=== PATIENT | female | born 1990 | race Caucasian/White ===

== ENCOUNTER 2019-11-12 16:20 | Emergency (ER) | payer OTHER, SELFPAY ==
[2019-11-12] VITALS (9 sets, daily range): BP systolic 93–129; BP diastolic 46–76; PULSE 74–95; RESP 14–22; TEMP 36.7–36.9; O2SAT 99–100
--- NOTE | ~2019-11-12 | XR_ITS ---
EXAMINATION: XR ankle RT min 3V DATE: 11/12/2019 18:26 INDICATION: Lateral right ankle pain post fall TECHNIQUE: Anteroposterior, oblique, mortise, and lateral views of the right ankle were obtained. COMPARISON: None. FINDINGS: Alignment is normal. No fracture. Joint spaces are well maintained. No ankle joint effusion. The so ft tissues are unremarkable. IMPRESSION: 1. Negative right ankle radiographs. Reviewed, dictated and finalized at location A. DUMPER
--- NOTE | ~2019-11-12 | XR_ITS ---
EXAMINATION: XR chest 2V DATE: 11/12/2019 17:18 INDICATION: Midsternal chest pain, syncope and dizziness TECHNIQUE: frontal and lateral views of the chest were obtained. COMPARISON: Chest radiograph dated 07/02/2019 FINDINGS: The lungs remain clear with no focal airspace opacities, pulmonary edema, pleural effusion or pneumot horax. Small portion of the mid right lung is obscured on the frontal projection by a right-sided 2-l ead cardiac pacemaker with lead tips project over the right atrium and right ventricle. The cardiomed iastinal silhouette is normal. Visualized bones and soft tissues are unremarkable. IMPRESSION: 1. No acute cardiopulmonary disease. Reviewed, dictated and finalized at location A. E CASE MANAGEMENT
--- NOTE | ~2019-11-12 | CT_ITS ---
EXAMINATION: CTA chest PE protocol DATE: 11/12/2019 18:13 INDICATION: Chest pain. Syncope. TECHNIQUE: Computed tomography (CT) pulmonary angiogram of the chest was performed with 100 mL Omnipa que-350 intravenous contrast. Additional 3D reconstructions utilizing coronal maximum intensity proje ction (MIP) were performed. Automated exposure control and iterative reconstruction technique were em ployed. The dose-length product was 875.13 mGy-cm. COMPARISON: None FINDINGS: Good contrast opacification of the pulmonary arteries. There is mild streak artifact from dense contr ast in the superior vena cava and right atrium. Mild scattered respiratory motion artifact does not s ignificantly limit evaluation. No pulmonary embolism. No pneumonia, pulmonary edema or pleural effusi on. Heart size is normal. No pericardial effusion. Dual-lead cardiac pacemaker with leads terminating near the right atrial appendage and apex of the right ventricle. No pathologically enlarged thoracic lymphadenopathy. Visualized upper abdomen is unremarkable. Minimal likely physiologic anterior wedgi ng at T11-L1. IMPRESSION: 1. No pulmonary embolism or other acute cardiopulmonary disease. Reviewed, dictated and finalized at location A. CAL RECORD ADMINISTRATOR
--- NOTE | 2019-11-12 16:26 | ECG_ITS ---
Measurements Intervals [place] Rate: 81 P: 40 RI: 128 QRS: 5 QRSD: 114 T: 14 QT: 384 QTc: 447 Interpretive Statements SINUS RHYTHM VOLTAGE CRITERIA FOR LVH BORDERLINE ECG Electronically Signed On 11-13-2019 6:49:12 SAMPLING THEORY TEACHER by Paul Casey D.O.
--- NOTE | 2019-11-12 16:36 | ED.SYNCOPE ---
HPI - Syncope General Chief Complaint: Syncope Stated Complaint: SYNCOPE Time Seen by Provider: 11/12/19 16:20 Source: patient Mode of arrival: EMS Limitations: no limitations History of Present Illness HPI narrative: The pt is a 29 y/o female who presents to the ED, via EMS, c/o syncope. Pt states that she has generally felt off all day, but while at the [facility], she began to experience dizziness and lightheadedness due to her being at there. She then experienced syncope. Pt reports ABD pain, right ankle pain secondary to her falling, resolved nausea, and midsternal CP. Pt notes that she has experienced rhinorrhea, but notes she has a cold. Pt denies vomiting and diarrhea. Pt states that she has had a UTI for the past month, and has been on five separate antibiotics without relief. Pt also notes that she has hemorrhoids. The pt states that her infrastructure tech is Dr. Negro in [place], [place]. MD complaint: loss of consciousness (Syncope) Prodromal symptoms: lightheaded and other (Dizziness, Feeling off ) Context: other (At [facility]) Injuries sustained associated with event: RLE (Right ankle) Current symptoms: chest pain (Midsternal), nausea (Resolved), abdominal pain and other (Right ankle pain, rhinorrhea (pt has a cold)) History: seizure disorder Related Data Allergies Allergy/AdvReac Type Severity Reaction Status Date / Time adhesive tape Allergy Mild Rash Verified 11/12/19 18:20 lorazepam Allergy Mild Itching Unverified 07/11/19 13:59 paroxetine Allergy Mild Rash Verified 11/12/19 18:20 lacosamide Allergy Unknown Unknown Verified 11/12/19 18:26 Review of Systems Review of Systems: All systems reviewed & are unremarkable except as noted in HPI and below Constitutional: Constitutional: Reports other (Feeling off (Prior to syncopal episode)) ENT: Reports other (Rhinorrhea (Pt has a cold)) Cardiovascular: Cardiovascular: Reports chest pain (Midsternal) Gastrointestinal: Gastrointestinal: Reports abdominal pain, Denies diarrhea, Reports nausea (Resolved) and Denies vomiting Musculoskeletal: Musculoskeletal: Reports arthralgias (Right ankle) and Reports other (Right ankle injury) Neurologic: Reports dizziness (Prior to syncopal episode), Reports syncope and Reports other (Lightheadedness (Prior to syncopal episode)) [facility] Past Medical History Medical History (Updated 11/12/19 @ 21:00 by Daniela Marin MD) Anxiety Depression H/O cardiac pacemaker Hemorrhoid Postural orthostatic tachycardia syndrome Seizure Sick sinus syndrome UTI (urinary tract infection) Surgical History Surgical History (Updated 11/12/19 @ 16:53 by Jesus Savage) S/P cardiac pacemaker procedure Social History Social History (Updated 11/12/19 @ 16:53 by Jessu Savage) Smoking status: Never smoker Comments Grievance And Appeals Specialist: Dr. Negro Exam Const: General: cooperative, no acute distress and alert Nutritional Appearance: well nourished Orientation/consciousness: patient oriented x3 Limitations: no limitations HENMT: Mouth: Yes lip normal and Yes moist mucous membranes Eyes: Conjunctivae: conjunctivae normal Pupils: Equal, round and reactive pupils present Resp: Effort & Inspection: normal respiratory effort Auscultation: clear to auscultation bilaterally Cardio: Rate: regular rate Rhythm: regular rhythm Skin: General skin exam: normal color Neuro: General: patient oriented x3 Cognition (Neuro): normal cognition Speech: normal speech Extrem: General: normal to inspection, full ROM and no clubbing, cyanosis or edema Right lower extremity: ankle Details: tenderness (Right lateral ankle) Psych: Mental Status: mental status grossly normal Affect: normal affect Attitude: cooperative Course Course Emergency Course: Patient with no evidence of UT on EKG and troponins. Patient without pulmonary embolism noted on CT scan. Patient with unremarkable testing in the ED. Patient has noted history of vasovagal syncope
[2019-11-12 17:09] LABS: Basophils Percent Auto 0.4 % (0.2-1.2); Eosinophils Absolute Auto 0.2 K/mm3 (0-0.3); Eosinophils Percent Auto 2.1 % (0-4.4); Hematocrit 37.8 % (37.0-47.0); Hemoglobin 11.5 g/dL (12.0-15.0); Immature Granulocyte Absolute 0.02 K/mm3 (0.00-0.031); Immature Granulocyte Percent A 0.2 % (0-0.5); Lymphocytes Absolute Auto 2.68 K/mm3 (0.9-3.2); Lymphocytes Percent Auto 24.3 % (18.3-44.2); Mean Corpuscular HGB Conc 30.4 g/dl (32-36); Mean Corpuscular Hemoglobin 25.6 pg (26-34); Mean Corpuscular Volume 84.2 fl (80-100); Mean Platelet Volume 10.1 fl (7.4-10.4); Monocytes Absolute Auto 0.5 K/mm3 (0.1-0.6); Monocytes Percent Auto 4.9 % (2.6-8.5); Neutrophils Absolute Auto 7.5 K/mm3 (1.3-6.7); Neutrophils Percent Auto 68.1 % (45.5-73.1); Platelet Count Result 345 k/mm3 (150-375); Red Blood Count 4.49 M/mm3 (4.2-5.4); Red Cell Distribution Width 14.5 % (11.5-14.5)
[2019-11-12 17:22] LABS: Prothrombin Time 12.9 Seconds (11.1-14.7)
[2019-11-12 17:24] LABS: Alanine Aminotransferase 15 U/L (4-35); Alkaline Phosphatase 103 U/L (38-126); Aspartate Amino Transferase 19 U/L (14-36); Bilirubin,Total 0.2 mg/dL (0.2-1.3); Blood Urea Nitrogen 11 mg/dL (7-17); Calcium 8.7 mg/dL (8.4-10.2); Carbon Dioxide 27 mmol/L (22-30); Chloride 101 mmol/L (98-107); Estimated CRCL calculation 115 ml/min; Estimated Glomerular Filt Rate > 60; Glucose 89 mg/dL (65-105); Phosphorus 4.2 mg/dL (2.5-4.5); Sodium 137 mmol/L (137-145)
[2019-11-12 17:32] LABS: D Dimer 0.82 ug/mL (<0.48)
[2019-11-12 17:36] LABS: Troponin I < 0.012 ng/mL (0.000-0.034)
[2019-11-12 17:51] LABS: Add Urine Microscopic? YES; Appearance Urine Clear (Clear); Bacteria Urine Trace /hpf; Bilirubin Urine Negative (Negative); Blood Urine 1+ (Negative); Color Urine Yellow (Yellow); Glucose Urine UA Negative (Negative); Ketones Urine Negative (Negative); Leukocyte Esterase Ur 2+ LEU/UL (Negative); Mucus Urine Rare /lpf; Nitrate Urine Negative (Negative); Protein Urine Negative (Negative); RBC Urine 0-2 /hpf (0-2); Specific Grav Ur 1.016 (1.001-1.035); Squamous Epithelial Cell Urine Many /hpf (Few); Urobilinogen Urine Negative mg/dL (<2.0); WBC Urine 0-3 /hpf
[2019-11-12] MEDS: IBUPROFEN 600 MG TABLET PO (18:27)
[2019-11-12 20:48] LABS: Troponin I < 0.012 ng/mL (0.000-0.034)
== END 2019-11-12 21:13 | disposition home or self-care (01) ==
PROVIDERS: Emergency Provider Emergency Medicine
DX: R55 Syncope and collapse (principal); R07.9 Chest pain, unspecified; S93.401A Sprain of unspecified ligament of right ankle, initial encounter; G40.909 Epilepsy, unspecified, not intractable, without status epilepticus; F41.9 Anxiety disorder, unspecified; F32.9 Major depressive disorder, single episode, unspecified; Z95.0 Presence of cardiac pacemaker; X58.XXXA Exposure to other specified factors, initial encounter
CPT/HCPCS: 36415; 71046; 71275; 73610; 80053; 81001; 81025; 83735; 84100; 84484; 85025; 85380; 85610; 85730; 87804; 93005; 99284; A9270; Q9967

== ENCOUNTER 2019-12-13 14:43 | Emergency (ER) | payer OTHER, SELFPAY ==
[2019-12-13] VITALS (7 sets, daily range): BP systolic 106–129; BP diastolic 57–75; PULSE 73–92; RESP 14–30; O2SAT 98–100
--- NOTE | ~2019-12-13 | XR_ITS ---
EXAMINATION: XR chest 2V DATE: 12/13/2019 15:04 INDICATION: Syncope. Shortness of breath and chest pain. TECHNIQUE: Frontal and lateral views of the chest were obtained. COMPARISON: Chest 2 views 11/12/2019 FINDINGS: The chest demonstrates clear lungs without pneumonia, pleural effusion, or pneumothorax. Th e heart size is normal. There is a right chest wall pacer with leads in the right atrium and right ve ntricle. IMPRESSION: 1. No acute cardiopulmonary disease. Reviewed, dictated and finalized at location A.
--- NOTE | 2019-12-13 14:49 | ED.SYNCOPE ---
HPI - Syncope General Chief Complaint: Syncope <Norm Parker MD - Last Filed: 12/14/19 05:54> Stated Complaint: Syncopal Episode <Norm Parker MD - Last Filed: 12/14/19 05:54> Source: patient <Kelsey Queen MD - Last Filed: 12/14/19 06:06> Mode of arrival: EMS <Kelsey Queen MD - Last Filed: 12/14/19 06:06> Limitations: no limitations <Kelsey Queen MD - Last Filed: 12/14/19 06:06> History of Present Illness HPI narrative: A 29 y/o female pt has presented to the ED via EMS with c/o of syncope. Pt states that she was shopping at [employer] in [place], and became weak. Pt sat down on a stool then passed out. She states that she blacked out, but remembers most of what happened. Pt has a history of similar episodes with the last occurring a few months ago.Pt states that she has CP, dysuria, hematuria, loose stools, weakness, and dizziness. Pt denies nausea and ABD pain. Pt also denies a Hx of smoking. Pt notes that she has a Hx of POTS and sick sinus syndrome. Pt has a pacemaker. Pt notes that she was seen at the ED for strep throat last week and was given a Z [place]. After she finished her antibiotics, she was given more antibiotics for an infected lymph node. She notes that she had tubal ligation back in July. Pt denies taking control medication and recent travel. Her chaser helper is Dr. Negro. <Kelsey Queen MD - Last Filed: 12/14/19 06:06> MD complaint: loss of consciousness <Kelsey Queen MD - Last Filed: 12/14/19 06:06> Prodromal symptoms: other (weakness) <Kelsey Queen MD - Last Filed: 12/14/19 06:06> Context: at rest (sitting on a stool) <Kelsey Queen MD - Last Filed: 12/14/19 06:06> Current symptoms: chest pain, weakness and other (dizziness) <Kelsey Queen MD - Last Filed: 12/14/19 06:06> History: previous syncopal episode <Kelsey Queen MD - Last Filed: 12/14/19 06:06> Related Data Home Medications: Home Medications Medication Instructions Recorded Confirmed brexpiprazole [Rexulti] 1 mg PO DAILY 12/13/19 magnesium 200 mg PO DAILY 12/13/19 meclizine 25 mg PO TID PRN 12/13/19 midodrine 10 mg PO TID 12/13/19 potassium chloride 40 meq PO DAILY 12/13/19 <Norm Parker MD - Last Filed: 12/14/19 05:54> Allergies/Adverse Reactions: Allergies Allergy/AdvReac Type Severity Reaction Status Date / Time adhesive tape Allergy Mild Rash Verified 12/13/19 14:52 lorazepam Allergy Mild Itching Unverified 12/13/19 14:52 paroxetine Allergy Mild Rash Verified 12/13/19 14:52 lacosamide Allergy Unknown Unknown Verified 12/13/19 14:52 <Norm Parker MD - Last Filed: 12/14/19 05:54> Review of Systems Review of Systems: Narrative: CARDIOVASCULAR: Reports chest pain. GASTROINTESTINAL: Denies abdominal pain, and nausea; Reports loose stools. GENITOURINARY: Reports dysuria or hematuria. NEUROLOGIC: Reports syncope, dizziness, and weakness. <Kelsey Queen MD - Last Filed: 12/14/19 06:06> [facility] Past Medical History Medical History: Medical History Anxiety Depression H/O cardiac pacemaker Hemorrhoid Postural orthostatic tachycardia syndrome Seizure Sick sinus syndrome UTI (urinary tract infection) <Norm Parker MD - Last Filed: 12/14/19 05:54> Surgical History Surgical History: Surgical History S/P cardiac pacemaker procedure <Norm Parker MD - Last Filed: 12/14/19 05:54> Social History Social History: Social History Smoking status: Never smoker Gender identity (if verbalized by the patient): Female <Norm Parker MD - Last Filed: 12/14/19 05:54> Comments Production Broaching Machine Operator is Dr. Negro PCP is Dr. Castro <Kelsey Queen MD - Last Filed: 12/14/19 06:06> Exam Narrative: Exam Narrative
--- NOTE | 2019-12-13 14:57 | ECG_ITS ---
Measurements Intervals [place] Rate: 83 P: 40 IN: 120 QRS: 9 QRSD: 101 T: 2 QT: 392 QTc: 462 Interpretive Statements SINUS RHYTHM NORMAL ECG Electronically Signed On 12-14-2019 7:43:17 CDT by Paul Casey D.O.
[2019-12-13] MEDS: SODIUM CHLORIDE 0.9% IV 1,000 ML 999 ML IV CONT ×2 (15:11)
[2019-12-13 15:24] LABS: Basophils Percent Auto 0.4 % (0.2-1.2); Eosinophils Absolute Auto 0.2 K/mm3 (0-0.3); Hematocrit 37.9 % (37.0-47.0); Hemoglobin 11.5 g/dL (12.0-15.0); Immature Granulocyte Absolute 0.08 K/mm3 (0.00-0.031); Lymphocytes Absolute Auto 2.64 K/mm3 (0.9-3.2); Mean Corpuscular HGB Conc 30.3 g/dl (32-36); Mean Corpuscular Hemoglobin 25.6 pg (26-34); Mean Corpuscular Volume 84.2 fl (80-100); Mean Platelet Volume 10.3 fl (7.4-10.4); Monocytes Absolute Auto 0.4 K/mm3 (0.1-0.6); Monocytes Percent Auto 5.5 % (2.6-8.5); Neutrophils Absolute Auto 4.6 K/mm3 (1.3-6.7); Neutrophils Percent Auto 57.1 % (45.5-73.1); Platelet Count Result 337 k/mm3 (150-375); Red Cell Distribution Width 14.2 % (11.5-14.5)
[2019-12-13 15:30] LABS: Blood Urea Nitrogen 7 mg/dL (7-17); Calcium 8.1 mg/dL (8.4-10.2); Carbon Dioxide 28 mmol/L (22-30); Chloride 103 mmol/L (98-107); Estimated Glomerular Filt Rate > 60; Glucose 66 mg/dL (65-105); Potassium 3.9 mmol/L (3.4-5.0); Sodium 138 mmol/L (137-145)
[2019-12-13 15:31] LABS: Partial Thromboplastin Time 27.7 SECONDS (22.3-36.8); Prothrombin Time 12.5 Seconds (11.1-14.7)
[2019-12-13 15:34] LABS: D Dimer 0.37 ug/mL (<0.48)
[2019-12-13 15:41] LABS: Add Urine Microscopic? YES; Appearance Urine Clear (Clear); Bilirubin Urine Negative (Negative); Blood Urine 2+ (Negative); Color Urine Yellow (Yellow); Glucose Urine UA Negative (Negative); Ketones Urine Negative (Negative); Leukocyte Esterase Ur Trace LEU/UL (Negative); Mucus Urine Rare /lpf; Nitrate Urine Negative (Negative); Protein Urine Negative (Negative); RBC Urine >75 /hpf (0-2); Specific Grav Ur 1.013 (1.001-1.035); Squamous Epithelial Cell Urine Many /hpf (Few); Urobilinogen Urine Negative mg/dL (<2.0); WBC Urine 0-3 /hpf
[2019-12-13 15:42] LABS: Troponin I < 0.012 ng/mL (0.000-0.034)
[2019-12-13] MEDS: KETOROLAC 15 MG/ML VIAL (*BKC) IV PUSH (15:47)
[2019-12-13] MEDS: ONDANSETRON INJ 4 MG/2 ML VIAL IV PUSH (15:49)
--- NOTE | 2019-12-13 17:23 | PC.NURSE ---
[employer] PACEMAKER INTERPRETED AT THIS TIME.
--- NOTE | 2019-12-13 17:38 | PC.NURSE ---
Addendum entered by Jayesh Vega RN 12/13/19 17:39: Rep states that she does not see anything abnormal for the pt in today's report. states that if any further information is need to contact her at [phone]. Original Note: spoke with [employer] Res[employer] rep at this time.
[2019-12-13 18:23] LABS: Troponin I < 0.012 ng/mL (0.000-0.034)
== END 2019-12-13 18:49 | disposition home or self-care (01) ==
PROVIDERS: Emergency Provider Emergency Medicine
DX: R55 Syncope and collapse (principal); Z95.0 Presence of cardiac pacemaker; I49.8 Other specified cardiac arrhythmias; I49.5 Sick sinus syndrome; Z87.440 Personal history of urinary (tract) infections
CPT/HCPCS: 36415; 71046; 80048; 81001; 81025; 84484; 85025; 85380; 85610; 85730; 93005; 96361; 96374; 96375; 99284; J1885; J2405; J7030

== ENCOUNTER 2020-06-28 11:11 | Emergency (ER) | payer OTHER, SELFPAY ==
--- NOTE | ~2020-06-28 | CT_ITS ---
EXAMINATION: CT abdomen pelvis w con DATE: 06/28/2020 13:24 INDICATION: Abdominal pain and rectal bleeding. TECHNIQUE: Computed tomography (CT) of the abdomen and pelvis was performed with 100 mL Omnipaque-350 intravenous contrast. Automated exposure control and iterative reconstruction technique were employe d. The dose-length product was 1428.84 mGy-cm. COMPARISON: None FINDINGS: Visualized lower lungs are clear. Heart size is normal. No pericardial or pleural effusion. Cardiac p acemaker leads terminating at the right atrial appendage and near the apex of the right ventricle. Li julissa, gallbladder, spleen, pancreas, bilateral adrenal glands and kidneys are normal. Bladder, antever tomasa uterus and bilateral adnexa are unremarkable. Bowels including the appendix are normal. No free i ntraperitoneal gas or fluid. No pathologically enlarged abdominal or pelvic lymphadenopathy.. Tiny fa t-containing umbilical hernia. Mild thoracolumbar dextrocurvature with mild lower thoracic spondylosi s. IMPRESSION: 1. No acute intra-abdominal/pelvic process. Reviewed, dictated and finalized at location B.
[2020-06-28 11:15] VITALS: BP 112/81; PULSE 83; RESP 17; TEMP 36.7; O2SAT 98
--- NOTE | 2020-06-28 11:27 | ED.GIBLEED ---
HPI - GI Bleed General Chief complaint: GI Bleed Stated complaint: bloody stool Time Seen by Provider: 06/28/20 11:27 Source: patient Mode of arrival: ambulatory Limitations: no limitations History of Present Illness HPI Narrative: Patient is a 29-year-old female with a history of pots, anxiety, depression who presents for evaluation of abdominal pain, nausea and rectal bleeding. Patient reports symptoms have been ongoing over the past 12 hours. Pain is throughout her abdomen, dull and aching in nature. She was seen at [facility] after she had noticed bright red blood present in her stool, and was told that she was fine and discharged home. She denies any laboratory testing or imaging were done. Patient denies any ibuprofen or anticoagulation. She denies any syncopal events. She often feels lightheaded, but states this is baseline for her. She denies fever, chills, does report decreased oral intake. Denies hematuria or dysuria. Patient denies history of cancer in herself. Related Data Home Medications Medication Instructions Recorded Confirmed brexpiprazole [Rexulti] 1 mg PO DAILY 12/13/19 magnesium 200 mg PO DAILY 12/13/19 meclizine 25 mg PO TID PRN 12/13/19 midodrine 10 mg PO TID 12/13/19 potassium chloride 40 meq PO DAILY 12/13/19 Allergies Allergy/AdvReac Type Severity Reaction Status Date / Time adhesive tape Allergy Mild Rash Verified 06/28/20 11:29 lorazepam Allergy Mild Itching Verified 06/28/20 11:29 paroxetine Allergy Mild Rash Verified 06/28/20 11:29 lacosamide Allergy Unknown Unknown Verified 06/28/20 11:29 Review of Systems Review of Systems: Narrative: CONSTITUTIONAL: Denies fever, chills, or sweats. CARDIOVASCULAR: Denies chest pain, palpitations, or edema. RESPIRATORY: Denies cough or dyspnea. GASTROINTESTINAL: Reports abdominal pain, nausea without vomiting, rectal bleeding GENITOURINARY: Denies dysuria or hematuria. SKIN: Denies rash or itching. MUSCULOSKELETAL: Denies back pain, joint pain, or myalgia. NEUROLOGIC: Denies headache, numbness, or weakness. PSYCHIATRIC: Reports anxiety and depression [facility] Past Medical History Medical History (Updated 06/28/20 @ 14:04 by Kelsey Queen MD) Anxiety Depression H/O cardiac pacemaker Hemorrhoid Postural orthostatic tachycardia syndrome Seizure Sick sinus syndrome UTI (urinary tract infection) Surgical History Surgical History S/P cardiac pacemaker procedure Social History Social History Smoking status: Never smoker Gender identity (if verbalized by the patient): Female Exam Narrative: Exam Narrative: GENERAL: Awake, alert, conversant HEAD: Normocephalic, atraumatic. EYES: PERRLA and EOMI. ENT: Nares clear, no rhinorrhea or epistaxis. Mucous membranes moist. NECK: Supple. CHEST: No respiratory distress, breathing even and non labored HEART: Regular rate, sinus rhythm ABDOMEN:Obese, non distended, non tender Rectum: No hemorrhoids, some scant blood present, no melanotic stool EXTREMITIES: Normal range of motion. No edema. SKIN: Warm, dry, no rash. NEURO:No focal deficits. Alert and oriented x3 Course Vital Signs Vital signs: Vital Signs Temperature 36.7 C 06/28/20 11:15 Pulse Rate 83 06/28/20 11:15 Respiratory Rate 17 06/28/20 11:15 Blood Pressure 112/81 06/28/20 11:15 Pulse Oximetry 98 06/28/20 11:15 Temperature 36.7 C 06/28/20 11:15 Pulse Rate 83 06/28/20 11:15 Respiratory Rate 17 06/28/20 11:15 Blood Pressure 112/81 06/28/20 11:15 Pulse Oximetry 98 06/28/20 11:15 MDM - GI Bleed MDM Narrative Medical decision making narrative: Patient presenting for evaluation of bright red blood per rectum. The time of assessment, ABCs are intact and vital signs are stable. On exam, no melanotic stool. Abdomen is not focally tender. Patient is otherwise well-appearing.
[2020-06-28 11:36] LABS: Basophils Percent Auto 0.5 % (0.2-1.2); Eosinophils Absolute Auto 0.3 K/mm3 (0-0.3); Eosinophils Percent Auto 3.2 % (0-4.4); Hematocrit 37.3 % (37.0-47.0); Hemoglobin 11.6 g/dL (12.0-15.0); Immature Granulocyte Absolute 0.02 K/mm3 (0.00-0.031); Immature Granulocyte Percent A 0.2 % (0-0.5); Lymphocytes Absolute Auto 3.43 K/mm3 (0.9-3.2); Lymphocytes Percent Auto 42.5 % (18.3-44.2); Mean Corpuscular HGB Conc 31.1 g/dl (32-36); Mean Corpuscular Hemoglobin 26.7 pg (26-34); Mean Corpuscular Volume 85.7 fl (80-100); Mean Platelet Volume 10.8 fl (7.4-10.4); Monocytes Absolute Auto 0.5 K/mm3 (0.1-0.6); Monocytes Percent Auto 6.6 % (2.6-8.5); Neutrophils Absolute Auto 3.8 K/mm3 (1.3-6.7); Platelet Count Result 282 k/mm3 (150-375); Red Blood Count 4.35 M/mm3 (4.2-5.4); Red Cell Distribution Width 14.6 % (11.5-14.5); White Blood Count 8.1 K/mm3 (4.5-10.0)
[2020-06-28 11:45] LABS: Prothrombin Time 12.5 Seconds (11.1-14.7)
[2020-06-28 11:46] LABS: Alanine Aminotransferase 18 U/L (4-35); Albumin Level 3.7 g/dL (3.5-5.1); Alkaline Phosphatase 93 U/L (38-126); Anion Gap 5 mmol/L (8-16); Aspartate Amino Transferase 24 U/L (14-36); Bilirubin,Total 0.3 mg/dL (0.2-1.3); Blood Urea Nitrogen 8 mg/dL (7-17); Calcium 8.7 mg/dL (8.4-10.2); Carbon Dioxide 28 mmol/L (22-30); Chloride 103 mmol/L (98-107); Estimated CRCL calculation 115 ml/min; Estimated Glomerular Filt Rate > 60; Glucose 83 mg/dL (65-105); Partial Thromboplastin Time 26.4 SECONDS (22.3-36.8); Sodium 136 mmol/L (137-145)
[2020-06-28] MEDS: SODIUM CHLORIDE 0.9% IV 1,000 ML 999 ML IV CONT (11:51)
--- NOTE | 2020-06-28 13:15 | PC.NURSE ---
Pt to CT scan via stretcher.
[2020-06-28 13:28] LABS: Add Urine Microscopic? YES; Appearance Urine Clear (Clear); Bacteria Urine Trace /hpf; Bilirubin Urine Negative (Negative); Blood Urine Negative (Negative); Color Urine Straw (Yellow); Glucose Urine UA Negative (Negative); Ketones Urine Negative (Negative); Leukocyte Esterase Ur Negative LEU/UL (Negative); Mucus Urine Rare /lpf; Nitrate Urine Negative (Negative); Protein Urine Negative (Negative); RBC Urine 0-2 /hpf (0-2); Specific Grav Ur 1.012 (1.001-1.035); Squamous Epithelial Cell Urine Many /hpf (Few); Urobilinogen Urine Negative mg/dL (<2.0); WBC Urine 0-3 /hpf
[2020-06-28 14:18] VITALS: BP 115/78; PULSE 80; RESP 18; O2SAT 100
== END 2020-06-28 14:20 | disposition home or self-care (01) ==
PROVIDERS: Emergency Provider Emergency Medicine
DX: K62.5 Hemorrhage of anus and rectum (principal); F41.9 Anxiety disorder, unspecified; F32.9 Major depressive disorder, single episode, unspecified; Z95.0 Presence of cardiac pacemaker; I49.8 Other specified cardiac arrhythmias; Z87.440 Personal history of urinary (tract) infections
CPT/HCPCS: 36415; 74177; 80053; 81001; 81025; 85025; 85610; 85730; 86850; 86900; 86901; 96360; 99284; J7030; Q9967

== ENCOUNTER 2020-07-16 14:30 | Emergency (ER) | payer OTHER, SELFPAY ==
--- NOTE | ~2020-07-16 | XR_ITS ---
EXAMINATION: XR chest 1V portable DATE: 07/16/2020 15:00 INDICATION: Chest pain and pressure TECHNIQUE: frontal view of the chest was obtained. COMPARISON: Chest radiograph dated 12/13/2019 FINDINGS: The lungs remain clear with no focal airspace opacities, pulmonary edema, pleural effusion or pneumot horax. The cardiomediastinal silhouette is normal. Visualized bones and soft tissues are unremarkable . Dual lead pacemaker which obscures a small portion of the central right midlung zone with pair of p acemaker leads the tips of which project over the expected locations of the right atrium and right ve ntricle. IMPRESSION: 1. No acute cardiopulmonary disease. Reviewed, dictated and finalized at location B.
[2020-07-16 14:38] VITALS: BP 114/69; PULSE 95; RESP 18; TEMP 37.1; O2SAT 97
[2020-07-16 15:33] LABS: Basophils Absolute Auto 0.1 K/mm3 (0.0-0.1); Basophils Percent Auto 0.5 % (0.2-1.2); Eosinophils Absolute Auto 0.2 K/mm3 (0-0.3); Eosinophils Percent Auto 1.8 % (0-4.4); Hematocrit 38.2 % (37.0-47.0); Hemoglobin 12.1 g/dL (12.0-15.0); Immature Granulocyte Absolute 0.02 K/mm3 (0.00-0.031); Immature Granulocyte Percent A 0.2 % (0-0.5); Lymphocytes Absolute Auto 2.57 K/mm3 (0.9-3.2); Mean Corpuscular HGB Conc 31.7 g/dl (32-36); Mean Corpuscular Hemoglobin 27.2 pg (26-34); Mean Corpuscular Volume 85.8 fl (80-100); Mean Platelet Volume 10.4 fl (7.4-10.4); Monocytes Absolute Auto 0.5 K/mm3 (0.1-0.6); Monocytes Percent Auto 4.8 % (2.6-8.5); Neutrophils Percent Auto 67.7 % (45.5-73.1); Platelet Count Result 309 k/mm3 (150-375); Red Blood Count 4.45 M/mm3 (4.2-5.4); Red Cell Distribution Width 14.7 % (11.5-14.5); White Blood Count 10.3 K/mm3 (4.5-10.0)
--- NOTE | 2020-07-16 15:48 | ED.CHESTPAIN ---
HPI - Chest Pain General Chief Complaint: Chest Pain Stated Complaint: CP Time Seen by Provider: 07/16/20 14:39 Source: patient and family Mode of arrival: EMS Limitations: no limitations History of Present Illness HPI narrative: Patient is a 29-year-old female who presents with pain across the chest worse with coughing activity and [place] and currently is experiencing increasing pain with similar occurrences in the past stress-induced Related Data Home Medications Medication Instructions Recorded Confirmed brexpiprazole [Rexulti] 1 mg PO DAILY 12/13/19 magnesium 200 mg PO DAILY 12/13/19 meclizine 25 mg PO TID PRN 12/13/19 midodrine 10 mg PO TID 12/13/19 potassium chloride 40 meq PO DAILY 12/13/19 Allergies Allergy/AdvReac Type Severity Reaction Status Date / Time adhesive tape Allergy Mild Rash Verified 06/28/20 11:29 lorazepam Allergy Mild Itching Verified 06/28/20 11:29 paroxetine Allergy Mild Rash Verified 06/28/20 11:29 lacosamide Allergy Unknown Unknown Verified 06/28/20 11:29 Review of Systems Review of Systems: All systems reviewed & are unremarkable except as noted in HPI and below PMFSH Past Medical History Medical History (Updated 07/16/20 @ 16:56 by Ryan Winters PA-C) Anxiety Depression H/O cardiac pacemaker Hemorrhoid Postural orthostatic tachycardia syndrome Seizure Sick sinus syndrome UTI (urinary tract infection) Surgical History Surgical History S/P cardiac pacemaker procedure Social History Social History Smoking status: Never smoker Gender identity (if verbalized by the patient): Female Exam Narrative: Exam Narrative: GENERAL: Well-appearing, well-nourished, and in no acute distress. HEAD: Normocephalic, atraumatic. EYES: PERRLA and EOMI. ENT: Nares clear, no rhinorrhea or epistaxis. Mucous membranes moist. CHEST: Clear to auscultation. No respiratory distress. No wheezes rales or rhonchi HEART: Regular rate and rhythm. No murmur heard. EXTREMITIES: Normal range of motion. No edema. SKIN: Warm, dry, no rash. NEURO: No focal deficits. Alert and oriented x3. PSYCH: Normal mood and affect. Course Course Emergency Course: Patient in the room in no distress no high risk changes in her imaging or blood work felt appropriate for discharge home Vital Signs Vital signs: Vital Signs Temperature 98.7 F 07/16/20 14:38 Pulse Rate 95 07/16/20 14:38 Respiratory Rate 18 07/16/20 14:38 Blood Pressure 114/69 07/16/20 14:38 Pulse Oximetry 97 07/16/20 14:38 Temperature 98.7 F 07/16/20 14:38 Pulse Rate 95 07/16/20 14:38 Respiratory Rate 18 07/16/20 14:38 Blood Pressure 114/69 07/16/20 14:38 Pulse Oximetry 97 07/16/20 14:38 MDM - Chest Pain MDM Narrative Medical decision making narrative: Patients EKGs and labs are without significant high risk changes. Cardiac risk factors were reviewed. Patient is felt likely to be low risk for ACS and reasonable for further risk stratification testing as an outpatient. Pain was not sudden or maximal in onset without tearing or ripping. quality. No other signs or symptoms to suggest aortic dissection. A low-risk Wells criteria is noted. PE is felt to be unlikely. No pneumonia or URI symptoms were seen on evaluation today. Patient is felt to be reasonable for continued evaluation as an outpatient. Lab Data Result diagrams: 07/16/20 15:26 07/16/20 15:26 Labs: Lab Results 07/16/20 07/16/20 07/16/20 Range/Units 15:26 15:26 16:05 WBC 10.3 H (4.5-10.0) K/mm3 RBC 4.45 (4.2-5.4) M/mm3 Hgb 12.1 (12.0-15.0) g/dL Hct 38.2 (37.0-47.0) % MCV 85.8 (80-100) fl MCH 27.2 (26-34) pg MCHC 31.7 L (32-36) g/dl RDW 14.7 H (11.5-14.5) % Plt Count 309 (150-375) k/mm3 MPV 1
[2020-07-16 15:52] LABS: Alanine Aminotransferase 16 U/L (4-35); Albumin Level 3.9 g/dL (3.5-5.1); Alkaline Phosphatase 95 U/L (38-126); Anion Gap 7 mmol/L (8-16); Aspartate Amino Transferase 30 U/L (14-36); Bilirubin,Total 0.4 mg/dL (0.2-1.3); Blood Urea Nitrogen 12 mg/dL (7-17); Calcium 8.5 mg/dL (8.4-10.2); Carbon Dioxide 29 mmol/L (22-30); Chloride 102 mmol/L (98-107); Estimated CRCL calculation 130 ml/min; Estimated Glomerular Filt Rate > 60; Glucose 99 mg/dL (65-105); Potassium 3.9 mmol/L (3.4-5.0); Sodium 138 mmol/L (137-145)
[2020-07-16 15:57] LABS: Troponin I < 0.012 ng/mL (0.000-0.034)
[2020-07-16] MEDS: METOCLOPRAMIDE HCL INJ 10 MG/2 ML VIAL IV PUSH (16:00)
[2020-07-16 16:28] LABS: D Dimer 0.42 ug/mL (<0.48)
[2020-07-16 17:33] VITALS: BP 130/68; PULSE 80; RESP 18; O2SAT 99
== END 2020-07-16 17:35 | disposition home or self-care (01) ==
PROVIDERS: Emergency Provider Emergency Medicine
DX: R07.9 Chest pain, unspecified (principal); F41.9 Anxiety disorder, unspecified; F32.9 Major depressive disorder, single episode, unspecified; Z95.0 Presence of cardiac pacemaker; Z87.440 Personal history of urinary (tract) infections; I49.8 Other specified cardiac arrhythmias
CPT/HCPCS: 36415; 71045; 80053; 84484; 85025; 85380; 96365; 96375; 99284; J0131; J2765

== ENCOUNTER 2021-06-15 11:23 | Emergency (ER) | payer OTHER, SELFPAY ==
--- NOTE | ~2021-06-15 | XR_ITS ---
EXAMINATION: XR lumbar spine 2-3V DATE: 06/15/2021 12:26 INDICATION: Low back pain radiating down the right leg TECHNIQUE: Anteroposterior and lateral views of the lumbar spine, and cone-down lateral view of the l umbosacral junction were obtained. COMPARISON: None. FINDINGS: Alignment is normal. Vertebral body and disc heights are normal. Lumbar facet and bilateral sacroilia c joints appear normal. Sacral arches are intact. Soft tissues are unremarkable. IMPRESSION: 1. Normal lumbar spine radiographs. Reviewed, dictated and finalized at location A.
[2021-06-15 11:36] VITALS: BP 135/62; PULSE 94; RESP 16; TEMP 36.6; O2SAT 100
--- NOTE | 2021-06-15 12:29 | ED.EXTPRO ---
HPI - Extremity Problem General Chief complaint: Extremity Problem,Nontraumatic Stated complaint: SHRUTI MIKE IN LEG Time Seen by Provider: 06/15/21 11:41 Source: patient Mode of arrival: ambulatory Limitations: no limitations History of Present Illness HPI Narrative: This is a 30 year old female that presents to the ER for right leg pain present over the last 9 days. Reports the pain is in the right buttock and radiates into the back of the leg. It has been there constantly. Worse with movement. No known injury or trauma. Denies fever, numbness, weakness, recent surgery or travel, edema, or erythema. Related Data Home Medications Medication Instructions Recorded Confirmed brexpiprazole [Rexulti] 1 mg PO DAILY 12/13/19 magnesium 200 mg PO DAILY 12/13/19 meclizine 25 mg PO TID PRN 12/13/19 midodrine 10 mg PO TID 12/13/19 potassium chloride 40 meq PO DAILY 12/13/19 bupropion HCl PO 06/15/21 Allergies Allergy/AdvReac Type Severity Reaction Status Date / Time adhesive tape Allergy Mild Rash Verified 06/28/20 11:29 lorazepam Allergy Mild Itching Verified 06/28/20 11:29 paroxetine Allergy Mild Rash Verified 06/28/20 11:29 lacosamide Allergy Unknown Unknown Verified 06/28/20 11:29 Review of Systems Review of Systems: CONSTITUTIONAL: Denies fever SKIN: Denies rash MUSCULOSKELETAL: Reports back pain, joint pain, and myalgia. NEUROLOGIC: Denies numbness, or weakness. All systems reviewed & are unremarkable except as noted in HPI and below PMFSH Past Medical History Medical History (Updated 06/15/21 @ 13:41 by Marge Parnell PA-C) Anxiety Depression H/O cardiac pacemaker Hemorrhoid Postural orthostatic tachycardia syndrome Seizure Sick sinus syndrome UTI (urinary tract infection) Surgical History Surgical History S/P cardiac pacemaker procedure Social History Social History Smoking status: Never smoker Gender identity (if verbalized by the patient): Female Exam Narrative: GENERAL: Well-appearing, obese, and in no acute distress. HEAD: Normocephalic, atraumatic. EYES: EOMI. CHEST: Clear to auscultation. No respiratory distress. No wheezes rales or rhonchi HEART: Regular rate and rhythm. No murmur heard. Normal peripheral pulses. BACK: Tender to palpation of the lumbar paraspinal musculature on the right. EXTREMITIES: Normal range of motion. No edema or erythema. Strength equal in bilateral lower extremities (5/5). Normal DP pulses SKIN: Warm, dry, no rash. NEURO: No focal deficits. Alert and oriented x3. PSYCH: Normal mood and affect Course Vital Signs Vital signs: Vital Signs Temperature 97.9 F 06/15/21 11:36 Pulse Rate 94 06/15/21 11:36 Respiratory Rate 16 06/15/21 11:36 Blood Pressure 135/62 06/15/21 11:36 Pulse Oximetry 100 06/15/21 11:36 Temperature 97.9 F 06/15/21 11:36 Pulse Rate 94 06/15/21 11:36 Respiratory Rate 16 06/15/21 11:36 Blood Pressure 135/62 06/15/21 11:36 Pulse Oximetry 100 06/15/21 11:36 MDM - Extremity (Nontraumatic) MDM Narrative Medical decision making narrative: This is a 30 year old female that presents to the ER for low back pain radiating down the right leg. Symptoms seem consistent with possible sciatica. She is neurologically intact. Lumbar spine radiographs are without acute findings. Patient was updated on case findings. Instructed to rest, ice and use [id number] pain medication as needed. She will be given muscle relaxer as needed for pain and started on steroid taper. She is to follow-up with her primary care doctor. She was given warnings to return to the ER Imaging Data Radiologist's impression: ITS Impressions Lumbar Spine X-Ray 06/15/21 12:30 IMPRESSION: 1. Normal lumbar spine radiographs. Critical Care Time Critical Care Time Critical Care Time: No Dischar
[2021-06-15] MEDS: ACETAMINOPHEN 500 MG TABLET 1000 MG PO (12:53)
[2021-06-15] MEDS: KETOROLAC (*BKC) 60 MG/2 ML VIAL IM (12:54)
[2021-06-15] MEDS: CYCLOBENZAPRINE HCL 10 MG TABLET PO (12:54)
== END 2021-06-15 13:52 | disposition home or self-care (01) ==
PROVIDERS: Emergency Provider Emergency Medicine; PCP Internal Medicine
DX: M54.31 Sciatica, right side (principal); F41.9 Anxiety disorder, unspecified; F32.9 Major depressive disorder, single episode, unspecified; Z95.0 Presence of cardiac pacemaker; Z87.440 Personal history of urinary (tract) infections
CPT/HCPCS: 72100; 96372; 99283; A9270; J1885

== ENCOUNTER 2022-02-28 10:01 | Emergency (ER) | payer OTHER, SELFPAY ==
[2022-02-28 10:10] VITALS: BP 122/63; PULSE 84; RESP 14; TEMP 36.8; O2SAT 100
--- NOTE | 2022-02-28 10:14 | ED.URI ---
HPI - URI/Sore Throat General Chief Complaint: Upper Respiratory Infection Stated Complaint: Sore Throat Time Seen by Provider: 02/28/22 10:21 Source: patient and RN notes reviewed Mode of arrival: ambulatory Limitations: no limitations History of Present Illness HPI Narrative: 31-year-old female presents with concern for 5-day history of sore throat, nasal congestion, rhinorrhea, postnasal drainage. Reports she had a fever at the beginning of her symptoms. She denies any [id number] intervention. She reports cough without shortness of breath. MD elicited complaint: cough and sore throat Related Data Home Medications Medication Instructions Recorded Confirmed bupropion HCl 100 mg tablet 300 mg PO DAILY 06/15/21 02/28/22 aripiprazole 2 mg tablet 2 mg PO DAILY 02/28/22 02/28/22 trazodone 100 mg tablet 100 mg PO HS 02/28/22 02/28/22 Allergies Allergy/AdvReac Type Severity Reaction Status Date / Time adhesive tape Allergy Mild Rash Verified 06/28/20 11:29 lorazepam Allergy Mild Itching Verified 06/28/20 11:29 paroxetine Allergy Mild Rash Verified 06/28/20 11:29 lacosamide Allergy Unknown Rash Verified 02/28/22 10:16 Review of Systems Review of Systems: CONSTITUTIONAL: Denies malaise reports c. Denies sweats, or fever. EYES: Denies visual changes, redness, or discharge. ENT: Reports rhinorrhea, congestion, sore throat. Denies sinus pain, otalgia CARDIOVASCULAR: Denies chest pain, palpitations, or edema. RESPIRATORY: Reports cough. Denies dyspnea. GASTROINTESTINAL: Denies abdominal pain, nausea, vomiting, diarrhea SKIN: Denies rash or itching. MUSCULOSKELETAL: Denies myalgia. NEUROLOGIC: Denies headache. All systems reviewed & are unremarkable except as noted in HPI and below PMFSH Past Medical History Medical History (Updated 02/28/22 @ 10:45 by Gabby Hou NP) Anxiety Depression H/O cardiac pacemaker Hemorrhoid Postural orthostatic tachycardia syndrome Seizure Sick sinus syndrome UTI (urinary tract infection) Surgical History Surgical History S/P cardiac pacemaker procedure Social History Social History Smoking status: Never smoker Gender identity (if verbalized by the patient): Female Comments At time of signature, agree with nursing past medical, surgical, social and family history. There is no relevant family history pertinent to the presenting complaint Exam Narrative: GENERAL: Well-appearing, well-nourished, and in no acute distress. HEAD: Normocephalic EYES: PERRLA, conjunctivae clear ENT: Nares clear, turbinates edematous and erythematous, green discharge. Mucous membranes moist. TM pearly bradley with dull light reflex bilaterally; no tragal tenderness. Oropharynx not erythematous without lesions. Tonsils not enlarged and without exudate, no drooling, no hoarseness, no trismus, uvula midline. NECK: Supple. No lymphadenopathy CHEST: Clear to auscultation, breath sounds equal. No wheezing, rhonchi, rales, or stridor. No respiratory distress, speaks in full sentences. HEART: Regular rate and rhythm. No murmur heard. SKIN: Warm, dry, no rash. NEURO: Alert and oriented x3. PSYCH: Normal mood and affect Course Course Emergency Course: Patient is aware of diagnosis, understands and agrees to treatment plan. Anticipatory guidance given. Patient agrees to follow-up as directed and is aware of reasons to seek care at the emergency department. Portions of this record may have been created with voice recognition software Level of Care: Express Care Visit Vital Signs Vital signs: Vital Signs Temperature 98.2 F 02/28/22 10:10 Pulse Rate 84 02/28/22 10:10 Respiratory Rate 14 02/28/22 10:10 Blood Pressure 122/63 02/28/22 10:10 Pulse Oximetry 100 02/28/22 10:10 Oxygen Delivery Room Air 02/28/22 10:10 Temperature 98.2 F 02/28/22 10:10 Pulse Rat
[2022-02-28 10:18] VITALS: BP 122/63; PULSE 84; RESP 14; TEMP 36.8; O2SAT 100
== END 2022-02-28 10:50 | disposition home or self-care (01) ==
PROVIDERS: Emergency Provider Nurse Practitioner; PCP Internal Medicine
DX: J32.9 Chronic sinusitis, unspecified (principal); J40 Bronchitis, not specified as acute or chronic; Z20.822 Contact with and (suspected) exposure to COVID-19; I49.5 Sick sinus syndrome; Z95.0 Presence of cardiac pacemaker; F41.9 Anxiety disorder, unspecified; F32.A Depression, unspecified
CPT/HCPCS: 87081; 87426; 87880; 99213; C9803; G0463

== ENCOUNTER 2022-07-11 11:25 | Emergency (ER) | payer OTHER, SELFPAY ==
[2022-07-11 11:30] VITALS: BP 133/68; PULSE 115; RESP 18; TEMP 36.6; O2SAT 99
--- NOTE | 2022-07-11 12:04 | ED.GENADULT ---
HPI - General Adult General Chief complaint: Upper Respiratory Infection Stated complaint: sore throat cough change of taste Source: patient Mode of arrival: ambulatory Limitations: no limitations History of Present Illness HPI narrative: Patient presents for evaluation of fever and sore throat. She indicates her daughter tested positive for strep last Sunday. The following day she developed her symptoms. No chills, nausea, vomiting, diarrhea. She does have some postnasal drainage and occasional cough. She had COVID in August 2021. She does not smoke. She went to her primary care provider's office today to be evaluated for her sore throat. She states she had a syncopal episode while there. She states this is not unusual for her as she has sick sinus syndrome and POTS. She was sent to [facility] this morning and states she had a workup, including cardiac testing, which was negative. She states they refused to perform a strep screen so was discharged. She came here for strep testing. Related Data Home Medications Medication Instructions Recorded Confirmed bupropion HCl 100 mg tablet 300 mg PO DAILY 06/15/21 07/11/22 aripiprazole 2 mg tablet 2 mg PO DAILY 02/28/22 07/11/22 trazodone 100 mg tablet 100 mg PO HS 02/28/22 07/11/22 budesonide-formoterol HFA 160 2 puff inhalation Q12H 07/11/22 07/11/22 mcg-4.5 mcg/actuation aerosol inhaler (Symbicort) metoprolol succinate 25 mg 25 mg PO DAILY 07/11/22 07/11/22 tablet,extended release 24 hr Allergies Allergy/AdvReac Type Severity Reaction Status Date / Time adhesive tape Allergy Mild Rash Verified 07/11/22 11:42 lorazepam Allergy Mild Itching Verified 07/11/22 11:42 paroxetine Allergy Mild Rash Verified 07/11/22 11:42 lacosamide Allergy Unknown Rash Verified 07/11/22 11:42 Review of Systems Review of Systems: CONSTITUTIONAL: Reports fever. Denies chills, or sweats. EYES: Denies visual changes, redness, or discharge. ENT: Reports sore throat. Denies rhinorrhea, congestion, or otalgia. CARDIOVASCULAR: Denies chest pain, palpitations, or edema. RESPIRATORY: Denies cough or dyspnea. GASTROINTESTINAL: Denies abdominal pain, nausea, vomiting, or diarrhea. GENITOURINARY: Denies dysuria or hematuria. SKIN: Denies rash or itching. MUSCULOSKELETAL: Denies back pain, joint pain, or myalgia. NEUROLOGIC: Denies headache, numbness, dizziness, or weakness. PSYCHIATRIC: Denies anxiety or depression. [facility] Past Medical History Medical History Anxiety Depression H/O cardiac pacemaker Hemorrhoid Postural orthostatic tachycardia syndrome Seizure Sick sinus syndrome UTI (urinary tract infection) Surgical History Surgical History S/P cardiac pacemaker procedure Family History Family History Mother Family history non-contributory Social History Social History Smoking status: Never smoker Substance use: never Living arrangements: with family Gender identity (if verbalized by the patient): Female Sexual Orientation (if Verbalized by the Patient): Straight or Heterosexual Spiritual care concerns: No Exam Narrative: GENERAL: Well-appearing, well-nourished, and in no acute distress. HEAD: Normocephalic, atraumatic. EYES: PERRLA and EOMI. ENT: Nares clear, no rhinorrhea or epistaxis. Mucous membranes moist. Bilateral tonsillar enlargement with white exudate and erythema. Uvula is midline. Bilateral TMs pearly bradley nonbulging NECK: Supple. No adenopathy or masses. No carotid bruits or JVD CHEST: Clear to auscultation. No respiratory distress. No wheezes rales or rhonchi HEART: Regular rate and rhythm. No murmur heard. Normal peripheral pulses. ABDOMEN: Soft, nontender, nondistended, normal active bowel
== END 2022-07-11 12:06 | disposition home or self-care (01) ==
PROVIDERS: Emergency Provider Nurse Practitioner; PCP Internal Medicine
DX: J02.9 Acute pharyngitis, unspecified (principal); Z20.822 Contact with and (suspected) exposure to COVID-19; Z20.818 Contact with and (suspected) exposure to other bacterial communicable diseases; Z95.0 Presence of cardiac pacemaker; F41.9 Anxiety disorder, unspecified; F32.A Depression, unspecified
CPT/HCPCS: 87081; 87426; 87804; 87880; 99213; C9803; G0463

== ENCOUNTER 2023-01-18 09:06 | Emergency (ER) | payer OTHER, SELFPAY ==
[2023-01-18 09:21] VITALS: BP 121/92; PULSE 80; RESP 16; TEMP 36.4; O2SAT 99
--- NOTE | 2023-01-18 09:26 | ED.EAR ---
HPI - Ear Problem General Chief complaint: Ear Stated complaint: Right Ear Pain Source: patient and RN notes reviewed Mode of arrival: ambulatory History of Present Illness HPI Narrative: Patient is a 32-year-old female coming in the right ear pain and states pain started 2-3 days ago and continues to worsen. She denies drainage from the ear. Denies decreased hearing. Denies recent fevers. States that she has issues with ears sinuses with nasal congestion and drainage, but denies cough, chest pain, shortness breath. Denies sore throat. Related Data Home Medications Medication Instructions Recorded Confirmed bupropion HCl 100 mg tablet 300 mg PO DAILY 06/15/21 01/18/23 trazodone 100 mg tablet 100 mg PO HS 02/28/22 01/18/23 budesonide-formoterol HFA 160 2 puff inhalation Q12H 07/11/22 01/18/23 mcg-4.5 mcg/actuation aerosol inhaler (Symbicort) metoprolol succinate 25 mg 25 mg PO DAILY 07/11/22 01/18/23 tablet,extended release 24 hr albuterol sulfate 90 mcg/actuation 2 puff inhalation QID PRN 01/18/23 01/18/23 aerosol inhaler Shortness Of Breath Or Wheezing aripiprazole 5 mg tablet 5 mg PO DAILY 01/18/23 01/18/23 flecainide 100 mg tablet 100 mg PO Q12H 01/18/23 01/18/23 hydroxyzine HCl 10 mg tablet 10 mg PO QHS PRN Sleep 01/18/23 01/18/23 magnesium oxide 400 mg PO BID 01/18/23 01/18/23 triamcinolone acetonide 0.1 % 1 applic topical BID 01/18/23 01/18/23 topical ointment Allergies Allergy/AdvReac Type Severity Reaction Status Date / Time adhesive tape Allergy Mild Rash Verified 01/18/23 09:21 lorazepam Allergy Mild Itching Verified 01/18/23 09:21 paroxetine Allergy Mild Rash Verified 01/18/23 09:21 carbamazepine Allergy Unknown Unknown Verified 01/18/23 09:21 ceftriaxone [From Rocephin] Allergy Unknown Unknown Verified 01/18/23 09:22 lacosamide Allergy Unknown Rash Verified 01/18/23 09:21 Review of Systems Review of Systems: CONSTITUTIONAL: Denies fever, chills, or sweats. EYES: Denies visual changes, redness, or discharge. ENT: Right ear pain. No drainage. Denies sore throat CARDIOVASCULAR: Denies chest pain, palpitations, or edema. RESPIRATORY: Denies cough or dyspnea. GASTROINTESTINAL: Denies abdominal pain, nausea, vomiting, or diarrhea. GENITOURINARY: Denies dysuria or hematuria. SKIN: Denies rash or itching. MUSCULOSKELETAL: Denies back pain, joint pain, or myalgia. NEUROLOGIC: Denies headache, numbness, or weakness. Pertinent positives per HPI. [facility] Past Medical History Medical History (Updated 01/18/23 @ 09:32 by Sushma Hess APRN) Anxiety Depression H/O cardiac pacemaker Hemorrhoid Postural orthostatic tachycardia syndrome Seizure Sick sinus syndrome UTI (urinary tract infection) Surgical History Surgical History S/P cardiac pacemaker procedure Family History Family History Mother Family history non-contributory Social History Social History Smoking status: Never smoker Substance use: never Living arrangements: with family Gender identity (if verbalized by the patient): Female Sexual Orientation (if Verbalized by the Patient): Straight or Heterosexual Spiritual care concerns: No Comments At the time of my signature, I reviewed and agree with the nursing past medical, surgical, social, and family history. There is no relevant family history pertinent to the patient complaint. Exam Narrative: GENERAL: This is a well-nourished, well-developed patient, in no apparent distress. HEAD: normocephalic, atraumatic. EYES: PERRL. Sclera clear/white. Vision is grossly intact. EARS: External ears normal, auditory canals clear and without drainage, Right erythematous and bulging TM without perforation. Hearing grossly intact. NOSE: External nose normal with no obvious nasal discharge, nares without red
[2023-01-18 09:28] VITALS: BP 121/92; PULSE 80; RESP 16; TEMP 36.4; O2SAT 99
== END 2023-01-18 09:35 | disposition home or self-care (01) ==
PROVIDERS: Emergency Provider Nurse Practitioner Family; PCP Internal Medicine
DX: H66.91 Otitis media, unspecified, right ear (principal); F41.9 Anxiety disorder, unspecified; F32.A Depression, unspecified; Z95.0 Presence of cardiac pacemaker; I49.5 Sick sinus syndrome
CPT/HCPCS: 99213; G0463

== ENCOUNTER 2023-04-01 15:02 | Emergency (ER) | payer OTHER, SELFPAY ==
--- NOTE | 2023-04-01 15:04 | ED.FEMALEGU ---
HPI - Female Genitourinary General Chief complaint: Urogenital-Female Stated complaint: abd pain,back pain,itching and painful urination Time Seen by Provider: 04/01/23 15:04 Source: patient Mode of arrival: ambulatory Limitations: no limitations History of Present Illness HPI Narrative: Lizeth is a 32-year-old female patient presenting to the clinic today with complaints of abdominal discomfort, back pain, vaginal itching, and painful urination times 3-4 days. She reports no fever or chills. She denies any concern for any sexually transmitted infections. She has been with 1 partner for the last 6 years and they have a monogamous relationship. She denies any vaginal discharge or abnormal vaginal odor. Related Data Home Medications Medication Instructions Recorded Confirmed bupropion HCl 100 mg tablet 300 mg PO DAILY 06/15/21 01/18/23 trazodone 100 mg tablet 100 mg PO HS 02/28/22 01/18/23 budesonide-formoterol HFA 160 2 puff inhalation Q12H 07/11/22 01/18/23 mcg-4.5 mcg/actuation aerosol inhaler (Symbicort) metoprolol succinate 25 mg 25 mg PO DAILY 07/11/22 01/18/23 tablet,extended release 24 hr albuterol sulfate 90 mcg/actuation 2 puff inhalation QID PRN 01/18/23 01/18/23 aerosol inhaler Shortness Of Breath Or Wheezing aripiprazole 5 mg tablet 5 mg PO DAILY 01/18/23 01/18/23 flecainide 100 mg tablet 100 mg PO Q12H 01/18/23 01/18/23 hydroxyzine HCl 10 mg tablet 10 mg PO QHS PRN Sleep 01/18/23 01/18/23 magnesium oxide 400 mg PO BID 01/18/23 01/18/23 triamcinolone acetonide 0.1 % 1 applic topical BID 01/18/23 01/18/23 topical ointment Allergies Allergy/AdvReac Type Severity Reaction Status Date / Time adhesive tape Allergy Mild Rash Verified 01/18/23 09:21 lorazepam Allergy Mild Itching Verified 01/18/23 09:21 paroxetine Allergy Mild Rash Verified 01/18/23 09:21 carbamazepine Allergy Unknown Unknown Verified 01/18/23 09:21 ceftriaxone [From Rocephin] Allergy Unknown Unknown Verified 01/18/23 09:22 lacosamide Allergy Unknown Rash Verified 01/18/23 09:21 Review of Systems Review of Systems: Pertinent positives per HPI. Patient denies any fever, chills, rash, headache, visual changes, dizziness, cough, shortness of breath, chest pain, palpitations, nausea, vomiting, diarrhea, constipation. PMFSH Past Medical History Medical History (Updated 04/01/23 @ 15:58 by Michelet Catherine APRN) Anxiety Depression H/O cardiac pacemaker Hemorrhoid Postural orthostatic tachycardia syndrome Seizure Sick sinus syndrome UTI (urinary tract infection) Surgical History Surgical History S/P cardiac pacemaker procedure Family History Family History Mother Family history non-contributory Social History Social History Smoking status: Never smoker Substance use: never Living arrangements: with family Gender identity (if verbalized by the patient): Female Sexual Orientation (if Verbalized by the Patient): Straight or Heterosexual Spiritual care concerns: No Comments At the time of my signature, I reviewed and agree with the nursing past medical, surgical, social, and family history. There is no relevant family history pertinent to the patient complaint. Exam Narrative: General: Well-developed, well nourished, in no apparent distress Head: Normocephalic, atraumatic. Cardio: Regular rate and rhythm, s1 and s2 normal, no murmur appreciated. Resp: Clear to auscultation bilaterally, no rhonchi, rales, wheezing or rubs. Abdomen: Soft, pliable, bowel sounds present in all quadrants, non-tender to palpation, no CVAT tenderness. : Pelvic exam performed with (Phil ENGLAND) at bedside. Verbal consent obtained from patient. Normal external female genitalia without lesions or masses, Urinary meatus: patent without dis
[2023-04-01 15:06] VITALS: BP 119/64; PULSE 76; RESP 20; TEMP 36.6; O2SAT 98
== END 2023-04-01 16:05 | disposition home or self-care (01) ==
PROVIDERS: Emergency Provider Nurse Practitioner Family; PCP Internal Medicine
DX: L29.2 Pruritus vulvae (principal); R30.0 Dysuria; F41.9 Anxiety disorder, unspecified; F32.A Depression, unspecified; Z95.0 Presence of cardiac pacemaker
CPT/HCPCS: 81003; 81025; 87070; 87491; 87591; 87661; 99214; G0463

== ENCOUNTER 2023-08-17 09:14 | Emergency (ER) | payer OTHER, SELFPAY ==
[2023-08-17 09:30] VITALS: BP 122/64; PULSE 73; RESP 16; TEMP 36.4; O2SAT 100
--- NOTE | 2023-08-17 09:51 | ED.URI ---
HPI - URI/Sore Throat General Chief Complaint: Eye Problems Stated Complaint: Eye Problem Time Seen by Provider: 08/17/23 09:35 Source: patient Mode of arrival: ambulatory Limitations: no limitations History of Present Illness HPI Narrative: Lizeth is a 33-year-old female patient presenting to the clinic today with complaints of possible left conjunctivitis and a possible sinus infection. She reports she has had sinus congestion and nasal drainage x2 months. Reports that she is blowing out green and nasal drainage with a lot of sinus pressure. States she woke up this morning and her eye was matted shut with low yellow mucopurulent discharge. She states the eye is very itchy. MD elicited complaint: rhinorrhea, nasal congestion, sinus pain and other (Conjunctivitis) Related Data Home Medications Medication Instructions Recorded Confirmed bupropion HCl 100 mg tablet 300 mg PO DAILY 06/15/21 08/17/23 trazodone 100 mg tablet 100 mg PO HS 02/28/22 08/17/23 budesonide-formoterol HFA 160 2 puff inhalation Q12H 07/11/22 08/17/23 mcg-4.5 mcg/actuation aerosol inhaler (Symbicort) metoprolol succinate 25 mg 25 mg PO DAILY 07/11/22 08/17/23 tablet,extended release 24 hr albuterol sulfate 90 mcg/actuation 2 puff inhalation QID PRN 01/18/23 08/17/23 aerosol inhaler Shortness Of Breath Or Wheezing aripiprazole 5 mg tablet 5 mg PO DAILY 01/18/23 08/17/23 flecainide 100 mg tablet 100 mg PO Q12H 01/18/23 08/17/23 magnesium oxide 400 mg PO BID 01/18/23 08/17/23 Allergies Allergy/AdvReac Type Severity Reaction Status Date / Time adhesive tape Allergy Mild Rash Verified 01/18/23 09:21 lorazepam Allergy Mild Itching Verified 01/18/23 09:21 paroxetine Allergy Mild Rash Verified 01/18/23 09:21 carbamazepine Allergy Unknown Unknown Verified 01/18/23 09:21 ceftriaxone [From Rocephin] Allergy Unknown Unknown Verified 01/18/23 09:22 lacosamide Allergy Unknown Rash Verified 01/18/23 09:21 Review of Systems Review of Systems: Pertinent positives per HPI. Patient denies any fever, chills, rash, headache, visual changes, dizziness, cough, shortness of breath, chest pain, palpitations, nausea, vomiting, diarrhea, constipation, abdominal pain, or any urinary issues. [facility] Past Medical History Medical History Anxiety Depression H/O cardiac pacemaker Hemorrhoid Postural orthostatic tachycardia syndrome Seizure Sick sinus syndrome UTI (urinary tract infection) Surgical History Surgical History S/P cardiac pacemaker procedure Family History Family History Mother Family history non-contributory Social History Social History Smoking status: Never smoker Substance use: never Living arrangements: with family Gender identity (if verbalized by the patient): Female Sexual Orientation (if Verbalized by the Patient): Straight or Heterosexual Spiritual care concerns: No Comments At the time of my signature, I reviewed and agree with the nursing past medical, surgical, social, and family history. There is no relevant family history pertinent to the patient complaint. Exam Narrative: General: Well-developed, well nourished, in no apparent distress Head: Normocephalic, atraumatic Eyes: Pupils equally round and reactive to light bilaterally, EOM intact, right sclera and conjunctive clear, no discharge, lids normal, left sclera and conjunctiva injected with yellow mucopurulent discharge and mild lids swelling Ears: TMs intact and clear, ear canals clear, no drainage, grossly hearing normal. Nose: Nares patent, green nasal discharge, severe inflammation, maxillary and frontal sinus tenderness. Mouth: Oral pharynx without lesions or masses, good dentition, MMM. Postnasal drip Neck: Supple
== END 2023-08-17 10:04 | disposition home or self-care (01) ==
PROVIDERS: Emergency Provider Nurse Practitioner Family; PCP Internal Medicine
DX: J01.90 Acute sinusitis, unspecified (principal); H10.9 Unspecified conjunctivitis; Z95.5 Presence of coronary angioplasty implant and graft; I49.5 Sick sinus syndrome; F41.9 Anxiety disorder, unspecified; F32.A Depression, unspecified
CPT/HCPCS: 99213; G0463

== ENCOUNTER 2024-04-01 16:15 | Emergency (ER) | payer OTHER, SELFPAY ==
[2024-04-01 16:20] VITALS: BP 101/44; PULSE 71; RESP 16; TEMP 36.4; O2SAT 99
--- NOTE | 2024-04-01 17:27 | ED.GENADULT ---
HPI - General Adult General Chief complaint: Skin/Abscess/Foreign Body Stated complaint: pain from lump under right armpit Source: patient Mode of arrival: ambulatory Limitations: no limitations History of Present Illness HPI narrative: Patient presents for evaluation of painful lesion to right axillary region for last 4 days. She denies any fever, chills, nausea, vomiting, redness, drainage from the area, breast masses or tenderness. No family history of breast cancer. She has not tried any therapies to assist with her symptoms. She rates her pain 6/10 severity. She does not provide me with a descriptive quality to the pain. Related Data Home Medications Medication Instructions Recorded Confirmed bupropion HCl 100 mg tablet 300 mg PO DAILY 06/15/21 08/17/23 trazodone 100 mg tablet 100 mg PO HS 02/28/22 08/17/23 budesonide-formoterol HFA 160 2 puff inhalation Q12H 07/11/22 08/17/23 mcg-4.5 mcg/actuation aerosol inhaler (Symbicort) metoprolol succinate 25 mg 25 mg PO DAILY 07/11/22 08/17/23 tablet,extended release 24 hr albuterol sulfate 90 mcg/actuation 2 puff inhalation QID PRN 01/18/23 08/17/23 aerosol inhaler Shortness Of Breath Or Wheezing aripiprazole 5 mg tablet 5 mg PO DAILY 01/18/23 08/17/23 flecainide 100 mg tablet 100 mg PO Q12H 01/18/23 08/17/23 magnesium oxide 400 mg PO BID 01/18/23 08/17/23 Allergies Allergy/AdvReac Type Severity Reaction Status Date / Time adhesive tape Allergy Mild Rash Verified 01/18/23 09:21 lorazepam Allergy Mild Itching Verified 01/18/23 09:21 paroxetine Allergy Mild Rash Verified 01/18/23 09:21 carbamazepine Allergy Unknown Unknown Verified 01/18/23 09:21 ceftriaxone [From Rocephin] Allergy Unknown Unknown Verified 01/18/23 09:22 lacosamide Allergy Unknown Rash Verified 01/18/23 09:21 Review of Systems Review of Systems: CONSTITUTIONAL: Denies fever, chills, or sweats. EYES: Denies visual changes, redness, or discharge. ENT: Denies rhinorrhea, congestion, sore throat, or otalgia. CARDIOVASCULAR: Denies chest pain, palpitations, or edema. RESPIRATORY: Denies cough or dyspnea. GASTROINTESTINAL: Denies abdominal pain, nausea, vomiting, or diarrhea. GENITOURINARY: Denies dysuria or hematuria. SKIN: Reports painful lesion to right axillary region. Denies any redness or drainage MUSCULOSKELETAL: Denies back pain, joint pain, or myalgia. NEUROLOGIC: Denies headache, numbness, dizziness, or weakness. PSYCHIATRIC: Denies anxiety or depression. [facility] Past Medical History Medical History Anxiety Depression H/O cardiac pacemaker Hemorrhoid Postural orthostatic tachycardia syndrome Seizure Sick sinus syndrome UTI (urinary tract infection) Surgical History Surgical History S/P cardiac pacemaker procedure Family History Family History Mother Family history non-contributory Social History Social History Smoking status: Never smoker Substance use: never Living arrangements: with family Gender identity (if verbalized by the patient): Female Sexual Orientation (if Verbalized by the Patient): Straight or Heterosexual Spiritual care concerns: No Exam Narrative: GENERAL: Well-appearing, well-nourished, and in no acute distress. HEAD: Normocephalic, atraumatic. EYES: PERRLA and EOMI. ENT: Nares clear, no rhinorrhea or epistaxis. Mucous membranes moist. Oropharynx without tonsillar hypertrophy exudate or other lesions. Bilateral TMs pearly bradley nonbulging NECK: Supple. No adenopathy or masses. No carotid bruits or JVD CHEST: Clear to auscultation. No respiratory distress. No wheezes rales or rhonchi BREAST: Exam performed incompetent of Vianney hawley RN: No obvious breast masses palpated HEART: Regular rate
== END 2024-04-01 17:30 | disposition home or self-care (01) ==
PROVIDERS: Emergency Provider Nurse Practitioner
DX: R59.0 Localized enlarged lymph nodes (principal); F41.9 Anxiety disorder, unspecified; F32.A Depression, unspecified; Z95.0 Presence of cardiac pacemaker; I49.5 Sick sinus syndrome
CPT/HCPCS: 99213; G0463

== ENCOUNTER 2024-04-15 12:20 | Emergency (ER) | payer OTHER, SELFPAY ==
--- NOTE | ~2024-04-15 | XR_ITS ---
EXAMINATION: XR chest 2V DATE: 04/15/2024 13:17 INDICATION: Syncope. TECHNIQUE: Frontal and lateral views of the chest were obtained. COMPARISON: Chest single view 07/16/2020 FINDINGS: The lung volumes are small. There is no pneumonia, pleural effusion, or pneumothorax. The h eart size is normal. There is a right chest wall pacer with leads in the right atrium and right ventr icle. IMPRESSION: 1. No acute cardiopulmonary disease. Reviewed, dictated and finalized at location A.
--- NOTE | ~2024-04-15 | CT_ITS ---
EXAMINATION: CT brain wo con DATE: 04/15/2024 13:26 INDICATION: Syncope. Head injury. TECHNIQUE: Computed tomography (CT) of the head was performed without intravenous contrast. The mA wa s adjusted according to patient size. Iterative reconstruction technique was employed. The dose-lengt h product was 605.33 mGy-cm. COMPARISON: Head CT 12/15/2017 FINDINGS: There is no intracranial hemorrhage, acute infarction, or abnormal intracranial mass lesion . The ventricles are normal in size. The orbits are normal. There is mild mucosal thickening in the p aranasal sinuses. The mastoid air cells are normal. IMPRESSION: 1. Normal brain. Reviewed, dictated and finalized at location A. IMPRESSION: 1. Normal brain.
[2024-04-15 12:20] VITALS: BP 126/80; PULSE 84; RESP 14; O2SAT 100
--- NOTE | 2024-04-15 12:21 | ECG_ITS ---
Test Date: 2024-04-15 12:22:02 Measurements Intervals [place] Rate: 63 P: 42 LA: 142 QRS: -6 QRSD: 160 T: -9 QT: 441 QTc: 455 Interpretive Statements SINUS RHYTHM RIGHT BUNDLE BRANCH BLOCK ABNORMAL ECG No previous ECG available for comparison Electronically Signed On 04-15-2024 12:59:49 CDT by Paul Casey D.O.
[2024-04-15 12:22] VITALS: BP 113/53; PULSE 71; RESP 16; TEMP 36.5; O2SAT 99
[2024-04-15 12:52] LABS: Basophils Percent Auto 0.4 % (0.2-1.2); Eosinophils Absolute Auto 0.4 K/mm3 (0-0.3); Eosinophils Percent Auto 3.8 % (0-4.4); Hematocrit 41.9 % (37.0-47.0); Immature Granulocyte Absolute 0.03 K/mm3 (0.00-0.031); Immature Granulocyte Percent A 0.3 % (0-0.5); Lymphocytes Absolute Auto 2.76 K/mm3 (0.9-3.2); Lymphocytes Percent Auto 30.1 % (18.3-44.2); Mean Corpuscular Hemoglobin 27.7 pg (26-34); Mean Corpuscular Volume 89.3 fl (80-100); Mean Platelet Volume 10.6 fl (7.4-10.4); Monocytes Absolute Auto 0.4 K/mm3 (0.1-0.6); Monocytes Percent Auto 4.1 % (2.6-8.5); Neutrophils Absolute Auto 5.6 K/mm3 (1.3-6.7); Neutrophils Percent Auto 61.3 % (45.5-73.1); Platelet Count Result 303 k/mm3 (150-375); Red Blood Count 4.69 M/mm3 (4.2-5.4); Red Cell Distribution Width 14.5 % (11.5-14.5); White Blood Count 9.2 K/mm3 (4.5-10.0)
[2024-04-15 13:01] LABS: Alanine Aminotransferase 18 U/L (6-35); Albumin Level 4.6 g/dL (3.5-5.1); Alkaline Phosphatase 103 U/L (38-126); Anion Gap 11 mmol/L (4-12); Aspartate Amino Transferase 23 U/L (14-36); Bilirubin,Total 0.4 mg/dL (0.2-1.3); Blood Urea Nitrogen 15 mg/dL (7-17); Calcium 9.1 mg/dL (8.4-10.2); Carbon Dioxide 25 mmol/L (22-30); Chloride 102 mmol/L (98-107); Estimated CRCL calculation 90 ml/min; Estimated Glomerular Filt Rate 58; Glucose 88 mg/dL (65-110); Potassium 4.2 mmol/L (3.4-5.0); Sodium 138 mmol/L (137-145)
[2024-04-15] MEDS: SODIUM CHLORIDE 0.9% IV 2,000 ML 999 ML IV CONT (13:30)
[2024-04-15] MEDS: ONDANSETRON INJ 4 MG/2 ML VIAL IV PUSH (13:30)
[2024-04-15 14:15] VITALS: BP 103/60; PULSE 95; RESP 18; O2SAT 96
--- NOTE | 2024-04-15 15:30 | ED.GENADULT ---
HPI - General Adult General Chief complaint: Syncope Stated complaint: syncope Time Seen by Provider: 04/15/24 12:36 History of Present Illness HPI narrative: This is a 33-year-old female with a history of sick sinus syndrome with pacemaker and POTS presenting after a syncopal episode. Patient was in the waiting room our hospital as her was about to go to surgery. She then stood up became lightheaded and lost consciousness. She then quickly returned to her baseline health. Patient has fainted in the past. She is unsure if she struck her head but does have some pain to the back of her skull and has a headache. Patient has not eaten today. No other complaints at this time. Related Data Home Medications Medication Instructions Recorded Confirmed bupropion HCl 100 mg tablet 300 mg PO DAILY 06/15/21 08/17/23 trazodone 100 mg tablet 100 mg PO HS 02/28/22 08/17/23 budesonide-formoterol HFA 160 2 puff inhalation Q12H 07/11/22 08/17/23 mcg-4.5 mcg/actuation aerosol inhaler (Symbicort) metoprolol succinate 25 mg 25 mg PO DAILY 07/11/22 08/17/23 tablet,extended release 24 hr albuterol sulfate 90 mcg/actuation 2 puff inhalation QID PRN 01/18/23 08/17/23 aerosol inhaler Shortness Of Breath Or Wheezing aripiprazole 5 mg tablet 5 mg PO DAILY 01/18/23 08/17/23 flecainide 100 mg tablet 100 mg PO Q12H 01/18/23 08/17/23 magnesium oxide 400 mg PO BID 01/18/23 08/17/23 Allergies Allergy/AdvReac Type Severity Reaction Status Date / Time adhesive tape Allergy Mild Rash Verified 04/15/24 12:50 lorazepam Allergy Mild Itching Verified 04/15/24 12:50 paroxetine Allergy Mild Rash Verified 04/15/24 12:50 carbamazepine Allergy Unknown Unknown Verified 04/15/24 12:50 ceftriaxone [From Rocephin] Allergy Unknown Unknown Verified 04/15/24 12:50 lacosamide Allergy Unknown Rash Verified 04/15/24 12:50 [facility] Past Medical History Medical History (Updated 04/15/24 @ 15:35 by Damon Schultz MD) Anxiety Depression H/O cardiac pacemaker Hemorrhoid Postural orthostatic tachycardia syndrome Seizure Sick sinus syndrome UTI (urinary tract infection) Surgical History Surgical History S/P cardiac pacemaker procedure Family History Family History Mother Family history non-contributory Social History Social History Smoking status: Never smoker Substance use: never Living arrangements: with family Gender identity (if verbalized by the patient): Female Sexual Orientation (if Verbalized by the Patient): Straight or Heterosexual Spiritual care concerns: No Exam Narrative: APPEARANCE: No apparent distress. Head: atraumatic. EYES: EOMI, NOSE: Atraumatic NECK: Trachea midline RESPIRATORY: No increased rate of breathing clear auscultation CARDIOVASCULAR: RRR, no peripheral edema ABDOMINAL: Non-distended nontender MUSCULOSKELETAl: No obvious deformities NEURO: Alert. Moving 4/4 extremities SKIN:: Warm, dry. Normal color PSYCHIATRIC: Normal affect Course Vital Signs Vital signs: Vital Signs Temperature 97.7 F 04/15/24 12:22 Pulse Rate 71 04/15/24 12:22 Respiratory Rate 16 04/15/24 12:22 Blood Pressure 113/53 L 04/15/24 12:22 Pulse Oximetry 99 04/15/24 12:22 Oxygen Delivery Room Air 04/15/24 12:22 Temperature 97.7 F 04/15/24 12:22 Pulse Rate 95 04/15/24 14:15 Respiratory Rate 18 04/15/24 14:15 Blood Pressure 103/60 04/15/24 14:15 Pulse Oximetry 96 04/15/24 14:15 Oxygen Delivery Room Air 04/15/24 12:22 Medical Decision Making MDM Narrative Medical decision making narrative: -Course: 33-year-old female sick sinus syndrome and pacemaker and [place] presenting after a syncopal episode in the hospital. Workup reassuring. Laboratory studies unremarkable. EKG without concerning fin
[2024-04-15 15:44] VITALS: BP 120/70; PULSE 78; RESP 16; TEMP 36.6; O2SAT 99
[2024-04-15 15:45] VITALS: BP 136/74; PULSE 80; RESP 16; O2SAT 99
== END 2024-04-15 15:45 | disposition home or self-care (01) ==
PROVIDERS: Emergency Provider Emergency Medicine
DX: R55 Syncope and collapse (principal); I49.5 Sick sinus syndrome; G90.A Postural orthostatic tachycardia syndrome [POTS]; F41.9 Anxiety disorder, unspecified; F32.A Depression, unspecified; Z95.0 Presence of cardiac pacemaker; Z87.440 Personal history of urinary (tract) infections; Z79.899 Other long term (current) drug therapy; I45.10 Unspecified right bundle-branch block
CPT/HCPCS: 36415; 70450; 71046; 80053; 85025; 93005; 96361; 96374; 99284; J2405; J7030

== ENCOUNTER 2024-05-02 10:47 | Emergency (ER) | payer OTHER, SELFPAY ==
[2024-05-02 10:57] VITALS: BP 135/65; PULSE 77; RESP 24; TEMP 36.4; O2SAT 98
--- NOTE | 2024-05-02 11:10 | ED.GENADULT ---
HPI - General Adult General Chief complaint: Unspecified Stated complaint: Hemorrhoids Time Seen by Provider: 05/02/24 11:10 Source: patient, RN notes reviewed and old records reviewed Mode of arrival: ambulatory Limitations: no limitations History of Present Illness HPI narrative: 33-year-old female presents to the [facility] with concerns for hemorrhoids. Patient reports discomfort, reports small amount of blood when she has a bowel movement and wipes. Denies straining. Patient reports history of hemorrhoids. Has tried [id number] products with no relief. States that she tried making an appointment with her primary care provider but is not for 2 weeks Related Data Home Medications Medication Instructions Recorded Confirmed bupropion HCl 100 mg tablet 300 mg PO DAILY 06/15/21 05/02/24 budesonide-formoterol HFA 160 2 puff inhalation Q12H 07/11/22 05/02/24 mcg-4.5 mcg/actuation aerosol inhaler (Symbicort) metoprolol succinate 25 mg 25 mg PO DAILY 07/11/22 05/02/24 tablet,extended release 24 hr albuterol sulfate 90 mcg/actuation 2 puff inhalation QID PRN 01/18/23 05/02/24 aerosol inhaler Shortness Of Breath Or Wheezing flecainide 100 mg tablet 100 mg PO Q12H 01/18/23 05/02/24 magnesium oxide 400 mg PO BID 01/18/23 05/02/24 buspirone 10 mg tablet 10 mg PO BID 05/02/24 05/02/24 clobetasol 0.05 % scalp solution See Rx Instructions .Route .COMPLEX 05/02/24 05/02/24 escitalopram oxalate 10 mg tablet 10 mg PO DAILY 05/02/24 05/02/24 topiramate 50 mg tablet 50 mg PO DAILY 05/02/24 05/02/24 Allergies Allergy/AdvReac Type Severity Reaction Status Date / Time adhesive tape Allergy Mild Rash Verified 05/02/24 11:21 lorazepam Allergy Mild Itching Verified 05/02/24 11:21 paroxetine Allergy Mild Rash Verified 05/02/24 11:21 carbamazepine Allergy Unknown Unknown Verified 05/02/24 11:21 ceftriaxone [From Rocephin] Allergy Unknown Unknown Verified 05/02/24 11:21 lacosamide Allergy Unknown Rash Verified 05/02/24 11:21 Review of Systems Review of Systems: All systems reviewed & are unremarkable except as noted in HPI and below Constitutional: Constitutional: Reports no additional constitutional complaints Eyes: Eyes: Reports no additional eye complaints ENT: Reports system reviewed and no additional complaints, except as documented Cardiovascular: Cardiovascular: Reports no additional cardiovascular complaints, Denies chest pain and Denies dyspnea Respiratory: Respiratory: Reports no additional respiratory complaints, Denies chest congestion, Denies cough and Denies dyspnea Gastrointestinal: Gastrointestinal: Reports as per HPI, Denies abdominal pain, Denies nausea and Denies vomiting Musculoskeletal: Musculoskeletal: Reports no additional musculoskeletal complaints Integumentary/Breasts: Skin/Breast: Reports system reviewed and no additional complaints, except as docu Neurologic: Reports system reviewed and no additional complaints, except as documented Psychiatric: Psychiatric: Reports no additional psychiatric complaints Allergic/Immunologic: Allergic/Immunologic: Reports no additional allergic/immunologic complaints PMFSH Past Medical History Medical History Anxiety Depression H/O cardiac pacemaker Hemorrhoid Postural orthostatic tachycardia syndrome Seizure Sick sinus syndrome UTI (urinary tract infection) Surgical History Surgical History S/P cardiac pacemaker procedure Family History Family History Mother Family history non-contributory Social History Social History Smoking status: Never smoker Substance use: never Living arrangements: with family Gender identity (if verbalized by the patient): Female Sexual Orientation (if Verbalized by the Patient): Straight or Heterosex
== END 2024-05-02 11:30 | disposition home or self-care (01) ==
PROVIDERS: Emergency Provider Nurse Practitioner
DX: K64.9 Unspecified hemorrhoids (principal); F41.9 Anxiety disorder, unspecified; F32.A Depression, unspecified; G40.909 Epilepsy, unspecified, not intractable, without status epilepticus; I49.5 Sick sinus syndrome; Z95.0 Presence of cardiac pacemaker
CPT/HCPCS: 99213; G0463

== ENCOUNTER 2024-07-08 13:25 | Emergency (ER) | payer OTHER, SELFPAY ==
[2024-07-08 13:29] VITALS: BP 99/74; PULSE 81; RESP 20; TEMP 36.7; O2SAT 99
--- NOTE | 2024-07-08 14:21 | ED.URI ---
HPI - URI/Sore Throat General Chief Complaint: Upper Respiratory Infection Stated Complaint: Cough/Shortness of Breath/Tightness in Chest Time Seen by Provider: 07/08/24 14:00 Source: patient, RN notes reviewed and old records reviewed Mode of arrival: ambulatory Limitations: no limitations History of Present Illness HPI Narrative: 33 year old female presents to [facility] care with complaints of acute cough which is at times productive for the past 7-10 days with no known fevers, has tightness in chest and nasal drainage and headache discomfort. Patient reports that initially she thought she had a cold but now wonders if she has walking pneumonia .Patient reports that she has been taking Mucinex and has been using her inhalers has ot taken any cough medication. Patient reports that she does have history of asthma. MD elicited complaint: cough, rhinorrhea, nasal congestion and other (tightness in chest and sinus drainage and headache) Pertinent past history: asthma Onset (ago): day(s) (7-10 days) Severity: moderate Able to tolerate fluids by mouth: Yes Treatments prior to arrival: other (Mucinex and inhalers) Related Data Home Medications Medication Instructions Recorded Confirmed bupropion HCl 100 mg tablet 300 mg PO DAILY 06/15/21 05/02/24 budesonide-formoterol HFA 160 2 puff inhalation Q12H 07/11/22 05/02/24 mcg-4.5 mcg/actuation aerosol inhaler (Symbicort) metoprolol succinate 25 mg 25 mg PO DAILY 07/11/22 05/02/24 tablet,extended release 24 hr albuterol sulfate 90 mcg/actuation 2 puff inhalation QID PRN 01/18/23 05/02/24 aerosol inhaler Shortness Of Breath Or Wheezing flecainide 100 mg tablet 100 mg PO Q12H 01/18/23 05/02/24 magnesium oxide 400 mg PO BID 01/18/23 05/02/24 buspirone 10 mg tablet 10 mg PO BID 05/02/24 05/02/24 clobetasol 0.05 % scalp solution See Rx Instructions .Route .COMPLEX 05/02/24 05/02/24 escitalopram oxalate 10 mg tablet 10 mg PO DAILY 05/02/24 05/02/24 topiramate 50 mg tablet 50 mg PO DAILY 05/02/24 05/02/24 Allergies Allergy/AdvReac Type Severity Reaction Status Date / Time adhesive tape Allergy Mild Rash Verified 05/02/24 11:21 lorazepam Allergy Mild Itching Verified 05/02/24 11:21 paroxetine Allergy Mild Rash Verified 05/02/24 11:21 carbamazepine Allergy Unknown Unknown Verified 05/02/24 11:21 ceftriaxone [From Rocephin] Allergy Unknown Unknown Verified 05/02/24 11:21 lacosamide Allergy Unknown Rash Verified 05/02/24 11:21 Review of Systems Review of Systems: CONSTITUTIONAL: Reports malaise, no chills, sweats, or fever. EYES: Denies visual changes, redness, or discharge. ENT: Reports rhinorrhea, congestion, sinus pain,no otalgia and no sore throat. CARDIOVASCULAR: Denies chest pain, palpitations, or edema. RESPIRATORY: Reports cough at time is productive ? Denies dyspnea.states some tightness to chest GASTROINTESTINAL: Denies abdominal pain, nausea, vomiting, diarrhea SKIN: Denies rash or itching. MUSCULOSKELETAL: Denies myalgia. NEUROLOGIC: Denies headache. All systems reviewed & are unremarkable except as noted in HPI and below PMFSH Past Medical History Medical History Anxiety Depression H/O cardiac pacemaker Hemorrhoid LILI (obstructive sleep apnea) Postural orthostatic tachycardia syndrome Seizure Sick sinus syndrome UTI (urinary tract infection) Surgical History Surgical History H/O tubal ligation S/P cardiac pacemaker procedure Family History Family History Mother Family history non-contributory Social History Social History Smoking status: Never smoker Substance use: never Living arrangements: with family Gender identity (if verbalized by the patient): Female Sexual Orientation (if Verbalized by the Patient): Straig
== END 2024-07-08 14:42 | disposition home or self-care (01) ==
PROVIDERS: Emergency Provider Registered Nurse
DX: J45.901 Unspecified asthma with (acute) exacerbation (principal); F41.9 Anxiety disorder, unspecified; F32.A Depression, unspecified; J45.909 Unspecified asthma, uncomplicated; Z95.0 Presence of cardiac pacemaker
CPT/HCPCS: 99213; G0463

== ENCOUNTER 2025-01-30 09:09 | Emergency (ER) | payer OTHER, SELFPAY ==
[2025-01-30 09:20] VITALS: BP 135/63; PULSE 70; RESP 16; TEMP 36.1; O2SAT 97
--- OUTSIDE RECORDS SUMMARY | 2025-01-30 09:22 | XMS_ITS | Encounter Summary ---
Author Organization [facility] Address [address] [place] [address] Phone Care Team Providers Care Operating Room Rn Name Role Phone Manoj Obregon MD Primary Care Provider Manoj Obregon MD Primary Care Provider [phone] Manoj Obregon MD Primary Care Provider [phone] Manoj Obregon MD Primary Care Provider [phone] Manoj Obregon MD Primary Care Provider [phone] Manoj Obregon MD Primary Care Provider [phone] Linda Santacruz MD Primary Care Provider [phone] Alberta Bernardo PT Unavailable Darlene Obregon MD Primary Care Provider Opal Jensen PT Unavailable Unavailable Delilah Yanez MD Unavailable [phone] Encounter Details Date Type Department Care Team (Late st Contact Info) Description 07/26/2015 Orders Only [facility] Provider, MD Gin [address] [place] [id number] Social History Tobacco Use Types Packs/Day Years Used Date Smoking Tobacco: Never Alcohol Use Standard Drinks/Week Comments No 0 (1 standard drink = 0.6 oz pur e alcohol) Comments Unknown Sex and Gender Information Value Date Recorded Sex Assigned at Not on file Legal 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 Historical Provider [facility] PROCE DURES Final Result * CARDIOLOGY REPORT (07/26/2015) Anatomical Region Laterality Modality Other Narrative 07/26/2015 Ordered by an unspecified provider. us Historical Provider [facility] PROCE DURES Final Result documented in this encounter Visit Diagnoses Not on filedocumented in this encounter Care Teams Operating Room Rn Relationship Specialty Start Date End Date Manoj Obregon MD [address] [place] [address] PCP - General 12/15/16 09/22/18 Manoj Obregon MD [address] [place] [place] [address] PCP - General 10/31/16 12/14/16 Manoj Obregon MD [address] [place] [place] [address] PCP - General 10/29/16 10/30/16 Manoj Obregon MD [address] [place] [address] PCP - General 02/15/16 10/28/16 Manoj Obregon MD [address] [place] [address] PCP - General 12/24/15 02/14/16 Manjo Obregon MD [address] [place] [place] [address] PCP - General 03/02/15 12/23/15 Linda Santacruz MD [address] [place] [address] PCP - General 09/23/18 07/23/19 [place] [address] [place] [address] PCP - General Internal Medicine 04/25/22 [place] [address] [place] [address] Physical Therapist Physical Therapy 01/18/22 Opal Jensen, PT Physical Therapist Physical Therapy 06/16/22 Delilah Yanez MD [address] [place] [address] Consulting Physician Cardiology 06/15/23 documented as of this encounter
--- OUTSIDE RECORDS SUMMARY | 2025-01-30 09:22 | XMS_ITS | Encounter Summary ---
Author Organization [facility] Address [address] [place] [address] Phone Care Team Providers Care Loans Officer Name Role Phone Manoj Obregon MD Primary Care Provider [phone] Manoj Obregon MD Primary Care Provider [phone] Manoj Obregon MD Primary Care Provider Manoj Obregon MD Primary Care Provider [phone] Manoj Obregon MD Primary Care Provider Manoj Obregon MD Primary Care Provider [phone] Linda Santacruz MD Primary Care Provider [phone] Alberta Bernardo PT Unavailable Darlene Obregon MD Primary Care Provider [phone] Opal Jensen PT Unavailable Unavailable Delilah Yanez MD Unavailable [phone] Encounter Details Date Type Department Care Team (Late st Contact Info) Description 11/10/2015 Orders Only [facility] Provider, MD Gin [address] [place] [address] Social History Tobacco Use Types Packs/Day Years Used Date Smoking Tobacco: Never Alcohol Use Standard Drinks/Week Comments No 0 (1 standard drink = 0.6 oz pur e alcohol) Comments Unknown Sex and Gender Information Value Date Recorded Sex Assigned at Not on file 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 us Historical Provider [facility] DINO PHILLIPS Final Result documented in this encounter Visit Diagnoses Not on filedocumented in this encounter Care Teams Loans Officer Relationship Specialty Start Date End Date Manoj Obregon MD [address] [place] [address] PCP - General 12/15/16 09/22/18 Manoj Obregon MD [address] [place] [address] PCP - General 10/31/16 12/14/16 Manoj Obregon MD [address] [place] [place] [address] PCP - General 10/29/16 10/30/16 Manoj Obregon MD [address] [place] [place] [address] PCP - General 02/15/16 10/28/16 Manoj Obregon MD [address] [facility] [place] [address] PCP - General 12/24/15 02/14/16 Manoj Obregon MD [address] [place] [address] PCP - General 03/02/15 12/23/15 Linda Santacruz MD [address] [place] [address] PCP - General 09/23/18 07/23/19 [place] [address] [place] [address] PCP - General Internal Medicine 04/25/22 [place] [address] [place] [address] Physical Therapist Physical Therapy 01/18/22 Opal Jensen, PT Physical Therapist Physical Therapy 06/16/22 Delilah Yanez MD [address] [place] [address] Consulting Physician Cardiology 06/15/23 documented as of this encounter
--- OUTSIDE RECORDS SUMMARY | 2025-01-30 09:22 | XMS_ITS | Encounter Summary ---
Author Organization [facility] Address [address] [place] [address] Phone Care Team Providers Care System Support Analyst Name Role Phone Manoj Obregon MD Primary Care Provider [phone] Manoj Obregon MD Primary Care Provider [phone] Manoj Obregon MD Primary Care Provider [phone] Manoj Obregon MD Primary Care Provider [phone] Manoj Obregon MD Primary Care Provider [phone] Manoj Orbegon MD Primary Care Provider [phone] Linda Santacruz MD Primary Care Provider [phone] Alberta Bernardo PT Unavailable [phone] Darlene Obregon MD Primary Care Provider Opal Jensen PT Unavailable Unavailable Delilah Yanez MD Unavailable [phone] Encounter Details Date Type Department Care Team (Late st Contact Info) Description 09/13/2015 Orders Only [facility] Provider, MD Gin [address] [place] [address] Social History Tobacco Use Types Packs/Day Years Used Date Smoking Tobacco: Never Alcohol Use Standard Drinks/Week Comments No 0 (1 standard drink = 0.6 oz pur e alcohol) Comments Unknown Sex and Gender Information Value Date Recorded Sex Assigned at Not on file Legal Sex Female 1:24 AM TRANSPORTATION ATTENDANT Gender Identity Female 01/27/2023 11:59 AM CDT Sexual Orientation Not on file documented as of this encounter Plan of Treatment Not on file documented as of this encounter Procedures Procedure Name Priority Date/Time Associated Diagnosis Comments CARDIOLOGY REPORT 09/13/2015 CARDIOLOGY REPORT 09/13/2015 documented in this encounter Results * CARDIOLOGY REPORT (09/13/2015) Anatomical Region Laterality Modality Other Narrative 09/13/2015 Ordered by an unspecified provider. Historical Provider [facility] CARDIAC SERVICES PROCE DURES Final Result * CARDIOLOGY REPORT (09/13/2015) Anatomical Region Laterality Modality Other Narrative 09/13/2015 Ordered by an unspecified provider. Historical Provider CV CARDIAC SERVICES PROCE DURES Final Result documented in this encounter Visit Diagnoses Not on filedocumented in this encounter Care Teams System Support Analyst Relationship Specialty Start Date End Date Manoj Obregon MD [address] [place] [address] PCP - General 12/15/16 09/22/18 Manoj Obregon MD [address] [place] [address] PCP - General 10/31/16 12/14/16 Manoj Obregon MD [address] [place] [address] PCP - General 10/29/16 10/30/16 Manoj Obregon MD [address] [place] [address] PCP - General 02/15/16 10/28/16 Manoj Obregon MD [address] [place] [address] PCP - General 12/24/15 02/14/16 Manoj Obregon MD [address] [place] [address] PCP - General 03/02/15 12/23/15 Linda Santacruz MD [address] [place] [address] PCP - General 09/23/18 07/23/19 [place] [address] [place] [address] PCP - General Internal Medicine 04/25/22 [place] [address] [place] [address] Physical Therapist Physical Therapy 01/18/22 Opal Jensen, PT Physical Therapist Physical Therapy 06/16/22 Delilah Yanez MD [address] [place] [address] Consulting Physician Cardiology 06/15/23 documented as of this encounter
--- OUTSIDE RECORDS SUMMARY | 2025-01-30 09:22 | XMS_ITS | Encounter Summary ---
Author Organization [facility] Address [address] [place] [address] Phone Care Team Providers Care School Business Administrator Name Role Phone Manoj Obregon MD Primary Care Provider [phone] Manoj Obregon MD Primary Care Provider [phone] Manoj Obregon MD Primary Care Provider [phone] Manoj Obregon MD Primary Care Provider [phone] Manoj Obregon MD Primary Care Provider [phone] Manoj Obregon MD Primary Care Provider [phone] Linda Santacruz MD Primary Care Provider [phone] Alberta Bernardo PT Unavailable Darlene Obregon MD Primary Care Provider Opal Jensen PT Unavailable Unavailable Delilah Yanez MD Unavailable [phone] Encounter Details Date Type Department Care Team (Late st Contact Info) Description 04/28/2015 Orders Only [facility] Provider, MD Gin [address] [place] [address] Social History Tobacco Use Types Packs/Day Years Used Date Smoking Tobacco: Never Alcohol Use Standard Drinks/Week Comments No 0 (1 standard drink = 0.6 oz pur e alcohol) Comments Unknown Sex and Gender Information Value Date Recorded Sex Assigned at Not on file Legal Sex Female 1:24 AM 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 us Historical Provider CV CARDIAC SERVICES DINO PHILLIPS Final Result documented in this encounter Visit Diagnoses Not on filedocumented in this encounter Care Teams School Business Administrator Relationship Specialty Start Date End Date Manoj Obregon MD [address] [place] [address] PCP - General 12/15/16 09/22/18 Manoj Obregon MD [address] [place] [address] PCP - General 10/31/16 12/14/16 Manoj Obregon MD [address] [place] [address] PCP - General 10/29/16 10/30/16 Manoj Obregon MD [address] [place] [address] PCP - General 02/15/16 10/28/16 Manoj Obregon MD [address] [place] [address] PCP - General 12/24/15 02/14/16 Manoj Obregon MD [address] [place] [address] PCP - General 03/02/15 12/23/15 Linda Santacruz MD [address] [place] [address] PCP - General 09/23/18 07/23/19 [place] [address] [place] [address] PCP - General Internal Medicine 04/25/22 [place] [address] [place] [address] Physical Therapist Physical Therapy 01/18/22 Opal Jensen, PT Physical Therapist Physical Therapy 06/16/22 Delilah Yanez MD [address] [place] [address] Consulting Physician Cardiology 06/15/23 documented as of this encounter
--- OUTSIDE RECORDS SUMMARY | 2025-01-30 09:22 | XMS_ITS | Encounter Summary ---
Author Organization [facility] Address [address] [place] [address] Care Team Providers Care Side Splitter Name Role Phone Brenna Fox RN Unavailable [phone] Manoj Obregon MD Primary Care Provider [phone] Elvira Jain POULTRY HATCHERY LABORER-SKIN WASHER Unavailable None, Physician Primary Care Provider Unavailabl e Encounter Details Date Type Department Care Team (Late st Contact Info) Description 01/22/2020 Lab Requisition [facility] MICROBIOLOGY [address] [place] [address] Papa Drummond MD Cough Social History Tobacco Use Types Packs/Day Years Used Date Smoking Tobacco: Never Smokeless Tobacco: Never Alcohol Use Standard Drinks/Week Comments No 0 (1 standard drink = 0.6 oz pur e alcohol) Comments No Sex and Gender Information Value Date Recorded Sex Assigned at Female 01/27/2025 4:39 PM CDT Legal Sex Female 9:20 AM LICENSED PHYSICAL THERAPIST ASSISTANT Gender Identity Not on file Sexual Orientation Not on file documented as of this encounter Functional Status * Is person deaf or have serious hearing difficulty? Answer Date of Assessment Author No 12/05/2018 12:19 PM CDT Linda Melchor RN * Is person blind or have serious difficulty seeing? Answer Date of Assessment Author No 12/05/2018 12:19 PM CDLinda Mccarthy RN * Does person have serious difficulty walking/climbing stairs? Answer Date of Assessment Author No 12/05/2018 12:19 PM Linda Bennett RN * Does person have difficulty dressing/bathing? Answer Date of Assessment Author No 12/05/2018 12:19 PM Linda Bennett RN * Does person have difficulty doing errands alone? Answer Date of Assessment Author No 12/05/2018 12:19 PM Linda Bennett RN documented as of this encounter Mental Status * Does person have difficulty concentrating/remembering/making decisions? Answer Entry Date Author No 12/05/2018 12:19 PM Linda Bennett RN documented in this encounter Plan of Treatment Upcoming Encounters Date Type Department Care Team (Late st Contact Info) Description 03/24/2025 1:00 AM CDT Clinical Support [facility] - Cardiology [address] [address] 04/29/2025 8:50 AM CDT Office Visit [facility] - Dermatology [address] [facility], [place] [address] Sheryl Vazquez MD [facility] [address] [place] [address] 06/23/2025 1:00 AM CDT Clinical Support [facility] - Cardiology [address] [facility], [address] [address] 08/04/2025 1:40 PM LICENSED PHYSICAL THERAPIST ASSISTANT Office Visit [facility] - Cardiology [address] [facility], [address] [address] Ana Niño MD [address] [place] [address] 09/22/2025 1:00 AM LICENSED PHYSICAL THERAPIST ASSISTANT Clinical Support [facility] - Cardiology [address] [place] [address] documented as of this encounter Procedures Procedure Name Priority Date/Time Associated Diagnosis Comments SARS-COV-2 (COVID-19) IN HOUSE Routine 01/22/2020 1:08 PM CDT Cough documented in this encounter Results * SARS-COV-2 (COVID-19) IN HOUSE (01/22/2020 1:08 PM CDT) COVID-19 PCR Not detected Not detected, Invalid 01/23/2020 1:45 PM CDT [facility] Microbiology SPECIMEN FROM NASOPHARYNGEAL STRUCTURE / Unknown Collection / Unknown 01/22/2020 1:08 PM CDT 01/22/2020 5:00 PM CDT Narrative [facility] - 01/23/2020 1:45 PM CDT This Real Time RT-PCR assay was developed and its performance characteristics determined by [facility]. This test has been authorized by the Food and Drug administration (FDA)under an Emergency Use Authorization (EUA). This test has been validated in accordance with the FDA's guidance document Policy for Diagnostic Testing in Laboratories Certified to perform High Complexity Testing under CLIA prior to Emergency Use Authorization for Coronavirus Disease-2019 during the Public Health Emergency issued on November 15, 2019. FDA independent review of this validation is pending. This test is only authorized for the duration of time the declaration that circumstances exist justifying the authorization of emergency use of in vitro diagnostic tests for detection of SARS-CoV-2 virus and/or diagnosis of COVID-19 infection under section 564(b)(1) of the Act, 21 U.S.C 360bbb-3 (b)(1), unless the authorization is terminated or revoked sooner. Papa Drummond MD LAB - MICROBIOLOGY ORDERABL ES Final Result [facility] [address] [place] [address], [facility] [phone] documented in this encounter Visit Diagnoses Diagnosis Cough documented in this encounter Care Teams Side Splitter Relationship Specialty Start Date End Date Manoj Obregon MD [address] [place] [address] PCP - General 12/05/19 12/25/24 Elvira Jain APRN-SKIN WASHER [address] [place] [id number] PCP - Attributed-Cm Medicaid [facility] 05/18/21 02/28/23 None, Physician PCP - General 12/26/24 Brenna Fox, RN [address] [facility] [address] [place] [address] [facility] 03/30/15 documented as of this encounter
--- OUTSIDE RECORDS SUMMARY | 2025-01-30 09:22 | XMS_ITS | Clinical Summary ---
Author Organization [facility] Address [address] [place] [address] Care Team Providers Care Weighing Station Operator Name Role Phone Sree Aviles MD Primary Care Provider [phone] Allergies Active Allergy Reactions Criticality Noted Date Comments Carbamazepine Hallucinations,Other (see comment),Unknown High 11/01/2019 Haluzzinations Other reaction(s): Hallucinations Ceftriaxone Hives,Itching,Rash High 04/01/2020 Lacosamide Rash Medium 11/13/2015 Other reaction(s): Unknown Cerner Allergy Text Annotation: lacosamide Lorazepam Itching,Rash Medium 03/29/2015 Reaction: Rash, , , Reaction: rash, , , Reaction: Rash, Paroxetine Itching,Rash Medium 03/29/2015 Reaction: Rash, , , Reaction: rash, , , Tape Itching Medium 07/12/2023 Active Problems Problem Noted Date Diagnosed Date Right bundle branch block 04/23/2024 S/P ablation of atrial fibrillation 06/14/2023 SVT (supraventricular tachycardia) (HHS/HCC) Anxiety 01/26/2020 Overview (12/01/2024): Last Assessment & Plan: Condition: stable Pt encouraged to use relaxation to help cope with anxiety. Relaxation can take place in seconds and does not require a quiet environment. When stressed use a 30 to 90 seconds (or more) time out including deep breathing. When deep breathing, try to visualize yourself in a peaceful place or doing something you enjoy. Stay active and spend time with others. Pt encouraged to plan ahead and make simple changes in their daily routine to help decrease anxiety. Follow up in: three months with PCP Cardiac condition complicati ng , antepartum (HHS/HCC) 10/24/2018 Ventricular tachycardia, nonsustained (CMS/HCC H HS/HCC) 06/28/2018 Obstructive sleep apnea syndrome 11/02/2017 Overview (12/01/2024): Last Assessment & Plan: Condition: stable Patient reports compliance with CPAP machine. Discussed the health side effects of sleep apnea. Encouraged continued use of CPAP. Follow up with PCP/Specialist as scheduled. Follow up in: six months Presence of cardiac pacemaker 11/01/2017 Overview (12/01/2024): Last Assessment & Plan: Condition: stable Cardiology follows patient. Follow up with PCP/specialist as scheduled. Follow up in: six months Sick sinus syndrome ([facility]) 11/01/2017 Overview (12/01/2024): Last Assessment & Plan: Condition: stable Cardiology follows patient. Continue medications as prescribed and follow up with PCP/specialist as scheduled. Follow up in: six months Seizure disorder ([facility]) 01/09/2017 Overview (12/01/2024): Last Assessment & Plan: Condition: stable Condition is no longer managed with medication. Last seizure was in 2015. No bathing, swimming, operating dangerous machinery, climbing ladders without supervision No driving unless cleared by your health care provider. Follow up in: one year Asystole ([facility]) 08/19/2014 Bradycardia 08/19/2014 Vasovagal syncope 07/25/2012 Syncope and collapse 05/29/2010 Social History Tobacco Use Types Packs/Day Years Used Date Smoking Tobacco: Never Assessed Comments Unknown Sex and Gender Information Value Date Recorded Sex Assigned at Not on file Legal Sex Female 10:58 AM GROUP CAPTAIN Gender Identity Not on file Sexual Orientation Not on file Plan of Treatment Health Maintenance Due Date Last Done Comments Cervical Cancer Screening Pa p Smear (Age 30 to 64) Every 3 Years 1991 Annual Physical 1994 Hepatitis C 2009 Cervical Cancer Screening Pa p with HPV Testing (Age 30 to 64) Every 5 Years 2021 Cervical Cancer Screening wi th HPV 2021 COVID-19 Vaccine (2023-2 5 season) 2024 DTaP, Tdap and Td Vaccines ( 2 - Td or Tdap) 10/09/2028 10/09/2018 Hepatitis B Vaccines Completed 03/25/1997, 10/22/1996, 08/27/1996 HPV Vaccines Aged Out No longer eligi ble based on patient's age to complete this topic Meningococcal B Vaccine Aged Out No l onger eligible based on patient's age to complete this topic Meningococcal Vaccine Aged Out No adrianna cristino eligible based on patient's age to complete this topic Pneumococcal Vaccine: Pediatrics (0 to 5 Years) and At-Risk Patients (6 to 49 Years) Aged Out No longer eligible b ased on patient's age to complete this topic RSV Immunizations Under 20 Months Aged Out No longer eligible b ased on patient's age to complete this topic Medical Devices Implanted Type Area Deposit Clerk Device Identifier Shelf Expiration Date Model / Serial / Lot Pacemaker-Medt Pacemaker Insurance [id number] Care Teams Weighing Station Operator Relationship Specialty Start Date End Date Sree Aviles MD [address] [place] [address] PCP - General FAMILY PRACTICE 10/16/24
--- OUTSIDE RECORDS SUMMARY | 2025-01-30 09:22 | XMS_ITS | Encounter Summary ---
Author Organization [facility] Address [address] [place] [address] Phone Care Team Providers Care Vat Operator Name Role Phone Manoj Obregon MD Primary Care Provider [phone] Manoj Obregon MD Primary Care Provider [phone] Manoj Obregon MD Primary Care Provider [phone] Manoj Obregon MD Primary Care Provider [phone] Manoj Obregon MD Primary Care Provider Manoj Obregon MD Primary Care Provider [phone] Linda Santacruz MD Primary Care Provider [phone] Alberta Bernardo PT Unavailable [phone] Darlene Obregon MD Primary Care Provider Opal Jensen PT Unavailable Unavailable Delilah Yanez MD Unavailable [phone] Encounter Details Date Type Department Care Team (Late st Contact Info) Description 12/12/2015 Orders Only [facility] Provider, MD Gin [address] [place] [address] Social History Tobacco Use Types Packs/Day Years Used Date Smoking Tobacco: Never Alcohol Use Standard Drinks/Week Comments No 0 (1 standard drink = 0.6 oz pur e alcohol) Comments Unknown Sex and Gender Information Value Date Recorded Sex Assigned at Not on file Legal Sex Female 1:24 AM HOUSING MANAGEMENT REPRESENTATIVE Gender Identity Female 01/27/2023 11:59 AM CDT Sexual Orientation Not on file documented as of this encounter Plan of Treatment Not on file documented as of this encounter Procedures Procedure Name Priority Date/Time Associated Diagnosis Comments CARDIOLOGY REPORT 12/12/2015 CARDIOLOGY REPORT 12/12/2015 documented in this encounter Results * CARDIOLOGY REPORT (12/12/2015) Anatomical Region Laterality Modality Other Narrative 12/12/2015 Ordered by an unspecified provider. Historical Provider CV CARDIAC SERVICES PROCE DURES Final Result * CARDIOLOGY REPORT (12/12/2015) Anatomical Region Laterality Modality Other Narrative 12/12/2015 Ordered by an unspecified provider. Historical Provider CV CARDIAC SERVICES PROCE DURES Final Result documented in this encounter Visit Diagnoses Not on filedocumented in this encounter Care Teams Vat Operator Relationship Specialty Start Date End Date Manoj Obregon MD [address] [place] [address] PCP - General 12/15/16 09/22/18 Manoj Obregon MD [address] [place] [address] PCP - General 10/31/16 12/14/16 Manoj Obregon MD [address] [place] [address] PCP - General 10/29/16 10/30/16 Manoj Obregon MD [address] [place] [address] PCP - General 02/15/16 10/28/16 Manoj Obregon MD [address] [place] [address] PCP - General 12/24/15 02/14/16 Manoj Obregon MD [address] [place] [address] PCP - General 03/02/15 12/23/15 Linda Santacruz MD [address] [place] [address] PCP - General 09/23/18 07/23/19 [place] [address] [place] [address] PCP - General Internal Medicine 04/25/22 [place] [address] [place] [address] Physical Therapist Physical Therapy 01/18/22 Opal Jensen, PT Physical Therapist Physical Therapy 06/16/22 Delilah Yanez MD [address] [place] [address] Consulting Physician Cardiology 06/15/23 documented as of this encounter
--- OUTSIDE RECORDS SUMMARY | 2025-01-30 09:22 | XMS_ITS | CONTINUITY OF CARE DOCUMENT ---
Author Name theo venegas Address Unknown Organization [facility] Address [address] [place] [address] Phone [phone] Care Team Providers Care Computer Systems Administrator Name Role Phone Melanie Negro MD Unavailable [phone] RONALD SANCHEZ MD Unavailable RONALD SANCHEZ MD Unavailable [phone] PROBLEMS Condition Status Date Provider Notes Family History of Hypertension: active ? 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 active Melanie Negro MD Ventricular tachycardia, nonsustained active Hank David Preoperative cardiovascular evaluation active Melanie Negro MD for pregnanc y Edema - localized active Melanie Vásquez Personal history of COVID-19 active Melanie Negro MD Hypertension active Melanie Negro MD Cardiology examination active Melanie pedro MD SVT active Zulma العراقي BOTTOM LINER Cardiology examination active Delilah walter MD ENCOUNTERS Date Type Provider Location Encounter Diag nosis - In-person encounter Office Visit Delilah Yanez MD [facility] Cardiology examination - In-person encounter Office Visit Melanie Negro MD [facility] - In-person encounter Office Visit Melanie Negro MD [facility] - In-person encounter Office Visit Delilah Yanez MD [facility] - In-person encounter Office Visit Delilah Yanez MD [facility] SVT - In-person encounter Office Visit Melanie Negro MD [facility] - In-person encounter Office Visit Delilah Yanez MD [facility] Pacemaker- [employer] MRI SAFE - In-person encounter Office Visit Delilah Yanez MD [facility] Pacemaker- [employer] MRI SAFE - In-person encounter Office Visit Melanie Negro MD [facility] Cardiology examination - In-person encounter Office Visit Melanie Negro MD [facility] Hypertension - In-person encounter Office Visit Raad Minor MD [facility] - In-person encounter Office Visit Melaine Negro MD [facility] Personal history of COVID-19 - In-person encounter Office Visit Melanie Negro MD [facility] - In-person encounter Office Visit Melanie Negro MD [facility] - In-person encounter Office Visit Melanie Negro MD [facility] - In-person encounter Office Visit Melanie Negro MD [facility] Edema - localized - In-person encounter Office Visit Melanie Negro MD [facility] - In-person encounter Office Visit Delilah Yanez MD [facility] - In-person encounter Office Visit Melanie Negro MD [facility] - In-person encounter Office Visit Melanie Negro MD [facility] Preoperative cardiovascular evaluation - In-person encounter Office Visit Delilah Yanez MD [facility] Ventricular tachycardia, nonsustained - In-person encounter Office Visit Melanie Negro MD [facility] - In-person encounter Office Visit Melanie Negro MD [facility] Family History of Hypertension:Sick sinus syndromePostural orthostatic tachycardia syndromePacehu [facility]- [employer] MRI SAFESyncopeSLEEP APNEA- ? VITAL SIGNS Date Observation Value Provider Body Mass Index (Ratio) 56.14 kg/m2 Chris Yanez MD blood pressure, diastolic 74 mm[facility]Hg[facility][Hg[facility] weight E&M 307 [lb_av] [facility] pulse rate 79 /min [facility] oxygen saturation, oximetry 100 % [facility] blood pressure, cuff size large [facility] respiratory rate E&M 12 /min Susan [place] height E&M 62 [in_i] [facility] Body Mass Index (Ratio) 54.50 kg/m2 Edward Negro MD pulse rate 96 /min Susan [place] blood pressure, cuff size [facility], diastolic 58 mm[Hg] [facility], systolic 116 mm[Hg] [facility] [place] oxygen saturation, oximetry 98 % Susan Ballesteros weight E&M 298 [lb_av] Susan Ballesteros respiratory rate E&M 12 /min Susan Ballesteros height E&M 62 [in_i] Susan Ballesteros blood pressure, diastolic 90 mm[Hg] Li nkLog blood pressure, systolic 166 mm[Hg] Sandy kLog respiratory rate E&M 16 /min Venancio pulse rate 90 /min Venancio blood pressure, diastolic 90 mm[Hg] Ta puga blood pressure, cuff size large Kandace shi Robert height E&M 62 [in_i] Pina Robert blood pressure, systolic 166 mm[Hg] Allen goncalves Body Mass Index (Ratio) 55.41 kg/m2 Kimani Ga blood pressure, diastolic 69 mm[Hg] Kandace shi Robert blood pressure, systolic 94 mm[Hg] Lori nagel Robert pulse rate 71 /min Pina Robert oxygen saturation, oximetry 99 % Pina Robert weight E&M 303 [lb_av] Pina Robert height E&M 62 [in_i] Pina Robert blood pressure, cuff size large Kandace shi Robert Body Mass Index (Ratio) 55.41 kg/m2 Kimani Sury blood pressure, cuff size large Ke rri Chrisueneyared blood pressure, diastolic 80 mm[Hg] Ke rri Chrisuenenfjanae blood pressure, systolic 132 mm[Hg] Russell Nice oxygen saturation, oximetry 98 % Sintia Nice respiratory rate E&M 12 /min Sintia cervantes pulse rate 84 /min Sintia Mayberry lder weight E&M 303 [lb_av] Sintia Mayberry height E&M 62 [in_i] Sintia Brunoe er Body Mass Index (Ratio) 54.13 kg/m2 Edward Negro MD blood pressure, diastolic 64 mm[Hg] Karlie nkLogmoni blood pressure, systolic 99 mm[Hg] Sandy kLogic blood pressure, cuff size large Ja rret blood pressure, diastolic 64 mm[Hg] Ja rret blood pressure, systolic 99 mm[Hg] Jar ret weight E&M 296 [lb_av] Venancio y respiratory rate E&M 12 /min Venancio oxygen saturation, oximetry 98 % pulse rate 68 /min Venancio y height E&M 62 [in_i] Venancio y Body Mass Index (Ratio) 52.49 kg/m2 Kimani Ga blood pressure, diastolic 76 mm[Hg] Juve ferreira Fendler COMMUNICATIONS EQUIPMENT SUPERVISOR blood pressure, systolic 128 mm[Hg] Gerda weberer Fendler COMMUNICATIONS EQUIPMENT SUPERVISOR oxygen saturation, oximetry 99 % Brenna Fendler COMMUNICATIONS EQUIPMENT SUPERVISOR respiratory rate E&M 18 /min Jennife r Fendler COMMUNICATIONS EQUIPMENT SUPERVISOR pulse rate 83 /min Brenna Fendle r COMMUNICATIONS EQUIPMENT SUPERVISOR weight E&M 287 [lb_av] Brenna Fendle r COMMUNICATIONS EQUIPMENT SUPERVISOR Body Mass Index (Ratio) 52.30 kg/m2 Chris Yanez MD blood pressure, cuff size large Ke rri Chrisueneyared blood pressure, diastolic 79 mm[Hg] Ke rri Grueneramaelder blood pressure, systolic 132 mm[Hg] Russell Brunoelder oxygen saturation, oximetry 98 % Sintia Brunoelder respiratory rate E&M 16 /min Sintia moraleselder pulse rate 80 /min Sintia Peoplesneramae er weight E&M 286 [lb_av] Sintia Peoplesnenfe lder height E&M 62 [in_i] Sintia Peoplesnenfe [facility] Body Mass Index (Ratio) 52.12 kg/m2 Edward Negro MD blood pressure, cuff size regular Beth Babcock blood pressure, diastolic 88 mm[Hg] Beth Babcock blood pressure, systolic 102 mm[Hg] Carson Babcock oxygen saturation, oximetry 97 % Sonia Babcock respiratory rate E&M 16 /min Sonia Babcock pulse rate 95 /min Sonia Babcock weight E&M 285 [lb_av] Sonia Babcock height E&M 62 [in_i] Sonia Babcock Body Mass Index (Ratio) 47.92 kg/m2 Edward Negro MD weight E&M 262 [lb_av] Margarita [place] oxygen saturation, oximetry 99 % Margarita [place] respiratory rate E&M 16 /min Catheri ne [place] pulse rate 85 /min Margarita Raphael blood pressure, cuff size regular Ca therine Raphael height E&M 62 [in_i] Margarita Raphael Body Mass Index (Ratio) 49.74 kg/m2 Betito Minor MD blood pressure, diastolic 65 mm[Hg] Sa ra Clark blood pressure, systolic 110 mm[Hg] Ana Luisa a Clark oxygen saturation, oximetry 98 % Leeanna Clark respiratory rate E&M 22 /min Leeanna Si ms pulse rate 80 /min Leeanna Clark blood pressure, cuff size large Sa ra Clark weight E&M 272 [lb_av] Leeanna Clark height E&M 62 [in_i] Leeanna Clark Body Mass Index (Ratio) 50.11 kg/m2 Edward Negro MD blood pressure, cuff size large Ke rri Gruenenfelder blood pressure, diastolic 70 mm[Hg] Ke rri Gruenenfelder blood pressure, systolic 120 mm[Hg] Ker ri Sheltonnenfelder oxygen saturation, oximetry 96 % Sintia Arlet respiratory rate E&M 14 /min Sintia G ruenenfelder pulse rate 89 /min Sintia Gruenenfe lder weight E&M 274 [lb_av] Sintia Gruenenfe lder height E&M 62 [in_i] Sintia Gruenenfe lder Body Mass Index (Ratio) 53.40 kg/m2 Edward Negro MD blood pressure, diastolic 60 mm[Hg] Li nkLogic blood pressure, systolic 110 mm[Hg] Sandy kLogic blood pressure, diastolic 60 mm[Hg] Viviane Schneider blood pressure, systolic 110 mm[Hg] Beena Schneider oxygen saturation, oximetry 98 % Jamie Schneider respiratory rate E&M 16 /min Guille Schneider pulse rate 98 /min Jamie golden weight E&M 292 [lb_av] Jamie golden height E&M 62 [in_i] Jamie Larson on Body Mass Index (Ratio) 53.04 kg/m2 Edward Negro MD blood pressure, cuff size large Ke rri Gruenenfelder blood pressure, diastolic 80 mm[Hg] Ke rri Gruenenfelder blood pressure, systolic 122 mm[Hg] Ker ri Arlet oxygen saturation, oximetry 98 % Sintia Arlet respiratory rate E&M 16 /min Sintia Preeti cervantes pulse rate 70 /min Sintia Jefe [facility] weight E&M 290 [lb_av] Sintia Sheltonnenfe er height E&M 62 [in_i] Sintia Jefe [facility] Body Mass Index (Ratio) 51.72 kg/m2 Edward Negro MD blood pressure, diastolic 60 mm[Hg] Viviane Schneider blood pressure, systolic 104 mm[Hg] Beena Schneider oxygen saturation, oximetry 98 % Jamie Woodsenson respiratory rate E&M 18 /min Guille Schneider pulse rate 70 /min Jamie Larson eloy weight E&M 282.8 [lb_av] Jamie Woods ron height E&M 62 [in_i] Jamie Larson on Body Mass Index (Ratio) 49.01 kg/m2 Colin Mart blood pressure, diastolic 90 mm[Hg] To nsha Florian blood pressure, systolic 119 mm[Hg] Ton sha Florian pulse rate 94 /min Tonsha Florian respiratory rate E&M 18 /min Tonsha Florian oxygen saturation, oximetry 99 % Tonsha Florian weight E&M 268 [lb_av] Debi Florian height E&M 62 [in_i] [facility] Index (Ratio) 44.73 kg/m2 Edward Negro MD blood pressure, cuff size regular Kr pedro luis Christelle blood pressure, diastolic 70 mm[Hg] Luis brooksty Christelle blood pressure, systolic 100 mm[Hg] Krlizbeth mix [place] oxygen saturation, oximetry 99 % Ginna Beattyby pulse rate 87 /min Ginna Christelle respiratory rate E&M 17 /min Ginna [place] weight E&M 244.6 [lb_av] Ginna Beattyby height E&M 62 [in_i] Ginna Beattyby Body Mass Index (Ratio) 43.34 kg/m2 Nataliia Varela blood pressure, cuff size regular Cy elle Almaguer blood pressure, diastolic 70 mm[Hg] Cy elle Almaguer blood pressure, systolic 114 mm[Hg] Kim kristy Almaguer respiratory rate E&M 16 /min Pam Almaguer oxygen saturation, oximetry 97 % Pam Almaguer pulse rate 93 /min Pam Santoshbel l weight E&M 237 [lb_av] Pam Campbel l height E&M 62 [in_i] Pam Campbel l Body Mass Index (Ratio) 43.16 kg/m2 Edward Negro MD blood pressure, diastolic 60 mm[Hg] Carl Sunshine blood pressure, systolic 100 mm[Hg] Bipin estephaniaarpit Briceam oxygen saturation, oximetry 98 % [place] Sunshine respiratory rate E&M 16 /min Natalia Sunshine pulse rate 104 /min Natalia Sunshine weight E&M 236 [lb_av] [place] Sunshine height E&M 62 [in_i] Natalia Sunshine Body Mass Index (Ratio) 46.27 kg/m2 Avery Plurad blood pressure, diastolic 70 mm[Hg] Da melly Glen blood pressure, systolic 110 mm[Hg] Dac ia Glen oxygen saturation, oximetry 96 % Janna Glen respiratory rate E&M 16 /min Janna V oss pulse rate 83 /min Janna Glen weight E&M 253 [lb_av] Janna Glen height E&M 62 [in_i] Janna Glen Body Mass Index (Ratio) 48.10 kg/m2 Nam olea Joann blood pressure, cuff size regular Cy elle Almaguer blood pressure, diastolic 80 mm[Hg] Cy elle Almaguer blood pressure, systolic 122 mm[Hg] Kim kristy Almaguer oxygen saturation, oximetry 98 % Pam Almaguer respiratory rate E&M 16 /min Pamkristy Almaguer pulse rate 94 /min Pam Frostbel l weight E&M 263 [lb_av] Pam Campbel l height E&M 62 [in_i] Pam Campbel l Body Mass Index (Ratio) 49.20 kg/m2 Celia Nava blood pressure, cuff size large Ke rri Arlet blood pressure, diastolic 80 mm[Hg] Ke rri Chrisuenenfjanae blood pressure, systolic 120 mm[Hg] Russell Nice oxygen saturation, oximetry 96 % Sintia Nice respiratory rate E&M 24 /min Sintia cervantes pulse rate 98 /min Sinita urias weight E&M 269 [lb_av] Sintia Mayberry lder height E&M 62 [in_i] Sintia Mayberry lder Body Mass Index (Ratio) 48.13 kg/m2 Edward Negro MD blood pressure, resting Yes Ashley Schneider blood pressure, diastolic 68 mm[Hg] Viviane Schneider blood pressure, systolic 107 mm[Hg] Beena Schneider oxygen saturation, oximetry 98 % Jamie Schneider respiratory rate E&M 18 /min Guille Schneider pulse rate 81 /min Jamie golden weight E&M 263.2 [lb_av] Jamie velasquez height E&M 62 [in_i] Jamie golden ALLERGIES Allergy Name Onset Date Reaction Criticality Status ROCEPHIN hives hives High Criticality active CARBAMAZEPINE rash rash High Criticality activ e LACOSAMIDE rashes High Criticality active ATIVAN Low Criticality active PAXIL Low Criticality active RESULTS Date Observation Value Provider Reference Range Interpretation Location 7 hemoglobin A1C, blood, as % of total hemoglobin 5.4 % [facility] 4.8-5.6 7 free thyroxine index 1.6 [facility] 1.2-4.9 7 triiodothyronine resin uptake 24 % [facility] 24-39 7 thyroxine, serum, total 6.5 ug/dL [facility] 4.5-12.0 7 thyroid stimulating hormone, serum 1.550 u[IU]/mL [facility] 0.450-4.500 7 lipoprotein, beta, serum, point, quantitative, calculated 118 mg/dL [facility] 0-99 High 7 very low density lipoproteins 36 mg/dL [facility] 5-40 7 HDL cholesterol, serum 37 mg/dL [facility] >39 Low 7 triglyceride, serum, random 181 mg/dL [facility] 0-149 High 7 cholesterol, serum 191 mg/dL [facility] 305-311 2622/02/1 7 platelet count 413 X10E3/UL [facility] 150-379 High 7 red blood cell distribution width 14.2 % [facility] 12.3-15.4 7 mean corpuscular hemoglobin concentration, RBC 32.2 G/DL [facility] 31.5-35.7 7 mean corpuscular hemoglobin, RBC 27.2 pg [facility] 26.6-33.0 7 mean corpuscular volume, RBC 85 fL [facility] 79-97 7 hematocrit, blood 38.2 % [facility] 34.0-46.6 7 hemoglobin, blood 12.3 g/dL [facility] 11.1-15.9 7 erythrocyte (RBC) count 4.52 X10E6/UL [facility] 3.77-5.28 7 leukocyte count, blood 9.6 X10E3/UL [facility] 3.4-10.8 7 alanine aminotransferase (SGPT), serum 12 1/L [facility] 0-32 7 aspartate aminotransferase (SGOT), serum 16 1/L [facility] 0-40 7 alkaline phosphatase, serum 95 1/L [facility] 39-117 7 bilirubin, serum, total <0.2 mg/dL [facility] 0.0-1.2 7 albumin/globulin ratio, serum 1.2 [facility] 1.2-2.2 7 globulin, serum 3.2 [facility] 1.5-4.5 7 albumin, serum 3.9 g/dL [facility] 3.5-5.5 7 protein, total, serum 7.1 g/dL [facility] 6.0-8.5 7 calcium, serum 9.3 mg/dL [facility] 8.7-10.2 7 carbon dioxide, venous blood 26 mmol/L [facility] 18-29 7 chloride, serum 102 mmol/L [facility] 96-106 7 potassium, serum 4.5 mmol/L [facility] 3.5-5.2 7 sodium, serum 142 mmol/L [facility] 209-372 3876/02/1 7 urea nitrogen/creatinine ratio, serum 13 [facility] 9-23 7 eGFR if not 94 mL/min/{1 .73_m2} [facility] >59 7 creatinine, serum 0.86 mg/dL [facility] 0.57-1.00 7 urea nitrogen, blood 11 mg/dL [facility] 6-20 7 blood glucose, random 81 mg/dL [facility] 65-99 HISTORY OF MEDICATION USE Medication Status Instructions Dates Provider Indications Com ments topiramate 50 mg tablet active Susan Ballesteros clobetasol 0.05% solution active Susanlino Ballesteros buspirone 10 mg tablet active Susan Ballesteros flecainide 100 mg tablet active TAKE 1 TABLET BY MOUTH TWICE A DAY Sintia Nice metoprolol succinate 25 mg tablet extended release 24 hr active TAKE 1 TABLET BY MOUTH EVERY DAY Zaina Proctor hydroxyzine HCl 10 mg tablet completed TAKE ONE (1) TABLET BY MOUTH EVERY 6 HOURS, NEEDED - Joseph Guy NP Symbicort 80-4.5 mcg/actuation HFA aerosol inhaler active INHALE 2 PUFFS TWICE A DAY Brenna Kumar NP trazodone 100 mg tablet completed TAKE 1 TABLET BY MOUTH AT BEDTIME NEEDED - Zulma ALEMAN flecainide 100 mg tablet completed Take 1 tablet by mouth twice a day TAKE 1 TABLET TWICE A DAY. start taking 07/24 - Sintia Nice magnesium oxide 400 mg magnesium tablet active Take 1 tablet by mouth twice a day Sintia Nice bupropion HCl 300 mg tablet extended release 24 hr active once a day Brenna Kumar NP metoprolol succinate 25 mg tablet extended release 24 hr completed Take 1 tablet by mouth once a day - Venancio Vogtsatya Ibuprofen IB 200 mg tablet completed Take 4 tablet by mouth three times a day 800 mg three times a day with meals for a week - Zulma ALEMAN aripiprazole 5 mg tablet completed TAKE 1 TABLET BY MOUTH EVERY DAY - Susan Ballesteros triamcinolone acetonide 0.1% lotion completed APPLY THIN LAYER TO POSTERIOR SCALP AT BEDTIME 3 TIMES PER WEEK - Joseph Guy NP TRAZODONE HCL 50 MG TABS completed every night as needed - Sintia Nice gabapentin 100 mg capsule completed once a day - Sintia Nice Ventolin HFA 90 mcg/actuation HFA aerosol inhaler completed 2 puff every four to six hours - Sintia Nice albuterol sulfate 2.5 mg/3 mL (0.083 %) solution for nebulization completed as directed - Zulma ALEMAN metoprolol succinate 25 mg tablet extended release 24 hr completed 1 tablet once a day - Melanie Negro MD buspirone 5 mg tablet completed 1 tablet twice a day - Brenna Kumar NP meclizine 25 mg tablet completed 1 tablet three times a day - Melanie Negro MD MAGNESIUM OXIDE 400 (241.3 MG) MG TABS completed TAKE 1 TABLET BY MOUTH TWICE DAILY - Jamie Schneider magnesium oxide 400 mg (241.3 mg magnesium) tablet completed 1 tablet twice a day - Jamie Schneider MEDICAL COMPRESSION THIGH HIGH completed Wear as directed - Jamie Schneider TOPROL XL 25 MG ORAL TABLET EXTENDED RELEASE 24 HOUR completed 1/2 TAB DAILY - Pam Almaguer SPRINTEC 28 0.25-35 MG-MCG ORAL TABLET completed as directed - Pam Almaguer #28, 28 days supply, Filled 11/25/2017 BUFFERED SALT ORAL TABLET completed 1000 mg once a day - Jamie Schneider midodrine 10 mg tablet completed Take 1 tablet by mouth three times a day - Jamie Schneider CONTROL PILLS completed - Sintia Nice METOPROLOL completed - Sintia Nice SOCIAL HISTORY Date Observation Value Provider number of grandchildren Delilah Yanez MD personal history of marijuana use no Brenna Kumar COMMUNICATIONS EQUIPMENT SUPERVISOR drug use no Brenna Chase r COMMUNICATIONS EQUIPMENT SUPERVISOR alcohol use no Brenna Chase r COMMUNICATIONS EQUIPMENT SUPERVISOR smoking status Never smoker Brenna hodges COMMUNICATIONS EQUIPMENT SUPERVISOR personal history of marijuana use no Zulma Ventimiglia [facility] drug use no Zulma Ventimig sai BOTTOM LINER alcohol use no Zulma Ventimig sai BOTTOM LINER smoking status Never smoker Zulma Ventim iglia [facility] social history E&M S moking History: Aimee marin has never smoked. Melanie Negro MD social history reviewed E&M revi ewed - no changes required Melanie Negro MD smoking status Never smoker Pinarobe Jones social history reviewed E&M revi ewed - no changes required Joseph Guy NP social history E&M S moking History: Aimee marin has never smoked. Joseph Guy NP Exercise counseling yes Pina Drew meyer smoking status Never smoker Pinarobe Jones drug use no Zulma Ventimig sai BOTTOM LINER alcohol use no Zulma Ventimig sai BOTTOM LINER smoking status Never smoker Zulma soto BOTTOM LINER social history reviewed E&M revi ewed - no changes required Joseph Hickmangabyri COMMUNICATIONS EQUIPMENT SUPERVISOR social history E&M S moking History: Aimee marin has never smoked. Joseph Hickmangabyri COMMUNICATIONS EQUIPMENT SUPERVISOR drug use no Joseph Hickmanreri COMMUNICATIONS EQUIPMENT SUPERVISOR alcohol use no Joseph Hickmanreri COMMUNICATIONS EQUIPMENT SUPERVISOR smoking status Never smoker Joseph Phamr i COMMUNICATIONS EQUIPMENT SUPERVISOR smoking status Never smoker Brenna Bandar hodges COMMUNICATIONS EQUIPMENT SUPERVISOR Exercise counseling yes Brenna Kumar COMMUNICATIONS EQUIPMENT SUPERVISOR social history reviewed E&M revi ewed - no changes required Delilah Yanez MD smoking status Never smoker Sintia walker social history E&M Smoking Histo ry: Aimee marin has never smoked. Melanie Negro MD social history reviewed E&M revi ewed - no changes required Melanie Negro MD social history reviewed E&M revi ewed - no changes required Raad Minor MD social history reviewed E&M revi ewed - no changes required Melanie Negro MD social history E&M S moking History: Aimee marin has never smoked. Melanie Negro MD social history reviewed E&M revi ewed - no changes required Melanie Negro MD smoking status Never smoker Jamie Antonio tommytracy social history E&M S moking History: Aimee marin has never smoked. Melanie Negro MD social history reviewed E&M revi ewed - no changes required Melanie Negro MD smoking status Never smoker Sintia Rogelio walker social history E&M S moking History: Aimee marin has never smoked. Melanie Negro MD social history reviewed E&M revi ewed - no changes required Melanie Negro MD smoking status Never smoker Jamie Peacock social history E&M S moking History: P tomas has never smoked. Melanie Negro MD social history reviewed E&M revi ewed - no changes required Melanie Negro MD smoking status Never smoker Melanie pedro MD social history E&M S moking History: P tomas has never smoked. Melanie Negro MD social history reviewed E&M revi ewed - no changes required Melanie Ngero MD number of grandchildren Melanie Negro MD smoking status Never smoker Ginna Christelle number of grandchildren Delilah Varela handedness L Handed Ye Avery social history reviewed E&M revi ewed - no changes required Ye Varela smoking status Never smoker Pam capps social history reviewed E&M revi ewed - no changes required Melanie Negro MD social history E&M S moking History: Aimee marin has never smoked. Melanie Negro MD smoking status Never smoker Natalia randle number of grandchildren Melanie Varela [employer] social history E&M S moking History: Aimee marin has never smoked. Melanie Negro MD social history reviewed E&M revi ewed - no changes required Melanie Negro MD smoking status Never smoker Janna Carroll number of grandchildren Delilah David social history reviewed E&M revi ewed - no changes required Hank David social history E&M S moking History: Aimee marin has never smoked. Hank David smoking status Never smoker Pam capps social history reviewed E&M revi ewed - no changes required Melanie Negro MD social history E&M S moking History: Aimee marin has never smoked. Melanie Negro MD smoking status Never smoker Sintia walker number of grandchildren Melanie Negro MD social history reviewed E&M revi ewed - no changes required Melanie Negro MD social history E&M S moking History: Aimee marin has never smoked. Melanie Negro MD smoking status Never smoker Jamie Peacock FAMILY HISTORY Family Member Condition Father Family History of Co ronary Artery Disease: Father Family History of Hy pertension: INSURANCE PROVIDERS Payer name Policy type / Coverage type [place] [employer] party ID JADE MEDICAID Medicaid [id number] ADVANCE DIRECTIVES Name Date DISCUSSED - NO DECISION MADE TREATMENT PLAN Date Name Performer [id number],S,D ocumented BP reading is from patient's home BP readings due to white coat hypertension. Melanie Negro MD [id number],S,C ONCLUSIONS: 1 . Normal left ventricular systolic function. Normal left ventricular size. Normal left ventricular wall thickness. Normal left v entricular diastolic function. E/E': 6.5 Left ventricular ejection fraction is measured at 60 %. 2 . The tricuspid valve is normal in appearance and function. There is mild tricuspid regurgitation. IVC is normal in size with normal respiratory response. The RA pressure is estimated at 5.0 mmHg Estimated peak pulmonary artery systolic pressure is 2 8.0 mmHg. E lectronically signed by Melanie Negro MD on 06/08/2023 at 8:33 AM Melanie Negro MD [id number],C, T he patient is using CPAP on a regular basis. The patient has been benefiting from therapy and should continue use. Melanie Negro MD [id number],C,pacemaker Leodan Negro MD [id number],C,p ost ablation n otices improvement, less frequency of LOC c urrently on flecanide and BB Melanie Negro MD [id number],C, D evice check on 03/16/2023 showed 9 NS-VT events longest 1 sec, fastest 200bpm and 24 SVT events longest 2:52 minutes, fastest 16 bpm. July 04, 2023 s ees SK Melanie Negro MD [id number],C, N o recurrence Joseph Guy NP [id number],C, n ormal device function. U ses compression stockings. Hiramsanaz Brooks WAGNER [id number],C, L ast device check 06/22/23. Normal device function. Joseph Guy NP [id number],C, T he patient is using CPAP on a regular basis. The patient has been benefiting from therapy and should continue use. Joseph Guy NP [id number],C, B P today: 94/69 P rior BP: 132/80 (06/01/2023) Labs Reviewed: C reat: 0.86 (11/03/2017) C hol: 191 (11/03/2017) HDL: 37 (11/03/2017) Her updated medication list for this problem includes: Metoprolol Succinate 25 Mg Tablet Extended Release 24 Hr (Metoprolol succinate) ..... Take 1 tablet by mouth once a day Hiramsanaz Brooks WAGNER [id number],C, S he is s/p ablation on 06/14. S he is on BB and Flecainide Joseph Guy NP [id number],W,Dual chamber PPM in place Zulma Ventimiglia [facility] [id number],C,T he patient is using CPAP on a regular basis. The patient has been benefiting from therapy and should continue use. Zulma Ventimiglia [facility] [id number],W,N oted on last in office device check. S he remains on BB and flecainide C ontinues to be symptomatic W ill plan ablation as noted above H er updated medication list for this problem includes: Flecainide 100 Mg Tablet (Flecainide) ..... Take 1 tablet by mouth twice a day take 1 tablet twice a day. start taking tuesday 07/24 Metoprolol Succinate 25 Mg Tablet Extended Release 24 Hr (Metoprolol succinate) ..... Take 1 tablet by mouth once a day Zulma العراقي [facility] [id number],W,P atient has had recurrent episodes of syncope associated with dizziness and palpitations. P revious device check in office showed episode of SVT rate up to 200 bpm S he has delta wave noted on EKG today and concern for accessory pathway. S he would benefit from ablation and will arrange H er updated medication list f [id number]|2025-01-30 09:22:00|2025-01-30 09:21:00|XMS_ITS|BKG DAEMON|External Medical Summaries|[id number]|" Encounter Summary Created on: January 30, 2025 Lizeth Velasco : 1990 Sex: Female Author Organization [facility] Address [address] [place] [address] Phone Care Team Providers Care Computer Systems Administrator Name Role Phone Manoj Sanchez MD Primary Care Provider Manoj Sanchez MD Primary Care Provider [phone] Linda Santacruz MD Primary Care Provider Alberta Bernardo PT Unavailable [phone] Darlene Sanchez MD Primary Care Provider Opal Jensen PT Unavailable Unavailable Delilah Yanez MD Unavailable [phone] Encounter Details Date Type Department Care Team (Late st Contact Info) Description 12/05/2016 Orders Only [facility] Provider, MD Gin [address] [place] [address] Social History Tobacco Use Types Packs/Day Years Used Date Smoking Tobacco: Never Alcohol Use Standard Drinks/Week Comments No 0 (1 standard drink = 0.6 oz pur e alcohol) Comments Unknown Sex and Gender Information Value Date Recorded Sex Assigned at Not on file Legal Sex Female 1:24 AM CONSUMER PRODUCT ADVISOR Gender Identity Female 01/27/2023 11:59 AM CDT Sexual Orientation Not on file documented as of this encounter Plan of Treatment Not on file documented as of this encounter Procedures Procedure Name Priority Date/Time Associated Diagnosis Comments CARDIOLOGY REPORT 12/05/2016 CARDIOLOGY REPORT 12/05/2016 documented in this encounter Results * CARDIOLOGY REPORT (12/05/2016) Anatomical Region Laterality Modality Other Narrative 12/05/2016 Ordered by an unspecified provider. Historical Provider CV CARDIAC SERVICES PROCE DURES Final Result * CARDIOLOGY REPORT (12/05/2016) Anatomical Region Laterality Modality Other Narrative 12/05/2016 Ordered by an unspecified provider. Historical Provider CV CARDIAC SERVICES PROCE DURES Final Result documented in this encounter Visit Diagnoses Not on filedocumented in this encounter Care Teams Computer Systems Administrator Relationship Specialty Start Date End Date Manoj Sanchez MD [address] [place] [address] PCP - General 12/15/16 09/22/18 Manoj Sanchez MD [address] [place] [address] PCP - General 10/31/16 12/14/16 Linda Santacruz MD [address] [place] [address] PCP - General 09/23/18 07/23/19 [place] [address] [place] [address] PCP - General Internal Medicine 04/25/22 [place] [address] [place] [address] Physical Therapist Physical Therapy 01/18/22 Opal Jensen, PT Physical Therapist Physical Therapy 06/16/22 Delilah Yanez MD [address] [place] [address] Consulting Physician Cardiology 06/15/23 documented as of this encounter "
--- OUTSIDE RECORDS SUMMARY | 2025-01-30 09:22 | XMS_ITS | Encounter Summary ---
Author Organization [facility] Address [address] [place] [address] Care Team Providers Care Heat Treat Supervisor Name Role Phone Brenna Fox RN Unavailable [phone] Nely Castro MD Primary Care Provider [phone] Manoj Obregon MD Primary Care Provider [phone] Elvira Jain LOG CARRIER OPERATOR-[facility] Unavailable None, Physician Primary Care Provider Unavailabl e Reason for Visit * Reason Onset Date Comments Patient Requested Call 11/20/2018 Encounter Details Date Type Department Care Team (Late st Contact Info) Description 11/20/2018 Telephone [facility] MATERNAL/ EVALUATION UNIT [address] [place] [address] [address] [place] [address] Rupa Humphrey, RN Patient Requested Call Social History Tobacco Use Types Packs/Day Years Used Date Smoking Tobacco: Never Smokeless Tobacco: Never Alcohol Use Standard Drinks/Week Comments No 0 (1 standard drink = 0.6 oz pur e alcohol) Comments Yes Sex and Gender Information Value Date Recorded Sex Assigned at Female 01/27/2025 4:39 PM CDT Legal Sex Female 9:20 AM SERVICE STATION CONSOLE OPERATOR Gender Identity Not on file Sexual Orientation Not on file documented as of this encounter Functional Status * Is person deaf or have serious hearing difficulty? Answer Date of Assessment Author No 04/01/2015 1:48 PM CDT Wm Barrientos RN * Is person blind or have serious difficulty seeing? Answer Date of Assessment Author No 04/01/2015 1:48 PM CDT Wm Barrientos RN * Does person have serious difficulty walking/climbing stairs? Answer Date of Assessment Author No 04/01/2015 1:48 PM CDT Wm Barrientos RN * Does person have difficulty dressing/bathing? Answer Date of Assessment Author No 04/01/2015 1:48 PM CDT Wm Barrientos RN * Does person have difficulty doing errands alone? Answer Date of Assessment Author No 04/01/2015 1:48 PM CDT Wm Barrientos RN documented as of this encounter Mental Status * Does person have difficulty concentrating/remembering/making decisions? Answer Entry Date Author No 04/01/2015 1:48 PM ROBINT Wm Barrientos RN documented in this encounter Miscellaneous Notes * Telephone Encounter - Rupa Grijalva RN - 11/20/2018 10:33 AM CST Pt called with complaints of severe chest pain and tightening, back/abdominal tightness described as mild ctx, SOB and difficulty swallowing. Reports decreased FM. RN stressed urgency in [facility] especially with cardiac hx. Pt stated she lives more than an hour away and will report to the nearest ED immediately and has a ride there. ICE STATION CONSOLE OPERATOR documented in this encounter Plan of Treatment Upcoming Encounters Date Type Department Care Team (Late st Contact Info) Description 03/24/2025 1:00 AM CDT Clinical Support [facility] - Cardiology [address] [facility] [place] [address] 04/29/2025 8:50 AM CDT Office Visit [facility] - Dermatology [address] [facility], [place] [phone] Sheryl Vazquez MD [address] [facility] 3L [place] [address] 06/23/2025 1:00 AM CDT Clinical Support [facility] - Cardiology [address] [facility] [place] [address] [place] [phone] 08/04/2025 1:40 PM SERVICE STATION CONSOLE OPERATOR Office Visit [facility] - Cardiology [address] [facility] [place] [address] [place] [phone] Ana Niño MD [address] [place] [address] 09/22/2025 1:00 AM SERVICE STATION CONSOLE OPERATOR Clinical Support [facility] - Cardiology [address] [facility] [place] [address] [place] [phone] documented as of this encounter Visit Diagnoses Not on filedocumented in this encounter Care Teams Heat Treat Supervisor Relationship Specialty Start Date End Date Nely Castro MD [address] [place] [phone] PCP - General 11/01/18 12/04/19 Manoj Obregon MD [address] [place] [address] PCP - General 12/05/19 12/25/24 Elvira Jain, LOG CARRIER OPERATOR-[employer] CREW MEMBER [address] [place] [address] PCP - Attributed-Cm Medicaid SOIL 05/18/21 02/28/23 None, Physician PCP - General 12/26/24 Brenna Fox, RN [address] [facility] [address] [place] [address] Pile Driving Superintendent 03/30/15 documented as of this encounter
--- OUTSIDE RECORDS SUMMARY | 2025-01-30 09:22 | XMS_ITS | Encounter Summary ---
Author Organization [facility] Address [address] [place] [address] Phone Care Team Providers Care Enterprise Business Architect Name Role Phone Manoj Obregon MD Primary Care Provider [phone] Manoj Obregon MD Primary Care Provider [phone] Manoj Obregon MD Primary Care Provider [phone] Manoj Obregon MD Primary Care Provider [phone] Manoj Obregon MD Primary Care Provider [phone] Linda Santacruz MD Primary Care Provider [phone] Alberta Bernardo PT Unavailable Darlene Obregon MD Primary Care Provider Opal Jensen PT Unavailable Unavailable Delilah Yanez MD Unavailable [phone] Encounter Details Date Type Department Care Team (Late st Contact Info) Description 01/31/2016 Orders Only [facility] Provider, MD Gin [address] [place] [address] Social History Tobacco Use Types Packs/Day Years Used Date Smoking Tobacco: Never Alcohol Use Standard Drinks/Week Comments No 0 (1 standard drink = 0.6 oz pur e alcohol) Comments Unknown Sex and Gender Information Value Date Recorded Sex Assigned at Not on file Legal Sex Female 1:24 AM BOBBIN DRIER Gender Identity Female 01/27/2023 11:59 AM CDT Sexual Orientation Not on file documented as of this encounter Plan of Treatment Not on file documented as of this encounter Procedures Procedure Name Priority Date/Time Associated Diagnosis Comments CARDIOLOGY REPORT 01/31/2016 CARDIOLOGY REPORT 01/31/2016 documented in this encounter Results * CARDIOLOGY REPORT (01/31/2016) Anatomical Region Laterality Modality Other Narrative 01/31/2016 Ordered by an unspecified provider. us Historical Provider CV CARDIAC SERVICES PROCE DURES Final Result * CARDIOLOGY REPORT (01/31/2016) Anatomical Region Laterality Modality Other Narrative 01/31/2016 Ordered by an unspecified provider. us Historical Provider CV CARDIAC SERVICES PROCE DURES Final Result documented in this encounter Visit Diagnoses Not on filedocumented in this encounter Care Teams Enterprise Business Architect Relationship Specialty Start Date End Date Manoj Obregon MD [address] [place] [address] PCP - General 12/15/16 09/22/18 Manoj Obregon MD [address] [place] [address] PCP - General 10/31/16 12/14/16 Manoj Obregon MD [address] [place] [facility] [place] [id number] PCP - General 10/29/16 10/30/16 Manoj Obregon MD [address] [facility] [place] [id number] PCP - General 02/15/16 10/28/16 Manoj Obregon MD [address] [place] [address] PCP - General 12/24/15 02/14/16 Linda Santacruz MD [address] [place] [address] PCP - General 09/23/18 07/23/19 [place] [address] [place] [address] PCP - General Internal Medicine 04/25/22 [place] [address] [place] [address] Physical Therapist Physical Therapy 01/18/22 Opal Jensen, PT Physical Therapist Physical Therapy 06/16/22 Delilah Yanez MD [address] [place] [address] Consulting Physician Cardiology 06/15/23 documented as of this encounter
--- OUTSIDE RECORDS SUMMARY | 2025-01-30 09:22 | XMS_ITS | Encounter Summary ---
Author Organization [facility] Address [address] [place] [address] Care Team Providers Care English Instructor Name Role Phone Brenna Fox RN Unavailable [phone] Nely Castro MD Primary Care Provider [phone] Manoj Obregon MD Primary Care Provider [phone] Elvira Jain BULK TRUCK DRIVER-[facility] Unavailable None, Physician Primary Care Provider Unavailabl e Reason for Visit * Reason Onset Date Comments Patient Requested Call 11/21/2018 Encounter Details Date Type Department Care Team (Late st Contact Info) Description 11/21/2018 Telephone [facility] MATERNAL/ EVALUATION UNIT [address] [place] [address] [address] [place] [address] Rupa Humphrey, RN Patient Requested Call Social History Tobacco Use Types Packs/Day Years Used Date Smoking Tobacco: Never Smokeless Tobacco: Never Alcohol Use Standard Drinks/Week Comments No 0 (1 standard drink = 0.6 oz pur e alcohol) Comments Yes Sex and Gender Information Value Date Recorded Sex Assigned at Female 01/27/2025 4:39 PM CDT Legal Sex Female 9:20 AM CRTTS Gender Identity Not on file Sexual Orientation [...] of Assessment Author No 04/01/2015 1:48 PM ROBINT Wm Barrientos RN documented as of this encounter Mental Status * Does person have difficulty concentrating/remembering/making decisions? Answer Entry Date Author No 04/01/2015 1:48 PM ROBINT Wm Barrientos RN documented in this encounter Miscellaneous Notes * Telephone Encounter - Rupa Grijalva RN - 11/21/2018 8:33 AM CST Pt called with complaints of exhaustion, weakness, can't get off the couch . Pt reports not being able to eat since Sunday (3/) due to excess vomiting (x8). Pt reports that she went to two ED's yesterday for complaints of chest pain, ctx 2x/hr, SOB and was dx with a UTI. Pt has been unable to take abx needed for tx of UTI d/t vomiting. Pt states before I got the antibiotics for UTI yesterday my pee was orange ... I didn't receive any fluids or IV yesterday . Pt was told the SVE yesterday was2/70. D/w Dr. Locke, pt to come to [facility] if chest pain and vomiting persist. PO hydration encouraged.Discussed plan with pt, pt agreed to return to [facility] if vomiting persists or chest pain returns. S documented in this encounter Plan of Treatment Upcoming Encounters Date Type Department Care Team (Late st Contact Info) Description 03/24/2025 1:00 AM CDT Clinical Support [facility] - Cardiology [address] [facility], [address] [address] 04/29/2025 8:50 AM CDT Office Visit [facility] - Dermatology [address] [facility], [place] [address] Sheryl Vazquez MD [address] [facility] 3L DEPT [place] [address] 06/23/2025 1:00 AM CDT Clinical Support [facility] [address] [phone] 08/04/2025 1:40 PM CRTTS Office Visit [facility] - Cardiology [address] [phone] Ana Niño MD [address] [place] [address] 09/22/2025 1:00 AM CRTTS Clinical Support [facility] - Cardiology [address] [phone] documented as of this encounter Visit Diagnoses Not on filedocumented in this encounter Care Teams English Instructor Relationship Specialty Start Date End Date Nely Castro MD [address] [place] [phone] PCP - General 11/01/18 12/04/19 Manoj Obregon MD [address] [place] [address] PCP - General 12/05/19 12/25/24 Elvira Jain, BULK TRUCK DRIVER-SLAT BASKET MAKER [address] [place] [phone] PCP - Attributed-Cm Medicaid SOIL 05/18/21 02/28/23 None, Physician PCP - General 12/26/24 Brenna Fox, RN [address] [facility] [address] [place] [address] 03/30/15 documented as of this encounter
--- OUTSIDE RECORDS SUMMARY | 2025-01-30 09:22 | XMS_ITS | Encounter Summary ---
Author Organization [facility] Address [address] [place] [address] Phone Care Team Providers Care Track Walker Name Role Phone Manoj Obregon MD Primary Care Provider [phone] Linda Santacruz MD Primary Care Provider [phone] Alberta Bernardo PT Unavailable Darlene Obregon MD Primary Care Provider Opal Jensen PT Unavailable Unavailable Delilah Yanez MD Unavailable Encounter Details Date Type Department Care Team (Late st Contact Info) Description 02/06/2017 Orders Only [facility] ProviderGin MD [address] [place] [address] Social History Tobacco Use Types Packs/Day Years Used Date Smoking Tobacco: Never Alcohol Use Standard Drinks/Week Comments No 0 (1 standard drink = 0.6 oz pur e alcohol) Comments Unknown Sex and Gender Information Value Date Recorded Sex Assigned at Not on file Legal Sex Female 1:24 AM RESTORATION OFFICER Gender Identity Female 01/27/2023 11:59 AM CDT Sexual Orientation Not on file documented as of this encounter Plan of Treatment Not on file documented as of this encounter Procedures Procedure Name Priority Date/Time Associated Diagnosis Comments CARDIOLOGY REPORT 02/06/2017 CARDIOLOGY REPORT 02/06/2017 documented in this encounter Results * CARDIOLOGY REPORT (02/06/2017) Anatomical Region Laterality Modality Other Narrative 02/06/2017 Ordered by an unspecified provider. us Historical Provider CV CARDIAC SERVICES PROCE DURES Final Result * CARDIOLOGY REPORT (02/06/2017) Anatomical Region Laterality Modality Other Narrative 02/06/2017 Ordered by an unspecified provider. us Historical Provider CV CARDIAC SERVICES PROCE DURES Final Result documented in this encounter Visit Diagnoses Not on filedocumented in this encounter Care Teams Track Walker Relationship Specialty Start Date End Date Manoj Obregon MD [address] [place] [address] PCP - General 12/15/16 09/22/18 Linda Santacruz MD [address] [place] [address] PCP - General 09/23/18 07/23/19 [place] [address] [place] [address] PCP - General Internal Medicine 04/25/22 [place] [address] [place] [address] Physical Therapist Physical Therapy 01/18/22 Opal Jensen, PT Physical Therapist Physical Therapy 06/16/22 Delilah Yanez MD [address] [facility] [place] [address] Consulting Physician Cardiology 06/15/23 documented as of this encounter
--- OUTSIDE RECORDS SUMMARY | 2025-01-30 09:22 | XMS_ITS | Encounter Summary ---
Author Organization [facility] Address [address] [place] [address] Phone Care Team Providers Care Data Operations Manager Name Role Phone Manoj Obregon MD Primary Care Provider [phone] Manoj Obregon MD Primary Care Provider [phone] Manoj Obregon MD Primary Care Provider [phone] Manoj Obregon MD Primary Care Provider [phone] Linda Santacruz MD Primary Care Provider [phone] Alberta Bernardo PT Unavailable [phone] Darlene Obregon MD Primary Care Provider [phone] Opal Jensen PT Unavailable Unavailable Delilah Yanez MD Unavailable [phone] Encounter Details Date Type Department Care Team (Late st Contact Info) Description 03/30/2016 Orders Only [facility] Provider, MD Gin [address] [place] [address] Social History Tobacco Use Types Packs/Day Years Used Date Smoking Tobacco: Never Alcohol Use Standard Drinks/Week Comments No 0 (1 standard drink = 0.6 oz pur e alcohol) Comments Unknown Sex and Gender Information Value Date Recorded Sex Assigned at Not on file Legal Sex Female 1:24 AM COMMERCIAL LINES ACCOUNT MANAGER Gender Identity Female 01/27/2023 11:59 AM CDT Sexual Orientation Not on file documented as of this encounter Plan of Treatment Not on file documented as of this encounter Procedures Procedure Name Priority Date/Time Associated Diagnosis Comments CARDIOLOGY REPORT 03/30/2016 CARDIOLOGY REPORT 03/30/2016 CARDIOLOGY REPORT 03/30/2016 CARDIOLOGY REPORT 03/30/2016 documented in this encounter Results * CARDIOLOGY REPORT (03/30/2016) Anatomical Region Laterality Modality Other Narrative 03/30/2016 Ordered by an unspecified provider. [facility] Provider CV CARDIAC SERVICES PROCE DURES Final Result * CARDIOLOGY REPORT (03/30/2016) Anatomical Region Laterality Modality Other Narrative 03/30/2016 Ordered by an unspecified provider. [facility] Provider CV CARDIAC SERVICES PROCE DURES Final Result * CARDIOLOGY REPORT (03/30/2016) Anatomical Region Laterality Modality Other Narrative 03/30/2016 Ordered by an unspecified provider. [facility] Provider CV CARDIAC SERVICES PROCE DURES Final Result * CARDIOLOGY REPORT (03/30/2016) Anatomical Region Laterality Modality Other Narrative 03/30/2016 Ordered by an unspecified provider. [facility] Provider CV CARDIAC SERVICES PROCE DURES Final Result documented in this encounter Visit Diagnoses Not on filedocumented in this encounter Care Teams Data Operations Manager Relationship Specialty Start Date End Date Manoj Obregon MD [address] [place] [address] PCP - General 12/15/16 09/22/18 Manoj Obregon MD [address] [place] [address] PCP - General 10/31/16 12/14/16 Manoj Obregon MD [address] [place] [address] PCP - General 10/29/16 10/30/16 Manoj Obregon MD [address] [place] [address] PCP - General 02/15/16 10/28/16 Linda Santacruz MD [address] [place], [place] [id number] PCP - General 09/23/18 07/23/19 [place] [address] [place] [address] PCP - General Internal Medicine 04/25/22 [place] [address] [place] [address] Physical Therapist Physical Therapy 01/18/22 Opal Jensen, PT Physical Therapist Physical Therapy 06/16/22 Delilah Yanez MD [address] [place] [address] Consulting Physician Cardiology 06/15/23 documented as of this encounter
--- OUTSIDE RECORDS SUMMARY | 2025-01-30 09:23 | XMS_ITS | Encounter Summary ---
Author Organization [facility] Address [address] [place] [address] Phone Care Team Providers Care Inking Machine Tender Name Role Phone Manoj Obregon MD Primary Care Provider [phone] Manoj Obregon MD Primary Care Provider [phone] Manoj Obregon MD Primary Care Provider [phone] Manoj Obregon MD Primary Care Provider [phone] Manoj Obregon MD Primary Care Provider [phone] Manoj Obregon MD Primary Care Provider [phone] Manoj Obregon MD Primary Care Provider [phone] Manoj Obregon MD Primary Care Provider [phone] Linda Santacruz MD Primary Care Provider [phone] Alberta Bernardo PT Unavailable [phone] Darlene Obregon MD Primary Care Provider Opal Jensen PT Unavailable Unavailable Delilah Yanez MD Unavailable [phone] Encounter Details Date Type Department Care Team (Late st Contact Info) Description 05/05/2014 Orders Only [facility] Provider, MD Gin [address] [place] [address] Social History Tobacco Use Types Packs/Day Years Used Date Smoking Tobacco: Never Assessed Comments Unknown Sex and Gender Information Value Date Recorded Sex Assigned at Not on file Legal Sex Female 1:24 AM MUCK FARMER Gender Identity Female 01/27/2023 11:59 AM CDT Sexual Orientation Not on file documented as of this encounter Plan of Treatment Not on file documented as of this encounter Procedures Procedure Name Priority Date/Time Associated Diagnosis Comments CARDIOLOGY REPORT 05/05/2014 documented in this encounter Results * CARDIOLOGY REPORT (05/05/2014) Anatomical Region Laterality Modality Other Narrative 05/05/2014 Ordered by an unspecified provider. us Historical Provider [facility] Final Result documented in this encounter Visit Diagnoses Not on filedocumented in this encounter Care Teams Inking Machine Tender Relationship Specialty Start Date End Date Manoj Obregon MD [address] [place] [address] PCP - General 12/15/16 09/22/18 Manoj Obregon MD [address] [place] [address] PCP - General 10/31/16 12/14/16 Manoj Obregon MD [address] [place] [address] PCP - General 10/29/16 10/30/16 Manoj Obregon MD [address] [place] [address] PCP - General 02/15/16 10/28/16 Manoj Obregon MD [address] [place] [address] PCP - General 12/24/15 02/14/16 Manoj Obregon MD [address] [place] [address] PCP - General 03/02/15 12/23/15 Manoj Obregon MD [address] [place], [place] [id number] PCP - General 01/14/15 03/01/15 Manoj Obregon MD [address] [place] [address] PCP - General 01/24/12 01/13/15 Linda Santacruz MD [address] [place] [address] PCP - General 09/23/18 07/23/19 [place] [address] [place] [address] PCP - General Internal Medicine 04/25/22 [place] [address] [place] [address] Physical Therapist Physical Therapy 01/18/22 Opal Jensen, PT Physical Therapist Physical Therapy 06/16/22 Delilah Yanez MD [address] [place] [address] Consulting Physician Cardiology 06/15/23 documented as of this encounter
--- OUTSIDE RECORDS SUMMARY | 2025-01-30 09:23 | XMS_ITS | Referral Summary ---
Author Organization [facility] Address [address] [place] [address] Care Team Providers Care Medical Technical Writer Name Role Phone Bernardo, Alberta All PT Unavailable [phone] Darlene Obregon MD Primary Care Provider [phone] Opal Jensen PT Unavailable Unavailable Delilah Yanez MD Unavailable [phone] Encounters Date Type Department Care Team Description 01/18/2025 11:17 AM CDT - 01/18/2025 11:59 PM CDT Hospital Encounter [facility] Emergency, Room R Discharge Disposition: Discharge to home or self care 01/10/2025 3:23 PM CDT - 01/10/2025 11:59 PM CDT Hospital Encounter [facility] Emergency, Room R Discharge Disposition: Discharge to home or self care 12/12/2024 8:26 AM CDT - 12/12/2024 11:59 PM CDT Hospital Encounter [facility] Emergency, Room R Discharge Disposition: Discharge to home or self care from Last 3 Months Allergies Active Allergy Reactions Criticality Noted Date Comments Adhesive Itching Medium 07/12/2023 Carbamazepine Hallucinations High 11/01/2019 Lacosamide Rash Medium 11/13/2015 Lorazepam Rash Medium 03/29/2015 Paroxetine Itching,Rash Medium 03/29/2015 Ceftriaxone Urticaria Medium 12/16/2021 Medications ARIPiprazole (ABILIFY) 2 mg tablet Take 7.5 mg by mouth daily 02/01/2022 Active metoprolol XL (TOPROL-XL) 25 mg extended release tablet Take 1 tablet (25 mg total) by mouth daily 03/16/2022 Active albuterol HFA (PROVENTIL HFA,VENTOLIN HFA,PROAIR HFA) 90 mcg/actuation inhaler Inhale 2 puffs every 6 (six) hours as needed for wheezing Active flecainide (TAMBOCOR) 100 mg tablet TAKE 1 TABLET BY MOUTH TWICE A DAY START TAKING Tuesday 07/2410/16/2022 Active magnesium oxide (MAG-OX) 400 mg (241.3 mg elemental magnesium) tablet Take 1 tablet (400 mg total) by mouth 2 (two) times a day 03/09/2023 Active buPROPion XL (WELLBUTRIN XL) 300 mg 24 hr tablet Take 1 tablet (300 mg total) by mouth daily Active busPIRone (BUSPAR) 10 mg tablet Take 1 tablet (10 mg total) by mouth 2 (two) times a day 01/07/2024 Active Symbicort 80-4.5 mcg/actuation inhaler Inhale 2 puffs 2 (two) times a day 02/05/2024 Active clobetasoL (TEMOVATE) 0.05 % external solution APPLY TO SCALP 1-2 TIMES DAILY NEEDED. 30 DAYS SUPPLY. Active topiramate (TOPAMAX) 50 mg tablet Take one tablet po twice a day 60 tablet 11 04/02/2024 Active Active Problems Problem Noted Date Diagnosed Date Chronic migraine without aur a without status migrainosus, not intractable 09/23/2023 S/P ablation of atrial fibrillation 06/14/2023 SVT (supraventricular tachycardia) 06/08/2023 Psychophysiological insomnia 01/23/2023 Assessment & Plan (01/23/2023 12:05 PM CDT): This is a 32 year old female with acute onset insomnia for the past 7-10 days. She has a longstanding history of anxiety and depression. She has perception of very little sleep. Watches the clock all night. She has an appointment with her psychiatrist tomorrow. Recommend she continue with therapy, suspect psychophysiological etiology. We discussed addition of amitriptyline but would defer this decision to psychiatry as she is on multiple mood stabilizing medications. Nasal congestion 07/17/2022 Assessment & Plan (07/17/2022 9:09 AM CDT): Nasal saline spray (Simply saline, Little Remedies, [place], [place]) 2 second sprays or 2 squeezes into each nostril while looking down over the sink, do not need to sniff in. Followed by Flonase 2 sprays into each nostril while looking down over the sink, do not sniff in or blow nose after use for at least 30 minutes daily 30-60 minutes before using CPAP Laryngeal spasm 07/17/2022 Assessment & Plan (10/27/2022 10:05 AM ASSOCIATE MATERIAL HANDLER): Omeprazole 40 in the morning 30-60 minutes before a meal Continue Pepcid at bedtime Continue CPAP, Continue Flonase in the evening Laryngopharyngeal reflux discussed and Handout provided Assessment & Plan (07/17/2022 9:09 AM CDT): Nasal saline spray (Simply saline, Little Remedies, [place], [place]) 2 second sprays or 2 squeezes into each nostril while looking down over the sink, do not need to sniff in. Followed by Flonase 2 sprays into each nostril while looking down over the sink, do not sniff in or blow nose after use for at least 30 minutes daily 30-60 minutes before using CPAP Pepcid 40 mg at bedtime Leave Tonsillectomy and Adenoidectomy as last resort LPR discussed and Handout provided Recurrent UTI 03/03/2022 Morbid obesity with BMI of 45.0-49.9, adult 01/16 Assessment & Plan (02/03/2021 11:25 AM CDT): Given her young age, comorbidities and obesity she would be a good candidate for weight loss surgery. Given her reflux disease I favor the bypass would be a better option for the patient. Also given her syncopal episodes, bradycardia that is required a pacemaker, I favor her surgery be done at a higher acuity facility. I am going to make a referral down [facility] for further evaluation. She is in understanding. Restless leg syndrome 09/28/2020 Overview (01/23/2023): Continue requip 0.25mg nightly Assessment & Plan (01/23/2023 12:09 PM CDT): Continue requip 0.25mg nightly Localized edema 05/28/2020 Anxiety 01/26/2020 Overview (09/27/2020): Last Assessment & Plan: Condition: stable Pt [...] Follow up in: three months with PCP Mild intermittent asthma 11/18/2018 Cardiac condition complicating , antepa rtum 10/24/2018 Cardiac pacemaker 08/01/2018 History of pseudoseizure 08/01/2018 Psoriasis 08/01/2018 Sick sinus syndrome 08/01/2018 Ventricular tachycardia, nonsustained 06/28/2018 Depression 05/30/2018 Moderate obstructive sleep apnea 11/02/2017 Assessment & Plan (01/23/2023 12:08 PM CDT): Educated on continued CPAP compliance Encounter for contraceptive management 7 Psychogenic nonepileptic seizure 03/30/2017 Bacterial vaginosis 02/27/2017 Seizure disorder 01/09/2017 Pyuria 12/12/2016 High-risk 11/28/2016 08/29/2016 Numbness of extremity 12/24/2015 Overview (12/22/2016): Numbness of limbs Seizure undetermined whether focal or generalize d 09/24/2015 Overview (12/22/2016): Seizure undetermined whether focal or generalized Bradycardia 08/19/2014 Asystole 08/19/2014 Syncope 08/19/2014 Postural orthostatic tachycardia syndrome 2013 Obesity 03/19/2013 Vasovagal syncope 07/25/2012 Immunizations Immunization Administration Dates Next Due Influenza, Quadrivalent, Spl it, Preservative Free, Intramuscular 08/29/2016 Social History Tobacco Use Types Packs/Day Years Used Date Smoking Tobacco: Never Smokeless Tobacco: Never Alcohol Use Standard Drinks/Week Comments No 0 (1 standard drink = 0.6 oz pur e alcohol) AUDIT-C Answer Date Recorded Q1: How often do you have a drink containing alc ohol? Never 03/03/2022 Average Number of Drinks Not on file 022 Frequency of Binge Drinking Not on file 02/15 Personal Safety Answer Date Recorded Have you ever been in or are you currently in a harmful physical or emotional relationship or is someone making you feel afraid or unsafe? Denies 04/07/2024 Comments No Sex and Gender Information Value Date Recorded Sex Assigned at Not on file Legal Sex Female 1:24 AM ASSOCIATE MATERIAL HANDLER Gender Identity Female 01/27/2023 11:59 AM CDT Sexual Orientation Not on file Occupation Industry Job Start Date Job End Date N/A Not on file Not on file Not on file Last Filed Vital Signs Vital Sign Reading Time Taken Comments Blood Pressure 121/65 04/07/2024 10:30 AM CDT Pulse 72 04/07/2024 10:30 AM CDT Temperature 36.7 C (98 F) 04/07/2024 10:30 AM CDT Respiratory Rate 15 04/07/2024 10:30 AM CDT Oxygen Saturation 99% 04/07/2024 10:30 AM CDT Inhaled Oxygen Concentration - - Weight 135.6 kg (299 lb) 04/07/2024 10:30 AM CDT Height 162.6 cm (5' 4 ) 04/02/2024 8:10 AM CDT Body Mass Index 51.32 04/02/2024 8:10 AM CDT Plan of Treatment Not on file Procedures Procedure Name Priority Date/Time Associated Diagnosis Comments THINPREP WASTE MANAGEMENT ENGINEER PAP (IMAGE GUIDED) LIQUID-BASED PREP Routine 05/24/2018 4:02 PM CDT HEPATITIS C ANTIBODY Routine 05/24/2018 2:41 PM CDT care, subsequent , second trimester with 9 completed weeks gestation from Last 3 Months or Most Recently Relevant to Health Maintenance Results * ThinPrep Gynecologic Pap Test (Image-guided), Liquid-based Preparation (05/24/2018 4:02 PM CDT) Report status [facility]CELED [facility] [place] Comment:Result canceled by t nate ancillary CLINICAL INFORMATION: [facility] LMP [facility] Previous Pap NONE GIVEN [facility] Prev. Bx NONE GIVEN [facility] SOURCE: [facility] Comment:Cervix, Endocervix Pap, specimen adequacy [facility] - Comment: Satisfactory for evaluation. Endocervical/transformation zone component present. Pap, general categorization [facility] Comment:Result canceled by t nate ancillary HPV interp [facility] Comment:Negative for intraep ithelial lesion or malignancy. Infection: [facility]ELED [facility] Comment:Result canceled by t nate ancillary COMMENTS [facility] Comment: This Pap test has been evaluated with computer assisted technology. Group Counselor [facility] - Comment: SANA, CT(ASCP) CT screening location: [place] [address] Administration [place] [address] Review correspondence specialist [facility]ED [facility] [place] Comment:Result canceled by t nate ancillary Pathologist [facility] Comment:Result canceled by t nate ancillary Comment [facility] Comment: EXPLANATORY NOTE: The Pap is a screening test for cervical cancer. It is not a diagnostic test and is subject to false negative and false positive results. It is most reliable when a satisfactory sample, regularly obtained, is submitted with relevant clinical findings and history, and when the Pap result is evaluated along with historic and current clinical information. 05/24/2018 4:02 PM CDT 05/27/2018 7:23 AM CDT Narrative Resulting Agency Comment Performing Organization Information: Site ID: Name: [facility] Address: [facility] Administration [place] [address] Director: Vanessa Lucas us Maricarmen Delaney MD LAB PATHOLOGY ORDERAB LES Final Result [facility] [place], [place] * Hepatitis C antibody (05/24/2018 2:41 PM CDT) Hep C Ab NON-REACTI VE NON-REACTI VE [facility] SIGNAL TO CUT-OFF 0.03 <1.00 [facility] Blood specimen (specimen) 05/24/2018 2:41 PM CDT 05/24/2018 2:46 PM CDT Narrative [facility] - 05/27/2018 11:01 AM CDT FASTING:NO PATIENT UNABLE TO VOID; ADVISED TO RETURN FOR COLLECTION. FASTING: NO Resulting Agency Comment Performing Organization Information: Site ID: [facility] Name: [facility] Address: [address] [address] Director: Andrew James D.O., MPH Maricarmen Delaney MD LAB MICROBIOLOGY - NERAL ORDERABLES Final Result [facility] from Last 3 Months or Most Recently Relevant to Health Maintenance Insurance [facility] Advance Directives For more information, please contact: [phone] * Full Code (Latest Code Status on File) Date Activated Date Inactivated Comments 2019 2:29 PM 2019 7:44 PM Care Teams Medical Technical Writer Relationship Specialty Start [place] [address] [place] [id number] PCP - General Internal Medicine 04/25/22 [place] [address] [place] [address] Physical Therapist Physical Therapy 01/18/22 Opal Jensen, PT Physical Therapist Physical Therapy 06/16/22 Delilah Yanez MD [address] [place] [address] Consulting Physician Cardiology 06/15/23
--- OUTSIDE RECORDS SUMMARY | 2025-01-30 09:23 | XMS_ITS | Encounter Summary ---
Author Organization [facility] Address [address] [place] [address] Phone Care Team Providers Care Trailer Assembler Name Role Phone Manoj Obregon MD Primary Care Provider [phone] Manoj Obregon MD Primary Care Provider [phone] Manoj Obregon MD Primary Care Provider [phone] Manoj Obregon MD Primary Care Provider [phone] Manoj Obregon MD Primary Care Provider [phone] Manoj Obregon MD Primary Care Provider [phone] Manoj Obregon MD Primary Care Provider [phone] Manoj Obregon MD Primary Care Provider [phone] Linda Santacruz MD Primary Care Provider [phone] Alberta Bernardo PT Unavailable [phone] Darlene Obregon MD Primary Care Provider Opal Jensen PT Unavailable Unavailable Delilah Yanez MD Unavailable [phone] Encounter Details Date Type Department Care Team (Late st Contact Info) Description 04/10/2014 Orders Only [facility] Provider, MD Gin [address] [place] [address] Social History Tobacco Use Types Packs/Day Years Used Date Smoking Tobacco: Never Assessed Comments Unknown Sex and Gender Information Value Date Recorded Sex Assigned at Not on file Legal Sex Female 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 us Historical Provider [facility] DINO PHILLIPS Final Result documented in this encounter Visit Diagnoses Not on filedocumented in this encounter Care Teams Trailer Assembler Relationship Specialty Start Date End Date Manoj Obregon MD [address] [place] [address] PCP - General 12/15/16 09/22/18 Manoj Obregon MD [address] [place] [address] PCP - General 10/31/16 12/14/16 Manoj Obregon MD [address] [place] [address] PCP - General 10/29/16 10/30/16 Manoj Obregon MD [address] [place] [address] PCP - General 02/15/16 10/28/16 Manoj Obregon MD [address] [place] [address] PCP - General 12/24/15 02/14/16 Manoj Obregon MD [address] [place] [address] PCP - General 03/02/15 12/23/15 Manoj Obregon MD [address] [place], [place] [id number] PCP - General 01/14/15 03/01/15 Manoj Obregon MD [address] [place] [address] PCP - General 01/24/12 01/13/15 Linda Santacruz MD [address] [place] [address] PCP - General 09/23/18 07/23/19 [place] [address] [place] [address] PCP - General Internal Medicine 04/25/22 [place] [address] [place] [address] Physical Therapist Physical Therapy 01/18/22 Opal Jensen, PT Physical Therapist Physical Therapy 06/16/22 Delilah Yanez MD [address] [place] [address] Consulting Physician Cardiology 06/15/23 documented as of this encounter
--- OUTSIDE RECORDS SUMMARY | 2025-01-30 09:23 | XMS_ITS | Data Portability ---
Author Organization [facility] Address [address] [place] [address] Care Team Providers Care Videotape Sales Representative Name Role Phone LAURO JONEL Solar Photovoltaic Electrician TIFFANY LARA Application Development Liaison LEA YOUNGER Cans Vacuum Tester [facility] Sleep Medicine ADIN ALANIS Bariatric Surgeon [phone] ALFREDO THEODORE Streaming Media Specialist/Finish Photographer [phone] [facility] Spinal Orthopedic Surgeon MICHOACANO MORGAN Business Supervisor DIPIKA BRYANT Neurologist PAU TELLO Primary Care Provider Assessment Encounter Date Assessment Date Assessment LastModified by Organization Details LastModified Time 01/11/2024 01/11/2024 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 benign discussed nabothian cyst obesity biggest health concern, along with recent cardiac ablation Not available 01/11/2024 11:42:38 05/08/2024 05/08/2024 Follow-up as needed [email or web address] Not available 05/14/2024 09:36:32 Plan of Treatment Reminders Order Date Submit Date Provider Last Modified By Organization Details Last Modified Time Details Appointments NEW PATIENT 15 2024 02:00P M Arnoldo Dennison MD Not available Not available Not available Lab CMP, serum or plasma 2024 025 DARA [facility], [address] [place] [address], [place], [address], 01/03/2025 09:28:06 urinalys is, dipstick 2024 025 [email or web address] In-Office Order, Internal Use Only DO Not Attach Compendium DO Not Attach Compendium, Do Not Delete/merge, [id number] 01/02/2025 16:48:43 TSH, ultra-se nsitive, serum 2024 025 [email or web address] [facility], [address], [address], [place], [address], 01/19/2025 15:53:10 HbA1c (hemoglo bin A1c), blood 2024 025 [email or web address] [facility], [address], [address], [place], [address], 01/19/2025 15:53:10 lipid panel, serum 2023 024 DARA [facility], [address], [address], [place], [address], 02/06/2024 11:14:14 CBC 2023 024 DARA [facility], [address], [place], [address], 02/06/2024 11:14:17 TSH, ultra-se nsitive, serum 2023 024 DARA [facility], [address], [place], [address], 02/06/2024 11:14:16 HbA1c (hemoglo bin A1c), blood 2023 024 [email or web address] In-Office Order, Internal Use Only DO Not Attach Compendium DO Not Attach Compendium, Do Not Delete/merge, [id number] 02/05/2024 15:12:42 cytology report, thin prep, smear or scraping , cervical or vaginal 2023 024 [facility], [address], [place], [address], 01/16/2024 11:14:55 Referral general surgeon referral - Chronic external hemorrho ids x5 years. Not acutely inflamme d or bleeding . 2023 024 DARA Pruitt MD, [address] [facility], [address], [place], [address], 05/26/2024 12:29:48 Procedures None recorded . Surgeries None recorded . Imaging None recorded . Medication Orders ondanset manfred 4 mg disinteg rating tablet 2024 025 [facility] [address], [address], 01/20/2025 11:06:42 sodium chloride 1,000 mg soluble tablet 2024 025 [facility] [address], [address], 01/20/2025 11:06:37 metoprol ol succinat e ER 25 mg tablet,e xtended release 24 hr 2024 025 [facility] [address], [address], 01/02/2025 11:06:11 midodrin e 2.5 mg tablet 2024 025 [email or web address] [facility] [address], [address], 01/20/2025 10:36:08 omeprazo le 20 mg capsule, delayed release 2023 024 [email or web address] [address], [address], 01/20/2025 11:06:20 Symbicor t 80 mcg-4.5 mcg/actu ation HFA aerosol inhaler 2023 024 [facility] [address] [address] [place] [address] [place], [address], 02/05/2024 15:20:41 Patient TargetsNo targets recorded. Patient Instructions Encounter Date Encounter Id Patient Instructions Last Modified By Organization Details Last Modified Time 01/11/2024 [id number] A healthy lifestyle: care instructions Not available 01/11/2024 11:42:52 02/05/2024 [id number] A healthy lifestyle: care instructions [email or web address] Not available 02/05/2024 14:58:33 On the date of this encounter, I was immediately available to assist the resident/fellow in the care of the patient, and have reviewed and agree with the resident s findings and plan of care. MD Leander [email or web address] Not available 02/12/2024 22:56:04 05/08/2024 [id number] I personally saw and examined the patient with the resident. I agree with the note and plan as documented. Chin Deleon MD. RUST [email or web address] Not available 05/08/2024 18:13:00 01/02/2025 [id number] A healthy lifestyle: care instructions Not available 01/18/2025 22:49:13 I was present in the clinic to discuss this patient at the time of the visit. I agree with the documented assessment and plan Ally Ng MD [email or web address] Not available 01/02/2025 11:23:39 Reason for Referral General Surgeon Referral for External hemorrhoids Chronic external hemorrhoids x5 years. Not acutely inflammed or bleeding. Chronic external hemorrhoids x5 years. Not acutely inflammed or bleeding. Referring Physician: Dipika Aviles, Coil Maker, Encounter Date: 05/08/2024 Physical Therapist Referral for Pain in right lower limb Referring Physician: Waylon Aragon, Family Medicine, Encounter Date: 01/20/2025 Results Created Date Observation Date Name Description Value Unit Range Abnormal Flag Note LastModifiedBy Organization Detail LastModifiedTime 04/26/01/16/2024 IGP, RFX APTIM A HPV ASCU diagnosis: Edi t CLAUS JEFFY FOR INTRA EPITH ELIAL RAÚL Munson OR LEANDRA ZARAGOZA . Not Available [facility] ([facility]) [address], [place], [address], 01/16/2024 11:14:55 01/11/20 24 01/16/2024 IGP, RFX APTIM A HPV ASCU specimen adequacy: Edi t Satis facto ry for evalu ation . Endoc ervic al and/o r squam ous metap lasti c cells (endo cervi belem compo nent) are prese nt. Not Available [facility] ([facility]) [address] [place], [address], 01/16/2024 11:14:55 01/11/20 24 01/16/2024 IGP, RFX APTIM A HPV ASCU clinician provided ICD10: Edi smith Z01.4 19 Not Available [facility] ([facility]) [address] [place], [address], 01/16/2024 11:14:55 01/11/20 24 01/16/2024 IGP, RFX APTIM A HPV ASCU performed by: Edi munson, Ousmane smith (ASCP ) Not Available [facility] ([facility]) [address] [place], [address], 01/16/2024 11:14:55 01/11/20 24 01/16/2024 IGP, RFX APTIM A HPV ASCU . . Not Available [facility] ([facility]) [address] [place], [address], 01/16/2024 11:14:55 01/11/20 24 01/16/2024 IGP, RFX APTIM A HPV ASCU note: Edi t The Pap smear is a scree fiorella test cassidy denny to aid in the detec tion of adonis ligna nt and malig nant condi tions of the uteri ne cervi x. It is not a diagn ostic proce dure and shoul d not be used as the sole means of detec ting cervi belem cance r. Both false -posi tive and false -nega tive repor ts do occur . Not Available [facility] ([facility]) [address] [place], [address], 01/16/2024 11:14:55 01/11/20 24 01/16/2024 IGP, RFX APTIM A HPV ASCU test methodology: Commen t This liqui d based ThinP rep(R ) pap test was doni denny with the use of an image guide ayse randle. Not Available [facility] ([facility]) [address] [place], [address], 01/16/2024 11:14:55 01/11/20 24 01/16/2024 IGP, RFX APTIM A HPV ASCU . Commen t The HPV DNA refle x crite adriel were not met with this speci men resul t there fore, no HPV testi ng was perfo rmed. Not Available [facility] ([facility]) [address] [place], [address], 01/16/2024 11:14:55 02/05/20 24 02/06/2024 LIPID PANEL cholesterol, total 173 mg/dL 100-19 9 Not Available [facility] ([facility]) [address] [place], [address], 02/06/2024 11:14:14 02/05/20 24 02/06/2024 LIPID PANEL triglyceride s 127 mg/dL 0-149 Not Available [facility]) [address] [place], [address], 02/06/2024 11:14:14 02/05/20 24 02/06/2024 LIPID PANEL HDL cholesterol 43 mg/dL >39 Not Available [facility]) [address] [place], [address], 02/06/2024 11:14:14 02/05/20 24 02/06/2024 LIPID PANEL VLDL cholesterol belem 23 mg/dL 5-40 Not Available [facility]) [address] [place], [address], 02/06/2024 11:14:14 02/05/20 24 02/06/2024 LIPID PANEL LDL chol calc ([facility]) 107 mg/dL 0-99 above high normal Not Available [facility] ([facility]) [address] [place], [address], 02/06/2024 11:14:14 02/05/20 24 02/06/2024 TSH RFX ON ABNOR MAL TO FREE T4 TSH 3.180 uIU/m L 0.450- 4.500 Not Available [facility] ([facility]) [address] [place], [address], 02/06/2024 11:14:16 02/05/20 24 02/06/2024 CBC, NO DIFFE RENTI AL/PL ATELE T WBC 7.5 x10e3 /uL 3.4-10 .8 Not Available [facility] ([facility]) [address] [place], [address], 02/06/2024 11:14:17 02/05/20 24 02/06/2024 CBC, NO DIFFE RENTI AL/PL ATELE T RBC 4.32 x10e6 /uL 3.77-5 .28 Not Available [facility] ([facility]) [address] [place], [address], 02/06/2024 11:14:17 02/05/20 24 02/06/2024 CBC, NO DIFFE RENTI AL/PL ATELE T hemoglobin 11.9 g/dL 11.1-1 5.9 Not Available [facility] ([facility]) [address] [place], [address], 02/06/2024 11:14:17 02/05/20 24 02/06/2024 CBC, NO DIFFE RENTI AL/PL ATELE T hematocrit 37.7 % 34.0-4 6.6 Not Available [facility] ([facility]) [address] [place], [address], 02/06/2024 11:14:17 02/05/20 24 02/06/2024 CBC, NO DIFFE RENTI AL/PL ATELE T MCV 87 fL 79-97 Not Available [facility] ([facility]) [address] [place], [address], 02/06/2024 11:14:17 02/05/20 24 02/06/2024 CBC, NO DIFFE RENTI AL/PL ATELE T MCH 27.5 pg 26.6-3 3.0 Not Available [facility] ([facility]) [address], [place], [address], 02/06/2024 11:14:17 02/05/20 24 02/06/2024 CBC, NO DIFFE RENTI AL/PL ATELE T MCHC 31.6 g/dL 31.5-3 5.7 Not Available [facility] ([facility]) [address] [place], [address], 02/06/2024 11:14:17 02/05/20 24 02/06/2024 CBC, NO DIFFE RENTI AL/PL ATELE T RDW 13.5 % 11.7-1 5.4 Not Available [facility] ([facility]) [address] [place], [address], 02/06/2024 11:14:17 02/05/20 24 02/05/2024 HbA1c (hemo globi n A1c), blood HbA1c 5.9 Not Available In-Office Order Internal Use Only DO Not Attach Compendium DO Not Attach Compendium, Do Not Delete/merge, [id number] 02/05/2024 14:58:27 04/23/20 24 04/23/2024 Chori ogona dotro pin.b eta subun it [Unit s/vol ume] in Serum or Plasm a choriogonado tropin.intac t+beta subunit [units/volum e] in serum or plasma text: mIU/mL Beta- hCG Total Quant itati ve <3 mIU/m L 04/23 12:15 PM CDT [facility] Not Available Not Available 12/16/2024 16:47:08 04/23/20 24 04/23/2024 Magne sium [Mass /volu me] in Serum or Plasm a magnesium [mass/volume ] in serum or plasma 2.2 mg/dL low: 1.6mg/ dLhigh : 2.6mg/ dL Magne sium 2.2 1.6 - 2.6 mg/dL 04/23 12:11 PM CDT [facility] Not Available Not Available 12/16/2024 16:47:07 04/23/20 24 04/23/2024 Magne sium [Mass /volu me] in Serum or Plasm a interpretati on and review of laboratory results Normal Not Available Not Available 09/2024 16:47:07 04/23/20 24 04/23/2024 Compr ehens jeffy metab olic 1999 panel - Serum or Plasm a urea nitrogen [mass/volume ] in serum or plasma 12 mg/dL low: 7mg/dL high: 26mg/d L BUN 12 7 - 26 mg/dL 04/23 12:11 PM CDT [facility] Not Available Not Available 12/16/2024 16:47:07 04/23/20 24 04/23/2024 Compr ehens jeffy metab olic 1999 panel - Serum or Plasm a creatinine [mass/volume ] in serum or plasma 1.1 mg/dL low: 0.56mg /dLhig h: 0.96mg /dL high Creat inine 1.10 (H) 0.56 - 0.96 mg/dL 04/23 12:11 PM CDT [facility] Not Available Not Available 12/16/2024 16:47:07 04/23/20 24 04/23/2024 Compr ehens jeffy metab olic 1999 panel - Serum or Plasm a sodium [moles/volum e] in serum or plasma 141 mmol/ L low: 136mmo l/Lhig h: 145mmo l/L Sodiu m 141 136 - 145 mmol/ L 04/23 12:11 PM CDT [facility] Not Available Not Available 12/16/2024 16:47:07 04/23/20 24 04/23/2024 Compr ehens jeffy metab olic 1999 panel - Serum or Plasm a potassium [moles/volum e] in serum or plasma 4.2 mmol/ L low: 3.5mmo l/Lhig h: 4.5mmo l/L Potas sium 4.2 3.5 - 4.5 mmol/ L 04/23 12:11 PM CDT [facility] Not Available Not Available 12/16/2024 16:47:07 04/23/20 24 04/23/2024 Compr ehens jeffy metab olic 1999 panel - Serum or Plasm a chloride [moles/volum e] in serum or plasma 109 mmol/ L low: 98mmol /Lhigh : 107mmo l/L high Chlor lobo 109 (H) 98 - 107 mmol/ L 04/23 12:11 PM CDT [facility] Not Available Not Available 12/16/2024 16:47:07 04/23/20 24 04/23/2024 Compr ehens jeffy metab olic 1999 panel - Serum or Plasm a carbon dioxide, total [moles/volum e] in serum or plasma 25 mmol/ L low: 22mmol /Lhigh : 29mmol /L CO2 25 22 - 29 mmol/ L 04/23 12:11 PM CDT [facility] Not Available Not Available 12/16/2024 16:47:07 04/23/20 24 04/23/2024 Compr ehens jeffy metab olic 2000 panel - Serum or Plasm a glucose [mass/volume ] in serum or plasma 102 mg/dL low: 70mg/d Lhigh: 115mg/ dL Gluco se 102 70 - 115 mg/dL 08/07 /2024 12:11 PM CDT [facility] Not Available Not Available 12/16/2024 16:47:07 04/23/20 24 04/23/2024 Compr paraBebes.comens jeffy metab olic 2000 panel - Serum or Plasm a calcium [moles/volum e] in serum or plasma 9.5 mg/dL low: 8.4mg/ dLhigh : 10.2mg /dL Calci um 9.5 8.4 - 10.2 mg/dL 04/23 12:11 PM CDT [facility] Not Available Not Available 12/16/2024 16:47:07 04/23/20 24 04/23/2024 Compr paraBebes.comens jeffy metab olic 2000 panel - Serum or Plasm a protein [mass/volume ] in serum or plasma 7 g/dL low: 6g/dLh igh: 8.3g/d L Prote in Total 7.0 6.0 - 8.3 g/dL 04/23 12:11 PM CDT [facility] Not Available Not Available 12/16/2024 16:47:07 04/23/20 24 04/23/2024 Compr paraBebes.comens jeffy metab olic 2000 panel - Serum or Plasm a albumin [mass/volume ] in serum or plasma by bromocresol green (bcg) dye binding method 3.3 g/dL low: 3.4g/d Lhigh: 5g/dL low Album in 3.3 (L) 3.4 - 5.0 g/dL 04/23 12:11 PM CDT [facility] Not Available Not Available 12/16/2024 16:47:07 04/23/20 24 04/23/2024 Compr paraBebes.comens jeffy metab olic 2000 panel - Serum or Plasm a bilirubin.to osiris [mass/volume ] in serum or plasma 0.3 mg/dL low: 0.2mg/ dLhigh : 1.2mg/ dL Bilir ubin Total 0.3 0.2 - 1.2 mg/dL 04/23 12:11 PM CDT [facility] Not Available Not Available 12/16/2024 16:47:07 04/23/20 24 04/23/2024 Compr ehens jeffy metab olic 1999 panel - Serum or Plasm a alkaline phosphatase [enzymatic activity/vol ume] in serum or plasma 86 U/L low: 40U/Lh igh: 150U/L Alkal ine Phosp hatas e 86 40 - 150 U/L 04/23 12:11 PM CDT [facility] Not Available Not Available 12/16/2024 16:47:07 04/23/20 24 04/23/2024 Compr ehens jeffy metab olic 1999 panel - Serum or Plasm a alanine aminotransfe rase [enzymatic activity/vol ume] in serum or plasma by no addition of P-5'-P 15 U/L low: 5U/Lhi gh: 55U/L ALT 15 5 - 55 U/L 04/23 12:11 PM CDT [facility] Not Available Not Available 12/16/2024 16:47:07 04/23/20 24 04/23/2024 Compr ehens jeffy metab olic 1999 panel - Serum or Plasm a aspartate aminotransfe rase [enzymatic activity/vol ume] in serum or plasma 15 U/L low: 5U/Lhi gh: 34U/L AST 15 5 - 34 U/L 04/23 12:11 PM CDT [facility] Not Available Not Available 12/16/2024 16:47:07 04/23/20 24 04/23/2024 Compr ehens jeffy metab olic 1999 panel - Serum or Plasm a anion gap 7 low: 6high: 16 Anion Gap 7 6 - 16 04/23 12:11 PM CDT [facility] Not Available Not Available 12/16/2024 16:47:07 04/23/20 24 04/23/2024 Compr ehens jeffy metab olic 1999 panel - Serum or Plasm a urea nitrogen/cre atinine [mass ratio] in serum or plasma 11 low: 7high: 23 BUN/C reati nine Ratio 11 7 - 23 04/23 12:11 PM CDT [facility] Not Available Not Available 12/16/2024 16:47:07 04/23/20 24 04/23/2024 Compr ehens jeffy metab olic 2000 panel - Serum or Plasm a osmolality calculated 292 text: 275 - 295 mOsm/k g Osmol sowmya amador 292 275 - 295 mOsm/ kg 04/23 12:11 PM CDT [facility] [employer] [facility] Not Available Not Available 12/16/2024 16:47:07 04/23/20 24 04/23/2024 Compr ehens jeffy metab olic 2000 panel - Serum or Plasm a albumin/glob ulin ratio 0.9 low: 1.1hig h: 2.3 low Album in/Gl obuli n Ratio 0.9 (L) 1.1 - 2.3 04/23 12:11 PM CDT [facility] [employer] [facility] Not Available Not Available 12/16/2024 16:47:07 04/23/20 24 04/23/2024 Compr ehens jeffy metab olic 2000 panel - Serum or Plasm a glomerular filtration rate [volume rate/area] in serum, plasma or blood by creatinine-b ased formula (CKD-epi)/1. 73 sq M 68 text: >=90 mL/min /1.73 m2 low eGFR by CKD-E PI 68 (L) >=90 mL/mi n/1.7 3 m2 04/23 12:11 PM T [facility] Not Available Not Available 12/16/2024 16:47:07 04/23/20 24 04/23/2024 Compr ehens jeffy metab olic 2000 panel - Serum or Plasm a interpretati on and review of laboratory results Abnorm al Not Available Not Available 16:47:07 04/23/20 24 04/23/2024 CBC W Auto Diffe renti al panel - Blood leukocytes [#/volume] in blood by automated count 7.3 text: 4.0 - 10.7 x10e9/ L WBC 7.3 4.0 - 10.7 x10E9 /L 04/23 11:45 AM CDT [facility] [employer] [facility] Not Available Not Available 12/16/2024 16:47:07 04/23/20 24 04/23/2024 CBC W Auto Diffe renti al panel - Blood erythrocytes [#/volume] in blood by automated count 4.24 text: 3.90 - 5.20 x10e12 /L RBC Count 4.24 3.90 - 5.20 x10E1 2/L 04/23 11:45 AM CDT [facility] [employer] [facility] Not Available Not Available 12/16/2024 16:47:07 04/23/20 24 04/23/2024 CBC W Auto Diffe isaura barriga panel - Blood hemoglobin [mass/volume ] in blood 11.5 g/dL low: 11.9g/ dLhigh : 15.8g/ dL low Hemog lobin 11.5 (L) 11.9 - 15.8 g/dL 04/23 11:45 AM T [facility] [employer] [facility] Not Available Not Available 12/16/2024 16:47:07 04/23/20 24 04/23/2024 CBC W Auto Diffe isaura barriga panel - Blood hematocrit [volume fraction] of blood by automated count 36.7 % low: 34.8%h igh: 46.1% Hemat ocrit 36.7 34.8 - 46.1 % 04/23 11:45 AM [facility] [employer] [facility] Not Available Not Available 12/16/2024 16:47:07 04/23/20 24 04/23/2024 CBC W Auto Diffe isaura barriga panel - Blood MCV [entitic mean volume] in red blood cells by automated count 86.6 fL low: 80fLhi gh: 98fL MCV 86.6 80.0 - 98.0 fL 04/23 11:45 AM [facility] [employer] [facility] Not Available Not Available 12/16/2024 16:47:07 04/23/20 24 04/23/2024 CBC W Auto Diffe isaura al panel - Blood MCH [entitic mass] by automated count 27.1 pg low: 26.7pg high: 33.6pg MCH 27.1 26.7 - 33.6 pg 04/23 11:45 AM [facility] [employer] [facility] Not Available Not Available 12/16/2024 16:47:07 04/23/20 24 04/23/2024 CBC W Auto Diffe isaura al panel - Blood MCHC [entitic mass/volume] in red blood cells by automated count 31.3 g/dL low: 31.7g/ dLhigh : 36.3g/ dL low MCHC 31.3 (L) 31.7 - 36.3 g/dL 04/23 11:45 AM [facility] Not Available Not Available 12/16/2024 16:47:07 04/23/20 24 04/23/2024 CBC W Auto Diffe renti al panel - Blood erythrocyte [distwidth] in red blood cells by automated count 14 % low: 11.3%h igh: 14.8% RDW-C V 14.0 11.3 - 14.8 % 04/23 11:45 AM T [facility] Not Available Not Available 12/16/2024 16:47:07 04/23/20 24 04/23/2024 CBC W Auto Diffe isaura al panel - Blood platelets [#/volume] in blood by automated count 253 text: 150 - 420 x10e9/ L Plate let Count 253 150 - 420 x10E9 /L 04/23 11:45 AM [facility] Not Available Not Available 12/16/2024 16:47:07 04/23/20 24 04/23/2024 CBC W Auto Diffe margaretti al panel - Blood platelet [entitic mean volume] in blood by automated count 9.9 fL low: 7.8fLh igh: 11.4fL MPV 9.9 7.8 - 11.4 fL 04/23 11:45 AM T [facility] [employer] [facility] Not Available Not Available 12/16/2024 16:47:07 04/23/20 24 04/23/2024 CBC W Auto Diffe renti al panel - Blood neutrophils/ leukocytes in blood by automated count 60.1 % low: 41%hig h: 74% Neutr ophil % 60.1 41.0 - 74.0 % 04/23 11:45 AM [facility] [employer] [facility] Not Available Not Available 12/16/2024 16:47:07 04/23/20 24 04/23/2024 CBC W Auto Diffe renti al panel - Blood lymphocytes/ leukocytes in blood by automated count 29.2 % low: 17%hig h: 47% Lymph ocyte % 29.2 17.0 - 47.0 % 04/23 11:45 AM CDT [facility] Not Available Not Available 12/16/2024 16:47:07 04/23/20 24 04/23/2024 CBC W Auto Diffe renti al panel - Blood monocytes/le ukocytes in blood by automated count 5.4 % low: 3%high : 11% Monoc yte % 5.4 3.0 - 11.0 % 04/23 11:45 AM CDT [facility] Not Available Not Available 12/16/2024 16:47:07 04/23/20 24 04/23/2024 CBC W Auto Diffe renti al panel - Blood eosinophils/ leukocytes in blood by automated count 4.8 % low: 0%high : 7% Eosin ophil % 4.8 0.0 - 7.0 % 04/23 11:45 AM CDT [facility] Not Available Not Available 12/16/2024 16:47:07 04/23/20 24 04/23/2024 CBC W Auto Diffe renti al panel - Blood basophils/le ukocytes in blood by automated count 0.4 % low: 0%high : 1.6% Basop hil % 0.4 0.0 - 1.6 % 04/23 11:45 AM CDT [facility] Not Available Not Available 12/16/2024 16:47:07 04/23/20 24 04/23/2024 CBC W Auto Diffe renti al panel - Blood immature granulocytes /leukocytes in blood by automated count 0.1 % low: 0%high : 1% Immat ure Granu locyt es % 0.1 0.0 - 1.0 % 04/23 11:45 AM CDT [facility] Not Available Not Available 12/16/2024 16:47:07 04/23/20 24 04/23/2024 CBC W Auto Diffe renti al panel - Blood neutrophils [#/volume] in blood by automated count 4.41 text: 1.60 - 7.50 x10e9/ L Neutr ophil Absol [place] 4.41 1.60 - 7.50 x10E9 /L 04/23 11:45 AM CDT [facility] Not Available Not Available 12/16/2024 16:47:07 04/23/20 24 04/23/2024 CBC W Auto Diffe renti al panel - Blood lymphocytes [#/volume] in blood by automated count 2.14 text: 1.00 - 4.40 x10e9/ L Lymph ocyte Absol [place] 2.14 1.00 - 4.40 x10E9 /L 04/23 11:45 AM CDT [facility] Not Available Not Available 12/16/2024 16:47:07 04/23/20 24 04/23/2024 CBC W Auto Diffe renti al panel - Blood monocytes [#/volume] in blood by automated count 0.4 text: 0.15 - 1.00 x10e9/ L Monoc yte Absol [place] 0.40 0.15 - 1.00 x10E9 /L 04/23 11:45 AM CDT [facility] Not Available Not Available 12/16/2024 16:47:07 04/23/20 24 04/23/2024 CBC W Auto Diffe renti al panel - Blood eosinophils [#/volume] in blood 0.35 text: 0.00 - 0.60 x10e9/ L Eosin ophil Absol [place] 0.35 0.00 - 0.60 x10E9 /L 04/23 11:45 AM CDT [facility] Not Available Not Available 12/16/2024 16:47:07 04/23/20 24 04/23/2024 CBC W Auto Diffe renti al panel - Blood basophils [#/volume] in blood by automated count 0.03 text: 0.00 - 0.13 x10e9/ L Basop hil Absol [place] 0.03 0.00 - 0.13 x10E9 /L 04/23 11:45 AM CDT [facility] [facility] Not Available Not Available 12/16/2024 16:47:07 04/23/20 24 04/23/2024 CBC W Auto Diffe renti al panel - Blood interpretati on and review of laboratory results Abnorm al Not Available Not Available 16:47:07 04/24/20 24 04/24/2024 Thyro tropi n [Unit s/vol ume] in Serum or Plasm a thyrotropin [units/volum e] in serum or plasma by detection limit <= 0.005 mIU/L 3.566 text: 0.350 - 4.940 uIU/mL TSH 3.566 0.350 - 4.940 uIU/m L 04/24 2:59 AM CDT [facility] Not Available Not Available 12/16/2024 16:47:08 04/24/20 24 04/24/2024 Thyro tropi n [Unit s/vol ume] in Serum or Plasm a interpretati on and review of laboratory results Normal Not Available Not Available 09/2024 16:47:08 04/24/20 24 04/24/2024 CBC panel - Blood by Autom ated count leukocytes [#/volume] in blood by automated count 7.6 text: 4.0 - 10.7 x10e9/ L WBC 7.6 4.0 - 10.7 x10E9 /L 04/24 2:18 AM CDT [facility] [employer] [facility] Not Available Not Available 12/16/2024 16:47:08 04/24/20 24 04/24/2024 CBC panel - Blood by Autom ated count erythrocytes [#/volume] in blood by automated count 4.06 text: 3.90 - 5.20 x10e12 /L RBC Count 4.06 3.90 - 5.20 x10E1 2/L 04/24 2:18 AM CDT [facility] [employer] [facility] Not Available Not Available 12/16/2024 16:47:08 04/24/20 24 04/24/2024 CBC panel - Blood by Autom ated count hemoglobin [mass/volume ] in blood 11.2 g/dL low: 11.9g/ dLhigh : 15.8g/ dL low Hemog lobin 11.2 (L) 11.9 - 15.8 g/dL 04/24 2:18 AM [facility] Not Available Not Available 12/16/2024 16:47:08 04/24/20 24 04/24/2024 CBC panel - Blood by Autom ated count hematocrit [volume fraction] of blood by automated count 34.9 % low: 34.8%h igh: 46.1% Hemat ocrit 34.9 34.8 - 46.1 % 04/24 2:18 AM [facility] Not Available Not Available 12/16/2024 16:47:08 04/24/20 24 04/24/2024 CBC panel - Blood by Autom ated count MCV [entitic mean volume] in red blood cells by automated count 86 fL low: 80fLhi gh: 98fL MCV 86.0 80.0 - 98.0 fL 04/24 2:18 AM [facility] Not Available Not Available 12/16/2024 16:47:08 04/24/20 24 04/24/2024 CBC panel - Blood by Autom ated count MCH [entitic mass] by automated count 27.6 pg low: 26.7pg high: 33.6pg MCH 27.6 26.7 - 33.6 pg 04/24 2:18 AM [facility] Not Available Not Available 12/16/2024 16:47:08 04/24/20 24 04/24/2024 CBC panel - Blood by Autom ated count MCHC [entitic mass/volume] in red blood cells by automated count 32.1 g/dL low: 31.7g/ dLhigh : 36.3g/ dL MCHC 32.1 31.7 - 36.3 g/dL 04/24 2:18 AM [facility] Not Available Not Available 12/16/2024 16:47:08 04/24/20 24 04/24/2024 CBC panel - Blood by Autom ated count erythrocyte [distwidth] in red blood cells by automated count 14.2 % low: 11.3%h igh: 14.8% RDW-C V 14.2 11.3 - 14.8 % 04/24 2:18 AM CDT [facility] Not Available Not Available 12/16/2024 16:47:08 04/24/20 24 04/24/2024 CBC panel - Blood by Autom ated count platelets [#/volume] in blood by automated count 254 text: 150 - 420 x10e9/ L Plate let Count 254 150 - 420 x10E9 /L 04/24 2:18 AM CDT [facility] Not Available Not Available 12/16/2024 16:47:08 04/24/20 24 04/24/2024 CBC panel - Blood by Autom ated count platelet [entitic mean volume] in blood by automated count 10.1 fL low: 7.8fLh igh: 11.4fL MPV 10.1 7.8 - 11.4 fL 04/24 2:18 AM CDT [facility] Not Available Not Available 12/16/2024 16:47:08 04/24/20 24 04/24/2024 CBC panel - Blood by Autom ated count interpretati on and review of laboratory results Abnorm al Not Available Not Available 16:47:08 04/24/20 24 04/24/2024 Basic metab olic 2000 panel - Serum or [id number]|2025-01-30 09:23:00|2025-01-30 09:22:00|XMS_ITS|BKG DAEMON|External Medical Summaries|[id number]|" Encounter Summary Created on: January 30, 2025 Lizeth Velasco : 1990 Sex: Female Author Organization [employer] [facility] Address [address] [facility] [[email or web address] [address] [place] [address] Phone Care Team Providers Care Videotape Sales Representative Name Role Phone Manoj Obregon MD Primary Care Provider [phone] Manoj Obregon MD Primary Care Provider [phone] Manoj Obregon MD Primary Care Provider [phone] Manoj Obregon MD Primary Care Provider [phone] Linda Santacruz MD Primary Care Provider [phone] Alberta Bernardo PT Unavailable [phone] Darlene Obregon MD Primary Care Provider Opal Jensen PT Unavailable Unavailable Delilah Yanez MD Unavailable [phone] Encounter Details Date Type Department Care Team (Late st Contact Info) Description 09/03/2016 Orders Only [facility] Provider, MD Gin [address] [place] [id number] Social History Tobacco Use Types Packs/Day Years Used Date Smoking Tobacco: Never Alcohol Use Standard Drinks/Week Comments No 0 (1 standard drink = 0.6 oz pur e alcohol) Comments Unknown Sex and Gender Information Value Date Recorded Sex Assigned at Not on file Legal Sex Female 1:24 AM [employer]LD [employer] Gender Identity Female 01/27/2023 11:59 AM CDT Sexual Orientation Not on file documented as of this encounter Plan of Treatment Not on file documented as of this encounter Procedures Procedure Name Priority Date/Time Associated Diagnosis Comments CARDIOLOGY REPORT 09/03/2016 CARDIOLOGY REPORT 09/03/2016 documented in this encounter Results * CARDIOLOGY REPORT (09/03/2016) Anatomical Region Laterality Modality Other Narrative 09/03/2016 Ordered by an unspecified provider. Historical Provider [facility] Final Result * CARDIOLOGY REPORT (09/03/2016) Anatomical Region Laterality Modality Other Narrative 09/03/2016 Ordered by an unspecified provider. us Historical Provider [facility] Final Result documented in this encounter Visit Diagnoses Not on filedocumented in this encounter Care Teams Videotape Sales Representative Relationship Specialty Start Date End Date Manoj Obregon MD [address] [place] [address] PCP - General 12/15/16 09/22/18 Manoj Obergon MD [address] [place] [address] PCP - General 10/31/16 12/14/16 Manoj Obregon MD [address] [place] [address] PCP - General 10/29/16 10/30/16 Manoj Obregon MD [address] [place] [address] PCP - General 02/15/16 10/28/16 Linda Santacruz MD [address] [place] [address] PCP - General 09/23/18 07/23/19 [place] [address] [place] [address] PCP - General Internal Medicine 04/25/22 [place] [address] [place] [address] Physical Therapist Physical Therapy 01/18/22 Opal Jensen, PT Physical Therapist Physical Therapy 06/16/22 Delilah Yanez MD [address] [place] [address] Consulting Physician Cardiology 06/15/23 documented as of this encounter "
--- OUTSIDE RECORDS SUMMARY | 2025-01-30 09:23 | XMS_ITS | Clinical Summary ---
Author Organization [facility] Address [address] [place] [address] Care Team Providers Care Metaphysician Name Role Phone Brenna Fox RN Unavailable [phone] None, Physician Primary Care Provider Unavailabl e Source Comments [facility],non-owned Affiliates and Associated Physician Practices is amultiple site organization consisting of ambulatory clinics and hospital sitesin [place], [place] and [place]. This disclosure is being madepursuant to the Care Everywhere program and may not contain all information available regarding this patient. Last updated 18.[facility] Allergies Active Allergy Reactions Criticality Noted Date Comments Lorazepam Rash Low 03/29/2015 Carbamazepine Unknown High 11/01/2019 Haluzzinations Other reaction(s): Hallucinations Ceftriaxone Rash,Urticaria,Itchi n g High 04/01/2020 Glucosamine Urticaria Medium 01/13/2025 Lacosamide Rash Medium Cerner Allergy Text Annotation: lacosamide Vimpat 11/13/2015 Paroxetine Rash Low 03/29/2015 Skin Adhesives Itching Medium 07/12/2023 Medications * This document contains information received from the source organization and may not represent a complete record from that organization. * Be aware that medications may not be up to date on this document. Alwaysverify current medications with the patient. magnesium oxide (MAG-OX) 400 MG tablet Take 1 (one) tablet by mouth 2 times daily Active fluticasone propionate (FLONASE) 50 MCG/ACT nasal spray 1 (one) spray 2 times daily as needed 2 Active buPROPion XL 24hr (WELLBUTRIN-XL) 300 MG tablet Take 1 (one) tablet by mouth once daily 2 Active albuterol HFA (PROVENTIL; VENTOLIN; PROAIR) 108 (90 Base) MCG/ACT inhaler INHALE 2 PUFFS BY MOUTH EVERY 6 TO 8 HOURS NEEDED 2 Active ARIPiprazole (ABILIFY) 2 MG tablet Take 7.5 mg by mouth once daily 2 Active betamethasone dipropionate 0.05 % lotionIndications :Other psoriasis Apply to scalp twice daily PRN. 30 days supply. 60 mL 3 3 Active traZODone (Desyrel) 100 MG tablet Take 1 (one) tablet by mouth once daily as needed 2 Active budesonide-formot fadumo (Symbicort) 160-4.5 MCG/ACT inhaler Inhale 2 (two) puffs by mouth once daily Active clobetasol (Temovate) 0.05 % solutionIndicatio ns:Other psoriasis Apply to scalp 1-2 times daily as needed. 30 days supply. 50 mL 5 4 Active ketoconazole (Nizoral) 2 % shampooIndication s:Other psoriasis Apply to wet hair, leave on for 3 minutes, then rinse; three times weekly. 30 days supply 120 mL 5 4 Active escitalopram (Lexapro) 10 MG tablet Take 1 (one) tablet by mouth once daily Active topiramate (Topamax) 50 MG tablet Take 1 (one) tablet by mouth 2 times daily Active busPIRone (Buspar) 10 MG tablet Take 1 (one) tablet by mouth 2 times daily 4 Active sodium chloride 1 GM tablet Take 1 (one) tablet by mouth 3 times daily with meals for 90 days 90 tablet 2 4 Active metoprolol succinate XL 24hr (Toprol XL) 25 MG tablet Take 0.5 (one-half) tablet by mouth once daily 90 tablet 1 5 Active oxyCODONE, immediate release, (Roxicodone) 5 MG tabletIndications :Pacemaker malfunction, initial encounter Take 1 (one) tablet by mouth every 6 hours as needed 12 tablet 5 Active midodrine (Proamatine) 10 MG tablet Take 1 (one) tablet by mouth 3 times daily before meals 30 tablet 1 5 Active pantoprazole EC (Protonix) 40 MG tablet Take 1 (one) tablet by mouth daily before breakfast 5 Active clindamycin (Cleocin) 300 MG capsule Take 1 (one) capsule by mouth 3 times daily for 14 days 30 capsule 5 01/14/20 25 Active Problems Patient Care Coordination No te Formatting of this note migh t be different from the original. Enrolled in [place] [employer] [facility] 01/23/2019 Size 1 and Size 4 given [facility] 07/2018 Problem Noted Date Diagnosed Date Pacemaker malfunction, initial encounter 025 COVID-19 05/17/2024 Orthostatic syncope 05/16/2024 Right bundle branch block 04/23/2024 Seizure disorder 07/11/2023 S/P ablation of atrial fibrillation 06/14/2023 07/11/2023 Encounter for induction of labor 12/09/2018 Supervision of high risk in third trim ama 12/03/2018 Mild intermittent asthma 11/18/2018 Evaluate anatomy not seen on prior sonogram 10/19 Cardiac condition complicating , antepa rtum 10/24/2018 History of pseudoseizure 08/01/2018 Overview (12/17/2022): Regulatory Import 12/16/22 Psoriasis 08/01/2018 POTS (postural orthostatic tachycardia syndrome) 08/01/2018 Sick sinus syndrome 08/01/2018 Cardiac pacemaker 08/01/2018 Depression affecting 08/01/2018 Syncope and collapse 05/29/2010 Maternal morbid obesity, antepartum, third trime ster Epilepsy, maternal, antepartum, third trimester Resolved Problems Problem Noted Date Diagnosed Date Resolved Date Encounter for ultrasound 12/04/2018 Encounters Date Type Department Care Team Description 01/27/2025 3:14 PM CDT - 01/27/2025 8:42 PM CDT Emergency ER at [facility] [address] [place] [address] Ag Keenan MD Syncope and collapse (Primary Dx); History of sprained wrist Discharge Disposition: Home or Self Care 01/27/2025 2:00 PM CDT Office Visit [facility] - Cardiology [address] [place] [address], [address] [phone] Ana Niño MD Sick sinus syndrome (HCC) (Primary Dx) 01/27/2025 Travel 01/13/2025 2:00 PM CDT Office Visit [facility] - Cardiology [address] [place] [address], [address] [phone] Ana Niño MD Sick sinus syndrome (HCC) (Primary Dx); Cardiac pacemaker 01/13/2025 Travel 12/30/2024 10:00 AM CDT Office Visit [facility] - Cardiology [address] [place] [address], [address] [phone] Ana Niño MD Sick sinus syndrome (HCC) (Primary Dx); Cardiac pacemaker 12/30/2024 Travel 12/26/2024 10:30 AM CDT Clinical Support [facility] Physician [facility] - Cardiology [address] [place] [address], [address] [phone] Sick sinus syndrome (CMS/HCC) ; Cardiac pacemaker 12/26/2024 Travel 12/17/2024 12:55 PM CDT Anesthesia Event [facility] - Cardiac [facility] [address] [place] [phone] Jose Armando Kim MD 12/17/2024 12:00 PM CDT - 12/17/2024 2:[address] [facility] - Cardiac [facility] [address] [place] [phone] Ana Niño MD Pacemaker Generator Replacement Dual Chamber 12/17/2024 Travel 12/12/2024 5:22 PM CDT - 12/18/2024 4:00 PM CDT Hospital Encounter [facility] [address] [place] [address] Carly Zavala MD Arora, MD Sandy Reddy, MD Jasen Cardiovascular Disease Discharge Disposition: Home or Self Care from Last 3 Months Immunizations Immunization Administration Dates Next Due HEP A PEDS 2 DOSE 04/20/2006 HEP B VACCINE, PED/ADOL 03/25/1997,10/22/1996, INFLUENZA VACCINE, QUADR. (F LUZONE; FLULAVAL; FLUARIX; AFLURIA QUADRIVALENT; 6MO+), 0.5 ML (IIV4) 07/31/2018,08/29/2016 TDAP (7yrs+) 10/09/2018 Social History Tobacco Use Types Packs/Day Years Used Date Smoking Tobacco: Never Smokeless Tobacco: Never Tobacco Cessation:Counseling Given: Not Answered Alcohol Use Standard Drinks/Week Comments No 0 (1 standard drink = 0.6 oz pur e alcohol) AUDIT-C Answer Date Recorded Q1: How often do you have a drink containing alcohol? Never 05/17/2024 Q2: How many drinks containi ng alcohol do you have on a typical day when you are drinking? Patient does not drink Q3: How often do you have si x or more drinks on one occasion? Never 05/17/2024 Overall Financial Resource Strain (CARDIA) Answe r Date Recorded How hard is it for you to pa y for the very basics like food, housing, medical care, and heating? Not very hard 05/17/2024 [facility] [place] [facility] Occupat ional Health - Occupational Stress Questionnaire Answer Date Recorded Do you feel stress - tense, restless, nervous, or anxious, or unable to sleep at night because your mind is troubled all the time - these days? Not at all 05/17/2024 Hunger Vital Sign Answer Date Recorded Within the past 12 months, y ou worried that your food would run out before you got the money to buy more. Sometimes true Within the past 12 months, t he food you bought just didn't last and you didn't have money to get more. Never true PRAPARE - Transportation Answer Date Re corded In the past 12 months, has l ack of transportation kept you from medical appointments or from getting medications? No 04/19 In the past 12 months, has l ack of transportation kept you from meetings, work, or from getting things needed for daily living? No 05/17/2024 Housing Stability Vital Sign Answer Malachi e Recorded In the last 12 months, was t here a time when you were not able to pay the mortgage or rent on time? No 05/17/2024 In the last 12 months, how many places have you lived? 1 05/17/2024 In the last 12 months, was t here a time when you did not have a steady place to sleep or slept in a correction (including now)? No 05/17/2024 Comments No Sex and Gender Information Value Date Recorded Sex Assigned at Female 01/27/2025 4:39 PM CDT Legal Sex Female 9:20 AM MARGIN CLERK Gender Identity Not on file Sexual Orientation Not on file Last Filed Vital Signs Vital Sign Reading Time Taken Comments Blood Pressure 126/82 01/27/2025 8:07 PM CDT Pulse 101 01/27/2025 8:07 PM CDT Temperature 36.5 C (97.7 F) 01/27/2025 3:23 PM CDT Respiratory Rate 29 01/27/2025 8:07 PM CDT Oxygen Saturation 98% 01/27/2025 8:07 PM CDT Inhaled Oxygen Concentration 21% 12/13/2024 8 :21 AM CDT Weight 141.1 kg (311 lb) 01/27/2025 3:23 PM CDT Height 162.6 cm (5' 4 ) 01/27/2025 3:23 PM CDT Body Mass Index 53.38 01/27/2025 3:23 PM CDT Plan of Treatment Upcoming Encounters Date Type Department Care Team (Late st Contact Info) Description 03/24/2025 1:00 AM CDT Clinical Support [facility] - Cardiology [address] [facility] [address] [place] [address] 04/29/2025 8:50 AM CDT Office Visit [facility] - Dermatology [address] [facility] [place] [phone] Sheryl Vazquez MD [address] [facility] [address] [place] [phone] 06/23/2025 1:00 AM CDT Clinical Support [facility] - Cardiology [address] [facility], [address] [phone] 08/04/2025 1:40 PM MARGIN CLERK [facility] [address] [facility], [address] [phone] Ana Niño MD [address] [place] [phone] 09/22/2025 1:00 AM MARGIN CLERK Clinical Support [facility] - Cardiology [address] [facility], [address] [phone] Health Maintenance Due Date Last Done Comments PAP SMEAR 1990 HEPATITIS C SCREENING 07/19/2009 PNEUMOCOCCAL VACCINE (1 of 2 - PCV) 2010 COVID-19 VACCINE (1 - season) 2024 DEPRESSION SCREENING 09/17/2024 INFLUENZA VACCINE (Season Ended) 2025 10/23/2023, 07/26/2022, 07/31/2018, Additional history exists DTAP/TDAP/TD VACCINES (2 - Td or Tdap) 10/09/2028 10/09/2018 ZOSTER VACCINE (1 of 2) 2041 HEPATITIS B VACCINE Completed 03/25/1997, 10/22/1996, 08/27/1996 HIV SCREENING Completed 11/27/2018, 09/18, 07/31/2018 HIB VACCINE Aged Out No longer eligi ble based on patient's age to complete this topic HPV VACCINE Aged Out No longer eligi ble based on patient's age to complete this topic MENINGOCOCCAL (Group B) VACCINE SHARED DECISION-MAKING Aged Out No longer eligible based on patient's age to complete this topic MENINGOCOCCAL GROUPS A/C/Y/W VACCINE Aged Out No longer eligible based on patient's age to complete this topic Medical Devices Implanted Type Area Mental Health Aide Device Identifier Shelf Expiration Date Model / Serial / Lot Pacemkr Ana Wire[employer] Crd - [id number] Implanted:Qty: 1 on 12/17/2024 by Ana Niño MD at [facility] [employer] [id number] 04/30/2026 [id number] / [id number] / NA Env Defib 3.3x2.9in Aigisrx Icd Tyrx Lg - [id number] Implanted:Qty: 1 on 12/17/2024 by Ana Niño MD at [facility] Right: Chest [employer] [id number] 09/17/2025 [id number] / [id number] / [id number] Procedures Procedure Name Priority Date/Time Associated Diagnosis Comments CARDIAC EKG ORDER 01/28/2025 4:5 6 PM CDT XR WRIST RIGHT 3VW OR MORE STAT 01/27/2025 4:02 PM CDT Syncope and collapse XR CHEST 1VW PORTABLE STAT 01/27/2025 4:01 PM CDT Syncope and collapse TROPONIN-I HIGH SENSITIVE STAT 2024 3:44 PM CDT HCG BETA BLOOD QUANTITATIVE STAT 01/27/2025 3:44 PM CDT CBC W AUTO DIFFERENTIAL STAT 01/28/20 3:44 PM CDT BASIC METABOLIC PANEL (CALCIUM TOTAL) STAT 01/27/2025 3:44 PM CDT EKG 12-LEAD STAT 01/27/2025 3:25 PM CDT Syncope and collapse EKG 12-LEAD Routine 01/27/2025 1:36 PM CDT Sick sinus syndrome (HCC) CARDIAC PROCEDURE ORDER 01/27/2025 EKG 12-LEAD Routine 01/13/2025 1:57 PM CDT Sick sinus syndrome (HCC) Cardiac pacemaker CARDIAC PROCEDURE ORDER 01/13/2025 CARDIAC PROCEDURE ORDER 01/05/2025 EKG 12-LEAD Routine 12/30/2024 10:13 AM CDT Sick sinus syndrome (HCC) Cardiac pacemaker CARDIAC PROCEDURE ORDER 12/26/2024 CBC W AUTO DIFFERENTIAL Routine 12/19/19 1:15 AM CDT RENAL FUNCTION PANEL AM Draw 12/18/2024 1:15 AM CDT MAGNESIUM BLOOD AM Draw 12/18/2024 1:15 AM CDT CARDIAC PROCEDURE ORDER 12/18/2024 PT EVAL AND TREAT Routine 12/17/2024 3:1 0 PM CDT OT EVAL AND TREAT Routine 12/17/2024 3:1 0 PM CDT ELECTROPHYSIOLOGY PROCEDURE Routine 12/17/2024 2:45 PM CDT Pacemaker malfunction, initial encounter PT-INR [facility] AM Draw 12/17/2024 3:50 AM CDT CBC W AUTO DIFFERENTIAL Routine 12/18/19 3:49 AM CDT RENAL FUNCTION PANEL AM Draw 12/17/2024 3:49 AM CDT MAGNESIUM BLOOD AM Draw 12/17/2024 3:49 AM CDT TYPE + SCREEN PANEL Routine 12/17/2024 3 :45 AM CDT CARDIAC PROCEDURE ORDER 12/17/2024 CARDIAC PROCEDURE ORDER 12/17/2024 US ABDOMEN LIMITED STAT 12/16/2024 10 :08 AM CDT RUQ pain Leukocytosis, unspecified type BLOOD TYPE VERIFICATION Routine 12/17/19 5:34 AM CDT TYPE + SCREEN PANEL Routine 12/16/2024 4 :19 AM CDT Pacemaker malfunction, initial encounter CBC W AUTO DIFFERENTIAL Routine 12/17/19 4:19 AM CDT PT-INR [facility] AM Draw 12/16/2024 4:19 AM CDT Pacemaker malfunction, initial encounter RENAL FUNCTION PANEL AM Draw 12/16/2024 4:19 AM CDT MAGNESIUM BLOOD AM Draw 12/16/2024 4:19 AM CDT HCG URINE QUALITATIVE Routine 12/16/2024 3:40 AM CDT URINALYSIS REFLEX MICROSCOPIC REFLEX CULTURE Routine 12/15/2024 6:23 PM CDT CULTURE URINE Routine 12/15/2024 6:23 PM CDT ECHO COMPLETE Routine 12/15/2024 9:53 AM CDT Syncope and collapse RENAL FUNCTION PANEL AM Draw 12/15/2024 5:02 AM CDT MAGNESIUM BLOOD AM Draw 12/15/2024 5:02 AM CDT CBC W/O DIFFERENTIAL AM Draw 12/15/2024 5:02 AM CDT RENAL FUNCTION PANEL AM Draw 12/14/2024 3:44 AM CDT MAGNESIUM BLOOD AM Draw 12/14/2024 3:44 AM CDT CBC W/O DIFFERENTIAL AM Draw 12/14/2024 3:44 AM CDT EKG 12-LEAD Timed 12/13/2024 9:07 PM CDT Orthostatic syncope Right bundle branch block URINALYSIS REFLEX MICROSCOPIC REFLEX CULTURE Routine 12/13/2024 11:54 AM CDT EKG 12-LEAD Routine 12/13/2024 8:15 AM CDT Pacemaker malfunction, initial encounter RENAL FUNCTION PANEL AM Draw 12/13/2024 3:12 AM CDT MAGNESIUM BLOOD AM Draw 12/13/2024 3:12 AM CDT CBC W/O DIFFERENTIAL AM Draw 12/13/2024 3:12 AM CDT PHOSPHORUS BLOOD STAT 12/12/2024 6:40 PM CDT MAGNESIUM BLOOD STAT 12/12/2024 6:40 PM CDT COMPREHENSIVE METABOLIC PANEL STAT 12/12/2024 6:40 PM CDT CBC W AUTO DIFFERENTIAL STAT 12/13/19 6:40 PM CDT HIV-1 HIV-2 ANTIBODY + HIV P24 AG PANEL Routine 11/27/2018 3:05 PM CDT POTS (postural orthostatic tachycardia syndrome) from Last 3 Months or Most Recently Relevant to Health Maintenance Results * CARDIAC EKG ORDER (01/28/2025 4:56 PM CDT) Narrative 01/28/2025 4:56 PM CDT Ordered by an unspecified provider. us Scanned Document CARDIAC SERVICES ORDERABLES Fin al Result * XR Wrist Right 3Vw or More (01/27/2025 4:02 PM CDT) Anatomical Region Laterality Modality Wrist / Hand Radiographic Shanice ging 01/27/2025 4:06 PM CDT Impressions 01/27/2025 4:06 PM CDT IMPRESSION: Normal right wrist radiographs. > Interpreting Provider: Angela Tuttle MD on 01/27/2025 4:06 PM Narrative 01/27/2025 4:06 PM CDT PROCEDURE: XR WRIST RIGHT 3VW OR MORE DATE/TIME OF EXAM: 01/27/2025 4:02 PM CLINICAL INFORMATION: None relevant/not provided if blank. Indication: R55: Syncope and collapse Additional History: COMPARISON: None. FINDINGS: There is no fracture. Alignment is normal. Joint spaces are normal. There is no appreciable soft tissue abnormality. Procedure Note Angela Tuttle MD - 01/27/2025 PROCEDURE: XR WRIST RIGHT 3VW OR MORE DATE/TIME OF EXAM: 01/27/2025 4:02 PM CLINICAL INFORMATION: None relevant/not provided if blank. Indication: R55: Syncope and collapse Additional History: COMPARISON: None. FINDINGS: There is no fracture. Alignment is normal. Joint spaces are normal. There is no appreciable soft tissue abnormality. IMPRESSION: Normal right wrist radiographs. > Interpreting Provider: Angela Tuttle MD on 01/27/2025 4:06 PM Ag Keenan MD DIAGNOSTIC IMAGING ORD ERABLES Final Result * XR CHEST 1VW PORTABLE (01/27/2025 4:01 PM CDT) Anatomical Region Laterality Modality Chest Radiographic Shanice ging 01/27/2025 4:03 PM CDT Impressions 01/27/2025 4:03 PM CDT IMPRESSION: No appreciable acute abnormality. > Interpreting Provider: Angela Tuttle MD on 01/27/2025 4:03 PM Narrative 01/27/2025 4:03 PM CDT PROCEDURE: XR CHEST 1VW PORTABLE DATE/TIME OF EXAM: 01/27/2025 4:02 PM CLINICAL INFORMATION: None relevant/not provided if blank. Indication: R55: Syncope and collapse Additional History: COMPARISON: None. FINDINGS: Lung volumes are small. No focal consolidation. No pneumothorax. No pleural effusion. Heart size is normal. A dual-lead pacemaker is seen. Procedure Note Angela Tuttle MD - 01/27/2025 PROCEDURE: XR CHEST 1VW PORTABLE DATE/TIME OF EXAM: 01/27/2025 4:02 PM CLINICAL INFORMATION: None relevant/not provided if blank. Indication: R55: Syncope and collapse Additional History: COMPARISON: None. FINDINGS: Lung volumes are small. No focal consolidation. No pneumothorax. Nopleural effusion. Heart size is normal. A dual-lead pacemaker is seen. IMPRESSION: No appreciable acute abnormality. > Interpreting Provider: Angela Tuttle MD on 01/27/2025 4:03 PM Ag Keenan MD DIAGNOSTIC IMAGING ORD ERABLES Final Result * TROPONIN-I HIGH SENSITIVE (01/27/2025 3:44 PM CDT) [facility] Troponin I High Sensitive <3 <=14 ng/L 01/27/2025 4:12 PM CDT [facility] Blood BLOOD SPECIMEN / Unknown Venipuncture / Unknown 01/27/2025 3:44 PM CDT 01/27/2025 3:48 PM CDT Ag Keenan MD LAB - CHEMISTRY ORDERA BLES Final Result [facility] [address] [place] [id number] * (ABNORMAL) CBC W AUTO DIFFERENTIAL (01/27/2025 3:44 PM CDT) Only the most recent of5 resultswithin the time period is included. [facility] WBC 10.6 4.0 - 10.7 x10E9/L 01/27/2025 3:52 PM CDT [facility] RBC Count 4.44 3.90 - 5.20 x10E12/L 01/27/2025 3:52 PM CDT [facility] Hemoglobin 12.6 11.9 - 15.8 g/dL 01/27/2025 3:52 PM CDT [facility] Hematocrit 40.0 34.8 - 46.1 % 01/27/2025 3:52 PM CDT [facility] MCV 90.1 80.0 - 98.0 fL 01/27/2025 3:52 PM [facility] MCH 28.4 26.7 - 33.6 pg 01/27/2025 3:52 PM [facility] MCHC 31.5(L) 31.7 - 36.3 g/dL 01/27/2025 3:52 PM [facility] RDW-CV 13.2 11.3 - 14.8 % 01/27/2025 3:52 PM [facility] Platelet Count 281 150 - 420 x10E9/L 01/27/2025 3:52 PM [facility] MPV 10.4 7.8 - 11.4 fL 01/27/2025 3:52 PM [facility] Neutrophil % 62.6 41.0 - 74.0 % 01/27/2025 3:52 PM [facility] Lymphocyte % 29.3 17.0 - 47.0 % 01/27/2025 3:52 PM [facility] Monocyte % 5.5 3.0 - 11.0 % 01/27/2025 3:52 PM [facility] Eosinophil % 2.0 0.0 - 7.0 % 01/27/2025 3:52 PM [facility] Basophil % 0.3 0.0 - 1.6 % 01/27/2025 3:52 PM [facility] Immature Granulocytes % 0.3 0.0 - 1.0 % 01/27/2025 3:52 PM [facility] Neutrophil Absolute 6.62 1.60 - 7.50 x10E9/L 01/27/2025 3:52 PM [facility] Lymphocyte Absolute 3.09 1.00 - 4.40 x10E9/L 01/27/2025 3:52 PM [facility] Monocyte Absolute 0.58 0.15 - 1.00 x10E9/L 01/27/2025 3:52 PM [facility] Eosinophil Absolute 0.21 0.00 - 0.60 x10E9/L 01/27/2025 3:52 PM [facility] Basophil Absolute 0.03 0.00 - 0.13 x10E9/L 01/27/2025 3:52 PM [facility] Blood BLOOD SPECIMEN / Unknown Venipuncture / Unknown 01/27/2025 3:44 PM CDT 01/27/2025 3:48 PM CDT Ag Keenan MD LAB - HEMATOLOGY ORDER BRIGETTE Final Result Performing Organization Address [facility]/ZIP Co de Phone Number [facility] [address] [place] [address] * (ABNORMAL) BASIC METABOLIC PANEL (CALCIUM TOTAL) (01/27/2025 3:44 PM CDT) [facility] Glucose 85 70 - 99 mg/dL 01/27/2025 4:07 PM CDT [facility] Sodium 139 136 - 145 mmol/L 01/27/2025 4:07 PM CDT [facility] Potassium 4.0 3.5 - 5.1 mmol/L 01/27/2025 4:07 PM CDT [facility] Chloride 107 98 - 107 mmol/L 01/27/2025 4:07 PM CDT [facility] CO2 24 22 - 29 mmol/L 01/27/2025 4:07 PM CDT [facility] Calcium 8.7 8.4 - 10.4 mg/dL 01/27/2025 4:07 PM CDT [facility] Anion Gap 8 6 - 16 mmol/L 01/27/2025 4:07 PM CDT [facility] BUN 11 5.3 - 18.7 mg/dL 01/27/2025 4:07 PM CDT [facility] Creatinine 0.99 0.57 - 1.11 mg/dL 01/27/2025 4:07 PM T [facility] eGFR by CKD-EPI 77(L) >=90 mL/min/1.7 3 m2 01/27/2025 4:07 PM CDT [facility] Blood BLOOD SPECIMEN / Unknown Venipuncture / Unknown 01/27/2025 3:44 PM CDT 01/27/2025 3:48 PM CDT Ag Keenan MD LAB - CHEMISTRY ORDERA BLES Final Result Performing Organization Address City/[facility]/ZIP Co de Phone Number [facility] [address] [place] [address] * HCG BETA BLOOD QUANTITATIVE (01/27/2025 3:44 PM CDT) hCG Quantitative <2.42 mIU/mL 01/28/20 4:12 PM CDT [facility] Blood BLOOD SPECIMEN / Unknown Venipuncture / Unknown 01/27/2025 3:44 PM CDT 01/27/2025 3:48 PM CDT Narrative [facility] - 01/27/2025 4:12 PM CDT hCG Reference Range, mIU/mL: Non Females 0-6.0 Perimenopausal Females ages 41-55* 0-7.7 Postmenopausal Females age >55* 0-14 Females, Weeks after Last Menstrual Period 0.2-1 week 5-50 1 - 2 weeks 50-500 2 - 3 weeks 100-5000 3 - 4 weeks 500-10,000 4 - 5 weeks 1000-50,000 5 - 6 weeks 10,000-100,000 6 - 8 weeks 15,000-200,000 2 - 3 months 10,000-100,000 Trophoblastic Disease >100,000 *In higher than expected hCG in females > age 40, a serum FSH >20 IU/L makes unlikely. us Ag Keenan MD LAB - CHEMISTRY ORDERA BLES Final Result [facility] [address] [place] [id number] * EKG 12-LEAD (01/27/2025 3:25 PM CDT) Only the most recent of5 resultswithin the time period is included. [id number]|2025-01-30 09:23:00|2025-01-30 09:22:00|XMS_ITS|NEETU HYMAN|External Medical Summaries|[id number]|" Encounter Summary Created on: January 30, 2025 Lizeth Velasco : 1990 Sex: Female Author Organization [facility] Address [address] [place] [address] Phone Care Team Providers Care Metaphysician Name Role Phone Manoj Obregon MD Primary Care Provider [phone] Manoj Obregon MD Primary Care Provider [phone] Manoj Obregon MD Primary Care Provider Manoj Obregon MD Primary Care Provider [phone] Manoj Obregon MD Primary Care Provider [phone] Manoj Obregon MD Primary Care Provider [phone] Manoj Obregon MD Primary Care Provider [phone] Manoj Obregon MD Primary Care Provider [phone] Linda Santacruz MD Primary Care Provider [phone] Alberta Bernardo PT Unavailable [phone] Darlene Obregon MD Primary Care Provider Opal Jensen PT Unavailable Unavailable Delilah Yanez MD Unavailable [phone] Encounter Details Date Type Department Care Team (Late st Contact Info) Description 04/17/2014 Orders Only [facility] Provider, MD Gin [address] [place] [address] Social History Tobacco Use Types Packs/Day Years Used Date Smoking Tobacco: Never Assessed Comments Unknown Sex and Gender Information Value Date Recorded Sex Assigned at Not on file Legal Sex Female 1:24 AM MARGIN CLERK Gender Identity Female 01/27/2023 11:59 AM CDT Sexual Orientation Not on file documented as of this encounter Plan of Treatment Not on file documented as of this encounter Procedures Procedure Name Priority Date/Time Associated Diagnosis Comments CARDIOLOGY REPORT 04/17/2014 documented in this encounter Results * CARDIOLOGY REPORT (04/17/2014) Anatomical Region Laterality Modality Other Narrative 04/17/2014 Ordered by an unspecified provider. us Historical Provider [facility] DINO PHILLIPS Final Result documented in this encounter Visit Diagnoses Not on filedocumented in this encounter Care Teams Metaphysician Relationship Specialty Start Date End Date Manoj Obregon MD [address] [place] [address] PCP - General 12/15/16 09/22/18 Manoj Obregon MD [address] [place] [address] PCP - General 10/31/16 12/14/16 Manoj Obregon MD [address] [place] [address] PCP - General 10/29/16 10/30/16 Manoj Obregon MD [address] [place] [facility] [place] [address] PCP - General 02/15/16 10/28/16 Manoj Obregon MD [address] [place] [facility] [place] [address] PCP - General 12/24/15 02/14/16 Manoj Obregon MD [address] [place] [facility] [place] [address] PCP - General 03/02/15 12/23/15 Manoj Obregon MD [address] [place] [address] PCP - General 01/14/15 03/01/15 Manoj Obregon MD [address] [place] [address] PCP - General 01/24/12 01/13/15 Linda Santacruz MD [address] [place] [address] PCP - General 09/23/18 07/23/19 [place] [address] [place] [address] PCP - General Internal Medicine 04/25/22 [place] [address] [place] [address] Physical Therapist Physical Therapy 01/18/22 Opal Jensen, PT Physical Therapist Physical Therapy 06/16/22 Delilah Yanez MD [address] [place] [address] Consulting Physician Cardiology 06/15/23 documented as of this encounter "
--- OUTSIDE RECORDS SUMMARY | 2025-01-30 09:23 | XMS_ITS | Encounter Summary ---
Author Organization [facility] Address [address] [place] [address] Phone Care Team Providers Care Computational Mathematician Name Role Phone Manoj Obregon MD Primary Care Provider [phone] Manoj Obregon MD Primary Care Provider [phone] Manoj Obregon MD Primary Care Provider [phone] Manoj Obregon MD Primary Care Provider [phone] Manoj Obregon MD Primary Care Provider [phone] Manoj Obregon MD Primary Care Provider [phone] Manoj Obregon MD Primary Care Provider [phone] Manoj Obregon MD Primary Care Provider [phone] Linda Santacruz MD Primary Care Provider Alberta Bernardo PT Unavailable [phone] Darlene Obregon MD Primary Care Provider Opal Jensen PT Unavailable Unavailable Delilah Yanez MD Unavailable [phone] Encounter Details Date Type Department Care Team (Late st Contact Info) Description 08/11/2014 Orders Only [facility] Provider, MD Gin [address] [place] [address] Social History Tobacco Use Types Packs/Day Years Used Date Smoking Tobacco: Never Assessed Comments Unknown Sex and Gender Information Value Date Recorded Sex Assigned at Not on file Legal Sex Female 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 us Historical Provider [facility] DINO PHILLIPS Final Result documented in this encounter Visit Diagnoses Not on filedocumented in this encounter Care Teams Computational Mathematician Relationship Specialty Start Date End Date Manoj Obregon MD [address] [place] [address] PCP - General 12/15/16 09/22/18 Manoj Obregon MD [address] [place] [address] PCP - General 10/31/16 12/14/16 Manoj Obregon MD [address] [place] [address] PCP - General 10/29/16 10/30/16 Manoj Obregon MD [address] [place] [address] PCP - General 02/15/16 10/28/16 Manoj Obregon MD [address] [place] [address] PCP - General 12/24/15 02/14/16 Manoj Obregon MD [address] [place] [address] PCP - General 03/02/15 12/23/15 Manoj Obregon MD [address] [place], [place] [address] PCP - General 01/14/15 03/01/15 Manoj Obregon MD [address] [place] [address] PCP - General 01/24/12 01/13/15 Linda Santacruz MD [address] [place] [address] PCP - General 09/23/18 07/23/19 [place] [address] [place] [address] PCP - General Internal Medicine 04/25/22 [place] [address] [place] [address] Physical Therapist Physical Therapy 01/18/22 Opal Jensen, PT Physical Therapist Physical Therapy 06/16/22 Delilah Yanez MD [address] [place] [address] Consulting Physician Cardiology 06/15/23 documented as of this encounter
--- OUTSIDE RECORDS SUMMARY | 2025-01-30 09:23 | XMS_ITS | Encounter Summary ---
Author Organization [facility] Address [address] [place] [address] Phone Care Team Providers Care Structural Steel Erector Name Role Phone Manoj Obregon MD Primary Care Provider [phone] Manoj Obregon MD Primary Care Provider [phone] Manoj Obregon MD Primary Care Provider [phone] Manoj Obregon MD Primary Care Provider [phone] Linda Santacruz MD Primary Care Provider [phone] Alberta Bernardo PT Unavailable [phone] Darlene Obregon MD Primary Care Provider Opal Jensen PT Unavailable Unavailable Delilah Yanez MD Unavailable [phone] Encounter Details Date Type Department Care Team (Late st Contact Info) Description 05/16/2016 Orders Only [facility] Provider, MD Gin [address] [place] [address] Social History Tobacco Use Types Packs/Day Years Used Date Smoking Tobacco: Never Alcohol Use Standard Drinks/Week Comments No 0 (1 standard drink = 0.6 oz pur e alcohol) Comments Unknown Sex and Gender Information Value Date Recorded Sex Assigned at Not on file Legal Sex Female 1:24 AM 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 us Historical Provider [facility] PROCE DURES Final Result * CARDIOLOGY REPORT (05/16/2016) Anatomical Region Laterality Modality Other Narrative 05/16/2016 Ordered by an unspecified provider. us Historical Provider [facility] PROCE DURES Final Result documented in this encounter Visit Diagnoses Not on filedocumented in this encounter Care Teams Structural Steel Erector Relationship Specialty Start Date End Date Manoj Obregon MD [address] [place] [address] PCP - General 12/15/16 09/22/18 Manoj Obregon MD [address] [place] [address] PCP - General 10/31/16 12/14/16 Manoj Obregon MD [address] [place] [address] PCP - General 10/29/16 10/30/16 Manoj Obregon MD [address] [place] [address] PCP - General 02/15/16 10/28/16 Linda Santacruz MD [address] [place] [address] PCP - General 09/23/18 07/23/19 [place] [address] [place] [address] PCP - General Internal Medicine 04/25/22 [place] [address] [place] [address] Physical Therapist Physical Therapy 01/18/22 Opal Jensen, PT Physical Therapist Physical Therapy 06/16/22 Delilah Yanez MD [address] [place] [address] Consulting Physician Cardiology 06/15/23 documented as of this encounter
--- OUTSIDE RECORDS SUMMARY | 2025-01-30 09:23 | XMS_ITS | Clinical Summary ---
Author Organization [facility] Address [address] [place] [address] Care Team Providers Care Senior Mobile Solutions Architect Name Role Phone Alberta Bernardo All PT Unavailable [phone] Darlene Obregon MD Primary Care Provider Opal Jensen PT Unavailable Unavailable Delilah Yanez MD Unavailable [phone] Allergies Active Allergy Reactions Criticality Noted Date [...] Nasal saline spray (Simply saline, Little Remedies, Willow, [place]) 2 second sprays or 2 squeezes into [...] 07/17/2022 Assessment & Plan (10/27/2022 10:05 AM LIFELINE REPRESENTATIVES): Omeprazole 40 in the morning 30-60 minutes before a meal Continue Pepcid at bedtime Continue CPAP, Continue Flonase in the evening Laryngopharyngeal reflux discussed and Handout provided Assessment & Plan (07/17/2022 9:09 AM CDT): Nasal saline spray (Simply saline, Little Remedies, Willow, [place]) 2 second sprays or 2 squeezes into [...] am going to make a referral down [facility] for further evaluation. She is in understanding. [...] syndrome 2013 Obesity 03/19/2013 Vasovagal syncope 07/25/2012 Encounters Date Type Department Care Team Description 01/18/2025 11:17 AM CDT - 01/18/2025 11:59 PM CDT Hospital Encounter PENDING SALE TO [facility] Emergency, Room R Discharge Disposition: Discharge to home or self care 01/10/2025 3:23 PM CDT - 01/10/2025 11:59 PM CDT Hospital Encounter PENDING S[facility] TO [facility] Emergency, Room R Discharge Disposition: Discharge to home or self care 12/12/2024 8:26 AM CDT - 12/12/2024 11:59 PM CDT Hospital Encounter [facility] Emergency, Room R Discharge Disposition: Discharge to home or self care from Last 3 Months Immunizations Immunization Administration Dates Next Due Influenza, Quadrivalent, Spl it, Preservative Free, Intramuscular 08/29/2016 Surgical History Surgery Date Site/Laterality Comments CARDIAC PACEMAKER PLACEMENT 09/17/2013 - 09/16/2014 pace maker; Medtronic Dual Pacemaker OTHER SURGICAL HISTORY Paroxysmal orthostatic tachycardia syndrome: Pacemaker placement OTHER SURGICAL HISTORY 09/17/2010 - 09/16/2011 : 12 hr labor TUBAL LIGATION CARDIAC ELECTROPHYSIOLOGY MAPPING AND ABLATION 06/14/2023 Medical History Medical History Date Comments Hx Other Medical Anxiety/depress ion; Comments: RED 08/17/2016 - Hx Other Medical Seizure disorde r; Comments: RED 08/17/2016 - Hx Other Medical Paroxysmal orth ostatic tachycardia syndrome; Comments: RED 08/17/2016 - Hx Other Medical Mild intermitte nt asthma; Comments: RED 08/17/2016 - Hx Other Medical ; Comm ents: Uncomplicated .; Outcome: 39W0D week 7lb(s) 1 oz Female Hypotension Sick sinus syndrome (HCC) Sleep apnea 11/02/2017 Asthma Depression Anxiety Bipolar 1 disorder (HCC) Motion sickness POTS (postural orthostatic tachycardia syndrome) Seizures (HCC) Family History Medical History Relation Name Comments Hypertension Father Hypertension; Stroke Father Coronary artery disease Father's Brother Diabetes Other Diabetes mellit ; Relation Name Status Comments Father Father's Brother Other Social History Tobacco Use Types Packs/Day Years [...] on file Legal Sex Female 1:24 AM LIFELINE REPRESENTATIVES Gender Identity Female 01/27/2023 11:59 AM CDT Sexual Orientation Not on file Occupation Industry Job Start Date Job End Date N/A Not on file Not on file Not on file Obstetrics History Para Term AB IAB SAB Ectopic Multiple Livin g Live Births 3 2 2 0 0 2 2 Date Outcome GA Total Labor Labor/2nd/3rd Weight Sex Type Anes PTL Aline A1 A5 Name Clin 1 Term 38w 0d 3.204 kg (7 lb 1 oz) F Vag-S pont Living 7 Term 38w 2d 2.892 kg (6 lb 6 oz) M Vag-S pont Living Comments 1. 2010 - Labor, Alba SINHA. 2. 2016 - IOL, Alba Gates. Last Filed Vital Signs Vital Sign Reading [...] 04/02/2024 8:10 AM CDT Plan of Treatment Health Maintenance Due Date Last Done Comments Depression Screening 1991 Varicella Vaccines (1 of 2 - 13+ 2-dose series) 2004 Regular Well Visit/Exam 18-64 2009 Pneumococcal vaccine <65 (1 of 2 - PCV) 2010 Cervical Cancer Screening 05/24/2019 05/24/2018 Influenza Vaccine (Season Ended) 2025 10/23/2023, 07/26/2022, 07/31/2018, Additional history exists DTaP/Tdap/Td Vaccine (2 - Td or Tdap) 10/09/2028 10/09/2018 Hepatitis B Screening Completed 03/25/1997 , 10/22/1996, 08/27/1996 Hepatitis C Screening Completed 05/24/2018, 016 HPV Vaccines Aged Out No longer eligi ble based on patient's age to complete this topic Procedures Procedure Name Priority Date/Time Associated Diagnosis Comments THINPREP GREEK PROFESSOR PAP (IMAGE GUIDED) LIQUID-BASED PREP Routine 05/24/2018 [...] canceled by t nate ancillary CLINICAL INFORMATION: [facility] [place] LMP [facility] [place] Previous Pap NONE [facility]IV[facility] [place] Prev. Bx NONE [facility]IVEN [facility] [place] SOURCE: [facility] [place] Comment:Cervix, Endocervix Pap, specimen adequacy [facility] [place] Comment: Satisfactory for evaluation. Endocervical/transformation zone component present. Pap, general categorization [facility] [place] Comment:Result canceled by t nate ancillary HPV interp [facility] [place] Comment:Negative for intraep ithelial lesion or malignancy. Infection: [facility] [place] Comment:Result canceled by t he ancillary COMMENTS [facility] [place] Comment: This Pap test has been evaluated with computer assisted technology. House Principal [facility] - Comment: SANA, CT(ASCP) CT screening location: [place] [address] [place] [address] Review test deskman [facility] [place] Comment:Result canceled by t nate ancillary Pathologist [facility] [place] Comment:Result canceled by t he ancillary Comment [facility] [place] Comment: EXPLANATORY NOTE: The [...] Agency Comment Performing Organization Information: Site ID: [id number] Name: [facility] Address: [address] [place] [address] Director: Vanessa Lucas us Maricarmen Delaney MD LAB PATHOLOGY ORDERAB LES Final Result Performing Organization Address [facility] Co de Phone Number [facility] [place] * Hepatitis C antibody (05/24/2018 2:41 PM CDT) Hep C Ab NON-REACTI VE NON-REACTI VE [facility] [place] SIGNAL TO CUT-OFF 0.03 <1.00 [facility] [place] Blood specimen (specimen) 05/24/2018 2:41 PM CDT 05/24/2018 2:46 PM CDT Narrative [facility] - 05/27/2018 11:01 AM CDT FASTING:NO PATIENT UNABLE TO VOID; ADVISED TO RETURN FOR COLLECTION. FASTING: NO Resulting Agency Comment Performing Organization Information: Site ID: [id number] Name: [facility] Address: [address] [facility] [place] [address] Director: Andrew James D.O., MPH us Maricarmen Delaney MD LAB MICROBIOLOGY - GE NERAL ORDERABLES Final Result Performing Organization Address [facility] Co de Phone Number [facility] [place] Strong from Last 3 Months or Most Recently Relevant to Health Maintenance Insurance [facility] Advance Directives For more information, please contact: [phone] * Full Code (Latest Code Status on File) Date Activated Date Inactivated Comments 2019 2:29 PM 2019 7:44 PM Care Teams Senior Mobile Solutions Architect Relationship Specialty Start [place] [address] [place] [address] PCP - General Internal Medicine 04/25/22 [place] [address] [place] [address] Physical Therapist Physical Therapy 01/18/22 Opal Jensen, PT Physical Therapist Physical Therapy 06/16/22 Delilah Yanez MD [address] [place] [address] Consulting Physician Cardiology 06/15/23
--- OUTSIDE RECORDS SUMMARY | 2025-01-30 09:24 | XMS_ITS | Encounter Summary ---
Author Organization [facility] Address [address] [place] [address] Phone Care Team Providers Care Solid Waste Collection Worker Name Role Phone Manoj Obregon MD Primary Care Provider Linda Santacruz MD Primary Care Provider Alberta Bernardo PT Unavailable Darlene Obregon MD Primary Care Provider Opal Jensen PT Unavailable Unavailable Delilah Yanez MD Unavailable Encounter Details Date Type Department Care Team (Late st Contact Info) Description 06/01/2017 Orders Only [facility] ProviderGin MD [address] [place] [address] Social History Tobacco Use Types Packs/Day Years Used Date Smoking Tobacco: Never Alcohol Use Standard Drinks/Week Comments No 0 (1 standard drink = 0.6 oz pur e alcohol) Comments Unknown Sex and Gender Information Value Date Recorded Sex Assigned at Not on file 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 us Historical Provider [facility] DINO PHILLIPS Final Result documented in this encounter Visit Diagnoses Not on filedocumented in this encounter Care Teams Solid Waste Collection Worker Relationship Specialty Start Date End Date Manoj Obregon MD [address] [place] [address] PCP - General 12/15/16 09/22/18 Linda Santacruz MD [address] [place] [address] PCP - General 09/23/18 07/23/19 [place] [address] [place] [address] PCP - General Internal Medicine 04/25/22 [place] [address] [place] [address] Physical Therapist Physical Therapy 01/18/22 Opal Jensen, PT Physical Therapist Physical Therapy 06/16/22 Delilah Yanez MD [address] [place] [address] Consulting Physician Cardiology 06/15/23 documented as of this encounter
--- OUTSIDE RECORDS SUMMARY | 2025-01-30 09:24 | XMS_ITS | Encounter Summary ---
Author Organization [facility] Address [address] [place] [address] Phone Care Team Providers Care Locomotive Observer Name Role Phone Manoj Obregon MD Primary Care Provider [phone] Linda Santacruz MD Primary Care Provider [phone] Alberta Bernardo PT Unavailable Darlene Obregon MD Primary Care Provider Opal Jensen PT Unavailable Unavailable Delilah Yanez MD Unavailable [phone] Encounter Details Date Type Department Care Team (Late st Contact Info) Description 12/04/2017 Orders Only [facility] Provider, MD Gin [address] [place] [address] Social History Tobacco Use Types Packs/Day Years Used Date Smoking Tobacco: Never Smokeless Tobacco: Never Alcohol Use Standard Drinks/Week Comments No 0 (1 standard drink = 0.6 oz pur e alcohol) Comments No Sex and Gender Information Value Date Recorded Sex Assigned at Not on file Legal Sex Female 1:24 AM 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 us Historical Provider [facility] C[facility] SERVICES PROCE DURES Final Result * CARDIOLOGY REPORT (12/04/2017) Anatomical Region Laterality Modality Other Narrative 12/04/2017 Ordered by an unspecified provider. Historical Provider [facility] CARDIAC SERVICES PROCE DURES Final Result documented in this encounter Visit Diagnoses Not on filedocumented in this encounter Care Teams Locomotive Observer Relationship Specialty Start Date End Date Manoj Obregon MD [address] [place] [address] PCP - General 12/15/16 09/22/18 Linda Santacruz MD [address] [place] [address] PCP - General 09/23/18 07/23/19 [place] [address] [place] [address] PCP - General Internal Medicine 04/25/22 [place] [address] [place] [address] Physical Therapist Physical Therapy 01/18/22 Opal Jensen, PT Physical Therapist Physical Therapy 06/16/22 Delilah Yanez MD [address] [place] [address] Consulting Physician Cardiology 06/15/23 documented as of this encounter
--- OUTSIDE RECORDS SUMMARY | 2025-01-30 09:24 | XMS_ITS | Clinical Summary ---
Author Organization [facility] Address [address] [place] [address] Phone Care Team Providers Care Geochemistry Teacher Name Role Phone Jeremiah Aviles MD Primary Care Provider Isaias Whelan MD Unavailable Allergies Active Allergy Reactions Criticality Noted Date Comments Lorazepam Itching 08/21/2015 Carbamazepine Hallucinations 11/01/2019 Lacosamide Unknown 06/16/2017 Paroxetine Hcl Itching 08/21/2015 Ceftriaxone Hives,Itching 04/01/2020 Medications buPROPion (WELLBUTRIN) 300 MG TABLET SR 24 HR XL tablet Take 300 mg by mouth every morning. Active traZODone (DESYREL) 100 MG Tablet Take 100 mg by mouth nightly. Active Elastic Bandages & Supports (Medical Compression Stockings) Misc 2 Pieces by Does not apply route daily. 2 Each 2 Active omeprazole (PriLOSEC) 40 MG CAPSULE DELAYED RELEASE Take 1 Capsule by mouth daily. 30 Capsule 3 Active Additional Information Patient not taking.Reported on 05/21/2024 diclofenac (CATAFLAM) 50 MG Tablet Take 1 Tablet by mouth 2 times daily. 20 Tablet 3 Active Additional Information Patient not taking.Reported on 05/21/2024 traMADol (ULTRAM) 50 MG TabletIndicatio ns:Chest wall pain Take 1-2 Tablets by mouth every 6 hours as needed for Moderate or more severe pain. 20 Tablet 3 Active Additional Information Patient not taking.Reported on 05/21/2024 naproxen (NAPROSYN) 500 MG Tablet Take 1 Tablet by mouth 2 times daily as needed for Mild or more severe pain. 20 Tablet 3 Active Additional Information Patient not taking.Reported on 05/21/2024 Topiramate 50 MG Tablet Take 50 mg by mouth 2 times daily. Active omeprazole (PriLOSEC) 20 MG CAPSULE DELAYED RELEASE Take 1 Capsule by mouth daily. 30 Capsule 4 Active Additional Information Patient not taking.Reported on 05/21/2024 meclizine (ANTIVERT) 25 MG Tablet Take 1 Tablet by mouth 3 times daily as needed for Dizziness. 30 Tablet 4 Active Additional Information Patient not taking.Reported on 05/21/2024 albuterol 108 (90 Base) MCG/ACT Aerosol Solution INHALE 2 PUFFS BY MOUTH EVERY 6 TO 8 HOURS NEEDED Active budesonide-form oterol fumarate (SYMBICORT) 160-4.5 MCG/ACT Aerosol take 2 Puffs by inhalation. Active busPIRone (BUSPAR) 10 MG Tablet Take 1 Tablet by mouth 2 times daily. 4 Active clobetasol (TEMOVATE) 0.05 % Solution APPLY TO SCALP 1-2 TIMES DAILY NEEDED. 30 DAYS SUPPLY. Active escitalopram (LEXAPRO) 10 MG Tablet Take 10 mg by mouth daily. 4 Active magnesium oxide (MAG-OX) 400 MG Tablet Take 400 mg by mouth 2 times daily. 2 Active metoprolol Succinate (TOPROL-XL) 25 MG TABLET SR 24 HR Take 1 Tablet by mouth daily. Active ketorolac (TORADOL) 10 MG Tablet Take 1 Tablet by mouth every 6 hours as needed for Mild or more severe pain. 15 Tablet 4 Active predniSONE (DELTASONE) 20 MG Tablet 2 tabs po daily x 3 days, then 1 tab po daily x 3 days, then 1/2 tab po daily x 4 days 11 Tablet 4 Active tiZANidine HCl (Zanaflex) 4 MG Capsule Take 1 Capsule by mouth 3 times daily. 90 Capsule 5 Active traMADol (ULTRAM) 50 MG TabletIndicatio ns:Back pain Take 1-2 Tablets by mouth every 6 hours as needed for Moderate or more severe pain. 20 Tablet Active flecainide (TAMBOCOR) 100 MG Tablet Take 100 mg by mouth 2 times daily. 025 Discontin ued(Med List Clean Up) Active Problems Problem Noted Date Diagnosed Date Syncope 12/12/2024 Encounters Date Type Department Care Team Description 01/18/2025 11:37 AM CDT - 01/18/2025 2:45 PM CDT Emergency [facility] Emergency [address] [place] [address] Miguel Angel Sims MD Keen, Christie Marie, APRN, CNP Syncope, unspecified syncope type Discharge Disposition: Discharged to home or Selfcare 01/18/2025 Travel 01/10/2025 3:40 PM CDT - 01/10/2025 5:41 PM CDT Emergency [facility] Emergency [address] [place] [address] Samson Huffman MD Syncope, unspecified syncope type Discharge Disposition: Discharged to home or Selfcare 01/10/2025 Travel 12/12/2024 8:46 AM CDT - 12/12/2024 4:39 PM CDT Emergency [facility] Emergency [address] [place] [address] Lon Shetty DO Carmicheal, Christina Stock MD Syncope Discharge Disposition: Short Term Hospital for [facility]pt Care 12/12/2024 Travel 12/08/2024 4:32 AM CDT - 12/08/2024 6:27 AM CDT Emergency [facility] Emergency [address] [place] [address] Sedrick Quick MD Landry, Scott Lewis, MD Back pain Discharge Disposition: Discharged to home or Selfcare 12/08/2024 Travel from Last 3 Months Family History Medical History Relation Name Comments No Known Problems Brother Autism Daughter 1 No Known Problems Daughter 2 Asthma Father Diabetes Father Hypertension Father Other-comment Father diverticulitis No Known Problems Half-Sister Arthritis Maternal Grandfather Pacemaker Maternal Grandmother Arthritis Mother No Known Problems Paternal Grandfather No Known Problems Paternal Grandmother ADD / ADHD Son Asthma Son Relation Name Status Comments Brother Alive Daughter 1 Alive Daughter 2 Alive Father Alive Half-Sister Alive Maternal Grandfather Alive Maternal Grandmother Alive Mother Alive Paternal Grandfather Paternal Grandmother Son Alive Social History Tobacco Use Types Packs/Day Years Used Date Smoking Tobacco: Never Smokeless Tobacco: Never Tobacco Cessation:Counseling Given: Not Answered Alcohol Use Standard Drinks/Week Comments No 0 (1 standard drink = 0.6 oz pur e alcohol) Sexually Active Control Partners Comments Yes Male Comments No Sex and Gender Information Value Date Recorded Sex Assigned at Female 02/15/2024 1:19 AM CDT Legal Sex Female 9:54 PM CDT Gender Identity Female 02/15/2024 1:19 AM CDT Sexual Orientation Not on file Last Filed Vital Signs Vital Sign Reading Time Taken Comments Blood Pressure 137/76 01/18/2025 2:30 PM CDT Pulse 65 01/18/2025 2:30 PM CDT Temperature 37 C (98.6 F) 01/18/2025 11:41 AM CDT Respiratory Rate 24 01/18/2025 2:30 PM CDT Oxygen Saturation 100% 01/18/2025 2:30 PM CDT Inhaled Oxygen Concentration - - Weight 143.3 kg (316 lb) 01/18/2025 11:41 AM CDT Height 162.6 cm (5' 4 ) 01/18/2025 11:41 AM CDT Body Mass Index 54.24 01/18/2025 11:41 AM CDT Plan of Treatment Health Maintenance Due Date Last Done Comments Hepatitis C Virus (HCV) Screening 1991 Pap Smear 2012 Cervical Cancer Screening (CCS) 2021 HPV/Cotest 2021 SARS-COV-2 Immunization ( season) 2024 Influenza Immunization (Season Ended) 2025 10/23/2023, 07/26/2022, 07/31/2018, Additional history exists Respiratory Syncytial Virus (RSV) Immunization (Adult) (1 - 1-dose 75+ series) 2066 Hepatitis B Immunization Completed 997, 10/22/1996, 08/27/1996 DTaP/Tdap/Td Immunization Discontinued 10/09/2018 TdaP Immunization Completed 10/09/2018 Human Papillomavirus (HPV) Immunization Aged Out No longer eligible based on patient's age to complete this topic Meningococcal Immunization (ACWY) Aged Out No longer eligible based on patient's age to complete this topic Pneumococcal Immunization Combined Aged Out No longer eligible based on patient's age to complete this topic Rotavirus Immunization Aged Out No lo nger eligible based on patient's age to complete this topic Procedures Procedure Name Priority Date/Time Associated Diagnosis Comments UR TEST QUAL STAT 01/18/2025 1:12 PM CDT URINE DRUG SCREEN STAT 01/18/2025 1:1 2 PM CDT URINALYSIS REFLEX IF INDICATED BY ABNORMAL RESULTS STAT 01/18/2025 1:12 PM CDT CULTURE, URINE STAT 01/18/2025 1:12 PM CDT CBC WITH AUTO DIFFERENTIAL STAT 01/18/2025 11:45 AM CDT TROPONIN I, HIGH SENSITIVITY (HSTRP) STAT 01/18/2025 11:45 AM CDT CMP (COMPREHENSIVE METABOLIC PANEL) STAT 01/18/2025 11:45 AM CDT COMPLETE BLOOD COUNT (CBC) WITH DIFF STAT 01/18/2025 11:45 AM CDT EKG 12 LEAD STAT 01/18/2025 11:39 AM CDT RHYTHM STRIP 01/18/2025 12:00 AM CDT EKG SCAN 01/18/2025 12:00 AM CDT EKG 12 LEAD STAT 01/10/2025 3:42 PM CDT EKG SCAN 01/10/2025 12:00 AM CDT TROPONIN I, HIGH SENSITIVITY (HSTRP) STAT 12/12/2024 10:56 AM CDT XR CHEST SINGLE VIEW PORTABLE STAT 12/12/2024 9:[address] HEAD OR BRAIN WO CONTRAST Stat with Interpretation 12/12/2024 9:08 AM CDT GOLD TOP TUBE STAT 12/12/2024 8:57 AM CDT CBC WITH AUTO DIFFERENTIAL STAT 12/12/2024 8:57 AM CDT EXTRA TUBES STAT 12/12/2024 8:57 AM CDT PROTIME (PT) (PROTHROMBIN TIME) STAT 12/12/2024 8:57 AM CDT TROPONIN I, HIGH SENSITIVITY (HSTRP) STAT 12/12/2024 8:57 AM CDT COMPLETE BLOOD COUNT (CBC) WITH DIFF STAT 12/12/2024 8:57 AM CDT CMP (COMPREHENSIVE METABOLIC PANEL) STAT 12/12/2024 8:57 AM CDT EKG 12 LEAD STAT 12/12/2024 8:51 AM CDT EKG SCAN 12/12/2024 12:00 AM CDT RHYTHM STRIP 12/12/2024 12:00 AM CDT XR LUMBAR SPINE 2 OR 3 VIEWS STAT 12/08/2024 5:59 AM CDT from Last 3 Months Results * (ABNORMAL) Urinalysis w/ Reflex (01/18/2025 1:12 PM CDT) SPECIFIC GRAVITY 1.010 1.003 - 1.030 01/18/2025 2:12 PM CDT [facility] URINE PH 7.0 5.0 - 9.0 01/18/2025 2:12 PM CDT [facility] WBC ESTERASE 25 /ul(A) Negative 01/18/2025 2:12 PM CDT [facility] NITRITE Negative Negative 01/18/2025 2:12 PM CDT [facility] PROTEIN, RANDOM URINE Negative Negative 01/18/2025 2:12 PM CDT [facility] URINE GLUCOSE, QUAL Negative Negative 01/18/2025 2:12 PM CDT [facility] URINE KETONES Negative Negative 01/18/2025 2:12 PM CDT [facility] UROBILINOGEN Normal Normal mg/dL 01/18/2025 2:12 PM CDT [facility] URINE BLOOD 10 /uL(A) Negative lolly/ul 01/18/2025 2:12 PM CDT [facility] URINALYSIS COLOR Yellow 01/18/2025 2:12 PM CDT [facility] URINALYSIS CLARITY Slightly Cloudy 01/18/2025 2:12 PM CDT [facility] WBC (Urine) 6-10(A) Negative, 0-5 /hpf 01/18/2025 2:12 PM CDT [facility] URINE RBC'S 0-2 Negative, 0-2 /hpf 01/18/2025 2:12 PM CDT [facility] EPITHELIAL CELLS Occasional /lpf 01/18/2025 2:12 PM CDT [facility] BACTERIA, URINE Moderate(A) Negative /hpf 01/18/2025 2:12 PM CDT [facility] Urine URINE SPECIMEN / Unknown Non-Phlebotomy Collection / Unknown 01/18/2025 1:12 PM CDT 01/18/2025 1:34 PM CDT us Delma Sethi APRN, WATER SOFTENER SERVICE SUPERVISOR URINE ORDERABLES F inal Result [facility] [address] [place] [address] * Ur Test Qual (01/18/2025 1:12 PM CDT) PREG TEST,MONOCLONA L Negative 01/18/2025 2:13 PM CDT [facility] Urine URINE SPECIMEN / Unknown Non-Phlebotomy Collection / Unknown 01/18/2025 1:12 PM CDT 01/18/2025 1:34 PM CDT us Delma Sethi APRN, WATER SOFTENER SERVICE SUPERVISOR URINE ORDERABLES F inal Result Performing Organization Address City/[facility]/ZIP Co de Phone Number [facility] [address] [place] [address] * Culture, Urine (01/18/2025 1:12 PM CDT) CULTURE RESULTS KLEBSIELLA PNEUMONIAE 01/20/2025 4:15 PM CDT [facility] CULTURE RESULTS Also mixed growth of distal urethral contaminants 01/20/2025 4:15 PM CDT [facility] Urine URINE SPECIMEN / Unknown Non-Phlebotomy Collection / Unknown 01/18/2025 1:12 PM CDT 01/18/2025 1:34 PM CDT Narrative Organism Antibiotic Method Susceptibility Klebsiella pneumoniae Ampicillin/sulbactam [facility] VITEK II 4 mcg/ml: Susceptible Klebsiella pneumoniae Cefepime [facility] VITEK II <=0.12 mcg/ml: Susceptible Klebsiella pneumoniae Ceftriaxone [facility] VITEK II <=0.25 mcg/ml: Susceptible Klebsiella pneumoniae Gentamicin [facility] V[facility] II <=1 mcg/ml: Susceptible Klebsiella pneumoniae Levofloxacin [facility] V[facility] II <=0.12 mcg/ml: Susceptible Klebsiella pneumoniae Meropenem [facility] VITEK II <=0.25 mcg/ml: Susceptible Klebsiella pneumoniae Nitrofurantoin [facility] VITEK II 64 mcg/ml: Intermediate Klebsiella pneumoniae Piperacillin/Tazobactam [facility] VIT EK II <=4 mcg/ml: Susceptible Klebsiella pneumoniae Trimeth/Sulfamethoxazole [facility] MAGAN II <=20 mcg/ml: Susceptible us Delma Sethi MENTAL RETARDATION NURSE, WATER SOFTENER SERVICE SUPERVISOR MICROBIOLOGY - GEN ERAL ORDERABLES Final Result [facility] [address] [place] [address], [place] * Urine Drug Screen (01/18/2025 1:12 PM CDT) UR AMPHETAMINE NON DETECTED NON DETECTED 01/18/2025 1:50 PM CDT [facility] Comment: FOR MEDICAL USE ONLY. CUTOFF CONCENTRATION FOR DETECTED RESULT: AMPHETAMINE: 500 NG/ML UR BENZODIAZEPINES NON DETECTED NON DETECTED 01/18/2025 1:50 PM CDT [facility] Comment: FOR MEDICAL USE ONLY. CUTOFF CONCENTRATION FOR DETECTED RESULT: BENZODIAZAPINE: 200 NG/ML UR COCAINE METABOLITE NON DETECTED NON DETECTED 01/18/2025 1:50 PM CDT [facility] Comment: FOR MEDICAL USE ONLY. CUTOFF CONCENTRATION FOR DETECTED RESULT: COCAINE: 150 NG/ML UR OPIATES NON DETECTED NON DETECTED 01/18/2025 1:50 PM CDT [facility] Comment: FOR MEDICAL USE ONLY. CUTOFF CONCENTRATION FOR DETECTED RESULT: OPIATES: 300 NG/ML UR PHENCYCLIDINE NON DETECTED NON DETECTED 01/18/2025 1:50 PM CDT [facility] Comment: FOR MEDICAL USE ONLY. CUTOFF CONCENTRATION FOR DETECTED RESULT: PCP: 25 NG/ML UR CANNABINOID NON DETECTED NON DETECTED 01/18/2025 1:50 PM CDT [facility] Comment: FOR MEDICAL USE ONLY. CUTOFF CONCENTRATION FOR DETECTED RESULT: THC (MARIJUANA): 50 NG/ML UR BARBITURATE NON DETECTED NON DETECTED 01/18/2025 1:50 PM CDT [facility] Comment: FOR MEDICAL USE ONLY. CUTOFF CONCENTRATION FOR DETECTED RESULT: BARBITUATES: 200 NG/ML UR FENTANYL NON DETECTED NON DETECTED 01/18/2025 1:50 PM CDT [facility] Comment: FOR MEDICAL USE ONLY. CUTOFF CONCENTRATION FOR DETECTED RESULT: FENTANYL: 1.0 NG/ML Urine Non-Phlebotomy Collection / Unknown 01/18/2025 1:12 PM CDT 01/18/2025 1:36 PM CDT Delma Sethi MENTAL RETARDATION NURSE, WATER SOFTENER SERVICE SUPERVISOR URINE ORDERABLES F inal Result Performing Organization Address City/[facility]/ZIP Co de Phone Number [facility] [address] [place] [address] * TROPONIN I, HIGH SENSITIVITY (HSTRP) (01/18/2025 11:45 AM CDT) Only the most recent of3 resultswithin the time period is included. Pathologist [facility] TROPONIN I, HIGH SENSITIVITY- GRAVES <3 <=14 ng/L 01/18/2025 12:50 PM CDT [facility] Comment: High-sensitivity troponin I results are reported in ng/L making the result appear to be 1,000 times higher than the contemporary troponin I value which is reported in ng/ml. Results from [facility]. Blood Venipuncture / Unknown 01/18/2025 11:45 AM CDT 01/18/2025 12:13 PM CDT Delma Sethi APRN, WATER SOFTENER SERVICE SUPERVISOR CHEMISTRY ORDERABL ES Final Result Performing Organization Address [facility] Co de Phone Number [facility] [address] [place] [address] * CBC with Auto Differential (01/18/2025 11:45 AM CDT) Only the most recent of2 resultswithin the time period is included. [facility] WBC 8.24 4.00 - 12.00 10(3)/mcL 01/18/2025 12:16 PM CDT [facility] RBC 4.23 3.80 - 5.30 10(6)/mcL 01/18/2025 12:16 PM CDT [facility] HEMOGLOBIN (HGB) 12.1 12.0 - 15.8 g/dL 01/18/2025 12:16 PM CDT [facility] HEMATOCRIT (HCT) 38.8 36.0 - 47.0 % 01/18/2025 12:16 PM CDT [facility] MCV 91.7 82.0 - 96.0 fL 01/18/2025 12:16 PM CDT [facility] MCH 28.6 26.0 - 34.0 pg 01/18/2025 12:16 PM CDT [facility] MCHC 31.2 31.0 - 36.0 g/dL 01/18/2025 12:16 PM CDT [facility] PLATELET COUNT 265 140 - 440 10(3)/mcL 01/18/2025 12:16 PM CDT [facility] RDW 13.4 11.8 - 15.5 % 01/18/2025 12:16 PM CDT [facility] MPV 10.7 9.7 - 12.4 fL 01/18/2025 12:16 PM CDT [facility] NEUTROPHILS 69.2 47.0 - 73.0 % 01/18/2025 12:16 PM CDT [facility] LYMPHOCYTES 24.2 18.0 - 42.0 % 01/18/2025 12:16 PM CDT [facility] MONOCYTES 4.5 4.0 - 12.0 % 01/18/2025 12:16 PM CDT [facility] EOSINOPHILS 1.9 0.0 - 5.0 % 01/18/2025 12:16 PM CDT [facility] BASOPHILS 0.2 0.0 - 1.0 % 01/18/2025 12:16 PM CDT [facility] ABSOLUTE NEUTROPHILS 5.70 1.60 - 7.70 10(3)/mcL 01/18/2025 12:16 PM CDT [facility] ABSOLUTE LYMPHOCYTES 1.99 1.30 - 3.20 10(3)/mcL 01/18/2025 12:16 PM CDT [facility] ABSOLUTE MONOCYTES 0.37 0.20 - 1.00 10(3)/mcL 01/18/2025 12:16 PM CDT [facility] ABSOLUTE EOSINOPHIL 0.16 0.00 - 0.40 10(3)/mcL 01/18/2025 12:16 PM CDT [facility] ABSOLUTE BASOPHILS 0.02 0.00 - 0.10 10(3)/mcL 01/18/2025 12:16 PM CDT [facility] NRBC PER 100 WBC 0 01/19/20 12:16 PM CDT [facility] Blood Venipuncture / Unknown 01/18/2025 11:45 AM CDT 01/18/2025 12:13 PM CDT us Delma Sethi APRN, SHIV HEMATOLOGY ORDERAB LES Final Result [facility] [address] [place] [address] * (ABNORMAL) CMP (01/18/2025 11:45 AM CDT) Only the most recent of2 resultswithin the time period is included. SODIUM 141 136 - 145 mmol/L 01/18/2025 12:45 PM CDT [facility] POTASSIUM 3.9 3.5 - 5.1 mmol/L 01/18/2025 12:45 PM CDT [facility] CHLORIDE 108(H) 98 - 107 mmol/L 01/18/2025 12:45 PM CDT [facility] CO2, VENOUS 24 22 - 30 mmol/L 01/18/2025 12:45 PM CDT [facility] ANION GAP 12.9 <18.0 mmol/L 01/18/2025 12:45 PM CDT [facility] GLUCOSE 102(H) 70 - 99 mg/dL 01/18/2025 12:45 PM CDT [facility] BUN 8 5 - 18 mg/dL 01/18/2025 12:45 PM CDT [facility] CREATININE, BLOOD 0.77 0.60 - 1.00 mg/dL 01/18/2025 12:45 PM CDT [facility] BUN/CREATININE RATIO 10(L) 12 - 20 ratio 01/18/2025 12:45 PM CDT [facility] TOTAL PROTEIN 7.2 6.0 - 8.0 g/dL 01/18/2025 12:45 PM CDT [facility] ALBUMIN 3.6 3.5 - 5.0 g/dL 01/18/2025 12:45 PM CDT [facility] A/G RATIO 1.0 1.0 - 2.2 01/18/2025 12:45 PM CDT [facility] CALCIUM 8.6(L) 8.7 - 10.5 mg/dL 01/18/2025 12:45 PM CDT [facility] T BILI 0.4 0.2 - 1.2 mg/dL 01/18/2025 12:45 PM CDT [facility] SGOT (AST) 21 <43 U/L 01/18/2025 12:45 PM CDT [facility] SGPT (ALT) 15 <56 U/L 01/18/2025 12:45 PM CDT [facility] ALKALINE PHOSPHATASE 90 40 - 150 U/L 01/18/2025 12:45 PM CDT [facility] GFR, ESTIMATED >60 >=60 01/18/2025 12:45 PM CDT [facility] Comment: Creatinine Clearance is the preferred criteria for selecting drug dose adjustments in renally impaired patients. The GFR is provided as additional pertinent clinical information. GFR is reported in mL/min/1.73 sq m. Calculation based on the Chronic Kidney Disease Epidemiology Collaboration (CKD- EPI) equation refit without adjustment for race. GFR, EST. >60 >=60 025 12:45 PM CDT [facility] GFR, EST. NONAFRICAN >60 >=60 01/18/2025 12:45 PM CDT [facility] Blood Venipuncture / Unknown 01/18/2025 11:45 AM CDT 01/18/2025 12:13 PM CDT us Delma Sethi MENTAL RETARDATION NURSE, WATER SOFTENER SERVICE SUPERVISOR CHEMISTRY ORDERABL ES Final Result [facility] [address] [facility] [address] * EKG 12 LEAD (01/18/2025 11:39 AM CDT) Only the most recent of3 resultswithin the time period is included. Ventricular Rate 76 BPM EXTERNAL EKG Atrial Rate 76 BPM EXTERNAL EKG P-R Interval 130 ms EXTERNAL EKG QRS Duration 138 ms EXTERNAL EKG Q-T Duration 418 ms EXTERNAL EKG QTC CALCULATION 470 ms EXTERNAL EKG P [place] 53 degrees EXTERNAL EKG R [place] 4 degrees EXTERNAL EKG T [place] 14 degrees EXTERNAL EKG 01/18/2025 11:3 9 AM CDT Impressions EXTERNAL EKG - 01/21/2025 11:56 PM CDT Normal sinus rhythm Right bundle branch block Abnormal ECG When compared with ECG of 10-JAN-2025 15:42, No significant change was found Confirmed by Carly Zavala ([id number]) on 01/21/2025 11:56:48 PM Narrative Procedure Note Carly Zavala MD - 01/21/2025 IMPRESSION: Normal sinus rhythm Right bundle branch block Abnormal ECG When compared with ECG of 10-JAN-2025 15:42, No significant change was found Confirmed by Carly Zavala ([id number]) on 01/21/2025 11:56:48 PM us Miguel Angel Sims MD IMG ECG ORDERABLES Final Result EXTERNAL EKG * RHYTHM STRIP (01/18/2025 12:00 AM CDT) Only the most recent of2 resultswithin the time period is included. 01/18/2025 us Provider Scan IMG ECG ORDERABLES Final Result [facility] * EKG SCAN (01/18/2025 12:00 AM CDT) Only the most recent of3 resultswithin the time period is included. 01/18/2025 Narrative [id number]|2025-01-30 09:25:00|2025-01-30 09:25:00|XMS_ITS|NEETU HYMAN|External Medical Summaries|[id number]|" CONTINUITY OF CARE DOCUMENT Created on: January 30, 2025 Velasco Lizeth : 1990 Sex: Female Author Name [email or web address], qieuser Address Unknown Organization [facility] Address [address] [place] [address] Phone [phone] Care Team Providers Care Geochemistry Teacher Name Role Phone Melanie Negro MD Unavailable [phone] RONALD SANCHEZ MD Unavailable [phone] RONALD SANCHEZ MD Unavailable PROBLEMS Condition Status Date Provider Notes Family History of Hypertension: active ? Melanie Negro MD Sick sinus syndrome active Melanie Negro MD Postural orthostatic tachycardia syndrome active Melanie Negro MD Pacemaker- [employer] MRI SAFE active Anastasiia Kumar TRAINING LEAD Syncope active Melanie Negro MD SLEEP APNEA- ? active Melanie Negro MD Ventricular tachycardia, nonsustained active Hank David Preoperative cardiovascular evaluation active Melanie Negro MD for pregnanc y Edema - localized active Melanie Vásquez Personal history of COVID-19 active Melanie Negro MD Hypertension active Melanie Negro MD Cardiology examination active Melanie pedro MD SVT active Zulma Dulce Maria POWER PLANT MECHANIC Cardiology examination active Delilah walter MD ENCOUNTERS Date Type Provider Location Encounter Diag nosis - In-person encounter Office Visit Delilah Yanez MD [place] [facility] Cardiology examination - In-person encounter Office Visit Melanie Negro MD [place] [facility] - In-person encounter Office Visit Melanie Negro MD [place] [facility] - In-person encounter Office Visit Delilah Yanez MD [place] [facility] - In-person encounter Office Visit Delilah Yanez MD [place] [facility] SVT - In-person encounter Office Visit Melanie Negro MD [place] [facility] - In-person encounter Office Visit Delilah Yanez MD [place] [facility] Pacemaker- [employer] MRI SAFE - In-person encounter Office Visit Delilah Yanez MD [place] [facility] Pacemaker- [employer] MRI SAFE - In-person encounter Office Visit Melanie Negro MD [place] [facility] Cardiology examination - In-person encounter Office Visit Melanie Negro MD [place] [facility] Hypertension - In-person encounter Office Visit Raad Minor MD [place] [facility] - In-person encounter Office Visit Melanie Negro MD [place] [facility] Personal history of COVID-19 - In-person encounter Office Visit Melanie Negro MD [place] [facility] - In-person encounter Office Visit Melanie Negro MD [place] [facility] - In-person encounter Office Visit Melanie Negro MD [place] [facility] - In-person encounter Office Visit Melanie Negro MD [facility] Edema - localized - In-person encounter Office Visit Melanie Negro MD [facility] - In-person encounter Office Visit Delilah Yanez MD [place] [facility] - In-person encounter Office Visit Melanie Negro MD [place] [facility] - In-person encounter Office Visit Melanie Negro MD [facility] Preoperative cardiovascular evaluation - In-person encounter Office Visit Delilah Yanez MD [place] [facility] Ventricular tachycardia, nonsustained - In-person encounter Office Visit Melanie Negro MD [facility] - In-person encounter Office Visit Melanie Negro MD [facility] Family History of Hypertension:Sick sinus syndromePostural orthostatic tachycardia syndromeP[facility] MRI SAFESyncopeSLEEP APNEA- ? VITAL SIGNS Date Observation Value Provider Body Mass Index (Ratio) 56.14 kg/m2 Chris Yanez MD blood pressure, diastolic 74 mm[Hg] Alejandro spencerhoma Ballesteros blood pressure, systolic 112 mm[Hg] Keaton thorrobe Ballesteros weight E&M 307 [lb_av] Susan Favian pulse rate 79 /min Susan Ballesteros oxygen saturation, oximetry 100 % Susanrobe Ballesteros blood pressure, cuff size large Alejandro spencerhoma Ballesteros respiratory rate E&M 12 /min Susanrobe Ballesteros height E&M 62 [in_i] Susanrobe Ballesteros Body Mass Index (Ratio) 54.50 kg/m2 Edward Negro MD pulse rate 96 /min Susan Crete blood pressure, cuff size large Alejandro jerome Crete blood pressure, diastolic 58 mm[Hg] Alejandro jerome Crete blood pressure, systolic 116 mm[Hg] Keaton huynh Crete oxygen saturation, oximetry 98 % Susan Crete weight E&M 298 [lb_av] Susan Crete respiratory rate E&M 12 /min Susan Crete height E&M 62 [in_i] Susan Crete blood pressure, diastolic 90 mm[Hg] Karlie nkLog blood pressure, systolic 166 mm[Hg] Sandy [facility] respiratory rate E&M 16 /min Venancio pulse rate 90 /min Venancio blood pressure, diastolic 90 mm[Hg] Ta puga blood pressure, cuff size large An jose guadalupe Robert height E&M 62 [in_i] Pina Robert blood pressure, systolic 166 mm[Hg] Jar ret Body Mass Index (Ratio) 55.41 kg/m2 Kimani Ga blood pressure, diastolic 69 mm[Hg] An jose guadalupe Jones blood pressure, systolic 94 mm[Hg] Any a Robert pulse rate 71 /min Pina Robert oxygen saturation, oximetry 99 % Pina Robert weight E&M 303 [lb_av] Pina Rboert height E&M 62 [in_i] Pina Robert blood pressure, cuff size large An jose guadalupe Robert Body Mass Index (Ratio) 55.41 kg/m2 Kimani Ga blood pressure, cuff size large Ke rri Arlet blood pressure, diastolic 80 mm[Hg] Ke rri Chrisueneramaelder blood pressure, systolic 132 mm[Hg] Russell Peoplesnenfelder oxygen saturation, oximetry 98 % Sintia Grkhadarnfelder respiratory rate E&M 12 /min Sintia sotonfelder pulse rate 84 /min Sintia Brunoe lder weight E&M 303 [lb_av] Sintia Peoplesnenfe er height E&M 62 [in_i] Sintia Peoplesnenfe er Body Mass Index (Ratio) 54.13 kg/m2 Edward Negor MD blood pressure, diastolic 64 mm[Hg] Karlie nkLogic blood pressure, systolic 99 mm[Hg] Sandy kLogic blood pressure, cuff size large Ja rr blood pressure, diastolic 64 mm[Hg] Ja rret blood pressure, systolic 99 mm[Hg] Jar ret weight E&M 296 [lb_av] Venancio y respiratory rate E&M 12 /min Venancio oxygen saturation, oximetry 98 % Venancio pulse rate 68 /min Venancio y height E&M 62 [in_i] Venancio y Body Mass Index (Ratio) 52.49 kg/m2 Kimani Ga blood pressure, diastolic 76 mm[Hg] Juve ferreira Fendler TRAINING LEAD blood pressure, systolic 128 mm[Hg] Gerda smith Fendler TRAINING LEAD oxygen saturation, oximetry 99 % Brenna Fendler TRAINING LEAD respiratory rate E&M 18 /min Dennis r Fendler TRAINING LEAD pulse rate 83 /min Brenna Fendle r TRAINING LEAD weight E&M 287 [lb_av] Brenna hannon TRAINING LEAD Body Mass Index (Ratio) 52.30 kg/m2 Chris Yanez MD blood pressure, cuff size large Ke rri Gruenenfproctor hospitaldarryn blood pressure, diastolic 79 mm[Hg] Ke rri Gruenenfelder blood pressure, systolic 132 mm[Hg] Russell ri Arlet oxygen saturation, oximetry 98 % Sintia Arlet respiratory rate E&M 16 /min Sintia G monicaeneyared pulse rate 80 /min Sintia [facility] weight E&M 286 [lb_av] Sintia [facility] height E&M 62 [in_i] Sintia [facility] Body Mass Index (Ratio) 52.12 kg/m2 Edward Negro MD blood pressure, cuff size regular Beth Babcock blood pressure, diastolic 88 mm[Hg] Beth Babcock blood pressure, systolic 102 mm[Hg] Byrd ananda Babcock oxygen saturation, oximetry 97 % Sonia Babcock respiratory rate E&M 16 /min Sonia Babcock pulse rate 95 /min Sonia Babcock weight E&M 285 [lb_av] Sonia Babcock height E&M 62 [in_i] Sonia Babcock Body Mass Index (Ratio) 47.92 kg/m2 Edward Negro MD weight E&M 262 [lb_av] Margarita [place] oxygen saturation, oximetry 99 % Margarita [place] respiratory rate E&M 16 /min Catheri ne [place] pulse rate 85 /min Margarita [place] blood pressure, cuff size regular Ca therine [...] blood pressure, systolic 120 mm[Hg] Ker ri Gruenenfelder oxygen saturation, oximetry 96 % Sintia Gruenenfelder respiratory rate E&M 14 /min Sintia G ruenenfelder pulse rate 89 /min Sintia Grueneramae lder weight E&M 274 [lb_av] Sintia Gruenenfe lder height E&M 62 [in_i] Sintia Gruenenfe lder Body Mass Index (Ratio) 53.40 kg/m2 Edward Negro MD blood pressure, diastolic 60 mm[Hg] Karlie nkLogic blood pressure, systolic 110 mm[Hg] Sandy kLogic blood pressure, diastolic 60 mm[Hg] Viviane Schneider blood pressure, systolic 110 mm[Hg] Beena Schneider oxygen saturation, oximetry 98 % Jamie Schneider respiratory rate E&M 16 /min Guille Schneider pulse rate 98 /min Jamie golden weight E&M 292 [lb_av] Jamie golden height E&M 62 [in_i] Jamie Larson julio cesareloy Body Mass Index (Ratio) 53.04 kg/m2 Edward Negro MD blood pressure, cuff size large Ke rri Gruenenfjanae blood pressure, diastolic 80 mm[Hg] Ke rri Chrisuenenfjanae blood pressure, systolic 122 mm[Hg] Ker ri Sheltonnenfjanae oxygen saturation, oximetry 98 % Sintia Arlet respiratory rate E&M 16 /min Sintia G monicaeneyared pulse rate 70 /min Sintia Gruenenfe lder weight E&M 290 [lb_av] Sintia Gruenenfe lder height E&M 62 [in_i] Sintia Gruenenfe lder Body Mass Index (Ratio) 51.72 kg/m2 Edward Negro MD blood pressure, diastolic 60 mm[Hg] Viviane Jones Schneider blood pressure, systolic 104 mm[Hg] Beena Schneider oxygen saturation, oximetry 98 % Jamie Schneider respiratory rate E&M 18 /min Guille Schneider pulse rate 70 /min Jamie golden weight E&M 282.8 [lb_av] Jamie willison height E&M 62 [in_i] Jamie Larson julio cesareloy Body Mass Index (Ratio) 49.01 kg/m2 Colin Mart blood pressure, diastolic 90 mm[Hg] To nsha Florian blood pressure, systolic 119 mm[Hg] Ton [facility] [place] pulse rate 94 /min Tons Florian respiratory rate E&M 18 /min [facility] Florian oxygen saturation, oximetry 99 % [facility] Florian weight E&M 268 [lb_av] [facility] Florian height E&M 62 [in_i] [facility] Body Mass Index (Ratio) 44.73 kg/m2 Edward Negro MD blood pressure, cuff size regular Kr pedro luis Christelle blood pressure, diastolic 70 mm[Hg] Kr isty Christelle blood pressure, systolic 100 mm[Hg] Solomon mix [place] oxygen saturation, oximetry 99 % Ginna Christelle pulse rate 87 /min Ginna Christelle respiratory rate E&M 17 /min Ginna [place] weight E&M 244.6 [lb_av] Ginna Christelle height E&M 62 [in_i] Ginna [place] Body Mass Index (Ratio) 43.34 kg/m2 Nataliia Varela blood pressure, cuff size regular Cy addisonrobe Almaguer blood pressure, diastolic 70 mm[Hg] Cy elle Almaguer blood pressure, systolic 114 mm[Hg] Kim kristy Almaguer respiratory rate E&M 16 /min Pam Almaguer oxygen saturation, oximetry 97 % Pam Almaguer pulse rate 93 /min Pam Campbel l weight E&M 237 [lb_av] Pam Campbel l height E&M 62 [in_i] Pam Campbel l Body Mass Index (Ratio) 43.16 kg/m2 Edward Negro MD blood pressure, diastolic 60 mm[Hg] Carl Sunshine blood pressure, systolic 100 mm[Hg] Bipin Briceam oxygen saturation, oximetry 98 % Natalia respiratory rate E&M 16 /min [place] pulse rate 104 /min [place] weight E&M 236 [lb_av] Natalia Sunshine height E&M 62 [in_i] Natalia Sunshine [...] Body Mass Index (Ratio) 48.10 kg/m2 Nam us David blood pressure, cuff size regular Cy ntlina Tripp blood pressure, diastolic 80 mm[Hg] Cy nthia Almaguer blood pressure, systolic 122 mm[Hg] Kim mainrobe Almaguer oxygen saturation, oximetry 98 % Pam Almaguer respiratory rate E&M 16 /min Pam [place]maguer pulse rate 94 /min Pam Campbel l weight E&M 263 [lb_av] Pam Campbel l height E&M 62 [in_i] Pam Campbel l Body Mass Index (Ratio) 49.20 kg/m2 Celia Nava blood pressure, cuff size large Ke rri Gruenenfmomoer blood pressure, diastolic 80 mm[Hg] Ke rri Gruenenfelder blood pressure, systolic 120 mm[Hg] Ker ri Chrisueneyared oxygen saturation, oximetry 96 % Sintia Brunomomodarryn respiratory rate E&M 24 /min Sintia moralesmomodarryn pulse rate 98 /min Sintia [facility] weight E&M 269 [lb_av] Sintia [facility] height E&M 62 [in_i] Sintia [facility] Body Mass Index (Ratio) 48.13 kg/m2 Edward Negro MD blood pressure, resting Yes Ashley Schneider blood pressure, diastolic 68 mm[Hg] Viviane Jones Schneider blood pressure, systolic 107 mm[Hg] Beena Navarro Schneider oxygen saturation, oximetry 98 % Jamie Schneider respiratory rate E&M 18 /min Guille Schneider pulse rate 81 /min Jamie Larson julio cesareloy weight E&M 263.2 [lb_av] Jamie velasquez height [...] High 7 cholesterol, serum 191 mg/dL LinkLogic 136-182 6405/02/1 7 platelet count 413 X10E3/UL LinkLogic 150-379 [...] 3.5-5.2 7 sodium, serum 142 mmol/L LinkLogic 218-939 9997/02/1 7 urea nitrogen/creatinine ratio, serum 13 LinkLogic 9-23 7 eGFR if not 94 mL/min/{1 .73_m2} LinkLogic >59 7 creatinine, serum 0.86 mg/dL LinkLogic 0.57-1.00 7 urea nitrogen, blood 11 mg/dL LinkLogic 6-20 7 blood glucose, random 81 mg/dL LinkLogic 65-99 HISTORY OF MEDICATION USE Medication Status Instructions Dates Provider Indications Com ments topiramate 50 mg tablet active Susanlino Ballesteros clobetasol 0.05% solution active Susanlino Ballesteros [...] tablet by mouth once a day - Ibuprofen IB 200 mg tablet completed Take [...] HOUR completed 1/2 TAB DAILY - Pam Tripp SPRINTEC 28 0.25-35 MG-MCG ORAL TABLET completed [...] history of marijuana use no Brenna Kumar TRAINING LEAD drug use no Brenna Chase r TRAINING LEAD alcohol use no Brenna Chase r TRAINING LEAD smoking status Never smoker Brenna hodges TRAINING LEAD personal history of marijuana use no Zulma Ventimiglia [facility] drug use no Zulma Ventimig sai [facility] alcohol use no Zulma Ventimig sai [facility] smoking status Never smoker Zulma Ventim iglia [facility] social history E&M S moking History: Aimee marin has never smoked. Melanie Negro MD social history reviewed E&M revi ewed - no changes required Melanie Negro MD smoking status Never smoker Pina Jones social history reviewed E&M revi ewed - no changes required Joseph Guy NP social history E&M S moking History: Aimee marin has never smoked. Joseph Bonareri TRAINING LEAD Exercise counseling yes Pina meyer smoking status Never smoker Pina Robert drug use no Zulma Ventimig sai [employer] alcohol use no Zulma Ventimig sai [employer] smoking status Never smoker Zulma Ventim iglia [employer]CH[employer] social history reviewed E&M revi ewed - no changes required Hiramsanaz Phamri TRAINING LEAD social history E&M S moking History: Aimee marin has never smoked. Joseph Hickmanreri TRAINING LEAD drug use no Joseph Hickmanreri TRAINING LEAD alcohol use no Joseph Hickmanreri TRAINING LEAD smoking status Never smoker Joseph Juan Pablo nieves TRAINING LEAD smoking status Never smoker Brenna hodges TRAINING LEAD Exercise counseling yes Brenna Kumar NP social history reviewed E&M revi ewed - [...] Negro MD smoking status Never smoker Jamie Paco salas social history E&M S moking History: Aimee marin has never smoked. Melanie Negro MD social history reviewed E&M revi ewed - no changes required Melanie Negro MD smoking status Never smoker Sintia walker social history E&M S moking History: P [...] - no changes required Melanie Negro MD number of grandchildren Melanie Negro MD smoking status Never smoker Ginna Bourgeois number of grandchildren Delilah Varela handedness L Handed Ye Varela social history reviewed E&M revi ewed - no changes required Ye Varela smoking status Never smoker Pam capps social history reviewed E&M revi ewed - no changes required Melanie Negro MD social history E&M S moking History: Aimee marin has never smoked. Melanie Negro MD smoking status Never smoker Natalia randle number of grandchildren Melanie Varela Plurad social history E&M S moking History: Aimee marin has never smoked. Melanie Negro MD social history reviewed E&M revi ewed - no changes required Melanie Negro MD smoking status Never smoker Janna Carroll number of grandchildren Delilah Yanez MD Hank David social history reviewed E&M revi ewed - no changes required Hank David social history E&M S moking History: Aimee marin has never smoked. Hank David smoking status Never smoker Pam Pascal jefry social history reviewed E&M revi ewed - no changes required Melanie Negro MD social history E&M S moking History: Aimee marin has never smoked. Melanie Negro MD smoking status Never smoker Sintia Mercado aaron number of grandchildren Melanie Negro MD social [...] Payer name Policy type / Coverage type [place] [employer] [place] [employer] MEDICA[employer] Medicaid [id number] ADVANCE DIRECTIVES Name Date DISCUSSED - NO DECISION MADE TREATMENT PLAN Date Name Performer [id number],S,D ocumented BP reading is from patient's home BP readings due to white coat hypertension. Melanie Negro MD [id number],S,C ONCLUSIONS: 1 . Normal left ventricular systolic [...] 06/08/2023 at 8:33 AM Melanie Negro MD [id number],C, T he patient is using CPAP on a regular basis. The patient has been benefiting from therapy and should continue use. Melanie Negro MD [id number],C,pacemaker Leodan Negro MD [id number],C,p ost ablation n otices improvement, less frequency of LOC c urrently on flecanide and BB Melanie Negro MD [id number],C, D evice check on 03/16/2023 showed 9 NS-VT events longest 1 sec, fastest 200bpm and 24 SVT events longest 2:52 minutes, fastest 16 bpm. July 04, 2023 s ees SK Melanie Negro MD [id number],C, N o recurrence Joseph Guy NP [id number],C, n ormal device function. U ses compression stockings. Joseph Guy NP [id number],C, L ast device check 06/22/23. Normal device function. Joseph Guy NP [id number],C, T he patient is using CPAP on a regular basis. The patient has been benefiting from therapy and should continue use. Joseph Guy NP [id number],C, B P today: 94/69 P rior BP: 132/80 (06/01/2023) Labs Reviewed: C reat: 0.86 (11/03/2017) C hol: 191 (11/03/2017) HDL: 37 (11/03/2017) Her updated medication list for this problem includes: Metoprolol Succinate 25 Mg Tablet Extended Release 24 Hr (Metoprolol succinate) ..... Take 1 tablet by mouth once a day Joseph Guy NP [id number],C, S he is s/p ablation on 06/14. S he is on BB and Flecainide Joseph Guy NP [id number],W,Dual chamber PPM in place Zulma العراقي [facility] [id number],C,T he patient is using CPAP on a regular basis. The patient has been benefiting from therapy and should continue use. Zulma العراقي [facility] [id number],W,N oted on last in office device check. [...] 1 tablet by mouth once a day Zulmagonzález العراقي [facility] [id number],W,P atient has had recurrent episodes of syncope associated with dizziness and palpitations. P revious device check in office showed episode of SVT rate up to 200 bpm S he has delta wave noted on EKG today and concern for accessory pathway. S he would benefit from ablation and will arrange H er updated medication list f
--- OUTSIDE RECORDS SUMMARY | 2025-01-30 09:24 | XMS_ITS | Encounter Summary ---
Author Organization [facility] Address [address] [place] [address] Phone Care Team Providers Care Fiberglasser Name Role Phone Manoj Obregon MD Primary Care Provider [phone] Linda Santacruz MD Primary Care Provider [phone] Alberta Bernardo PT Unavailable Darlene Obregon MD Primary Care Provider Opal Jensen PT Unavailable Unavailable Delilha Yanez MD Unavailable Encounter Details Date Type Department Care Team (Late st Contact Info) Description 12/15/2017 Orders Only [facility] Provider, MD Gin [address] [place] [address] Social History Tobacco Use Types Packs/Day Years Used Date Smoking Tobacco: Never Smokeless Tobacco: Never Alcohol Use Standard Drinks/Week Comments No 0 (1 standard drink = 0.6 oz pur e alcohol) Comments No Sex and Gender Information Value Date Recorded Sex Assigned at Not on file 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 us Historical Provider [facility] PROCE DURES Final Result * CARDIOLOGY REPORT (12/15/2017) Anatomical Region Laterality Modality Other Narrative 12/15/2017 Ordered by an unspecified provider. Historical Provider [facility] PROCE DURES Final Result documented in this encounter Visit Diagnoses Not on filedocumented in this encounter Care Teams Fiberglasser Relationship Specialty Start Date End Date Manoj Obregon MD [address] [place] [address] PCP - General 12/15/16 09/22/18 Linda Santacruz MD [address] [place] [address] PCP - General 09/23/18 07/23/19 [place] [address] [place] [address] PCP - General Internal Medicine 04/25/22 [place] [address] [place] [address] Physical Therapist Physical Therapy 01/18/22 Opal Jensen, PT Physical Therapist Physical Therapy 06/16/22 Delilah Yanez MD [address] [place] [address] Consulting Physician Cardiology 06/15/23 documented as of this encounter
--- OUTSIDE RECORDS SUMMARY | 2025-01-30 09:24 | XMS_ITS | Encounter Summary ---
Author Organization [facility] Address [address] [place] [address] Phone Care Team Providers Care Acid Adjuster Name Role Phone Manoj Obregon MD Primary Care Provider [phone] Manoj Obregon MD Primary Care Provider [phone] Manoj Obregon MD Primary Care Provider [phone] Manoj Obregon MD Primary Care Provider [phone] Manoj Obregon MD Primary Care Provider [phone] Manoj Obregon MD Primary Care Provider [phone] Manoj Obregon MD Primary Care Provider [phone] Manoj Obregon MD Primary Care Provider [phone] Linda Santacruz MD Primary Care Provider [phone] Alberta Bernardo PT Unavailable [phone] Darlene Obregon MD Primary Care Provider Opal Jensen PT Unavailable Unavailable Delilah Yanez MD Unavailable [phone] Encounter Details Date Type Department Care Team (Late st Contact Info) Description 08/19/2014 Orders Only [facility] Provider, MD Gin [address] [place] [address] Social History Tobacco Use Types Packs/Day Years Used Date Smoking Tobacco: Never Assessed Comments Unknown Sex and Gender Information Value Date Recorded Sex Assigned at Not on file 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 us Historical Provider [facility] DINO PHILLIPS Final Result documented in this encounter Visit Diagnoses Not on filedocumented in this encounter Care Teams Acid Adjuster Relationship Specialty Start Date End Date Manoj Obregon MD [address] [place] [address] PCP - General 12/15/16 09/22/18 Manoj Obregon MD [address] [place] [address] PCP - General 10/31/16 12/14/16 Manoj Obregon MD [address] [place] [address] PCP - General 10/29/16 10/30/16 Manoj Obregon MD [address] [place] [address] PCP - General 02/15/16 10/28/16 Manoj Obregon MD [address] [place] [address] PCP - General 12/24/15 02/14/16 Manoj Obregon MD [address] [place] [address] PCP - General 03/02/15 12/23/15 Manoj Obregon MD [address] [place], [place] [id number] PCP - General 01/14/15 03/01/15 Manoj Obregon MD [address] [place] [address] PCP - General 01/24/12 01/13/15 Linda Santacruz MD [address] [place] [address] PCP - General 09/23/18 07/23/19 [place] [address] [place] [address] PCP - General Internal Medicine 04/25/22 [place] [address] [place] [address] Physical Therapist Physical Therapy 01/18/22 Opal Jensen, PT Physical Therapist Physical Therapy 06/16/22 Delilah Yanez MD [address] [place] [address] Consulting Physician Cardiology 06/15/23 documented as of this encounter
--- OUTSIDE RECORDS SUMMARY | 2025-01-30 09:24 | XMS_ITS | Encounter Summary ---
Author Organization [facility] Address [address] [place] [address] Phone Care Team Providers Care Plywood Factory Worker Name Role Phone Manoj Obregon MD Primary Care Provider [phone] Manoj Obregon MD Primary Care Provider [phone] Manoj Obregon MD Primary Care Provider Manoj Obregon MD Primary Care Provider [phone] Manoj Obregon MD Primary Care Provider [phone] Manoj Obregon MD Primary Care Provider [phone] Manoj Obregon MD Primary Care Provider [phone] Linda Santacruz MD Primary Care Provider [phone] Alberta Bernardo PT Unavailable [phone] Darlene Obregon MD Primary Care Provider Opal Jensen PT Unavailable Unavailable Delilah Yanez MD Unavailable [phone] Encounter Details Date Type Department Care Team (Late st Contact Info) Description 01/25/2015 Orders Only [facility] Provider, MD Gin [facility], [facility]–[address] [place] [address] Social History Tobacco Use Types Packs/Day Years Used Date Smoking Tobacco: Never Alcohol Use Standard Drinks/Week Comments No 0 (1 standard drink = 0.6 oz pur e alcohol) Comments Unknown Sex and Gender Information Value Date Recorded Sex Assigned at Not on file 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 [facility] Provider CV CARDIAC SERVICES PROCE DURES Final Result * CARDIOLOGY REPORT (01/25/2015) Anatomical Region Laterality Modality Other Narrative 01/25/2015 Ordered by an unspecified provider. [facility] Provider CV CARDIAC SERVICES PROCE DURES Final Result * CARDIOLOGY REPORT (01/25/2015) Anatomical Region Laterality Modality Other Narrative 01/25/2015 Ordered by an unspecified provider. [facility] Provider CV CARDIAC SERVICES PROCE DURES Final Result documented in this encounter Visit Diagnoses Not on filedocumented in this encounter Care Teams Plywood Factory Worker Relationship Specialty Start Date End Date Manoj Obregon MD [address] [place] [address] PCP - General 12/15/16 09/22/18 Manoj Obregon MD [address] [place] [address] PCP - General 10/31/16 12/14/16 Manoj Obregon MD [address] [place] [address] PCP - General 10/29/16 10/30/16 Manoj Obregon MD [address] [place] [address] PCP - General 02/15/16 10/28/16 Manoj Obregon MD [address] [place] [address] PCP - General 12/24/15 02/14/16 Manoj Obregon MD [address] [place] [address] PCP - General 03/02/15 12/23/15 Manoj Obregon MD [address] [place] [address] PCP - General 01/14/15 03/01/15 Linda Santacruz MD [address] [place] [address] PCP - General 09/23/18 07/23/19 [place] [address] [place] [address] PCP - General Internal Medicine 04/25/22 [place] [address] [place] [address] Physical Therapist Physical Therapy 01/18/22 Opal Jensen, PT Physical Therapist Physical Therapy 06/16/22 Delilah Yanez MD [address] [place] [address] Consulting Physician Cardiology 06/15/23 documented as of this encounter
--- OUTSIDE RECORDS SUMMARY | 2025-01-30 09:24 | XMS_ITS | Encounter Summary ---
Author Organization [facility] Address [address] [place] [address] Phone Care Team Providers Care Cleaner Housekeeping Name Role Phone Manoj Obregon MD Primary Care Provider [phone] Linda Santacruz MD Primary Care Provider Alberta Bernardo PT Unavailable [phone] Darlene Obregon MD Primary Care Provider Opal Jensen PT Unavailable Unavailable Delilah Yanez MD Unavailable Encounter Details Date Type Department Care Team (Late st Contact Info) Description 08/07/2017 Orders Only [facility] Provider, MD Gin [address] [place] [id number] Social History Tobacco Use Types Packs/Day Years Used Date Smoking Tobacco: Never Alcohol Use Standard Drinks/Week Comments No 0 (1 standard drink = 0.6 oz pur e alcohol) Comments Unknown Sex and Gender Information Value Date Recorded Sex Assigned at Not on file 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 [facility] Historical Provider CV CARDIAC SERVICES DINO PHILLIPS Final Result documented in this encounter Visit Diagnoses Not on filedocumented in this encounter Care Teams Cleaner Housekeeping Relationship Specialty Start Date End Date Manoj Obregon MD [address] [place] [address] PCP - General 12/15/16 09/22/18 Linda Santacruz MD [address] [place] [address] PCP - General 09/23/18 07/23/19 [place] [address] [place] [address] PCP - General Internal Medicine 04/25/22 [place] [address] [place] [address] Physical Therapist Physical Therapy 01/18/22 Opal Jensen, PT Physical Therapist Physical Therapy 06/16/22 Delilah Yanez MD [address] [place] [address] Consulting Physician Cardiology 06/15/23 documented as of this encounter
--- OUTSIDE RECORDS SUMMARY | 2025-01-30 09:24 | XMS_ITS | Encounter Summary ---
Author Organization [facility] Address [address] [place] [address] Phone Care Team Providers Care Binding End Stitcher Name Role Phone Manoj Obregon MD Primary Care Provider [phone] Manoj Obregon MD Primary Care Provider [phone] Manoj Obregon MD Primary Care Provider [phone] Manoj Obregon MD Primary Care Provider [phone] Manoj Obregon MD Primary Care Provider [phone] Manoj Obregon MD Primary Care Provider [phone] Manoj Obregon MD Primary Care Provider [phone] Manoj Obregon MD Primary Care Provider [phone] Linda Santacruz MD Primary Care Provider Alberta Bernardo PT Unavailable [phone] Darlene Obregon MD Primary Care Provider Opal Jensen PT Unavailable Unavailable Delilah Yanez MD Unavailable [phone] Encounter Details Date Type Department Care Team (Late st Contact Info) Description 08/10/2014 Orders Only [facility] Provider, MD Gin [address] [place] [address] Social History Tobacco Use Types Packs/Day Years Used Date Smoking Tobacco: Never Assessed Comments Unknown Sex and Gender Information Value Date Recorded Sex Assigned at Not on file 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 [facility] Historical Provider CV CARDIAC SERVICES DINO PHILLIPS Final Result documented in this encounter Visit Diagnoses Not on filedocumented in this encounter Care Teams Binding End Stitcher Relationship Specialty Start Date End Date Manoj Obregon MD [address] [place] [address] PCP - General 12/15/16 09/22/18 Manoj Obregon MD [address] [place] [address] PCP - General 10/31/16 12/14/16 Manoj Obregon MD [address] [place] [address] PCP - General 10/29/16 10/30/16 Manoj Obregon MD [address] [place] [address] PCP - General 02/15/16 10/28/16 Manoj Obregon MD [address] [place] [address] PCP - General 12/24/15 02/14/16 Manoj Obregon MD [address] [place] [address] PCP - General 03/02/15 12/23/15 Manoj Obregon MD [address] [place], [place] [id number] PCP - General 01/14/15 03/01/15 Manoj Obregon MD [address] [place] [address] PCP - General 01/24/12 01/13/15 Linda Santacruz MD [address] [place] [address] PCP - General 09/23/18 07/23/19 [place] [address] [place] [address] PCP - General Internal Medicine 04/25/22 [place] [address] [place] [address] Physical Therapist Physical Therapy 01/18/22 Opal Jensen, PT Physical Therapist Physical Therapy 06/16/22 Delilah Yanez MD [address] [place] [address] Consulting Physician Cardiology 06/15/23 documented as of this encounter
--- OUTSIDE RECORDS SUMMARY | 2025-01-30 09:24 | XMS_ITS | Encounter Summary ---
Author Organization [facility] Address [address] [place] [address] Phone Care Team Providers Care Electronic Industrial Controls Mechanic Name Role Phone Manoj Obregon MD Primary Care Provider [phone] Manoj Obregon MD Primary Care Provider [phone] Manoj Obregon MD Primary Care Provider [phone] Manoj Obregon MD Primary Care Provider [phone] Manoj Obregon MD Primary Care Provider [phone] Manoj Obregon MD Primary Care Provider [phone] Manoj Obregon MD Primary Care Provider [phone] Manoj Obregon MD Primary Care Provider [phone] Linda Santacruz MD Primary Care Provider Alberta Bernardo PT Unavailable [phone] Darlene Obregon MD Primary Care Provider [phone] Opal Jensen PT Unavailable Unavailable Delilah Yanez MD Unavailable [phone] Encounter Details Date Type Department Care Team (Late st Contact Info) Description 11/04/2014 Orders Only [facility] Provider, MD Gin [address] [place] [address] Social History Tobacco Use Types Packs/Day Years Used Date Smoking Tobacco: Never Assessed Comments Unknown Sex and Gender Information Value Date Recorded Sex Assigned at Not on file 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 us Historical Provider CV CARDIAC SERVICES DINO PHILLIPS Final Result documented in this encounter Visit Diagnoses Not on filedocumented in this encounter Care Teams Electronic Industrial Controls Mechanic Relationship Specialty Start Date End Date Manoj Obregon MD [address] [place] [address] PCP - General 12/15/16 09/22/18 Manoj Obregon MD [address] [place] [address] PCP - General 10/31/16 12/14/16 Manoj Obregon MD [address] [place] [address] PCP - General 10/29/16 10/30/16 Manoj Obregon MD [address] [place] [address] PCP - General 02/15/16 10/28/16 Manoj Obregon MD [address] [place] [address] PCP - General 12/24/15 02/14/16 Manoj Obregon MD [address] [place] [address] PCP - General 03/02/15 12/23/15 Manoj Obregon MD [address] [place], [place] [address] PCP - General 01/14/15 03/01/15 Manoj Obregon MD [address] [place] [address] PCP - General 01/24/12 01/13/15 Linda Santacruz MD [address] [place] [address] PCP - General 09/23/18 07/23/19 [place] [address] [place] [address] PCP - General Internal Medicine 04/25/22 [place] [address] [place] [address] Physical Therapist Physical Therapy 01/18/22 Opal Jensen, PT Physical Therapist Physical Therapy 06/16/22 Delilah Yanez MD [address] [place] [address] Consulting Physician Cardiology 06/15/23 documented as of this encounter
[2025-01-30 09:30] LABS: EDUAAPPEAR Clear; EDUABILI Negative (Negative); EDUABLOOD Trace (Negative); EDUACOLOR1 Light/Pale; EDUAGLUCOSE Negative (Negative); EDUAKETONE Negative (Negative); EDUALEUKO Negative (Negative); EDUANITRATE Negative (Negative); EDUAPROTEIN Negative (Negative); EDUAUROBILI 0.2
--- NOTE | 2025-01-30 09:42 | ED.FEMALEGU ---
HPI - Female Genitourinary General Chief complaint: Urogenital-Female Stated complaint: uti symptoms Source: patient and RN notes reviewed Mode of arrival: ambulatory Limitations: no limitations History of Present Illness HPI Narrative: 34-year-old female presents Express Care complaining of urinary symptoms for 3 days. Patient reports having dysuria, increased frequency, hesitancy, and suprapubic pain. Patient denies any fevers, abdominal pain, body aches, chills, blood in her urine, nausea, vomiting, diarrhea. Patient denies any vaginal discharge, irritation, or pelvic pain. Patient has patient is taking cranberry tablets tell with her symptoms without relief. Patient reports of feels like knives in her bladder as she urinates. Patient reports having a cardiac history and a pacemaker for sick sinus syndrome Related Data Home Medications Medication Instructions Recorded Confirmed Last Taken Type bupropion HCl 100 mg tablet 300 mg PO DAILY 06/15/21 05/02/24 Unknown History budesonide-formoterol HFA 160 2 puff inhalation Q12H 07/11/22 05/02/24 Unknown History mcg-4.5 mcg/actuation aerosol inhaler (Symbicort) metoprolol succinate 25 mg 25 mg PO DAILY 07/11/22 05/02/24 Unknown History tablet,extended release 24 hr albuterol sulfate 90 mcg/actuation 2 puff inhalation QID PRN 01/18/23 05/02/24 Unknown History aerosol inhaler Shortness Of Breath Or Wheezing flecainide 100 mg tablet 100 mg PO Q12H 01/18/23 05/02/24 Unknown History magnesium oxide 400 mg PO BID 01/18/23 05/02/24 Unknown History buspirone 10 mg tablet 10 mg PO BID 05/02/24 05/02/24 Unknown History clobetasol 0.05 % scalp solution See Rx Instructions .Route .COMPLEX 05/02/24 05/02/24 Unknown History escitalopram oxalate 10 mg tablet 10 mg PO DAILY 05/02/24 05/02/24 Unknown History topiramate 50 mg tablet 50 mg PO DAILY 05/02/24 05/02/24 Unknown History Allergies Allergy/AdvReac Type Severity Reaction Status Date / Time adhesive tape Allergy Mild Rash Verified 05/02/24 11:21 lorazepam Allergy Mild Itching Verified 05/02/24 11:21 paroxetine Allergy Mild Rash Verified 05/02/24 11:21 carbamazepine Allergy Unknown Unknown Verified 05/02/24 11:21 ceftriaxone (From Rocephin) Allergy Unknown Unknown Verified 05/02/24 11:21 lacosamide Allergy Unknown Rash Verified 05/02/24 11:21 Review of Systems Review of Systems: CONSTITUTIONAL: Denies fever, chills, body aches, or sweats. EYES: Denies visual changes, redness, or discharge. ENT: Denies rhinorrhea, congestion, sore throat, or otalgia. CARDIOVASCULAR: Denies chest pain, palpitations, or edema. RESPIRATORY: Denies cough or dyspnea. GASTROINTESTINAL: Denies abdominal pain, nausea, vomiting, or diarrhea. GENITOURINARY: Positive for dysuria, suprapubic pain, increased frequency and hesitancy. Negative for hematuria, vaginal discharge, vaginal irritation, pelvic pain. SKIN: Denies rash or itching. MUSCULOSKELETAL: Denies back pain, joint pain, or myalgia. NEUROLOGIC: Denies headache, numbness, or weakness. PSYCHIATRIC: Denies anxiety or depression. All other systems reviewed are negative, except as documented in HPI. [facility] Past Medical History Medical History LILI (obstructive sleep apnea) Postural orthostatic tachycardia syndrome Hemorrhoid UTI (urinary tract infection) H/O cardiac pacemaker Depression Sick sinus syndrome Seizure Anxiety Surgical History Surgical History H/O tubal ligation S/P cardiac pacemaker procedure Family History Family History Mother Family history non-contributory Social History Social History Smoking status: Never smoker Substance use: never Living arrangements: with family Gender identity (if verbalized by the patient): Female Sexual Orientation (if Verbalized by the Patient): Straight or Heterosexual Spiritual care concerns: No Comments At the time of my signature, I reviewed and agree with the nursing past medical, surgical, social, and family history. There is no relevant family history pertinent to the patient complaint. Exam Narrative: GENERAL: This is a well-nourished, well-developed adult, in no apparent distress. They are non ill-appearing, nontoxic appearing. Patient is obese. Exam limited by large body habitus. HEAD: normocephalic, atraumatic. EYES: Sclera clear/white. Vision is grossly intact. Conjunctiva normal bilaterally. Extraocular movements intact. EARS: External ears normal,Hearing grossly intact. NOSE: External nose normal THROAT: Mucous membranes moist NECK: Normal range of motion CARDIOVASCULAR: Regular rate and rhythm without murmurs, gallops, or rubs. RESPIRATORY: Clear to auscultation. Breath sounds equal bilaterally. No wheezes, rales, or rhonchi. GASTROINTESTINAL: Abdomen large, soft, non-tender, nondistended. Suprapubic tenderness to palpation. Bowel sounds are active. No palpable masses. No guarding. No rebound tenderness. SKIN: warm, Dry, intact with no suspicious lesions or rash, good texture and turgor. NEURO: awake, alert, and oriented to person, place and time. There were no obvious focal neurologic abnormalities. EXTREMITIES: No joint tenderness, effusion, or edema noted. BACK: Nontender without deformity. No CVA tenderness. Course Course Emergency Course: Portions of this record may have been created with voice recognition software Level of Care: Express Care Visit Vital Signs Vital signs: Vital Signs Temperature 97 F L 01/30/25 09:20 Pulse Rate 70 01/30/25 09:20 Respiratory Rate 16 01/30/25 09:20 Blood Pressure 135/63 01/30/25 09:20 Pulse Oximetry 97 01/30/25 09:20 Oxygen Delivery Room Air 01/30/25 09:20 Temperature 97 F L 01/30/25 09:20 Pulse Rate 70 01/30/25 09:20 Respiratory Rate 16 01/30/25 09:20 Blood Pressure 135/63 01/30/25 09:20 Pulse Oximetry 97 01/30/25 09:20 Oxygen Delivery Room Air 01/30/25 09:20 MDM - Female Genitourinary MDM Narrative Medical decision making narrative: Urine dipstick revealed blood in her urine. Patient denied being on her period. Urine culture pending. Patient's symptoms clinically consistent with a cystitis. Will go ahead and treat her empirically with Macrobid. Discussed physical exam findings. Advised supportive measures and signs/symptoms to go to the ER. Pt is appropriate for outpt treatment and f/u. Differential Diagnosis Differential diagnosis: Likely urinary tract infection, cystitis and other (Pyelonephritis) Lab Data Attestation: I reviewed the patient's lab results. Labs: Lab Results 01/30/25 Range/Units 09:28 POC Urine Color Light/pale POC Urine Clarity Clear POC Urine pH 7.0 POC Ur Specif [place] 1.020 POC Urine Protein Negative (Negative) POC Ur Glucose (UA) Negative (Negative) POC Urine Ketones Negative (Negative) POC Urine Blood Trace (Negative) POC Urine Nitrite Negative (Negative) POC Urine Bilirubin Negative (Negative) POC Urine Urobilinogen 0.2 POC U Leukocyte Esteras Negative (Negative) Discharge Plan Discharge Clinical Impression: Cystitis Patient Disposition: Home Condition: Stable Instructions: Antibiotic Form, Urinary Tract Infection in Women (ED) Additional Instructions: Take the antibiotic as prescribed The urine will be sent of for a culture to identify what type of bacteria is causing your infection. If the culture shows that the antibiotic will not get rid of your infection, you will be notified and a new antibiotic will be called in for you. Increase water intake you will need to follow up with your PCP 3-5 days. Go to the ER for any worsening symptoms, abdominal pain, fevers, nausea, vomiting, or any other concerns Patient Language: Bahraini Prescriptions: New nitrofurantoin monohyd/m-cryst [Macrobid] 100 mg capsule 100 mg PO Q12H 5 Days Qty: 10 0RF Rx Instructions: must administer with a meal/food No Action metoprolol succinate 25 mg Tablet Extended Release 24 Hr 25 mg PO DAILY budesonide-formoterol [Symbicort] 160-4.5 mcg/actuation Hfa Aerosol Inhaler 2 puff INHALATION Q12H flecainide 100 mg Tablet 100 mg PO Q12H magnesium oxide 400 mg magnesium Tablet 400 mg PO BID albuterol sulfate 90 mcg/actuation Hfa Aerosol Inhaler 2 puff INHALATION QID PRN (Reason: Shortness Of Breath Or Wheezing) buspirone 10 mg tablet 10 mg PO BID clobetasol 0.05 % solution See Rx Instructions .ROUTE .COMPLEX Rx Instructions: see rx instructions escitalopram oxalate 10 mg tablet 10 mg PO DAILY topiramate 50 mg tablet 50 mg PO DAILY Proctofoam HC 1-1 % foam 1 applic RECTAL QID PRN (Reason: hemorrhoids) Qty: 10 0RF bupropion HCl 100 mg tablet 300 mg PO DAILY Follow-up/Referrals: UNKNOWN,DOCTOR [Primary Care Provider] - Time of Disposition: 09:38
== END 2025-01-30 09:45 | disposition home or self-care (01) ==
DX: N30.90 Cystitis, unspecified without hematuria (principal); I49.5 Sick sinus syndrome; F41.9 Anxiety disorder, unspecified; F32.A Depression, unspecified; Z95.0 Presence of cardiac pacemaker
CPT/HCPCS: 81003; 87086; 87186; 99213; G0463

== ENCOUNTER 2025-02-19 20:14 | Emergency (ER) | payer OTHER, SELFPAY ==
--- NOTE | ~2025-02-19 | XR_ITS ---
XR chest 1V portable Ordering provider: Bairon Newton MD History: 34 years Female with . 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 Comparison: April 15, 2024 FINDINGS: MEDIASTINUM: The cardiac silhouette is not enlarged. Right bipolar pacemaker. LUNGS: No infiltrates, effusions or pneumothorax. OTHER: No free air under the diaphragm. IMPRESSION: No acute cardiopulmonary pathology. Reviewed, dictated and finalized at location A.
[2025-02-19 20:11] VITALS: BP 127/70; PULSE 84; RESP 18; TEMP 36.4; O2SAT 98
[2025-02-19 20:24] VITALS: PULSE 94
--- NOTE | 2025-02-19 20:25 | ECG_ITS ---
Test Date: 2025-02-19 20:31:13 Measurements Intervals Railroad Rate: 70 P: 40 IN: 130 QRS: -9 QRSD: 142 T: 9 QT: 397 QTc: 430 Interpretive Statements SINUS RHYTHM WITH SINUS ARRHYTHMIA RIGHT BUNDLE BRANCH BLOCK BASELINE ARTIFACT- I, II, III, AVR, AVL, AVF ABNORMAL ECG Compared to ECG 04/15/2024 12:22:02 No significant changes Electronically Signed On 02-20-2025 06:16:39 CDT by Paul Casey D.O.
--- OUTSIDE RECORDS SUMMARY | 2025-02-19 20:34 | XMS_ITS | Data Portability ---
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 TIFFANY LARA Low Pressure Firer LEA YOUNGER Luggage Attendant JAYJAY GIANG Sleep Medicine ADIN ALANIS Bariatric Surgeon [phone] ALFREDO THEODORE Geography Faculty Member/Prevention Coordinator [facility] Spinal Orthopedic Surgeon ASHLEY MORGAN [employer] Field Supervisor DIPIKA QUINTERO Neurologist PAU HARRIS Primary Care Provider Assessment Encounter Date Assessment Date Assessment LastModified by Organization Details LastModified Time 05/08/2024 05/08/2024 Follow-up as needed [email or web address] Not available 05/14/2024 09:36:32 Plan of Treatment Reminders Order Date Submit Date Provider Last Modified By Organization Details Last Modified Time Details Appointments ANY 15 2024 02:00P Taty Dennison MD Not available Not available Not available Lab CMP, serum or plasma 2024 025 DARA [facility], [address] [place] [address], [id number], 01/03/2025 09:28:06 urinaly sis, dipstic k 2024 025 [email or web address] In-Office Order, Internal Use Only DO Not Attach Compendium DO Not Attach Compendium, Do Not Delete/merge, [id number] 01/02/2025 16:48:43 TSH, ultra-s ensitiv e, serum 2024 025 [email or web address] [facility], [address], [address], [place], [address], 02/13/2025 14:58:23 HbA1c (hemogl obin A1c), blood 2024 025 [email or web address] [facility], [address], [address], [place], [address], 02/13/2025 14:58:23 lipid panel, serum 2023 024 DARA [facility], [address] [facility], [address], [place], [address], 02/06/2024 11:14:14 CBC 2023 024 DARA [facility], [address] [facility], [address], [place], [address], 02/06/2024 11:14:17 TSH, ultra-s ensitiv e, serum 2023 024 DARA [facility], [address] [facility], [facility] [address], [place], [address], 02/06/2024 11:14:16 HbA1c (hemogl obin A1c), blood 2023 024 [email or web address] In-Office Order, Internal Use Only DO Not Attach Compendium DO Not Attach Compendium, Do Not Delete/merge, [id number] 02/05/2024 15:12:42 Referral general surgeon referra l - Chronic externa l hemorrh oids x5 years. Not acutely inflamm ed or bleedin g. 2023 024 DARA Pruitt MD, [address] [facility], [address], [place], [address], 05/26/2024 12:29:48 Procedures None recorde d. Surgeries None recorde d. Imaging None recorde d. Medication Orders ivabrad ine 5 mg tablet 2024 025 [facility] [id number], [address], 02/06/2025 15:29:24 ondanse benito 4 mg disinte grating tablet 2024 025 [facility] [address], [address], 01/20/2025 11:06:42 sodium chlorid e 1,000 mg soluble tablet 2024 025 [facility] [id number], [address], 01/20/2025 11:06:37 metopro lol succina te ER 25 mg tablet, extende d release 24 hr 2024 025 [facility] [address], [address], 01/02/2025 11:06:11 midodri ne 2.5 mg tablet 2024 025 [email or web address] [facility] [address], [address], 01/20/2025 10:36:08 omepraz ole 20 mg capsule ,delaye d release 2023 024 [email or web address] [address], [address], 01/20/2025 11:06:20 Symbico rt 80 mcg-4.5 mcg/act uation HFA aerosol inhaler 2023 024 DARA [facility] [id number] In [facility] [place], [address], 02/05/2024 15:20:41 Patient TargetsNo targets recorded. Patient Instructions Encounter Date Encounter Id Patient Instructions Last Modified By Organization Details Last Modified Time 02/05/2024 [id number] A healthy lifestyle: care instructions [email or web address] Not available 02/05/2024 14:58:33 On the date of this encounter, I was immediately available to assist the resident/fellow in the care of the patient, and have reviewed and agree with the resident s findings and plan of care. ~MD Dipika [email or web address] Not available 02/12/2024 22:56:04 05/08/2024 [id number] I personally saw and examined the patient with the resident. I agree with the note and plan as documented. Chin Deleon MD. [facility] [email or web address] Not available 05/08/2024 18:13:00 01/02/2025 [id number] A healthy lifestyle: care instructions [email or web address] Not available 01/18/2025 22:49:13 I was present in the clinic to discuss this patient at the time of the visit. I agree with the documented assessment and plan Ally Ng MD [email or web address] Not available 01/02/2025 11:23:39 02/06/2025 [id number] A healthy lifestyle: care instructions [email or web address] Not available 02/06/2025 15:29:23 Reason for Referral General Surgeon Referral for External hemorrhoids Chronic external hemorrhoids x5 years. Not acutely inflammed or bleeding. Chronic external hemorrhoids x5 years. Not acutely inflammed or bleeding. Referring Physician: Dipika Aviles, Prenatal Genetic Counselor, Encounter Date: 05/08/2024 Physical Therapist Referral for Pain in right lower limb Referring Physician: Waylon Aragon, Family Medicine, Encounter Date: 01/20/2025 Results Created Date Observation Date Name Description Value Unit Range Abnormal Flag Note LastModifiedBy Organization Detail LastModifiedTime 01/11/20 24 01/16/2024 IGP, RFX APTIM A HPV ASCU diagnosis: Commen t NEGAT JEFFY FOR INTRA EPITH ELIAL LESIO N OR LEANDRA ZARAGOZA . Not Available [facility] ([facility]) [address] [place], [address], 01/16/2024 11:14:55 01/11/20 24 01/16/2024 IGP, RFX APTIM A HPV ASCU specimen adequacy: Commen t Satis facto ry for evalu ation . Endoc ervic al and/o r squam ous metap lasti c cells (endo cervi belem compo nent) are prese nt. Not Available [facility] ([facility]) [address] [place], [address], 01/16/2024 11:14:55 01/11/20 24 01/16/2024 IGP, RFX APTIM A HPV ASCU clinician provided ICD10: Edi smith Z01.4 19 Not Available [facility] ([facility]) [address] [place], [address], 01/16/2024 11:14:55 01/11/20 24 01/16/2024 IGP, RFX APTIM A HPV ASCU performed by: Edi t Nanci munson, Ousmane smith (ASCP ) Not Available [facility] ([facility]) [address] [place], [address], 01/16/2024 11:14:55 01/11/20 24 01/16/2024 IGP, RFX APTIM A HPV ASCU . . Not Available [facility] ([facility]) [address] [place], [address], 01/16/2024 11:14:55 01/11/20 24 01/16/2024 IGP, RFX APTIM A HPV ASCU note: Commen t The Pap smear is a scree fiorella test despatricia eduin to aid in the detec tion of adonis ligna nt and malig nant condi tions of the uteri ne cervi x. It is not a diagn ostic proce dure and shoul d not be used as the sole means of detec ting cervi belem cance r. Both false -posi tive and false -nega tive repor ts do occur . Not Available [facility] ([facility]) [address] [place], [address], 01/16/2024 11:14:55 01/11/20 24 01/16/2024 IGP, RFX APTIM A HPV ASCU test methodology: Commen t This liqui d based ThinP rep(R ) pap test was scree eduin with the use of an image guide thalia randle. Not Available [facility] ([facility]) [address] [place], [address], 01/16/2024 11:14:55 01/11/20 24 01/16/2024 IGP, RFX APTIM A HPV ASCU . Commen t The HPV DNA refle x crite adriel were not met with this speci men resul t there fore, no HPV testi ng was perfo rmed. Not Available [facility] ([facility]) [address] [place], [address], 01/16/2024 11:14:55 02/05/20 24 02/06/2024 LIPID PANEL cholesterol, total 173 mg/dL 100-19 9 Not Available [facility] ([facility]) [address] [place], [address], 02/06/2024 11:14:14 02/05/20 24 02/06/2024 LIPID PANEL triglyceride s 127 mg/dL 0-149 Not Available [facility]) [address] [place], [address], 02/06/2024 11:14:14 02/05/20 24 02/06/2024 LIPID PANEL HDL cholesterol 43 mg/dL >39 Not Available [facility] [address] [place], [address], 02/06/2024 11:14:14 02/05/20 24 02/06/2024 LIPID PANEL VLDL cholesterol belem 23 mg/dL 5-40 Not Available [facility] ([facility]) [address] [place], [address], 02/06/2024 11:14:14 02/05/20 24 02/06/2024 LIPID PANEL LDL chol calc ([facility]) 107 mg/dL 0-99 above high normal Not Available [facility] ([facility]) [address] [place], [address], 02/06/2024 11:14:14 02/05/20 24 02/06/2024 TSH RFX ON ABNOR MAL TO FREE T4 TSH 3.180 uIU/m L 0.450- 4.500 Not Available [facility] ([facility]) [address] [place], [address], 02/06/2024 11:14:16 02/05/20 24 02/06/2024 CBC, NO DIFFE RENTI AL/PL ATELE T WBC 7.5 x10e3 /uL 3.4-10 .8 Not Available [facility] ([facility]) [address] [place], [address], 02/06/2024 11:14:17 02/05/20 24 02/06/2024 CBC, NO DIFFE RENTI AL/PL ATELE T RBC 4.32 x10e6 /uL 3.77-5 .28 Not Available [facility] ([facility]) [address] [place], [address], 02/06/2024 11:14:17 02/05/20 24 02/06/2024 CBC, NO DIFFE RENTI AL/PL ATELE T hemoglobin 11.9 g/dL 11.1-1 5.9 Not Available [facility] ([facility]) [address] [place], [address], 02/06/2024 11:14:17 02/05/20 24 02/06/2024 CBC, NO DIFFE RENTI AL/PL ATELE T hematocrit 37.7 % 34.0-4 6.6 Not Available [facility] ([facility]) [address] [facility], [place], [place], [address], 02/06/2024 11:14:17 02/05/20 24 02/06/2024 CBC, NO DIFFE RENTI AL/PL ATELE T MCV 87 fL 79-97 Not Available [facility] ([facility]) [address] [facility], [place], [place], [address], 02/06/2024 11:14:17 02/05/20 24 02/06/2024 CBC, NO DIFFE RENTI AL/PL ATELE T MCH 27.5 pg 26.6-3 3.0 Not Available [facility] ([facility]) [address] [facility], [place], [place], [address], 02/06/2024 11:14:17 02/05/20 24 02/06/2024 CBC, NO DIFFE RENTI AL/PL ATELE T MCHC 31.6 g/dL 31.5-3 5.7 Not Available [facility] ([facility]) [address] [facility] [place], [place], [address], 02/06/2024 11:14:17 02/05/20 24 02/06/2024 CBC, NO DIFFE RENTI AL/PL ATELE T RDW 13.5 % 11.7-1 5.4 Not Available [facility] ([facility]) [address] [place], [address], 02/06/2024 11:14:17 02/05/20 24 02/05/2024 HbA1c (hemo globi n A1c), blood HbA1c 5.9 Not Available In-Office Order Internal Use Only DO Not Attach Compendium DO Not Attach Compendium, Do Not Delete/merge, [id number] 02/05/2024 14:58:27 04/23/20 04/23/2024 Chori ogona dotro pin.b eta subun it [Unit s/vol ume] in Serum or Plasm a choriogonado tropin.intac t+beta subunit [units/volum e] in serum or plasma text: mIU/mL Beta- hCG Total Quant itati ve <3 mIU/m L 04/23 12:15 PM CDT [facility] SMITA Not Available Not Available 12/16/2024 16:47:08 04/23/20 24 04/23/2024 Magne sium [Mass /volu me] in Serum or Plasm a magnesium [mass/volume ] in serum or plasma 2.2 mg/dL low: 1.6mg/ dLhigh : 2.6mg/ dL Magne sium 2.2 1.6 - 2.6 mg/dL 04/23 12:11 PM CDT [facility] Not Available Not Available 12/16/2024 16:47:07 04/23/20 [...] - 26 mg/dL 04/23 12:11 PM CDT [facility] Not Available Not Available 12/16/2024 16:47:07 04/23/20 24 04/23/2024 Compr ehens jeffy metab olic 2000 panel - Serum or Plasm a creatinine [mass/volume ] in serum or plasma 1.1 mg/dL low: 0.56mg /dLhig h: 0.96mg /dL high Creat inine 1.10 (H) 0.56 - 0.96 mg/dL 04/23 12:11 PM CDT [facility] Not Available Not Available 12/16/2024 16:47:07 04/23/20 24 04/23/2024 Compr ehens jeffy metab olic 1999 panel - Serum or Plasm a sodium [moles/volum e] in serum or plasma 141 mmol/ L low: 136mmo l/Lhig h: 145mmo l/L Max m 141 136 - 145 mmol/ L 04/23 12:11 PM CDT [facility] Not Available Not Available 12/16/2024 16:47:07 04/23/20 24 04/23/2024 Compr ehens jeffy metab olic 1999 panel - Serum or Plasm a potassium [moles/volum e] in serum or plasma 4.2 mmol/ L low: 3.5mmo l/Lhig h: 4.5mmo l/L Potas sium 4.2 3.5 - 4.5 mmol/ L 04/23 12:11 PM CDT [facility] Not Available Not Available 12/16/2024 16:47:07 04/23/20 24 04/23/2024 Compr ehens jeffy metab olic 1999 panel - Serum or Plasm a chloride [moles/volum e] in serum or plasma 109 mmol/ L low: 98mmol /Lhigh : 107mmo l/L high Chlor lobo 109 (H) 98 - 107 mmol/ L 04/23 12:11 PM CDT [facility] Not Available Not Available 12/16/2024 16:47:07 04/23/20 24 04/23/2024 Compr ehens jeffy metab olic 1999 panel - Serum or Plasm a carbon dioxide, total [moles/volum e] in serum or plasma 25 mmol/ L low: 22mmol /Lhigh : 29mmol /L CO2 25 22 - 29 mmol/ L 04/23 12:11 PM CDT [facility] Not Available Not Available 12/16/2024 16:47:07 04/23/20 24 04/23/2024 Compr ehens jeffy metab olic 2000 panel - Serum or Plasm a glucose [mass/volume ] in serum or plasma 102 mg/dL low: 70mg/d Lhigh: 115mg/ dL Gluco se 102 70 - 115 mg/dL 04/23 12:11 PM CDT [facility] Not Available Not Available 12/16/2024 16:47:07 04/23/20 24 04/23/2024 Compr ehens jeffy metab olic 2000 panel - Serum or Plasm a calcium [moles/volum e] in serum or plasma 9.5 mg/dL low: 8.4mg/ dLhigh : 10.2mg /dL Calci um 9.5 8.4 - 10.2 mg/dL 04/23 12:[address] [facility] Not Available Not Available 12/16/2024 16:47:07 04/23/20 24 04/23/2024 Compr ehens jeffy metab olic 2000 panel - Serum or Plasm a protein [mass/volume ] in serum or plasma 7 g/dL low: 6g/dLh igh: 8.3g/d L Prote in Total 7.0 6.0 - 8.3 g/dL 04/23 12:11 PM CDT [facility] Not Available Not Available 12/16/2024 16:47:07 04/23/20 24 04/23/2024 Compr ehens jeffy metab olic 2000 panel - Serum or Plasm a albumin [mass/volume ] in serum or plasma by bromocresol green (bcg) dye binding method 3.3 g/dL low: 3.4g/d Lhigh: 5g/dL low Album in 3.3 (L) 3.4 - 5.0 g/dL 04/23 12:11 PM CDT [facility] Not Available Not Available 12/16/2024 16:47:07 04/23/20 24 04/23/2024 Compr ehens jeffy metab olic 2000 panel - Serum or Plasm a bilirubin.to smita [mass/volume ] in serum or plasma 0.3 mg/dL low: 0.2mg/ dLhigh : 1.2mg/ dL Bilir ubin Total 0.3 0.2 - 1.2 mg/dL 04/23 12:[address] [facility] Not Available Not Available 12/16/2024 16:47:07 04/23/20 24 04/23/2024 Compr ehens jeffy metab olic 2000 panel - Serum or Plasm a alkaline phosphatase [enzymatic activity/vol ume] in serum or plasma 86 U/L low: 40U/Lh igh: 150U/L Alkal ine Phosp hatas e 86 40 - 150 U/L 04/23 12:11 PM CDT [facility] Not Available Not Available 12/16/2024 16:47:07 04/23/20 24 04/23/2024 Compr ehens jeffy metab olic 1999 panel - Serum or Plasm a alanine aminotransfe rase [enzymatic activity/vol ume] in serum or plasma by no addition of P-5'-P 15 U/L low: 5U/Lhi gh: 55U/L ALT 15 5 - 55 U/L 04/23 12:11 PM CDT [facility] Not Available Not Available 12/16/2024 16:47:07 04/23/20 24 04/23/2024 Compr ehens jeffy metab olic 1999 panel - Serum or Plasm a aspartate aminotransfe rase [enzymatic activity/vol ume] in serum or plasma 15 U/L low: 5U/Lhi gh: 34U/L AST 15 5 - 34 U/L 04/23 12:11 PM CDT [facility] Not Available Not Available 12/16/2024 16:47:07 04/23/20 24 04/23/2024 Compr ehens jeffy metab olic 1999 panel - Serum or Plasm a anion gap 7 low: 6high: 16 Anion Gap 7 6 - 16 04/23 12:11 PM CDT [facility] Not Available Not Available 12/16/2024 16:47:07 04/23/20 24 04/23/2024 Compr ehens jeffy metab olic 1999 panel - Serum or Plasm a urea nitrogen/cre atinine [mass ratio] in serum or plasma 11 low: 7high: 23 BUN/C reati nine Ratio 11 7 - 23 04/23 12:11 PM CDT [facility] Not Available Not Available 12/16/2024 16:47:07 04/23/20 24 04/23/2024 Compr ehens jeffy metab olic 2000 panel - Serum or Plasm a osmolality calculated 292 text: 275 - 295 mOsm/k g Osmol sowmya Vargas lated 292 275 - 295 mOsm/ kg 04/23 12:11 PM CDT [facility] [email or web address] [facility] SM[facility] Not Available Not Available 12/16/2024 16:47:07 04/23/20 24 04/23/2024 Compr ehens jeffy metab olic 2000 panel - Serum or Plasm a albumin/glob ulin ratio 0.9 low: 1.1hig h: 2.3 low Album in/Gl obuli n Ratio 0.9 (L) 1.1 - 2.3 04/23 12:11 PM CDT [facility] [email or web address] [facility] Not Available Not Available 12/16/2024 16:47:07 04/23/20 24 04/23/2024 Compr ehens jeffy metab olic 2000 panel - Serum or Plasm a glomerular filtration rate [volume rate/area] in serum, plasma or blood by creatinine-b ased formula (CKD-epi)/1. 73 sq M 68 text: >=90 mL/min /1.73 m2 low eGFR by CKD-E PI 68 (L) >=90 mL/mi n/1.7 3 m2 04/23 12:11 PM T [facility] [email or web address] [facility] Not Available Not Available 12/16/2024 16:47:07 04/23/20 [...] 10.7 x10E9 /L 04/23 11:45 AM CDT [facility] [email or web address] [facility] Not Available Not Available 12/16/2024 16:47:07 04/23/20 24 04/23/2024 CBC W Auto Diffe renti al panel - Blood erythrocytes [#/volume] in blood by automated count 4.24 text: 3.90 - 5.20 x10e12 /L RBC Count 4.24 3.90 - 5.20 x10E1 2/L 04/23 11:45 AM [facility] Not Available Not Available 12/16/2024 16:47:07 04/23/20 24 04/23/2024 CBC W Auto Diffe renti al panel - Blood hemoglobin [mass/volume ] in blood 11.5 g/dL low: 11.9g/ dLhigh : 15.8g/ dL low Hemog lobin 11.5 (L) 11.9 - 15.8 g/dL 04/23 11:45 AM [facility] Not Available Not Available 12/16/2024 16:47:07 04/23/20 24 04/23/2024 CBC W Auto Diffe renti al panel - Blood hematocrit [volume fraction] of blood by automated count 36.7 % low: 34.8%h igh: 46.1% Hemat ocrit 36.7 34.8 - 46.1 % 04/23 11:45 AM [facility] Not Available Not Available 12/16/2024 16:47:07 04/23/20 24 04/23/2024 CBC W Auto Diffe margaretti al panel - Blood MCV [entitic mean volume] in red blood cells by automated count 86.6 fL low: 80fLhi gh: 98fL MCV 86.6 80.0 - 98.0 fL 04/23 11:45 AM [facility] Not Available Not Available 12/16/2024 16:47:07 04/23/20 24 04/23/2024 CBC W Auto Diffe margaretti al panel - Blood MCH [entitic mass] by automated count 27.1 pg low: 26.7pg high: 33.6pg MCH 27.1 26.7 - 33.6 pg 04/23 11:45 AM [facility] Not Available Not Available 12/16/2024 16:47:07 04/23/20 24 04/23/2024 CBC W Auto Diffe isaura al panel - Blood MCHC [entitic mass/volume] in red blood cells by automated count 31.3 g/dL low: 31.7g/ dLhigh : 36.3g/ dL low MCHC 31.3 (L) 31.7 - 36.3 g/dL 04/23 11:45 AM CDT [facility] Not Available Not Available 12/16/2024 16:47:07 04/23/20 24 04/23/2024 CBC W Auto Diffe renti al panel - Blood erythrocyte [distwidth] in red blood cells by automated count 14 % low: 11.3%h igh: 14.8% RDW-C V 14.0 11.3 - 14.8 % 04/23 11:45 AM CDT [facility] SM[facility] Not Available Not Available 12/16/2024 16:47:07 04/23/20 24 04/23/2024 CBC W Auto Diffe renti al panel - Blood platelets [#/volume] in blood by automated count 253 text: 150 - 420 x10e9/ L Plate let Count 253 150 - 420 x10E9 /L 04/23 11:45 AM T [facility] Not Available Not Available 12/16/2024 16:47:07 04/23/20 24 04/23/2024 CBC W Auto Diffe renti al panel - Blood platelet [entitic mean volume] in blood by automated count 9.9 fL low: 7.8fLh igh: 11.4fL MPV 9.9 7.8 - 11.4 fL 04/23 11:45 AM T [facility] Not Available Not Available 12/16/2024 16:47:07 04/23/20 24 04/23/2024 CBC W Auto Diffe renti al panel - Blood neutrophils/ leukocytes in blood by automated count 60.1 % low: 41%hig h: 74% Neutr ophil % 60.1 41.0 - 74.0 % 04/23 11:45 AM T [facility] Not Available Not Available 12/16/2024 16:47:07 04/23/20 24 04/23/2024 CBC W Auto Diffe renti al panel - Blood lymphocytes/ leukocytes in blood by automated count 29.2 % low: 17%hig h: 47% Lymph ocyte % 29.2 17.0 - 47.0 % 04/23 11:45 AM CDT [facility] [email or web address] [email or web address] Not Available Not Available 12/16/2024 16:47:07 04/23/20 24 04/23/2024 CBC W Auto Diffe renti al panel - Blood monocytes/le ukocytes in blood by automated count 5.4 % low: 3%high : 11% Monoc yte % 5.4 3.0 - 11.0 % 04/23 11:45 AM [facility] Not Available Not Available 12/16/2024 16:47:07 04/23/20 24 04/23/2024 CBC W Auto Diffe renti al panel - Blood eosinophils/ leukocytes in blood by automated count 4.8 % low: 0%high : 7% Eosin ophil % 4.8 0.0 - 7.0 % 04/23 11:45 AM [facility] [email or web address] [email or web address] Not Available Not Available 12/16/2024 16:47:07 04/23/20 24 04/23/2024 CBC W Auto Diffe renti al panel - Blood basophils/le ukocytes in blood by automated count 0.4 % low: 0%high : 1.6% Basop hil % 0.4 0.0 - 1.6 % 04/23 11:45 AM [facility] [email or web address] [email or web address] Not Available Not Available 12/16/2024 16:47:07 04/23/20 24 04/23/2024 CBC W Auto Diffe renti al panel - Blood immature granulocytes /leukocytes in blood by automated count 0.1 % low: 0%high : 1% Immat ure Granu locyt es % 0.1 0.0 - 1.0 % 04/23 11:45 AM [facility] [email or web address] [facility] Not Available Not Available 12/16/2024 16:47:07 04/23/20 24 04/23/2024 CBC W Auto Diffe renti al panel - Blood neutrophils [#/volume] in blood by automated count 4.41 text: 1.60 - 7.50 x10e9/ L Neutr ophil Absol red devil 4.41 1.60 - 7.50 x10E9 /L 04/23 11:45 AM CDT [facility] Not Available Not Available 12/16/2024 16:47:07 04/23/20 24 04/23/2024 CBC W Auto Diffe renti al panel - Blood lymphocytes [#/volume] in blood by automated count 2.14 text: 1.00 - 4.40 x10e9/ L Lymph ocyte Absol red devil 2.14 1.00 - 4.40 x10E9 /L 04/23 11:45 AM CDT [facility] Not Available Not Available 12/16/2024 16:47:07 04/23/20 24 04/23/2024 CBC W Auto Diffe renti al panel - Blood monocytes [#/volume] in blood by automated count 0.4 text: 0.15 - 1.00 x10e9/ L Monoc yte Absol red devil 0.40 0.15 - 1.00 x10E9 /L 04/23 11:45 AM CDT [facility] Not Available Not Available 12/16/2024 16:47:07 04/23/20 24 04/23/2024 CBC W Auto Diffe renti al panel - Blood eosinophils [#/volume] in blood 0.35 text: 0.00 - 0.60 x10e9/ L Eosin ophil Absol red devil 0.35 0.00 - 0.60 x10E9 /L 04/23 11:45 AM CDT [facility] Not Available Not Available 12/16/2024 16:47:07 04/23/20 24 04/23/2024 CBC W Auto Diffe renti al panel - Blood basophils [#/volume] in blood by automated count 0.03 text: 0.00 - 0.13 x10e9/ L Basop hil Absol red devil 0.03 0.00 - 0.13 x10E9 /L 04/23 11:45 AM CDT [facility] Not Available Not Available 12/16/2024 16:47:07 04/23/20 [...] 4.940 uIU/m L 04/24 2:59 AM CDT [email or web address] [email or web address] Not Available Not Available 12/16/2024 16:47:08 04/24/20 [...] 10.7 x10E9 /L 04/24 2:18 AM CDT [email or web address] [email or web address] [facility] Not Available Not Available 12/16/2024 16:47:08 04/24/20 24 04/24/2024 CBC panel - Blood by Autom ated count erythrocytes [#/volume] in blood by automated count 4.06 text: 3.90 - 5.20 x10e12 /L RBC Count 4.06 3.90 - 5.20 x10E1 2/L 04/24 2:18 AM CDT [email or web address] [email or web address] [facility] Not Available Not Available 12/16/2024 16:47:08 04/24/20 24 04/24/2024 CBC panel - Blood by Autom ated count hemoglobin [mass/volume ] in blood 11.2 g/dL low: 11.9g/ dLhigh : 15.8g/ dL low Hemog lobin 11.2 (L) 11.9 - 15.8 g/dL 04/24 2:18 AM [facility] SMITA Not Available Not Available 12/16/2024 16:47:08 04/24/20 24 04/24/2024 CBC panel - Blood by Autom ated count hematocrit [volume fraction] of blood by automated count 34.9 % low: 34.8%h igh: 46.1% Hemat ocrit 34.9 34.8 - 46.1 % 04/24 2:18 AM [facility] SM[facility] Not Available Not Available 12/16/2024 16:47:08 04/24/20 24 04/24/2024 CBC panel - Blood by Autom ated count MCV [entitic mean volume] in red blood cells by automated count 86 fL low: 80fLhi gh: 98fL MCV 86.0 80.0 - 98.0 fL 04/24 2:18 AM [facility] SM[facility] Not Available Not Available 12/16/2024 16:47:08 04/24/20 24 04/24/2024 CBC panel - Blood by Autom ated count MCH [entitic mass] by automated count 27.6 pg low: 26.7pg high: 33.6pg MCH 27.6 26.7 - 33.6 pg 04/24 2:18 AM [facility] SM[facility] Not Available Not Available 12/16/2024 16:47:08 04/24/20 24 04/24/2024 CBC panel - Blood by Autom ated count MCHC [entitic mass/volume] in red blood cells by automated count 32.1 g/dL low: 31.7g/ dLhigh : 36.3g/ dL MCHC 32.1 31.7 - 36.3 g/dL 04/24 2:18 AM [facility] SM[facility] Not Available Not Available 12/16/2024 16:47:08 04/24/20 24 04/24/2024 CBC panel - Blood by Autom ated count erythrocyte [distwidth] in red blood cells by automated count 14.2 % low: 11.3%h igh: 14.8% RDW-C V 14.2 11.3 - 14.8 % 04/24 2:18 AM CDT [facility] SMITA Not Available Not Available 12/16/2024 16:47:08 04/24/20 24 04/24/2024 CBC panel - Blood by Autom ated count platelets [#/volume] in blood by automated count 254 text: 150 - 420 x10e9/ L Plate let Count 254 150 - 420 x10E9 /L 04/24 2:18 AM [facility] SMITA Not Available Not Available 12/16/2024 16:47:08 04/24/20 24 04/24/2024 CBC panel - Blood by Autom ated count platelet [entitic mean volume] in blood by automated count 10.1 fL low: 7.8fLh igh: 11.4fL MPV 10.1 7.8 - 11.4 fL 04/24 2:18 AM [facility] SMITA Not Available Not Available 12/16/2024 16:47:08 04/24/20 24 04/24/2024 CBC panel - Blood by Autom ated count interpretati on and review of laboratory results Abnorm al Not Available Not Available 16:47:08 04/24/20 24 04/24/2024 Basic metab olic 2000 panel - Serum or Plasm a urea nitrogen [mass/volume ] in serum or plasma 13 mg/dL low: 7mg/dL high: 26mg/d L BUN 13 7 - 26 mg/dL 04/24 2:42 AM [facility] SMITA Not Available Not Available 12/16/2024 16:47:08 04/24/20 24 04/24/2024 Basic metab olic 2000 panel - Serum or Plasm a creatinine [mass/volume ] in serum or plasma 1.15 mg/dL low: 0.56mg /dLhig h: 0.96mg /dL high Creat inine 1.15 (H) 0.56 - 0.96 mg/dL 04/24 2:42 AM [facility] SMITA Not Available Not Available 12/16/2024 16:47:08 04/24/20 24 04/24/2024 Basic metab olic 2000 panel - Serum or Plasm a sodium [moles/volum e] in serum or plasma 139 mmol/ L low: 136mmo l/Lhig h: 145mmo l/L Hieuu m 139 136 - 145 mmol/ L 04/24 2:42 AM [facility] SMITA Not Available Not Available 12/16/2024 16:47:08 04/24/20 24 04/24/2024 Basic metab olic 1999 panel - Serum or Plasm a potassium [moles/volum e] in serum or plasma 3.5 mmol/ L low: 3.5mmo l/Lhig h: 4.5mmo l/L Potas sium 3.5 3.5 - 4.5 mmol/ L 04/24 2:[address] [facility] SMITA Not Available Not Available 12/16/2024 16:47:08 04/24/20 24 04/24/2024 Basic metab olic 2000 panel - Serum or Plasm a chloride [moles/volum e] in serum or plasma 110 mmol/ L low: 98mmol /Lhigh : 107mmo l/L high Chlor lobo 110 (H) 98 - 107 mmol/ L 04/24 2:42 AM [facility] SMITA Not Available Not Available 12/16/2024 16:47:08 04/24/20 24 04/24/2024 Basic metab olic 1999 panel - Serum or Plasm a carbon dioxide, total [moles/volum e] in serum or plasma 22 mmol/ L low: 22mmol /Lhigh : 29mmol /L CO2 22 22 - 29 mmol/ L 04/24 2:42 AM [facility] SMITA Not Available Not Available 12/16/2024 16:47:08 04/24/20 24 04/24/2024 Basic metab olic 2000 panel - Serum or Plasm a glucose [mass/volume ] in serum or plasma 120 mg/dL low: 70mg/d Lhigh: 115mg/ dL high Gluco se 120 (H) 70 - 115 mg/dL 04/24 2:42 AM [facility] SMITA Not Available Not Available 12/16/2024 16:47:08 04/24/20 24 04/24/2024 Basic metab olic 2000 panel - Serum or Plasm a calcium [moles/volum e] in serum or plasma 9 mg/dL low: 8.4mg/ dLhigh : 10.2mg /dL Calci um 9.0 8.4 - 10.2 mg/dL 04/24 2:42 AM T [email or web address] [email or web address] [facility] SM[facility] Not Available Not Available 12/16/2024 16:47:08 04/24/20 24 04/24/2024 Basic metab olic 2000 panel - Serum or Plasm a anion gap 7 low: 6high: 16 Anion Gap 7 6 - 16 04/24 2:42 AM CDT [email or web address] [email or web address] [facility] SM[facility] Not Available Not Available 12/16/2024 16:47:08 04/24/20 24 04/24/2024 Basic metab olic 2000 panel - Serum or Plasm a urea nitrogen/cre atinine [mass ratio] in serum or plasma 11 low: 7high: 23 BUN/C reati nine Ratio 11 7 - 23 04/24 2:42 AM T [email or web address] [email or web address] [facility] SM[facility] Not Available Not Available 12/16/2024 16:47:08 04/24/20 24 04/24/2024 Basic metab olic 2000 panel - Serum or Plasm a osmolality calculated 289 text: 275 - 295 mOsm/k g Osmol alirupesh Calcu lated 289 275 - 295 mOsm/ kg 04/24 2:42 AM [facility] [email or web address] [facility] SM[facility] Not Available Not Available 12/16/2024 16:47:08 04/24/20 24 04/24/2024 Basic metab olic 2000 panel - Serum or Plasm a glomerular filtration rate [volume rate/area] in serum, plasma or blood by creatinine-b ased formula (CKD-epi)/1. 73 sq M 65 text: >=90 mL/min /1.73 m2 low eGFR by CKD-E PI 65 (L) >=90 mL/mi n/1.7 3 m2 04/24 2:42 AM T [email or web address] [email or web address] [facility] SM[facility] Not Available Not Available 12/16/2024 16:47:08 04/24/20 24 04/24/2024 Basic metab olic 2000 panel - Serum or Plasm a interpretati on and review of laboratory results Abnorm al Not Available Not Available 16:47:08 04/26/20 24 04/26/2024 Magne sium [Mass /volu me] in Serum or Plasm a magnesium [mass/volume ] in serum or plasma 2.5 mg/dL low: 1.6mg/ dLhigh : 2.6mg/ dL Magne sium 2.5 1.6 - 2.6 mg/dL 04/26 2:29 AM T [facility] [employer] [facility] SMITA Not Available Not Available 12/16/2024 16:47:08 04/26/20 24 04/26/2024 Magne sium [Mass /volu me] in Serum or Plasm a interpretati on and review of laboratory results Normal Not Available Not Available 09/2024 16:47:08 04/26/20 24 04/26/2024 Renal funct ion 1999 panel - Serum or Plasm a urea nitrogen [mass/volume ] in serum or plasma 17 mg/dL low: 7mg/dL high: 26mg/d L BUN 17 7 - 26 mg/dL 04/26 2:29 AM T [facility] [employer] [facility] SM[facility] Not Available Not Available 12/16/2024 16:47:08 04/26/20 24 04/26/2024 Renal funct ion 1999 panel - Serum or Plasm a creatinine [mass/volume ] in serum or plasma 1.17 mg/dL low: 0.56mg /dLhig h: 0.96mg /dL high Creat inine 1.17 (H) 0.56 - 0.96 mg/dL 04/26 2:29 AM [facility] [email or web address] [facility] SMITA Not Available Not Available 12/16/2024 16:47:08 04/26/20 24 04/26/2024 Renal funct ion 1999 panel - Serum or Plasm a sodium [moles/volum e] in serum or plasma 139 mmol/ L low: 136mmo l/Lhig h: 145mmo l/L Sodiu m 139 136 - 145 mmol/ L 04/26 2:29 AM T [facility] [employer] [facility] SMITA Not Available Not Available 12/16/2024 16:47:08 04/26/20 24 04/26/2024 Renal funct ion 1999 panel - Serum or Plasm a potassium [moles/volum e] in serum or plasma 3.9 mmol/ L low: 3.5mmo l/Lhig h: 4.5mmo l/L Potas sium 3.9 3.5 - 4.5 mmol/ L 04/26 2:29 AM [facility] Not Available Not Available 12/16/2024 16:47:08 04/26/20 24 04/26/2024 Renal funct ion 1999 panel - Serum or Plasm a chloride [moles/volum e] in serum or plasma 110 mmol/ L low: 98mmol /Lhigh : 107mmo l/L high Chlor lobo 110 (H) 98 - 107 mmol/ L 04/26 2:29 AM [facility] Not Available Not Available 12/16/2024 16:47:08 04/26/20 24 04/26/2024 Renal funct ion 1999 panel - Serum or Plasm a carbon dioxide, total [moles/volum e] in serum or plasma 25 mmol/ L low: 22mmol /Lhigh : 29mmol /L CO2 25 22 - 29 mmol/ L 04/26 2:29 AM [facility] Not Available Not Available 12/16/2024 16:47:08 04/26/20 24 04/26/2024 Renal funct ion 1999 panel - Serum or Plasm a glucose [mass/volume ] in serum or plasma 83 mg/dL low: 70mg/d Lhigh: 115mg/ dL Gluco se 83 70 - 115 mg/dL 04/26 2:29 AM [facility] Not Available Not Available 12/16/2024 16:47:08 04/26/20 24 04/26/2024 Renal funct ion 1999 panel - Serum or Plasm a albumin [mass/volume ] in serum or plasma by bromocresol green (bcg) dye binding method 2.8 g/dL low: 3.4g/d Lhigh: 5g/dL low Album in 2.8 (L) 3.4 - 5.0 g/dL 04/26 2:29 AM [facility] Not Available Not Available 12/16/2024 16:47:08 08/10/20 24 04/26/2024 Renal funct ion 1999 panel - Serum or Plasm a calcium [moles/volum e] in serum or plasma 8.1 mg/dL low: 8.4mg/ dLhigh : 10.2mg /dL low Calci um 8.1 (L) 8.4 - 10.2 mg/dL 04/26 2:29 AM CDT [employer] [facility] SMITA Not Available Not Available 12/16/2024 16:47:08 04/26/20 24 04/26/2024 Renal funct ion 1999 panel - Serum or Plasm a phosphate [mass/volume ] in serum or plasma 4.1 mg/dL low: 2.9mg/ dLhigh : 5.1mg/ dL Phosp horus 4.1 2.9 - 5.1 mg/dL 04/26 2:29 AM CDT [employer] [facility] SMITA Not Available Not Available 12/16/2024 16:47:08 04/26/20 24 04/26/2024 Renal funct ion 1999 panel - Serum or Plasm a anion gap 4 low: 6high: 16 low Anion Gap 4 (L) 6 - 16 04/26 2:29 AM CDT [employer] [facility] SMITA Not Available Not Available 12/16/2024 16:47:08 04/26/20 24 04/26/2024 Renal funct ion 1999 panel - Serum or Plasm a urea nitrogen/cre atinine [mass ratio] in serum or plasma 15 low: 7high: 23 BUN/C reati nine Ratio 15 7 - 23 04/26 2:29 AM CDT [employer] [facility] SMITA Not Available Not Available 12/16/2024 16:47:08 04/26/20 24 04/26/2024 Renal funct ion 1999 panel - Serum or Plasm a osmolality calculated 289 text: 275 - 295 mOsm/k g Osmol ality Calcu lated 289 275 - 295 mOsm/ kg 04/26 2:29 AM CDT [employer] [facility] SMITA Not Available Not Available 12/16/2024 16:47:08 04/26/20 24 04/26/2024 Renal funct ion 1999 panel - Serum or Plasm a glomerular filtration rate [volume rate/area] in serum, plasma or blood by creatinine-b ased formula (CKD-epi)/1. 73 sq M 64 text: >=90 mL/min /1.73 m2 low eGFR by CKD-E PI 64 (L) >=90 mL/mi n/1.7 3 m2 04/26 2:29 AM [facility] [employer] [facility] SMITA Not Available Not Available 12/16/2024 16:47:08 04/26/20 24 04/26/2024 Renal funct ion 2000 panel - Serum or Plasm a interpretati on and review of laboratory results Abnorm al Not Available Not Available 16:47:08 05/17/20 24 05/18/2024 Hemog lobin A1c/H emogl obin. total in Blood hemoglobin A1C/hemoglob in.total in blood 5.6 % high: 5.6% Hemog lobin A1c 5.6 <=5.6 % 05/18 10:09 AM [facility] [employer] [facility] SMITA Not Available Not Available 12/16/2024 16:37:06 05/17/20 24 05/18/2024 Hemog lobin A1c/H emogl obin. total in Blood glucose mean value [mass/volume ] in blood estimated from glycated hemoglobin 114 mg/dL Estim atethalia Cagea ge Gluco se 114 mg/dL 05/18 10:09 AM [facility] [email or web address] [facility]ENTERMats[facility]I SMITA Not Available Not Available 12/16/2024 16:37:06 05/17/20 24 05/17/2024 Retic ulocy gualberto [#/vo lume] in Blood reticulocyte s/erythrocyt es in blood by automated count 1.49 % low: 0.5%hi gh: 2.4% Retic ulocy te Perce nt 1.49 0.50 - 2.40 % 05/17 9:15 AM [facility] [employer] SMITA Not Available Not Available 12/16/2024 16:37:06 05/17/20 24 05/17/2024 Retic ulocy gualberto [#/vo lume] in Blood reticulocyte s [#/volume] in blood by automated count 0.0615 text: 0.0200 - 0.1100 x10e6/ uL Retic ulocy te Absol red devil 0.061 5 0.020 0 - 0.110 0 x10E6 /uL 05/17 9:15 AM CDT [email or web address] [email or web address] [facility] SMITA Not Available Not Available 12/16/2024 16:37:06 05/17/20 24 05/17/2024 Retic ulocy gualberto [#/vo lume] in Blood hemoglobin [entitic mass] in reticulocyte s by automated count 27.9 pg low: 29pghi gh: 37.9pg low Ret-H E 27.9 (L) 29.0 - 37.9 pg 05/17 9:15 AM CDT [email or web address] [email or web address] [facility] SMITA Not Available Not Available 12/16/2024 16:37:06 05/17/20 24 05/17/2024 Retic ulocy gualberto [#/vo lume] in Blood immature reticulocyte s/reticulocy gualberto.total in blood 23.6 % low: 1.8%hi gh: 15.2% high Immat ure Retic ulocy te Fract ion 23.6 (H) 1.8 - 15.2 % 05/17 9:15 AM T [email or web address] [email or web address] [facility] SMITA Not Available Not Available 12/16/2024 16:37:06 05/17/20 24 05/17/2024 Retic ulocy gualberto [#/vo lume] in Blood interpretati on and review of laboratory results Abnorm al Not Available Not Available 16:37:06 05/17/20 24 05/17/2024 Kati tin [Mass /volu me] in Serum or Plasm a ferritin [mass/volume ] in serum or plasma 55 NG/mL low: 13NG/m Lhigh: 204NG/ mL Kati tin 55 13 - 204 ng/mL 05/17 9:44 AM T [email or web address] [email or web address] [facility] SM[facility] Not Available Not Available 12/16/2024 16:37:06 05/17/20 24 05/17/2024 Kati tin [Mass /volu me] in Serum or Plasm a interpretati on and review of laboratory results Normal Not Available Not Available 09/2024 16:37:06 05/17/20 24 05/17/2024 Iron satur ation [Mass Fract ion] in Serum or Plasm a iron [mass/volume ] in serum or plasma 41 ug/dL low: 40ug/d Lhigh: 150ug/ dL Iron 41 40 - 150 ug/dL 05/17 9:26 AM T [email or web address] [email or web address] [facility] [employer] SMITA Not Available Not Available 12/16/2024 16:37:06 05/17/20 24 05/17/2024 Iron satur ation [Mass Fract ion] in Serum or Plasm a transferrin [mass/volume ] in serum or plasma 224 mg/dL low: 174mg/ dLhigh : 382mg/ dL Trans kati n 224 174 - 382 mg/dL 05/17 9:26 AM T [email or web address] [email or web address] [facility] SMITA Not Available Not Available 12/16/2024 16:37:06 05/17/20 24 05/17/2024 Iron satur ation [Mass Fract ion] in Serum or Plasm a transferrin saturation % 15 % low: 16%hig h: 50% low Trans kati n Satur ation % 15 (L) 16 - 50 % 05/17 9:26 AM [facility] [email or web address] [facility] SM[facility] Not Available Not Available 12/16/2024 16:37:06 05/17/20 24 05/17/2024 Iron satur ation [Mass Fract ion] in Serum or Plasm a iron binding capacity [mass/volume ] in serum or plasma 280 ug/dL low: 240ug/ dLhigh : 450ug/ dL TIBC Calcu lated 280 240 - 450 ug/dL 05/17 9:26 AM T [email or web address] [email or web address] [facility] SMITA Not Available Not Available 12/16/2024 16:37:06 05/17/20 24 05/17/2024 Iron satur ation [Mass Fract ion] in Serum or Plasm a interpretati on and review of laboratory results Abnorm al Not Available Not Available 16:37:06 05/17/20 24 05/17/2024 Phosp hate [Mass /volu me] in Serum or Plasm a phosphate [mass/volume ] in serum or plasma 4 mg/dL low: 2.9mg/ dLhigh : 5.1mg/ dL Phosp horus 4.0 2.9 - 5.1 mg/dL 05/17 5:05 AM [facility] SM[facility] Not Available Not Available 12/16/2024 16:37:06 05/17/20 24 05/17/2024 Phosp hate [Mass /volu me] in Serum or Plasm a interpretati on and review of laboratory results Normal Not Available Not Available 09/2024 16:37:06 05/17/20 24 05/17/2024 Magne sium [Mass /volu me] in Serum or Plasm a magnesium [mass/volume ] in serum or plasma 2 mg/dL low: 1.6mg/ dLhigh : 2.6mg/ dL Magne sium 2.0 1.6 - 2.6 mg/dL 05/17 5:05 AM [facility] SM[facility] Not Available Not Available 12/16/2024 16:37:06 05/17/20 24 05/17/2024 Magne sium [Mass /volu me] in Serum or Plasm a interpretati on and review of laboratory results Normal Not Available Not Available 09/2024 16:37:06 05/17/20 24 05/17/2024 Basic metab olic 2000 panel - Serum or Plasm a urea nitrogen [mass/volume ] in serum or plasma 13 mg/dL low: 7mg/dL high: 26mg/d L BUN 13 7 - 26 mg/dL 05/17 5:05 AM [facility] SM[facility] Not Available Not Available 12/16/2024 16:37:06 05/17/20 24 05/17/2024 Basic metab olic 1999 panel - Serum or Plasm a creatinine [mass/volume ] in serum or plasma 0.94 mg/dL low: 0.56mg /dLhig h: 0.96mg /dL Creat inine 0.94 0.56 - 0.96 mg/dL 05/17 5:05 AM [facility] SM[facility] Not Available Not Available 12/16/2024 16:37:06 05/17/20 24 05/17/2024 Basic metab olic 2000 panel - Serum or Plasm a sodium [moles/volum e] in serum or plasma 138 mmol/ L low: 136mmo l/Lhig h: 145mmo l/L Sodlizbethu m 138 136 - 145 mmol/ L 05/17 5:05 AM [facility] SMITA Not Available Not Available 12/16/2024 16:37:06 05/17/20 24 05/17/2024 Basic metab olic 1999 panel - Serum or Plasm a potassium [moles/volum e] in serum or plasma 4 mmol/ L low: 3.5mmo l/Lhig h: 4.5mmo l/L Potas sium 4.0 3.5 - 4.5 mmol/ L 05/17 5:05 AM [facility] SMITA Not Available Not Available 12/16/2024 16:37:06 05/17/20 24 05/17/2024 Basic metab olic 1999 panel - Serum or Plasm a chloride [moles/volum e] in serum or plasma 110 mmol/ L low: 98mmol /Lhigh : 107mmo l/L high Chlor lobo 110 (H) 98 - 107 mmol/ L 05/17 5:05 AM [facility] SMITA Not Available Not Available 12/16/2024 16:37:06 05/17/20 24 05/17/2024 Basic metab olic 1999 panel - Serum or Plasm a carbon dioxide, total [moles/volum e] in serum or plasma 23 mmol/ L low: 22mmol /Lhigh : 29mmol /L CO2 23 22 - 29 mmol/ L 05/17 5:05 AM [facility] SMITA Not Available Not Available 12/16/2024 16:37:06 05/17/20 24 05/17/2024 Basic metab olic 1999 panel - Serum or Plasm a glucose [mass/volume ] in serum or plasma 89 mg/dL low: 70mg/d Lhigh: 115mg/ dL Gluco se 89 70 - 115 mg/dL 05/17 5:05 AM [facility] SMITA Not Available Not Available 12/16/2024 16:37:06 05/17/20 24 05/17/2024 Basic metab olic 1999 panel - Serum or Plasm a calcium [moles/volum e] in serum or plasma 8.2 mg/dL low: 8.4mg/ dLhigh : 10.2mg /dL low Calci um 8.2 (L) 8.4 - 10.2 mg/dL 05/17 5:05 AM [facility] Not Available Not Available 12/16/2024 16:37:06 05/17/20 24 05/17/2024 Basic metab olic 2000 panel - Serum or Plasm a anion gap 5 low: 6high: 16 low Anion Gap 5 (L) 6 - 16 05/17 5:05 AM [facility] Not Available Not Available 12/16/2024 16:37:06 05/17/20 24 05/17/2024 Basic metab olic 2000 panel - Serum or Plasm a urea nitrogen/cre atinine [mass ratio] in serum or plasma 14 low: 7high: 23 BUN/C reati nine Ratio 14 7 - 23 05/17 5:05 AM [facility] Not Available Not Available 12/16/2024 16:37:06 05/17/20 24 05/17/2024 Basic metab olic 2000 panel - Serum or Plasm a osmolality calculated 286 text: 275 - 295 mOsm/k g Osmol sowmya Vargas lated 286 275 - 295 mOsm/ kg 05/17 5:05 AM [facility] Not Available Not Available 12/16/2024 16:37:06 05/17/20 24 05/17/2024 Basic metab olic 2000 panel - Serum or Plasm a glomerular filtration rate [volume rate/area] in serum, plasma or blood by creatinine-b ased formula (CKD-epi)/1. 73 sq M 83 text: >=90 mL/min /1.73 m2 low eGFR by CKD-E PI 83 (L) >=90 mL/mi n/1.7 3 m2 05/17 5:05 AM [facility] Not Available Not Available 12/16/2024 16:37:06 05/17/20 24 05/17/2024 Basic metab olic 2000 panel - Serum or Plasm a interpretati on and review of laboratory results Abnorm al Not Available Not Available 16:37:06 05/17/20 24 05/17/2024 CBC panel - Blood by Autom ated count leukocytes [#/volume] in blood by automated count 7.4 text: 4.0 - 10.7 x10e9/ L WBC 7.4 4.0 - 10.7 x10E9 /L 05/17 4:41 AM T [email or web address] [email or web address] [facility] SM[facility] Not Available Not Available 12/16/2024 16:37:06 05/17/20 24 05/17/2024 CBC panel - Blood by Autom ated count erythrocytes [#/volume] in blood by automated count 3.96 text: 3.90 - 5.20 x10e12 /L RBC Count 3.96 3.90 - 5.20 x10E1 2/L 05/17 4:41 AM [facility] [email or web address] [facility] SM[facility] Not Available Not Available 12/16/2024 16:37:06 05/17/20 24 05/17/2024 CBC panel - Blood by Autom ated count hemoglobin [mass/volume ] in blood 10.6 g/dL low: 11.9g/ dLhigh : 15.8g/ dL low Hemog lobin 10.6 (L) 11.9 - 15.8 g/dL 05/17 4:41 AM [facility] [employer] [facility] SMITA Not Available Not Available 12/16/2024 16:37:06 05/17/20 24 05/17/2024 CBC panel - Blood by Autom ated count hematocrit [volume fraction] of blood by automated count 35 % low: 34.8%h igh: 46.1% Hemat ocrit 35.0 34.8 - 46.1 % 05/17 4:41 AM [facility] [employer] [facility] Systems[facility] SMITA Not Available Not Available 12/16/2024 16:37:06 05/17/20 24 05/17/2024 CBC panel - Blood by Autom ated count MCV [entitic mean volume] in red blood cells by automated count 88.4 fL low: 80fLhi gh: 98fL MCV 88.4 80.0 - 98.0 fL 05/17 4:41 AM [email or web address] [email or web address] [facility] Not Available Not Available 12/16/2024 16:37:06 05/17/20 24 05/17/2024 CBC panel - Blood by Autom ated count MCH [entitic mass] by automated count 26.8 pg low: 26.7pg high: 33.6pg MCH 26.8 26.7 - 33.6 pg 05/17 4:41 AM [facility] Not Available 12/16/2024 16:37:06 05/17/20 24 05/17/2024 CBC panel - Blood by Autom ated count MCHC [entitic mass/volume] in red blood cells by automated count 30.3 g/dL low: 31.7g/ dLhigh : 36.3g/ dL low MCHC 30.3 (L) 31.7 - 36.3 g/dL 05/17 4:41 AM [facility] Not Available Not Available 12/16/2024 16:37:06 05/17/20 24 05/17/2024 CBC panel - Blood by Autom ated count erythrocyte [distwidth] in red blood cells by automated count 14.2 % low: 11.3%h igh: 14.8% RDW-C V 14.2 11.3 - 14.8 % 05/17 4:41 AM [facility] Not Available Not Available 12/16/2024 16:37:06 05/17/20 24 05/17/2024 CBC panel - Blood by Autom ated count platelets [#/volume] in blood by automated count 247 text: 150 - 420 x10e9/ L Plate let Count 247 150 - 420 x10E9 /L 05/17 4:41 AM [facility] Not Available Not Available 12/16/2024 16:37:06 05/17/20 24 05/17/2024 CBC panel - Blood by Autom ated count platelet [entitic mean volume] in blood by automated count 9.9 fL low: 7.8fLh igh: 11.4fL MPV 9.9 7.8 - 11.4 fL 05/17 4:41 AM [facility] Not Available Not Available 12/16/2024 16:37:06 05/17/20 24 05/17/2024 CBC panel - Blood by Autom ated count interpretati on and review of laboratory results Abnorm al Not Available Not Available 16:37:06 05/18/20 24 05/18/2024 Phosp hate [Mass /volu me] in Serum or Plasm a phosphate [mass/volume ] in serum or plasma 4.7 mg/dL low: 2.9mg/ dLhigh : 5.1mg/ dL Phosp horus 4.7 2.9 - 5.1 mg/dL 05/18 5:01 AM [facility] [email or web address] [facility] Not Available Not Available 12/16/2024 16:37:07 05/18/20 24 05/18/2024 Phosp hate [Mass /volu me] in Serum or Plasm a interpretati on and review of laboratory results Normal Not Available Not Available 09/2024 16:37:07 05/18/20 24 05/18/2024 Magne sium [Mass /volu me] in Serum or Plasm a magnesium [mass/volume ] in serum or plasma 2.1 mg/dL low: 1.6mg/ dLhigh : 2.6mg/ dL Magne sium 2.1 1.6 - 2.6 mg/dL 05/18 5:01 AM [facility] [email or web address] [facility] Not Available Not Available 12/16/2024 16:37:07 05/18/20 24 05/18/2024 Magne sium [Mass /volu me] in Serum or Plasm a interpretati on and review of laboratory results Normal Not Available Not Available 09/2024 16:37:07 05/18/20 24 05/18/2024 Basic metab olic 2000 panel - Serum or Plasm a urea nitrogen [mass/volume ] in serum or plasma 12 mg/dL low: 7mg/dL high: 26mg/d L BUN 12 7 - 26 mg/dL 05/18 5:01 AM [facility] [employer] [facility] Not Available Not Available 12/16/2024 16:37:07 05/18/20 24 05/18/2024 Basic metab olic 2000 panel - Serum or Plasm a creatinine [mass/volume ] in serum or plasma 1.09 mg/dL low: 0.56mg /dLhig h: 0.96mg /dL high Creat inine 1.09 (H) 0.56 - 0.96 mg/dL 05/18 5:01 AM [facility] Not Available Not Available 12/16/2024 16:37:07 05/18/20 24 05/18/2024 Basic metab olic 1999 panel - Serum or Plasm a sodium [moles/volum e] in serum or plasma 138 mmol/ L low: 136mmo l/Lhig h: 145mmo l/L Sodiu m 138 136 - 145 mmol/ L 05/18 5:01 AM [facility] Not Available Not Available 12/16/2024 16:37:07 05/18/20 24 05/18/2024 Basic metab olic 1999 panel - Serum or Plasm a potassium [moles/volum e] in serum or plasma 4.1 mmol/ L low: 3.5mmo l/Lhig h: 4.5mmo l/L Potas sium 4.1 3.5 - 4.5 mmol/ L 05/18 5:01 AM [facility] Not Available Not Available 12/16/2024 16:37:07 05/18/20 24 05/18/2024 Basic metab olic 1999 panel - Serum or Plasm a chloride [moles/volum e] in serum or plasma 108 mmol/ L low: 98mmol /Lhigh : 107mmo l/L high Chlor lobo 108 (H) 98 - 107 mmol/ L 05/18 5:01 AM [facility] Not Available Not Available 12/16/2024 16:37:07 05/18/20 24 05/18/2024 Basic metab olic 1999 panel - Serum or Plasm a carbon dioxide, total [moles/volum e] in serum or plasma 22 mmol/ L low: 22mmol /Lhigh : 29mmol /L CO2 22 22 - 29 mmol/ L 05/18 5:01 AM [facility] Not Available Not Available 12/16/2024 16:37:07 05/18/20 24 05/18/2024 Basic metab olic 1999 panel - Serum or Plasm a glucose [mass/volume ] in serum or plasma 91 mg/dL low: 70mg/d Lhigh: 115mg/ dL Gluco se 91 70 - 115 mg/dL 05/18 5:01 AM [facility] Not Available Not Available 12/16/2024 16:37:07 05/18/20 24 05/18/2024 Basic metab olic 1999 panel - Serum or Plasm a calcium [moles/volum e] in serum or plasma 8.8 mg/dL low: 8.4mg/ dLhigh : 10.2mg /dL Calci um 8.8 8.4 - 10.2 mg/dL 05/18 5:01 AM [facility] Not Available Not Available 12/16/2024 16:37:07 05/18/20 24 05/18/2024 Basic metab olic 1999 panel - Serum or Plasm a anion gap 8 low: 6high: 16 Anion Gap 8 6 - 16 05/18 5:01 AM [facility] Not Available Not Available 12/16/2024 16:37:07 05/18/20 24 05/18/2024 Basic metab olic 1999 panel - Serum or Plasm a urea nitrogen/cre atinine [mass ratio] in serum or plasma 11 low: 7high: 23 BUN/C reati nine Ratio 11 7 - 23 05/18 5:01 AM [facility] Not Available Not Available 12/16/2024 16:37:07 05/18/20 24 05/18/2024 Basic metab olic 2000 panel - Serum or Plasm a osmolality calculated 285 text: 275 - 295 mOsm/k g Osmol ality Calcu lated 285 275 - 295 mOsm/ kg 05/18 5:01 AM [facility] Not Available Not Available 12/16/2024 16:37:07 05/18/20 24 05/18/2024 Basic metab olic 2000 panel - Serum or Plasm a glomerular filtration rate [volume rate/area] in serum, plasma or blood by creatinine-b ased formula (CKD-epi)/1. 73 sq M 69 text: >=90 mL/min /1.73 m2 low eGFR by CKD-E PI 69 (L) >=90 mL/mi n/1.7 3 m2 05/18 5:01 AM T [facility] [email or web address] [email or web address] Not Available Not Available 12/16/2024 16:37:07 05/18/20 24 05/18/2024 Basic metab olic 2000 panel - Serum or Plasm a interpretati on and review of laboratory results Abnorm al Not Available Not Available 16:37:07 05/18/20 24 05/18/2024 CBC panel - Blood by Autom ated count leukocytes [#/volume] in blood by automated count 8.6 text: 4.0 - 10.7 x10e9/ L WBC 8.6 4.0 - 10.7 x10E9 /L 05/18 4:32 AM CDT [facility] [employer] [facility] Not Available Not Available 12/16/2024 16:37:06 05/18/20 24 05/18/2024 CBC panel - Blood by Autom ated count erythrocytes [#/volume] in blood by automated count 4.27 text: 3.90 - 5.20 x10e12 /L RBC Count 4.27 3.90 - 5.20 x10E1 2/L 05/18 4:32 AM [facility] [employer] [facility] Not Available Not Available 12/16/2024 16:37:06 05/18/20 24 05/18/2024 CBC panel - Blood by Autom ated count hemoglobin [mass/volume ] in blood 11.8 g/dL low: 11.9g/ dLhigh : 15.8g/ dL low Hemog lobin 11.8 (L) 11.9 - 15.8 g/dL 05/18 4:32 AM T [facility] [email or web address] [facility] Not Available Not Available 12/16/2024 16:37:06 05/18/20 24 05/18/2024 CBC panel - Blood by Autom ated count hematocrit [volume fraction] of blood by automated count 37.3 % low: 34.8%h igh: 46.1% Hemat ocrit 37.3 34.8 - 46.1 % 05/18 4:32 AM [facility] SMITA Not Available Not Available 12/16/2024 16:37:06 05/18/20 24 05/18/2024 CBC panel - Blood by Autom ated count MCV [entitic mean volume] in red blood cells by automated count 87.4 fL low: 80fLhi gh: 98fL MCV 87.4 80.0 - 98.0 fL 05/18 4:32 AM [facility] SMITA Not Available Not Available 12/16/2024 16:37:06 05/18/20 24 05/18/2024 CBC panel - Blood by Autom ated count MCH [entitic mass] by automated count 27.6 pg low: 26.7pg high: 33.6pg MCH 27.6 26.7 - 33.6 pg 05/18 4:32 AM [facility] SMITA Not Available Not Available 12/16/2024 16:37:06 05/18/20 24 05/18/2024 CBC panel - Blood by Autom ated count MCHC [entitic mass/volume] in red blood cells by automated count 31.6 g/dL low: 31.7g/ dLhigh : 36.3g/ dL low MCHC 31.6 (L) 31.7 - 36.3 g/dL 05/18 4:32 AM [facility] SMITA Not Available Not Available 12/16/2024 16:37:06 05/18/20 24 05/18/2024 CBC panel - Blood by Autom ated count erythrocyte [distwidth] in red blood cells by automated count 14.1 % low: 11.3%h igh: 14.8% RDW-C V 14.1 11.3 - 14.8 % 05/18 4:32 AM [facility] SMITA Not Available Not Available 12/16/2024 16:37:06 05/18/20 24 05/18/2024 CBC panel - Blood by Autom ated count platelets [#/volume] in blood by automated count 272 text: 150 - 420 x10e9/ L Plate let Count 272 150 - 420 x10E9 /L 05/18 4:32 AM [facility] Not Available Not Available 12/16/2024 16:37:06 05/18/20 24 05/18/2024 CBC panel - Blood by Autom ated count platelet [entitic mean volume] in blood by automated count 9.8 fL low: 7.8fLh igh: 11.4fL MPV 9.8 7.8 - 11.4 fL 05/18 4:32 AM T [facility] Not Available Not Available 12/16/2024 16:37:06 05/18/20 24 05/18/2024 CBC panel - Blood by Autom ated count interpretati on and review of laboratory results Abnorm al Not Available Not Available 16:37:06 05/18/20 24 05/18/2024 Lacta te dehyd rogen ase [Enzy matic activ ity/v olume ] in Serum or Plasm a by Lacta te to pyruv ate react ion lactate dehydrogenas e [enzymatic activity/vol ume] in serum or plasma by lactate to pyruvate reaction 164 text: 125 - 243 units/ L LDH Total 164 125 - 243 Units /L 05/18 5:01 AM [facility] Not Available Not Available 12/16/2024 16:37:06 05/18/20 24 05/18/2024 Lacta te dehyd rogen ase [Enzy matic activ ity/v olume ] in Serum or Plasm a by Lacta te to pyruv ate react ion interpretati on and review of laboratory results Normal Not Available Not Available 09/2024 16:37:06 12/13/19 25 12/12/2024 Magne sium [Mass /volu me] in Serum or Plasm a magnesium [mass/volume ] in serum or plasma 2.2 mg/dL low: 1.6mg/ dLhigh : 2.6mg/ dL Magne sium 2.2 1.6 - 2.6 mg/dL 12/12 7:11 PM [facility] Not Available Not Available 12/16/2024 16:47:01 12/13/19 25 12/12/2024 Magne sium [Mass /volu me] in Serum or Plasm a interpretati on and review of laboratory results Normal Not Available Not Available 09/2024 16:47:01 12/13/19 25 12/12/2024 CBC W Auto Diffe renti al panel - Blood leukocytes [#/volume] in blood by automated count 9.5 text: 4.0 - 10.7 x10e9/ L WBC 9.5 4.0 - 10.7 x10E9 /L 12/12 6:53 PM CDT [facility] Not Available Not Available 12/16/2024 16:47:01 12/13/19 25 12/12/2024 CBC W Auto Diffe renti al panel - Blood erythrocytes [#/volume] in blood by automated count 4.28 text: 3.90 - 5.20 x10e12 /L RBC Count 4.28 3.90 - 5.20 x10E1 2/L 12/12 6:53 PM CDT [facility] Not Available Not Available 12/16/2024 16:47:01 12/13/19 25 12/12/2024 CBC W Auto Diffe renti al panel - Blood hemoglobin [mass/volume ] in blood 12.2 g/dL low: 11.9g/ dLhigh : 15.8g/ dL Hemog lobin 12.2 11.9 - 15.8 g/dL 12/12 6:53 PM CDT [facility] Not Available Not Available 12/16/2024 16:47:01 12/13/19 25 12/12/2024 CBC W Auto Diffe renti al panel - Blood hematocrit [volume fraction] of blood by automated count 37.9 % low: 34.8%h igh: 46.1% Hemat ocrit 37.9 34.8 - 46.1 % 12/12 6:53 PM CDT [facility] Not Available Not Available 12/16/2024 16:47:01 12/13/19 25 12/12/2024 CBC W Auto Diffe renti al panel - Blood MCV [entitic mean volume] in red blood cells by automated count 88.6 fL low: 80fLhi gh: 98fL MCV 88.6 80.0 - 98.0 fL 12/12 6:53 PM CDT [facility] Not Available Not Available 12/16/2024 16:47:01 12/13/19 25 12/12/2024 CBC W Auto Diffe renti al panel - Blood MCH [entitic mass] by automated count 28.5 pg low: 26.7pg high: 33.6pg MCH 28.5 26.7 - 33.6 pg 12/12 6:53 PM CDT [facility] Not Available Not Available 12/16/2024 16:47:01 12/13/19 25 12/12/2024 CBC W Auto Diffe renti al panel - Blood MCHC [entitic mass/volume] in red blood cells by automated count 32.2 g/dL low: 31.7g/ dLhigh : 36.3g/ dL MCHC 32.2 31.7 - 36.3 g/dL 12/12 6:53 PM CDT [facility] Not Available Not Available 12/16/2024 16:47:01 12/13/1912/12/2024 CBC W Auto Diffe renti al panel - Blood erythrocyte [distwidth] in red blood cells by automated count 13.5 % low: 11.3%h igh: 14.8% RDW-C V 13.5 11.3 - 14.8 % 12/12 6:53 PM CDT [facility] Not Available Not Available 12/16/2024 16:47:01 12/13/1912/12/2024 CBC W Auto Diffe renti al panel - Blood platelets [#/volume] in blood by automated count 268 text: 150 - 420 x10e9/ L Plate let Count 268 150 - 420 x10E9 /L 12/12 6:53 PM CDT [facility] Not Available Not Available 12/16/2024 16:47:01 12/13/19 25 12/12/2024 CBC W Auto Diffe renti al panel - Blood platelet [entitic mean volume] in blood by automated count 10.5 fL low: 7.8fLh igh: 11.4fL MPV 10.5 7.8 - 11.4 fL 12/12 6:53 PM CDT [facility] Not Available Not Available 12/16/2024 16:47:01 12/13/19 25 12/12/2024 CBC W Auto Diffe renti al panel - Blood neutrophils/ leukocytes in blood by automated count 57.3 % low: 41%hig h: 74% Neutr ophil % 57.3 41.0 - 74.0 % 12/12 6:53 PM CDT [facility] SM[facility] Not Available Not Available 12/16/2024 16:47:01 12/13/19 25 12/12/2024 CBC W Auto Diffe renti al panel - Blood lymphocytes/ leukocytes in blood by automated count 35.3 % low: 17%hig h: 47% Lymph ocyte % 35.3 17.0 - 47.0 % 12/12 6:53 PM CDT [facility] SM[facility] Not Available Not Available 12/16/2024 16:47:01 12/13/19 25 12/12/2024 CBC W Auto Diffe renti al panel - Blood monocytes/le ukocytes in blood by automated count 5.3 % low: 3%high : 11% Monoc yte % 5.3 3.0 - 11.0 % 12/12 6:53 PM CDT [facility] SM[facility] Not Available Not Available 12/16/2024 16:47:01 12/13/19 25 12/12/2024 CBC W Auto Diffe renti al panel - Blood eosinophils/ leukocytes in blood by automated count 1.4 % low: 0%high : 7% Eosin ophil % 1.4 0.0 - 7.0 % 12/12 6:53 PM CDT [facility] Not Available Not Available 12/16/2024 16:47:01 12/13/19 25 12/12/2024 CBC W Auto Diffe renti al panel - Blood basophils/le ukocytes in blood by automated count 0.4 % low: 0%high : 1.6% Basop hil % 0.4 0.0 - 1.6 % 12/12 6:53 PM CDT [facility] Not Available Not Available 12/16/2024 16:47:01 12/13/19 25 12/12/2024 CBC W Auto Diffe renti al panel - Blood immature granulocytes /leukocytes in blood by automated count 0.3 % low: 0%high : 1% Immat ure Granu locyt es % 0.3 0.0 - 1.0 % 12/12 6:53 PM CDT [facility] Not Available Not Available 12/16/2024 16:47:01 12/13/19 25 12/12/2024 CBC W Auto Diffe renti al panel - Blood neutrophils [#/volume] in blood by automated count 5.42 text: 1.60 - 7.50 x10e9/ L Neutr ophil Absol red devil 5.42 1.60 - 7.50 x10E9 /L 12/12 6:53 PM CDT [facility] Not Available Not Available 12/16/2024 16:47:01 12/13/19 25 12/12/2024 CBC W Auto Diffe renti al panel - Blood lymphocytes [#/volume] in blood by automated count 3.34 text: 1.00 - 4.40 x10e9/ L Lymph ocyte Absol red devil 3.34 1.00 - 4.40 x10E9 /L 12/12 6:53 PM CDT [facility] Not Available Not Available 12/16/2024 16:47:01 12/13/19 25 12/12/2024 CBC W Auto Diffe renti al panel - Blood monocytes [#/volume] in blood by automated count 0.5 text: 0.15 - 1.00 x10e9/ L Monoc yte Absol red devil 0.50 0.15 - 1.00 x10E9 /L 12/12 6:53 PM CDT [facility] Not Available Not Available 12/16/2024 16:47:01 12/13/19 25 12/12/2024 CBC W Auto Diffe renti al panel - Blood eosinophils [#/volume] in blood 0.13 text: 0.00 - 0.60 x10e9/ L Eosin ophil Absol red devil 0.13 0.00 - 0.60 x10E9 /L 12/12 6:53 PM CDT [facility] Not Available Not Available 12/16/2024 16:47:01 12/13/19 25 12/12/2024 CBC W Auto Diffe renti al panel - Blood basophils [#/volume] in blood by automated count 0.04 text: 0.00 - 0.13 x10e9/ L Basop hil Absol red devil 0.04 0.00 - 0.13 x10E9 /L 12/12 6:53 PM CDT [facility] Not Available Not Available 12/16/2024 16:47:01 12/13/19 25 12/12/2024 CBC W Auto Diffe renti al panel - Blood interpretati on and review of laboratory results Normal Not Available Not Available 09/2024 16:47:01 12/13/19 25 12/12/2024 Compr ehens jeffy metab olic 1999 panel - Serum or Plasm a urea nitrogen [mass/volume ] in serum or plasma 7 mg/dL low: 7mg/dL high: 26mg/d L BUN 7 7 - 26 mg/dL 12/12 7:[address] [facility] Not Available Not Available 12/16/2024 16:37:00 12/13/19 25 12/12/2024 Compr ehens jeffy metab olic 1999 panel - Serum or Plasm a creatinine [mass/volume ] in serum or plasma 0.93 mg/dL low: 0.56mg /dLhig h: 0.96mg /dL Creat inine 0.93 0.56 - 0.96 mg/dL 12/12 7:[address] [facility] Not Available Not Available 12/16/2024 16:37:00 12/13/19 25 12/12/2024 Compr ehens jeffy metab olic 1999 panel - Serum or Plasm a sodium [moles/volum e] in serum or plasma 141 mmol/ L low: 136mmo l/Lhig h: 145mmo l/L Sodiu m 141 136 - 145 mmol/ L 12/12 7:[address] [facility] Not Available Not Available 12/16/2024 16:37:00 12/13/19 25 12/12/2024 Compr ehens jeffy metab olic 1999 panel - Serum or Plasm a potassium [moles/volum e] in serum or plasma 3.9 mmol/ L low: 3.5mmo l/Lhig h: 4.5mmo l/L Potas sium 3.9 3.5 - 4.5 mmol/ L 12/12 7:[address] [facility] Not Available Not Available 12/16/2024 16:37:00 12/13/19 25 12/12/2024 Compr ehens jeffy metab olic 1999 panel - Serum or Plasm a chloride [moles/volum e] in serum or plasma 107 mmol/ L low: 98mmol /Lhigh : 107mmo l/L Chlor lobo 107 98 - 107 mmol/ L 12/12 7:[address] [facility] Not Available Not Available 12/16/2024 16:37:00 12/13/19 25 12/12/2024 Compr ehens jeffy metab olic 1999 panel - Serum or Plasm a carbon dioxide, total [moles/volum e] in serum or plasma 24 mmol/ L low: 22mmol /Lhigh : 29mmol /L CO2 24 22 - 29 mmol/ L 12/12 7:[address] [facility] Not Available Not Available 12/16/2024 16:37:00 12/13/19 25 12/12/2024 Compr ehens jeffy metab olic 1999 panel - Serum or Plasm a glucose [mass/volume ] in serum or plasma 87 mg/dL low: 70mg/d Lhigh: 99mg/d L Gluco se 87 70 - 99 mg/dL 12/12 7:11 PM CDT [facility] SMITA Not Available Not Available 12/16/2024 16:37:00 12/13/19 25 12/12/2024 Compr ehens jeffy metab olic 1999 panel - Serum or Plasm a calcium [moles/volum e] in serum or plasma 8.8 mg/dL low: 8.4mg/ dLhigh : 10.2mg /dL Calci um 8.8 8.4 - 10.2 mg/dL 12/12 7:11 PM CDT [facility] SM[facility] Not Available Not Available 12/16/2024 16:37:00 12/13/19 25 12/12/2024 Compr ens jeffy metab olic 1999 panel - Serum or Plasm a protein [mass/volume ] in serum or plasma 6.4 g/dL low: 6g/dLh igh: 8.3g/d L Prote in Total 6.4 6.0 - 8.3 g/dL 12/12 7:11 PM CDT [facility] SM[facility] Not Available Not Available 12/16/2024 16:37:00 12/13/1912/12/2024 Compr [facility] jeffy [facility] 2000 panel - Serum or Plasm a albumin [mass/volume ] in serum or plasma by bromocresol green (bcg) dye binding method 3.2 g/dL low: 3.4g/d Lhigh: 5g/dL low Album in 3.2 (L) 3.4 - 5.0 g/dL 12/12 7:11 PM CDT [facility] SM[facility] Not Available Not Available 12/16/2024 16:37:00 12/13/1912/12/2024 [address] [facility] jeffy [facility] 1999 panel - Serum or Plasm a bilirubin.to smita [mass/volume ] in serum or plasma 0.5 mg/dL low: 0.2mg/ dLhigh : 1.2mg/ dL Bilir ubin Total 0.5 0.2 - 1.2 mg/dL 12/12 7:11 PM CDT [facility] SMITA Not Available Not Available 12/16/2024 16:37:00 12/13/19 25 12/12/2024 Compr ehens jeffy metab olic 2000 panel - Serum or Plasm a alkaline phosphatase [enzymatic activity/vol ume] in serum or plasma 79 U/L low: 40U/Lh igh: 150U/L Alkal ine Phosp hatas e 79 40 - 150 U/L 12/12 7:11 PM CDT [facility] SMITA Not Available Not Available 12/16/2024 16:37:00 12/13/19 25 12/12/2024 Compr ehens jeffy metab olic 1999 panel - Serum or Plasm a alanine aminotransfe rase [enzymatic activity/vol ume] in serum or plasma by no addition of P-5'-P 14 U/L low: 5U/Lhi gh: 55U/L ALT 14 5 - 55 U/L 12/12 7:11 PM CDT [facility] SMITA Not Available Not Available 12/16/2024 16:37:00 12/13/19 25 12/12/2024 Compr ehens jeffy metab olic 1999 panel - Serum or Plasm a aspartate aminotransfe rase [enzymatic activity/vol ume] in serum or plasma 13 U/L low: 5U/Lhi gh: 34U/L AST 13 5 - 34 U/L 12/12 7:11 PM CDT [facility] SM[facility] Not Available Not Available 12/16/2024 16:37:00 12/13/19 25 12/12/2024 Compr ehens jeffy metab olic 1999 panel - Serum or Plasm a anion gap 10 low: 6high: 16 Anion Gap 10 6 - 16 12/12 7:11 PM CDT [facility] SM[facility] Not Available Not Available 12/16/2024 16:37:00 12/13/19 25 12/12/2024 Compr ehens jeffy metab olic 1999 panel - Serum or Plasm a urea nitrogen/cre atinine [mass ratio] in serum or plasma 8 low: 7high: 23 BUN/C reati nine Ratio 8 7 - 23 12/12 7:11 PM CDT [facility] SMITA Not Available Not Available 12/16/2024 16:37:00 12/13/19 25 12/12/2024 Compr ehens jeffy metab olic 1999 panel - Serum or Plasm a osmolality calculated 289 text: 275 - 295 mOsm/k g Osmol alirupesh Katieu lated 289 275 - 295 mOsm/ kg 12/12 7:11 PM CDT [facility] SMITA Not Available Not Available 12/16/2024 16:37:00 12/13/19 25 12/12/2024 Compr ehens jeffy metab olic 1999 panel - Serum or Plasm a albumin/glob ulin ratio 1 low: 1.1hig h: 2.3 low Album in/Gl obuli n Ratio 1.0 (L) 1.1 - 2.3 12/12 7:11 PM CDT [facility] [employer] SMITA Not Available Not Available 12/16/2024 16:37:00 12/13/19 25 12/12/2024 Compr Curse jeffy metab olic 1999 panel - Serum or Plasm a glomerular filtration rate [volume rate/area] in serum, plasma or blood by creatinine-b ased formula (CKD-epi 2020)/1.73 sq M 83 text: >=90 mL/min /1.73 m2 low eGFR by CKD-E PI 83 (L) >=90 mL/mi n/1.7 3 m2 12/12 7:11 PM CDT [facility] [email or web address] [facility] Not Available Not Available 12/16/2024 16:37:00 12/13/19 25 12/12/2024 [facility] Curse jeffy [employer] olic 1999 panel - Serum or Plasm a interpretati on and review of laboratory results Abnorm al Not Available Not Available 16:37:00 12/13/1912/12/2024 Phosp hate [Mass /volu me] in Serum or Plasm a phosphate [mass/volume ] in serum or plasma 3.5 mg/dL low: 2.9mg/ dLhigh : 5.1mg/ dL Phosp horus 3.5 2.9 - 5.1 mg/dL 12/12 7:11 PM T [facility] [email or web address] [facility] Not Available Not Available 12/16/2024 16:37:00 12/13/19 25 12/12/2024 Phosp hate [Mass /volu me] in Serum or Plasm a interpretati on and review of laboratory results Normal Not Available Not Available 09/2024 16:37:00 12/13/19 25 12/12/2024 CBC W Auto Diffe renti al panel - Blood leukocytes [#/volume] in blood by automated count 8.06 text: 4.00 - 12.00 10(3)/ mcL WBC 8.06 4.00 - 12.00 10(3) /mcL 12/12 9:47 AM CDT [facility] Not Available Not Available 12/16/2024 16:37:11 12/13/19 25 12/12/2024 CBC W Auto Diffe renti al panel - Blood erythrocytes [#/volume] in blood by automated count 4.36 text: 3.80 - 5.30 10(6)/ mcL RBC 4.36 3.80 - 5.30 10(6) /mcL 12/12 9:47 AM CD[facility] Not Available Not Available 12/16/2024 16:37:11 12/13/19 25 12/12/2024 CBC W Auto Diffe renti al panel - Blood hemoglobin [mass/volume ] in blood 12.6 g/dL low: 12g/dL high: 15.8g/ dL HEMOG LOBIN (HGB) 12.6 12.0 - 15.8 g/dL 12/12 9:47 AM CD[facility] Not Available Not Available 12/16/2024 16:37:11 12/13/19 25 12/12/2024 CBC W Auto Diffe renti al panel - Blood hematocrit [volume fraction] of blood by automated count 40.2 % low: 36%hig h: 47% HEMAT OCRIT (HCT) 40.2 36.0 - 47.0 % 12/12 9:47 AM CD[facility] Not Available Not Available 12/16/2024 16:37:11 12/13/19 25 12/12/2024 CBC W Auto Diffe renti al panel - Blood MCV [entitic mean volume] in red blood cells by automated count 92.2 fL low: 82fLhi gh: 96fL MCV 92.2 82.0 - 96.0 fL 12/12 9:47 AM CDT [facility] Not Available Not Available 12/16/2024 16:37:11 12/13/19 25 12/12/2024 CBC W Auto Diffe renti al panel - Blood MCH [entitic mass] by automated count 28.9 pg low: 26pghi gh: 34pg MCH 28.9 26.0 - 34.0 pg 12/12 9:47 AM CDT [facility] [employer] [facility] Not Available Not Available 12/16/2024 16:37:11 12/13/19 25 12/12/2024 CBC W Auto Diffe renti al panel - Blood MCHC [entitic mass/volume] in red blood cells by automated count 31.3 g/dL low: 31g/dL high: 36g/dL MCHC 31.3 31.0 - 36.0 g/dL 12/12 9:47 AM CDT [facility] [employer] [facility] Not Available Not Available 12/16/2024 16:37:11 12/13/19 25 12/12/2024 CBC W Auto Diffe renti al panel - Blood platelets [#/volume] in blood 274 text: 140 - 440 10(3)/ mcL PLATE LET COUNT 274 140 - 440 10(3) /mcL 12/12 9:47 AM CDT [facility] [employer] [facility] Not Available Not Available 12/16/2024 16:37:11 12/13/19 25 12/12/2024 CBC W Auto Diffe renti al panel - Blood erythrocyte [distwidth] in red blood cells by automated count 13.2 % low: 11.8%h igh: 15.5% RDW 13.2 11.8 - 15.5 % 12/12 9:47 AM CDT [facility] [employer] [facility] Not Available Not Available 12/16/2024 16:37:11 12/13/19 25 12/12/2024 CBC W Auto Diffe renti al panel - Blood platelet [entitic mean volume] in blood by automated count 10.9 fL low: 9.7fLh igh: 12.4fL MPV 10.9 9.7 - 12.4 fL 12/12 9:47 AM CDT [facility] [employer] [facility] Not Available Not Available 12/16/2024 16:37:11 03/28/12/12/2024 CBC W Auto Diffe renti al panel - Blood neutrophils/ leukocytes in blood by automated count 59.8 % low: 47%hig h: 73% NEUTR OPHIL S 59.8 47.0 - 73.0 % 12/12 9:[address] [facility] Not Available Not Available 12/16/2024 16:37:11 12/13/19 25 12/12/2024 CBC W Auto Diffe renti al panel - Blood lymphocytes/ leukocytes in blood by automated count 32.5 % low: 18%hig h: 42% LYMPH OCYTE S 32.5 18.0 - 42.0 % 12/12 9:47 AM CDT [facility] Not Available Not Available 12/16/2024 16:37:11 12/13/19 25 12/12/2024 CBC W Auto Diffe renti al panel - Blood monocytes/le ukocytes in blood by automated count 5.2 % low: 4%high : 12% MONOC YTES 5.2 4.0 - 12.0 % 12/12 9:[address] [facility] Not Available Not Available 12/16/2024 16:37:11 12/13/19 25 12/12/2024 CBC W Auto Diffe renti al panel - Blood eosinophils/ leukocytes in blood by automated count 2 % low: 0%high : 5% EOSIN OPHIL S 2.0 0.0 - 5.0 % 12/12 9:47 AM CDT [facility] Not Available Not Available 12/16/2024 16:37:11 12/13/19 25 12/12/2024 CBC W Auto Diffe renti al panel - Blood basophils/le ukocytes in blood by automated count 0.5 % low: 0%high : 1% BASOP HILS 0.5 0.0 - 1.0 % 12/12 9:[address] [facility] Not Available Not Available 12/16/2024 16:37:11 12/13/19 25 12/12/2024 CBC W Auto Diffe renti al panel - Blood neutrophils [#/volume] in blood by automated count 4.82 text: 1.60 - 7.70 10(3)/ mcL ABSOL SHUNGNAK NEUTR OPHIL S 4.82 1.60 - 7.70 10(3) /mcL 12/12 9:47 AM CDT [facility] [employer] [facility] Not Available Not Available 12/16/2024 16:37:11 12/13/19 25 12/12/2024 CBC W Auto Diffe renti al panel - Blood lymphocytes [#/volume] in blood by automated count 2.62 text: 1.30 - 3.20 10(3)/ mcL ABSOL SHUNGNAK LYMPH OCYTE S 2.62 1.30 - 3.20 10(3) /mcL 12/12 9:47 AM [facility] Not Available Not Available 12/16/2024 16:37:11 12/13/19 25 12/12/2024 CBC W Auto Diffe renti al panel - Blood monocytes [#/volume] in blood by automated count 0.42 text: 0.20 - 1.00 10(3)/ mcL ABSOL SHUNGNAK MONOC YTES 0.42 0.20 - 1.00 10(3) /mcL 12/12 9:47 AM CDT [facility] Not Available Not Available 12/16/2024 16:37:11 12/13/19 25 12/12/2024 CBC W Auto Diffe renti al panel - Blood eosinophils [#/volume] in blood by automated count 0.16 text: 0.00 - 0.40 10(3)/ mcL ABSOL SHUNG[place]K EOSIN OPHIL 0.16 0.00 - 0.40 10(3) /mcL 12/12 9:47 AM [facility] Not Available Not Available 12/16/2024 16:37:11 12/13/19 25 12/12/2024 CBC W Auto Diffe renti al panel - Blood basophils [#/volume] in blood by automated count 0.04 text: 0.00 - 0.10 10(3)/ mcL ABSOL SHUNGNAK BASOP HILS 0.04 0.00 - 0.10 10(3) /mcL 12/12 9:47 AM CDT [facility] Not Available Not Available 12/16/2024 16:37:11 12/13/19 25 12/12/2024 CBC W Auto Diffe renti al panel - Blood nucleated erythrocytes /leukocytes [ratio] in blood 0 NRBC PER 100 WBC 0 12/12 9:[address] [facility] Not Available Not Available 12/16/2024 16:37:11 12/13/19 25 12/12/2024 PT panel - Plate let poor plasm a by [employer] n assay prothrombin time (PT) 12.8 text: 11.6 - 14.8 sec PROTI ME-PA TIENT 12.8 11.6 - 14.8 sec 12/12 10:01 AM CDT [facility] Not Available Not Available 12/16/2024 16:37:11 12/13/19 25 12/12/2024 PT panel - Plate let poor plasm a by Coagu latio n assay INR in platelet poor plasma by coagulation assay 1 low: 0.9hig h: 1.2 INR 1.0 0.9 - 1.2 12/12 10:01 AM CDT [facility] Not Available Not Available 12/16/2024 16:37:11 12/13/19 25 12/12/2024 PT panel - Plate let poor plasm a by [employer]agu latio n assay interpretati on and review of laboratory results Normal Not Available Not Available 09/2024 16:37:11 12/13/19 25 12/12/2024 Compr ehens jeffy metab olic 2000 panel - Serum or Plasm a sodium [moles/volum e] in serum or plasma 142 mmol/ L low: 136mmo l/Lhig h: 145mmo l/L SODIU M 142 136 - 145 mmol/ L 12/12 10:10 AM CDT [facility] Not Available Not Available 12/16/2024 16:37:11 12/13/19 25 12/12/2024 Compr ehens jeffy metab olic 1999 panel - Serum or Plasm a potassium [moles/volum e] in serum or plasma 4 mmol/ L low: 3.5mmo l/Lhig h: 5.1mmo l/L POTAS SIUM 4.0 3.5 - 5.1 mmol/ L 12/12 10:10 AM CDT [facility] [employer] [facility] Not Available Not Available 12/16/2024 16:37:11 12/13/19 25 12/12/2024 Compr ehens jeffy metab olic 1999 panel - Serum or Plasm a chloride [moles/volum e] in serum or plasma 107 mmol/ L low: 98mmol /Lhigh : 107mmo l/L CHLOR LOBO 107 98 - 107 mmol/ L 12/12 10:10 AM CDT [facility] [employer] [facility] Not Available Not Available 12/16/2024 16:37:11 12/13/19 25 12/12/2024 Compr ehens jeffy metab olic 1999 panel - Serum or Plasm a carbon dioxide, total [moles/volum e] in serum or plasma 27 mmol/ L low: 22mmol /Lhigh : 30mmol /L CO2, VENOU S 27 22 - 30 mmol/ L 12/12 10:10 AM CDT [facility] [employer] [facility] Not Available Not Available 12/16/2024 16:37:11 12/13/19 25 12/12/2024 Compr ehens jeffy metab olic 1999 panel - Serum or Plasm a anion gap in serum or plasma by calculation 12 mmol/ L high: 18mmol /L ANION GAP 12.0 <18.0 mmol/ L 12/12 10:10 AM CDT [facility] [employer] [facility] Not Available Not Available 12/16/2024 16:37:11 12/13/19 25 12/12/2024 Compr ehens jeffy metab olic 2000 panel - Serum or Plasm a glucose [mass/volume ] in serum or plasma 106 mg/dL low: 70mg/d Lhigh: 99mg/d L high GLUCO SE 106 (H) 70 - 99 mg/dL 12/12 10:10 AM CD[facility] Not Available Not Available 12/16/2024 16:37:11 12/13/19 25 12/12/2024 Compr ehens jefyf metab olic 1999 panel - Serum or Plasm a urea nitrogen [mass/volume ] in serum or plasma 10 mg/dL low: 5mg/dL high: 18mg/d L BUN 10 5 - 18 mg/dL 12/12 10:10 AM CDT [facility] [employer] [facility] Not Available Not Available 12/16/2024 16:37:11 12/13/19 25 12/12/2024 Compr ehens jeffy metab olic 1999 panel - Serum or Plasm a creatinine [mass/volume ] in serum or plasma 0.94 mg/dL low: 0.6mg/ dLhigh : 1mg/dL CREAT ININE , BLOOD 0.94 0.60 - 1.00 mg/dL 12/12 10:10 AM CDT [facility] [employer] [facility] Not Available Not Available 12/16/2024 16:37:11 12/13/19 25 12/12/2024 Compr ehens jeffy metab olic 1999 panel - Serum or Plasm a urea nitrogen/cre atinine [mass ratio] in serum or plasma 11 text: 12 - 20 ratio low BUN/C REATI NINE RATIO 11 (L) 12 - 20 ratio 12/12 10:10 AM CDT [facility] [employer] [facility] Not Available Not Available 12/16/2024 16:37:11 12/13/19 25 12/12/2024 Compr ehens jeffy metab olic 1999 panel - Serum or Plasm a protein [mass/volume ] in serum or plasma 7.1 g/dL low: 6g/dLh igh: 8g/dL TOTAL PROTE IN 7.1 6.0 - 8.0 g/dL 12/12 10:10 AM CDT [facility] Not Available Not Available 12/16/2024 16:37:11 12/13/19 25 12/12/2024 Compr ehens jeffy metab olic 1999 panel - Serum or Plasm a albumin [mass/volume ] in serum or plasma 3.5 g/dL low: 3.5g/d Lhigh: 5g/dL ALBUM IN 3.5 3.5 - 5.0 g/dL 12/12 10:10 AM CDT [facility] [employer] [facility] Not Available Not Available 12/16/2024 16:37:11 12/13/19 25 12/12/2024 Compr Curse jeffy metab olic 1999 panel - Serum or Plasm a albumin/glob ulin [mass ratio] in serum or plasma 1 low: 1high: 2.2 A/G RATIO 1.0 1.0 - 2.2 12/12 10:10 AM CDT [facility] Not Available Not Available 12/16/2024 16:37:11 12/13/19 25 12/12/2024 Compr Curse jeffy [employer] ic 1999 panel - Serum or Plasm a calcium [mass/volume ] in serum or plasma 8.5 mg/dL low: 8.7mg/ dLhigh : 10.5mg /dL low CALCI UM 8.5 (L) 8.7 - 10.5 mg/dL 12/12 10:10 AM CDT [facility] Not Available Not Available 12/16/2024 16:37:11 12/13/19 25 12/12/2024 Compr Curse je[employer] ic 1999 panel - Serum or Plasm a bilirubin.to smita [mass/volume ] in serum or plasma 0.4 mg/dL low: 0.2mg/ dLhigh : 1.2mg/ dL T BILI 0.4 0.2 - 1.2 mg/dL 12/12 10:10 AM CDT [facility] [employer] [facility] Not Available Not Available 12/16/2024 16:37:11 12/13/19 25 12/12/2024 Compr Curse jeffy [employer] olic 1999 panel - Serum or Plasm a aspartate aminotransfe rase [enzymatic activity/vol ume] in serum or plasma 21 U/L high: 43U/L SGOT (AST) 21 <43 U/L 12/12 10:10 AM CD[facility] Not Available Not Available 12/16/2024 16:37:11 12/13/1912/12/2024 Compr ehens jeffy metab olic 1999 panel - Serum or Plasm a alanine aminotransfe rase [enzymatic activity/vol ume] in serum or plasma 12 U/L high: 56U/L SGPT (ALT) 12 <56 U/L 12/12 10:10 AM CDT [facility] Not Available Not Available 12/16/2024 16:37:11 12/13/19 25 12/12/2024 Compr ehens jeffy metab olic 1999 panel - Serum or Plasm a alkaline phosphatase [enzymatic activity/vol ume] in serum or plasma 78 U/L low: 40U/Lh igh: 150U/L ALKAL INE PHOSP HATAS E 78 40 - 150 U/L 12/12 10:10 AM CDT [facility] Not Available Not Available 12/16/2024 16:37:11 12/13/19 25 12/12/2024 Compr ehens jeffy metab olic 1999 panel - Serum or Plasm a glomerular filtration rate [volume rate/area] in serum, plasma or blood by creatinine-b ased formula (CKD-epi 2020)/1.73 sq M low: 60 GFR, ESTIM ATED >60 >=60 12/12 10:10 AM CDT [facility] Not Available Not Available 12/16/2024 16:37:11 12/13/19 25 12/12/2024 Compr ehens jeffy metab olic 1999 panel - Serum or Plasm a glomerular filtration rate [volume rate/area] in serum, plasma or blood by creatinine-b ased formula (MDRD)/1.73 sq M among black population low: 60 GFR, EST. AFRIC AN >60 >=60 12/12 10:10 AM CDT [facility] [employer] [facility] Not Available Not Available 12/16/2024 16:37:11 12/13/19 25 12/12/2024 Compr ehens jeffy metab olic 2000 panel - Serum or Plasm a glomerular filtration rate [volume rate/area] in serum, plasma or blood by creatinine-b ased formula (MDRD)/1.73 sq M among non black population low: 60 GFR, EST. NONAF RICAN >60 >=60 12/12 10:10 AM CDT [facility] Not Available Not Available 12/16/2024 16:37:11 12/13/1912/12/2024 Compr ehens jeffy metab olic 2000 panel - Serum or Plasm a interpretati on and review of laboratory results Abnorm al Not Available Not Available 16:37:11 12/14/1912/13/2024 Urina lysis panel - Urine by Autom ated color of urine by auto Yellow text: yellow , straw Color UA Yello w Yello w, Straw 12/13 12:17 PM CDT [facility] Not Available Not Available 12/16/2024 16:47:01 12/14/19 25 12/13/2024 Urina lysis panel - Urine by Autom ated clarity in urine by refractometr y automated Turbid text: clear abnormal Charlee ty UA Turbi d (A) Clear 12/13 12:17 PM CDT [facility] Not Available Not Available 12/16/2024 16:47:01 12/14/19 25 12/13/2024 Urina lysis panel - Urine by Autom ated glucose [presence] in urine by test strip Normal text: normal Gluco se UA Charleen l Charleen l 12/13 12:17 PM CDT [facility] Not Available Not Available 12/16/2024 16:47:01 12/14/19 25 12/13/2024 Urina lysis panel - Urine by Autom ated bilirubin.to smita [presence] in urine by test strip Negati ve text: negati ve Bilir ubin UA Negat jeffy Negat jeffy 12/13 12:17 PM CDT [facility] Not Available Not Available 12/16/2024 16:47:01 12/14/19 25 12/13/2024 Urina lysis panel - Urine by Autom ated ketones [presence] in urine by automated test strip Negati ve text: negati ve Keton e UA Negat jeffy Negat jeffy 12/13 12:17 PM [facility] Not Available Not Available 12/16/2024 16:47:01 12/14/19 25 12/13/2024 Urina lysis panel - Urine by Autom ated specific gravity of urine by test strip 1.013 low: 1.005h igh: 1.03 Speci fic Gravi ty UA 1.013 1.005 - 1.030 12/13 12:17 PM [facility] Not Available Not Available 12/16/2024 16:47:01 12/14/19 25 12/13/2024 Urina lysis panel - Urine by Autom ated hemoglobin [presence] in urine by test strip Negati ve text: negati ve Blood UA Negat jeffy Negat jeffy 12/13 12:17 PM [facility] Not Available Not Available 12/16/2024 16:47:01 12/14/19 25 12/13/2024 Urina lysis panel - Urine by Autom ated pH of urine by test strip 8 pH low: 5pHhig h: 9pH pH UA 8.0 5.0 - 9.0 pH 12/13 12:17 PM [facility] Not Available Not Available 12/16/2024 16:47:01 12/14/19 25 12/13/2024 Urina lysis panel - Urine by Autom ated protein [presence] in urine by test strip Negati ve text: negati ve Prote in UA Negat jeffy Negat jeffy 12/13 12:17 PM [facility] Not Available Not Available 12/16/2024 16:47:01 12/14/19 25 12/13/2024 Urina lysis panel - Urine by Autom ated urobilinogen [mass/volume ] in urine by automated test strip Normal text: normal mg/dL Urobi linog en UA Hcarleen l Charleen l mg/dL 12/13 12:17 PM [facility] Not Available Not Available 12/16/2024 16:47:01 12/14/19 25 12/13/2024 Urina lysis panel - Urine by Autom ated nitrite [presence] in urine by test strip Negati ve text: negati ve Nitri te UA Negat jeffy Negat jeffy 12/13 12:17 PM [facility] Not Available Not Available 12/16/2024 16:47:01 12/14/19 25 12/13/2024 Urina lysis panel - Urine by Autom ated leukocyte esterase [presence] in urine by test strip Negati ve text: negati ve Leuko cyte UA Negat jeffy Negat jeffy 12/13 12:17 PM [facility] Not Available Not Available 12/16/2024 16:47:01 12/14/1912/13/2024 Urina lysis panel - Urine by Autom ated interpretati on and review of laboratory results Abnorm al Not Available Not Available 16:47:01 12/14/19 25 12/13/2024 CBC panel - Blood by Autom ated count leukocytes [#/volume] in blood by automated count 9.4 text: 4.0 - 10.7 x10e9/ L WBC 9.4 4.0 - 10.7 x10E9 /L 12/13 3:55 AM [facility] Not Available Not Available 12/16/2024 16:47:01 12/14/1912/13/2024 CBC panel - Blood by Autom ated count erythrocytes [#/volume] in blood by automated count 4.21 text: 3.90 - 5.20 x10e12 /L RBC Count 4.21 3.90 - 5.20 x10E1 2/L 12/13 3:55 AM [facility] Not Available Not Available 12/16/2024 16:47:01 12/14/19 25 12/13/2024 CBC panel - Blood by Autom ated count hemoglobin [mass/volume ] in blood 12 g/dL low: 11.9g/ dLhigh : 15.8g/ dL Hemog lobin 12.0 11.9 - 15.8 g/dL 12/13 3:55 AM [facility] Not Available Not Available 12/16/2024 16:47:01 12/14/19 25 12/13/2024 CBC panel - Blood by Autom ated count hematocrit [volume fraction] of blood by automated count 37.5 % low: 34.8%h igh: 46.1% Hemat ocrit 37.5 34.8 - 46.1 % 12/13 3:55 AM [facility] Not Available Not Available 12/16/2024 16:47:01 12/14/1912/13/2024 CBC panel - Blood by Autom ated count MCV [entitic mean volume] in red blood cells by automated count 89.1 fL low: 80fLhi gh: 98fL MCV 89.1 80.0 - 98.0 fL 12/13 3:55 AM [facility] Not Available Not Available 12/16/2024 16:47:01 12/14/1912/13/2024 CBC panel - Blood by Autom ated count MCH [entitic mass] by automated count 28.5 pg low: 26.7pg high: 33.6pg MCH 28.5 26.7 - 33.6 pg 12/13 3:55 AM [facility] Not Available Not Available 12/16/2024 16:47:01 12/14/1912/13/2024 CBC panel - Blood by Autom ated count MCHC [entitic mass/volume] in red blood cells by automated count 32 g/dL low: 31.7g/ dLhigh : 36.3g/ dL MCHC 32.0 31.7 - 36.3 g/dL 12/13 3:55 AM [facility] Not Available Not Available 12/16/2024 16:47:01 12/14/19 25 12/13/2024 CBC panel - Blood by Autom ated count erythrocyte [distwidth] in red blood cells by automated count 13.6 % low: 11.3%h igh: 14.8% RDW-C V 13.6 11.3 - 14.8 % 12/13 3:55 AM CDT [email or web address] [email or web address] [facility] Not Available Not Available 12/16/2024 16:47:01 12/14/1912/13/2024 CBC panel - Blood by Autom ated count platelets [#/volume] in blood by automated count 252 text: 150 - 420 x10e9/ L Plate let Count 252 150 - 420 x10E9 /L 12/13 3:55 AM CDT [email or web address] [email or web address] [email or web address] Not Available Not Available 12/16/2024 16:47:01 12/14/19 25 12/13/2024 CBC panel - Blood by Autom ated count platelet [entitic mean volume] in blood by automated count 10.6 fL low: 7.8fLh igh: 11.4fL MPV 10.6 7.8 - 11.4 fL 12/13 3:55 AM T [email or web address] [email or web address] [email or web address] Not Available Not Available 12/16/2024 16:47:01 12/14/19 25 12/13/2024 CBC panel - Blood by Autom ated count interpretati on and review of laboratory results Normal Not Available Not Available 09/2024 16:47:01 12/14/19 25 12/13/2024 Renal funct ion 1999 panel - Serum or Plasm a urea nitrogen [mass/volume ] in serum or plasma 9 mg/dL low: 7mg/dL high: 26mg/d L BUN 9 7 - 26 mg/dL 12/13 4:23 AM [facility] [email or web address] [email or web address] Not Available Not Available 12/16/2024 16:47:01 12/14/1912/13/2024 Renal funct ion 1999 panel - Serum or Plasm a creatinine [mass/volume ] in serum or plasma 1.11 mg/dL low: 0.56mg /dLhig h: 0.96mg /dL high Creat inine 1.11 (H) 0.56 - 0.96 mg/dL 12/13 4:23 AM CDT [email or web address] [email or web address] [facility] Not Available Not Available 12/16/2024 16:47:01 12/14/19 25 12/13/2024 Renal funct ion 2000 panel - Serum or Plasm a sodium [moles/volum e] in serum or plasma 140 mmol/ L low: 136mmo l/Lhig h: 145mmo l/L Sodiu m 140 136 - 145 mmol/ L 12/13 4:23 AM [facility] [email or web address] [facility] Not Available Not Available 12/16/2024 16:47:01 12/14/19 25 12/13/2024 Renal funct ion 1999 panel - Serum or Plasm a potassium [moles/volum e] in serum or plasma 3.8 mmol/ L low: 3.5mmo l/Lhig h: 4.5mmo l/L Potas sium 3.8 3.5 - 4.5 mmol/ L 12/13 4:23 AM T [email or web address] [email or web address] [facility] Not Available Not Available 12/16/2024 16:47:01 12/14/19 25 12/13/2024 Renal funct ion 1999 panel - Serum or Plasm a chloride [moles/volum e] in serum or plasma 109 mmol/ L low: 98mmol /Lhigh : 107mmo l/L high Chlor lobo 109 (H) 98 - 107 mmol/ L 12/13 4:23 AM T [email or web address] [email or web address] [facility] Not Available Not Available 12/16/2024 16:47:01 12/14/19 25 12/13/2024 Renal funct ion 1999 panel - Serum or Plasm a carbon dioxide, total [moles/volum e] in serum or plasma 23 mmol/ L low: 22mmol /Lhigh : 29mmol /L CO2 23 22 - 29 mmol/ L 12/13 4:23 AM [facility] [email or web address] [facility] Not Available Not Available 12/16/2024 16:47:01 12/14/19 25 12/13/2024 Renal funct ion 1999 panel - Serum or Plasm a glucose [mass/volume ] in serum or plasma 105 mg/dL low: 70mg/d Lhigh: 99mg/d L high Gluco se 105 (H) 70 - 99 mg/dL 12/13 4:23 AM T [email or web address] [email or web address] [facility] Not Available Not Available 12/16/2024 16:47:01 12/14/19 25 12/13/2024 Renal funct ion 1999 panel - Serum or Plasm a albumin [mass/volume ] in serum or plasma by bromocresol green (bcg) dye binding method 3 g/dL low: 3.4g/d Lhigh: 5g/dL low Album in 3.0 (L) 3.4 - 5.0 g/dL 12/13 4:23 AM CDT [email or web address] [email or web address] [facility] Not Available Not Available 12/16/2024 16:47:01 12/14/19 25 12/13/2024 Renal funct ion 1999 panel - Serum or Plasm a calcium [moles/volum e] in serum or plasma 8.7 mg/dL low: 8.4mg/ dLhigh : 10.2mg /dL Calci um 8.7 8.4 - 10.2 mg/dL 12/13 4:23 AM CDT [employer] [facility] Not Available Not Available 12/16/2024 16:47:01 12/14/19 25 12/13/2024 Renal funct ion 1999 panel - Serum or Plasm a phosphate [mass/volume ] in serum or plasma 4.4 mg/dL low: 2.9mg/ dLhigh : 5.1mg/ dL Phosp horus 4.4 2.9 - 5.1 mg/dL 12/13 4:23 AM CDT [facility] [email or web address] [facility] Not Available Not Available 12/16/2024 16:47:01 12/14/19 25 12/13/2024 Renal funct ion 1999 panel - Serum or Plasm a anion gap 8 low: 6high: 16 Anion Gap 8 6 - 16 12/13 4:23 AM CDT [email or web address] [facility] Not Available Not Available 12/16/2024 16:47:01 12/14/19 25 12/13/2024 Renal funct ion 1999 panel - Serum or Plasm a urea nitrogen/cre atinine [mass ratio] in serum or plasma 8 low: 7high: 23 BUN/C reati nine Ratio 8 7 - 23 12/13 4:23 AM CDT [facility] [employer] [facility] Not Available Not Available 12/16/2024 16:47:01 12/14/19 25 12/13/2024 Renal funct ion 1999 panel - Serum or Plasm a osmolality calculated 289 text: 275 - 295 mOsm/k g Osmol sowmya Vargas lated 289 275 - 295 mOsm/ kg 12/13 4:23 AM [facility] [employer] [facility] Not Available Not Available 12/16/2024 16:47:01 12/14/19 25 12/13/2024 Renal funct ion 1999 panel - Serum or Plasm a glomerular filtration rate [volume rate/area] in serum, plasma or blood by creatinine-b ased formula (CKD-epi 2020)/1.73 sq M 67 text: >=90 mL/min /1.73 m2 low eGFR by CKD-E PI 67 (L) >=90 mL/mi n/1.7 3 m2 12/13 4:23 AM [facility] [email or web address] [facility] Not Available Not Available 12/16/2024 16:47:01 12/14/19 25 12/13/2024 Renal funct ion 1999 panel - Serum or Plasm a interpretati on and review of laboratory results Abnorm al Not Available Not Available 16:47:01 12/14/19 25 12/13/2024 Magne sium [Mass /volu me] in Serum or Plasm a magnesium [mass/volume ] in serum or plasma 2.2 mg/dL low: 1.6mg/ dLhigh : 2.6mg/ dL Magne sium 2.2 1.6 - 2.6 mg/dL 12/13 4:23 AM [facility] [email or web address] [facility]ENTERMatsSoftI SMITA Not Available Not Available 12/16/2024 16:47:01 12/14/19 25 12/13/2024 Magne sium [Mass /volu me] in Serum or Plasm a interpretati on and review of laboratory results Normal Not Available Not Available 09/2024 16:47:01 12/15/19 25 12/14/2024 CBC panel - Blood by Autom ated count leukocytes [#/volume] in blood by automated count 11.1 text: 4.0 - 10.7 x10e9/ L high WBC 11.1 (H) 4.0 - 10.7 x10E9 /L 12/14 4:05 AM [facility] SMITA Not Available Not Available 12/16/2024 16:47:01 12/15/19 25 12/14/2024 CBC panel - Blood by Autom ated count erythrocytes [#/volume] in blood by automated count 4.53 text: 3.90 - 5.20 x10e12 /L RBC Count 4.53 3.90 - 5.20 x10E1 2/L 12/14 4:05 AM [facility] SMITA Not Available Not Available 12/16/2024 16:47:01 12/15/19 25 12/14/2024 CBC panel - Blood by Autom ated count hemoglobin [mass/volume ] in blood 13 g/dL low: 11.9g/ dLhigh : 15.8g/ dL Hemog lobin 13.0 11.9 - 15.8 g/dL 12/14 4:05 AM [facility] SMITA Not Available Not Available 12/16/2024 16:47:01 12/15/1912/14/2024 CBC panel - Blood by Autom ated count hematocrit [volume fraction] of blood by automated count 39.9 % low: 34.8%h igh: 46.1% Hemat ocrit 39.9 34.8 - 46.1 % 12/14 4:05 AM [facility] SMITA Not Available Not Available 12/16/2024 16:47:01 12/15/19 25 12/14/2024 CBC panel - Blood by Autom ated count MCV [entitic mean volume] in red blood cells by automated count 88.1 fL low: 80fLhi gh: 98fL MCV 88.1 80.0 - 98.0 fL 12/14 4:05 AM [facility] Not Available Not Available 12/16/2024 16:47:01 12/15/19 25 12/14/2024 CBC panel - Blood by Autom ated count MCH [entitic mass] by automated count 28.7 pg low: 26.7pg high: 33.6pg MCH 28.7 26.7 - 33.6 pg 12/14 4:05 AM CDT [facility] SMITA Not Available Not Available 12/16/2024 16:47:01 12/15/19 25 12/14/2024 CBC panel - Blood by Autom ated count MCHC [entitic mass/volume] in red blood cells by automated count 32.6 g/dL low: 31.7g/ dLhigh : 36.3g/ dL MCHC 32.6 31.7 - 36.3 g/dL 12/14 4:05 AM [facility] SM[facility] Not Available Not Available 12/16/2024 16:47:01 12/15/19 25 12/14/2024 CBC panel - Blood by Autom ated count erythrocyte [distwidth] in red blood cells by automated count 13.9 % low: 11.3%h igh: 14.8% RDW-C V 13.9 11.3 - 14.8 % 12/14 4:05 AM [facility] SM[facility] Not Available Not Available 12/16/2024 16:47:01 12/15/19 25 12/14/2024 CBC panel - Blood by Autom ated count platelets [#/volume] in blood by automated count 254 text: 150 - 420 x10e9/ L Plate let Count 254 150 - 420 x10E9 /L 12/14 4:05 AM [facility] SMITA Not Available Not Available 12/16/2024 16:47:01 12/15/19 25 12/14/2024 CBC panel - Blood by Autom ated count platelet [entitic mean volume] in blood by automated count 10.5 fL low: 7.8fLh igh: 11.4fL MPV 10.5 7.8 - 11.4 fL 12/14 4:05 AM [facility] SM[facility] Not Available Not Available 12/16/2024 16:47:01 12/15/19 25 12/14/2024 CBC panel - Blood by Autom ated count interpretati on and review of laboratory results Abnorm al Not Available Not Available 16:47:01 12/15/19 25 12/14/2024 Renal funct ion 2000 panel - Serum or Plasm a urea nitrogen [mass/volume ] in serum or plasma 7 mg/dL low: 7mg/dL high: 26mg/d L BUN 7 7 - 26 mg/dL 12/14 4:25 AM CDT [employer] [facility] SMITA Not Available Not Available 12/16/2024 16:47:01 12/15/19 25 12/14/2024 Renal funct ion 1999 panel - Serum or Plasm a creatinine [mass/volume ] in serum or plasma 1.04 mg/dL low: 0.56mg /dLhig h: 0.96mg /dL high Creat inine 1.04 (H) 0.56 - 0.96 mg/dL 12/14 4:25 AM CDT [facility] [employer] [facility] SMITA Not Available Not Available 12/16/2024 16:47:01 12/15/19 25 12/14/2024 Renal funct ion 1999 panel - Serum or Plasm a sodium [moles/volum e] in serum or plasma 139 mmol/ L low: 136mmo l/Lhig h: 145mmo l/L Sodiu m 139 136 - 145 mmol/ L 12/14 4:25 AM CDT [facility] [employer] [facility] SMITA Not Available Not Available 12/16/2024 16:47:01 12/15/19 25 12/14/2024 Renal funct ion 1999 panel - Serum or Plasm a potassium [moles/volum e] in serum or plasma 3.8 mmol/ L low: 3.5mmo l/Lhig h: 4.5mmo l/L Potas sium 3.8 3.5 - 4.5 mmol/ L 12/14 4:25 AM CDT [employer] [facility] SMITA Not Available Not Available 12/16/2024 16:47:01 12/15/19 25 12/14/2024 Renal funct ion 1999 panel - Serum or Plasm a chloride [moles/volum e] in serum or plasma 111 mmol/ L low: 98mmol /Lhigh : 107mmo l/L high Chlor lobo 111 (H) 98 - 107 mmol/ L 12/14 4:25 AM CDT [employer] [facility] SMITA Not Available Not Available 12/16/2024 16:47:01 12/15/19 25 12/14/2024 Renal funct ion 1999 panel - Serum or Plasm a carbon dioxide, total [moles/volum e] in serum or plasma 19 mmol/ L low: 22mmol /Lhigh : 29mmol /L low CO2 19 (L) 22 - 29 mmol/ L 12/14 4:25 AM CDT [facility] [email or web address] [facility] SMITA Not Available Not Available 12/16/2024 16:47:01 12/15/19 25 12/14/2024 Renal funct ion 1999 panel - Serum or Plasm a glucose [mass/volume ] in serum or plasma 88 mg/dL low: 70mg/d Lhigh: 99mg/d L Gluco se 88 70 - 99 mg/dL 12/14 4:25 AM CDT [facility] [employer] [facility] SMITA Not Available Not Available 12/16/2024 16:47:01 12/15/19 25 12/14/2024 Renal funct ion 1999 panel - Serum or Plasm a albumin [mass/volume ] in serum or plasma by bromocresol green (bcg) dye binding method 3.1 g/dL low: 3.4g/d Lhigh: 5g/dL low Album in 3.1 (L) 3.4 - 5.0 g/dL 12/14 4:25 AM [facility] [employer] SMITA Not Available Not Available 12/16/2024 16:47:01 12/15/19 25 12/14/2024 Renal funct ion 1999 panel - Serum or Plasm a calcium [moles/volum e] in serum or plasma 8.6 mg/dL low: 8.4mg/ dLhigh : 10.2mg /dL Calci um 8.6 8.4 - 10.2 mg/dL 12/14 4:25 AM T [facility] [employer] [facility] SMITA Not Available Not Available 12/16/2024 16:47:01 12/15/19 25 12/14/2024 Renal funct ion 1999 panel - Serum or Plasm a phosphate [mass/volume ] in serum or plasma 4.1 mg/dL low: 2.9mg/ dLhigh : 5.1mg/ dL Phosp horus 4.1 2.9 - 5.1 mg/dL 12/14 4:25 AM CDT [facility] SMITA Not Available Not Available 12/16/2024 16:47:01 12/15/19 25 12/14/2024 Renal funct ion 1999 panel - Serum or Plasm a anion gap 9 low: 6high: 16 Anion Gap 9 6 - 16 12/14 4:[address] [facility] SMITA Not Available Not Available 12/16/2024 16:47:01 12/15/19 25 12/14/2024 Renal funct ion 2000 panel - Serum or Plasm a urea nitrogen/cre atinine [mass ratio] in serum or plasma 7 low: 7high: 23 BUN/C reati nine Ratio 7 7 - 23 12/14 4:25 AM CDT [facility] SMITA Not Available Not Available 12/16/2024 16:47:01 12/15/19 25 12/14/2024 Renal funct ion 2000 panel - Serum or Plasm a osmolality calculated 285 text: 275 - 295 mOsm/k g Osmol ality Calcu lated 285 275 - 295 mOsm/ kg 12/14 4:25 AM CDT [facility] SMITA Not Available Not Available 12/16/2024 16:47:01 12/15/19 25 12/14/2024 Renal funct ion 2000 panel - Serum or Plasm a glomerular filtration rate [volume rate/area] in serum, plasma or blood by creatinine-b ased formula (CKD-epi 2020)/1.73 sq M 73 text: >=90 mL/min /1.73 m2 low eGFR by CKD-E PI 73 (L) >=90 mL/mi n/1.7 3 m2 12/14 4:25 AM CDT [facility] SMITA Not Available Not Available 12/16/2024 16:47:01 12/15/19 25 12/14/2024 Renal funct ion 2000 panel - Serum or Plasm a interpretati on and review of laboratory results Abnorm al Not Available Not Available 16:47:01 12/15/19 25 12/14/2024 Magne sium [Mass /volu me] in Serum or Plasm a magnesium [mass/volume ] in serum or plasma 2.1 mg/dL low: 1.6mg/ dLhigh : 2.6mg/ dL Magne sium 2.1 1.6 - 2.6 mg/dL 12/14 4:[address] [facility] SMITA Not Available Not Available 12/16/2024 16:47:01 12/15/19 25 12/14/2024 Magne sium [Mass /volu me] in Serum or Plasm a interpretati on and review of laboratory results Normal Not Available Not Available 09/2024 16:47:01 12/16/19 25 12/17/2024 Bacte adriel ident ified in Urine by Cultu re bacteria identified in urine by culture 10,000 -50,00 0 CFU/mL urogen ital jose cruz Cultu re Urine 10,00 0-50, 000 CFU/m L uroge nital jose cruz PRESLEY 12/17 6:30 AM CDT [facility] [employer] G[facility] Not Available Not Available 12/18/2024 06:47:50 12/16/1912/15/2024 Urina lysis panel - Urine by Autom ated color of urine by auto Yellow text: yellow , straw Color UA Yello w Yello w, Straw 12/15 6:[address] [facility] SMITA Not Available Not Available 12/16/2024 16:37:01 12/16/19 25 12/15/2024 Urina lysis panel - Urine by Autom ated clarity in urine by refractometr y automated Clear text: clear Charlee ty UA Clear Clear 12/15 6:47 PM [facility] SMITA Not Available Not Available 12/16/2024 16:37:01 12/16/19 25 12/15/2024 Urina lysis panel - Urine by Autom ated glucose [presence] in urine by test strip Normal text: normal Gluco se UA Charleen l Charleen l 12/15 6:47 PM [facility] SMITA Not Available Not Available 12/16/2024 16:37:01 12/16/19 25 12/15/2024 Urina lysis panel - Urine by Autom ated bilirubin.to smita [presence] in urine by test strip Negati ve text: negati ve Bilir ubin UA Negat jeffy Negat jeffy 12/15 6:47 PM CDT [facility] SMITA Not Available Not Available 12/16/2024 16:37:01 12/16/19 25 12/15/2024 Urina lysis panel - Urine by Autom ated ketones [presence] in urine by automated test strip Negati ve text: negati ve Keton e UA Negat jeffy Negat jeffy 12/15 6:47 PM CDT [facility] SMITA Not Available Not Available 12/16/2024 16:37:01 12/16/19 25 12/15/2024 Urina lysis panel - Urine by Autom ated specific gravity of urine by test strip 1.013 low: 1.005h igh: 1.03 Speci fic Gravi ty UA 1.013 1.005 - 1.030 12/15 6:47 PM CDT [facility] SMITA Not Available Not Available 12/16/2024 16:37:01 12/16/19 25 12/15/2024 Urina lysis panel - Urine by Autom ated hemoglobin [presence] in urine by test strip Negati ve text: negati ve Blood UA Negat jeffy Negat jeffy 12/15 6:47 PM CDT [facility] SMITA Not Available Not Available 12/16/2024 16:37:01 12/16/19 25 12/15/2024 Urina lysis panel - Urine by Autom ated pH of urine by test strip 7 pH low: 5pHhig h: 9pH pH UA 7.0 5.0 - 9.0 pH 12/15 6:47 PM CDT [facility] SMITA Not Available Not Available 12/16/2024 16:37:01 12/16/19 25 12/15/2024 Urina lysis panel - Urine by Autom ated protein [presence] in urine by test strip Negati ve text: negati ve Prote in UA Negat jeffy Negat jeffy 12/15 6:47 PM CDT [facility] SMITA Not Available Not Available 12/16/2024 16:37:01 12/16/19 25 12/15/2024 Urina lysis panel - Urine by Autom ated urobilinogen [mass/volume ] in urine by automated test strip Normal text: normal mg/dL Urobi linog en UA Charleen l Charleen l mg/dL 12/15 6:47 PM [facility] SMITA Not Available Not Available 12/16/2024 16:37:01 12/16/19 25 12/15/2024 Urina lysis panel - Urine by Autom ated nitrite [presence] in urine by test strip Negati ve text: negati ve Nitri te UA Negat jeffy Negat jeffy 12/15 6:47 PM CDT [facility] SMITA Not Available Not Available 12/16/2024 16:37:01 12/16/1912/15/2024 Urina lysis panel - Urine by Autom ated leukocyte esterase [presence] in urine by test strip 75 GUANAKO/uL text: negati ve abnormal Leuko cyte UA 75 GUANAKO/u L (A) Negat jeffy 12/15 6:47 PM [facility] SM[facility] Not Available Not Available 12/16/2024 16:37:01 12/16/19 25 12/15/2024 Urina lysis panel - Urine by Autom ated erythrocytes [#/area] in urine sediment by automated count 3-5 text: 0 - 5 # /hpf RBC UA 3-5 0 - 5 # /hpf 12/15 6:47 PM [facility] Not Available Not Available 12/16/2024 16:37:01 12/16/19 25 12/15/2024 Urina lysis panel - Urine by Autom ated leukocytes [#/area] in urine sediment by automated count 0-5 text: 0 - 5 # /hpf WBC UA 0-5 0 - 5 # /hpf 12/15 6:47 PM [facility] SM[facility] Not Available Not Available 12/16/2024 16:37:01 12/16/19 25 12/15/2024 Urina lysis panel - Urine by Autom ated bacteria [presence] in urine by automated None Seen text: none seen Bacte adriel UA None Seen None Seen 12/15 6:47 PM CDT [facility] SMITA Not Available Not Available 12/16/2024 16:37:01 12/16/19 25 12/15/2024 Urina lysis panel - Urine by Autom ated epithelial cells.squamo us [presence] in urine by automated 6-10 text: 0 - 5 /hpf Squam ous Epith elial Cells 6-10 0 - 5 /hpf 12/15 6:[address] [facility] SMITA Not Available Not Available 12/16/2024 16:37:01 12/16/19 25 12/15/2024 Urina lysis panel - Urine by Autom ated interpretati on and review of laboratory results Abnorm al Not Available Not Available 16:37:01 12/16/19 25 12/15/2024 Renal funct ion 1999 panel - Serum or Plasm a urea nitrogen [mass/volume ] in serum or plasma 11 mg/dL low: 7mg/dL high: 26mg/d L BUN 11 7 - 26 mg/dL 12/15 6:28 AM [facility] SMITA Not Available Not Available 12/16/2024 16:47:01 12/16/19 25 12/15/2024 Renal funct ion 1999 panel - Serum or Plasm a creatinine [mass/volume ] in serum or plasma 1.19 mg/dL low: 0.56mg /dLhig h: 0.96mg /dL high Creat inine 1.19 (H) 0.56 - 0.96 mg/dL 12/15 6:28 AM [facility] [email or web address] ATORY [facility] SMITA Not Available Not Available 12/16/2024 16:47:01 12/16/19 25 12/15/2024 Renal funct ion 1999 panel - Serum or Plasm a sodium [moles/volum e] in serum or plasma 140 mmol/ L low: 136mmo l/Lhig h: 145mmo l/L Sodiu m 140 136 - 145 mmol/ L 12/15 6:28 AM [facility] [email or web address] ATORY [facility] SMITA Not Available Not Available 12/16/2024 16:47:01 12/16/19 25 12/15/2024 Renal funct ion 1999 panel - Serum or Plasm a potassium [moles/volum e] in serum or plasma 3.5 mmol/ L low: 3.5mmo l/Lhig h: 4.5mmo l/L Potas sium 3.5 3.5 - 4.5 mmol/ L 12/15 6:28 AM [facility] SMITA Not Available Not Available 12/16/2024 16:47:01 12/16/19 25 12/15/2024 Renal funct ion 1999 panel - Serum or Plasm a chloride [moles/volum e] in serum or plasma 110 mmol/ L low: 98mmol /Lhigh : 107mmo l/L high Chlor lobo 110 (H) 98 - 107 mmol/ L 12/15 6:28 AM [facility] SM[facility] Not Available Not Available 12/16/2024 16:47:01 12/16/19 25 12/15/2024 Renal funct ion 1999 panel - Serum or Plasm a carbon dioxide, total [moles/volum e] in serum or plasma 22 mmol/ L low: 22mmol /Lhigh : 29mmol /L CO2 22 22 - 29 mmol/ L 12/15 6:28 AM [facility] Not Available Not Available 12/16/2024 16:47:01 12/16/19 25 12/15/2024 Renal funct ion 1999 panel - Serum or Plasm a glucose [mass/volume ] in serum or plasma 82 mg/dL low: 70mg/d Lhigh: 99mg/d L Gluco se 82 70 - 99 mg/dL 12/15 6:28 AM [facility] Not Available Not Available 12/16/2024 16:47:01 12/16/19 25 12/15/2024 Renal funct ion 1999 panel - Serum or Plasm a albumin [mass/volume ] in serum or plasma by bromocresol green (bcg) dye binding method 3.2 g/dL low: 3.4g/d Lhigh: 5g/dL low Album in 3.2 (L) 3.4 - 5.0 g/dL 12/15 6:28 AM [facility] Not Available Not Available 12/16/2024 16:47:12/16/1912/15/2024 Renal funct ion 1999 panel - Serum or Plasm a calcium [moles/volum e] in serum or plasma 8.8 mg/dL low: 8.4mg/ dLhigh : 10.2mg /dL Calci um 8.8 8.4 - 10.2 mg/dL 12/15 6:28 AM CDT [facility] [email or web address] ATORY [facility] SMITA Not Available Not Available 12/16/2024 16:47:01 12/16/19 25 12/15/2024 Renal funct ion 1999 panel - Serum or Plasm a phosphate [mass/volume ] in serum or plasma 4.9 mg/dL low: 2.9mg/ dLhigh : 5.1mg/ dL Phosp horus 4.9 2.9 - 5.1 mg/dL 12/15 6:28 AM [facility] [email or web address] ATORY [facility] SMITA Not Available Not Available 12/16/2024 16:47:01 12/16/19 25 12/15/2024 Renal funct ion 1999 panel - Serum or Plasm a anion gap 8 low: 6high: 16 Anion Gap 8 6 - 16 12/15 6:28 AM [facility] [email or web address] AT[facility] SMITA Not Available Not Available 12/16/2024 16:47:01 12/16/19 25 12/15/2024 Renal funct ion 1999 panel - Serum or Plasm a urea nitrogen/cre atinine [mass ratio] in serum or plasma 9 low: 7high: 23 BUN/C reati nine Ratio 9 7 - 23 12/15 6:28 AM [facility] [email or web address] [facility] SMITA Not Available Not Available 12/16/2024 16:47:01 12/16/19 25 12/15/2024 Renal funct ion 1999 panel - Serum or Plasm a osmolality calculated 288 text: 275 - 295 mOsm/k g Osmol ality Calcu lated 288 275 - 295 mOsm/ kg 12/15 6:28 AM [facility] [email or web address] AT[facility] SMITA Not Available Not Available 12/16/2024 16:47:01 12/16/19 25 12/15/2024 Renal funct ion 1999 panel - Serum or Plasm a glomerular filtration rate [volume rate/area] in serum, plasma or blood by creatinine-b ased formula (CKD-epi 2020)/1.73 sq M 62 text: >=90 mL/min /1.73 m2 low eGFR by CKD-E PI 62 (L) >=90 mL/mi n/1.7 3 m2 12/15 6:28 AM CDT [employer] [facility] SMITA Not Available Not Available 12/16/2024 16:47:01 12/16/19 25 12/15/2024 Renal funct ion 2000 panel - Serum or Plasm a interpretati on and review of laboratory results Abnorm al Not Available Not Available 16:47:01 12/16/19 25 12/15/2024 Magne sium [Mass /volu me] in Serum or Plasm a magnesium [mass/volume ] in serum or plasma 2.2 mg/dL low: 1.6mg/ dLhigh : 2.6mg/ dL Magne sium 2.2 1.6 - 2.6 mg/dL 12/15 6:28 AM CDT [employer] [facility] SMITA Not Available Not Available 12/16/2024 16:47:01 12/16/19 25 12/15/2024 Magne sium [Mass /volu me] in Serum or Plasm a interpretati on and review of laboratory results Normal Not Available Not Available 09/2024 16:47:01 12/16/19 25 12/15/2024 CBC panel - Blood by Autom ated count leukocytes [#/volume] in blood by automated count 11.4 text: 4.0 - 10.7 x10e9/ L high WBC 11.4 (H) 4.0 - 10.7 x10E9 /L 12/15 6:04 AM [employer] SMITA Not Available Not Available 12/16/2024 16:37:00 12/16/19 25 12/15/2024 CBC panel - Blood by Autom ated count erythrocytes [#/volume] in blood by automated count 4.37 text: 3.90 - 5.20 x10e12 /L RBC Count 4.37 3.90 - 5.20 x10E1 2/L 12/15 6:04 AM [employer] SMITA Not Available Not Available 12/16/2024 16:37:00 12/16/19 25 12/15/2024 CBC panel - Blood by Autom ated count hemoglobin [mass/volume ] in blood 12.5 g/dL low: 11.9g/ dLhigh : 15.8g/ dL Hemog lobin 12.5 11.9 - 15.8 g/dL 12/15 6:04 AM [facility] Not Available Not Available 12/16/2024 16:37:00 12/16/1912/15/2024 CBC panel - Blood by Autom ated count hematocrit [volume fraction] of blood by automated count 38.7 % low: 34.8%h igh: 46.1% Hemat ocrit 38.7 34.8 - 46.1 % 12/15 6:04 AM [facility] Not Available Not Available 12/16/2024 16:37:00 12/16/1912/15/2024 CBC panel - Blood by Autom ated count MCV [entitic mean volume] in red blood cells by automated count 88.6 fL low: 80fLhi gh: 98fL MCV 88.6 80.0 - 98.0 fL 12/15 6:04 AM [facility] [email or web address] [facility] Not Available Not Available 12/16/2024 16:37:00 12/16/19 25 12/15/2024 CBC panel - Blood by Autom ated count MCH [entitic mass] by automated count 28.6 pg low: 26.7pg high: 33.6pg MCH 28.6 26.7 - 33.6 pg 12/15 6:04 AM [facility] [email or web address] [facility] Not Available Not Available 12/16/2024 16:37:00 12/16/1912/15/2024 CBC panel - Blood by Autom ated count MCHC [entitic mass/volume] in red blood cells by automated count 32.3 g/dL low: 31.7g/ dLhigh : 36.3g/ dL MCHC 32.3 31.7 - 36.3 g/dL 12/15 6:04 AM [facility] Not Available Not Available 12/16/2024 16:37:00 12/16/19 25 12/15/2024 CBC panel - Blood by Autom ated count erythrocyte [distwidth] in red blood cells by automated count 13.9 % low: 11.3%h igh: 14.8% RDW-C V 13.9 11.3 - 14.8 % 12/15 6:04 AM [facility] SMITA Not Available Not Available 12/16/2024 16:37:00 12/16/19 25 12/15/2024 CBC panel - Blood by Autom ated count platelets [#/volume] in blood by automated count 253 text: 150 - 420 x10e9/ L Plate let Count 253 150 - 420 x10E9 /L 12/15 6:04 AM [facility] SMITA Not Available Not Available 12/16/2024 16:37:00 12/16/19 25 12/15/2024 CBC panel - Blood by Autom ated count platelet [entitic mean volume] in blood by automated count 10.7 fL low: 7.8fLh igh: 11.4fL MPV 10.7 7.8 - 11.4 fL 12/15 6:04 AM [facility] SMITA Not Available Not Available 12/16/2024 16:37:00 12/16/1912/15/2024 CBC panel - Blood by Autom ated count interpretati on and review of laboratory results Abnorm al Not Available Not Available 16:37:00 12/17/19 25 12/16/2024 ABO and Rh group [Type ] in Blood ABO and Rh group [type] in blood A POS ABO Rh A POS 12/16 6:00 AM [facility] Not Available Not Available 12/16/2024 16:37:01 12/17/19 25 12/16/2024 Blood type and Indir ect antib maribel scree n panel - Blood blood group antibody screen [presence] in serum or plasma NEG Antib maribel Scree n NEG 12/16 5:21 AM [facility] Not Available Not Available 12/16/2024 16:37:00 12/17/19 12/16/2024 Blood type and Indir ect antib maribel scree n panel - Blood ABO and Rh group [type] in blood A POS ABO Rh A POS 12/16 5:21 AM T [facility] Not Available Not Available 12/16/2024 16:37:00 12/17/19 25 12/16/2024 CBC W Auto Diffe renti al panel - Blood leukocytes [#/volume] in blood by automated count 10.4 text: 4.0 - 10.7 x10e9/ L WBC 10.4 4.0 - 10.7 x10E9 /L 12/16 4:48 AM CDT [facility] Not Available Not Available 12/16/2024 16:37:00 12/17/19 25 12/16/2024 CBC W Auto Diffe renti al panel - Blood erythrocytes [#/volume] in blood by automated count 4.54 text: 3.90 - 5.20 x10e12 /L RBC Count 4.54 3.90 - 5.20 x10E1 2/L 12/16 4:48 AM T [facility] Not Available Not Available 12/16/2024 16:37:00 12/17/19 25 12/16/2024 CBC W Auto Diffe renti al panel - Blood hemoglobin [mass/volume ] in blood 12.9 g/dL low: 11.9g/ dLhigh : 15.8g/ dL Hemog lobin 12.9 11.9 - 15.8 g/dL 12/16 4:48 AM T [facility] Not Available Not Available 12/16/2024 16:37:00 12/17/19 25 12/16/2024 CBC W Auto Diffe renti al panel - Blood hematocrit [volume fraction] of blood by automated count 40.6 % low: 34.8%h igh: 46.1% Hemat ocrit 40.6 34.8 - 46.1 % 12/16 4:48 AM CDT [facility] Not Available Not Available 12/16/2024 16:37:00 12/17/19 25 12/16/2024 CBC W Auto Diffe renti al panel - Blood MCV [entitic mean volume] in red blood cells by automated count 89.4 fL low: 80fLhi gh: 98fL MCV 89.4 80.0 - 98.0 fL 12/16 4:48 AM [facility] Not Available Not Available 12/16/2024 16:37:00 12/17/19 25 12/16/2024 CBC W Auto Diffe margaretti al panel - Blood MCH [entitic mass] by automated count 28.4 pg low: 26.7pg high: 33.6pg MCH 28.4 26.7 - 33.6 pg 12/16 4:48 AM T [facility] Not Available Not Available 12/16/2024 16:37:00 12/17/1912/16/2024 CBC W Auto Diffe margaretti al panel - Blood MCHC [entitic mass/volume] in red blood cells by automated count 31.8 g/dL low: 31.7g/ dLhigh : 36.3g/ dL MCHC 31.8 31.7 - 36.3 g/dL 12/16 4:48 AM [facility] Not Available Not Available 12/16/2024 16:37:00 12/17/1912/16/2024 CBC W Auto Diffe isaura al panel - Blood erythrocyte [distwidth] in red blood cells by automated count 14 % low: 11.3%h igh: 14.8% RDW-C V 14.0 11.3 - 14.8 % 12/16 4:48 AM [facility] Not Available Not Available 12/16/2024 16:37:00 12/17/1912/16/2024 CBC W Auto Diffe margaretti al panel - Blood platelets [#/volume] in blood by automated count 244 text: 150 - 420 x10e9/ L Plate let Count 244 150 - 420 x10E9 /L 12/16 4:48 AM [facility] Not Available Not Available 12/16/2024 16:37:00 12/17/19 25 12/16/2024 CBC W Auto Diffe renti al panel - Blood platelet [entitic mean volume] in blood by automated count 10.5 fL low: 7.8fLh igh: 11.4fL MPV 10.5 7.8 - 11.4 fL 12/16 4:48 AM CDT [facility] Not Available Not Available 12/16/2024 16:37:00 12/17/19 25 12/16/2024 CBC W Auto Diffe renti al panel - Blood neutrophils/ leukocytes in blood by automated count 61.1 % low: 41%hig h: 74% Neutr ophil % 61.1 41.0 - 74.0 % 12/16 4:48 AM CDT [facility] Not Available Not Available 12/16/2024 16:37:00 12/17/1912/16/2024 CBC W Auto Diffe renti al panel - Blood lymphocytes/ leukocytes in blood by automated count 29.4 % low: 17%hig h: 47% Lymph ocyte % 29.4 17.0 - 47.0 % 12/16 4:48 AM T [facility] Not Available Not Available 12/16/2024 16:37:00 12/17/19 25 12/16/2024 CBC W Auto Diffe renti al panel - Blood monocytes/le ukocytes in blood by automated count 6.1 % low: 3%high : 11% Monoc yte % 6.1 3.0 - 11.0 % 12/16 4:48 AM [facility] Not Available Not Available 12/16/2024 16:37:00 12/17/19 25 12/16/2024 CBC W Auto Diffe renti al panel - Blood eosinophils/ leukocytes in blood by automated count 2.7 % low: 0%high : 7% Eosin ophil % 2.7 0.0 - 7.0 % 12/16 4:48 AM CDT [facility] Not Available Not Available 12/16/2024 16:37:00 12/17/19 25 12/16/2024 CBC W Auto Diffe renti al panel - Blood basophils/le ukocytes in blood by automated count 0.3 % low: 0%high : 1.6% Basop hil % 0.3 0.0 - 1.6 % 12/16 4:48 AM CDT [facility] Not Available Not Available 12/16/2024 16:37:00 12/17/19 25 12/16/2024 CBC W Auto Diffe renti al panel - Blood immature granulocytes /leukocytes in blood by automated count 0.4 % low: 0%high : 1% Immat ure Granu locyt es % 0.4 0.0 - 1.0 % 12/16 4:48 AM CDT [facility] Not Available Not Available 12/16/2024 16:37:00 12/17/19 25 12/16/2024 CBC W Auto Diffe renti al panel - Blood neutrophils [#/volume] in blood by automated count 6.38 text: 1.60 - 7.50 x10e9/ L Neutr ophil Absol red devil 6.38 1.60 - 7.50 x10E9 /L 12/16 4:48 AM CDT [facility] Not Available Not Available 12/16/2024 16:37:00 12/17/19 25 12/16/2024 CBC W Auto Diffe renti al panel - Blood lymphocytes [#/volume] in blood by automated count 3.07 text: 1.00 - 4.40 x10e9/ L Lymph ocyte Absol red devil 3.07 1.00 - 4.40 x10E9 /L 12/16 4:48 AM CDT [facility] Not Available Not Available 12/16/2024 16:37:00 12/17/19 25 12/16/2024 CBC W Auto Diffe renti al panel - Blood monocytes [#/volume] in blood by automated count 0.64 text: 0.15 - 1.00 x10e9/ L Monoc yte Absol red devil 0.64 0.15 - 1.00 x10E9 /L 12/16 4:48 AM CDT [facility] Not Available Not Available 12/16/2024 16:37:00 12/17/19 25 12/16/2024 CBC W Auto Diffe renti al panel - Blood eosinophils [#/volume] in blood 0.28 text: 0.00 - 0.60 x10e9/ L Eosin ophil Absol red devil 0.28 0.00 - 0.60 x10E9 /L 12/16 4:48 AM [facility] [email or web address] [facility] Not Available Not Available 12/16/2024 16:37:00 12/17/19 25 12/16/2024 CBC W Auto Diffe renti al panel - Blood basophils [#/volume] in blood by automated count 0.03 text: 0.00 - 0.13 x10e9/ L Basop hil Absol red devil 0.03 0.00 - 0.13 x10E9 /L 12/16 4:48 AM [facility] [email or web address] [facility] Not Available Not Available 12/16/2024 16:37:00 12/17/1912/16/2024 CBC W Auto Diffe renti al panel - Blood interpretati on and review of laboratory results Normal Not Available Not Available 09/2024 16:37:00 12/17/19 25 12/16/2024 Renal funct ion 1999 panel - Serum or Plasm a urea nitrogen [mass/volume ] in serum or plasma 12 mg/dL low: 7mg/dL high: 26mg/d L BUN 12 7 - 26 mg/dL 12/16 5:07 AM [facility] [email or web address] [facility] Not Available Not Available 12/16/2024 16:37:00 12/17/19 25 12/16/2024 Renal funct ion 1999 panel - Serum or Plasm a creatinine [mass/volume ] in serum or plasma 1.19 mg/dL low: 0.56mg /dLhig h: 0.96mg /dL high Creat inine 1.19 (H) 0.56 - 0.96 mg/dL 12/16 5:07 AM [facility] [email or web address] [facility] Not Available Not Available 12/16/2024 16:37:00 12/17/19 25 12/16/2024 Renal funct ion 1999 panel - Serum or Plasm a sodium [moles/volum e] in serum or plasma 139 mmol/ L low: 136mmo l/Lhig h: 145mmo l/L Sodiu m 139 136 - 145 mmol/ L 12/16 5:07 AM [facility] Not Available Not Available 12/16/2024 16:37:00 12/17/1912/16/2024 Renal funct ion 1999 panel - Serum or Plasm a potassium [moles/volum e] in serum or plasma 4 mmol/ L low: 3.5mmo l/Lhig h: 4.5mmo l/L Potas sium 4.0 3.5 - 4.5 mmol/ L 12/16 5:07 AM [facility] Not Available Not Available 12/16/2024 16:37:00 12/17/1912/16/2024 Renal funct ion 1999 panel - Serum or Plasm a chloride [moles/volum e] in serum or plasma 109 mmol/ L low: 98mmol /Lhigh : 107mmo l/L high Chlor lobo 109 (H) 98 - 107 mmol/ L 12/16 5:07 AM [facility] Not Available Not Available 12/16/2024 16:37:00 12/17/1912/16/2024 Renal funct ion 1999 panel - Serum or Plasm a carbon dioxide, total [moles/volum e] in serum or plasma 22 mmol/ L low: 22mmol /Lhigh : 29mmol /L CO2 22 22 - 29 mmol/ L 12/16 5:07 AM [facility] Not Available Not Available 12/16/2024 16:37:00 12/17/19 25 12/16/2024 Renal funct ion 1999 panel - Serum or Plasm a glucose [mass/volume ] in serum or plasma 83 mg/dL low: 70mg/d Lhigh: 99mg/d L Gluco se 83 70 - 99 mg/dL 12/16 5:07 AM [facility] Not Available Not Available 12/16/2024 16:37:00 12/17/19 25 12/16/2024 Renal funct ion 1999 panel - Serum or Plasm a albumin [mass/volume ] in serum or plasma by bromocresol green (bcg) dye binding method 3.3 g/dL low: 3.4g/d Lhigh: 5g/dL low Album in 3.3 (L) 3.4 - 5.0 g/dL 12/16 5:07 AM [facility] [email or web address] [facility] Not Available Not Available 12/16/2024 16:37:00 12/17/19 25 12/16/2024 Renal funct ion 1999 panel - Serum or Plasm a calcium [moles/volum e] in serum or plasma 8.7 mg/dL low: 8.4mg/ dLhigh : 10.2mg /dL Calci um 8.7 8.4 - 10.2 mg/dL 12/16 5:07 AM CDT [facility] [email or web address] [facility] Not Available Not Available 12/16/2024 16:37:00 12/17/19 25 12/16/2024 Renal funct ion 1999 panel - Serum or Plasm a phosphate [mass/volume ] in serum or plasma 4.4 mg/dL low: 2.9mg/ dLhigh : 5.1mg/ dL Phosp horus 4.4 2.9 - 5.1 mg/dL 12/16 5:07 AM CDT [email or web address] [email or web address] [facility] Not Available Not Available 12/16/2024 16:37:00 12/17/19 25 12/16/2024 Renal funct ion 1999 panel - Serum or Plasm a anion gap 8 low: 6high: 16 Anion Gap 8 6 - 16 12/16 5:07 AM [employer] [email or web address] [email or web address] [facility] Not Available Not Available 12/16/2024 16:37:00 12/17/19 25 12/16/2024 Renal funct ion 1999 panel - Serum or Plasm a urea nitrogen/cre atinine [mass ratio] in serum or plasma 10 low: 7high: 23 BUN/C reati nine Ratio 10 7 - 23 12/16 5:07 AM [employer] [facility] [email or web address] [facility] Not Available Not Available 12/16/2024 16:37:00 12/17/19 25 12/16/2024 Renal funct ion 2000 panel - Serum or Plasm a osmolality calculated 287 text: 275 - 295 mOsm/k g Osmol ality Calcu lated 287 275 - 295 mOsm/ kg 12/16 5:07 AM [facility] Not Available Not Available 12/16/2024 16:37:00 12/17/1912/16/2024 Renal funct ion 2000 panel - Serum or Plasm a glomerular filtration rate [volume rate/area] in serum, plasma or blood by creatinine-b ased formula (CKD-epi 2020)/1.73 sq M 62 text: >=90 mL/min /1.73 m2 low eGFR by CKD-E PI 62 (L) >=90 mL/mi n/1.7 3 m2 12/16 5:07 AM [facility] Not Available Not Available 12/16/2024 16:37:00 12/17/19 25 12/16/2024 Renal funct ion 2000 panel - Serum or Plasm a interpretati on and review of laboratory results Abnorm al Not Available Not Available 16:37:00 12/17/19 25 12/16/2024 Magne sium [Mass /volu me] in Serum or Plasm a magnesium [mass/volume ] in serum or plasma 2.3 mg/dL low: 1.6mg/ dLhigh : 2.6mg/ dL Magne sium 2.3 1.6 - 2.6 mg/dL 12/16 5:07 AM [facility] Not Available Not Available 12/16/2024 16:37:00 12/17/19 25 12/16/2024 Magne sium [Mass /volu me] in Serum or Plasm a interpretati on and review of laboratory results Normal Not Available Not Available 09/2024 16:37:00 12/17/19 25 12/16/2024 Chori ogona dotro pin [Pres ence] in Urine test urine Negati ve text: negati ve Pregn zulema Test Urine Negat jeffy Negat jeffy 12/16 3:55 AM [facility] Not Available Not Available 12/16/2024 16:37:01 12/17/19 25 12/16/2024 Chori ogona dotro pin [Pres ence] in Urine interpretati on and review of laboratory results Normal Not Available Not Available 09/2024 16:37:01 12/18/19 25 12/17/2024 CBC W Auto Diffe renti al panel - Blood leukocytes [#/volume] in blood by automated count 10.2 text: 4.0 - 10.7 x10e9/ L WBC 10.2 4.0 - 10.7 x10E9 /L 12/17 4:28 AM CDT [facility] Not Available Not Available 12/18/2024 06:47:51 12/18/1912/17/2024 CBC W Auto Diffe isaura al panel - Blood erythrocytes [#/volume] in blood by automated count 4.45 text: 3.90 - 5.20 x10e12 /L RBC Count 4.45 3.90 - 5.20 x10E1 2/L 12/17 4:28 AM T [facility] Not Available Not Available 12/18/2024 06:47:51 12/18/1912/17/2024 CBC W Auto Diffe isaura al panel - Blood hemoglobin [mass/volume ] in blood 12.6 g/dL low: 11.9g/ dLhigh : 15.8g/ dL Hemog lobin 12.6 11.9 - 15.8 g/dL 12/17 4:28 AM [facility] Not Available Not Available 12/18/2024 06:47:51 12/18/1912/17/2024 CBC W Auto Diffe isaura barriga panel - Blood hematocrit [volume fraction] of blood by automated count 39.7 % low: 34.8%h igh: 46.1% Hemat ocrit 39.7 34.8 - 46.1 % 12/17 4:28 AM [facility] Not Available Not Available 12/18/2024 06:47:51 12/18/19 25 12/17/2024 CBC W Auto Diffe renti al panel - Blood MCV [entitic mean volume] in red blood cells by automated count 89.2 fL low: 80fLhi gh: 98fL MCV 89.2 80.0 - 98.0 fL 12/17 4:28 AM [facility] Not Available Not Available 12/18/2024 06:47:51 12/18/1912/17/2024 CBC W Auto Diffe renti al panel - Blood MCH [entitic mass] by automated count 28.3 pg low: 26.7pg high: 33.6pg MCH 28.3 26.7 - 33.6 pg 12/17 4:28 AM [facility] Not Available Not Available 12/18/2024 06:47:51 12/18/1912/17/2024 CBC W Auto Diffe renti al panel - Blood MCHC [entitic mass/volume] in red blood cells by automated count 31.7 g/dL low: 31.7g/ dLhigh : 36.3g/ dL MCHC 31.7 31.7 - 36.3 g/dL 12/17 4:28 AM [facility] Not Available Not Available 12/18/2024 06:47:51 12/18/1912/17/2024 CBC W Auto Diffe renti al panel - Blood erythrocyte [distwidth] in red blood cells by automated count 14 % low: 11.3%h igh: 14.8% RDW-C V 14.0 11.3 - 14.8 % 12/17 4:28 AM [facility] Not Available Not Available 12/18/2024 06:47:51 12/18/1912/17/2024 CBC W Auto Diffe renti al panel - Blood platelets [#/volume] in blood by automated count 246 text: 150 - 420 x10e9/ L Plate let Count 246 150 - 420 x10E9 /L 12/17 4:28 AM [facility] Not Available Not Available 12/18/2024 06:47:51 12/18/1912/17/2024 CBC W Auto Diffe renti al panel - Blood platelet [entitic mean volume] in blood by automated count 10.5 fL low: 7.8fLh igh: 11.4fL MPV 10.5 7.8 - 11.4 fL 12/17 4:28 AM CDT [facility] Not Available Not Available 12/18/2024 06:47:51 12/18/1912/17/2024 CBC W Auto Diffe renti al panel - Blood neutrophils/ leukocytes in blood by automated count 62 % low: 41%hig h: 74% Neutr ophil % 62.0 41.0 - 74.0 % 12/17 4:28 AM CDT [facility] Not Available Not Available 12/18/2024 06:47:51 12/18/19 25 12/17/2024 CBC W Auto Diffe renti al panel - Blood lymphocytes/ leukocytes in blood by automated count 28.8 % low: 17%hig h: 47% Lymph ocyte % 28.8 17.0 - 47.0 % 12/17 4:28 AM CDT [facility] Not Available Not Available 12/18/2024 06:47:51 12/18/19 25 12/17/2024 CBC W Auto Diffe renti al panel - Blood monocytes/le ukocytes in blood by automated count 6.1 % low: 3%high : 11% Monoc yte % 6.1 3.0 - 11.0 % 12/17 4:28 AM CDT [facility] Not Available Not Available 12/18/2024 06:47:51 12/18/1912/17/2024 CBC W Auto Diffe renti al panel - Blood eosinophils/ leukocytes in blood by automated count 2.4 % low: 0%high : 7% Eosin ophil % 2.4 0.0 - 7.0 % 12/17 4:28 AM CDT [facility] Not Available Not Available 12/18/2024 06:47:51 12/18/19 25 12/17/2024 CBC W Auto Diffe renti al panel - Blood basophils/le ukocytes in blood by automated count 0.4 % low: 0%high : 1.6% Basop hil % 0.4 0.0 - 1.6 % 12/17 4:28 AM T [facility] Not Available Not Available 12/18/2024 06:47:51 04/02/12/17/2024 CBC W Auto Diffe renti al panel - Blood immature granulocytes /leukocytes in blood by automated count 0.3 % low: 0%high : 1% Immat ure Granu locyt es % 0.3 0.0 - 1.0 % 12/17 4:28 AM CDT [facility] [employer] SM[facility] Not Available Not Available 12/18/2024 06:47:51 12/18/19 25 12/17/2024 CBC W Auto Diffe renti al panel - Blood neutrophils [#/volume] in blood by automated count 6.33 text: 1.60 - 7.50 x10e9/ L Neutr ophil Absol red devil 6.33 1.60 - 7.50 x10E9 /L 12/17 4:28 AM CDT [email or web address] [email or web address] [facility] [facility] Not Available Not Available 12/18/2024 06:47:51 12/18/19 25 12/17/2024 CBC W Auto Diffe renti al panel - Blood lymphocytes [#/volume] in blood by automated count 2.94 text: 1.00 - 4.40 x10e9/ L Lymph ocyte Absol red devil 2.94 1.00 - 4.40 x10E9 /L 12/17 4:28 AM T [facility] [employer] [facility] Not Available Not Available 12/18/2024 06:47:51 12/18/1912/17/2024 CBC W Auto Diffe renti al panel - Blood monocytes [#/volume] in blood by automated count 0.62 text: 0.15 - 1.00 x10e9/ L Monoc yte Absol red devil 0.62 0.15 - 1.00 x10E9 /L 12/17 4:28 AM CDT [facility] [employer] [facility] Not Available Not Available 12/18/2024 06:47:51 12/18/19 25 12/17/2024 CBC W Auto Diffe renti al panel - Blood eosinophils [#/volume] in blood 0.25 text: 0.00 - 0.60 x10e9/ L Eosin ophil Absol red devil 0.25 0.00 - 0.60 x10E9 /L 12/17 4:28 AM [facility] Not Available Not Available 12/18/2024 06:47:51 12/18/1912/17/2024 CBC W Auto Diffe renti al panel - Blood basophils [#/volume] in blood by automated count 0.04 text: 0.00 - 0.13 x10e9/ L Basop hil Absol red devil 0.04 0.00 - 0.13 x10E9 /L 12/17 4:28 AM [facility] Not Available Not Available 12/18/2024 06:47:51 12/18/1912/17/2024 CBC W Auto Diffe renti al panel - Blood interpretati on and review of laboratory results Normal Not Available Not Available 11/2024 06:47:51 12/18/1912/17/2024 Renal funct ion 1999 panel - Serum or Plasm a urea nitrogen [mass/volume ] in serum or plasma 13 mg/dL low: 7mg/dL high: 26mg/d L BUN 13 7 - 26 mg/dL 12/17 5:06 AM [facility] Not Available Not Available 12/18/2024 06:47:51 12/18/1912/17/2024 Renal funct ion 1999 panel - Serum or Plasm a creatinine [mass/volume ] in serum or plasma 1.22 mg/dL low: 0.56mg /dLhig h: 0.96mg /dL high Creat inine 1.22 (H) 0.56 - 0.96 mg/dL 12/17 5:06 AM [facility] Not Available Not Available 12/18/2024 06:47:51 12/18/1912/17/2024 Renal funct ion 1999 panel - Serum or Plasm a sodium [moles/volum e] in serum or plasma 138 mmol/ L low: 136mmo l/Lhig h: 145mmo l/L Sodiu m 138 136 - 145 mmol/ L 12/17 5:06 AM [facility] Not Available Not Available 12/18/2024 06:47:51 12/18/19 25 12/17/2024 Renal funct ion 1999 panel - Serum or Plasm a potassium [moles/volum e] in serum or plasma 3.8 mmol/ L low: 3.5mmo l/Lhig h: 4.5mmo l/L Potas sium 3.8 3.5 - 4.5 mmol/ L 12/17 5:06 AM [facility] [email or web address] [facility] Not Available Not Available 12/18/2024 06:47:51 12/18/1912/17/2024 Renal funct ion 1999 panel - Serum or Plasm a chloride [moles/volum e] in serum or plasma 110 mmol/ L low: 98mmol /Lhigh : 107mmo l/L high Chlor lobo 110 (H) 98 - 107 mmol/ L 12/17 5:06 AM [facility] [email or web address] [facility] Not Available Not Available 12/18/2024 06:47:51 12/18/1912/17/2024 Renal funct ion 1999 panel - Serum or Plasm a carbon dioxide, total [moles/volum e] in serum or plasma 17 mmol/ L low: 22mmol /Lhigh : 29mmol /L low CO2 17 (L) 22 - 29 mmol/ L 12/17 5:06 AM [facility] [email or web address] [facility] Not Available Not Available 12/18/2024 06:47:51 12/18/1912/17/2024 Renal funct ion 1999 panel - Serum or Plasm a glucose [mass/volume ] in serum or plasma 80 mg/dL low: 70mg/d Lhigh: 99mg/d L Gluco se 80 70 - 99 mg/dL 12/17 5:06 AM [facility] [email or web address] [facility] Not Available Not Available 12/18/2024 06:47:51 12/18/19 25 12/17/2024 Renal funct ion 1999 panel - Serum or Plasm a albumin [mass/volume ] in serum or plasma by bromocresol green (bcg) dye binding method 3.2 g/dL low: 3.4g/d Lhigh: 5g/dL low Album in 3.2 (L) 3.4 - 5.0 g/dL 12/17 5:06 AM [facility] [email or web address] [facility] Not Available Not Available 12/18/2024 06:47:51 12/18/19 25 12/17/2024 Renal funct ion 1999 panel - Serum or Plasm a calcium [moles/volum e] in serum or plasma 8.5 mg/dL low: 8.4mg/ dLhigh : 10.2mg /dL Calci um 8.5 8.4 - 10.2 mg/dL 12/17 5:06 AM [facility] [email or web address] [facility] Not Available Not Available 12/18/2024 06:47:51 12/18/19 25 12/17/2024 Renal funct ion 1999 panel - Serum or Plasm a phosphate [mass/volume ] in serum or plasma 4.6 mg/dL low: 2.9mg/ dLhigh : 5.1mg/ dL Phosp horus 4.6 2.9 - 5.1 mg/dL 12/17 5:06 AM T [facility] [email or web address] [facility] Not Available Not Available 12/18/2024 06:47:51 12/18/19 25 12/17/2024 Renal funct ion 1999 panel - Serum or Plasm a anion gap 11 low: 6high: 16 Anion Gap 11 6 - 16 12/17 5:06 AM [facility] [email or web address] [facility] Not Available Not Available 12/18/2024 06:47:51 12/18/19 25 12/17/2024 Renal funct ion 1999 panel - Serum or Plasm a urea nitrogen/cre atinine [mass ratio] in serum or plasma 11 low: 7high: 23 BUN/C reati nine Ratio 11 7 - 23 12/17 5:06 AM [facility] [email or web address] [facility] Not Available Not Available 12/18/2024 06:47:51 12/18/19 25 12/17/2024 Renal funct ion 1999 panel - Serum or Plasm a osmolality calculated 285 text: 275 - 295 mOsm/k g Osmol ality Calcu lated 285 275 - 295 mOsm/ kg 12/17 5:06 AM [facility] [email or web address] [facility] Not Available Not Available 12/18/2024 06:47:51 12/18/19 25 12/17/2024 Renal funct ion 1999 panel - Serum or Plasm a glomerular filtration rate [volume rate/area] in serum, plasma or blood by creatinine-b ased formula (CKD-epi 2020)/1.73 sq M 60 text: >=90 mL/min /1.73 m2 low eGFR by CKD-E PI 60 (L) >=90 mL/mi n/1.7 3 m2 12/17 5:06 AM [facility] Not Available Not Available 12/18/2024 06:47:51 12/18/19 25 12/17/2024 Renal funct ion 1999 panel - Serum or Plasm a interpretati on and review of laboratory results Abnorm al Not Available Not Available 06:47:51 12/18/1912/17/2024 Magne sium [Mass /volu me] in Serum or Plasm a magnesium [mass/volume ] in serum or plasma 2.3 mg/dL low: 1.6mg/ dLhigh : 2.6mg/ dL Magne sium 2.3 1.6 - 2.6 mg/dL 12/17 5:06 AM [facility] Not Available Not Available 12/18/2024 06:47:51 12/18/1912/17/2024 Magne sium [Mass /volu me] in Serum or Plasm a interpretati on and review of laboratory results Normal Not Available Not Available 11/2024 06:47:51 12/18/1912/17/2024 Blood type and Indir ect antib maribel scree n panel - Blood blood group antibody screen [presence] in serum or plasma NEG Antib maribel Scree n NEG 12/17 4:46 AM [facility] Not Available Not Available 12/18/2024 06:47:50 12/18/19 25 12/17/2024 Blood type and Indir ect antib maribel scree n panel - Blood ABO and Rh group [type] in blood A POS ABO Rh A POS 12/17 4:46 AM [facility] Not Available Not Available 12/18/2024 06:47:50 12/19/19 25 12/18/2024 CBC W Auto Diffe renti al panel - Blood leukocytes [#/volume] in blood by automated count 8.5 text: 4.0 - 10.7 x10e9/ L WBC 8.5 4.0 - 10.7 x10E9 /L 12/18 2:16 AM CDT [facility] Not Available Not Available 12/18/2024 06:47:51 12/19/19 25 12/18/2024 CBC W Auto Salima barriga panel - Blood erythrocytes [#/volume] in blood by automated count 4.27 text: 3.90 - 5.20 x10e12 /L RBC Count 4.27 3.90 - 5.20 x10E1 2/L 12/18 2:16 AM CDT [facility] Not Available Not Available 12/18/2024 06:47:51 12/19/1912/18/2024 CBC W Auto Salima barriga panel - Blood hemoglobin [mass/volume ] in blood 12.2 g/dL low: 11.9g/ dLhigh : 15.8g/ dL Hemog lobin 12.2 11.9 - 15.8 g/dL 12/18 2:16 AM CDT [facility] Not Available Not Available 12/18/2024 06:47:51 12/19/1912/18/2024 CBC W Auto Salima barriga panel - Blood hematocrit [volume fraction] of blood by automated count 37.9 % low: 34.8%h igh: 46.1% Hemat ocrit 37.9 34.8 - 46.1 % 12/18 2:16 AM CDT [facility] Not Available Not Available 12/18/2024 06:47:51 12/19/19 25 12/18/2024 CBC W Auto Diffkeysha barriga panel - Blood MCV [entitic mean volume] in red blood cells by automated count 88.8 fL low: 80fLhi gh: 98fL MCV 88.8 80.0 - 98.0 fL 12/18 2:16 AM CDT [facility] Not Available Not Available 12/18/2024 06:47:51 12/19/19 25 12/18/2024 CBC W Auto Diffe renti al panel - Blood MCH [entitic mass] by automated count 28.6 pg low: 26.7pg high: 33.6pg MCH 28.6 26.7 - 33.6 pg 12/18 2:16 AM CDT [facility] Not Available Not Available 12/18/2024 06:47:51 12/19/19 25 12/18/2024 CBC W Auto Diffe renti al panel - Blood MCHC [entitic mass/volume] in red blood cells by automated count 32.2 g/dL low: 31.7g/ dLhigh : 36.3g/ dL MCHC 32.2 31.7 - 36.3 g/dL 12/18 2:16 AM CDT [facility] Not Available Not Available 12/18/2024 06:47:51 12/19/1912/18/2024 CBC W Auto Diffe renti al panel - Blood erythrocyte [distwidth] in red blood cells by automated count 14 % low: 11.3%h igh: 14.8% RDW-C V 14.0 11.3 - 14.8 % 12/18 2:16 AM T [facility] SMITA Not Available Not Available 12/18/2024 06:47:51 12/19/1912/18/2024 CBC W Auto Diffe renti al panel - Blood platelets [#/volume] in blood by automated count 232 text: 150 - 420 x10e9/ L Plate let Count 232 150 - 420 x10E9 /L 12/18 2:16 AM T [facility] SM[facility] Not Available Not Available 12/18/2024 06:47:51 12/19/19 25 12/18/2024 CBC W Auto Diffe renti al panel - Blood platelet [entitic mean volume] in blood by automated count 10.8 fL low: 7.8fLh igh: 11.4fL MPV 10.8 7.8 - 11.4 fL 12/18 2:16 AM CDT [facility] SMTIA Not Available Not Available 12/18/2024 06:47:51 12/19/19 25 12/18/2024 CBC W Auto Diffe renti al panel - Blood neutrophils/ leukocytes in blood by automated count 54.2 % low: 41%hig h: 74% Neutr ophil % 54.2 41.0 - 74.0 % 12/18 2:16 AM CDT [facility] SMITA Not Available Not Available 12/18/2024 06:47:51 12/19/19 25 12/18/2024 CBC W Auto Diffe renti al panel - Blood lymphocytes/ leukocytes in blood by automated count 34.4 % low: 17%hig h: 47% Lymph ocyte % 34.4 17.0 - 47.0 % 12/18 2:16 AM CDT [facility] SMITA Not Available Not Available 12/18/2024 06:47:51 12/19/19 25 12/18/2024 CBC W Auto Diffe renti al panel - Blood monocytes/le ukocytes in blood by automated count 7.3 % low: 3%high : 11% Monoc yte % 7.3 3.0 - 11.0 % 12/18 2:16 AM CDT [facility] Not Available Not Available 12/18/2024 06:47:51 12/19/1912/18/2024 CBC W Auto Diffe renti al panel - Blood eosinophils/ leukocytes in blood by automated count 3.4 % low: 0%high : 7% Eosin ophil % 3.4 0.0 - 7.0 % 12/18 2:16 AM CDT [facility] [email or web address] [facility] Not Available Not Available 12/18/2024 06:47:51 12/19/19 25 12/18/2024 CBC W Auto Diffe renti al panel - Blood basophils/le ukocytes in blood by automated count 0.5 % low: 0%high : 1.6% Basop hil % 0.5 0.0 - 1.6 % 12/18 2:16 AM CDT [facility] [email or web address] [facility] Not Available Not Available 12/18/2024 06:47:51 12/19/19 25 12/18/2024 CBC W Auto Diffe renti al panel - Blood immature granulocytes /leukocytes in blood by automated count 0.2 % low: 0%high : 1% Immat ure Granu locyt es % 0.2 0.0 - 1.0 % 12/18 2:[address] [facility] SMITA Not Available Not Available 12/18/2024 06:47:51 12/19/1912/18/2024 CBC W Auto Diffe renti al panel - Blood neutrophils [#/volume] in blood by automated count 4.58 text: 1.60 - 7.50 x10e9/ L Neutr ophil Absol red devil 4.58 1.60 - 7.50 x10E9 /L 12/18 2:16 AM CDT [facility] Not Available Not Available 12/18/2024 06:47:51 12/19/1912/18/2024 CBC W Auto Diffe renti al panel - Blood lymphocytes [#/volume] in blood by automated count 2.91 text: 1.00 - 4.40 x10e9/ L Lymph ocyte Absol red devil 2.91 1.00 - 4.40 x10E9 /L 12/18 2:16 AM CDT [facility] Not Available Not Available 12/18/2024 06:47:51 12/19/1912/18/2024 CBC W Auto Diffe renti al panel - Blood monocytes [#/volume] in blood by automated count 0.62 text: 0.15 - 1.00 x10e9/ L Monoc yte Absol red devil 0.62 0.15 - 1.00 x10E9 /L 12/18 2:[address] [facility] SMITA Not Available Not Available 12/18/2024 06:47:51 12/19/1912/18/2024 CBC W Auto Diffe renti al panel - Blood eosinophils [#/volume] in blood 0.29 text: 0.00 - 0.60 x10e9/ L Eosin ophil Absol red devil 0.29 0.00 - 0.60 x10E9 /L 12/18 2:16 AM CDT [facility] Not Available Not Available 12/18/2024 06:47:51 12/19/1912/18/2024 CBC W Auto Diffe renti al panel - Blood basophils [#/volume] in blood by automated count 0.04 text: 0.00 - 0.13 x10e9/ L Basop hil Absol red devil 0.04 0.00 - 0.13 x10E9 /L 12/18 2:16 AM CDT [facility] [email or web address] [email or web address] Not Available Not Available 12/18/2024 06:47:51 12/19/1912/18/2024 CBC W Auto Diffe renti al panel - Blood interpretati on and review of laboratory results Normal Not Available Not Available 11/2024 06:47:51 12/19/1912/18/2024 Renal funct ion 1999 panel - Serum or Plasm a urea nitrogen [mass/volume ] in serum or plasma 12 mg/dL low: 7mg/dL high: 26mg/d L BUN 12 7 - 26 mg/dL 12/18 2:35 AM T [facility] [email or web address] [email or web address] Not Available Not Available 12/18/2024 06:47:51 12/19/1912/18/2024 Renal funct ion 1999 panel - Serum or Plasm a creatinine [mass/volume ] in serum or plasma 1.13 mg/dL low: 0.56mg /dLhig h: 0.96mg /dL high Creat inine 1.13 (H) 0.56 - 0.96 mg/dL 12/18 2:35 AM [facility] [email or web address] [facility] Not Available Not Available 12/18/2024 06:47:51 12/19/1912/18/2024 Renal funct ion 1999 panel - Serum or Plasm a sodium [moles/volum e] in serum or plasma 137 mmol/ L low: 136mmo l/Lhig h: 145mmo l/L Sodiu m 137 136 - 145 mmol/ L 12/18 2:35 AM T [email or web address] [email or web address] [facility] SM[facility] Not Available Not Available 12/18/2024 06:47:51 12/19/19 25 12/18/2024 Renal funct ion 1999 panel - Serum or Plasm a potassium [moles/volum e] in serum or plasma 3.7 mmol/ L low: 3.5mmo l/Lhig h: 4.5mmo l/L Potas sium 3.7 3.5 - 4.5 mmol/ L 12/18 2:35 AM [facility] [email or web address] [facility] Not Available Not Available 12/18/2024 06:47:51 12/19/1912/18/2024 Renal funct ion 1999 panel - Serum or Plasm a chloride [moles/volum e] in serum or plasma 108 mmol/ L low: 98mmol /Lhigh : 107mmo l/L high Chlor lobo 108 (H) 98 - 107 mmol/ L 12/18 2:35 AM [facility] [email or web address] [facility] Not Available Not Available 12/18/2024 06:47:51 12/19/1912/18/2024 Renal funct ion 1999 panel - Serum or Plasm a carbon dioxide, total [moles/volum e] in serum or plasma 21 mmol/ L low: 22mmol /Lhigh : 29mmol /L low CO2 21 (L) 22 - 29 mmol/ L 12/18 2:35 AM [facility] [email or web address] [facility] Not Available Not Available 12/18/2024 06:47:51 12/19/1912/18/2024 Renal funct ion 1999 panel - Serum or Plasm a glucose [mass/volume ] in serum or plasma 88 mg/dL low: 70mg/d Lhigh: 99mg/d L Gluco se 88 70 - 99 mg/dL 12/18 2:35 AM [facility] [email or web address] [facility] Not Available Not Available 12/18/2024 06:47:51 12/19/1912/18/2024 Renal funct ion 1999 panel - Serum or Plasm a albumin [mass/volume ] in serum or plasma by bromocresol green (bcg) dye binding method 3 g/dL low: 3.4g/d Lhigh: 5g/dL low Album in 3.0 (L) 3.4 - 5.0 g/dL 12/18 2:35 AM [facility] [email or web address] [facility] SM[facility] Not Available Not Available 12/18/2024 06:47:51 12/19/1912/18/2024 Renal funct ion 1999 panel - Serum or Plasm a calcium [moles/volum e] in serum or plasma 8.5 mg/dL low: 8.4mg/ dLhigh : 10.2mg /dL Calci um 8.5 8.4 - 10.2 mg/dL 12/18 2:35 AM CDT [employer] SMITA Not Available Not Available 12/18/2024 06:47:51 12/19/1912/18/2024 Renal funct ion 1999 panel - Serum or Plasm a phosphate [mass/volume ] in serum or plasma 4.7 mg/dL low: 2.9mg/ dLhigh : 5.1mg/ dL Phosp horus 4.7 2.9 - 5.1 mg/dL 12/18 2:35 AM CDT [employer] [facility] SMITA Not Available Not Available 12/18/2024 06:47:51 12/19/19 25 12/18/2024 Renal funct ion 1999 panel - Serum or Plasm a anion gap 8 low: 6high: 16 Anion Gap 8 6 - 16 12/18 2:35 AM CDT [employer] SMITA Not Available Not Available 12/18/2024 06:47:51 12/19/19 25 12/18/2024 Renal funct ion 1999 panel - Serum or Plasm a urea nitrogen/cre atinine [mass ratio] in serum or plasma 11 low: 7high: 23 BUN/C reati nine Ratio 11 7 - 23 12/18 2:35 AM CDT [employer] [facility] SMITA Not Available Not Available 12/18/2024 06:47:51 12/19/19 25 12/18/2024 Renal funct ion 2000 panel - Serum or Plasm a osmolality calculated 283 text: 275 - 295 mOsm/k g Osmol ality Calcu lated 283 275 - 295 mOsm/ kg 12/18 2:35 AM CDT [employer] [facility] SMITA Not Available Not Available 12/18/2024 06:47:51 12/19/19 25 12/18/2024 Renal funct ion 1999 panel - Serum or Plasm a glomerular filtration rate [volume rate/area] in serum, plasma or blood by creatinine-b ased formula (CKD-epi 2020)/1.73 sq M 66 text: >=90 mL/min /1.73 m2 low eGFR by CKD-E PI 66 (L) >=90 mL/mi n/1.7 3 m2 12/18 2:35 AM CDT [facility] Not Available Not Available 12/18/2024 06:47:51 12/19/19 25 12/18/2024 Renal funct ion 2000 panel - Serum or Plasm a interpretati on and review of laboratory results Abnorm al Not Available Not Available 06:47:51 12/19/19 25 12/18/2024 Magne sium [Mass /volu me] in Serum or Plasm a magnesium [mass/volume ] in serum or plasma 2.3 mg/dL low: 1.6mg/ dLhigh : 2.6mg/ dL Magne sium 2.3 1.6 - 2.6 mg/dL 12/18 2:35 AM CDT [facility] SM[facility] Not Available Not Available 12/18/2024 06:47:51 12/19/19 25 12/18/2024 Magne sium [Mass /volu me] in Serum or Plasm a interpretati on and review of laboratory results Normal Not Available Not Available 11/2024 06:47:51 01/03/20 25 01/03/2025 COMP. METAB OLIC PANEL (14) glucose 81 mg/dL 70-99 Not Available [facility] ([facility]) [address] [place], [address], 01/03/2025 09:28:06 01/03/20 25 01/03/2025 COMP. METAB OLIC PANEL (14) BUN 10 mg/dL 6-20 Not Available [facility] ([facility] [employer]) [address] [place], [address], 01/03/2025 09:28:06 01/03/20 25 01/03/2025 COMP. METAB OLIC PANEL (14) creatinine 0.94 mg/dL 0.57-1 .00 Not Available [facility] ([facility]) [address] [place], [address], 01/03/2025 09:28:06 01/03/20 25 01/03/2025 COMP. METAB OLIC PANEL (14) eGFR 82 mL/mi n/1.7 3 >59 Not Available [facility] ([facility]) [address], [place], [address], 01/03/2025 09:28:06 01/03/20 25 01/03/2025 COMP. METAB OLIC PANEL (14) BUN/creatini ne ratio 11 9-23 Not Available [facility] ([facility]) [address], [place], [place], [address], 01/03/2025 09:28:06 01/03/20 25 01/03/2025 COMP. METAB OLIC PANEL (14) sodium 139 mmol/ L 134-14 4 Not Available [facility] ([facility]) [address], [place], [place], [address], 01/03/2025 09:28:06 01/03/20 25 01/03/2025 COMP. METAB OLIC PANEL (14) potassium 4.6 mmol/ L 3.5-5. 2 Not Available [facility] ([facility]) [address], [place], [place], [address], 01/03/2025 09:28:06 01/03/20 25 01/03/2025 COMP. METAB OLIC PANEL (14) chloride 101 mmol/ L 96-106 Not Available [facility] ([facility]) [address], [place], [place], [address], 01/03/2025 09:28:06 01/03/20 25 01/03/2025 COMP. METAB OLIC PANEL (14) carbon dioxide, total 22 mmol/ L 20-29 Not Available [facility] ([facility]) [address], [place], [place], [address], 01/03/2025 09:28:06 01/03/20 25 01/03/2025 COMP. METAB OLIC PANEL (14) calcium 9.1 mg/dL 8.7-10 .2 Not Available [facility] ([facility]) [address], [place], [place], [address], 01/03/2025 09:28:06 01/03/20 25 01/03/2025 COMP. METAB OLIC PANEL (14) protein, total 6.8 g/dL 6.0-8. 5 Not Available [facility] ([facility]) [address], [place], [place], [address], 01/03/2025 09:28:06 01/03/20 25 01/03/2025 COMP. METAB OLIC PANEL (14) albumin 4.1 g/dL 3.9-4. 9 Not Available [facility] ([facility]) [address], [place], [place], [address], 01/03/2025 09:28:06 01/03/20 25 01/03/2025 COMP. METAB OLIC PANEL (14) globulin, total 2.7 g/dL 1.5-4. 5 Not Available [facility] ([facility]) [address], [place], [place], [address], 01/03/2025 09:28:06 01/03/20 25 01/03/2025 COMP. METAB OLIC PANEL (14) bilirubin, total 0.4 mg/dL 0.0-1. 2 Not Available [facility] ([facility]) [address], [place], [place], [address], 01/03/2025 09:28:06 01/03/20 25 01/03/2025 COMP. METAB OLIC PANEL (14) alkaline phosphatase 101 IU/L 44-121 Not Available [facility] ([facility]) [address], [place], [place], [address], 01/03/2025 09:28:06 01/03/20 25 01/03/2025 COMP. METAB OLIC PANEL (14) AST (SGOT) 18 IU/L 0-40 Not Available [facility] ([facility]) [address], [place], [place], [address], 01/03/2025 09:28:06 01/03/20 25 01/03/2025 COMP. METAB OLIC PANEL (14) ALT (SGPT) 17 IU/L 0-32 Not Available [facility] ([facility]) [address], [place], [place], [address], 01/03/2025 09:28:06 01/03/20 25 01/03/2025 TSH RFX ON ABNOR MAL TO FREE T4 TSH 1.890 uIU/m L 0.450- 4.500 Not Available [facility] ([facility]) [address], [place], [place], [address], 01/03/2025 09:28:07 01/03/20 25 01/03/2025 HEMOG LOBIN A1C hemoglobin A1C 5.9 % 4.8-5. 6 above high normal Predi abete s: 5.7 - 6.4 Diabe gualberto: >6.4 Glyce presley contr ol for adult s with diabe gualberto: <7.0 Not Available [facility] ([facility]) [address], [place], [place], [address], 01/03/2025 09:28:08 01/03/20 25 01/02/2025 urina lysis , dipst ick Leukocytes Negati ve Not Available In-Office Order Internal Use Only DO Not Attach Compendium DO Not Attach Compendium, Do Not Delete/merge, [id number] 01/02/2025 16:47:21 01/03/20 25 01/02/2025 urina lysis , dipst ick Nitrite negati ve Not Available In-Office Order Internal Use Only DO Not Attach Compendium DO Not Attach Compendium, Do Not Delete/merge, [id number] 01/02/2025 16:47:21 01/03/20 25 01/02/2025 urina lysis , dipst ick Urobilinogen .2 Not Available In-Of fice Order Internal Use Only DO Not Attach Compendium DO Not Attach Compendium, Do Not Delete/merge, 01/02/2025 16:47:21 01/03/20 25 01/02/2025 urina lysis , dipst ick Protein Negati ve Not Available In-Office Order Internal Use Only DO Not Attach Compendium DO Not Attach Compendium, Do Not Delete/merge, 01/02/2025 16:47:21 01/03/20 25 01/02/2025 urina lysis , dipst ick Blood Negati ve Not Available In-Office Order Internal Use Only DO Not Attach Compendium DO Not Attach Compendium, Do Not Delete/merge, 01/02/2025 16:47:21 01/03/20 25 01/02/2025 urina lysis , dipst ick Ketone Negati ve Not Available In-Office Order Internal Use Only DO Not Attach Compendium DO Not Attach Compendium, Do Not Delete/merge, 01/02/2025 16:47:21 01/03/20 25 01/02/2025 urina lysis , dipst ick Bilirubin Negati ve Not Available In-Office Order Internal Use Only DO Not Attach Compendium DO Not Attach Compendium, Do Not Delete/merge, 01/02/2025 16:47:21 01/03/20 25 01/02/2025 urina lysis , dipst ick Glucose Negati ve Not Available In-Office Order Internal Use Only DO Not Attach Compendium DO Not Attach Compendium, Do Not Delete/merge, 01/02/2025 16:47:21 01/19/20 25 01/20/2025 Bacte adriel ident ified in Urine by Cultu re bacteria identified in urine by culture KLEBSI RODRI PNEUMO NIAE CULTU RE RESUL TS KLEBS IELLA PNEUM ONIAE 01/20 4:15 PM CDT [facility] Not Available Not Available 01/21/2025 15:43:51 01/19/20 25 01/20/2025 Bacte adriel ident ified in Urine by Cultu re bacteria identified in urine by culture Also mixed growth of distal urethr al contam inants CULTU RE RESUL TS Also mixed growt h of dista l ureth ral conta minan ts 01/20 4:15 PM CDT [facility] Not Available Not Available 01/21/2025 15:43:51 01/19/20 25 01/18/2025 Chori ogona dotro pin.b eta subun it [Pres ence] in Urine choriogonado tropin.beta subunit [presence] in urine Negati ve PREG TEST, MONOC LONAL Negat jeffy 01/18 2:13 PM CDT [facility] Not Available Not Available 01/20/2025 03:18:26 01/19/20 25 01/18/2025 Drugs of abuse panel - Urine by Scree n metho d amphetamine [presence] in urine by screen method NON DETECT ED text: non detect ed UR AMPHE TAMIN E NON DETEC TOMASA NON DETEC TOMASA 01/18 1:50 PM CDT [facility] Not Available Not Available 01/20/2025 03:18:26 01/19/20 25 01/18/2025 Drugs of abuse panel - Urine by Scree n metho d benzodiazepi rahul [presence] in urine NON DETECT ED text: non detect ed UR BENZO DIAZE PINES NON DETEC TOMASA NON DETEC TOMASA 01/18 1:50 PM CDT [facility] Not Available Not Available 01/20/2025 03:18:26 01/19/20 25 01/18/2025 Drugs of abuse panel - Urine by Scree n metho d benzoylecgon ine [presence] in urine NON DETECT ED text: non detect ed UR COCAI NE METAB OLITE NON DETEC TOMASA NON DETEC TOMASA 01/18 1:50 PM CDT [facility] Not Available Not Available 01/20/2025 03:18:26 01/19/20 25 01/18/2025 Drugs of abuse panel - Urine by Scree n metho d opiates [presence] in urine NON DETECT ED text: non detect ed UR OPIAT ES NON DETEC TOMASA NON DETEC TOMASA 01/18 1:50 PM CDT [facility] Not Available Not Available 01/20/2025 03:18:26 01/19/20 25 01/18/2025 Drugs of abuse panel - Urine by Ina munson metho d phencyclidin e [presence] in urine NON DETECT ED text: non detect ed UR PHENC YCLID INE NON DETEC TOMASA NON DETEC TOMASA 01/18 1:50 PM CDT [facility] Not Available Not Available 01/20/2025 03:18:26 01/19/20 25 01/18/2025 Drugs of abuse panel - Urine by Screkeysha munson metho d cannabinoids [presence] in urine NON DETECT ED text: non detect ed UR CANNA BINOI D NON DETEC TOMASA NON DETEC TOMASA 01/18 1:50 PM CDT [facility] Not Available Not Available 01/20/2025 03:18:26 01/19/20 25 01/18/2025 Drugs of abuse panel - Urine by Ina munson metho d barbiturates [presence] in urine NON DETECT ED text: non detect ed UR KASSI TURAT E NON DETEC TOMASA NON DETEC TOMASA 01/18 1:50 PM CDT [facility] Not Available Not Available 01/20/2025 03:18:26 01/19/20 25 01/18/2025 Drugs of abuse panel - Urine by Ina n metho d ur fentanyl NON DETECT ED text: non detect ed UR FENTA NYL NON DETEC TOMASA NON DETEC TOMASA 01/18 1:50 PM CDT [facility] Not Available Not Available 01/20/2025 03:18:26 01/19/20 25 01/18/2025 Drugs of abuse panel - Urine by Scree n metho d interpretati on and review of laboratory results Normal Not Available Not Available 02/2025 03:18:26 01/19/20 25 01/18/2025 CBC W Auto Diffe renti al panel - Blood leukocytes [#/volume] in blood by automated count 8.24 text: 4.00 - 12.00 10(3)/ mcL WBC 8.24 4.00 - 12.00 10(3) /mcL 01/18 12:16 PM CDT [facility] Not Available Not Available 01/20/2025 03:18:26 01/19/20 25 01/18/2025 CBC W Auto Diffe renti al panel - Blood erythrocytes [#/volume] in blood by automated count 4.23 text: 3.80 - 5.30 10(6)/ mcL RBC 4.23 3.80 - 5.30 10(6) /mcL 01/18 12:16 PM CDT [facility] Not Available Not Available 01/20/2025 03:18:26 01/19/2001/18/2025 CBC W Auto Diffe renti al panel - Blood hemoglobin [mass/volume ] in blood 12.1 g/dL low: 12g/dL high: 15.8g/ dL HEMOG LOBIN (HGB) 12.1 12.0 - 15.8 g/dL 01/18 12:16 PM CDT [facility] Not Available Not Available 01/20/2025 03:18:26 01/19/2001/18/2025 CBC W Auto Diffe renti al panel - Blood hematocrit [volume fraction] of blood by automated count 38.8 % low: 36%hig h: 47% HEMAT OCRIT (HCT) 38.8 36.0 - 47.0 % 01/18 12:16 PM CDT [facility] Not Available Not Available 01/20/2025 03:18:26 01/19/20 25 01/18/2025 CBC W Auto Diffe renti al panel - Blood MCV [entitic mean volume] in red blood cells by automated count 91.7 fL low: 82fLhi gh: 96fL MCV 91.7 82.0 - 96.0 fL 01/18 12:16 PM CDT [facility] Not Available Not Available 01/20/2025 03:18:26 01/19/20 25 01/18/2025 CBC W Auto Diffe renti al panel - Blood MCH [entitic mass] by automated count 28.6 pg low: 26pghi gh: 34pg MCH 28.6 26.0 - 34.0 pg 01/18 12:16 PM CDT [facility] [employer] [facility] Not Available Not Available 01/20/2025 03:18:26 01/19/2001/18/2025 CBC W Auto Diffe renti al panel - Blood MCHC [entitic mass/volume] in red blood cells by automated count 31.2 g/dL low: 31g/dL high: 36g/dL MCHC 31.2 31.0 - 36.0 g/dL 01/18 12:16 PM CDT [facility] [employer] [facility] Not Available Not Available 01/20/2025 03:18:26 01/19/2001/18/2025 CBC W Auto Diffe renti al panel - Blood platelets [#/volume] in blood 265 text: 140 - 440 10(3)/ mcL PLATE LET COUNT 265 140 - 440 10(3) /mcL 01/18 12:16 PM CDT [facility] [employer] [facility] Not Available Not Available 01/20/2025 03:18:26 01/19/20 25 01/18/2025 CBC W Auto Diffe renti al panel - Blood erythrocyte [distwidth] in red blood cells by automated count 13.4 % low: 11.8%h igh: 15.5% RDW 13.4 11.8 - 15.5 % 01/18 12:16 PM CDT [facility] [employer] [facility] Not Available Not Available 01/20/2025 03:18:26 01/19/20 25 01/18/2025 CBC W Auto Diffe renti al panel - Blood platelet [entitic mean volume] in blood by automated count 10.7 fL low: 9.7fLh igh: 12.4fL MPV 10.7 9.7 - 12.4 fL 01/18 12:16 PM CDT [facility] Not Available Not Available 01/20/2025 03:18:26 01/19/20 25 01/18/2025 CBC W Auto Diffe renti al panel - Blood neutrophils/ leukocytes in blood by automated count 69.2 % low: 47%hig h: 73% NEUTR OPHIL S 69.2 47.0 - 73.0 % 01/18 12:[address] [facility] Not Available Not Available 01/20/2025 03:18:26 01/19/20 25 01/18/2025 CBC W Auto Diffe renti al panel - Blood lymphocytes/ leukocytes in blood by automated count 24.2 % low: 18%hig h: 42% LYMPH OCYTE S 24.2 18.0 - 42.0 % 01/18 12:16 PM CDT [facility] Not Available Not Available 01/20/2025 03:18:26 01/19/20 25 01/18/2025 CBC W Auto Diffe renti al panel - Blood monocytes/le ukocytes in blood by automated count 4.5 % low: 4%high : 12% MONOC YTES 4.5 4.0 - 12.0 % 01/18 12:[address] [facility] Not Available Not Available 01/20/2025 03:18:26 01/19/20 25 01/18/2025 CBC W Auto Diffe renti al panel - Blood eosinophils/ leukocytes in blood by automated count 1.9 % low: 0%high : 5% EOSIN OPHIL S 1.9 0.0 - 5.0 % 01/18 12:16 PM CDT [facility] Not Available Not Available 01/20/2025 03:18:26 01/19/20 25 01/18/2025 CBC W Auto Diffe renti al panel - Blood basophils/le ukocytes in blood by automated count 0.2 % low: 0%high : 1% BASOP HILS 0.2 0.0 - 1.0 % 01/18 12:[address] [facility] Not Available Not Available 01/20/2025 03:18:26 01/19/20 25 01/18/2025 CBC W Auto Diffe renti al panel - Blood neutrophils [#/volume] in blood by automated count 5.7 text: 1.60 - 7.70 10(3)/ mcL ABSOL [place] NEUTR OPHIL S 5.70 1.60 - 7.70 10(3) /mcL 01/18 12:16 PM CDT [facility] Not Available Not Available 01/20/2025 03:18:26 01/19/20 25 01/18/2025 CBC W Auto Diffe renti al panel - Blood lymphocytes [#/volume] in blood by automated count 1.99 text: 1.30 - 3.20 10(3)/ mcL ABSOL [place] LYMPH OCYTE S 1.99 1.30 - 3.20 10(3) /mcL 01/18 12:16 PM CDT [facility] Not Available Not Available 01/20/2025 03:18:26 01/19/20 25 01/18/2025 CBC W Auto Diffe renti al panel - Blood monocytes [#/volume] in blood by automated count 0.37 text: 0.20 - 1.00 10(3)/ mcL ABSOL [place] MONOC YTES 0.37 0.20 - 1.00 10(3) /mcL 01/18 12:16 PM CDT [facility] Not Available Not Available 01/20/2025 03:18:26 01/19/20 25 01/18/2025 CBC W Auto Diffe renti al panel - Blood eosinophils [#/volume] in blood by automated count 0.16 text: 0.00 - 0.40 10(3)/ mcL ABSOL SHUNGNAK EOSIN OPHIL 0.16 0.00 - 0.40 10(3) /mcL 01/18 12:16 PM CDT [facility] Not Available Not Available 01/20/2025 03:18:26 01/19/20 25 01/18/2025 CBC W Auto Diffe renti al panel - Blood basophils [#/volume] in blood by automated count 0.02 text: 0.00 - 0.10 10(3)/ mcL ABSOL SHUNGNAK BASOP HILS 0.02 0.00 - 0.10 10(3) /mcL 01/18 12:16 PM CDT [facility] Not Available Not Available 01/20/2025 03:18:26 01/19/20 25 01/18/2025 CBC W Auto Diffe renti al panel - Blood nucleated erythrocytes /leukocytes [ratio] in blood 0 NRBC PER 100 WBC 0 01/18 12:16 PM CDT [facility] Not Available Not Available 01/20/2025 03:18:26 01/19/2001/18/2025 Compr ehens jeffy metab olic 1999 panel - Serum or Plasm a sodium [moles/volum e] in serum or plasma 141 mmol/ L low: 136mmo l/Lhig h: 145mmo l/L SODIU M 141 136 - 145 mmol/ L 01/18 12:45 PM CDT [facility] Not Available Not Available 01/20/2025 03:18:26 01/19/2001/18/2025 Compr ehens jeffy metab olic 1999 panel - Serum or Plasm a potassium [moles/volum e] in serum or plasma 3.9 mmol/ L low: 3.5mmo l/Lhig h: 5.1mmo l/L POTAS SIUM 3.9 3.5 - 5.1 mmol/ L 01/18 12:45 PM CDT [facility] Not Available Not Available 01/20/2025 03:18:26 01/19/2001/18/2025 Compr ehens jeffy metab olic 1999 panel - Serum or Plasm a chloride [moles/volum e] in serum or plasma 108 mmol/ L low: 98mmol /Lhigh : 107mmo l/L high CHLOR LOBO 108 (H) 98 - 107 mmol/ L 01/18 12:45 PM CDT [facility] Not Available Not Available 01/20/2025 03:18:26 01/19/20 25 01/18/2025 Compr ehens jeffy metab olic 1999 panel - Serum or Plasm a carbon dioxide, total [moles/volum e] in serum or plasma 24 mmol/ L low: 22mmol /Lhigh : 30mmol /L CO2, VENOU S 24 22 - 30 mmol/ L 01/18 12:45 PM CDT [facility] [employer] R [facility] Not Available Not Available 01/20/2025 03:18:26 01/19/20 25 01/18/2025 Compr ehens jeffy metab olic 1999 panel - Serum or Plasm a anion gap in serum or plasma by calculation 12.9 mmol/ L high: 18mmol /L ANION GAP 12.9 <18.0 mmol/ L 01/18 12:45 PM CDT [facility] [employer] [facility] Not Available Not Available 01/20/2025 03:18:26 01/19/2001/18/2025 Compr ehens jeffy metab olic 1999 panel - Serum or Plasm a glucose [mass/volume ] in serum or plasma 102 mg/dL low: 70mg/d Lhigh: 99mg/d L high GLUCO SE 102 (H) 70 - 99 mg/dL 01/18 12:45 PM CDT [facility] [employer] [facility] Not Available Not Available 01/20/2025 03:18:26 01/19/2001/18/2025 Compr ehens jeffy metab olic 1999 panel - Serum or Plasm a urea nitrogen [mass/volume ] in serum or plasma 8 mg/dL low: 5mg/dL high: 18mg/d L BUN 8 5 - 18 mg/dL 01/18 12:45 PM CDT [facility] Not Available Not Available 01/20/2025 03:18:26 01/19/20 25 01/18/2025 Compr ehens jeffy metab olic 2000 panel - Serum or Plasm a creatinine [mass/volume ] in serum or plasma 0.77 mg/dL low: 0.6mg/ dLhigh : 1mg/dL CREAT ININE , BLOOD 0.77 0.60 - 1.00 mg/dL 01/18 12:45 PM CDT [facility] Not Available Not Available 01/20/2025 03:18:26 01/19/20 25 01/18/2025 Compr ehens jeffy metab olic 1999 panel - Serum or Plasm a urea nitrogen/cre atinine [mass ratio] in serum or plasma 10 text: 12 - 20 ratio low BUN/C REATI NINE RATIO 10 (L) 12 - 20 ratio 01/18 12:45 PM CDT [facility] Not Available Not Available 01/20/2025 03:18:26 01/19/20 25 01/18/2025 Compr ehens jeffy metab olic 1999 panel - Serum or Plasm a protein [mass/volume ] in serum or plasma 7.2 g/dL low: 6g/dLh igh: 8g/dL TOTAL PROTE IN 7.2 6.0 - 8.0 g/dL 01/18 12:45 PM CDT [facility] Not Available Not Available 01/20/2025 03:18:26 01/19/20 25 01/18/2025 Compr ehens jeffy metab olic 1999 panel - Serum or Plasm a albumin [mass/volume ] in serum or plasma 3.6 g/dL low: 3.5g/d Lhigh: 5g/dL ALBUM IN 3.6 3.5 - 5.0 g/dL 01/18 12:45 PM CDT [facility] Not Available Not Available 01/20/2025 03:18:26 01/19/20 25 01/18/2025 Compr ehens jeffy metab olic 1999 panel - Serum or Plasm a albumin/glob ulin [mass ratio] in serum or plasma 1 low: 1high: 2.2 A/G RATIO 1.0 1.0 - 2.2 01/18 12:45 PM CDT [facility] Not Available Not Available 01/20/2025 03:18:26 01/19/20 25 01/18/2025 Compr ehens jeffy metab olic 2000 panel - Serum or Plasm a calcium [mass/volume ] in serum or plasma 8.6 mg/dL low: 8.7mg/ dLhigh : 10.5mg /dL low CALCI UM 8.6 (L) 8.7 - 10.5 mg/dL 01/18 12:45 PM CDT [facility] Not Available Not Available 01/20/2025 03:18:26 01/19/20 25 01/18/2025 Compr ens jeffy metab [facility] 1999 panel - Serum or Plasm a bilirubin.to smita [mass/volume ] in serum or plasma 0.4 mg/dL low: 0.2mg/ dLhigh : 1.2mg/ dL T BILI 0.4 0.2 - 1.2 mg/dL 01/18 12:45 PM CDT [facility] [employer] [facility] Not Available Not Available 01/20/2025 03:18:26 01/19/2001/18/2025 Compr ens jeffy metab [facility] 1999 panel - Serum or Plasm a aspartate aminotransfe rase [enzymatic activity/vol ume] in serum or plasma 21 U/L high: 43U/L SGOT (AST) 21 <43 U/L 01/18 12:45 PM CDT [facility] Not Available Not Available 01/20/2025 03:18:26 01/19/20 25 01/18/2025 Compr ens jeffy metab [facility] 1999 panel - Serum or Plasm a alanine aminotransfe rase [enzymatic activity/vol ume] in serum or plasma 15 U/L high: 56U/L SGPT (ALT) 15 <56 U/L 01/18 12:45 PM CDT [facility] [employer] [facility] Not Available Not Available 01/20/2025 03:18:26 01/19/20 25 01/18/2025 Compr ehens jeffy metab ic 1999 panel - Serum or Plasm a alkaline phosphatase [enzymatic activity/vol ume] in serum or plasma 90 U/L low: 40U/Lh igh: 150U/L ALKAL INE PHOSP HATAS E 90 40 - 150 U/L 01/18 12:45 PM CDT [facility] Not Available Not Available 01/20/2025 03:18:26 01/19/2001/18/2025 Compr ehens jeffy metab olic 2000 panel - Serum or Plasm a glomerular filtration rate [volume rate/area] in serum, plasma or blood by creatinine-b ased formula (CKD-epi 2020)/1.73 sq M low: 60 GFR, ESTIM ATED >60 >=60 01/18 12:45 PM CDT [facility] Not Available Not Available 01/20/2025 03:18:26 01/19/2001/18/2025 Compr ehens jeffy metab olic 2000 panel - Serum or Plasm a glomerular filtration rate [volume rate/area] in serum, plasma or blood by creatinine-b ased formula (MDRD)/1.73 sq M among black population low: 60 GFR, EST. AFRIC AN >60 >=60 01/18 12:45 PM CDT [facility] Not Available Not Available 01/20/2025 03:18:26 01/19/2001/18/2025 Compr ehens jeffy metab olic 2000 panel - Serum or Plasm a glomerular filtration rate [volume rate/area] in serum, plasma or blood by creatinine-b ased formula (MDRD)/1.73 sq M among non black population low: 60 GFR, EST. NONAF RICAN >60 >=60 01/18 12:45 PM CDT [facility] Not Available Not Available 01/20/2025 03:18:26 01/19/2001/18/2025 Compr ehens jeffy metab olic 2000 panel - Serum or Plasm a interpretati on and review of laboratory results Abnorm al Not Available Not Available 03:18:26 01/28/2001/27/2025 CBC W Auto Diffe renti al panel - Blood leukocytes [#/volume] in blood by automated count 10.6 text: 4.0 - 10.7 x10e9/ L WBC 10.6 4.0 - 10.7 x10E9 /L 01/27 3:52 PM CDT [facility] Not Available Not Available 02/02/2025 11:31:03 01/28/20 25 01/27/2025 CBC W Auto Diffe isaura barriga panel - Blood erythrocytes [#/volume] in blood by automated count 4.44 text: 3.90 - 5.20 x10e12 /L RBC Count 4.44 3.90 - 5.20 x10E1 2/L 01/27 3:52 PM CDT [facility] Not Available Not Available 02/02/2025 11:31:03 01/28/20 25 01/27/2025 CBC W Auto Diffkeysha barriga panel - Blood hemoglobin [mass/volume ] in blood 12.6 g/dL low: 11.9g/ dLhigh : 15.8g/ dL Hemog lobin 12.6 11.9 - 15.8 g/dL 01/27 3:52 PM CDT [facility] Not Available Not Available 02/02/2025 11:31:03 01/28/20 25 01/27/2025 CBC W Auto Diffkeysha barriga panel - Blood hematocrit [volume fraction] of blood by automated count 40 % low: 34.8%h igh: 46.1% Hemat ocrit 40.0 34.8 - 46.1 % 01/27 3:52 PM CDT [facility] Not Available Not Available 02/02/2025 11:31:03 01/28/20 25 01/27/2025 CBC W Auto Diffe isaura barriga panel - Blood MCV [entitic mean volume] in red blood cells by automated count 90.1 fL low: 80fLhi gh: 98fL MCV 90.1 80.0 - 98.0 fL 01/27 3:52 PM CDT [facility] Not Available Not Available 02/02/2025 11:31:03 01/28/20 25 01/27/2025 CBC W Auto Diffe isaura barriga panel - Blood MCH [entitic mass] by automated count 28.4 pg low: 26.7pg high: 33.6pg MCH 28.4 26.7 - 33.6 pg 01/27 3:52 PM CDT [facility] Not Available Not Available 02/02/2025 11:31:03 01/28/20 25 01/27/2025 CBC W Auto Diffe renti al panel - Blood MCHC [entitic mass/volume] in red blood cells by automated count 31.5 g/dL low: 31.7g/ dLhigh : 36.3g/ dL low MCHC 31.5 (L) 31.7 - 36.3 g/dL 01/27 3:52 PM CDT [facility] Not Available Not Available 02/02/2025 11:31:03 01/28/20 25 01/27/2025 CBC W Auto Diffe renti al panel - Blood erythrocyte [distwidth] in red blood cells by automated count 13.2 % low: 11.3%h igh: 14.8% RDW-C V 13.2 11.3 - 14.8 % 01/27 3:52 PM CDT [facility] Not Available Not Available 02/02/2025 11:31:03 01/28/20 25 01/27/2025 CBC W Auto Diffe margaretti al panel - Blood platelets [#/volume] in blood by automated count 281 text: 150 - 420 x10e9/ L Plate let Count 281 150 - 420 x10E9 /L 01/27 3:52 PM CDT [facility] Not Available Not Available 02/02/2025 11:31:03 01/28/20 25 01/27/2025 CBC W Auto Diffe renti al panel - Blood platelet [entitic mean volume] in blood by automated count 10.4 fL low: 7.8fLh igh: 11.4fL MPV 10.4 7.8 - 11.4 fL 01/27 3:52 PM CDT [facility] Not Available Not Available 02/02/2025 11:31:03 01/28/20 25 01/27/2025 CBC W Auto Diffe renti al panel - Blood neutrophils/ leukocytes in blood by automated count 62.6 % low: 41%hig h: 74% Neutr ophil % 62.6 41.0 - 74.0 % 01/27 3:52 PM CDT [facility] Not Available Not Available 02/02/2025 11:31:03 01/28/20 25 01/27/2025 CBC W Auto Diffe renti al panel - Blood lymphocytes/ leukocytes in blood by automated count 29.3 % low: 17%hig h: 47% Lymph ocyte % 29.3 17.0 - 47.0 % 01/27 3:52 PM CDT [facility] Not Available Not Available 02/02/2025 11:31:03 01/28/20 25 01/27/2025 CBC W Auto Diffe renti al panel - Blood monocytes/le ukocytes in blood by automated count 5.5 % low: 3%high : 11% Monoc yte % 5.5 3.0 - 11.0 % 01/27 3:52 PM CDT [facility] Not Available Not Available 02/02/2025 11:31:03 01/28/20 25 01/27/2025 CBC W Auto Diffe renti al panel - Blood eosinophils/ leukocytes in blood by automated count 2 % low: 0%high : 7% Eosin ophil % 2.0 0.0 - 7.0 % 01/27 3:52 PM CDT [facility] Not Available Not Available 02/02/2025 11:31:03 01/28/20 25 01/27/2025 CBC W Auto Diffe renti al panel - Blood basophils/le ukocytes in blood by automated count 0.3 % low: 0%high : 1.6% Basop hil % 0.3 0.0 - 1.6 % 01/27 3:52 PM CDT [facility] Not Available Not Available 02/02/2025 11:31:03 01/28/20 25 01/27/2025 CBC W Auto Diffe renti al panel - Blood immature granulocytes /leukocytes in blood by automated count 0.3 % low: 0%high : 1% Immat ure Granu locyt es % 0.3 0.0 - 1.0 % 01/27 3:52 PM CDT [facility] Not Available Not Available 02/02/2025 11:31:03 01/28/20 25 01/27/2025 CBC W Auto Diffe renti al panel - Blood neutrophils [#/volume] in blood by automated count 6.62 text: 1.60 - 7.50 x10e9/ L Neutr ophil Absol red devil 6.62 1.60 - 7.50 x10E9 /L 01/27 3:52 PM CDT [facility] Not Available Not Available 02/02/2025 11:31:03 01/28/20 25 01/27/2025 CBC W Auto Diffe renti al panel - Blood lymphocytes [#/volume] in blood by automated count 3.09 text: 1.00 - 4.40 x10e9/ L Lymph ocyte Absol red devil 3.09 1.00 - 4.40 x10E9 /L 01/27 3:52 PM CDT [facility] Not Available Not Available 02/02/2025 11:31:03 01/28/20 25 01/27/2025 CBC W Auto Diffe renti al panel - Blood monocytes [#/volume] in blood by automated count 0.58 text: 0.15 - 1.00 x10e9/ L Monoc yte Absol red devil 0.58 0.15 - 1.00 x10E9 /L 01/27 3:52 PM CDT [facility] Not Available Not Available 02/02/2025 11:31:03 01/28/20 25 01/27/2025 CBC W Auto Diffe renti al panel - Blood eosinophils [#/volume] in blood 0.21 text: 0.00 - 0.60 x10e9/ L Eosin ophil Absol red devil 0.21 0.00 - 0.60 x10E9 /L 01/27 3:52 PM CDT [facility] Not Available Not Available 02/02/2025 11:31:03 01/28/20 25 01/27/2025 CBC W Auto Diffe renti al panel - Blood basophils [#/volume] in blood by automated count 0.03 text: 0.00 - 0.13 x10e9/ L Basop hil Absol red devil 0.03 0.00 - 0.13 x10E9 /L 01/27 3:52 PM CDT [facility] Not Available Not Available 02/02/2025 11:31:03 01/28/2001/27/2025 CBC W Auto Diffe isaura al panel - Blood interpretati on and review of laboratory results Abnorm al Not Available Not Available 11:31:03 01/28/20 25 01/27/2025 Basic metab olic 1999 panel - Serum or Plasm a glucose [mass/volume ] in serum or plasma 85 mg/dL low: 70mg/d Lhigh: 99mg/d L Gluco se 85 70 - 99 mg/dL 01/27 4:07 PM CDT [facility] Not Available Not Available 02/02/2025 11:31:03 01/28/20 25 01/27/2025 Basic metab olic 1999 panel - Serum or Plasm a sodium [moles/volum e] in serum or plasma 139 mmol/ L low: 136mmo l/Lhig h: 145mmo l/L Sodiu m 139 136 - 145 mmol/ L 01/27 4:07 PM CDT [facility] Not Available Not Available 02/02/2025 11:31:03 01/28/20 25 01/27/2025 Basic metab olic 1999 panel - Serum or Plasm a potassium [moles/volum e] in serum or plasma 4 mmol/ L low: 3.5mmo l/Lhig h: 5.1mmo l/L Potas sium 4.0 3.5 - 5.1 mmol/ L 01/27 4:07 PM CDT [facility] Not Available Not Available 02/02/2025 11:31:03 01/28/2001/27/2025 Basic metab olic 1999 panel - Serum or Plasm a chloride [moles/volum e] in serum or plasma 107 mmol/ L low: 98mmol /Lhigh : 107mmo l/L Chlor lobo 107 98 - 107 mmol/ L 01/27 4:07 PM CDT [facility] Not Available Not Available 02/02/2025 11:31:03 01/28/20 25 01/27/2025 Basic metab olic 1999 panel - Serum or Plasm a carbon dioxide, total [moles/volum e] in serum or plasma 24 mmol/ L low: 22mmol /Lhigh : 29mmol /L CO2 24 22 - 29 mmol/ L 01/27 4:07 PM [facility] [email or web address] Not Available Not Available 02/02/2025 11:31:03 01/28/2001/27/2025 [employer] panel - Serum or Plasm a calcium [mass/volume ] in serum or plasma 8.7 mg/dL low: 8.4mg/ dLhigh : 10.4mg /dL Calci um 8.7 8.4 - 10.4 mg/dL 01/27 4:07 PM [facility] [email or web address] [facility] Not Available Not Available 02/02/2025 11:31:03 01/28/20 25 01/27/2025 [employer] panel - Serum or Plasm a anion gap in blood by calculation 8 mmol/ L low: 6mmol/ Lhigh: 16mmol /L Anion Gap 8 6 - 16 mmol/ L 01/27 4:07 PM [facility] [email or web address] [facility] Not Available Not Available 02/02/2025 11:31:03 01/28/20 25 01/27/2025 [employer] panel - Serum or Plasm a urea nitrogen [mass/volume ] in serum or plasma 11 mg/dL low: 5.3mg/ dLhigh : 18.7mg /dL BUN 11 5.3 - 18.7 mg/dL 01/27 4:07 PM [facility] [email or web address] [facility] Not Available Not Available 02/02/2025 11:31:03 01/28/20 25 01/27/2025 [employer] panel - Serum or Plasm a creatinine [mass/volume ] in serum or plasma 0.99 mg/dL low: 0.57mg /dLhig h: 1.11mg /dL Creat inine 0.99 0.57 - 1.11 mg/dL 01/27 4:07 PM [facility] [email or web address] [facility] Not Available Not Available 02/02/2025 11:31:03 01/28/20 25 01/27/2025 [employer] panel - Serum or Plasm a glomerular filtration rate [volume rate/area] in serum, plasma or blood by creatinine-b ased formula (CKD-epi 2020)/1.73 sq M 77 text: >=90 mL/min /1.73 m2 low eGFR by CKD-E PI 77 (L) >=90 mL/mi n/1.7 3 m2 01/27 4:07 PM CDT [facility] Not Available Not Available 02/02/2025 11:31:03 01/28/20 25 01/27/2025 Basic metab olic 2000 panel - Serum or Plasm a interpretati on and review of laboratory results Abnorm al Not Available Not Available 11:31:03 01/28/2001/27/2025 Chori ogona dotro [email or web address] eta subun it [Unit s/vol ume] in Serum or Plasm a choriogonado tropin.beta subunit [units/volum e] in serum or plasma text: mIU/mL hCG Quant itati ve <2.42 mIU/m L 01/27 4:12 PM CDT [facility] Not Available Not Available 02/02/2025 11:31:03 01/28/2001/27/2025 Chori ogona dotro [email or web address] eta subun it [Unit s/vol ume] in Serum or Plasm a Unknown Analyte hCG Refere nce Range, mIU/mL : Nonpre gnant Female s 0-6.0 Perime nopaus al Female s ages 41-55* 0-7.7 Postme nopaus al Female s age >55* 0-14 Pregna nt Female s, Weeks after Last Menstr ual Period 0.2-1 week 5-50 1 - 2 weeks 50-500 2 - 3 weeks 100-50 00 3 - 4 weeks 500-10 ,000 4 - 5 weeks 1000-5 0,000 5 - 6 weeks 10,000 -100,0 00 6 - 8 weeks 15,000 -200,0 00 2 - 3 months 10,000 -100,0 00 Tropho blasti c Diseas e >100,0 00 *In higher than expect ed hCG in female s > age 40, a serum FSH >20 IU/L makes pregna ncy unlike ly. hCG Refer ence Range , mIU/m L: Nonpr egnan t Femal es 0-6.0 Perim enopa usal Femal es ages 41-55 * 0-7.7 Postm enopa usal Femal es age >55* 0-14 Pregn ant Femal es, Weeks after Last Menst rual Perio d 0.2-1 week 5-50 1 - 2 weeks 50-50 0 2 - 3 weeks 100-5 000 3 - 4 weeks 500-1 0,000 4 - 5 weeks 1000- 50,00 0 5 - 6 weeks 10,00 0-100 ,000 6 - 8 weeks 15,00 0-200 ,000 2 - 3 month s 10,00 0-100 ,000 Troph oblas tic Disea se >100, 000 *In highe r than expec tomasa hCG in femal es > age 40, a serum FSH >20 IU/L makes pregn zulema unlik candace. Not Available Not Available 02/02/2025 11:31:03 03/05/20 24 03/05/2024 CT, abdom en + pelvi s, w/ contr ast No observ [facility]ion [email or web address] [address] [place], [address], 03/10/2024 14:31:15 05/16/20 24 05/16/2024 XR, wrist No observ ation record ed. [facility] [address] [place], [address], 07/21/2024 11:12:25 05/16/20 24 05/16/2024 CT, head, w/o contr ast No observ ation record ed. [facility] [address] [place], [address], 07/21/2024 11:13:25 05/16/20 24 05/16/2024 CT, neck, soft tissu e, w/ contr ast No observ ation record ed. [facility] [address] [place], [address], 07/21/2024 11:15:40 Result Notes None recorded. Problems Name Problem SNOMED Code Status Onset Date Resolution Date Notes Provider Name and Address Organization Details Recorded Time Gastro-e sophagea l reflux disease with esophagi tis 164745395 Active 2017 Belkys Latham, ALEX [place], [place] - [facility] 11:05:48 Body mass index 40+ - severely obese 851467371 Active 2017 ALEX Tur[place] [facility] 11:05:48 Otalgia of right ear Completed 201707/14/2020 Darlene Obregon MD Attn: Accounting, [address] [facility], [place], [address], [place] [facility] 11:30:34 Pregnanc y 84031296 Completed 201709/23/2019 Morenita Julian [place] [facility] 12:27:48 Chest pain 57624787 Completed 07/14/2020 Darlene Obregon MD Attn: Accounting, [address] [place], [address], [place] [facility] 11:30:20 Eczema 56751545 Completed 07/14/2020 Darlene Obregon MD Attn: Accounting, [address] [place], [address], [place] [facility] 11:30:23 Mild intermit tent asthma 169529651 Active 2018 ALEX Turpin [place] [facility] 11:05:48 Follicul itis 99623898 Completed 201807/14/2020 Darlene Obregon MD Attn: Accounting, [address] [place], [address], [place] [facility] 11:30:25 Otitis externa 7604176 Completed 201806/09/2022 Aurelia Wheeler [place] [facility] 12:14:37 Herpes labialis 1859749 Active 2019 ALEX [place] [facility] 11:05:48 Seasonal allergy 810610196 Completed 201906/09/2022 Aurelia Wheeler [place] [facility] 12:14:56 Abdomina l pain 58882577 Completed 201907/14/2020 Darlene Obregon MD Attn: Accounting, [address] [place], [address], [place] [facility] 0 11:30:16 Mixed anxiety and depressi ve disorder 620905674 Active 2019 Belkys Latham RMEd[place] [facility] 11:05:48 Cardiac pacemake r in situ 688211847 Active 2019 Belkys Latham RMA [place] [facility] 11:05:48 Lower gastroin testinal hemorrha ge 25875809 Completed 201906/09/2022 Aurelia [place] [facility] 12:14:20 Obstruct jeffy sleep apnea syndrome 87323516 Active 2020 Belkys Latham RMEdin [place] [facility] 11:05:49 Seasonal allergic rhinitis 945210572 Active 2020 Belkys Latham R[place] [facility] 11:05:48 Obesity 090428403 Completed 202006/09/2022 Aurelia [place] [facility] 12:14:31 Acute sinusiti s 76000386 Completed 03/21/2017 Manoj Obregon MD Attn: Accounting, [address] [place], [address], [place] [facility] 14:25:09 Insomnia 570184023 Completed 06/09/2022 Aurelia [place] [facility] 12:14:17 Syncope 510026721 Completed 07/14/2020 s/p Dual chamber pacemake r 02/28---Thalia Starr /cardio Darlene Obregon MD Attn: Accounting, [address] [place], [address], [place] [facility] 11:30:47 Vitamin D deficien 49170253 Completed 202106/09/2022 Aurelia [place] [facility] 12:15:06 History of psoriasi s 956900042 Active 2021 Belkys Latham RMA [place] [facility] 11:05:48 Recurren t urinary tract infectio n 456552165 Completed 202106/09/2022 Aurelia [place] [facility] 12:14:48 Spinal stenosis of lumbar region 86927316 Active 2021 Belksy Latham RMA [place] [facility] 11:05:48 Morbid obesity 136934016 Active 2021 Belkys Latham [place] [facility] 11:05:48 Bradycar rajeev 17199219 Active 2013 Belkys Latham [place] [facility] 11:05:49 Obesity 494233027 Active 2012 Belkys Latham [place] [facility] 11:05:48 Uses contrace ption 92159729 Active 2016 Belkys Latham [place] [facility] 11:05:48 Bacteria l vaginosi s 634172674 Active 2016 Belkys Latham [place] [facility] 11:05:48 Pregnanc y 52481569 Active 2015 Belkys Latham [place] [facility] 11:05:49 Pyuria 6487805 Active 2016 Belkys Latham [place] [facility] 11:05:49 Vasovaga l syncope 919235609 Active 2011 Belkys Latham [place] [facility] 11:05:48 Seizure disorder 039032716 Active 2016 Belkys Latham [place] [facility] 11:05:48 Asystole 183365442 Active 2013 Bel[facility] [place] [facility] [place] [facility] 4 11:05:48 High risk pregnanc y 52595924 Active 2016 [facility] [place] [facility] [place] [facility] 4 11:05:49 Numbness of limbs 121345881 Active 2015 [facility] [place] [facility] [place] [facility] 4 11:05:48 Disease type AND/OR category unknown 8457709 Active 2015 [facility] [place] [facility] [place] [facility] 4 11:05:48 Syncope 548741368 Active 2013 [facility] [place] [facility] [place] [facility] 4 11:05:48 Dissocia tive convulsi ons 135248586 Active 2016 [facility] [place] [facility] [place] [facility] 4 11:05:48 Syncope and collapse 219122230 Active 2009 Belksy L[place] [facility] [place] [facility] 4 11:05:48 Hypertro phy of tonsils 57500831 Active 2021 Bel[facility] [place] [facility] [place] [facility] 4 11:05:49 Restless legs 66743280 Active 2022 Belk[facility] L[place] [facility] [place] [facility] 4 11:05:48 History of asthma 918283587 Active 2022 Belk[facility] [place] [facility] [place] [facility] 4 11:05:48 Mixed urinary incontin ence 309829388 Active 2022 [facility] [place] [facility] [place] [facility] 4 11:05:48 Prediabe gualberto 005735842 Active 2023 Marimar Arriola MD Attn: Accounting, [address] [facility], [place], [address], [place] - [facility] 4 08:50:36 Malaise and fatigue 580092166 Active 2023 Lurdes Aldrich MD Attn: Accounting, [address] [facility], [place], [address], [facility] - [facility] 4 09:37:03 External hemorrho ids 79526897 Active 2023 Lurdes Aldrich MD Attn: Accounting, [address] [facility], [place], [address], [facility] - [facility] 4 09:37:05 Postural orthosta tic tachycar rajeev syndrome 854067183 Active 2013 ALEX Turpin null, [place] - [facility] 4 11:05:48 Abdomina l pain 22571499 Completed 03/21/2017 Darlene Obregon MD Attn: Accounting, [address] [facility], [place], [place], [id number], [facility] 0 11:30:16 Nausea [id number] Completed 03/21/2017 Manoj Obregon MD Attn: Accounting, [address] [place], [address], [facility] 7 14:25:43 Insect bite - wound [id number] Completed 03/21/2017 Manoj Obregon MD Attn: Accounting, [address] [place], [address], [place] [facility] 7 14:25:26 Gastriti s [id number] Completed 06/09/2022 s/p EGD Aurelia Wheeler RN null, [place] - [facility] 2 12:13:56 Viral gastriti s [id number] Completed 03/21/2017 Manoj Obregon MD Attn: Accounting, [address] [place], [address], [facility] 7 14:25:30 Psoriasi s [id number] Active ALEX Turpin [place], [place] [facility] 4 11:05:49 Seizure disorder [id number] Completed 07/14/2020 Dr.Liu Darlene Obregon MD Attn: Accounting, [address] [place], [address], [place] [facility] 0 11:30:40 Vomiting [id number] Completed 03/21/2017 Manoj Obregon MD Attn: Accounting, [address] [place], [place], [address] [place] [address], [place] [facility] 7 14:25:39 Increase d frequenc y of urinatio n [id number] Completed 03/21/2017 Manoj Obregon MD Attn: Accounting, [address] [place], [place], [address] [place] [address], [place] [facility] 7 14:25:20 Pain in pelvis [id number] Completed 03/21/2017 Manoj Obregon MD Attn: Accounting, [address] [place], [address], [place] [facility] 7 14:25:34 Amenorrh ea [id number] Completed 03/21/2017 Manoj Obregon MD Attn: Accounting, [address] [place], [address], [place] [facility] 7 14:25:16 Problem Notes None recorded. Procedures Surgical History Date Name Laterality Status Provider Name and Address Organization Details Recorded Time 5 Pacemaker completed [place]LEX Navarro [place] [facility] 01/20/2025 10:39:37 2 Date of Last Pap Smear completed Delma Rivera RN [place] [facility] 02/09/2022 16:15:40 9 Tubal Ligation completed Maida Stark [place] [facility] 08/08/2019 10:49:31 4 Pacemaker completed Nely Castro [place] [facility] 10/19/2017 15:01:25 Imaging Results None recorded. Procedure Notes None recorded. Medical Equipment None Reported. Allergies Allergen ID Allergen Name Allergen Category Reaction Reaction Severity Criticality Documentation Date Start Date Code Code System Note Provider Name and Address Organization Details Recorded Time 198728 ampicilli n medicatio n vomiting Not available Not available 11/21/20182018 733 RxNorm Nely Castro [place], [place] - [facility] 0 10:30:49 [id number] glucosami ne medicatio n hives Not available Not available 03/09/2021 4845 RxNorm Tierney Dary, RMA [place], [place] [facility] 1 10:20:13 [id number] Rocephin medicatio n hives Not available Not available 03/09/2021 9449 RxNorm Tierney Dary, RMA [place] [facility] 1 10:21:06 [id number] carbamaze pine medicatio n hallucina tions Not available Not available 06/09/20222019 RxNorm [place] [facility] 4 11:04:31 [id number] lacosamid e medicatio n Not available Not available Not available 01/29/20232016 50075 0 RxNorm Other react ions and sever ities : 'Unkn own'. Cordell Obregon MD Attn: Soniya young,[address] [place], [address] [facility] [place] [facility] 3 14:42:25 [id number] lorazepam medicatio n itching Not available Not available 01/11/20242014 6470 RxNorm [place]LEX [place] [facility] 4 11:04:31 [id number] ceftriaxo ne medicatio n hives itching Not available Not available Not available 01/11/20242019 2193 RxNorm [place] [facility] 4 11:04:31 [id number] Medicinal product acting as adhesive (product) environme nt,medica tion itching Not available [facility] 02/06/20252022 17908 Isidoro SNOMED Sherly Ch RN [place], [place] [facility] 5 15:10:54 [id number] nitrofura ntoin medicatio n rash Not available Not available 02/06/20252024 7454 RxNorm Sherly Ch RN [place] [facility] 5 15:10:58 [id number] ondansetr on medicatio n rash moderate Not available 08/18/2015 05723 RxNorm Cordell Obregon MD Attn: Soniya young,[address] [facility], [place], [address], [place] [facility] 0 10:57:27 [id number] Ativan medicatio n rash Not available Not available 01/28/2016 01586 9 RxNorm Elva Amaral LPN [place], [place] [facility] 6 12:40:58 [id number] Paxil medicatio n rash Not available Not available 01/28/2016 72448 8 RxNorm Elva Amaral LPN [place], [place] [facility] 6 12:40:58 Medications Name Sig Start Date Stop Date Status Note LastModified by Organization Details LastModified Time cyclobenz aprine 10 mg tablet TAKE 1 TABLET BY MOUTH 3 TIMES DAILY NEEDED FOR MUSCLE SPASMS FOR UP TO 14 DAYS. 10/23 completed Not Available Not Available Not Available amoxicill in 500 mg capsule Take 1 capsule 3 times a day by oral route for 7 days. 10/05 completed Not Available Not Available Not Available buspirone 5 mg tablet Take 1 tablet twice a day by oral route as needed. 06/13 completed Not Available Not Available Not Available docosanol 10 % topical cream Apply 1 applicat ion twice a day by topical route as needed. 12/30 completed Not Available Not Available Not Available terconazo le 0.4 % vaginal cream 03/21 completed Not Available Not Available Not Available promethaz ine-DM 6.25 mg-15 mg/5 mL oral syrup TAKE 5 ML BY MOUTH EVERY 4 - 6 HOURS NEEDED FOR COUGH 01/02 completed Not Available Not Available Not Available doxycycli ne hyclate 100 mg capsule TAKE 1 CAPSULE BY MOUTH TWICE A DAY FOR 10 DAYS 10/23 completed Not Available Not Available Not Available Vitamin B-6 25 mg tablet 07/14 completed Not Available Not Available Not Available naproxen 375 mg tablet active Not Available Not Available Not Available ketoconaz ole 2 % shampoo APPLY TO WET HAIR & LEAVE ON FOR 3 MIN THEN RINSE THREE TIMES A WEEK active pt is not taking 01/20/25 Not Available Not Available Not Available clindamyc in HCl 300 mg capsule TAKE 1 (ONE) CAPSULE BY MOUTH 3 TIMES DAILY FOR 14 DAYS 01/20 completed pt is not taking 01/20/25 Not Available Not Available Not Available trazodone 50 mg tablet TAKE ONE HALF (0.5) TABLETS BY MOUTH AT BEDTIME active Not Available Not Available No t Available cetirizin e 10 mg tablet Take 1 tablet every day by oral route as needed. 12/30 completed Not Available Not Available Not Available azithromy nahomy 250 mg tablet TAKE 2 TABLETS BY MOUTH ON DAY 1, AND THEN TAKE 1 TABLET BY MOUTH ONCE A DAY ON DAY 2 THROUGH DAY 5 01/02 completed Not Available Not Available Not Available ibuprofen 800 mg tablet TAKE 1 TABLET BY MOUTH THREE TIMES A DAY NEEDED FOR PAIN 01/02 completed Not Available Not Available Not Available nystatin 100,000 unit/gram topical ointment APPLY TO THE AFFECTED AREA(S) BY TOPICAL ROUTE 2 TIMES PER DAY 04/13 completed Not Available Not Available Not Available fluconazo le 150 mg tablet TAKE 1 TABLET BY MOUTH ONE DOSE 08/18 completed Not Available Not Available Not Available ampicilli n 500 mg capsule 01/17 completed Not Available Not Available Not Available doxepin 25 mg capsule 02/04 completed Not Available Not Available Not Available levetirac etam 500 mg tablet TAKE 1 TABLET BY MOUTH TWICE A DAY 05/30 completed Not Available Not Available Not Available sumatript an 100 mg tablet TAKE ONE TABLET BY MOUTH EVERY 2 HOURS NEEDED FOR ONSET OF HEADACHE . MAX 2 TABLETS/ 24 HRS 10/23 completed Not Available Not Available Not Available hydrocodo ne 5 mg-acetam inophen 325 mg tablet TAKE 1 TABLET BY MOUTH EVERY 6 HOURS NEEDED FOR SEVERE PAIN 02/04 completed Not Available Not Available Not Available meloxicam 15 mg tablet TAKE 1 TABLET BY MOUTH ONCE DAILY 04/06 completed Not Available Not Available Not Available carbamaze pine ER 100 mg tablet,ex tended release,1 2 hr 07/14 completed Not Available Not Available Not Available phenazopy ridine 200 mg tablet 03/09 completed Not Available Not Available Not Available ondansetr on HCl 4 mg tablet TAKE 1-2 TABLETS BY MOUTH EVERY 8 HOURS NEEDED FOR NAUSEA - 1ST LINE FOR UP TO 5 DAYS. 01/29 completed Not Available Not Available Not Available famotidin e 40 mg tablet TAKE 1 TABLET BY MOUTH EVERY DAY AT NIGHT 08/21 completed Not Available Not Available Not Available prednison e 20 mg tablet TAKE 2 TABLETS BY MOUTH EVERY DAY FOR 5 DAYS active Not Available Not Available No t Available dexametha sone 6 mg tablet 10/05 completed Not Available Not Available Not Available sertralin e 100 mg tablet active Not Available Not Available Not Available clobetaso l 0.05 % topical cream APPLY CREAM TOPICALL Y TWICE DAILY 05/25 completed Not Available Not Available Not Available permethri n 5 % topical cream APPLY (THOROUG HLY MASSAGE INTO SKIN FROM HEAD TO SOLES OF FEET) BY TOPICAL ROUTE ONCE LEAVE ON FOR 10-12 HR, THEN REMOVE BY THOROUGH WASHING 05/02 completed Not Available Not Available Not Available penicilli n V potassium 500 mg tablet 03/21 completed Not Available Not Available Not Available clotrimaz ole 1 % vaginal cream 03/21 completed Not Available Not Available Not Available meclizine 12.5 mg tablet Take 12.5 mg by oral route. 08/21 completed Not Available Not Available Not Available metronida zole 500 mg tablet TAKE 1 TABLET BY MOUTH TWICE A DAY WITH MEALS FOR 7 DAYS 05/08 completed Not Available Not Available Not Available acetamino phen 300 mg-codein e 30 mg tablet Take 1 tablet every 6 hours by oral route as needed. 02/11 completed Not Available Not Available Not Available ciproflox acin 250 mg tablet TAKE 1 TABLET BY MOUTH EVERY 12 HOURS FOR 5 DAYS 04/06 completed Not Available Not Available Not Available prochlorp erazine maleate 10 mg tablet Take 1 tablet 3 times a day by oral route as needed. active Not Available Not Available No t Available acyclovir 400 mg tablet Take 1 tablet every 8 hours by oral route for 7 days. 04/13 completed Not Available Not Available Not Available doxepin 10 mg capsule TAKE 1 CAPSULE BY MOUTH EVERYDAY AT BEDTIME 02/04 completed Not Available Not Available Not Available ciproflox acin 500 mg tablet 04/13 completed Not Available Not Available Not Available omeprazol e 40 mg capsule,d elayed release TAKE 1 CAPSULE BY MOUTH EVERY DAY 01/29 completed Not Available Not Available Not Available tramadol 50 mg tablet TAKE 1 TO 2 TABLETS BY MOUTH EVERY 6 HOURS NEEDED FOR MODERATE OR MORE SEVERE PAIN 01/02 completed Not Available Not Available Not Available triamcino lone acetonide 0.1 % topical cream APPLY A THIN LAYER TO THE AFFECTED AREA(S) BY TOPICAL ROUTE 2 TIMES PER DAY 12/17 completed Not Available Not Available Not Available amoxicill in 500 mg tablet Take 1 tablet 3 times a day by oral route for 7 days. 08/19 completed Not Available Not Available Not Available lamotrigi ne 25 mg tablet Take 2 tablets twice a day by oral route for 15 days. active Not Available Not Available No t Available ketorolac 10 mg tablet TAKE 1 TABLET BY MOUTH EVERY 6 HOURS NEEDED FOR MILD OR MORE SEVERE PAIN. 01/02 completed Not Available Not Available Not Available pantopraz ole 20 mg tablet,de layed release Take 1 tablet every day by oral route. 05/02 completed GI Not Available Not Available Not Available meloxicam 7.5 mg tablet TAKE 1 TABLET BY MOUTH ONCE DAILY 03/09 completed Not Available Not Available Not Available oxycodone -acetamin ophen 5 mg-325 mg tablet 03/21 completed Not Available Not Available Not Available bupropion HCl 100 mg tablet TAKE 2 TABLETS BY MOUTH EVERY DAY IN THE MORNING 04/06 completed Not Available Not Available Not Available terbinafi ne HCl 250 mg tablet Take one tablet daily, return to lab for blood test in 1 weeks. 12/17 completed Not Available Not Available Not Available alprazola m 0.5 mg tablet psych active Not Available Not Available Not Available ofloxacin 0.3 % ear drops INSTILL 5 DROPS INTO EACH EAR TWICE DAILY FOR 7 DAYS 04/13 completed Not Available Not Available Not Available amoxicill in 875 mg tablet 01/17 completed Not Available Not Available Not Available famotidin e 20 mg tablet TAKE 1 TABLET BY MOUTH 2 TIMES DAILY NEEDED active Not Available Not Available No t Available magnesium oxide 400 mg (241.3 mg magnesium ) tablet TAKE 1 TABLET BY MOUTH TWICE A DAY active Not Available Not Available No t Available DOK 100 mg capsule 07/14 completed Not Available Not Available Not Available trazodone 100 mg tablet TAKE 1 TABLET BY MOUTH EVERY DAY AT BEDTIME NEEDED 05/30 completed Not Available Not Available Not Available ropinirol e 0.25 mg tablet TAKE 1 TABLET BY MOUTH NIGHTLY 05/02 completed Not Available Not Available Not Available dicyclomi ne 20 mg tablet TAKE 1 TABLET TWICE A DAY BY ORAL ROUTE NEEDED. 06/22 completed Not Available Not Available Not Available Kenalog 10 mg/mL suspensio n for injection 1mL of Kenalog 10mg/mL injected intrales ionally x 5 injectio ns to the posterio r scalp 10/05 completed Patient tolerate d well. Not Available Not Available Not Available Proctozon e-HC 2.5 % topical cream perineal applicato r 01/01 completed Not Available Not Available Not Available meclizine 25 mg tablet TAKE 1 TABLET BY MOUTH 3 TIMES A DAY NEEDED FOR DIZZINES S 02/04 completed Not Available Not Available Not Available benzonata te 100 mg capsule 10/05 completed Not Available Not Available Not Available bisacodyl 10 mg rectal supposito ry Insert 1 supposit ory every day by rectal route as needed. 07/14 completed Not Available Not Available Not Available cephalexi n 500 mg capsule 01/01 completed Not Available Not Available Not Available pantopraz ole 40 mg tablet,de layed release TAKE 1 TABLET BY MOUTH EVERY DAY BEFORE BREAKFAS T 01/20 completed pt is not taking 01/20/25 Not Available Not Available Not Available naproxen sodium 550 mg tablet active Not Available Not Available Not Available ferrous sulfate 325 mg (65 mg iron) tablet Take 1 tablet every day by oral route. 07/14 completed Not Available Not Available Not Available triamcino lone acetonide 0.1 % topical ointment APPLY A THIN LAYER OF OINTMENT TOPICALL Y TWICE DAILY ON SCALP 05/25 completed Not Available Not Available Not Available nystatin 100,000 unit/gram topical cream APPLY TO THE AFFECTED AREA(S) --- ARM - BY TOPICAL ROUTE 2 TIMES PER DAY 04/13 completed Not Available Not Available Not Available ranitidin e 150 mg tablet TAKE ONE TABLET BY MOUTH TWICE DAILY 10/23 completed Not Available Not Available Not Available dexametha sone 4 mg tablet TAKE 1 TABLET BY MOUTH TWICE A DAY FOR 10 DAYS 01/02 completed Not Available Not Available Not Available buspirone 10 mg tablet TAKE 1 TABLET BY MOUTH TWICE DAILY active Not Available Not Available No t Available prednison e 50 mg tablet TAKE 1 TABLET BY MOUTH EVERY DAY 10/23 completed Not Available Not Available Not Available promethaz ine 25 mg tablet TAKE 1 TABLET TWICE A DAY BY ORAL ROUTE NEEDED. 06/22 completed Not Available Not Available Not Available polymyxin B sulfate 10,000 unit-trim ethoprim 1 mg/mL eye drops 1 DROP INTO LEFT EYE EVERY 3 HOURS FOR 7 DAYS WHILE AWAKE DO NOT EXCEED 6 DOSES IN 24 HOURS 10/23 completed Not Available Not Available Not Available flecainid e 100 mg tablet TAKE 1 TABLET BY MOUTH TWICE A DAY 01/02 completed stopped Not Available Not Available Not Available diclofena c potassium 50 mg tablet TAKE 1 TABLET BY MOUTH TWICE A DAY 01/29 completed Not Available Not Available Not Available oxybutyni n chloride ER 5 mg tablet,ex tended release 24 hr TAKE 1 TABLET (5 MG TOTAL) BY MOUTH DAILY. 06/09 completed Not Available Not Available Not Available gabapenti n 300 mg capsule TAKE 1 CAPSULE BY MOUTH EVERYDAY AT BEDTIME 05/30 completed Not Available Not Available Not Available sertralin e 25 mg tablet active Not Available Not Available Not Available omeprazol e 20 mg capsule,d elayed release TAKE 1 CAPSULE BY MOUTH EVERY DAY FOR GERD 01/20 completed PRN 01/20/25 Not Available Not Available Not Available diclofena c sodium 75 mg tablet,de layed release TAKE 1 TABLET BY MOUTH EVERY DAY WITH A MEAL FOR 10 DAYS 10/05 completed Not Available Not Available Not Available folic acid 1 mg tablet 03/21 completed Not Available Not Available Not Available monteluka st 10 mg tablet Take 1 tablet every day by oral route. 04/13 completed Not Available Not Available Not Available hydroxyzi ne HCl 25 mg tablet TAKE 1 TABLET BY MOUTH TWICE DAILY NEEDED FOR ITCHING 05/02 completed Not Available Not Available Not Available levetirac etam 750 mg tablet active Not Available Not Available No t Available midodrine 2.5 mg tablet TAKE 1 TABLET BY MOUTH THREE TIMES A DAY FOR 30 DAYS active pt hasn't started taking it again yet 01/20/25 Not Available Not Available Not Available gabapenti n 100 mg capsule TAKE 1 CAPSULE 3 TIMES A DAY BY ORAL ROUTE NEEDED FOR 30 DAYS, FOR NERVE PAIN. 02/06 completed Not Available Not Available Not Available metoprolo l succinate ER 25 mg tablet,ex tended release 24 hr TAKE 1 TABLET BY MOUTH EVERY DAY active Not Available Not Available No t Available triamcino lone acetonide 0.1 % lotion APPLY THIN LAYER TO POSTERIO R SCALP AT BEDTIME 3 TIMES PER WEEK 08/21 completed Not Available Not Available Not Available ibuprofen 600 mg tablet 04/13 completed Not Available Not Available Not Available calcipotr iene 0.005 % scalp solution APPLY TO AFFECTED AREA, TWICE DAILY. 10/23 completed Per Derm ?rash Not Available Not Available Not Available polyethyl sierra glycol 3350 17 gram/dose oral powder 03/21 completed Not Available Not Available Not Available methylpre dnisolone 4 mg tablets in a dose pack TAKE BY MOUTH DIRECTED ON INSIDE OF PACKAGE 01/02 completed Not Available Not Available Not Available albuterol sulfate HFA 90 mcg/actua tion aerosol inhaler INHALE 2 PUFFS BY MOUTH EVERY 6 TO 8 HOURS NEEDED active Not Available Not Available No t Available norethind elizabeth (contrace ptive) 0.35 mg tablet 07/14 completed Not Available Not Available Not Available hydroxyzi ne HCl 10 mg tablet TAKE 1 TO 2 TABLETS BY MOUTH AT BEDTIME NEEDED 01/29 completed Not Available Not Available Not Available clobetaso l 0.05 % scalp solution APPLY TO SCALP 1-2 TIMES DAILY NEEDED. 30 DAYS SUPPLY. active Not Available Not Available No t Available ondansetr on 4 mg disintegr ating tablet Place 1 tablet 4 times a day by translin gual route as needed for 14 days. 01/20 completed pt is not taking 01/20/25 Not Available Not Available Not Available fluoxetin e 20 mg capsule 20 mg by oral route. 04/13 completed Not Available Not Available Not Available fluticaso ne propionat e 50 mcg/actua tion nasal spray,fidelia pension SPRAY 2 SPRAYS INTO EACH NOSTRIL EVERY DAY 01/20 completed pt is not taking 01/20/25 Not Available Not Available Not Available betametha sone dipropion ate 0.05 % lotion 11/09 completed Not Available Not Available Not Available sertralin e 50 mg tablet Take 1 tablet every day by oral route psych at [facility] for 30 days. 03/21 completed Not Available Not Available Not Available loratadin e 10 mg tablet TAKE 1 TABLET BY MOUTH ONCE DAILY NEEDED 05/02 completed Not Available Not Available Not Available risperido ne 0.5 mg tablet TAKE 1 TABLET BY MOUTH TWICE A DAY 02/01 completed Not Available Not Available Not Available naproxen 500 mg tablet TAKE 1 TABLET BY MOUTH TWICE A DAY NEEDED FOR MILD OR MORE SEVERE PAIN 10/23 completed Not Available Not Available Not Available amoxicill in 875 mg-potass ium clavulana te 125 mg tablet TAKE 1 TABLET BY MOUTH TWICE DAILY FOR 10 DAYS 01/02 completed Not Available Not Available Not Available amoxicill in 500 mg-potass ium clavulana te 125 mg tablet active Not Available Not Available Not Available oxycodone 5 mg tablet TAKE 1 TABLET BY MOUTH EVERY 6 HOURS NEEDED 01/02 completed Not Available Not Available Not Available Bactrim DS 800 mg-160 mg tablet Take 1 tablet every 12 hours by oral route for 7 days. 2020 active Not Available Not Available Not Avai lable midodrine 10 mg tablet TAKE 1 TABLET BY MOUTH THREE TIMES A DAY BEFORE MEALS 01/02 completed Not Available Not Available Not Available bupropion HCl SR 200 mg tablet,12 hr sustained -release TAKE 1 TABLET BY MOUTH EVERY DAY 02/01 completed Not Available Not Available Not Available escitalop loli 10 mg tablet TAKE 1 TABLET BY MOUTH EVERY DAY active Not Available Not Available No t Available Sprintec (28) 0.25 mg-0.035 mg tablet 07/14 completed Not Available Not Available Not Available aripipraz ole 10 mg tablet TAKE 1 TABLET BY MOUTH EVERY DAY active Not Available Not Available No t Available aripipraz ole 15 mg tablet TAKE ONE HALF (0.5) TABLETS BY MOUTH DAILY 10/23 completed Not Available Not Available Not Available cyclobenz aprine 5 mg tablet active Not Available Not Available No t Available triamcino lone-hydr ophilic base 0.05 % topical ointment Apply 1 {applica tion} by topical route. 05/30 completed Not Available Not Available Not Available aripipraz ole 5 mg tablet TAKE 1 TABLET BY MOUTH EVERY DAY 05/30 completed Not Available Not Available Not Available Ciprodex 0.3 %-0.1 % ear drops,fidelia pension INSTILL 4 DROPS INTO AFFECTED EAR(S) TWICE DAILY FOR 7 DAYS 01/01 completed Not Available Not Available Not Available bupropion HCl XL 300 mg 24 hr tablet, extended release TAKE 1 TABLET BY MOUTH EVERY DAY active Not Available Not Available No t Available bupropion HCl XL 150 mg 24 hr tablet, extended release TAKE ONE (1) TABLET BY MOUTH WITH 300 MG TOTAL DOSE 450 MG DAILY. active Not Available Not Available No t Available topiramat e 50 mg tablet TAKE 1 TABLET BY MOUTH TWICE A DAY active Not Available Not Available No t Available nitrofura ntoin monohydra te/macroc rystals 100 mg capsule TAKE 1 CAPSULE BY MOUTH EVERY 12 HOURS FOR 5 DAYS. TAKE WITH FOOD 02/06 completed Not Available Not Available Not Available pregabali n 50 mg capsule TAKE 1 CAPSULE BY MOUTH TWICE A DAY FOR 30 DAYS 06/09 completed Not Available Not Available Not Available sodium chloride 1G BID Cardio 05/02 completed stopped Not Available Not Available Not Available sodium chloride 1,000 mg soluble tablet TAKE 1 TABLET BY MOUTH THREE TIMES A DAY 01/20 completed pt is not taking 01/20/25 Not Available Not Available Not Available levetirac etam 1,000 mg tablet TAKE 1 TABLET BY MOUTH TWICE A DAY 10/23 completed Not Available Not Available Not Available aripipraz ole 2 mg tablet TAKE 1 TABLET BY MOUTH EVERY DAY 08/21 completed Not Available Not Available Not Available Balziva (28) 0.4 mg-35 mcg tablet Take 1 tablet by oral route for 28 days. active Not Available Not Available No t Available Symbicort 80 mcg-4.5 mcg/actua tion HFA aerosol inhaler TAKE 2 PUFFS BY MOUTH TWICE A DAY active Not Available Not Available No t Available omeprazol e 20 mg tablet,de layed release Take 1 tablet twice a day by oral route before meals. 04/13 completed Not Available Not Available Not Available cholecalc iferol (vitamin D3) 50 mcg (2,000 unit) tablet TAKE 1 TABLET BY MOUTH EVERY DAY 06/09 completed Not Available Not Available Not Available Vimpat 50 mg tablet active Not Available Not Available No t Available sodium chloride- potassium chloride 287 mg-180 mg-15 mg tablet 08/21 completed Not Available Not Available Not Available Mucus Relief ER 600 mg tablet, extended release 02/01 completed Not Available Not Available Not Available 28 mg iron-800 mcg tablet 03/21 completed Not Available Not Available Not Available Onfi 10 mg tablet 03/21 completed Not Available Not Available Not Available Dymista 137 mcg-50 mcg/spray nasal spray 12/30 completed Not Available Not Available Not Available Vitamins Plus Low Iron 27 mg iron-1 mg tablet 07/14 completed Not Available Not Available Not Available ivabradin e 5 mg tablet Take by oral route for 90 days. active Not Available Not Available No t Available Chlorasep tic Max Sore Throat 1.5 %-33 % mucosal spray Take 1 spray every 3 hours by mucous route as needed. 01/01 completed Not Available Not Available Not Available Afluria 2920-2340 (PF) 45 mcg (15 mcg x 3)/0.5 mL IM syringe active Not Available Not Available Not Available naloxone 4 mg/actuat ion nasal spray PLEASE SEE ATTACHED FOR DETAILED DIRECTIO NS 08/21 completed Not Available Not Available Not Available Vitals Date Recorded Body height Body mass index (BMI) Body weight Body temperature Heart rate Respiratory rate Systolic blood pressure Diastolic blood pressure Provider Name and Address Organization Details Last Updated DateTime 5 160.02 cm 55.6 kg/m2 618629 g 97.3 [degF] 68 /min 18 /min 104 mm[Hg] 61 mm[Hg] Lydia Pineda MA [place] [facility] 5 10:32:16 Date Recorded Body height Body mass index (BMI) Body weight Respiratory rate Body temperature Oxygen saturation Oxygen saturation in Arterial blood by Pulse oximetry Heart rate Systolic blood pressure Diastolic blood pressure Provider Name and Address Organization Details Last Updated DateTime 5 160.02 cm 55.8 kg/m2 665423. 61 g 20 /min 97.8 [degF] 95 % 95 % 66 /min 106 mm[Hg] 72 mm[Hg] ALEX Navarro [facility] 5 10:43:14 Date Recorded Body height Body mass index (BMI) Body weight Body temperature Respiratory rate Oxygen saturation Oxygen saturation in Arterial blood by Pulse oximetry Heart rate Systolic blood pressure Diastolic blood pressure Provider Name and Address Organization Details Last Updated DateTime 4 160.02 cm 54.3 kg/m2 783441. 02 g 97.5 [degF] 18 /min 98 % 98 % 94 /min 132 mm[Hg] 81 mm[Hg] Eda Roper [place] - [facility] 4 14:16:04 Date Recorded Body height Body mass index (BMI) Body weight Heart rate Oxygen saturation Oxygen saturation in Arterial blood by Pulse oximetry Systolic blood pressure Diastolic blood pressure Provider Name and Address Organization Details Last Updated DateTime 5 160.02 cm 55.1 kg/m2 932168. 23 g 91 /min 97 % 97 % 92 mm[Hg] 60 mm[Hg] Sherly Ch RN [facility] 5 15:09:40 Date Recorded Body height Body mass index (BMI) Body weight Respiratory rate Body temperature Oxygen saturation Oxygen saturation in Arterial blood by Pulse oximetry Heart rate Systolic blood pressure Diastolic blood pressure Provider Name and Address Organization Details Last Updated DateTime 4 160.02 cm 54.4 kg/m2 313663. 58 g 16 /min 98.2 [degF] 98 % 98 % 85 /min 123 mm[Hg] 80 mm[Hg] ALEX Navarro [place] - [facility] 4 17:23:46 Social History Question Answer Notes LastModified by Organizat ion Details LastModified Time Tobacco Smoking Status Never Smoker [place], [place] [facility] 08/12/2014 10:11:45 Do You Have An Advance Directive? No Information not available 12/30/2020 Are You Blind Or Do You Have Difficulty Seeing? No Glasses Information not available 12/30/2020 What Is Your Level Of Caffeine Consumption? Moderate Tea Information not available 03/21/2017 How Much Tobacco Do You Chew? None Information not available 03/21/2017 In The 14 Days Before Symptom Onset, Have You Had Close Contact With A Laboratory-confir med COVID-19 While That Case Was Ill? No Information not available 05/30/2023 In The 14 Days Before Symptom Onset, Have You Had Close Contact With A Person Who Is Under Investigation For COVID-19 While That Person Was Ill? No Information not available 05/30/2023 Have You Been To An Area Known To Be High Risk For COVID-19? No Information not available 10/14/2020 Are You Deaf Or Do You Have Serious Difficulty Hearing? Yes Sometimes Information not available 12/30/2020 What Type Of Diet Are You Following? REGULAR Information not available 03/21/2017 Which Illicit Or Recreational Drugs Have You Used? Denies Information not available 03/21/2017 Education 2 Year College Information not available 03/21/2017 What Is The Highest Grade Or Level Of School You Have Completed Or The Highest Degree You Have Received? [id number] Information not available 02/08/2021 Are There Any Guns Present In Your Home? No Information not available 12/30/2020 Hard Of Hearing Or Deaf In One Or Both Ears? No Information not available 10/14/2020 Legally Blind In One Or Both Eyes? No Information no t available 10/14/2020 Marital Status Single Informatio n not available 03/21/2017 What Was The Date Of Your Most Recent Tobacco Screening? 02/06/2025 Information not available 02/06/2025 How Many Children Do You Have? 4 Information not available 02/06/2022 Performs Monthly Self-breast Exam? Yes Information no t available 10/14/2020 What Is Your Relationship Status? Single [email or web address] Information not available 02/01/2015 Do You Use Your Seat Belt Or Car Seat Routinely? Yes Information not available 12/30/2020 Seat Belts Used Routinely Yes Information not available 10/14/2020 Smoke Alarm In Home Yes Information not available 10/14/2020 Do You Have Smoke And Carbon Monoxide Detectors In Your Home? Yes Information not available 12/30/2020 How Much Tobacco Do You Smoke? No Information not available 10/14/2020 Do You Use Sunscreen Routinely? Yes Information not available 10/14/2020 Has Tobacco Cessation Counseling Been Provided? Yes [email or web address] Information not available 01/20/2025 On What Date Was Tobacco Cessation Counseling Provided? 02/06/2025 Information not available 02/06/2025 Sex: Female Functional Status Question Answer Note LastModified by Organizat ion Details LastModified Time Do you use any illicit or recreational drugs? No Information not available 02/08/2021 Do you or have you ever used any other forms of tobacco or nicotine? No Information not available 02/08/2021 What is your level of alcohol consumption? None [email or web address] Information not available 08/12/2014 Do you or have you ever used smokeless tobacco? Never used smokeless tobacco Information not available 10/14/2020 Are you able to care for yourself? Yes Information not available 12/30/2020 What is your occupation? Unenployed applied for disability Information not available 03/21/2017 Do you or have you ever used e-cigarettes or vape? Never used electronic cigarettes Information not available 10/14/2020 What is your exercise level? Moderate Information not available 03/21/2017 Mental Status Question Answer Note LastModified by Organization D etails LastModified Time Do you feel stressed (tense, restless, nervous, or anxious, or unable to sleep at night)? [id number] Information not available 12/30/2020 Family History Relationship Description Onset Age of this Age Resolved Age Notes LastModified by Organization Details LastModified Time Unspecified Relation Heart disease Father s side [email or web address] Not available 04/24/2016 16:21:40 Unspecified Relation Essential hypertension Not available 04/2016 16:21:40 Father Cerebrovascu lar accident 49 [email or web address] Not available 02/2018 01:34:34 Father Diabetes mellitus [email or web address] Not available 02/04 14:13:43 Son Asthma [email or web address] Not available 11:15:31 Notes:02/05/24, 01/20/25 Medical History Condition Response Other Y Headaches Y Depression Y Gynecological History Statement/Question Response Abnormal Pap Y Flow Moderate Date of LMP 01/20/2025 Menses Monthly Y STIs/STDs No Date of Last Pap Smear 02/06/2022 Current Control Method Tubal Ligat ion LMP Definite Desired Control Method Sterilizati on Obstetrics History GPAL:G 3 P 3 0 0 3 Type Value Full Term 3 Living 3 Total 3 Immunizations Vaccine Type Date Status Note Provider Nam e and Address Organization Details Recorded Time Influenza, split virus, quadrivalent, PF 6 completed Not Available [facility] 09/22/2023 02:21:01 Hep B, adolescent or pediatric 7 completed Not Available [facility] 09/22/2023 02:21:01 influenza, unspecified formulation 8 completed Not Available [facility] 09/22/2023 02:21:01 Tdap 9 completed Not Available [facility] 09/22/2023 02:21:01 Hep B, adolescent or pediatric 6 completed Not Available [facility] 09/22/2023 02:21:01 influenza, unspecified formulation 6 completed Not Available [facility] 09/22/2023 02:21:01 Hep A, ped/adol, 2 dose 6 completed [facility] 02:21:01 Hep B, adolescent or pediatric 07/09/199 7 completed Not Available [facility] 09/22/2023 02:21:01 Influenza, split virus, quadrivalent, PF 2 completed ALEX Turpin null, [facility] 01/11/2024 11:05:10 Influenza, split virus, quadrivalent, preservative 4 completed Ga Armando RN null, [facility] 10/23/2023 11:54:20 Past Encounters Encounter ID Performer Location Encounter Start Date Encounter Closed Date Diagnosis/Indication Diagnosis SNOMED-CT Code Diagnosis ICD10 Code Diagnosis Note [id number] MD Jv Sanchez (Adult Med) [address] [place] [address] 08/12/2014 09:35:45 08/26/2014 11:28:26 Acute sinusitis 46268373 Insomnia 474079914 sleep hygiene discussed with pt Syncope 368145056 s/p pacemaker 02/28- frequency of episodes reduced following pacemaker as per pt pt is seeing cardio / at [facility] pt also on Midodrine for low Bp Adult heal th examination [id number] MD Jv Sanchez (Adult Med) [address] [place] [address] 10/21/2014 11:38:07 10/21/2014 13:46:12 Chest pain 33265883 with h/o syncopal episode ( s/p defibrilla tor and pacemaker) pt to f/u with /keon gil at [facility] Trial of Ranitidine for heart burn Eczema 97491129 on back of upper neck Moisturize r and steroid cream [id number] MD Jv Sanchez (Adult Med) [address] [place] [address] 12/25/2014 15:28:40 12/25/2014 16:47:58 Syncope [id number] diagnosed with Postural orthostati c tachycardi a syndrome- s/p pacemaker 02/28- frequency of episodes reduced following pacemaker as per pt pt is seeing cardio / at [facility] pt also on Midodrine for low Bp CT chest -neg for PE pt still having syncopal episode--- will refer to neuro for evaluation for SZ- pt is not driving Anxiety 28655423 pt is seeing psych [id number] Miguelangel Restrepo MD [facility] ([facility]) [address] [facility] [address] [place] [address] 02/04/2015 15:46:55 02/04/2015 16:27:12 Gynecologic examination 66192033 [id number] [facility] [address] [facility] [place] [address] 03/18/2015 15:58:36 03/18/2015 17:46:48 Abdominal pain 97766034 Possible gastritis Urine dipstick and preg test-neg Nausea 165238809 preg test-neg Insect bite - wound 223483640 on L/fore arm-erythe ma with itching without any bacterial infection [id number] MD Jv Sanchez (Adult Med) [address] [facility] [place] [address] 05/13/2015 11:25:54 05/13/2015 12:18:21 Syncope 584982330 diagnosed with Postural orthostati c tachycardi a syndrome- s/p pacemaker 02/28- frequency of episodes reduced following pacemaker as per pt pt is seeing cardio / at [facility] pt also on Midodrine for low Bp CT chest -neg for PE Anxiety 57681321 pt is seeing psych History of multiple allergies 412647844 Seizure disorder 968188052 pt is seeing neuro- iu- on Keppra [id number] Aurelia Jhaveri, [facility] (Adult Med) [address] [place] [address] 08/13/2015 14:15:28 08/13/2015 15:28:53 Viral gastritis 259855975 A08.39 Patient to have a bland diet. Advance over the next 2-3 days as tolerated. Drink pleanty of water- avoid dehydratio n. Zofram prn sent to pharmacy. If symptoms worse, call for follow up next week. [id number] MD Estrellita Sanchezhalto (Adult Med) [address] [place] [address] 09/20/2015 10:48:09 09/21/2015 15:11:48 Psoriasis 3763099 L40.8 of scalp Seizure disorder 8593973 02 G40.909 pt is seeing neuro- iu- on Keppra Syncope 473139140 R55 diagnosed with Postural orthostati c tachycardi a syndrome- s/p pacemaker 02/28- frequency of episodes reduced following pacemaker as per pt pt is seeing cardio / at [facility] pt also on Midodrine for low Bp CT chest -neg for PE Anxiety 18219478 F41.1 pt is seeing psych [id number] [facility] [address] [place] [address] 11/30/2015 15:51:35 12/01/2015 16:41:25 Vomiting 460831698 R11.10 Etiology unclear. Could be gastritis. Urine test is negative. Advised patient to continue Pantoprazo le. Prochlorpe razine 10 mg po tid prn.Side effects explained to the patient. Follow up if the vomitings not improving. Increased frequency of urination 859721387 R35.0 Urine dipstick showed trace Leukocyte. Send the urine for U/S. [id number] [facility] [address] [place] [address] 01/28/2016 12:15:20 01/31/2016 11:41:58 Abdominal pain 52293116 R10.9 Possible gastritis Urine dipstick and preg test-neg avoid NSAID [id number] MD Adelia Kirby [facility] ([place] [address]) [address] [facility] [place] [address] 02/07/2016 15:58:27 02/08/2016 08:49:23 Gynecologic examination 59967045 Z01.419 [id number] [facility] [address] [place] [address] 03/13/2016 16:01:40 03/14/2016 10:17:53 Abdominal pain 94269754 R10.9 with h/o gastritis in the past avoid NSAID Try PPI Refer to GI as well [id number] MD Adelia Kirby [facility] ([place] [address]) [address] [facility] [place] [address] 04/24/2016 16:13:58 04/24/2016 16:51:24 Pain in pelvis 68205233 R10.2 [id number] [facility] [address] [place] [address] 03/21/2017 14:05:22 03/22/2017 16:25:58 Psoriasis 1176125 L40.8 of scalp Mild inter mittent asthma 681292756 J45.20 uses Albuterol prn Anxiety 35962690 F41.1 pt is seeing [facility] Obesity 172788378 E66.9 [id number] MD Adelia WOODARD (Fam Med) [address] [place] [address] 10/19/2017 13:51:19 10/23/2017 09:45:10 Psoriasis 1663268 L40.9 > 10 years, Improves with continuous topical Triamcinol one. Occipital, patch with erythemato us base, desquamati ng overlying layer, > 5 x 5 cm. No hair loss. Pt does not have similar rash anywhere else in the body. Itch. Psoriasis vs. Tinea capitus vs. Seborrheic dermatitis vs. Autoimmune dermatitis . Pt has not tried antifungal s in the past. Discussed with patient, we can have a trial of antifungal PO and topical before we look for psoriasis topical that is usually not covered. We will need to monitor her liver function while on it. Hydroxyzin e for itchiness/ sleep. Seizure disorder 1111105 02 G40.909 Followed by Neuro. Sees Dr. Lauren Syncope 218872922 R55 error Body mass index 40+ - severely obese 705218683 Z68.42 Requesting Bariatric referral. Gastro-eso phageal reflux disease with esophagitis 603706534 K21.0 Hx of ulcers. EGD at [facility] (nursing to obtain records). Ranitidine with partial relief. Switch to PPI - OTC if not covered. Denies GI bleed/Epig astric pain. Consider H pylori. Postural o rthostatic tachycardia syndrome 787358935 I95.1 s/p pacemaker. Need new cardiologi sts due to changes of insurance. On Midodrine. [id number] MD Adelia WOODARD (Fam Med) [address] [place] [address] 12/14/2017 16:23:56 12/18/2017 10:24:22 Otalgia of right ear 5283373134 454771 H92.01 Finished Amoxicilli n. Ears are wnl. Trial of Flonase. Psoriasis 7044038 L40.9 10/2017: > 10 years, Improves with continuous topical Triamcinol one. Occipital, patch with erythemato us base, desquamati ng overlying layer, > 5 x 5 cm. No hair loss. Pt does not have similar rash anywhere else in the body. Itch. Psoriasis vs. Tinea capitus vs. Seborrheic dermatitis vs. Autoimmune dermatitis . Pt has not tried antifungal s in the past. Discussed with patient, we can have a trial of antifungal PO and topical before we look for psoriasis topical that is usually not covered. We will need to monitor her liver function while on it. Hydroxyzin e for itchiness/ sleep. 11/2017: terbinafin e didn't work. Trial of Triamcinol one ointment. [id number] MD Adelia Kirby 14 OB [address] [facility] [place] [address] 06/26/2018 10:59:33 06/27/2018 13:53:58 Normal 55603605 Z34.82 Hyperemesi s gravidarum 65474578 O21.0 Postural o rthostatic tachycardia syndrome 389651872 I95.1 History of sick sinus syndrome 5373908054 48588 Z86.79 [id number] MD Adelia Kirby 14 OB [address] [facility] [place] [address] 07/19/2018 14:31:17 07/22/2018 14:35:12 Normal 50381889 Z34.82 [id number] MD Adelia WOODARD 14 IM [address] [facility] [place] [address] 01/17/2019 09:50:03 02/14/2019 18:33:28 Psoriasis 0488410 L40.9 10/2017: > 10 years, Improves with continuous topical Triamcinol one. Occipital, patch with erythemato us base, desquamati ng overlying layer, > 5 x 5 cm. No hair loss. Pt does not have similar rash anywhere else in the body. Itch. Psoriasis vs. Tinea capitus vs. Seborrheic dermatitis vs. Autoimmune dermatitis . Pt has not tried antifungal s in the past. Discussed with patient, we can have a trial of antifungal PO and topical before we look for psoriasis topical that is usually not covered. We will need to monitor her liver function while on it. Hydroxyzin e for itchiness/ sleep. 11/2017: terbinafin e didn't work. Trial of Triamcinol one ointment.0 01/2019:rig ht axilla - flat, no blood nowscalp - two irregular shaped doomwas , didn't go to Derm. Re-refer to Derm. Syncope 615071175 R55 s/p Dual chamber pacemaker 02/28- /cardio Sick sinus, POTS f/u with Cardiology Mild inter mittent asthma 360116716 J45.20 stable on albuterol inhaler, rarely uses Postural o rthostatic tachycardia syndrome 915710927 I95.1 s/p Dual chamber pacemaker 02/28---Dr. Ballard /cardio Sick sinus, POTS f/u with Cardiology Seizure disorder 3136790 02 G40.909 Seizure like symptoms Followed by Neuro. Sees Dr. Quintero POTS and depression , not seizure. Anxiety 98967720 F41.9 On depression meds, do well. Psychiatry Dr. Alexander, will f/u soon [id number] MD Adelia Kirby 14 OB [address] [facility] [place] [address] 03/10/2019 16:15:04 03/11/2019 09:17:43 Mastodynia of left breast 3030081896 6740512 N64.4 [id number] MD Adelia Kirby 14 OB [address] [facility] [place] [address] 04/18/2019 10:52:32 04/21/2019 09:29:48 Contraception care management 026121469 Z30.9 Sterilizat ion requested 710265583 Z30.2 [id number] MD Adelia WOODARD 14 IM [address] [facility] [place] [address] 04/25/2019 11:55:19 04/28/2019 09:05:53 Folliculitis 86911234 L73.9 2mo. Right arm - a patch flexor surface. Itch. Tried topical steroid. Topical antibiotic s first. Then nystatin cream. Otitis externa 4541283 H 60.90 Very mild - right ear. But very tender per pt. Ciprodex drop. [id number] MD Adelia Kirby 14 OB [address] [facility] [place] [address] 08/08/2019 09:53:23 08/11/2019 09:36:08 Postoperative visit 051133854 Z09 [id number] MD Adelia Kirby 14 OB [address] [facility] [place] [address] 11/21/2019 11:07:09 11/24/2019 09:22:34 Vaginal discharge 351519882 N89.8 [id number] MD Adelia WOODARD 14 IM [address] [facility] [place] [address] 01/02/2020 09:13:31 01/06/2020 12:49:49 Herpes labialis 3267782 B00.1 Corner of mouth. Was bleeding. Did have cold sore > 10 years ago. 3 weeks now. Not healing. Try acyclovir and Docosanol cream. Consider antibiotic s/antifung al if not better. [id number] MD Adelia WOODARD 14 IM [address] [facility] [place] [address] 02/12/2020 08:30:12 02/13/2020 06:29:01 Seasonal allergy 754336371 J30.2 was tested covid negative. Still lots drainage. Did have fever.Try antihistam ine spray, singulair. If not better, Amoxicilli n then steroid. Mild inter mittent asthma 418328548 J45.20 stable on albuterol inhaler, rarely uses Psoriasis 9873653 L40.9 10/2017: > 10 years, Improves with continuous topical Triamcinol one. Occipital, patch with erythemato us base, desquamati ng overlying layer, > 5 x 5 cm. No hair loss. Pt does not have similar rash anywhere else in the body. Itch. Psoriasis vs. Tinea capitus vs. Seborrheic dermatitis vs. Autoimmune dermatitis . Pt has not tried antifungal s in the past. Discussed with patient, we can have a trial of antifungal PO and topical before we look for psoriasis topical that is usually not covered. We will need to monitor her liver function while on it. Hydroxyzin e for itchiness/ sleep. 11/2017: terbinafin e didn't work. Trial of Triamcinol one ointment.0 01/2019:rig ht axilla - flat, no blood nowscalp - two irregular shaped doomwas , didn't go to Derm. Re-refer to Derm. [id number] MD Adelia Lepe 14 IM [address] [facility] [place] [address] 07/14/2020 08:05:34 07/15/2020 13:10:32 Mild intermittent asthma 568559712 J45.20 On albuterol MDI PRN Seasonal allergy 0450985 04 J30.2 Empiricall y try loratadine .Avoid known allergens Postural o rthostatic tachycardia syndrome 897144709 I95.1 And SSS, pacemaker in situUnder care by Cardioon NaCl, midodrine , meclizine Mixed anxi ety and depressive disorder 124520207 F41.8 Under care by Psychiatri st Obstructiv e sleep apnea syndrome 10624587 G47.33 Recently diagnosed, to be on CPAP 10cm yet to be delivered, Prefer a closeby specialist Cardiac pa cemaker in situ 843776918 Z95.0 Since 2013S/p SSS Long-term drug therapy 613144959 Z79.899 Lower gastrointestinal hemorrhage 16569559 K92.2 Under care by , investigat ing to r/o diverticul ar disease vs ? internal hemorrhoid [id number] MD Adelia Lepe 14 IM [address] [facility] [place] [address] 08/20/2020 10:12:43 08/23/2020 08:20:27 Acute upper respiratory infection 51509215 J06.9 Hydrate well. Use humidifier Take medication as prescribed , If getting worse come in / go to ERcetirizi ne sent [id number] MD Adelia Lepe 14 IM [address] [facility] [place] [address] 10/05/2020 14:25:10 10/06/2020 18:24:14 Diarrhea 67161902 R19.7 mostly wateryIBS vs stress relatedhyd rate wellEat easily digestible diet- rice/soupT kita dicyclomin eD/s with tooIf getting worse go to [facility] for [facility]- screening number given Nausea 460121533 R11.0 Probably due to the aboveTake the medication .Eat easily digestible food/bever ages [id number] MD Adelia Kirby 14 OB [address] [facility] [place] [address] 10/14/2020 15:55:23 10/15/2020 13:21:06 Gynecologic examination 10975598 Z01.638 [id number] MD Adelia Lepe 14 IM [address] [facility] [place] [address] 12/30/2020 08:37:07 01/03/2021 10:55:12 Mild intermittent asthma 012601870 J45.20 On albuterol MDI PRN Mixed anxi ety and depressive disorder 646555075 F41.8 Under care by Psychiatri st Postural o rthostatic tachycardia syndrome 588957846 I95.1 And SSS, pacemaker in situ Under care by Cardio on NaCl, midodrine , meclizine 12/30/20 Did see cardio recently, started on met succinate 25mg daily + liberalise sodium intake. Cardiac pa cemaker in situ 480371641 Z95.0 Since 2013S/p SSS Psoriasis 2200223 L40.9 in the hairline neck area wants refill on triamcinal one and referral to dermatolog ist Obstructiv e sleep apnea syndrome 80936311 G47.33 Under care by , on 10 cm CPAP Seasonal a llergic rhinitis 947144084 J30.2 acting up take loratadine Obesity 465717584 E66.9 Recommend to loose weight with diet control and exercise. Wants referral to Bariatric team Long-term drug therapy 167032909 Z79.210 [id number] MD Adelia Lepe 14 IM [address] [facility] [place] [address] 01/04/2021 08:41:32 01/06/2021 14:14:12 Pain in right foot 6432954901 75555 M79.671 R/dorsal foot area- ? tendinosis X ray Diclofenac If getting worse go to ER [id number] MD Adelia Lepe 14 IM [address] [facility] [place] [address] 02/08/2021 14:09:40 02/09/2021 10:39:08 Psoriasis 4881621 L40.9 in the hairline neck area wants refill on triamcinal one and referral to dermatolog ist 02/08/21 Yet to connect- recommend to call and f/u with the insurance triamcianl one helping Obstructiv e sleep apnea syndrome 75996800 G47.33 Under care by , on 10 cm CPAP Pruritic rash 02670838 L 28.2 B/l forearm with itching. try the cream Use hydroxyzin e for itching [id number] MD Adelia Kirby 14 OB [address] [facility] [place] [address] 02/17/2021 15:56:42 02/18/2021 14:05:10 Vaginal discharge 037070502 N89.8 Acute urin jovany tract infection [id number] N39.0 [id number] MD Adelia Lepe 14 IM [address] [facility] [place] [address] 03/09/2021 08:38:25 03/14/2021 11:17:59 Mild intermittent asthma 766146208 J45.20 On albuterol MDI PRN Cardiac pa cemaker in situ 542563305 Z95.0 Since 2013S/p SSS Postural o rthostatic tachycardia syndrome 817131403 I95.1 And SSS, pacemaker in situ Under care by Cardio on NaCl, midodrine , meclizine 12/30/20 Did see cardio recently, started on met succinate 25mg daily + liberalise sodium intake.02/16 12/05Clinic ally [place] Obstructiv e sleep apnea syndrome 95915782 G47.33 Under care by , on 10 cm CPAP Gastro-eso phageal reflux disease with esophagitis 483086284 K21.00 Under care by GI Mixed anxi ety and depressive disorder 912848092 F41.8 Under care by Psychiatri st Obesity 889008102 E66.9 Recommend to loose weight with diet control and exercise. Wants referral to Bariatric team 1Pt needs to be under 'medically supervised diet'- will refer to Bhavin t- probably monthly visits for 6 months there [id number] MD Adelia Lepe 14 IM 4 [facility] [place] [address] 05/02/2021 11:16:59 05/03/2021 10:34:44 Tendency to nausea and vomiting 720726658 R11.2 with abd cramps at timesrecom mend to eat easily digestible foodD/s with your GI tooAvoid spicesFew famotidine if getting worse go to ER Suspected COVID-19 75361 4004 Z03.89 recommend her to check it out. [id number] MD Jc Greenberg FP ([facility]) [address] [place] [address] 05/25/2021 10:12:32 05/30/2021 10:21:37 Plaque psoriasis 827768395 L40.0 [id number] MD Adelia Lepe 14 4 [facility] [place] [address] 06/22/2021 08:49:17 06/23/2021 15:18:30 Muscle strain 53448462 T14.8XXD R/post thighPt woke up with itX ray LS if not done yetgabapen tin + diclofenac and refer for PTF/u in 3 wks if no better, if getting worse go to ER [id number] MD Adelia Lepe 14 IM 4 [facility] [place] [address] 07/15/2021 09:40:32 07/18/2021 15:07:04 Acute upper respiratory infection 58856615 J06.9 Hydrate well. Use humidifier Take medication as prescribed , If getting worse come in / go to ER [id number] MD Adelia Lepe 14 IM 4 [facility] [place] [address] 10/05/2021 10:38:37 10/06/2021 00:00:05 Gastro-esophageal reflux disease with esophagitis 908166323 K21.00 Under care by Tamie long PRN Mixed anxi ety and depressive disorder 766245722 F41.8 Under care by Psychiatri st Postural o rthostatic tachycardia syndrome 394327409 I95.1 And SSS, pacemaker in situ Under care by Cardio on NaCl, midodrine , meclizine 12/30/20 Did see cardio recently, started on met succinate 25mg daily + liberalise sodium intake.09/17 06/08Clinic ally [place] Mild inter mittent asthma 726628532 J45.20 On albuterol MDI PRN Cardiac pa cemaker in situ 881497543 Z95.0 Since 2014S/p SSS Long-term drug therapy 331028376 Z79.899 Body mass index 40+ - severely obese 625869967 Z68.41 Under care by Nutrijasonis t before considerat ion of gastric bypass in future Muscle strain 34920006 T 14.8XXD R/post thighPt woke up with itX ray LS if not done yetgabapen tin + diclofenac and refer for PTF/u in 3 wks if no better, if getting worse go to ER10/05/21U se to go for PT, couldn't complete all session due to covid ect, wants a new referral But pain level better, otherwise not on medication COVID-19 806811881 U07.1 Recovere, still some issue with poor taste +encoraged to get the vaccine earlier. [id number] MD Jc Greenberg FP ([facility]) [address] [place] [address] 11/09/2021 10:38:56 11/10/2021 09:36:14 Psoriasis of scalp 498503835 L40.9 Improving [id number] MD Adelia Lepe 14 IM [address] [facility] [address] [place] [address] 12/09/2021 09:19:00 12/12/2021 16:34:32 Numbness 35730227 R20.0 R/foot intermitte ntly with rest/activ ity doesn't last more than 5 min , nor issue with regular activity?C ause- neuropraxi a vs psycologic alloose weightNCSt kita gabapentin at bedtime Long-term drug therapy 776010362 Z79.459 [id number] MD Adelia Lepe 14 IM [address] [facility] [place] [address] 02/01/2022 10:47:37 02/02/2022 12:58:35 Postural orthostatic tachycardia syndrome 473055930 I95.1 And SSS, pacemaker in situ Under care by Cardio on NaCl, midodrine , meclizine Did see cardio recently, started on met succinate 25mg daily + liberalise sodium intake.Cli nically OK Cardiac pa cemaker in situ 631333904 Z95.0 Since 2014S/p SSS Gastro-eso phageal reflux disease with esophagitis 495083945 K21.00 Under care by Tamie ne PRN Mixed anxi ety and depressive disorder 876236475 F41.8 Under care by Psychiatri Mild inter mittent asthma 458677269 J45.20 On albuterol MDI PRN Vitamin D deficiency 347 58409 E55.9 Take daily D3- buy/pick remover Obstructiv e sleep apnea syndrome 10964857 G47.33 Under care by , on 10 cm CPAP Body mass index 40+ - severely obese 189353595 Z68.41 Under care by Nutritioni before considerat ion of gastric bypass in future History of psoriasis 161 902830 Z87.2 Under care by derm- on triamcinal one topical Recurrent urinary tract infection 179298635 N39.0 Hydrate wellDrink cranberry juiceTake medication as prescribed .refer to Urologist to r/o no anatomical /physiolog ical issue [id number] MD Adelia Kirby 14 OB 4 [facility] [place] [address] 02/06/2022 11:39:56 02/07/2022 08:51:19 Gynecologic examination 96396110 Z01.860 [id number] MD Adelia Lepe 14 IM 4 [facility] [place] [address] 04/06/2022 09:05:25 04/07/2022 11:26:22 Spinal stenosis of lumbar region 08443872 M48.061 W/u with CT shows :Mild degenerati ve disc disease and facet arthropath y mostadvanc ed at L5-S1 with moderate to large right lateral recess discextrus ion causing moderate to severe spinal canal stenosis andlikely impinging the descending right S1 nerve root.Rosy goldman referred to spine surgeon- appt next wkConfirm with MRIFew tramadol and lyrica Gabapentin didn't help [id number] MD Adelia Lepe 14 IM [address] [facility] [place] [address] 06/09/2022 11:26:34 06/12/2022 13:53:53 Spinal stenosis of lumbar region 06245263 M48.061 W/u with CT shows :Mild degenerati ve disc disease and facet arthropath y mostadvanc ed at L5-S1 with moderate to large right lateral recess discextrus ion causing moderate to severe spinal canal stenosis andlikely impinging the descending right S1 nerve root.Rosy goldman referred to spine surgeon- appt next wkConfirm with MRIFew tramadol and lyrica Gabapentin didn't help 2Did see Ortho @ [facility] in March who recommende d PT and MRIMRI yet to be done(has to be pacer safe)PT scheduled from 06/16/22 onwards Cardiac pa cemaker in situ 467813490 Z95.0 Since /p SSS Obstructiv e sleep apnea syndrome 71286667 G47.33 Under care by , on 10 cm CPAP, new sleep study scheduled in per the pt Postural o rthostatic tachycardia syndrome 052258477 I95.1 And SSS, pacemaker in situ Under care by Cardio on NaCl, midodrine , meclizine Did see cardio recently, started on met succinate 25mg daily + liberalise sodium intake.Cli [place]06/09/22 Has appt this afternoon with CardioOn toprol only Atypical chest pain 1025 21355 R07.89 Was evaluated at ER 06/05/22Str ess vs GERD vs uncontroll ed asthmaHas appt with her Cardio this afternoon Morbid obesity 301700041 E66.01 Recommend to loose weight with diet control and exercise. Mild inter mittent asthma 477774205 J45.20 On albuterol BEEdd symbicort as she needs more albuterol lately Anxiety 80885397 F41.9 Pt already seeing Psy and therapist (pt lost 20 people in the last 2 yrs)Add buspirone 5mg BID for now and d/s with her Psych during her next wk appt [id number] MD Adelia Lepe 14 IM 4 [facility] [place] [address] 08/21/2022 11:47:56 08/22/2022 09:27:41 Spinal stenosis of lumbar region 64706390 M48.061 W/u with CT shows :Mild degenerati ve disc disease and facet arthropath y mostadvanc ed at L5-S1 with moderate to large right lateral recess discextrus ion causing moderate to severe spinal canal stenosis andlikely impinging the descending right S1 nerve root.Rosy dy referred to spine surgeon- appt next wkConfirm with MRIFew tramadol and lyrica Gabapentin didn't helpDid see Ortho [facility] who recommende d PT and MRIMRI yet to be done(has to be pacer safe)PT scheduled from 06/16/22 onwardsEEG R/LE in December was wnl Postural o rthostatic tachycardia syndrome 748120220 I95.1 And SSS, pacemaker in situ Under care by Cardio on NaCl, midodrine , meclizine Did see cardio recently, started on met succinate 25mg daily + liberalise sodium intake.Cli nically OK06/09/22 Has appt this afternoon with CardioOn toprol only 2Did see Electrophy siologist' Started on flecainide 100mg BID + MgO 400 mg BID, awaiting EKG and f/u with the specialist in 2 wks'syncop al episodes better, but had another yesterday! Cardiac pa cemaker in situ 682192530 Z95.0 Since /p SSS Obstructiv e sleep apnea syndrome 74786732 G47.33 Under care by , on 10 cm CPAP, new sleep study scheduled in Jun per the pt Morbid obesity 455005619 E66.01 Recommend to loose weight with diet control and exercise.D id see bariatric team- needs improve swallowing aspect before ?gastric sleeve Sx. Mixed anxi ety and depressive disorder 840029370 F41.8 Under care by Psychiatri st Administra tion of influenza vaccine 38890030 Z23 Declines Syncope and collapse 309 742072 R55 Somewhat frequent, some improvemen t after flecainide on boardHer Cardio recommend f/u with Neuro, wants referral Intermitte nt dysphagia 41424501 R13.19 Per the ptHad to wash it up with each bolus with liquidHad EGD > 2 yrs ago was OK?Enlarge d tonsil per her ENT- was rxed and f/u for considerat ion of tonsillect janene per the pt Hypertroph y of tonsils 49479770 J35.1 Per the pt, under care by ENT, awaiting tonsillect janene if antibitics didn't help Strain of left trapezius muscle 7938884290 5675019 S29.012A L/side s/p fall yesterday- on naproxen per the ER, improving. [id number] MD Adelia Lepe 14 IM [address] [facility] [address] [place] [address] 01/29/2023 10:40:47 01/30/2023 14:56:17 Syncope 488315534 R55 POTS vs vasovagalP t was scheduled to see per Aug visit appt was on 09/23/22 changed to 11/21/22, was a NS now scheduled to 03/23/23 (kids were sick then) Long-term drug therapy 962242776 Z79.899 History of asthma 558970 007 Z87.09 Symbicort helping Restless legs 84745659 G 25.81 On requip 0.25mg at bedtime per out medication Carpal deborah osbaldo syndrome 48113899 G56.03 R>L sideNCSFew gabapentin Morbid obesity 574811968 E66.01 Recommend to loose weight with diet control and exercise.D id see bariatric team- needs improve swallowing aspect before ?gastric sleeve Sx. Sleep heather simon disturbance 73768405 G47.9 Ran out requip- f/u with Dr.RaiGaba jorgensen sent today for CTS-may help too. Postural o rthostatic tachycardia syndrome 959869040 I95.1 And SSS, pacemaker in situ Under care by Cardio on NaCl, midodrine , meclizine Did see cardio recently, started on met succinate 25mg daily + liberalise sodium intake.Cli nically OKDid see Electrophy siologist' Started on flecainide 100mg BID + MgO 400 mg BID, awaiting EKG and f/u with the specialist in 2 wks'syncop al episodes better, but had another yesterday! To see Cardio soon Obstructiv e sleep apnea syndrome 52093253 G47.33 Under care by , on 11 cm CPAP Cardiac pa cemaker in situ 213574484 Z95.0 Since /p SSS [id number] MD Adelia Lepe 14 IM [address] [facility] [address] [place] [address] 05/30/2023 11:07:01 06/01/2023 16:21:08 Syncope 262757951 R55 POTS vs vasovagalP t was scheduled to see per Aug visit appt was on 09/23/22 changed to 11/21/22, was a NS now scheduled to 03/23/23 (kids were sick then)Does see on Keppra 1G BIDClinica lly better Syncope and collapse 309 992415 R55 Somewhat frequent, some improvemen t after flecainide on boardHer Cardio recommend f/u with Neuro, wants referralless compared beforeHad adjusment of Psych medication s too Seizure disorder 2765882 02 G40.909 No epileptifo rm discharges noticed during video EEG 04/08/12-12/09 also later per Neuro note but responded better with keppra 500mg BID- later started by to 1G BIDless seizure' per the pt lately Mixed urin jovany incontinence 255307005 N39.46 Stress and urge incontinen ce, Under care by UrologistCristina bartlett in the process getting perineal exercise arrange @ [facility] Dizzy spells 775314367 R 42 Per the pt related to ?anxiety issue- would d/s with Psych if no better considerin g ablation per the Cardio notesSched ule f/u later this wk and probably going for ablation per the pt Cardiac pa cemaker in situ 266645168 Z95.0 Since 2013S/p SSS Obstructiv e sleep apnea syndrome 35016952 G47.33 Under care by , on 11 cm CPAP Mixed anxi ety and depressive disorder 157891793 F41.8 Under care by Psychiatri st Pain of le ft shoulder joint 5515856888 7515315 M25.512 Handy when heart beats faster-den ies chest pain- 1 wkdenies injury/fal lreproduci ble discomfort Recommende d stretching exercise, aspercreme locallyX ray Morbid obesity 211964625 E66.01 Recommend to loose weight with diet control and exercise.D id see bariatric team- needs improve swallowing aspect before ?gastric sleeve Sx.05/30/23 undergoing counseling ect-not ready for surgery Contusion of left toe 11 99023644 0943285 S90.122A L/4th- betterSome local bruise + [id number] MD Adelia Lepe [address] [place] [address] [address] [place] [address] 10/23/2023 10:21:30 10/25/2023 16:02:59 Syncope and collapse 892751742 R55 Less frequent latelyHad adjustment of Psych medication s tooNoticed since 2011EE2011 at [facility] Monae-'no epileptifo rm activity'W as Rxed by Cardio as POTS -since ablation May better from daily to 2-3 times/wk episodesNe uro stopped keppra too, only on sumatripta n and topiramate - pt not on sumatripta n it seems Obstructiv e sleep apnea syndrome 97943913 G47.33 Under care by , on 11 cm CPAP Morbid obesity 607640640 E66.01 Recommend to loose weight with diet control and exercise.p manjinder for gastric sleeve once acid reflux controlled by her life style modificati on History of asthma 009436 007 Z87.09 Symbicort helping Seborrheic dermatitis of scalp 935416285 L21.0 On ketoconazo le per the Derm History of migraine 1614 16572 Z86.69 Improving. Administra tion of influenza vaccine 61546445 Z23 no issue before [id number] MD Adelia Kirby 14 OB 4 [facility] [address] [place] [address] 01/11/2024 10:26:06 01/14/2024 10:09:57 Positive screening for depression on PHQ-9 (Patient Health Questionnaire 9) 2663017348 79183 Z13.31 Morbid obesity 571121501 E66.01 Gynecologi c examination 59182117 Z01.216 [id number] MD Adelia Fuentes 14 IM 4 [facility] [address] [place] [address] 02/05/2024 14:02:37 02/14/2024 09:29:01 Morbid obesity 204495465 E66.01 discussed lifestyle modificati ons. Gastro-eso phageal reflux disease with esophagitis 410874095 K21.00 known hx of GERD; treated previously with PPis; will provide Rx. Mild inter mittent asthma 265458563 J45.20 Pt with known hx of mild intermitte nt asthma; endorses more frequent use of albuterol since she's been without her symbicort for a while.Will refill symbicort. Postural o rthostatic tachycardia syndrome 389500089 G90.A Obtain orthostati c vitals to see if treatment is adequateCu rrently following with cardiology ; next appointmen t is February-2023.Likel y worsening of her already diagnosed POTS/SSS. Will appreciate recs from cardiology .no medication changes at this time. Prediabetes 423341980 R7 3.03 HbA1C is 5.9% today. Will recommend lifestyle changes/di etary modificati ons to see if she is able to decrease her A1C; re-measure in 3 months. will test lipid panel to see if possible hyperlipid emia. [id number] MD Adelia Sánchez 14 IM 4 [facility] [address] [place] [address] 05/08/2024 16:56:08 05/16/2024 11:43:41 External hemorrhoids 72477979 K64.4 Chronic external hemorrhoid s x5 years. Not acutely inflamed or bleeding. - referral to general surgery for definitive management - patient counselled on maintainin g water and fiber intake Malaise and fatigue 2813 78372 R53.81 General malaise with associated chest pain, LOC, palpitatio ns, SOB, headache, dizziness, nausea, increased thirst, orthopnea. Patient has pacemaker in place, was recently discharged from hospital, under care of cardiologi with upcoming appointmen t next week. Vital signs WNL with normal cardiac exam, clear lung sounds, and no leg swelling at today's appointmen t, which is reassuring . Symptoms seem to be chronic without acute cardiovasc ular instabilit y at today's visit. Would warrant evaluation in the ED if acutely worsening chest pain, SOB, or LOC. - patient advised to present to ED if she experience s acutely worsening symptoms- follow-up with cardiologi st as previously scheduled [id number] MD Adelia Plummer 14 IM 4 [facility] [address] [place] [address] 01/02/2025 10:20:06 01/21/2025 15:55:37 Postural orthostatic tachycardia syndrome 653348065 G90.A Chronic. At baseline.R equesting refill of chronic NaCl tab, metoprolol succinate ER 25mg daily & midodrine 2.5mg TIDRx as above Nausea 600564709 R11.0 s/e ABXzofran Rx Increased frequency of urination 070831153 R35.0 Pt requesting UA. UA reassuring to r/o pathology. Supportive care Obese class III 32832824 5 E66.813 BMI >50Recomme nd continued lifestyle modificati ons & exercise >150mins/w kTSH & A1c to r/o pathology History of cardiac pacemaker in situ 886787297 Z95.0 S/p repeat. Concern over skin irritation PlanManage d by cardiology .Encourage d to reach out to cardiologi performing procedure. [id number] Arnoldo Dennison MD [facility] [address] [place] [address] 02/06/2025 14:55:23 02/11/2025 12:12:01 Obese class III 611182423 E66.813 Ongoing efforts at diet/exerc ise reinforced . follows with Dr. Giang, Sleep Medicine for optimizati on of LILI. Postural o rthostatic tachycardia syndrome 357126607 G90.A Ongoing lifestyle modificati on with hydration, postural precaution s, frequent small meals, compressio n stockings. Cardiac pa cemaker in situ 308063512 Z95.0 Status post Medtronic dual-chamb er pacemaker placement with recent gen change Follows with EP at [facility]. Inappropri ate sinus tachycardia 884775135 I47.11 Initiate ivabradine 5 mg b.i.d. due to inappropri ate sinus tachycardi a with inability to tolerate beta erika. We will consider weaning beta erika once initiated on appropriat e dose of ivabradine . Supraventr icular tachycardia 6076169 I47.10 Status post ablation. Follows with EP. Orthostati c hypotension 71171616 I95.1 Hydration with at least 128 oz of water, increased sodium intake, compressio n stockings. Continue midodrine 2.5 t.i.d. for now which we can consider weaning based on home blood pressure readings after beta erika weaned off. Health Concerns Section Related Observation LastModified by Organization Detai ls LastModified Time None Recorded Concern Status LastModified by Organization Details LastModified Time None Recorded Advance Directives Directive N: Payers Encounter Date Sequence Insurance Name Policy Number Policy Max Covered Member ID Max Member ID Guarantor Name 02/05/2024 1 [facility] (MEDICAID HMO) [id number] Lizeth Velasco [id number] Lizeth E Velasco 05/08/2024 1 [facility] (MEDICAID HMO) [id number] Lizeth Velasco [id number] Lizeth E Velasco 01/02/2025 1 [facility] (MEDICAID HMO) [id number] Lizeth Velasco [id number] Lizeth E Velasco 02/06/2025 1 [facility] [place] (MEDICAID H[place]) [id number] 0003 Lizeth Velasco [id number] Lizeth E Velasco Notes Date Note Type Note Provider Name and Address Organization Details Recorded Time 02/05/2024 text/html 33 y/o F present ing with PMHx of SSS/POTS, obesity, GERD, asthma, anxiety/depression, LILI presents to the clinic for concerns of dizziness/light-headed ness duration of a few weeks. 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 She occasionally experiences tingling and numbness of the right leg that self resolves in a few minutes. 'If i stand up for too long it gets a lot worse; that's why I stopped exercising (squats and walking)'. She says she has chest pain everyday and that it's part of POTS presentation. She follows with cardiology and has a pacemaker in place; her next appointment is . She is also mentioning more frequent use of her inhaler since she has been out of her symbicort.recently started on a new medicine (topiramate) for daily headaches that can also be a possible contributor to her more frequent episodes of light-headedness/synco pe. Pt denies any fever, chills, night sweats, changes in vision, cough, dysphagia, palpitations, SOB, CVA tenderness, Abd discomfort, n/v/d/c, changes in urination frequency/dysuria, fatigue. Marimar Arriola MD Attn: Accounting,[address] [place], [address], [facility] 02/14/2024 08:51:29 05/08/2024 text/html Lizeth is a 4 2 y/o with a history of hemorrhoids, GERD, cardiac pacemaker due to SSS, psoriasis, anxiety and depression, LILI, and asthma presenting for the following: HemorrhoidsChronic external hemorrhoids x5 years, became acutely inflammed 2 weeks agoWent to urgent care and was prescribed cream, reports acute flare has cleared upHas never seen GI or surgery, requests referral for definitive management General malaise, chest painHospitalized couple weeks ago after passing out and reportedly had seizurePacemaker already in place for SSS, patient reports settings were adjusted and she immediately felt sick. 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 Denies recreational drug use, smoking, alcohol. Ashley Deleon MD Attn: Accounting,[address] [facility], [place], [address], [place] [facility] 05/14/2024 11:58:42 01/02/2025 text/html 34F h/o Postural Orthostatic Tachycardia Syndrome s/p medrtonic dual chamber pacemaker implanted at [facility] in 2013, CTI ablation for flutter/SVT in 2022, asthma, anxiety, depression presenting for hospital f/u for pacemaker malfunction. Battery replaced 12/17. Since then skin irritation. Pain glue. Bad social anxiety.Now pacemaker to last 14yrsRUQ pain. US wnl during hospitalization. Resolved since d/c.s/p doxy 5 days for urinary Sx Cardio - [facility]. Pending. Tift. Still hasn't heard from cardio.Metoprolol & midodrine & salt refills from Pt. adherent to all meds Polyuria. Denies Dm Dx. Denies Sx of hyper or hypoGlc. Ally Ng MD Attn: Accounting,[address] [facility], [place], [address], [facility] 01/20/2025 15:38:50 02/06/2025 text/html I had the pleasu re of seeing this patient as a new consultation from Dr. Harris for recommendations regarding evaluation and management of cardiac etiologies of palpitations. Patient recently underwent generator change. Since then has not had recurrence of syncope. Reports continued tachycardia with exertional fatigue on beta erika. No chest pain or pressure. Reports compliance with CPAP therapies. No recent COVID. Denies history of DVT /PE. Cardiac history/risk factors:- History of POTS, previously followed by [facility]- Reported history of sick sinus syndrome status post dual-chamber Medtronic pacemaker placement 2013, generator change November 2024, follows Dr. Orin Niño, [facility]- SVT/atrial flutter, ablation 2022- LILI on CPAP- orthostatic hypotension on midodrine. Cardiac diagnostics:Transthora cic echocardiogram November 2024: LVEF 59, normal diastology, no PHTN normal valves Arnoldo Dennison MD Attn: Accounting,[address] [facility], [place], [address], [place] - [place] 02/06/2025 16:37:35 OBGyn Episode Ob Episode Information Episode Created Date Number of Fetuses Patient Bloodtype Patient rh Status Prepregnancy Weight lbs Domestic Partner Domestic Partner Phone Father Name Delicatessen Department Manager Status 06/26/20 18 1 A Positive [facility] CLOSED Fetus Data First Name Last Name Admitted to NICU Weight (g) Sex Living Outcome Pediatric Complications Fetus ID Race Codes Race Delivery Type false 3118.44 5 F true Full Term [id number] White Vaginal Roosevelt Calculation Initial Roosevelt Date Initial Exam Date Initial Exam Provider Initial Ultrasound Date Last Menstrual Period Date Ultra Sound Weeks Gestation 12/22/2018 06/26/2018 [email or web address] 03/17/2018 0 Eighteen To Twenty Week Roosevelt Update Ultra Sound Date Fundal Height At Umbil Quickening Date Ultra Sound Latest Weeks Gestation Final Roosevelt Confirmed By Final Roosevelt Confirmed Date Final Roosevelt Date Ultra Sound Latest Days Gestation 0 12/23/19 19 0 Pre-marion Flowsheet Flowsheet Date 06/26/2018 Azul Score Blood Edema Fundus Height Fundus Units Glucose Ketones Leukocytes Nitrite Labor Signs Protein Cervic Dilation Cervic Effacement Cervic Station 14 wks 0cm 0% -4 Type Weight in lbs Pre/Post Dialysis Refused Weight 254.259374758484 BP Diastolic BP Location Tested BP Systolic BP Type 70 92 sitting Fetus Heart Rate Present A 162 Present Fetus Movement Comments Delivered last [facility] at [facility] at term.Very complicated medical history involving seizure disorder, sick sinus syndrome with pacemaker, Postural Hypotension SYndrome. Several category 3 meds.Will try to arrange [facility] transfer. Possible insurance issues. Will have back in 2 weeks to make sure we find her the right place to go. Flowsheet Date 07/19/2018 Azul Score Blood Edema Fundus Height Fundus Units Glucose Ketones Leukocytes Nitrite Labor Signs Protein Cervic Dilation Cervic Effacement Cervic Station Type Weight in lbs Pre/Post Dialysis Refused Weight 251.325944718148 BP Diastolic BP Location Tested BP Systolic BP Type 78 108 sitting Fetus Heart Rate Present A 146 Present Fetus Movement Comments Missed her 07/16 [facility] apt. - transferring care for her myriad of issues ( see above)WIll try again to arrange apprpriate visit.no new issues Menstrual History Last Menstrual Date Menses Monthly On Bcp Conception Prior Menses Frequency Hcg Plus Date Menarche Onset Age 0703/17/2018 Delivery Information Delivery Date Delivery Type Labor Anesthesia Weeks Gestation Incision Type Labor Labor Length Hrs Delivered By Post Complications Tubal Sterilization Discharge Date Comments 9 [facility] id[facility] 38.2 false false 12/12/2018 Discharge Information Feeding Method Contraceptive Method Maternal HG B and HCT Levels Bottle Ob Episode Information Episode Created Date Number of Fetuses Patient Bloodtype Patient rh Status Prepregnancy Weight lbs Domestic Partner Domestic Partner Phone Father Name Delicatessen Department Manager Status 06/26/20 18 1 CLOSED Fetus Data First Name Last Name Admitted to NICU Weight (g) Sex Living Outcome Pediatric Complications Fetus ID Race Codes Race Delivery Type 2891.64 9 M Full Term [id number] Vaginal Roosevelt Calculation Initial Roosevelt Date Initial Exam Date Initial Exam Provider Initial Ultrasound Date Last Menstrual Period Date Ultra Sound Weeks Gestation 0 Eighteen To Twenty Week Roosevelt Update Ultra Sound Date Fundal Height At Umbil Quickening Date Ultra Sound Latest Weeks Gestation Final Roosevelt Confirmed By Final Roosevelt Confirmed Date Final Roosevelt Date Ultra Sound Latest Days Gestation 0 0 Menstrual History Last Menstrual Date Menses Monthly On Bcp Conception Prior Menses Frequency Hcg Plus Date Menarche Onset Age Delivery Information Delivery Date Delivery Type Labor Anesthesia Weeks Gestation Incision Type Labor Labor Length Hrs Delivered By Post Complications Tubal Sterilization Discharge Date Comments 7 39 Induced was del. @ [facility] Discharge Information Feeding Method Contraceptive Method Maternal HG B and HCT Levels Ob Episode Information Episode Created Date Number of Fetuses Patient Bloodtype Patient rh Status Prepregnancy Weight lbs Domestic Partner Domestic Partner Phone Father Name Delicatessen Department Manager Status 03/10/20 19 1 DELETED Roosevelt Calculation Initial Roosevelt Date Initial Exam Date Initial Exam Provider Initial Ultrasound Date Last Menstrual Period Date Ultra Sound Weeks Gestation 0 Eighteen To Twenty Week Roosevelt Update Ultra Sound Date Fundal Height At Umbil Quickening Date Ultra Sound Latest Weeks Gestation Final Roosevelt Confirmed By Final Roosevelt Confirmed Date Final Roosevelt Date Ultra Sound Latest Days Gestation 0 0 Menstrual History Last Menstrual Date Menses Monthly On Bcp Conception Prior Menses Frequency Hcg Plus Date Menarche Onset Age Delivery Information Delivery Date Delivery Type Labor Anesthesia Weeks Gestation Incision Type Labor Labor Length Hrs Delivered By Post Complications Tubal Sterilization Discharge Date Comments 9 [facility] idural 38 Discharge Information Feeding Method Contraceptive Method Maternal HG B and HCT Levels Ob Episode Information Episode Created Date Number of Fetuses Patient Bloodtype Patient rh Status Prepregnancy Weight lbs Domestic Partner Domestic Partner Phone Father Name Delicatessen Department Manager Status 02/02/20 15 1 CLOSED Fetus Data First Name Last Name Admitted to NICU Weight (g) Sex Living Outcome Pediatric Complications Fetus ID Race Codes Race Delivery Type 3202.35 [phone] F Full Term Vaginal Roosevelt Calculation Initial Roosevelt Date Initial Exam Date Initial Exam Provider Initial Ultrasound Date Last Menstrual Period Date Ultra Sound Weeks Gestation 0 Eighteen To Twenty Week Roosevelt Update Ultra Sound Date Fundal Height At Umbil Quickening Date Ultra Sound Latest Weeks Gestation Final Roosevelt Confirmed By Final Roosevelt Confirmed Date Final Roosevelt Date Ultra Sound Latest Days Gestation 0 0 Menstrual History Last Menstrual Date Menses Monthly On Bcp Conception Prior Menses Frequency Hcg Plus Date Menarche Onset Age Delivery Information Delivery Date Delivery Type Labor Anesthesia Weeks Gestation Incision Type Labor Labor Length Hrs Delivered By Post Complications Tubal Sterilization Discharge Date Comments [facility] Discharge Information Feeding Method Contraceptive Method Maternal HG B and HCT Levels
--- OUTSIDE RECORDS SUMMARY | 2025-02-19 20:34 | XMS_ITS | Clinical Summary ---
Author Organization [facility] Address [address] [place] [address] Phone Care Team Providers Care Commercial Sales Manager Name Role Phone Jeremiah Aviles MD Primary Care Provider [phone] Isaias Whelan MD Unavailable Allergies Active Allergy Reactions Criticality Noted Date Comments Lorazepam Itching 08/21/2015 Carbamazepine Hallucinations 11/01/2019 Lacosamide Unknown 06/16/2017 Nitrofurantoin Rash 01/30/2025 Paroxetine Hcl Itching 08/21/2015 Ceftriaxone Hives,Itching 04/01/2020 Medications buPROPion (WELLBUTRIN) 300 MG TABLET SR 24 HR XL tablet Take 300 mg by mouth every morning. Active traZODone (DESYREL) 100 MG Tablet Take 100 mg by mouth nightly. Active Elastic Bandages & Supports (Medical Compression Stockings) Misc 2 Pieces by Does not apply route daily. 2 Each 07/20/20 22 Active omeprazole (PriLOSEC) 40 MG CAPSULE DELAYED RELEASE Take 1 Capsule by mouth daily. 30 Capsule 09/24/19 23 Active Additional Information Patient not taking.Reported on 05/21/2024 diclofenac (CATAFLAM) 50 MG Tablet Take 1 Tablet by mouth 2 times daily. 20 Tablet 01/06/20 23 Active Additional Information Patient not taking.Reported on 05/21/2024 traMADol (ULTRAM) 50 MG TabletIndicatio ns:Chest wall pain Take 1-2 Tablets by mouth every 6 hours as needed for Moderate or more severe pain. 20 Tablet 01/08/20 Active Additional Information Patient not taking.Reported on 05/21/2024 naproxen (NAPROSYN) 500 MG Tablet Take 1 Tablet by mouth 2 times daily as needed for Mild or more severe pain. 20 Tablet 09/13/20 Active Additional Information Patient not taking.Reported on 05/21/2024 Topiramate 50 MG Tablet Take 50 mg by mouth 2 times daily. Active omeprazole (PriLOSEC) 20 MG CAPSULE DELAYED RELEASE Take 1 Capsule by mouth daily. 30 Capsule 01/30/20 Active Additional Information Patient not taking.Reported on 05/21/2024 meclizine (ANTIVERT) 25 MG Tablet Take 1 Tablet by mouth 3 times daily as needed for Dizziness. 30 Tablet 01/31/20 Active Additional Information Patient not taking.Reported on 05/21/2024 albuterol 108 (90 Base) MCG/ACT Aerosol Solution INHALE 2 PUFFS BY MOUTH EVERY 6 TO 8 HOURS NEEDED Active budesonide-form oterol fumarate (SYMBICORT) 160-4.5 MCG/ACT Aerosol take 2 Puffs by inhalation. Active busPIRone (BUSPAR) 10 MG Tablet Take 1 Tablet by mouth 2 times daily. 01/07/20 24 Active clobetasol (TEMOVATE) 0.05 % Solution APPLY TO SCALP 1-2 TIMES DAILY NEEDED. 30 DAYS SUPPLY. Active escitalopram (LEXAPRO) 10 MG Tablet Take 10 mg by mouth daily. 04/19/20 24 Active magnesium oxide (MAG-OX) 400 MG Tablet Take 400 mg by mouth 2 times daily. 07/21/20 Active metoprolol Succinate (TOPROL-XL) 25 MG TABLET SR 24 HR Take 1 Tablet by mouth daily. Active ketorolac (TORADOL) 10 MG Tablet Take 1 Tablet by mouth every 6 hours as needed for Mild or more severe pain. 15 Tablet 06/11/20 24 Active tiZANidine HCl (Zanaflex) 4 MG Capsule Take 1 Capsule by mouth 3 times daily. 90 Capsule 12/09/19 25 Active traMADol (ULTRAM) 50 MG TabletIndicatio ns:Back pain Take 1-2 Tablets by mouth every 6 hours as needed for Moderate or more severe pain. 20 Tablet 12/09/19 25 Active famotidine (PEPCID) 20 MG Tablet Take 1 Tablet by mouth 2 times daily as needed (other). 30 Tablet 01/31/20 25 Active predniSONE (DELTASONE) 20 MG Tablet 2 tabs po daily x 3 days, then 1 tab po daily x 3 days, then 1/2 tab po daily x 4 days 11 Tablet 07/12/20 24 025 Discontinu ed(Therapy completed) predniSONE (DELTASONE) 20 MG Tablet Take 2 Tablets by mouth daily for 5 days. 10 Tablet 01/31/20 25 025 Active Problems Problem Noted Date Diagnosed Date Syncope 12/12/2024 Encounters Date Type Department Care Team Description 02/11/2025 Transcribe Orders [facility] [address] [place] [id number] Waylon Aragon MD Pain in right leg (Primary Dx) 01/30/2025 4:28 PM CDT - 01/30/2025 6:19 PM CDT Emergency [facility] [address] [place] [address] Delma Sethi APRN, MULTINEEDLE SHIRRER Medication reaction Discharge Disposition: Discharged to home or Selfcare 01/30/2025 Travel 01/18/2025 11:37 AM CDT - 01/18/2025 2:45 PM CDT Emergency [facility] Emergency [address] [place] [address] Miguel Angel Sims MD Keen, Christie Marie, APRN, SHIV Syncope, unspecified syncope type Discharge Disposition: Discharged to home or Selfcare 01/18/2025 Travel 01/10/2025 3:40 PM CDT - 01/10/2025 5:41 PM CDT Emergency [facility] Emergency [address] [place] [address] Samson Huffman MD Syncope, unspecified syncope type Discharge Disposition: Discharged to home or Selfcare 01/10/2025 Travel 12/12/2024 8:46 AM CDT - 12/12/2024 4:39 PM CDT Emergency [facility] Emergency [address] [place] [address] Lon Shetty DO Carmicheal, Christina Stock MD Syncope Discharge Disposition: Short Term Hospital for [facility] 12/12/2024 Travel 12/08/2024 4:32 AM CDT - 12/08/2024 6:27 AM CDT Emergency [facility] Emergency [address] [place] [address] Sedrick Quick MD Landry, Scott Lewis, MD [...] Sign Reading Time Taken Comments Blood Pressure 150/84 01/30/2025 6:10 PM CDT Pulse 92 01/30/2025 6:10 PM CDT Temperature 36.7 C (98 F) 01/30/2025 6:10 PM CDT Respiratory Rate 16 01/30/2025 6:10 PM CDT Oxygen Saturation 100% 01/30/2025 6:10 PM CDT Inhaled Oxygen Concentration - - Weight 143.3 kg (316 lb) 01/30/2025 4:30 PM CDT Height 162.6 cm (5' 4) 01/30/2025 4:30 PM CDT Body Mass Index 54.24 01/30/2025 4:30 PM CDT Plan of Treatment Upcoming Encounters Date Type Department Care Team (Late st Contact Info) Description 03/17/2025 2:15 PM CDT [facility] [address] [place] [address] Waylon Aragon MD [address] [facility] [address] [place] [address] Polo Edwards, PT [place] Discharge Disposition: Discharged to home or Selfcare Health Maintenance Due Date Last Done Comments [...] Procedure Name Priority Date/Time Associated Diagnosis Comments URINALYSIS REFLEX IF INDICATED BY ABNORMAL RESULTS STAT 01/30/2025 4:54 PM CDT POCT URINE HCG () STAT 01/30/2025 4:52 PM CDT UR TEST QUAL STAT 01/18/2025 1:12 PM [...] CDT from Last 3 Months Results * Urinalysis w/ Reflex (01/30/2025 4:54 PM CDT) Only the most recent of2 resultswithin the time period is included. SPECIFIC GRAVITY 1.005 1.003 - 1.030 01/30/2025 5:17 PM CDT [facility] URINE PH 7.0 5.0 - 9.0 01/30/2025 5:17 PM CDT [facility] WBC ESTERASE Negative Negative 01/30/2025 5:17 PM CDT [facility] NITRITE Negative Negative 01/30/2025 5:17 PM CDT [facility] PROTEIN, RANDOM URINE Negative Negative 01/30/2025 5:17 PM CDT [facility] URINE GLUCOSE, QUAL Negative Negative 01/30/2025 5:17 PM CDT [facility] URINE KETONES Negative Negative 01/30/2025 5:17 PM CDT [facility] UROBILINOGEN Normal Normal mg/dL 01/30/2025 5:17 PM CDT [facility] URINE BLOOD Negative Negative lolly/ul 01/30/2025 5:17 PM CDT [facility] URINALYSIS COLOR Yellow 01/31/20 5:17 PM CDT [facility] URINALYSIS CLARITY Clear 01/30/2025 5:17 PM CDT [facility] Urine URINE SPECIMEN / Unknown Non-Phlebotomy Collection / Unknown 01/30/2025 4:54 PM CDT 01/30/2025 5:00 PM CDT Delma Sethi APRN, MULTINEEDLE SHIRRER URINE ORDERABLES F inal Result Performing Organization Address City/[facility]/ZIP Co de Phone Number [facility] [address] [place] [address] * POCT Urine HCG () (01/30/2025 4:52 PM CDT) POC URINE Negative POC URINE CONTROL Patient Relations Director Pass Urine 01/30/2025 4:52 PM CDT Delma Sethi APRN, MULTINEEDLE SHIRRER POINT OF CARE TEST ING (MANUAL) Final Result * Ur Test Qual (01/18/2025 1:12 PM CDT) PREG TEST,MONOCLONA L Negative 01/18/2025 2:13 PM CDT [facility] Urine URINE SPECIMEN / Unknown Non-Phlebotomy Collection / Unknown 01/18/2025 1:12 PM CDT 01/18/2025 1:34 PM CDT Delma Sethi APRN, MULTINEEDLE SHIRRER URINE ORDERABLES F inal Result [facility] [address] [place] [address] * Culture, Urine (01/18/2025 1:12 PM CDT) CULTURE RESULTS KLEBSIELLA PNEUMONIAE 01/20/2025 4:15 PM CDT [facility] CULTURE RESULTS Also mixed growth of distal urethral contaminants 01/20/2025 4:15 PM CDT [facility]rine URINE SPECIMEN / Unknown Non-Phlebotomy Collection [...] II <=20 mcg/ml: Susceptible us Delma Sethi APRN, MULTINEEDLE SHIRRER MICROBIOLOGY - GEN ERAL ORDERABLES Final Result [facility] [address] [facility] [place] [address], * Urine Drug Screen (01/18/2025 1:12 PM CDT) UR AMPHETAMINE NON DETECTED NON DETECTED 01/18/2025 1:50 PM CDT [facility] Comment: FOR MEDICAL USE ONLY. CUTOFF CONCENTRATION FOR DETECTED RESULT: AMPHETAMINE: 500 NG/ML UR BENZODIAZEPINES NON DETECTED NON DETECTED 01/18/2025 1:50 PM CDT [facility] Comment: FOR MEDICAL USE ONLY. CUTOFF CONCENTRATION FOR DETECTED RESULT: BENZODIAZAPINE: 200 NG/ML UR COCAINE METABOLITE NON DETECTED NON DETECTED 01/18/2025 1:50 PM CDT [facility] Comment: FOR MEDICAL USE ONLY. CUTOFF CONCENTRATION FOR DETECTED RESULT: COCAINE: 150 NG/ML UR OPIATES NON DETECTED NON DETECTED 01/18/2025 1:50 PM CDT [facility] Comment: FOR MEDICAL USE ONLY. CUTOFF CONCENTRATION FOR DETECTED RESULT: OPIATES: 300 NG/ML UR PHENCYCLIDINE NON DETECTED NON DETECTED 01/18/2025 1:50 PM CDT [facility] Comment: FOR MEDICAL USE ONLY. CUTOFF CONCENTRATION FOR DETECTED RESULT: PCP: 25 NG/ML UR CANNABINOID NON DETECTED NON DETECTED 01/18/2025 1:50 PM CDT [facility] Comment: FOR MEDICAL USE ONLY. CUTOFF CONCENTRATION FOR DETECTED RESULT: THC (MARIJUANA): 50 NG/ML UR BARBITURATE NON DETECTED NON DETECTED 01/18/2025 1:50 PM CDT [facility] Comment: FOR MEDICAL USE ONLY. CUTOFF CONCENTRATION FOR DETECTED RESULT: BARBITUATES: 200 NG/ML UR FENTANYL NON DETECTED NON DETECTED 01/18/2025 1:50 PM CDT [facility] Comment: FOR MEDICAL USE ONLY. CUTOFF CONCENTRATION FOR DETECTED RESULT: FENTANYL: 1.0 NG/ML Urine Non-Phlebotomy Collection / Unknown 01/18/2025 1:12 PM CDT 01/18/2025 1:36 PM CDT us Delma Sethi TOP LOADER, MULTINEEDLE SHIRRER URINE ORDERABLES F inal Result [facility] [address] [place] [address] * TROPONIN I, HIGH SENSITIVITY (HSTRP) (01/18/2025 11:45 AM CDT) Only the most recent of3 resultswithin the time period is included. Pathologist [facility] TROPONIN I, HIGH SENSITIVITY- LOAIZA <3 <=14 ng/L 01/18/2025 12:50 PM CDT [facility] Comment: High-sensitivity troponin I results are reported in ng/L making the result appear to be 1,000 times higher than the contemporary troponin I value which is reported in ng/ml. Results from [place]. Blood Venipuncture / Unknown 01/18/2025 11:45 AM CDT 01/18/2025 12:13 PM CDT us Delma Sethi APRN, MULTINEEDLE SHIRRER CHEMISTRY ORDERABL ES Final Result [facility] [address] [place] [address] * CBC with Auto Differential (01/18/2025 11:45 AM CDT) Only the most recent of2 resultswithin the time period is included. WBC 8.24 4.00 - 12.00 10(3)/mcL 01/18/2025 12:16 PM CDT [facility] RBC 4.23 3.80 - 5.30 10(6)/mcL 01/18/2025 12:16 PM CDT [facility] HEMOGLOBIN (HGB) 12.1 12.0 - 15.8 g/dL 01/18/2025 12:16 PM CDT [facility] HEMATOCRIT (HCT) 38.8 36.0 - 47.0 % 01/18/2025 12:16 PM CDT [facility] MCV 91.7 82.0 - 96.0 fL 01/18/2025 12:16 PM CDT [facility] MCH 28.6 26.0 - 34.0 pg 01/18/2025 12:16 PM CDT [facility] MCHC 31.2 31.0 - 36.0 g/dL 01/18/2025 12:16 PM CDT [facility] PLATELET COUNT 265 140 - 440 10(3)/mcL 01/18/2025 12:16 PM CDT [facility] RDW 13.4 11.8 - 15.5 % 01/18/2025 12:16 PM CDT [facility] MPV 10.7 9.7 - 12.4 fL 01/18/2025 12:16 PM CDT [facility] NEUTROPHILS 69.2 47.0 - 73.0 % 01/18/2025 12:16 PM CDT [facility] LYMPHOCYTES 24.2 18.0 - 42.0 % 01/18/2025 12:16 PM CDT [facility] MONOCYTES 4.5 4.0 - 12.0 % 01/18/2025 12:16 PM CDT [facility] EOSINOPHILS 1.9 0.0 - 5.0 % 01/18/2025 12:16 PM CDT [facility] BASOPHILS 0.2 0.0 - 1.0 % 01/18/2025 12:16 PM CDT [facility] ABSOLUTE NEUTROPHILS 5.70 1.60 - 7.70 10(3)/[facility] 01/18/2025 12:16 PM CDT [facility] ABSOLUTE LYMPHOCYTES 1.99 1.30 - 3.20 10(3)/mcL 01/18/2025 12:16 PM CDT [facility] ABSOLUTE MONOCYTES 0.37 0.20 - 1.00 10(3)/mcL 01/18/2025 12:16 PM CDT [facility] ABSOLUTE EOSINOPHIL 0.16 0.00 - 0.40 10(3)/[facility] 01/18/2025 12:16 PM CDT [facility] ABSOLUTE BASOPHILS 0.02 0.00 - 0.10 10(3)/[facility] 01/18/2025 12:16 PM CDT [facility] NRBC PER 100 WBC 0 01/19/20 12:16 PM CDT [facility] Blood Venipuncture / Unknown 01/18/2025 11:45 AM CDT 01/18/2025 12:13 PM CDT us Delma Sethi TOP LOADER, MULTINEEDLE SHIRRER HEMATOLOGY ORDERAB LES Final Result [facility] [address] [place] [address] * (ABNORMAL) CMP (01/18/2025 11:45 AM CDT) Only the most recent of2 resultswithin the time period is included. SODIUM 141 136 - 145 mmol/L 01/18/2025 12:45 PM CDT [facility] POTASSIUM 3.9 3.5 - 5.1 mmol/L 01/18/2025 12:45 PM CDT [facility] CHLORIDE 108(H) 98 - 107 mmol/L 01/18/2025 12:45 PM CDT [facility] CO2, VENOUS 24 22 - 30 mmol/L 01/18/2025 12:45 PM CDT [facility] ANION GAP 12.9 <18.0 mmol/L 01/18/2025 12:45 PM CDT [facility] GLUCOSE 102(H) 70 - 99 mg/dL 01/18/2025 12:45 PM CDT [facility] BUN 8 5 - 18 mg/dL 01/18/2025 12:45 PM CDT [facility] CREATININE, BLOOD 0.77 0.60 - 1.00 mg/dL 01/18/2025 12:45 PM CDT [facility] BUN/CREATININE RATIO 10(L) 12 - 20 ratio 01/18/2025 12:45 PM CDT [facility] TOTAL PROTEIN 7.2 6.0 - 8.0 g/dL 01/18/2025 12:45 PM CDT [facility] ALBUMIN 3.6 3.5 - 5.0 g/dL 01/18/2025 12:45 PM CDT [facility] A/G RATIO 1.0 1.0 - 2.2 01/18/2025 12:45 PM CDT [facility] CALCIUM 8.6(L) 8.7 - 10.5 mg/dL 01/18/2025 12:45 PM CDT [facility] T BILI 0.4 0.2 - 1.2 mg/dL 01/18/2025 12:45 PM CDT [facility] SGOT (AST) 21 <43 U/L 01/18/2025 12:45 PM CDT [facility] SGPT (ALT) 15 <56 U/L 01/18/2025 12:45 PM CDT [facility] ALKALINE PHOSPHATASE 90 40 - 150 U/L 01/18/2025 12:45 PM CDT [facility] GFR, ESTIMATED >60 >=60 01/18/2025 12:45 PM CDT [facility] Comment: Creatinine Clearance is the preferred criteria for selecting drug dose adjustments in renally impaired patients. The GFR is provided as additional pertinent clinical information. GFR is reported in mL/min/1.73 sq m. Calculation based on the Chronic Kidney Disease Epidemiology Collaboration (CKD- EPI) equation refit without adjustment for race. GFR, EST. >60 >=60 025 12:45 PM CDT [facility] GFR, EST. NONAFRICAN >60 >=60 01/18/2025 12:45 PM CDT [facility] Blood Venipuncture / Unknown 01/18/2025 11:45 AM CDT 01/18/2025 12:13 PM CDT us Delma Sethi APRN, MULTINEEDLE SHIRRER CHEMISTRY ORDERABL ES Final Result [facility] [address] [place] [address] * EKG 12 LEAD (01/18/2025 11:39 AM CDT) Only the most recent of3 resultswithin the time period is included. Ventricular Rate 76 BPM EXTERNAL EKG Atrial Rate 76 BPM EXTERNAL EKG P-R Interval 130 ms EXTERNAL EKG QRS Duration 138 ms EXTERNAL EKG Q-T Duration 418 ms EXTERNAL EKG QTC CALCULATION 470 ms EXTERNAL EKG P [place] 53 degrees EXTERNAL EKG R [place] 4 degrees EXTERNAL EKG T [place] 14 degrees EXTERNAL EKG 01/18/2025 11:3 9 AM CDT Impressions EXTERNAL EKG - 01/21/2025 11:56 PM CDT Normal sinus rhythm Right bundle branch block Abnormal ECG When compared with ECG of 10-JAN-2025 15:42, No significant change was found Confirmed by Carly Zavala ([id number]) on 01/21/2025 11:56:48 PM Narrative Procedure Note Carly Zavala MD - 01/21/2025 IMPRESSION: Normal sinus rhythm Right bundle branch block Abnormal ECG When compared with ECG of 10-JAN-2025 15:42, No significant change was found Confirmed by Carly Zavala ([id number]) on 01/21/2025 11:56:48 PM us Miguel Angel Sims MD IMG ECG ORDERABLES Final Result Performing Organization Address [facility] Co de Phone Number EXTERNAL EKG * RHYTHM STRIP (01/18/2025 12:00 AM CDT) Only the most recent of2 resultswithin the time period is included. 01/18/2025 us Provider Scan IMG ECG ORDERABLES Final Result Performing Organization Address [facility] Co de Phone Number RESULTING AGENCY * EKG SCAN (01/18/2025 12:00 AM CDT) Only the most recent of3 resultswithin the time period is included. 01/18/2025 us Provider Scan IMG ECG ORDERABLES Final Result Performing Organization Address City/[facility] Co de Phone Number RESULTING AGENCY * XR CHEST SINGLE VIEW PORTABLE (12/12/2024 9:57 AM CDT) Anatomical Region Laterality Modality Chest N/A Computed Radiogr aphy 12/12/2024 10:1 6 AM CDT Impressions 12/12/2024 10:18 AM CDT IMPRESSION: Low lung volumes without definite evidence of acute cardiopulmonary process. Narrative 12/12/2024 10:18 AM CDT EXAM DESCRIPTION: XR CHEST SINGLE VIEW PORTABLE REASON FOR STUDY: syncope today with loss of conciousness after pacemaker battery - patient has shortness of breath and nausea today- HX pacemaker, sick sinus syndrome, asthma, atrial ablation, Corrales,hypotension TECHNIQUE: Single frontal radiographic view(s) of the chest. COMPARISON: 08/28/2024 FINDINGS: There are low lung volumes. The heart size is accentuated by low lung volumes. Right-sided cardiac device is noted. There is no definite evidence of a pneumothorax. There is no definite evidence of a focal consolidation or pleural effusion. The osseous structures are acutely grossly stable. THIS IS AN ELECTRONICALLY VERIFIED FINAL REPORT 12/12/2024 10:16 AM - Electronically signed by Kishan Joseph D.O. PS: PS Report ID: [id number] Reading Location: [id number] Procedure Note Kishan Joseph DO - 12/12/2024 EXAM DESCRIPTION: XR CHEST SINGLE VIEW PORTABLE REASON FOR STUDY: syncope today with loss of conciousness after pacemaker battery - patient has shortness of breath and nausea today- HX pacemaker, sick sinus syndrome, asthma, atrial ablation, Corrales,hypotension TECHNIQUE: Single frontal radiographic view(s) of the chest. COMPARISON: 08/28/2024 FINDINGS: There are low lung volumes. The heart size is accentuated by low lung volumes. Right-sided cardiac device is noted. There is no definite evidence of a pneumothorax. There is no definite evidence of a focal consolidation or pleural effusion. The osseous structures are acutely grossly stable. THIS IS AN ELECTRONICALLY VERIFIED FINAL REPORT 12/12/2024 10:16 AM - Electronically signed by Kishan Joseph D.O. PS: PS Report ID: [id number] Reading Location: [id number] IMPRESSION: Low lung volumes without definite evidence of acute cardiopulmonary process. us Lon Shetty DO IMG DIAGNOSTIC ORDERABL ES Final Result * CT HEAD OR BRAIN WO CONTRAST (12/12/2024 9:08 AM CDT) Anatomical Region Laterality Modality Head N/A Computed Tomogra phy 12/12/2024 9:16 AM CDT Impressions 12/12/2024 9:18 AM CDT IMPRESSION: No acute intracranial findings. Narrative 12/12/2024 9:18 AM CDT EXAM DESCRIPTION: CT HEAD OR BRAIN WO CONTRAST REASON FOR STUDY: c/o syncopal episode, resulting in GLF and hitting head on concrete. pt c/o posterior head pain. when pt came to she vomit once. hx of corrales and pacemaker TECHNIQUE: Axial images acquired through the brain without intravenous contrast. Images stored on PACS. Automated exposure control was used as a dose optimization technique for this examination. COMPARISON: CT head 01/12/2024 FINDINGS: BRAIN: No hemorrhage, edema or mass effect. No recent infarct. Normal white matter. EXTRA-AXIAL SPACES: No fluid collections. No masses. CALVARIUM: No fracture. SINUSES/MASTOIDS: No fluid or mucosal thickening. ORBITS: No significant abnormality. OTHER: No other significant abnormality. THIS IS AN ELECTRONICALLY VERIFIED FINAL REPORT 12/12/2024 9:16 AM - Electronically signed by Ramos Norris M.D. KR: ISAEL Report ID: [id number] Reading Location: [id number] Procedure Note Ramos Norris MD - 12/12/2024 EXAM DESCRIPTION: CT HEAD OR BRAIN WO CONTRAST REASON FOR STUDY: c/o syncopal episode, resulting in GLF and hitting head on concrete. pt c/o posterior head pain. when pt came to she vomit once. hx of corrales and pacemaker TECHNIQUE: Axial images acquired through the brain without intravenous contrast. Images stored on PACS. Automated exposure control was used as a dose optimization technique for this examination. COMPARISON: CT head 01/12/2024 FINDINGS: BRAIN: No hemorrhage, edema or mass effect. No recent infarct. Normal white matter. EXTRA-AXIAL SPACES: No fluid collections. No masses. CALVARIUM: No fracture. SINUSES/MASTOIDS: No fluid or mucosal thickening. ORBITS: No significant abnormality. OTHER: No other significant abnormality. THIS IS AN ELECTRONICALLY VERIFIED FINAL REPORT 12/12/2024 9:16 AM - Electronically signed by Ramos Norris M.D. KR: KR Report ID: [id number] Reading Location: [id number] IMPRESSION: No acute intracranial findings. us Lon Shetty DO IMG CT ORDERABLES Final Result * Gold Top Tube (12/12/2024 8:57 AM CDT) Blood No Phlebotomy Charged / Unknown 12/12/2024 8:57 AM CDT 12/12/2024 9:45 AM CDT Lon Shetty DO CHEMISTRY ORDERABLES Fi nal Result [facility] [address] [place] [address] * Protime (PT or Prothrombin Time) [id number] (12/12/2024 8:57 AM CDT) PROTIME-PATIENT 12.8 11.6 - 14.8 sec 12/12/2024 10:01 AM CDT [facility] INR 1.0 0.9 - 1.2 12/12/2024 10:01 AM CDT [facility] Comment: Therapeutic Ranges INR = 2.0-3.0: Venous thromb, atrial fib, pul embolism, tissue heart valve, ami. INR = 2.5-3.5: Mechanical heart valve Critical value for INR is >/= 4.5 Blood Venipuncture / Unknown 12/12/2024 8:57 AM CDT 12/12/2024 9:43 AM CDT Lon Damon Rapoff DO HEMATOLOGY ORDERABLES F inal Result [facility] [address] [place] [address] * XR LUMBAR SPINE 2 OR 3 VIEWS (12/08/2024 5:59 AM CDT) Anatomical Region Laterality Modality Spine, L-spine N/A Digital Radiogra phy 12/08/2024 6:10 AM CDT Impressions 12/08/2024 6:13 AM CDT IMPRESSION: [id number] loss of height L5-S1 similar to previous. Narrative 12/08/2024 6:13 AM CDT EXAM DESCRIPTION: XR LUMBAR SPINE 2 OR 3 VIEWS REASON FOR STUDY: Left lower back pain x 1 day. Denies known injury.. HX: Tubal ligation TECHNIQUE: Three views COMPARISON: 10/17/2024 FINDINGS: 5 non rib-bearing lumbar type vertebra. No compression deformity or misalignment. [id number] loss of height L5-S1 similar to previous. SI joints are unremarkable. Paravertebral soft tissues are unremarkable. THIS IS AN ELECTRONICALLY VERIFIED FINAL REPORT 12/08/2024 6:10 AM - Electronically signed by Praveen Frederick M.D. RB: ERYN Report ID: [id number] Reading Location: [place] [address] Procedure Note Praveen Frederick MD - 12/08/2024 EXAM DESCRIPTION: XR LUMBAR SPINE 2 OR 3 VIEWS REASON FOR STUDY: Left lower back pain x 1 day. Denies known injury.. HX: Tubal ligation TECHNIQUE: Three views COMPARISON: 10/17/2024 FINDINGS: 5 non rib-bearing lumbar type vertebra. No compression deformity or misalignment. Uqtz-lj-[id number] loss of height L5-S1 similar to previous. SI joints are unremarkable. Paravertebral soft tissues are unremarkable. THIS IS AN ELECTRONICALLY VERIFIED FINAL REPORT 12/08/2024 6:10 AM - Electronically signed by Praveen Frederick M.D. RB: ERYN Report ID: [id number] Reading Location: [id number] IMPRESSION: Gdzx-tq-[id number] loss of height L5-S1 similar to previous. Sedrick Quick MD IMG DIAGNOSTIC ORDERABLES Final Result from Last 3 Months Insurance MEDICAID [place] Advance Directives * Full Code (Latest Code Status on File) Date Activated Date Inactivated Comments 12/12/2024 12:09 PM CPR-Full Cesia tment: FULL ARREST: Attempt Resuscitation/CPR wit intubation and mechanical ventilation. PRE-ARREST: Use entire range of life support measures to stabilize the patient. * Full Code Date Activated Date Inactivated Comments 09/18/2021 2:51 PM 09/19/2021 4:48 PM CPR-Full Treat ment: FULL ARREST: Attempt Resuscitation/CPR wit intubation and mechanical ventilation. PRE-ARREST: Use entire range of life support measures to stabilize the patient. Care Teams Commercial Sales Manager Relationship Specialty Start Date End Date Jeremiah Aviles MD [address] [place] [address] [address] [place] [address] PCP - General Family Medicine 01/31/24 Isaias Whelan MD #2 [facility] [address] [place] [address] Consulting Physician Colon and Rectal Surgery 05/16/24
[2025-02-19] MEDS: SODIUM CHLORIDE 0.9% IV 1,000 ML 999 ML IV CONT (20:36)
[2025-02-19 20:44] LABS: Basophils Percent Auto 0.3 % (0.2-1.2); Eosinophils Absolute Auto 0.3 K/mm3 (0-0.3); Hematocrit 40.5 % (37.0-47.0); Hemoglobin 12.6 g/dL (12.0-15.0); Immature Granulocyte Absolute 0.04 K/mm3 (0.00-0.031); Immature Granulocyte Percent A 0.4 % (0-0.5); Lymphocytes Absolute Auto 2.43 K/mm3 (0.9-3.2); Lymphocytes Percent Auto 23.3 % (18.3-44.2); Mean Corpuscular HGB Conc 31.1 g/dl (32-36); Mean Corpuscular Hemoglobin 28.3 pg (26-34); Mean Corpuscular Volume 90.8 fl (80-100); Mean Platelet Volume 10.1 fl (7.4-10.4); Monocytes Absolute Auto 0.5 K/mm3 (0.1-0.6); Monocytes Percent Auto 4.9 % (2.6-8.5); Neutrophils Absolute Auto 7.1 K/mm3 (1.3-6.7); Neutrophils Percent Auto 68.1 % (45.5-73.1); Platelet Count Result 303 k/mm3 (150-375); Red Blood Count 4.46 M/mm3 (4.2-5.4); White Blood Count 10.4 K/mm3 (4.5-10.0)
--- NOTE | 2025-02-19 20:48 | ED.SYNCOPE ---
HPI - Syncope General Chief Complaint: Syncope Stated Complaint: SYNCOPAL EPISODE X 10 MINUTES Time Seen by Provider: 02/19/25 20:20 History of Present Illness HPI narrative: 34-year-old female with a past medical history including sick sinus syndrome status post pacemaker placement, pots syndrome, right bundle branch block, asthma, seizure disorder on topiramate. Patient presents to the emergency department after a syncopal event. Patient states she has been doing with right-sided sciatica pain down her right thigh for last few days and the pain got severe while she was trying to walk from the grocery store to the car where she felt the pain shoot up and she felt like she passed out for several minutes. Patient did not have any seizure activity as witnessed by family members. Patient regained consciousness without any postictal phase. She states that she has been doing with this but not able to establish physical therapy and was previously given gabapentin for her sciatica. No recent steroids or injections. No trauma or injury. No falls or head trauma. She denies any chest pain, abdominal pain, back pain, fever, chills, shortness of breath. Her only complaint is some pain going down the right leg consistent with her sciatica. Related Data Home Medications ?Medication ?Instructions ?Recorded ?Confirmed ?Last Taken ?Type bupropion HCl 100 mg tablet 300 mg PO DAILY 06/15/21 05/02/24 Unknown History budesonide-formoterol HFA 160 2 puff inhalation Q12H 07/11/22 05/02/24 Unknown History mcg-4.5 mcg/actuation aerosol inhaler (Symbicort) metoprolol succinate 25 mg 25 mg PO DAILY 07/11/22 05/02/24 Unknown History tablet,extended release 24 hr albuterol sulfate 90 mcg/actuation 2 puff inhalation QID PRN 01/18/23 05/02/24 Unknown History aerosol inhaler Shortness Of Breath Or Wheezing flecainide 100 mg tablet 100 mg PO Q12H 01/18/23 05/02/24 Unknown History magnesium oxide 400 mg PO BID 01/18/23 05/02/24 Unknown History buspirone 10 mg tablet 10 mg PO BID 05/02/24 05/02/24 Unknown History clobetasol 0.05 % scalp solution See Rx Instructions .Route .COMPLEX 05/02/24 05/02/24 Unknown History escitalopram oxalate 10 mg tablet 10 mg PO DAILY 05/02/24 05/02/24 Unknown History topiramate 50 mg tablet 50 mg PO DAILY 05/02/24 05/02/24 Unknown History Allergies Allergy/AdvReac Type Severity Reaction Status Date / Time adhesive tape Allergy Mild Rash Verified 05/02/24 11:21 lorazepam Allergy Mild Itching Verified 05/02/24 11:21 paroxetine Allergy Mild Rash Verified 05/02/24 11:21 carbamazepine Allergy Unknown Unknown Verified 05/02/24 11:21 ceftriaxone (From Rocephin) Allergy Unknown Unknown Verified 05/02/24 11:21 lacosamide Allergy Unknown Rash Verified 05/02/24 11:21 Review of Systems Review of Systems: As reviewed above in [facility] Past Medical History Medical History LILI (obstructive sleep apnea) Postural orthostatic tachycardia syndrome Hemorrhoid UTI (urinary tract infection) H/O cardiac pacemaker Depression Sick sinus syndrome Seizure Anxiety Surgical History Surgical History H/O tubal ligation S/P cardiac pacemaker procedure Family History Family History Mother Family history non-contributory Social History Social History Smoking status: Never smoker Substance use: never Living arrangements: with family Gender identity (if verbalized by the patient): Female Sexual Orientation (if Verbalized by the Patient): Straight or Heterosexual Spiritual care concerns: No Exam Narrative: GENERAL: [Well-appearing, well-nourished, and in no acute distress.] HEAD: [Normocephalic, atraumatic.] EYES: [PERRLA and EOMI.] ENT: Nares clear, no rhinorrhea or epistaxis. Mucous membranes moist. NECK: Supple. CHEST: [Clear to auscultation. No respiratory distress.] HEART: [Regular rate and rhythm]. No murmur heard. [Normal peripheral pulses.] ABDOMEN: [Soft, nondistended], [nontender], [No rigidity or guarding] EXTREMITIES: Normal range of motion. [No edema.] SKIN: Warm, dry, no rash. NEURO: [No focal deficits]. Alert and oriented [x3.] EHL and FHL 5/5, full range of motion of the lower extremities, full sensation bilaterally. No footdrop. PSYCH: [Normal mood and affect.] Course Vital Signs Vital signs: Vital Signs Temperature 36.4 C L 02/19/25 20:11 Pulse Rate 84 02/19/25 20:11 Respiratory Rate 18 02/19/25 20:11 Blood Pressure 127/70 02/19/25 20:11 Pulse Oximetry 98 02/19/25 20:11 Oxygen Delivery Room Air 02/19/25 20:11 Temperature 36.4 C L 02/19/25 20:11 Pulse Rate 78 02/19/25 21:43 Respiratory Rate 17 02/19/25 21:43 Blood Pressure 107/73 02/19/25 21:43 Pulse Oximetry 100 02/19/25 21:43 Oxygen Delivery Room Air 02/19/25 20:11 MDM - Syncope MDM Narrative Medical decision making narrative: 34-year-old female with history of sick sinus syndrome status post pacemaker, pots syndrome, seizure disorder, obesity and sciatica. Patient presents the emergency room with chief complaint of a syncopal event. Patient states that she was walking in the grocery store car when she was feeling her right-sided sciatica flare up to the point that she had intense pain and passed out briefly. She regained consciousness and was not having any postictal phase did not hit her head. Does not take any blood thinners. She is acting appropriately and awake alert oriented with normal neurovascular examined vital signs here. She is only complaining of right-sided sciatica pain down her right hip posterior. States that she has tried gabapentin for this previously but no other medications. No signs of trauma, she has normal range of motion of the extremities, no footdrop, EHL FHL full strength and sensation throughout both legs. Suspicion for benign etiology to her syncopal event given her pain likely mediating it rather than cardiac dysrhythmia or seizure. Low suspicion intra cranial pathology given her normal mental status and neuro exam. Her pacemaker was interrogated here with [employer], cardiac workup ordered, patient placed on equipment monitor phototypesetting and re-evaluated. She is given Decadron Dilaudid for sciatica pain. No indications for any advanced imaging at this time. Patient was re-evaluated after initial medications and she had significant improvement her pain and was no longer having any significant sciatica symptoms. [employer] was contacted and she did not have any events during the supposed syncopal event. There was a recorded several beats of PVCs with bigeminy at around 4:00 p.m. but this was hours before her event and likely unrelated. No other events recorded. Patient's workup here shows no leukocytosis or anemia. Normal platelet count. Negative troponin. Negative BNP. Unremarkable electrolyte panel, GFR on baseline, normal glucose. Negative lactic acid. Chest x-ray shows no acute cardiopulmonary pathology. EKG shows chronic right bundle branch block but sinus rhythm. No ST segment changes or ectopy. Patient had no recurrent complaints or any other symptoms while here in the emergency department and had normal vital signs she is stable for discharge home. I did discuss the [employer] report with the patient as well. Patient will be sent home with a short course of steroids for her sciatica pain. Medical Records Attestation: I reviewed the patient's medical records. Lab Data Attestation: I reviewed the patient's lab results. 02/19/25 20:36 02/19/25 20:36 Labs: Lab Results 02/19/25 Range/Units 20:36 WBC 10.4 H (4.5-10.0) K/mm3 RBC 4.46 (4.2-5.4) M/mm3 Hgb 12.6 (12.0-15.0) g/dL Hct 40.5 (37.0-47.0) % MCV 90.8 (80-100) fl MCH 28.3 (26-34) pg MCHC 31.1 L (32-36) g/dl RDW 13.0 (11.5-14.5) % Plt Count 303 (150-375) k/mm3 MPV 10.1 (7.4-10.4) fl Immature Gran % (Auto) 0.4 (0-0.5) % Neut % (Auto) 68.1 (45.5-73.1) % Lymph % (Auto) 23.3 (18.3-44.2) % [place] % (Auto) 4.9 (2.6-8.5) % Eos % (Auto) 3.0 (0-4.4) % Baso % (Auto) 0.3 (0.2-1.2) % Lymph # (Auto) 2.43 (0.9-3.2) K/mm3 [place] # (Auto) 0.5 (0.1-0.6) K/mm3 Eos # (Auto) 0.3 (0-0.3) K/mm3 Baso # (Auto) 0.0 (0.0-0.1) K/mm3 Abs Immat Gran (auto) 0.04 H (0.00-0.031) K/mm3 Absolute Neuts (auto) 7.1 H (1.3-6.7) K/mm3 Absolute Nucleated RBC 0.000 (0.0-0.012) K/mm3 Nucleated RBC % 0.0 (0.0-0.2) % Sodium 137 (137-145) mmol/L Potassium 3.8 (3.4-5.0) mmol/L Chloride 104 (98-107) mmol/L Carbon Dioxide 25 (22-30) mmol/L Anion Gap 8 (4-12) mmol/L BUN 14 (7-17) mg/dL Creatinine 1.08 H (0.7-1.0) mg/dL Estim Creat Clear Calc 89 ml/min Estimated GFR 58 L (59 - ) Glucose 116 H (65-110) mg/dL Lactic Acid 1.3 (0.7-2.0) mmol/L Calcium 8.9 (8.4-10.2) mg/dL Magnesium 2.1 (1.6-2.3) mg/dL Total Bilirubin 0.3 (0.2-1.3) mg/dL AST 25 (14-36) U/L ALT 22 (6-35) U/L Alkaline Phosphatase 81 (38-126) U/L Troponin I < 0.012 (0.000-0.034) ng/mL NT-Pro-B Natriuret Pep 28 (19.9-100) pg/mL Total Protein 7.3 (6.3-8.2) g/dL Albumin 3.8 (3.5-5.1) g/dL Imaging Data Attestation: I personally reviewed and interpreted this imaging study as follows: My impression: Impressions Chest X-Ray 02/19/25 21:34 IMPRESSION: No acute cardiopulmonary pathology. ECG Data EKG #1: Attestation: I personally reviewed and interpreted this ECG as follows: ECG completion date: 02/19/25 ECG completion time: 20:31 Prior ECG tracings: available for review Interpretation: Sinus rhythm, right bundle branch block, no ST segment elevations, depressions. No ectopy. No interval change compared to prior. QTC 430, QRS 142, [place] interval 130. Rate of 70 beats. Discharge Plan Discharge Clinical Impression: Vasovagal syncope, Sciatica Patient Disposition: Home Condition: Stable Instructions: Antibiotic Form, Syncope (DC), Sciatica (ED), Lower Back Exercises (ED) Additional Instructions: Your laboratory studies are all reassuring, pacemaker interrogation showed no events during her syncopal collapse. We will send you home with some steroids for your sciatica type symptoms. Follow-up with your regular doctor about this. Return with any recurrence, other new symptoms, or any other emergent concerns. Patient Language: Indonesian Prescriptions: New prednisone 50 mg tablet 50 mg PO DAILY 5 Days Qty: 5 0RF No Action metoprolol succinate 25 mg Tablet Extended Release 24 Hr 25 mg PO DAILY budesonide-formoterol [Symbicort] 160-4.5 mcg/actuation Hfa Aerosol Inhaler 2 puff INHALATION Q12H flecainide 100 mg Tablet 100 mg PO Q12H magnesium oxide 400 mg magnesium Tablet 400 mg PO BID albuterol sulfate 90 mcg/actuation Hfa Aerosol Inhaler 2 puff INHALATION QID PRN (Reason: Shortness Of Breath Or Wheezing) buspirone 10 mg tablet 10 mg PO BID clobetasol 0.05 % solution See Rx Instructions .ROUTE .COMPLEX Rx Instructions: see rx instructions escitalopram oxalate 10 mg tablet 10 mg PO DAILY topiramate 50 mg tablet 50 mg PO DAILY Proctofoam HC 1-1 % foam 1 applic RECTAL QID PRN (Reason: hemorrhoids) Qty: 10 0RF nitrofurantoin monohyd/m-cryst [Macrobid] 100 mg capsule 100 mg PO Q12H 5 Days Qty: 10 0RF Rx Instructions: must administer with a meal/food bupropion HCl 100 mg tablet 300 mg PO DAILY Follow-up/Referrals: UNKNOWN,DOCTOR [Primary Care Provider] - Time of Disposition: 22:29
[2025-02-19] MEDS: dexAMETHasone SOD PHOS INJ 10 MG/ML 1 ML VIAL IV PUSH (20:52)
[2025-02-19] MEDS: HYDROmorphone HCL INJ (*CRX) 2 MG/ML VIAL 0.5 MG IV PUSH (20:52)
[2025-02-19 20:54] LABS: Lactic Acid Reflex 1.3 mmol/L (0.7-2.0)
[2025-02-19 21:43] VITALS: BP 107/73; PULSE 78; RESP 17; O2SAT 100
[2025-02-19 22:08] LABS: Alanine Aminotransferase 22 U/L (6-35); Albumin Level 3.8 g/dL (3.5-5.1); Alkaline Phosphatase 81 U/L (38-126); Anion Gap 8 mmol/L (4-12); Aspartate Amino Transferase 25 U/L (14-36); Bilirubin,Total 0.3 mg/dL (0.2-1.3); Blood Urea Nitrogen 14 mg/dL (7-17); Calcium 8.9 mg/dL (8.4-10.2); Carbon Dioxide 25 mmol/L (22-30); Chloride 104 mmol/L (98-107); Estimated CRCL calculation 89 ml/min; Estimated Glomerular Filt Rate 58; Glucose 116 mg/dL (65-110); Magnesium 2.1 mg/dL (1.6-2.3); Potassium 3.8 mmol/L (3.4-5.0); Sodium 137 mmol/L (137-145); Total Protein 7.3 g/dL (6.3-8.2); Troponin I < 0.012 ng/mL (0.000-0.034)
[2025-02-19 22:27] LABS: NT Pro B Type Natriuretic Pept 28 pg/mL (19.9-100)
== END 2025-02-19 22:34 | disposition home or self-care (01) ==
PROVIDERS: Emergency Provider Student in an Organized Health Care Education/Training Program
DX: R55 Syncope and collapse (principal); M54.31 Sciatica, right side; I49.5 Sick sinus syndrome; I45.10 Unspecified right bundle-branch block; J45.909 Unspecified asthma, uncomplicated; G90.A Postural orthostatic tachycardia syndrome [POTS]; G40.909 Epilepsy, unspecified, not intractable, without status epilepticus; G47.33 Obstructive sleep apnea (adult) (pediatric); F32.A Depression, unspecified; F41.9 Anxiety disorder, unspecified; Z95.0 Presence of cardiac pacemaker; Z87.440 Personal history of urinary (tract) infections; Z79.899 Other long term (current) drug therapy
CPT/HCPCS: 36415; 71045; 80053; 83605; 83735; 83880; 84484; 85025; 93005; 96361; 96374; 96375; 99284; J1100; J1171; J7030

== ENCOUNTER 2025-05-06 23:40 | Emergency (ER) | payer OTHER, SELFPAY ==
--- OUTSIDE RECORDS SUMMARY | 2025-05-05 14:15 | XMS_ITS | Encounter Summary ---
Author Organization [facility] Address [address] [place] [address] Phone Care Team Providers Care Foundation Stage Teacher Name Role Phone Isaias Whelan MD Unavailable Provider, None Primary Care Provider Unavailabl e Reason for Visit * PT/OT/ST (Routine) - Authorized Specialty Diagnoses / Procedures Referred By Nayeli man Referred To Contact Physical Therapy Diagnoses Pain in right leg Waylon Aragon MD [address] [place] [address] [address] [place] [address] Phone: tel: fax: [facility] [address] , [address] [address] Phone: tel: fax: Referral ID Status Reason Start Date Expiration Date V isits Requested Visits Authorized [id number] Authorized 02/11/2025 100 12 Encounter Details Date Type Department Care Team (Late st Contact Info) Description 05/05/2025 2:15 PM CDT Physical Therapy [facility] [address] [place] [address] Waylon Aragon MD [address] [facility] [address] [place] [address] Polo Banda PT [place] Arrived Discharge Disposition: Discharged to home or Selfcare Social History Tobacco Use Types Packs/Day Years [...] on file documented as of this encounter Miscellaneous Notes * Plan of Care - Polo Banda PT - 05/05/2025 2:15 PM CDT Patient presented to PT for treatment session. Patient immediately reported that she did not feel well, stating that she had a really bad headache, felt nauseous, and overall felt really lethargic. She suspected that her blood pressure was high. Therapist attempted to take blood pressure with automatic cuff but this did not work. Therapist took it manually and read 135/80 mmHg but her pulse was very faint. She reported that she has been really sick since yesterday. Discussed with patient the need to go to the emergency room due to the severity of her symptoms. When patient stood up to leave she immediately fainted. Therapist did his best to slow her fall. Patient remained on the ground for approximately 10-15 minutes while two therapists worked together to check her responsiveness and to see if she was okay, which she was able to respond to. EMS was called and patient was picked up and taken to [facility] via ambulance. Treatment not performed this session. POLO BANDA PT documented in this encounter Plan of Treatment Upcoming Encounters Date Type Department Care Team (Late st Contact Info) Description 05/07/2025 2:00 PM CDT Physical Therapy [facility] [address] [place] [phone] Waylon Aragon MD [address] [facility] [address] [place] [address] Mariana Guerrero, PT [place] 05/12/2025 1:30 PM CDT Physical Therapy [facility] [address] [facility] [place] [phone] Waylon Aragon MD [address] [place] [address] [address] [place] [address] Polo Banda, PT [place] 05/15/2025 1:15 PM CDT Physical Therapy [facility] [address], [address] [phone] Waylon Aragon MD [address] [place] [address] [address] [place] [address] Mariana Guerrero, PT [place] 05/19/2025 1:30 PM CDT Physical Therapy [facility] [address] [facility] [address] [place] [phone] Waylon Aragon MD [address] [place] [address] [address] [place] [address] Polo Banda, PT [place] documented as of this encounter Visit Diagnoses Not on filedocumented in this encounter Care Teams Foundation Stage Teacher Relationship Specialty Start Date End Date Provider, None [place] PCP - General 05/05/25 Isaias Whelan MD #2 [facility] [address] [place] [address] Consulting Physician Colon and Rectal Surgery 05/16/24 documented as of this encounter
--- OUTSIDE RECORDS SUMMARY | 2025-05-05 15:03 | XMS_ITS | Encounter Summary ---
Author Organization [facility] Address [address] [place] [address] Phone Care Team Providers Care Tree Surgeon Helper Name Role Phone Isaias Whelan MD Unavailable Provider, None Primary Care Provider Unavailabl e Reason for Visit * Reason Comments Loss of Consciousness Encounter Details Date Type Department Care Team (Late st Contact Info) Description 05/05/2025 3:03 PM CDT - 05/05/2025 5:48 PM CDT Emergency [facility] [address] [place] [id number] Lon Shetty, DO [address] [place] [address] Syncope Discharge Disposition: Discharged to home or Selfcare [...] on file documented as of this encounter Last Filed Vital Signs Vital Sign Reading Time Taken Comments Blood Pressure 98/77 05/05/2025 5:30 PM CDT Pulse 90 05/05/2025 5:30 PM CDT Temperature 37.3 C (99.1 F) 05/05/2025 3:09 PM CDT Respiratory Rate 21 05/05/2025 5:30 PM CDT Oxygen Saturation 99% 05/05/2025 5:30 PM CDT Inhaled Oxygen Concentration - - Weight 138.3 kg (305 lb) 05/05/2025 3:09 PM CDT Height 162.6 cm (5' 4) 05/05/2025 3:09 PM CDT Body Mass Index 52.35 05/05/2025 3:09 PM CDT documented in this encounter Discharge Instructions * Discharge Instructions* Lon Shetty DO - 05/05/2025 5:26 PM CDT Did you know? Antibiotics do not treat viruses, there are some antivirals that exist but they do not treat most causes of the common cold [id number] vitamin-C and zinc has been proven to help in recovery for viral illnesses. *Exercise is 1.5 more effective than any antidepressives for depression/sadness* Follow up with your doctor within 24hrs Take Medications as prescribed. Return to ER immediately at anytime if symptoms worsen/ persists, chest pain, shortness of breath, lightheadedness, loss of consciousness, numbness/weakness/tingling in your arms or legs. If patient is using abdominal or rib muscles to breathe or breathing faster than normal. Return if fevers greater than 101, continuous vomiting, inability to drink fluids or tolerate solids by mouth, dehydration, lethargy, if patient not acting normally or any other concerns you may have. Please followup with your primary care doctor or the physician you have been given here in the emergency department prior to any travel. GO CARDINALS!!! GO BLUES !!! GO [employer]!!! GO [email or web address]!!! documented in this encounter Medications at Time of Discharge albuterol 108 (90 Base) MCG/ACT Aerosol Solution INHALE 2 PUFFS BY MOUTH EVERY 6 TO 8 HOURS NEEDED ARIPiprazole (ABILIFY) 10 MG Tablet Take 10 mg by mouth daily. 01/04/2025 budesonide-formot fadumo fumarate (SYMBICORT) 160-4.5 MCG/ACT Aerosol take 2 Puffs by inhalation. buPROPion (WELLBUTRIN) 150 MG XL tablet Take 450 mg by mouth every morning. buPROPion (WELLBUTRIN) 300 MG TABLET SR 24 HR XL tablet Take 300 mg by mouth every morning. busPIRone (BUSPAR) 10 MG Tablet Take 1 Tablet by mouth 2 times daily. 01/07/2024 clobetasol (TEMOVATE) 0.05 % Solution APPLY TO SCALP 1-2 TIMES DAILY NEEDED. 30 DAYS SUPPLY. diclofenac (CATAFLAM) 50 MG Tablet Take 1 Tablet by mouth 2 times daily. 20 Tablet 01/05/2023 Elastic Bandages & Supports (Medical Compression Stockings) Misc 2 Pieces by Does not apply route daily. 2 Each 07/20/2022 escitalopram (LEXAPRO) 10 MG Tablet Take 10 mg by mouth daily. 04/19/2024 famotidine (PEPCID) 20 MG Tablet Take 1 Tablet by mouth 2 times daily as needed (other). 30 Tablet 01/30/2025 ketorolac (TORADOL) 10 MG Tablet Take 1 Tablet by mouth every 6 hours as needed for Mild or more severe pain. 15 Tablet 06/11/2024 magnesium oxide (MAG-OX) 400 MG Tablet Take 400 mg by mouth 2 times daily. 07/21/2022 meclizine (ANTIVERT) 25 MG Tablet Take 1 Tablet by mouth 3 times daily as needed for Dizziness. 30 Tablet 01/31/2024 metoprolol Succinate (TOPROL-XL) 25 MG TABLET SR 24 HR Take 1 Tablet by mouth daily. midodrine (PROAMATINE) 5 MG Tablet Take 5 mg by mouth 3 times daily. 04/16/2025 naproxen (NAPROSYN) 500 MG Tablet Take 1 Tablet by mouth 2 times daily as needed for Moderate or more severe pain. 20 Tablet 02/20/2025 naproxen (NAPROSYN) 500 MG Tablet Take 1 Tablet by mouth 2 times daily as needed for Mild or more severe pain. 20 Tablet 09/13/2023 omeprazole (PriLOSEC) 20 MG CAPSULE DELAYED RELEASE Take 1 Capsule by mouth daily. 30 Capsule 01/30/2024 omeprazole (PriLOSEC) 40 MG CAPSULE DELAYED RELEASE Take 1 Capsule by mouth daily. 30 Capsule 09/24/2022 sodium chloride 1 GM Tablet Take 1 g by mouth 3 times daily. tiZANidine HCl (Zanaflex) 4 MG Capsule Take 1 Capsule by mouth 3 times daily. 90 Capsule 12/08/2024 Topiramate 50 MG Tablet Take 50 mg by mouth 2 times daily. traMADol (ULTRAM) 50 MG TabletIndications :Back pain Take 1-2 Tablets by mouth every 6 hours as needed for Moderate or more severe pain. 20 Tablet 12/08/2024 traMADol (ULTRAM) 50 MG TabletIndications :Chest wall pain Take 1-2 Tablets by mouth every 6 hours as needed for Moderate or more severe pain. 20 Tablet 01/07/2023 traZODone (DESYREL) 100 MG Tablet Take 100 mg by mouth nightly. documented as of this encounter ED Notes * Luli Nieves RN - 05/05/2025 5:47 PM CDT Patient discharged. Discharge instructions and patient educational material reviewed with patient; questions and concerns addressed; patient verbalizes understanding, using teach back. Patient was given 0 prescriptions. Patient was informed no drinking alcohol, driving or operating heavy machinery while taking narcotics or muscle relaxants. Patient discharged ambulatory with Spouse as responsibleparty. IV catheter removed intact, dressing applied. * Navya Hare RN - 05/05/2025 5:38 PM CDT Pt medicated per provider orders. Pt educated on intended effects and side effects of medication and verbalized understanding, able to provide teach back of education. * Luli Nieves RN - 05/05/2025 5:30 PM CDT MD at bedside. * Luli Nieves RN - 05/05/2025 5:20 PM CDT Pacemaker interrogation report received and given to . * Luli Nieves RN - 05/05/2025 5:01 PM CDT Patient is resting in room with call light at bedside. Patient denies needs at this time and verbalizes understanding that RN will complete hourly rounding.Patient is resting in room with call light at bedside. Patient denies needs at this time and verbalizes understanding that RN will complete hourly rounding. Patient given warm blanket. * Luli Nieves RN - 05/05/2025 4:35 PM CDT Patient is resting in room with call light at bedside. Patient denies needs at this time and verbalizes understanding that RN will complete hourly rounding. * Luli Nieves RN - 05/05/2025 4:10 PM CDT [employer] pacemaker interrogated. Awaiting report to be faxed. * Luli Nieves RN - 05/05/2025 3:17 PM CDT Patient arrives via EMS with complaint of syncopal episode at [facility]. Patient states seh started having a headache, chest pain and feeling woozy last night. Patient states at therapy today she felt woozy again and passed out. * Lon Shetty DO - 05/05/2025 3:07 PM CDT Images from the original note were not included. Chief Complaint Patient presents with Loss of Consciousness 34-year-old female brought in by secondary to syncopal episode, notes she has a history of POTS and subsequent sick sinus syndrome-pacemaker placed. She notes this was done by Dr. Menchaca in [place]. She notes that her doctor recently increased her midodrine at home but her blood pressure was running a little high yesterday. She denies loss of bladder or bowel or any tongue biting, or any numbness/weakness/tingling. Review of systems negative otherwise. Current Medications[1] Allergies[2] Past Medical History Positives Diagnosis Date Anxiety Asthma Gastric ulcer GERD (gastroesophageal reflux disease) Obesity LILI on CPAP POTS (postural orthostatic tachycardia syndrome) Seizures (HCC) Last 2015 SSS (sick sinus syndrome) (HCC) Pacemaker Past Surgical History[3] Social History Socioeconomic History Marital status: Spouse name: Not on file Number of children: Not on file Years of education: Not on file Highest education level: Not on file Occupational History Not on file Tobacco Use Smoking status: Never Smokeless tobacco: Never Vaping Use Vaping status: Never Used Substance and Sexual Activity Alcohol use: No Drug use: Not Currently Types: Marijuana Comment: quit 2021 Sexual activity: Yes Partners: Male Other Topics Concern Not on file Social History Narrative Not on file Social Drivers of Health Financial Resource Needs: Low Risk (05/17/2024) Received from [facility] Overall Financial Resource Strain (CARDIA) Difficulty of Paying Living Expenses: Not very hard Food Insecurity Needs: Food Insecurity Present (05/17/2024) Received from [facility] Hunger Vital Sign Within the past 12 months, you worried that your food would run out before you got the money to buymore.: Sometimes true Within the past 12 months, the food you bought just didn't last and you didn't have money to get more.: Never true Transportation Needs: No Transportation Needs (05/17/2024) Received from [facility] PRAPARE - Transportation Lack of Transportation (Medical): No Lack of Transportation (Non-Medical): No Physical Activity: Not on file Stress: No Stress Concern Present (05/17/2024) Received from [facility] [place] [facility] [employer] - Occupational Stress Questionnaire Feeling of Stress : Not at all Social Integration: Not on file Personal Safety: Low Risk (05/05/2025) Personal Safety Feels Unsafe at Home or Work/School: no Feels Threatened by Someone: no Does Anyone Try to Keep You From Having Contact with Others or Doing Things Outside Your Home?: no Physical Signs of Abuse Present: no Housing Stability: Not on file BP 118/56 Pulse 70 Temp 99.1 ??F (37.3 ??C) (Tympanic) Resp 9 Ht 5' 4 (1.626 m) Wt 305 lb (138.3 kg) LMP 04/14/2025 (Exact Date) Comment: tubal ligation SpO2 100% BMI 52.35 kg/m?? Review of Systems Physical Exam Vitals and nursing note reviewed. Constitutional: General: She is not in acute distress. Appearance: She is well-developed. She is not diaphoretic. Comments: Age-appropriate, pleasant, no acute distress, at bedside, over nourished, no acute distress. HENT: Head: Normocephalic and atraumatic. Right Ear: External ear normal. Left Ear: External ear normal. Nose: Nose normal. Mouth/Throat: Mouth: Mucous membranes are moist. Pharynx: No oropharyngeal exudate. Eyes: General: Right eye: No discharge. Left eye: No discharge. Conjunctiva/sclera: Conjunctivae normal. Pupils: Pupils are equal, round, and reactive to light. Neck: Thyroid: No thyromegaly. Vascular: No JVD. Trachea: No tracheal deviation. Cardiovascular: Rate and Rhythm: Normal rate and regular rhythm. Heart sounds: Normal heart sounds. No murmur heard. Pulmonary: Effort: Pulmonary effort is normal. No respiratory distress. Breath sounds: Normal breath sounds. No wheezing or rales. Chest: Chest wall: No tenderness. Abdominal: General: Bowel sounds are normal. There is no distension. Palpations: Abdomen is soft. There is no mass. Tenderness: There is no abdominal tenderness. There is no guarding or rebound. Musculoskeletal: General: No tenderness. Normal range of motion. Cervical back: Normal range of motion and neck supple. Lymphadenopathy: Cervical: No cervical adenopathy. Skin: General: Skin is warm and dry. Capillary Refill: Capillary refill takes less than 2 seconds. Coloration: Skin is not pale. Findings: No erythema or rash. Neurological: Mental Status: She is alert and oriented to person, place, and time. Cranial Nerves: No cranial nerve deficit. Motor: No abnormal muscle tone. Coordination: Coordination normal. Deep Tendon Reflexes: Reflexes are normal and symmetric. Psychiatric: Behavior: Behavior normal. Thought Content: Thought content normal. EKG 12 LEAD Performed by: Lon Shetty DO Authorized by: Lon Shetty DO EKG Interpretation 1500 Interpreted by la Rhythm: paced Rate: normal Sterling: - Clinical Impression: electronically dual paced paced rhythm with prolonged AV conduction Recent Results (from the past 24 hours) EKG 12 LEAD Collection Time: 05/05/25 3:00 PM Result Value Ref Range Ventricular Rate 95 BPM Atrial Rate 95 BPM P-R Interval 238 ms QRS Duration 162 ms Q-T Duration 438 ms QTC CALCULATION 550 ms P Sterling -6 degrees R Sterling -60 degrees T Sterling 66 degrees POCT Glucose Collection Time: 05/05/25 3:12 PM Result Value Ref Range GLUCOSE,BEDSIDE POCT 84 70 - 99 mg/dL CMP (Comprehensive Metabolic Panel) Collection Time: 05/05/25 3:20 PM Result Value Ref Range SODIUM 140 136 - 145 mmol/L POTASSIUM 4.3 3.5 - 5.1 mmol/L CHLORIDE 108 (H) 98 - 107 mmol/L CO2, VENOUS 25 22 - 30 mmol/L ANION GAP 11.3 <18.0 mmol/L GLUCOSE 86 70 - 99 mg/dL BUN 9 5 - 18 mg/dL CREATININE, BLOOD 0.88 0.60 - 1.00 mg/dL BUN/CREATININE RATIO 10 (L) 12 - 20 ratio TOTAL PROTEIN 7.2 6.0 - 8.0 g/dL ALBUMIN 3.7 3.5 - 5.0 g/dL A/G RATIO 1.1 1.0 - 2.2 CALCIUM 8.4 (L) 8.7 - 10.5 mg/dL T BILI 0.3 0.2 - 1.2 mg/dL SGOT (AST) 31 <43 U/L SGPT (ALT) 22 <56 U/L ALKALINE PHOSPHATASE 90 40 - 150 U/L GFR, ESTIMATED >60 >=60 GFR, EST. >60 >=60 GFR, EST. NONAFRICAN >60 >=60 TROPONIN I, HIGH SENSITIVITY (HSTRP) Collection Time: 05/05/25 3:20 PM Result Value Ref Range TROPONIN I, HIGH SENSITIVITY- LOAIZA <2.7 <=14.0 ng/L CBC with Auto Differential Collection Time: 05/05/25 3:20 PM Result Value Ref Range WBC 12.85 (H) 4.00 - 12.00 10(3)/mcL RBC 4.53 3.80 - 5.30 10(6)/mcL HEMOGLOBIN (HGB) 12.8 12.0 - 15.8 g/dL HEMATOCRIT (HCT) 40.8 36.0 - 47.0 % MCV 90.1 82.0 - 96.0 fL MCH 28.3 26.0 - 34.0 pg MCHC 31.4 31.0 - 36.0 g/dL PLATELET COUNT 335 140 - 440 10(3)/mcL RDW 13.3 11.8 - 15.5 % MPV 9.9 9.7 - 12.4 fL NEUTROPHILS 76.9 (H) 47.0 - 73.0 % LYMPHOCYTES 14.4 (L) 18.0 - 42.0 % MONOCYTES 4.3 4.0 - 12.0 % EOSINOPHILS 3.5 0.0 - 5.0 % BASOPHILS 0.5 0.0 - 1.0 % IMMATURE GRANULOCYTE 0.4 0.0 - 0.4 % ABSOLUTE NEUTROPHILS 9.89 (H) 1.60 - 7.70 10(3)/mcL ABSOLUTE LYMPHOCYTES 1.85 1.30 - 3.20 10(3)/mcL ABSOLUTE MONOCYTES 0.55 0.20 - 1.00 10(3)/mcL ABSOLUTE EOSINOPHIL 0.45 (H) 0.00 - 0.40 10(3)/mcL ABSOLUTE BASOPHILS 0.06 0.00 - 0.10 10(3)/mcL ABSOLUTE IMMATURE GRANULOCYTE 0.05 (H) 0.00 - 0.03 10 (3) mcL. NRBC PER 100 WBC 0 Imaging Results None Emergency Department Progress. (Note: only significant re-evaluation times are documented, patientsin the emergency department typically have many more re- evaluations than reasonably document) 5:28 PM CDT Re-eval: Patient feeling better, no new issues, wants to go home, she is comfortable with dischargeand follow up with primary care doctor. All questions have been answered to the patient and any friends/family present currently present. In reviewing the patient's chart, their primary care doctor is NONE PROVIDER. CMP (Comprehensive Metabolic Panel) Final Result Complete Blood Count (CBC) WITH Diff Final Result TROPONIN I, HIGH SENSITIVITY (HSTRP) Final Result EKG 12 LEAD Final Result AV dual-paced rhythm with prolonged AV conduction Abnormal ECG When compared with ECG of 20-MAR-2025 14:40, Electronic ventricular pacemaker has replaced Sinus rhythm Confirmed by YAS XIONG ([id number]) on 05/05/2025 3:43:53 PM Labs Reviewed CMP (COMPREHENSIVE METABOLIC PANEL) - Abnormal; Notable for the following components: Result Value CHLORIDE 108 (*) BUN/CREATININE RATIO 10 (*) CALCIUM 8.4 (*) All other components within normal limits CBC WITH AUTO DIFFERENTIAL - Abnormal; Notable for the following components: WBC 12.85 (*) NEUTROPHILS 76.9 (*) LYMPHOCYTES 14.4 (*) ABSOLUTE NEUTROPHILS 9.89 (*) ABSOLUTE EOSINOPHIL 0.45 (*) ABSOLUTE IMMATURE GRANULOCYTE 0.05 (*) All other components within normal limits TROPONIN I, HIGH SENSITIVITY (HSTRP) - Normal POCT GLUCOSE - Normal COMPLETE BLOOD COUNT (CBC) WITH DIFF Narrative: The following orders were created for panel order Complete Blood Count (CBC) WITH Diff. Procedure Abnormality Status --------- ------ CBC with Auto Differential[[id number]] Abnormal Final result Please view results for these tests on the individual orders. I have reviewed the available labs, imaging, and nursing notes. Prescription Considerations for Home: Medication List CONTINUE taking these medications Medical Compression Stockings Misc 2 Pieces by Does not apply route daily. ASK your doctor about these medications albuterol 108 (90 Base) MCG/ACT Aers Commonly known as: PROVENTIL HFA, VENTOLIN HFA ARIPiprazole 10 MG Tabs Commonly known as: ABILIFY budesonide-formoterol fumarate 160-4.5 MCG/ACT Aero Commonly known as: SYMBICORT * buPROPion 300 MG Tab-sr-24hr XL tablet Commonly known as: WELLBUTRIN * buPROPion 150 MG XL tablet Commonly known as: WELLBUTRIN busPIRone 10 MG Tabs Commonly known as: BUSPAR clobetasol 0.05 % Soln Commonly known as: TEMOVATE diclofenac 50 MG Tabs Commonly known as: CATAFLAM Take 1 Tablet by mouth 2 times daily. escitalopram 10 MG Tabs Commonly known as: LEXAPRO famotidine 20 MG Tabs Commonly known as: PEPCID Take 1 Tablet by mouth 2 times daily as needed (other). ketorolac 10 MG Tabs Commonly known as: TORADOL Take 1 Tablet by mouth every 6 hours as needed for Mild or more severe pain. magnesium oxide 400 MG Tabs Commonly known as: MAG-OX meclizine 25 MG Tabs Commonly known as: ANTIVERT Take 1 Tablet by mouth 3 times daily as needed for Dizziness. metoprolol Succinate 25 MG Tab-sr-24hr Commonly known as: TOPROL-XL midodrine 5 MG Tabs Commonly known as: PROAMATINE * naproxen 500 MG Tabs Commonly known as: NAPROSYN Take 1 Tablet by mouth 2 times daily as needed for Mild or more severe pain. * naproxen 500 MG Tabs Commonly known as: NAPROSYN Take 1 Tablet by mouth 2 times daily as needed for Moderate or more severe pain. * omeprazole 40 MG Cap-del-rel Commonly known as: PriLOSEC Take 1 Capsule by mouth daily. * omeprazole 20 MG Cap-del-rel Commonly known as: PriLOSEC Take 1 Capsule by mouth daily. sodium chloride 1 GM Tabs tiZANidine HCl 4 MG Caps Commonly known as: Zanaflex Take 1 Capsule by mouth 3 times daily. topiramate 50 MG Tabs Commonly known as: TOPAMAX * traMADol 50 MG Tabs Commonly known as: ULTRAM Take 1-2 Tablets by mouth every 6 hours as needed for Moderate or more severe pain. * traMADol 50 MG Tabs Commonly known as: ULTRAM Take 1-2 Tablets by mouth every 6 hours as needed for Moderate or more severe pain. traZODone 100 MG Tabs Commonly known as: DESYREL * This list has 8 medication(s) that are the same as other medications prescribed for you. Read thedirections carefully, and ask your doctor or other care provider to review them with you. Emergency Department Progress. (Note: only significant re-evaluation times are documented, patientsin the emergency department typically have many more re- evaluations than reasonably document) 5:28 PM CDT Re-eval: Patient feeling better, no new issues, wants to go home, she is comfortable with dischargeand follow up with primary care doctor. All questions have been answered to the patient and any friends/family present currently present. In reviewing the patient's chart, their primary care doctor is NONE PROVIDER. CMP (Comprehensive Metabolic Panel) Final Result Complete Blood Count (CBC) WITH Diff Final Result TROPONIN I, HIGH SENSITIVITY (HSTRP) Final Result EKG 12 LEAD Final Result AV dual-paced rhythm with prolonged AV conduction Abnormal ECG When compared with ECG of 20-MAR-2025 14:40, Electronic ventricular pacemaker has replaced Sinus rhythm Confirmed by YAS XIONG ([id number]) on 05/05/2025 3:43:53 PM Labs Reviewed CMP (COMPREHENSIVE METABOLIC PANEL) - Abnormal; Notable for the following components: Result Value CHLORIDE 108 (*) BUN/CREATININE RATIO 10 (*) CALCIUM 8.4 (*) All other components within normal limits CBC WITH AUTO DIFFERENTIAL - Abnormal; Notable for the following components: WBC 12.85 (*) NEUTROPHILS 76.9 (*) LYMPHOCYTES 14.4 (*) ABSOLUTE NEUTROPHILS 9.89 (*) ABSOLUTE EOSINOPHIL 0.45 (*) ABSOLUTE IMMATURE GRANULOCYTE 0.05 (*) All other components within normal limits TROPONIN I, HIGH SENSITIVITY (HSTRP) - Normal POCT GLUCOSE - Normal COMPLETE BLOOD COUNT (CBC) WITH DIFF Narrative: The following orders were created for panel order Complete Blood Count (CBC) WITH Diff. Procedure Abnormality Status --------- ------ CBC with Auto Differential[[id number]] Abnormal Final result Please view results for these tests on the individual orders. I have reviewed the available labs, imaging, and nursing notes. Prescription Considerations for Home: Medication List CONTINUE taking these medications Medical Compression Stockings Misc 2 Pieces by Does not apply route daily. ASK your doctor about these medications albuterol 108 (90 Base) MCG/ACT Aers Commonly known as: PROVENTIL HFA, VENTOLIN HFA ARIPiprazole 10 MG Tabs Commonly known as: ABILIFY budesonide-formoterol fumarate 160-4.5 MCG/ACT Aero Commonly known as: SYMBICORT * buPROPion 300 MG Tab-sr-24hr XL tablet Commonly known as: WELLBUTRIN * buPROPion 150 MG XL tablet Commonly known as: WELLBUTRIN busPIRone 10 MG Tabs Commonly known as: BUSPAR clobetasol 0.05 % Soln Commonly known as: TEMOVATE diclofenac 50 MG Tabs Commonly known as: CATAFLAM Take 1 Tablet by mouth 2 times daily. escitalopram 10 MG Tabs Commonly known as: LEXAPRO famotidine 20 MG Tabs Commonly known as: PEPCID Take 1 Tablet by mouth 2 times daily as needed (other). ketorolac 10 MG Tabs Commonly known as: TORADOL Take 1 Tablet by mouth every 6 hours as needed for Mild or more severe pain. magnesium oxide 400 MG Tabs Commonly known as: MAG-OX meclizine 25 MG Tabs Commonly known as: ANTIVERT Take 1 Tablet by mouth 3 times daily as needed for Dizziness. metoprolol Succinate 25 MG Tab-sr-24hr Commonly known as: TOPROL-XL midodrine 5 MG Tabs Commonly known as: PROAMATINE * naproxen 500 MG Tabs Commonly known as: NAPROSYN Take 1 Tablet by mouth 2 times daily as needed for Mild or more severe pain. * naproxen 500 MG Tabs Commonly known as: NAPROSYN Take 1 Tablet by mouth 2 times daily as needed for Moderate or more severe pain. * omeprazole 40 MG Cap-del-rel Commonly known as: PriLOSEC Take 1 Capsule by mouth daily. * omeprazole 20 MG Cap-del-rel Commonly known as: PriLOSEC Take 1 Capsule by mouth daily. sodium chloride 1 GM Tabs tiZANidine HCl 4 MG Caps Commonly known as: Zanaflex Take 1 Capsule by mouth 3 times daily. topiramate 50 MG Tabs Commonly known as: TOPAMAX * traMADol 50 MG Tabs Commonly known as: ULTRAM Take 1-2 Tablets by mouth every 6 hours as needed for Moderate or more severe pain. * traMADol 50 MG Tabs Commonly known as: ULTRAM Take 1-2 Tablets by mouth every 6 hours as needed for Moderate or more severe pain. traZODone 100 MG Tabs Commonly known as: DESYREL * This list has 8 medication(s) that are the same as other medications prescribed for you. Read thedirections carefully, and ask your doctor or other care provider to review them with you. Medical Decision Making The patient's syncope does not appear to come from any acute emergent cardiothoracic condition. Thepatient's vital signs are normal. I have spoken with the patient at great length and @she@ is comfortable with discharge home and followup with a primary care physician as an outpatient. @she@ is satting well at this time. Pacer interrogated, no significant events noted, report given to patient. Syncope - Differential Diagnosis 1. Cardiac Causes (Potentially life-threatening - always rule out first!) Arrhythmias Bradyarrhythmias (e.g., sick sinus syndrome, AV block) Tachyarrhythmias (e.g., VT, SVT, WPW) Long QT syndrome Brugada syndrome Catecholaminergic polymorphic VT Structural/Cardiovascular Disease Aortic stenosis Hypertrophic obstructive cardiomyopathy (HOCM) Pulmonary embolism (massive) Myocardial infarction Cardiac tamponade 2. Reflex (Neurally Mediated) Syncope - Most common category Vasovagal (Neurocardiogenic) Syncope Triggered by pain, emotional distress, prolonged standing Prodrome: nausea, pallor, diaphoresis Situational Syncope Cough, micturition, defecation, swallowing, laughing Carotid Sinus Hypersensitivity Triggered by head turning, tight collars, shaving More common in elderly 3. Orthostatic Hypotension Due to volume or autonomic causes: Volume depletion: bleeding, dehydration, diuretics Autonomic failure: Parkinson's, diabetes, amyloidosis Drugs: alpha-blockers, vasodilators, antidepressants 4. Cerebrovascular Causes Subclavian steal syndrome Basilar artery insufficiency (rare) Stroke/TIA does NOT usually cause syncope unless brainstem involved 5. Psychiatric or Functional Causes Psychogenic pseudosyncope (often prolonged unresponsiveness) Anxiety, panic attacks Diagnosis of exclusion 6. Other Seizure (true LOC but not syncope; may mimic) Post-ictal phase, tongue biting, incontinence Hypoglycemia Hypoxia Anemia (severe) Intoxication (alcohol, drugs) Red Flags (BAD syncope) During exertion (consider HOCM, arrhythmia, ) No prodrome Abnormal ECG Family history of sudden cardiac Age >60 with cardiac risk factors Syncope with chest pain, palpitations, or dyspnea Syncope with injury (no warning) Recurrent or progressive Clinical Impression 1. Syncope Disposition: Discharge Do Disposition: Discharge home Condition:Stable CLINICAL IMPRESSION: 1. Syncope Current Outpatient Medications Medication Instructions albuterol 108 (90 Base) MCG/ACT Aerosol Solution INHALE 2 PUFFS BY MOUTH EVERY 6 TO 8 HOURS NEEDED ARIPiprazole (ABILIFY) 10 mg, DAILY budesonide-formoterol fumarate (SYMBICORT) 160-4.5 MCG/ACT Aerosol 2 Puffs buPROPion (WELLBUTRIN) 300 mg, EVERY MORNING buPROPion (WELLBUTRIN) 450 mg, EVERY MORNING busPIRone (BUSPAR) 10 MG Tablet 1 Tablet, 2 TIMES DAILY clobetasol (TEMOVATE) 0.05 % Solution APPLY TO SCALP 1-2 TIMES DAILY NEEDED. 30 DAYS SUPPLY. diclofenac (CATAFLAM) 50 mg, Oral, 2 TIMES DAILY Elastic Bandages & Supports (Medical Compression Stockings) Misc 2 Pieces, Does not apply, DAILY escitalopram (LEXAPRO) 10 mg, DAILY famotidine (PEPCID) 20 mg, Oral, 2 TIMES DAILY PRN ketorolac (TORADOL) 10 mg, Oral, EVERY 6 HOURS PRN magnesium oxide (MAG-OX) 400 mg, 2 TIMES DAILY meclizine (ANTIVERT) 25 mg, Oral, 3 TIMES DAILY PRN metoprolol Succinate (TOPROL-XL) 25 MG TABLET SR 24 HR 1 Tablet, DAILY midodrine (PROAMATINE) 5 mg, 3 TIMES DAILY naproxen (NAPROSYN) 500 mg, Oral, 2 TIMES DAILY PRN naproxen (NAPROSYN) 500 mg, Oral, 2 TIMES DAILY PRN omeprazole (PRILOSEC) 40 mg, Oral, DAILY omeprazole (PRILOSEC) 20 mg, Oral, DAILY sodium chloride 1 g, 3 TIMES DAILY tiZANidine HCl (ZANAFLEX) 4 mg, Oral, 3 TIMES DAILY topiramate (TOPAMAX) 50 mg, 2 TIMES DAILY traMADol (ULTRAM) 50-100 mg, Oral, EVERY 6 HOURS PRN traMADol (ULTRAM) 50-100 mg, Oral, EVERY 6 HOURS PRN traZODone (DESYREL) 100 mg, NIGHTLY Medications Ordered Prior to Encounter[4] Lon Shetty D.O. Emergency/Tactical Medicine Attention patients/caregivers: Secondary to the 21st Century medical cares act notes and test results are now immediately released to patients and caregivers. If you are the patient referenced in this documentation or a caregiver thereof and are reading this chart, please be aware that there is medical terminology, abbreviations, and methods of communication which are intended for medical professional interpretation only. If you have questions, please contact your primary care provider. If there are specific physician's or contact information referenced in this chart do not use it as it may be out of date. Certain laboratory values or radiologic studies may have findings that appear abnormal, these were reviewed by your physician and do not require further emergent or urgent medical attention. If you have further questions about any testing performed please contact your primary care provider for clarification or further discussion. Portions of this chart may have been completed with voice recognition software or Artificial Intelligence capabilities and may contain slight errors unrecognizable by the users. This would in no way affect the patient's care and is meant to improve length and quality of medical decision making and history taking. [1] No current facility-administered medications for this encounter. Current Outpatient Medications Medication Sig Dispense Refill albuterol 108 (90 Base) MCG/ACT Aerosol Solution INHALE 2 PUFFS BY MOUTH EVERY 6 TO 8 HOURS NEEDED ARIPiprazole (ABILIFY) 10 MG Tablet Take 10 mg by mouth daily. budesonide-formoterol fumarate (SYMBICORT) 160-4.5 MCG/ACT Aerosol take 2 Puffs by inhalation. buPROPion (WELLBUTRIN) 150 MG XL tablet Take 450 mg by mouth every morning. buPROPion (WELLBUTRIN) 300 MG TABLET SR 24 HR XL tablet Take 300 mg by mouth every morning. busPIRone (BUSPAR) 10 MG Tablet Take 1 Tablet by mouth 2 times daily. clobetasol (TEMOVATE) 0.05 % Solution APPLY TO SCALP 1-2 TIMES DAILY NEEDED. 30 DAYS SUPPLY. (Patient not taking: Reported on 05/05/2025) diclofenac (CATAFLAM) 50 MG Tablet Take 1 Tablet by mouth 2 times daily. (Patient not taking: Reported on 05/21/2024) 20 Tablet 0 Elastic Bandages & Supports (Medical Compression Stockings) Misc 2 Pieces by Does not apply route daily. (Patient not taking: Reported on 05/05/2025) 2 Each 0 escitalopram (LEXAPRO) 10 MG Tablet Take 10 mg by mouth daily. famotidine (PEPCID) 20 MG Tablet Take 1 Tablet by mouth 2 times daily as needed (other). (Patient not taking: Reported on 05/05/2025) 30 Tablet 0 ketorolac (TORADOL) 10 MG Tablet Take 1 Tablet by mouth every 6 hours as needed for Mild or more severe pain. (Patient not taking: Reported on 05/05/2025) 15 Tablet 0 magnesium oxide (MAG-OX) 400 MG Tablet Take 400 mg by mouth 2 times daily. meclizine (ANTIVERT) 25 MG Tablet Take 1 Tablet by mouth 3 times daily as needed for Dizziness. (Patient not taking: Reported on 05/21/2024) 30 Tablet 0 metoprolol Succinate (TOPROL-XL) 25 MG TABLET SR 24 HR Take 1 Tablet by mouth daily. midodrine (PROAMATINE) 5 MG Tablet Take 5 mg by mouth 3 times daily. naproxen (NAPROSYN) 500 MG Tablet Take 1 Tablet by mouth 2 times daily as needed for Moderate or more severe pain. (Patient not taking: Reported on 05/05/2025) 20 Tablet 0 naproxen (NAPROSYN) 500 MG Tablet Take 1 Tablet by mouth 2 times daily as needed for Mild or more severe pain. (Patient not taking: Reported on 05/21/2024) 20 Tablet 0 omeprazole (PriLOSEC) 20 MG CAPSULE DELAYED RELEASE Take 1 Capsule by mouth daily. (Patient not taking: Reported on 05/21/2024) 30 Capsule 0 omeprazole (PriLOSEC) 40 MG CAPSULE DELAYED RELEASE Take 1 Capsule by mouth daily. (Patient not taking: Reported on 05/21/2024) 30 Capsule 0 sodium chloride 1 GM Tablet Take 1 g by mouth 3 times daily. tiZANidine HCl (Zanaflex) 4 MG Capsule Take 1 Capsule by mouth 3 times daily. (Patient not taking: Reported on 05/05/2025) 90 Capsule 0 Topiramate 50 MG Tablet Take 50 mg by mouth 2 times daily. traMADol (ULTRAM) 50 MG Tablet Take 1-2 Tablets by mouth every 6 hours as needed for Moderate or more severe pain. (Patient not taking: Reported on 05/05/2025) 20 Tablet 0 traMADol (ULTRAM) 50 MG Tablet Take 1-2 Tablets by mouth every 6 hours as needed for Moderate or more severe pain. (Patient not taking: Reported on 05/21/2024) 20 Tablet 0 traZODone (DESYREL) 100 MG Tablet Take 100 mg by mouth nightly. (Patient not taking: Reported on 05/21/2024) [2] Allergies Allergen Reactions Ativan [Lorazepam] Itching Carbamazepine Hallucinations Lacosamide Unknown Macrobid [Nitrofurantoin] Rash Paxil [Paroxetine Hcl] Itching Rocephin [Ceftriaxone] Hives and Itching [3] Past Surgical History: Procedure Laterality Date ATRIAL ABLATION SURGERY 2022 COLONOSCOPY N/A 10/19/2020 Procedure: COLONOSCOPY-NEGATIVE TERMINAL ILEUM, NEGATIVE COLON; Surgeon: Nicholas Barney DO; Location: [facility]; Service: Gastroenterology EGD gastric ulcer repair PACEMAKER PLACEMENT 2013 TUBAL LIGATION 2019 UPPER GASTROINTESTINAL ENDOSCOPY Left 08/24/2020 Procedure: EGD SMALL BOWEL BIOPSY. SALVATORE TEST. GASTRITIS; Surgeon: Nicholas Barney DO; [facility]; Service: Gastroenterology WISDOM TOOTH EXTRACTION [4] No current facility-administered medications on file prior to encounter. Current Outpatient Medications on File Prior to Encounter Medication Sig Dispense Refill albuterol 108 (90 Base) MCG/ACT Aerosol Solution INHALE 2 PUFFS BY MOUTH EVERY 6 TO 8 HOURS NEEDED ARIPiprazole (ABILIFY) 10 MG Tablet Take 10 mg by mouth daily. budesonide-formoterol fumarate (SYMBICORT) 160-4.5 MCG/ACT Aerosol take 2 Puffs by inhalation. buPROPion (WELLBUTRIN) 150 MG XL tablet Take 450 mg by mouth every morning. buPROPion (WELLBUTRIN) 300 MG TABLET SR 24 HR XL tablet Take 300 mg by mouth every morning. busPIRone (BUSPAR) 10 MG Tablet Take 1 Tablet by mouth 2 times daily. clobetasol (TEMOVATE) 0.05 % Solution APPLY TO SCALP 1-2 TIMES DAILY NEEDED. 30 DAYS SUPPLY. (Patient not taking: Reported on 05/05/2025) diclofenac (CATAFLAM) 50 MG Tablet Take 1 Tablet by mouth 2 times daily. (Patient not taking: Reported on 05/21/2024) 20 Tablet 0 Elastic Bandages & Supports (Medical Compression Stockings) Misc 2 Pieces by Does not apply route daily. (Patient not taking: Reported on 05/05/2025) 2 Each 0 escitalopram (LEXAPRO) 10 MG Tablet Take 10 mg by mouth daily. famotidine (PEPCID) 20 MG Tablet Take 1 Tablet by mouth 2 times daily as needed (other). (Patient not taking: Reported on 05/05/2025) 30 Tablet 0 ketorolac (TORADOL) 10 MG Tablet Take 1 Tablet by mouth every 6 hours as needed for Mild or more severe pain. (Patient not taking: Reported on 05/05/2025) 15 Tablet 0 magnesium oxide (MAG-OX) 400 MG Tablet Take 400 mg by mouth 2 times daily. meclizine (ANTIVERT) 25 MG Tablet Take 1 Tablet by mouth 3 times daily as needed for Dizziness. (Patient not taking: Reported on 05/21/2024) 30 Tablet 0 metoprolol Succinate (TOPROL-XL) 25 MG TABLET SR 24 HR Take 1 Tablet by mouth daily. midodrine (PROAMATINE) 5 MG Tablet Take 5 mg by mouth 3 times daily. naproxen (NAPROSYN) 500 MG Tablet Take 1 Tablet by mouth 2 times daily as needed for Moderate or more severe pain. (Patient not taking: Reported on 05/05/2025) 20 Tablet 0 naproxen (NAPROSYN) 500 MG Tablet Take 1 Tablet by mouth 2 times daily as needed for Mild or more severe pain. (Patient not taking: Reported on 05/21/2024) 20 Tablet 0 omeprazole (PriLOSEC) 20 MG CAPSULE DELAYED RELEASE Take 1 Capsule by mouth daily. (Patient not taking: Reported on 05/21/2024) 30 Capsule 0 omeprazole (PriLOSEC) 40 MG CAPSULE DELAYED RELEASE Take 1 Capsule by mouth daily. (Patient not taking: Reported on 05/21/2024) 30 Capsule 0 sodium chloride 1 GM Tablet Take 1 g by mouth 3 times daily. tiZANidine HCl (Zanaflex) 4 MG Capsule Take 1 Capsule by mouth 3 times daily. (Patient not taking: Reported on 05/05/2025) 90 Capsule 0 Topiramate 50 MG Tablet Take 50 mg by mouth 2 times daily. traMADol (ULTRAM) 50 MG Tablet Take 1-2 Tablets by mouth every 6 hours as needed for Moderate or more severe pain. (Patient not taking: Reported on 05/05/2025) 20 Tablet 0 traMADol (ULTRAM) 50 MG Tablet Take 1-2 Tablets by mouth every 6 hours as needed for Moderate or more severe pain. (Patient not taking: Reported on 05/21/2024) 20 Tablet 0 traZODone (DESYREL) 100 MG Tablet Take 100 mg by mouth nightly. (Patient not taking: Reported on 05/21/2024) * Glenna Pagan - 05/05/2025 3:04 PM CDT Bed: ED04-01 Expected date: 05/05/25 Expected time: 2:59 PM Means of arrival: Ambulance (AFD) Comments: AFD 34 F SYNCOPE documented in this encounter Miscellaneous Notes * PatientPass Patient Instructions - Sena Lon Wrightony, - 05/05/2025 5:26 PM CDT Images from the original note were not included. Patient Education Table of Contents Syncope, Adult To view videos and all your education online visit, [email or web address] or scan this QR code with your smartphone. Access to this content will in one year. Syncope, Adult Syncope refers to a condition in which a person temporarily loses consciousness. Syncope may also be called fainting or passing out. It is caused by a sudden decrease in blood flow to the brain. Thiscan happen for a variety of reasons. Most causes of syncope are not dangerous. It can be triggered by things such as needle sticks, seeing blood, pain, or intense emotion. However, syncope can also be a sign of a serious medical problem, such as a heart abnormality. Other causes can include dehydration, migraines, or taking medicines that lower blood pressure. Your health care provider may do tests to find the reason why you are having syncope. If you faint, get medical help right away. Call your local emergency services (911 in the [place] Follow these instructions at home: Pay attention to any changes in your symptoms. Take these actions to stay safe and to help relieve your symptoms: Knowing when you may be about to faint Signs that you may be about to faint include: ? Feeling dizzy, weak, light-headed, or like the room is spinning. ? Feeling nauseous. ? Seeing spots or seeing all white or all black in your field of vision. ? Having cold, clammy skin or feeling warm and sweaty. ? Hearing ringing in the ears (tinnitus). If you start to feel like you might faint, sit or lie down right away. If sitting, put your head down between your legs. If lying down, raise (elevate) your feet above the level of your heart. ? Breathe deeply and steadily. Wait until all the symptoms have passed. ? Have someone stay with you until you feel stable. Medicines Take [id number] and prescription medicines only as told by your health care provider. If you are taking blood pressure or heart medicine, get up slowly and take several minutes to sit and then stand. This can reduce dizziness and decrease the risk of syncope. Lifestyle Do not drive, use machinery, or play sports until your health care provider says it is okay. Do not drink alcohol. Do not use any products that contain nicotine or tobacco. These products include cigarettes, chewing tobacco, and vaping devices, such as e-cigarettes. If you need help quitting, ask your health careprovider. Avoid hot tubs and saunas. General instructions Talk with your health care provider about your symptoms. You may need to have testing to understandthe cause of your syncope. Drink enough fluid to keep your urine pale yellow. Avoid prolonged standing. If you must stand for a long time, do movements such as: ? Moving your legs. ? Crossing your legs. ? Flexing and stretching your leg muscles. ? Squatting. Keep all follow-up visits. This is important. Contact a health care provider if: You have episodes of near fainting. Get help right away if: You faint. You hit your head or are injured after fainting. You have any of these symptoms that may indicate trouble with your heart: ? Fast or irregular heartbeats (palpitations). ? Unusual pain in your chest, abdomen, or back. ? Shortness of breath. You have a seizure. You have a severe headache. You are confused. You have vision problems. You have severe weakness or trouble walking. You are bleeding from your mouth or rectum, or you have black or tarry stool. These symptoms may represent a serious problem that is an emergency. Do not wait to see if your symptoms will go away. Get medical help right away. Call your local emergency services (911 in the [place] Do not drive yourself to the hospital. Summary Syncope refers to a condition in which a person temporarily loses consciousness. Syncope may also be called fainting or passing out. It is caused by a sudden decrease in blood flow to the brain. Signs that you may be about to faint include dizziness, feeling light-headed, feeling nauseous, sudden vision changes, or cold, clammy skin. Even though most causes of syncope are not dangerous, syncope can be a sign of a serious medical problem. Get help right away if you faint. If you start to feel like you might faint, sit or lie down right away. If sitting, put your head down between your legs. If lying down, raise (elevate) your feet above the level of your heart. This information is not intended to replace advice given to you by your health care provider. Make sure you discuss any questions you have with your health care provider. Document Released: 2006-09-03 Document Updated: 2022-01-11 Document Reviewed: 2022-01-12 [employer] Patient Education ? 2024 [employer] documented in this encounter Plan of Treatment Upcoming Encounters Date Type Department Care Team (Late st Contact Info) Description 05/07/2025 2:00 PM CDT Physical Therapy [facility] at [facility] [address] [facility], [address] [phone] Waylon Aragon MD [address] [facility] [address] [place] [address] Mariana Guerrero, PT [place] 05/12/2025 1:30 PM CDT Physical Therapy [facility] at [address], [address] [phone] Waylon Aragon MD [address] [facility] [address] [place] [address] Polo Edwards, PT [place] 05/15/2025 1:15 PM CDT Physical Therapy [facility] at [facility] [address] [facility], [address] [place] [phone] Waylon Aragon MD [address] [facility] [place] [address] Mariana Guerrero, PT [place] 05/19/2025 1:30 PM CDT Physical Therapy [facility] [address] [place] [address] Waylon Aargon MD [address] [facility] [address] [place] [address] Polo Edwards, PT [place] documented as of this encounter Procedures Procedure Name Priority Date/Time Associated Diagnosis Comments TROPONIN I, HIGH SENSITIVITY (HSTRP) STAT 05/05/2025 3:20 PM CDT CBC WITH AUTO DIFFERENTIAL STAT 05/05/2025 3:20 PM CDT CMP (COMPREHENSIVE METABOLIC PANEL) STAT 05/05/2025 3:20 PM CDT COMPLETE BLOOD COUNT (CBC) WITH DIFF STAT 05/05/2025 3:20 PM CDT POCT GLUCOSE STAT 05/05/2025 3:12 PM CDT EKG 12 LEAD STAT 05/05/2025 3:00 PM CDT EKG SCAN 05/05/2025 12:00 AM CDT documented in this encounter Results * (ABNORMAL) CBC with Auto Differential (05/05/2025 3:20 PM CDT) WBC 12.85(H) 4.00 - 12.00 10(3)/mcL 05/05/2025 3:[address] [facility] RBC 4.53 3.80 - 5.30 10(6)/mcL 05/05/2025 3:[address] [facility] HEMOGLOBIN (HGB) 12.8 12.0 - 15.8 g/dL 05/05/2025 3:29 PM CDT [facility] HEMATOCRIT (HCT) 40.8 36.0 - 47.0 % 05/05/2025 3:29 PM CDT [facility] MCV 90.1 82.0 - 96.0 fL 05/05/2025 3:29 PM CDT [facility] MCH 28.3 26.0 - 34.0 pg 05/05/2025 3:29 PM CDT [facility] MCHC 31.4 31.0 - 36.0 g/dL 05/05/2025 3:29 PM CDT [facility] PLATELET COUNT 335 140 - 440 10(3)/mcL 05/05/2025 3:29 PM CDT [facility] RDW 13.3 11.8 - 15.5 % 05/05/2025 3:29 PM CDT [facility] MPV 9.9 9.7 - 12.4 fL 05/05/2025 3:29 PM CDT [facility] NEUTROPHILS 76.9(H) 47.0 - 73.0 % 05/05/2025 3:29 PM CDT [facility] LYMPHOCYTES 14.4(L) 18.0 - 42.0 % 05/05/2025 3:29 PM CDT [facility] MONOCYTES 4.3 4.0 - 12.0 % 05/05/2025 3:29 PM CDT [facility] EOSINOPHILS 3.5 0.0 - 5.0 % 05/05/2025 3:29 PM CDT [facility] BASOPHILS 0.5 0.0 - 1.0 % 05/05/2025 3:29 PM CDT [facility] IMMATURE GRANULOCYTE 0.4 0.0 - 0.4 % 05/05/2025 3:29 PM CDT [facility] ABSOLUTE NEUTROPHILS 9.89(H) 1.60 - 7.70 10(3)/mcL 05/05/2025 3:29 PM CDT [facility] ABSOLUTE LYMPHOCYTES 1.85 1.30 - 3.20 10(3)/mcL 05/05/2025 3:29 PM CDT [facility] ABSOLUTE MONOCYTES 0.55 0.20 - 1.00 10(3)/mcL 05/05/2025 3:29 PM CDT [facility] ABSOLUTE EOSINOPHIL 0.45(H) 0.00 - 0.40 10(3)/mcL 05/05/2025 3:29 PM CDT [facility] ABSOLUTE BASOPHILS 0.06 0.00 - 0.10 10(3)/mcL 05/05/2025 3:29 PM CDT [facility] ABSOLUTE IMMATURE GRANULOCYTE 0.05(H) 0.00 - 0.03 10 (3) mcL. 05/05/2025 3:29 PM CDT [facility] NRBC PER 100 WBC 0 05/05/20 3:29 PM CDT [facility] Blood Venipuncture / Unknown 05/05/2025 3:20 PM CDT 05/05/2025 3:25 PM CDT us Lon Shetty DO HEMATOLOGY ORDERABLES F inal Result [facility] [place] [address] * TROPONIN I, HIGH SENSITIVITY (HSTRP) (05/05/2025 3:20 PM CDT) TROPONIN I, HIGH SENSITIVITY- [place] <2.7 <=14.0 ng/L 05/05/2025 3:51 PM CDT [facility] Comment: High-sensitivity troponin I results are reported in ng/L making the result appear to be 1,000 times higher than the contemporary troponin I value which is reported in ng/ml. Results from [place]. Blood Venipuncture / Unknown 05/05/2025 3:20 PM CDT 05/05/2025 3:25 PM CDT us Lon Shetty DO CHEMISTRY ORDERABLES Fi nal Result [facility] [place] [address] * (ABNORMAL) CMP (Comprehensive Metabolic Panel) (05/05/2025 3:20 PM CDT) SODIUM 140 136 - 145 mmol/L 05/05/2025 3:47 PM CDT [facility] POTASSIUM 4.3 3.5 - 5.1 mmol/L 05/05/2025 3:47 PM CDT [facility] CHLORIDE 108(H) 98 - 107 mmol/L 05/05/2025 3:47 PM CDT [facility] CO2, VENOUS 25 22 - 30 mmol/L 05/05/2025 3:47 PM CDT [facility] ANION GAP 11.3 <18.0 mmol/L 05/05/2025 3:47 PM CDT [facility] GLUCOSE 86 70 - 99 mg/dL 05/05/2025 3:47 PM CDT [facility] BUN 9 5 - 18 mg/dL 05/05/2025 3:47 PM CDT [facility] CREATININE, BLOOD 0.88 0.60 - 1.00 mg/dL 05/05/2025 3:47 PM CDT [facility] BUN/CREATININE RATIO 10(L) 12 - 20 ratio 05/05/2025 3:47 PM CDT [facility] TOTAL PROTEIN 7.2 6.0 - 8.0 g/dL 05/05/2025 3:47 PM CDT [facility] ALBUMIN 3.7 3.5 - 5.0 g/dL 05/05/2025 3:47 PM CDT [facility] A/G RATIO 1.1 1.0 - 2.2 05/05/2025 3:47 PM CDT [facility] CALCIUM 8.4(L) 8.7 - 10.5 mg/dL 05/05/2025 3:47 PM CDT [facility] T BILI 0.3 0.2 - 1.2 mg/dL 05/05/2025 3:47 PM CDT [facility] SGOT (AST) 31 <43 U/L 05/05/2025 3:47 PM CDT [facility] SGPT (ALT) 22 <56 U/L 05/05/2025 3:47 PM CDT [facility] ALKALINE PHOSPHATASE 90 40 - 150 U/L 05/05/2025 3:47 PM CDT [facility] GFR, ESTIMATED >60 >=60 05/05/2025 3:47 PM CDT [facility] Comment: Creatinine Clearance is the preferred criteria for selecting drug dose adjustments in renally impaired patients. The GFR is provided as additional pertinent clinical information. GFR is reported in mL/min/1.73 sq m. Calculation based on the 2020 Chronic Kidney Disease Epidemiology Collaboration (CKD-EPI) equation refit without adjustment for race. GFR, EST. >60 >=60 025 3:47 PM CDT [facility] Comment: Creatinine Clearance is the preferred criteria for selecting drug dose adjustments in renally impaired patients. The GFR is provided as additional pertinent clinical information. GFR is reported in mL/min/1.73 sq m. Calculation based on the 2009 Chronic Kidney Disease Epidemiology Collaboration (CKD-EPI). GFR, EST. NONAFRICAN >60 >=60 05/05/2025 3:47 PM CDT [facility] Comment: Creatinine Clearance is the preferred criteria for selecting drug dose adjustments in renally impaired patients. The GFR is provided as additional pertinent clinical information. GFR is reported in mL/min/1.73 sq m. Calculation based on the 2009 Chronic Kidney Disease Epidemiology Collaboration (CKD-EPI). Blood Venipuncture / Unknown 05/05/2025 3:20 PM CDT 05/05/2025 3:25 PM CDT us Lon Shetty DO CHEMISTRY ORDERABLES Fi nal Result [facility] [place] [address] * POCT Glucose (05/05/2025 3:12 PM CDT) GLUCOSE,BEDSIDE POCT 84 70 - 99 mg/dL 05/05/2025 3:12 PM CDT [facility] Comment:Patient RN Performed Blood 05/05/2025 3:12 PM CDT 05/05/2025 3:12 PM CDT us None Provider POINT OF CARE TESTING Final Resu lt Performing Organization Address [facility] Co de Phone Number [facility] [place] [place] [address] * EKG 12 LEAD (05/05/2025 3:00 PM CDT) Ventricular Rate 95 BPM EXTERNAL EKG Atrial Rate 95 BPM EXTERNAL EKG P-R Interval 238 ms EXTERNAL EKG QRS Duration 162 ms EXTERNAL EKG Q-T Duration 438 ms EXTERNAL EKG QTC CALCULATION 550 ms EXTERNAL EKG P Sterling -6 degrees EXTERNAL EKG R Sterling -60 degrees EXTERNAL EKG T Sterling 66 degrees EXTERNAL EKG 05/05/2025 3:00 PM CDT Impressions EXTERNAL EKG - 05/05/2025 3:43 PM CDT AV dual-paced rhythm with prolonged AV conduction Abnormal ECG When compared with ECG of 20-MAR-2025 14:40, Electronic ventricular pacemaker has replaced Sinus rhythm Confirmed by YAS XIONG ([id number]) on 05/05/2025 3:43:53 PM Narrative Procedure Note Yas Xiong MD - 05/05/2025 IMPRESSION: AV dual-paced rhythm with prolonged AV conduction Abnormal ECG When compared with ECG of 20-MAR-2025 14:40, Electronic ventricular pacemaker has replaced Sinus rhythm Confirmed by YAS XIONG ([id number]) on 05/05/2025 3:43:53 PM us Lon Shetty DO IMG ECG ORDERABLES Soni l Result EXTERNAL EKG * EKG SCAN (05/05/2025 12:00 AM CDT) 05/05/2025 us Provider Scan IMG ECG ORDERABLES Final Result RESULTING AGENCY documented in this encounter Visit Diagnoses Diagnosis Syncope- Primary Syncope and collapse documented in this encounter Administered Medications Inactive Administered Medications - up to 3 most recent administrations Medication Order MAR Action Action Date Dose Rate Site 0.9 % sodium chloride solution at 999 mL/hr, Intravenous, ONCE, 1 dose, On Sun05/05/25 at 1600 New Bag 05/05/2025 3:40 PM CDT 1,000 mL 999 mL/hr acetaminophen (TYLENOL) tablet 650 mg 650 mg, Oral, ONCE, 1 dose, On Sun05/05/25 at 1600, Maximum dose of acetaminophen is 4000 mg from all sources in 24 hours. Given 05/05/2025 3:39 PM CDT 650 mg naproxen (NAPROSYN) tablet 500 mg 500 mg, Oral, ONCE, 1 dose, On Sun05/05/25 at 1800 Given 05/05/2025 5:40 PM CDT 500 mg documented in this encounter Active and Recently Administered Medications Times are shown in CDT. Scheduled Medication Order 05/03/2025 05/04/2025 05/05/2025 0.9 % sodium chloride solution (COMPLETED) at 999 mL/hr, Intravenous, ONCE, 1 dose, On Sun05/05/25 at 1600 1540 (New Bag - Prov ider: Luli Nieves RN)1725 (Stopped - Provider: Luli Nieves RN) acetaminophen (TYLENOL) tablet 650 mg (COMPLETED) 650 mg, Oral, ONCE, 1 dose, On Sun05/05/25 at 1600, Maximum dose of acetaminophen is 4000 mg from all sources in 24 hours. 1539 (Given - Provid er: Luli Nieves RN) naproxen (NAPROSYN) tablet 500 mg (COMPLETED) 500 mg, Oral, ONCE, 1 dose, On Sun05/05/25 at 1800 1740 (Given - Provid er: Navya Hare RN) documented in this encounter Care Teams Tree Surgeon Helper Relationship Specialty Start Date End Date Provider, None [place] PCP - General 05/05/25 Isaias Whelan MD #[address] [address] Consulting Physician Colon and Rectal Surgery 05/16/24 documented as of this encounter
--- NOTE | ~2025-05-06 | XR_ITS ---
Portable chest x-ray Comparison: 02/19/2025 Clinical History: Shortness of breath Findings: Lungs are clear, without focal consolidation or pleural effusion. Cardiomediastinal silhouette is stable, with pacemaker device. Bones and soft tissues are unremarkable. Impression: Clear lungs. Reviewed, dictated and finalized at location . Impression: Clear lungs.
--- OUTSIDE RECORDS SUMMARY | 2025-05-06 08:36 | XMS_ITS | Encounter Summary ---
Author Organization [facility] Address [address] [place] [address] Phone Care Team Providers Care Soils Technician Name Role Phone Isaias Whelan MD Unavailable Provider, None Primary Care Provider Unavailabl e Reason for Visit * Reason Comments Loss of Consciousness Encounter Details Date Type Department Care Team (Late st Contact Info) Description 05/06/2025 8:36 AM CDT - 05/06/2025 10:32 AM CDT Emergency [facility] Emergency [address] [place] [id number] Yovani Ascencio MD #[address] [place] [address] Syncope, unspecified syncope type Discharge Disposition: Discharged [...] Sign Reading Time Taken Comments Blood Pressure 109/73 05/06/2025 10:15 AM CDT Pulse 66 05/06/2025 10:15 AM CDT Temperature 36.8 C (98.3 F) 05/06/2025 8:41 AM CDT Respiratory Rate 23 05/06/2025 10:15 AM CDT Oxygen Saturation 100% 05/06/2025 10:15 AM CDT Inhaled Oxygen Concentration - - Weight 138.3 kg (305 lb) 05/06/2025 8:41 AM CDT Height 162.6 cm (5' 4) 05/06/2025 8:41 AM CDT Body Mass Index 52.35 05/06/2025 8:41 AM CDT documented in this encounter Discharge Instructions * Discharge Instructions* Yovani Ascencio MD - 05/06/2025 10:18 AM CDT As we discussed, your work-up today did not reveal a reason to be admitted to the hospital. Nevertheless, you still will require close follow-up for your symptoms today. It is very important that youfollow-up with your primary care doctor within the next 3 days. Please come back immediately if youhave any high fever, severe pain, shortness of breath, weakness, persistent vomiting, worsening of symptoms, new symptoms, inability to obtain appropriate follow-up, or anything else concerning to you. documented in this encounter Medications at Time [...] as of this encounter ED Notes * Elizabet Vila RN - 05/06/2025 10:31 AM CDT Patient discharged. Discharge instructions and patient educational material reviewed with patient; questions and concerns addressed; patient verbalizes understanding, using teach back. Patient was given 0 prescriptions. Patient discharged per wheelchair mode with as responsible libertarian. * Elizabet Vila RN - 05/06/2025 8:55 AM CDT Pt medicated per provider orders. Pt educated on intended effects and side effects of medication and verbalized understanding, able to provide teach back of education. * Yovani Ascencio MD - 05/06/2025 8:40 AM CDT Chief Complaint Patient presents with Loss of Consciousness This is a 34-year-old female with a history of POTS and sick sinus syndrome and frequent ED visits for syncopal events who comes after syncopal event. Patient states that she was at the bus stop whenshe began to feel a numbness in her leg and subsequently lost consciousness. EMS was called and began administering her fluids. She notes some ongoing lightheadedness and some chest discomfort. No foc al weakness or numbness at this time. States that her blood pressure medication was increased earlier this month. Has been trying to follow-up with primary care and/or cardiology. She was seen here yesterday and had a workup including a full panel of labs and troponin that were unremarkable. Loss of Consciousness Current Medications[1] Allergies[2] Past Medical History Positives [...] Resource Needs: Low Risk (05/17/2024) Received from [facility] Overall Financial Resource Strain (CARDIA) Difficulty of Paying Living Expenses: Not very hard Food Insecurity Needs: Food Insecurity Present (05/17/2024) Received from [facility] Hunger Vital Sign Within the past 12 months, you worried that your food would run out before you got the money to buymore.: Sometimes true Within the past 12 months, the food you bought just didn't last and you didn't have money to get more.: Never true Transportation Needs: No Transportation Needs (05/17/2024) Received from [facility] PRAPARE - Transportation Lack of Transportation (Medical): No Lack of Transportation (Non-Medical): No Physical Activity: Not on file Stress: No Stress Concern Present (05/17/2024) Received from [facility] [employer] [place] [employer] - Occupational Stress Questionnaire Feeling of Stress : Not at all Social Integration: Not on file Personal Safety: Low Risk (05/06/2025) Personal Safety Feels Unsafe at Home or Work/School: no Feels Threatened by Someone: no Does Anyone Try to Keep You From Having Contact with Others or Doing Things Outside Your Home?: no Physical Signs of Abuse Present: no Housing Stability: Not on file BP 107/66 Pulse 69 Temp 98.3 ??F (36.8 ??C) (Tympanic) Resp 22 Ht 5' 4 (1.626 m) Wt 305 lb (138.3 kg) LMP 04/14/2025 (Exact Date) Comment: tubal ligation SpO2 100% BMI 52.35 kg/m?? Review of Systems Physical Exam Vitals and nursing note reviewed. Constitutional: Comments: Well-appearing female in no acute distress. HENT: Head: Normocephalic and atraumatic. Nose: Nose normal. Mouth/Throat: Mouth: Mucous membranes are moist. Eyes: Extraocular Movements: Extraocular movements intact. Conjunctiva/sclera: Conjunctivae normal. Cardiovascular: Rate and Rhythm: Normal rate and regular rhythm. Pulses: Normal pulses. Heart sounds: Normal heart sounds. Pulmonary: Effort: Pulmonary effort is normal. Breath sounds: Normal breath sounds. Abdominal: General: Bowel sounds are normal. There is no distension. Palpations: Abdomen is soft. Tenderness: There is no abdominal tenderness. Musculoskeletal: General: Normal range of motion. Cervical back: Normal range of motion and neck supple. Right lower leg: No edema. Left lower leg: No edema. Skin: General: Skin is warm and dry. Capillary Refill: Capillary refill takes less than 2 seconds. Neurological: General: No focal deficit present. Mental Status: She is oriented to person, place, and time. Cranial Nerves: No cranial nerve deficit. Sensory: No sensory deficit. Motor: No weakness. Psychiatric: Mood and Affect: Mood normal. Procedures EKG/rhythm strip at 8:49 AM: Atrial paced rhythm, rate of 100, right bundle branch block, no obvious ST segment changes per my read. Recent Results (from the past 24 hours) EKG 12 LEAD Collection Time: 05/05/25 3:00 PM Result Value Ref Range Ventricular Rate 95 BPM Atrial Rate 95 BPM P-R Interval 238 ms QRS Duration 162 ms Q-T Duration 438 ms QTC CALCULATION 550 ms P [place] -6 degrees R [place] -60 degrees T [place] 66 degrees POCT Glucose Collection Time: 05/05/25 [...] PER 100 WBC 0 Imaging Results None Medical Decision Making This is a 34-year-old female with history as above who comes in due to a syncopal episode. Differential diagnoses to consider in this patient include but are not limited to: vasovagal episode vs orthostatic syncope vs seizure vs cardiac arrhythmia/ischemia or structural disease vs neurologic/CVA/TIA etiology vs dehydration vs infection vs electrolyte imbalance vs metabolic derangement vs toxicological/medication related etiology vs psychiatric/psychological. Suspect likely an orthostatic and/orvasovagal syncope exacerbated by her underlying POTS. Will plan to check an EKG to assess for any signs of ischemia or arrhythmia. Will administer fluids for her symptoms as well as some nausea medication. Given that she had a full panel of blood work yesterday in the emergency department and therewere no concerns at that time, I do not see an indication to repeat the blood work but we will workto improve her symptoms. Clinical Impression 1. Syncope, unspecified syncope type Disposition: Discharge ED Course as of 05/06/25 1018 SunMay 06, 2025 1016 Patient has remained hemodynamically stable and nontoxic, awake and alert and in no distress. Her EKG does not show any obvious acute findings. She has been given fluids for her POTS exacerbation. Will plan to discharge at this time. Recommended that she follow-up with primary care within the next 2 weeks and return if any new or worsening symptoms. Note: Portions of this chart may have been completed with voice recognition software and may contain slight errors unrecognizable by [...] NEGATIVE COLON; Surgeon: Nicholas Barney DO; Location: [facility]; Service: Gastroenterology EGD gastric ulcer repair PACEMAKER PLACEMENT 2014 TUBAL LIGATION 2019 UPPER GASTROINTESTINAL ENDOSCOPY Left 08/24/2020 Procedure: EGD SMALL BOWEL BIOPSY. SALVATORE TEST. GASTRITIS; Surgeon: Nicholas Barney DO; [facility]; Service: Gastroenterology WISDOM TOOTH EXTRACTION * Elizabet Vila RN - 05/06/2025 8:40 AM CDT Pt presents to ED for complaint of passing out at the bus stop today. Pt has a hx of POTS and syncope. Pt was just seen here yesterday for syncope and had a full work up then discharged home. EMS established an 18 g IV in pt's LAC. ERP at bedside and states pt will get an EKG and medications then be reevaluated. Pt aware of plan of care. VSS. No distress noted. Pt placed on the monitors. Pt resting in stretcher with call light in reach. documented in this encounter Plan of Treatment Upcoming Encounters Date Type Department Care Team (Late st Contact Info) Description 05/07/2025 2:00 PM CDT Physical Therapy [facility] [address] [facility] [place] [address] Waylon Aragon MD [address] [place] [address] Mariana Guerrero, PT [place] 05/12/2025 1:30 PM CDT Physical Therapy [facility] at [address], [address] [place] [phone] Waylon Aragon MD [address] [place] [address] [place] [address] Polo Edwards, PT [place] 05/15/2025 1:15 PM CDT Physical Therapy [facility] at [address], [place] [phone] Waylon Aragon MD [address] [place] [address] Mariana Guerrero, PT [place] 05/19/2025 1:30 PM CDT Physical Therapy [facility] [address], [address] [place] [phone] Waylon Aragon MD [address] [place] [address] Polo Edwards, PT [place] Pending Results Name Type Priority Associated Diagnoses Date /Time EKG 12 LEAD ECG STAT 05/06/2025 8: 49 AM CDT Scheduled Orders Name Type Priority Associated Diagnoses Orde r Schedule EKG 12 LEAD ECG STAT One Time for 1 Occurrences starting 05/06/2025 until 05/06/2025 documented as of this encounter Procedures Procedure Name Priority Date/Time Associated Diagnosis Comments EKG SCAN 05/06/2025 12:00 AM CDT documented in this encounter Results * EKG SCAN (05/06/2025 12:00 AM CDT) 05/06/2025 us Provider Scan IMG ECG ORDERABLES Final Result RESULTING AGENCY documented in this encounter Visit Diagnoses Diagnosis Syncope, unspecified syncope type- Primary documented in this encounter Administered Medications Inactive Administered Medications - up to 3 most recent administrations Medication Order MAR Action Action Date Dose Rate Site acetaminophen (TYLENOL) tablet 975 mg 975 mg, Oral, ONCE, 1 dose, On Sun05/06/25 at 0900, Maximum dose of acetaminophen is 4000 mg from all sources in 24 hours. Given 05/06/2025 8:54 AM CDT 975 mg ACETAMINOPHEN 325 MG PO TABS 1 dose, Starting on Sun05/06/25 at 0845, Until Sun05/06/25 at 0854, Created by cabinet override ondansetron (ZOFRAN) injection 4 mg 4 mg, Intravenous, ONCE, 1 dose, On Sun05/06/25 at 0900 Given 05/06/2025 8:54 AM CDT 4 mg sodium chloride 0.9 % 1,000 mL IV bolus Intravenous, ONCE, 1 dose, On Sun05/06/25 at 0900, Administer over 0.5 Hours New Bag 05/06/2025 8:53 AM CDT 2000 mL/hr documented in this encounter Active and Recently Administered Medications Times are shown in CDT. Scheduled Medication Order 05/04/2025 05/05/2025 05/06/2025 acetaminophen (TYLENOL) tablet 975 mg (COMPLETED) 975 mg, Oral, ONCE, 1 dose, On Sun05/06/25 at 0900, Maximum dose of acetaminophen is 4000 mg from all sources in 24 hours. 0854 (Given - Provid er: Elizabet Vila, SAMANTA) ondansetron (ZOFRAN) injection 4 mg (COMPLETED) 4 mg, Intravenous, ONCE, 1 dose, On Sun05/06/25 at 0900 0854 (Given - Provid er: Elizabet Vila RN) sodium chloride 0.9 % 1,000 mL IV bolus (COMPLETED) Intravenous, ONCE, 1 dose, On Sun05/06/25 at 0900, Administer over 0.5 Hours 0853 (New Bag - Prov ider: Elizabet Vila RN)0930 (Stopped - Provider: Elizabet Vila RN) documented in this encounter Care Teams Soils Technician Relationship Specialty Start Date End Date Provider, None [place] PCP - General 05/05/25 Isaias Whelan MD #[address] [address] Consulting Physician Colon and Rectal Surgery 05/16/24 documented as of this encounter
--- OUTSIDE RECORDS SUMMARY | 2025-05-06 23:44 | XMS_ITS | Clinical Summary ---
Author Organization 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 2 Each 2 Active Additional Information Patient not taking.Reported on 05/05/2025 omeprazole (PriLOSEC) 40 MG CAPSULE DELAYED RELEASE Take 1 Capsule by mouth daily. 30 Capsule 3 Active Additional Information Patient not taking.Reported on 05/05/2025 diclofenac (CATAFLAM) 50 MG Tablet Take 1 Tablet by mouth 2 times daily. 20 Tablet 3 Active Additional Information Patient not taking.Reported on 05/05/2025 traMADol (ULTRAM) 50 MG TabletIndicatio ns:Chest wall pain Take 1-2 Tablets by mouth every 6 hours as needed for Moderate or more severe pain. 20 Tablet 3 Active Additional Information Patient not taking.Reported on 05/05/2025 naproxen (NAPROSYN) 500 MG Tablet Take 1 Tablet by mouth 2 times daily as needed for Mild or more severe pain. 20 Tablet 3 Active Additional Information Patient not taking.Reported on 05/05/2025 Topiramate 50 MG Tablet Take 50 mg by mouth 2 times daily. Active omeprazole (PriLOSEC) 20 MG CAPSULE DELAYED RELEASE Take 1 Capsule by mouth daily. 30 Capsule 4 Active Additional Information Patient not taking.Reported on 05/05/2025 meclizine (ANTIVERT) 25 MG Tablet Take 1 Tablet by mouth 3 times daily as needed for Dizziness. 30 Tablet 4 Active Additional Information Patient not taking.Reported on 05/05/2025 albuterol 108 (90 Base) MCG/ACT Aerosol Solution [...] more severe pain. 15 Tablet 4 Active Additional Information Patient not taking.Reported on 05/05/2025 tiZANidine HCl (Zanaflex) 4 MG Capsule Take 1 Capsule by mouth 3 times daily. 90 Capsule 5 Active Additional Information Patient not taking.Reported on 05/05/2025 traMADol (ULTRAM) 50 MG TabletIndicatio ns:Back pain Take 1-2 Tablets by mouth every 6 hours as needed for Moderate or more severe pain. 20 Tablet 5 Active Additional Information Patient not taking.Reported on 05/05/2025 famotidine (PEPCID) 20 MG Tablet Take 1 Tablet by mouth 2 times daily as needed (other). 30 Tablet 5 Active Additional Information Patient not taking.Reported on 05/05/2025 naproxen (NAPROSYN) 500 MG Tablet Take 1 Tablet by mouth 2 times daily as needed for Moderate or more severe pain. 20 Tablet 5 Active Additional Information Patient not taking.Reported on 05/05/2025 midodrine (PROAMATINE) 5 MG Tablet Take 5 mg by mouth 3 times daily. 5 Active sodium chloride 1 GM Tablet Take 1 g by mouth 3 times daily. Active buPROPion (WELLBUTRIN) 150 MG XL tablet Take 450 mg by mouth every morning. Active ARIPiprazole (ABILIFY) 10 MG Tablet Take 10 mg by mouth daily. Active acetaminophen (TYLENOL) 325 MG Tablet Take 3 Tablets by mouth every 4 hours as needed for Fever for up to 10 days. 5 04/28/20 25 Active Problems Problem Noted Date Diagnosed Date Syncope 12/12/2024 Encounters Date Type Department Care Team Description 05/06/2025 8:36 AM CDT - 05/06/2025 10:32 AM CDT Emergency [facility] Emergency [address] [place] [address] Yovani Ascencio MD Syncope, unspecified syncope type Discharge Disposition: Discharged to home or Selfcare 05/06/2025 Travel 05/05/2025 3:03 PM CDT - 05/05/2025 5:48 PM CDT Emergency [facility] Emergency [address] [place] [address] Lon Shetty DO Syncope Discharge Disposition: Discharged to home or Selfcare 05/05/2025 2:15 PM CDT Physical Therapy [facility] at [facility] [address], [address] [address] Waylon Aragon MD Kutchma, Joshua J, PT Arrived Discharge Disposition: Discharged to home or Selfcare 05/05/2025 Travel 04/28/2025 Telephone [facility] [address] [place] [address] Polo Edwards, PT Appointment (Same-day cancel) 04/23/2025 Telephone [facility] at [facility] [address] [place] [address] Mariana Guerrero, PT cancelled due to illines 04/21/2025 2:15 PM CDT Physical Therapy [facility] at [address], [address] [place] [phone] Waylon Aragon MD Kutchma, Joshua J, PT Pain in right leg (Primary Dx); Hip weakness Discharge Disposition: Discharged to home or Selfcare 04/18/2025 5:21 PM CDT - 04/18/2025 7:39 PM CDT Emergency [facility] Emergency [address] [place] [address] Delma Sethi APRN, SENIOR ADMINISTRATIVE SUPPORT Pain of right hand Discharge Disposition: Discharged to home or Selfcare 04/18/2025 Travel 04/15/2025 2:30 PM CDT Physical Therapy [facility] at [facility] [address] [place] [address] Waylon Aragon MD Kutchma, Joshua J, PT Pain in right leg (Primary Dx); Hip weakness Discharge Disposition: Discharged to home or Selfcare 04/15/2025 Travel 03/25/2025 1:15 PM CDT Physical Therapy [facility] at [facility] [address] [facility], [address] [place] [address] Waylon Aragon MD Fisher, Debra C, PT Pain in right leg (Primary Dx); Hip weakness; Chronic right-sided low back pain with right-sided sciatica Discharge Disposition: Discharged to home or Selfcare 03/25/2025 Travel 03/20/2025 2:46 PM CDT - 03/20/2025 6:40 PM CDT Emergency [facility] Emergency [address] [place] [address] Delma Sethi APRN, SENIOR ADMINISTRATIVE SUPPORT Chest pain, unspecified type Discharge Disposition: Discharged to home or Selfcare 03/20/2025 Travel 03/17/2025 2:15 PM CDT Physical Therapy [facility] at [address], [address] [address] Waylon Aragon MD Kutchma, Joshua J, PT Chronic right-sided low back pain with right-sided sciatica (Primary Dx); Pain in right leg; Hip weakness Discharge Disposition: Discharged to home or Selfcare 03/17/2025 Plan of Care Documentation [facility] at [address], [address] [address] 03/17/2025 Travel 02/24/2025 3:09 PM CDT - 02/24/2025 4:53 PM CDT Emergency [facility] Emergency [address] [place] [address] Delma Sethi APRN, SENIOR ADMINISTRATIVE SUPPORT Sciatica of right side Discharge Disposition: Discharged to home or Selfcare 02/24/2025 Travel 02/20/2025 3:50 PM CDT - 02/20/2025 5:58 PM CDT Emergency [facility] Emergency [address] [place] [address] Lon Shetty DO Syncope Discharge Disposition: Discharged to home or Selfcare 02/20/2025 Travel 02/11/2025 Transcribe Orders [facility] [address] [place] [address] Waylon Aragon MD Pain in right leg (Primary Dx) from Last 3 Months Family History Medical [...] Mass Index 52.35 05/06/2025 8:41 AM CDT Plan of Treatment Upcoming Encounters Date Type Department Care Team (Late st Contact Info) Description 05/07/2025 2:00 PM CDT Physical Therapy [facility] at [facility] [address] [facility], [address] [place] [address] Waylon Aragon MD [address] [place] [address] Mariana Guerrero, PT [place] 05/12/2025 1:30 PM CDT Physical Therapy [facility] at [address], [address] [place] [address] Waylon Aragon MD [address] [place] [address] Polo Edwards, PT [place] 05/15/2025 1:15 PM CDT Physical Therapy [facility] at [facility] [address] [facility], [facility] [address] [place] [address] Waylon Aragon MD [address] [place] [address] Mariana Guerrero, PT [place] 05/19/2025 1:30 PM CDT Physical Therapy [facility] at [address], [facility] [address] [place] [address] Waylon Aragon MD [address] [place] [address] Polo Edwards, PT [place] Health Maintenance Due Date Last Done Comments Hepatitis C Virus (HCV) Screening 1991 Pap Smear 2012 Human Papillomavirus (HPV) Immunization (1 - 3-dose SCDM series) 2018 Cervical Cancer Screening (CCS) 2021 HPV/Cotest 2021 SARS-COV-2 Immunization (2023- season) 2024 Influenza Immunization (#1) 2025 02/0 02/2024, 07/26/2022, 07/31/2018, Additional history exists Respiratory Syncytial Virus (RSV) Immunization (Adult) (1 - 1-dose 75+ series) 2066 Hepatitis B Immunization Completed 997, 10/22/1996, 08/27/1996 DTaP/Tdap/Td Immunization Discontinued 10/09/2018 TdaP Immunization Completed 10/09/2018 Meningococcal Immunization (ACWY) Aged Out No longer eligible based on patient's age to complete this topic Pneumococcal Immunization Combined Aged Out No longer eligible based on patient's age to complete this topic Rotavirus Immunization Aged Out No lo nger eligible based on patient's age to complete this topic Procedures Procedure Name Priority Date/Time Associated Diagnosis Comments EKG SCAN 05/06/2025 12:00 AM CDT CBC WITH AUTO DIFFERENTIAL STAT 05/05/2025 3:20 PM CDT TROPONIN I, HIGH SENSITIVITY (HSTRP) STAT 05/05/2025 3:20 PM CDT COMPLETE BLOOD COUNT (CBC) WITH DIFF STAT 05/05/2025 3:20 PM CDT CMP (COMPREHENSIVE METABOLIC PANEL) STAT 05/05/2025 3:20 PM CDT POCT GLUCOSE STAT 05/05/2025 3:12 PM CDT EKG 12 LEAD STAT 05/05/2025 3:00 PM CDT EKG SCAN 05/05/2025 12:00 AM CDT XR TIBIA & FIBULA RIGHT STAT 04/18/2025 6:19 PM CDT XR ANKLE 3 OR MORE VIEWS RIGHT STAT 04/18/2025 6:19 PM CDT XR HAND 2 VIEWS RIGHT STAT 04/18/2025 6:18 PM CDT TROPONIN I, HIGH SENSITIVITY (HSTRP) STAT 03/20/2025 4:47 PM CDT XR CHEST SINGLE VIEW PORTABLE STAT 03/20/2025 3:10 PM CDT GOLD TOP TUBE STAT 03/20/2025 3:04 PM CDT BLUE TOP TUBE STAT 03/20/2025 3:04 PM CDT CBC WITH AUTO DIFFERENTIAL STAT 03/20/2025 3:04 PM CDT EXTRA TUBES STAT 03/20/2025 3:04 PM CDT TROPONIN I, HIGH SENSITIVITY (HSTRP) STAT 03/20/2025 3:04 PM CDT COMPLETE BLOOD COUNT (CBC) WITH DIFF STAT 03/20/2025 3:04 PM CDT CMP (COMPREHENSIVE METABOLIC PANEL) STAT 03/20/2025 3:04 PM CDT EKG 12 LEAD STAT 03/20/2025 2:40 PM CDT EKG SCAN 03/20/2025 12:00 AM CDT XR WRIST 3 OR MORE VIEWS RIGHT STAT 02/20/2025 5:27 PM CDT POCT URINE HCG () STAT 02/20/2025 5:10 PM CDT CBC WITH AUTO DIFFERENTIAL STAT 02/20/2025 4:05 PM CDT TROPONIN I, HIGH SENSITIVITY (HSTRP) STAT 02/20/2025 4:05 PM CDT COMPLETE BLOOD COUNT (CBC) WITH DIFF STAT 02/20/2025 4:05 PM CDT CMP (COMPREHENSIVE METABOLIC PANEL) STAT 02/20/2025 4:05 PM CDT EKG 12 LEAD STAT 02/20/2025 4:03 PM CDT BLUE TOP TUBE STAT 02/20/2025 2:05 PM CDT EXTRA TUBES STAT 02/20/2025 2:05 PM CDT EKG SCAN 02/20/2025 12:00 AM CDT from Last 3 Months Results * EKG SCAN (05/06/2025 12:00 AM CDT) Only the most recent of4 resultswithin the time period is included. 05/06/2025 us Provider Scan IMG ECG ORDERABLES Final Result Performing Organization Address City/[facility]/ZIP Co de Phone Number RESULTING AGENCY * TROPONIN I, HIGH SENSITIVITY (HSTRP) (05/05/2025 3:20 PM CDT) Only the most recent of4 resultswithin the time period is included. Pathologist [facility] TROPONIN I, HIGH SENSITIVITY- [place] <2.7 <=14.0 ng/L 05/05/2025 3:51 PM CDT [facility] Comment: High-sensitivity troponin I results are reported in ng/L making the result appear to be 1,000 times higher than the contemporary troponin I value which is reported in ng/ml. Results from [place]. Blood Venipuncture / Unknown 05/05/2025 3:20 PM CDT 05/05/2025 3:25 PM CDT us Lon Shetty DO CHEMISTRY ORDERABLES Fi nal Result [facility] [address] [place] [address] * (ABNORMAL) CBC with Auto Differential (05/05/2025 3:20 PM CDT) Only the most recent of3 resultswithin the time period is included. WBC 12.85(H) 4.00 - 12.00 10(3)/mcL 05/05/2025 3:29 PM CDT [facility] RBC 4.53 3.80 - 5.30 10(6)/[facility] 05/05/2025 3:29 PM CDT [facility] HEMOGLOBIN (HGB) 12.8 12.0 - 15.8 g/dL 05/05/2025 3:29 PM CDT [facility] HEMATOCRIT (HCT) 40.8 36.0 - 47.0 % 05/05/2025 3:29 PM CDT [facility] MCV 90.1 82.0 - 96.0 fL 05/05/2025 3:29 PM CDT [facility] MCH 28.3 26.0 - 34.0 pg 05/05/2025 3:29 PM CDT [facility] MCHC 31.4 31.0 - 36.0 g/dL 05/05/2025 3:29 PM CDT [facility] PLATELET COUNT 335 140 - 440 10(3)/[facility] 05/05/2025 3:29 PM CDT [facility] RDW 13.3 11.8 - 15.5 % 05/05/2025 3:29 PM CDT [facility] MPV 9.9 9.7 - 12.4 fL 05/05/2025 3:29 PM CDT [facility] NEUTROPHILS 76.9(H) 47.0 - 73.0 % 05/05/2025 3:29 PM CDT [facility] LYMPHOCYTES 14.4(L) 18.0 - 42.0 % 05/05/2025 3:29 PM CDT [facility] MONOCYTES 4.3 4.0 - 12.0 % 05/05/2025 3:29 PM CDT [facility] EOSINOPHILS 3.5 0.0 - 5.0 % 05/05/2025 3:29 PM CDT [facility] BASOPHILS 0.5 0.0 - 1.0 % 05/05/2025 3:29 PM CDT [facility] IMMATURE GRANULOCYTE 0.4 0.0 - 0.4 % 05/05/2025 3:29 PM CDT [facility] ABSOLUTE NEUTROPHILS 9.89(H) 1.60 - 7.70 10(3)/[facility] 05/05/2025 3:29 PM CDT [facility] ABSOLUTE LYMPHOCYTES 1.85 1.30 - 3.20 10(3)/[facility] 05/05/2025 3:29 PM CDT [facility] ABSOLUTE MONOCYTES 0.55 0.20 - 1.00 10(3)/[facility] 05/05/2025 3:29 PM CDT [facility] ABSOLUTE EOSINOPHIL 0.45(H) 0.00 - 0.40 10(3)/[facility] 05/05/2025 3:29 PM CDT [facility] ABSOLUTE BASOPHILS 0.06 0.00 - 0.10 10(3)/[facility] 05/05/2025 3:29 PM CDT [facility] ABSOLUTE IMMATURE GRANULOCYTE 0.05(H) 0.00 - 0.03 10 (3) [facility]. 05/05/2025 3:29 PM CDT [facility] NRBC PER 100 WBC 0 05/05/20 3:29 PM CDT [facility] Blood Venipuncture / Unknown 05/05/2025 3:20 PM CDT 05/05/2025 3:25 PM CDT us Lon Shetty DO HEMATOLOGY ORDERABLES F inal Result [facility] [address] [place] [address] * (ABNORMAL) CMP (Comprehensive Metabolic Panel) (05/05/2025 3:20 PM CDT) Only the most recent of3 resultswithin the time period is included. SODIUM 140 136 - 145 mmol/L 05/05/2025 3:47 PM CDT [facility] POTASSIUM 4.3 3.5 - 5.1 mmol/L 05/05/2025 3:47 PM CDT [facility] CHLORIDE 108(H) 98 - 107 mmol/L 05/05/2025 3:47 PM CDT [facility] CO2, VENOUS 25 22 - 30 mmol/L 05/05/2025 3:47 PM CDT [facility] ANION GAP 11.3 <18.0 mmol/L 05/05/2025 3:47 PM CDT [facility] GLUCOSE 86 70 - 99 mg/dL 05/05/2025 3:47 PM CDT [facility] BUN 9 5 - 18 mg/dL 05/05/2025 3:47 PM CDT [facility] CREATININE, BLOOD 0.88 0.60 - 1.00 mg/dL 05/05/2025 3:47 PM CDT [facility] BUN/CREATININE RATIO 10(L) 12 - 20 ratio 05/05/2025 3:47 PM CDT [facility] TOTAL PROTEIN 7.2 6.0 - 8.0 g/dL 05/05/2025 3:47 PM CDT [facility] ALBUMIN 3.7 3.5 - 5.0 g/dL 05/05/2025 3:47 PM CDT [facility] A/G RATIO 1.1 1.0 - 2.2 05/05/2025 3:47 PM CDT [facility] CALCIUM 8.4(L) 8.7 - 10.5 mg/dL 05/05/2025 3:47 PM CDT [facility] T BILI 0.3 0.2 - 1.2 mg/dL 05/05/2025 3:47 PM CDT [facility] SGOT (AST) 31 <43 U/L 05/05/2025 3:47 PM CDT [facility] SGPT (ALT) 22 <56 U/L 05/05/2025 3:47 PM CDT [facility] ALKALINE PHOSPHATASE 90 40 - 150 U/L 05/05/2025 3:47 PM CDT [facility] GFR, ESTIMATED >60 >=60 05/05/2025 3:47 PM CDT [facility] Comment: Creatinine Clearance is the preferred criteria for selecting drug dose adjustments in renally impaired patients. The GFR is provided as additional pertinent clinical information. GFR is reported in mL/min/1.73 sq m. Calculation based on the 2020 Chronic Kidney Disease Epidemiology Collaboration (CKD-EPI) equation refit without adjustment for race. GFR, EST. >60 >=60 025 3:47 PM CDT [facility] Comment: Creatinine Clearance is the preferred criteria for selecting drug dose adjustments in renally impaired patients. The GFR is provided as additional pertinent clinical information. GFR is reported in mL/min/1.73 sq m. Calculation based on the 2009 Chronic Kidney Disease Epidemiology Collaboration (CKD-EPI). GFR, EST. NONAFRICAN >60 >=60 05/05/2025 3:47 PM CDT [facility] Comment: Creatinine Clearance is the preferred [...] Shetty DO CHEMISTRY ORDERABLES Fi nal Result [facility] [address] [place] [address] * POCT Glucose (05/05/2025 3:12 PM CDT) GLUCOSE,BEDSIDE POCT 84 70 - 99 mg/dL 05/05/2025 3:12 PM CDT [facility] Comment:Patient RN Performed Blood 05/05/2025 3:12 PM CDT 05/05/2025 3:12 PM CDT us None Provider POINT OF CARE TESTING Final Resu lt [facility] [address] [place] [address] * EKG 12 LEAD (05/05/2025 3:00 PM CDT) Only the most recent of3 resultswithin the time period is included. Ventricular Rate 95 BPM EXTERNAL EKG Atrial Rate 95 BPM EXTERNAL EKG P-R Interval 238 ms EXTERNAL EKG QRS Duration 162 ms EXTERNAL EKG Q-T Duration 438 ms EXTERNAL EKG QTC CALCULATION 550 ms EXTERNAL EKG P [place] -6 degrees EXTERNAL EKG R [place] -60 degrees EXTERNAL EKG T [place] 66 degrees EXTERNAL EKG 05/05/2025 3:00 PM CDT Impressions EXTERNAL EKG - 05/05/2025 3:43 PM CDT AV dual-paced rhythm with prolonged AV conduction Abnormal ECG When compared with ECG of 20-MAR-2025 14:40, Electronic ventricular pacemaker has replaced Sinus rhythm Confirmed by YAS XIONG ([id number]) on 05/05/2025 3:43:53 PM Narrative Procedure Note Yas Xiong MD - 05/05/2025 IMPRESSION: AV dual-paced rhythm with prolonged AV conduction Abnormal ECG When compared with ECG of 20-MAR-2025 14:40, Electronic ventricular pacemaker has replaced Sinus rhythm Confirmed by YAS XIONG ([id number]) on 05/05/2025 3:43:53 PM us Longal Jose Sena DO IMG ECG ORDERABLES Soni l Result EXTERNAL EKG * XR TIBIA & FIBULA RIGHT (04/18/2025 6:19 PM CDT) Anatomical Region Laterality Modality LOWER EXTREMITY, leg Right Digital Rad iography 04/18/2025 6:53 PM CDT Impressions 04/18/2025 6:55 PM CDT IMPRESSION: No acute osseous abnormality. Narrative 04/18/2025 6:55 PM CDT EXAM DESCRIPTION: XR HAND 2 VIEWS RIGHT; XR ANKLE 3 OR MORE VIEWS RIGHT; XR TIBIA and FIBULA RIGHT REASON FOR STUDY: Patient states I tripped on air and fell onto her right side today. C/o right hand pain ; Patient states I tripped on air and fell onto her right side today. c/o right ankle pain ; Patient states I tripped on air and fell onto her right side today. c/o right lower leg pain TECHNIQUE: 2 radiographic view(s) of the right hand 3 radiographic views of the right tibia and fibula 3 radiographic views of the right ankle . COMPARISON: 02/20/2025 FINDINGS: Right hand: The alignment is normal. There is no acute fracture. Joint spaces are normal. No focal bone lesions or erosions. No radiodense foreign bodies. Right ankle and right tibia and fibula: There is no acute fracture or acute traumatic malalignment. Joint spaces are normal. No focal bone lesions. No ankle effusion. No radiodense foreign bodies. THIS IS AN ELECTRONICALLY VERIFIED FINAL REPORT 04/18/2025 6:53 PM - Electronically signed by Genesis Tamayo M.D. AT: AT Report ID: [id number] Reading Location: [id number] Procedure Note Genesis Tamayo MD - 04/18/2025 EXAM DESCRIPTION: XR HAND 2 VIEWS RIGHT; XR ANKLE 3 OR MORE VIEWS RIGHT; XR TIBIA and FIBULA RIGHT REASON FOR STUDY: Patient states I tripped on air and fell onto her right side today. C/o right hand pain ; Patient states I tripped on air and fell onto her right side today. c/o right ankle pain ; Patient states I tripped on air and fell onto her right side today. c/o right lower leg pain TECHNIQUE: 2 radiographic view(s) of the right hand 3 radiographic views of the right tibia and fibula 3 radiographic views of the right ankle . COMPARISON: 02/20/2025 FINDINGS: Right hand: The alignment is normal. There is no acute fracture. Joint spaces are normal. No focal bone lesions or erosions. No radiodense foreign bodies. Right ankle and right tibia and fibula: There is no acute fracture or acute traumatic malalignment. Joint spaces are normal. No focal bone lesions. No ankle effusion. No radiodense foreign bodies. THIS IS AN ELECTRONICALLY VERIFIED FINAL REPORT 04/18/2025 6:53 PM - Electronically signed by Genesis Tamayo M.D. AT: AT Report ID: [id number] Reading Location: [id number] IMPRESSION: No acute osseous abnormality. us Delma Sethi APRN, SHIV IMG DIAGNOSTIC ORD ERABLES Final Result * XR ANKLE 3 OR MORE VIEWS RIGHT (04/18/2025 6:19 PM CDT) Anatomical Region Laterality Modality LOWER EXTREMITY, ankle Right Digital R adiography 04/18/2025 6:53 PM CDT Impressions 04/18/2025 6:55 PM CDT IMPRESSION: No acute osseous abnormality. Narrative 04/18/2025 6:55 PM CDT EXAM DESCRIPTION: XR HAND 2 VIEWS RIGHT; XR ANKLE 3 OR MORE VIEWS RIGHT; XR TIBIA and FIBULA RIGHT REASON FOR STUDY: Patient states I tripped on air and fell onto her right side today. C/o right hand pain ; Patient states I tripped on air and fell onto her right side today. c/o right ankle pain ; Patient states I tripped on air and fell onto her right side today. c/o right lower leg pain TECHNIQUE: 2 radiographic view(s) of the right hand 3 radiographic views of the right tibia and fibula 3 radiographic views of the right ankle . COMPARISON: 02/20/2025 FINDINGS: Right hand: The alignment is normal. There is no acute fracture. Joint spaces are normal. No focal bone lesions or erosions. No radiodense foreign bodies. Right ankle and right tibia and fibula: There is no acute fracture or acute traumatic malalignment. Joint spaces are normal. No focal bone lesions. No ankle effusion. No radiodense foreign bodies. THIS IS AN ELECTRONICALLY VERIFIED FINAL REPORT 04/18/2025 6:53 PM - Electronically signed by Genesis Tamayo M.D. AT: AT Report ID: [id number] Reading Location: [id number] Procedure Note Genesis Tamayo MD - 04/18/2025 EXAM DESCRIPTION: XR HAND 2 VIEWS RIGHT; XR ANKLE 3 OR MORE VIEWS RIGHT; XR TIBIA and FIBULA RIGHT REASON FOR STUDY: Patient states I tripped on air and fell onto her right side today. C/o right hand pain ; Patient states I tripped on air and fell onto her right side today. c/o right ankle pain ; Patient states I tripped on air and fell onto her right side today. c/o right lower leg pain TECHNIQUE: 2 radiographic view(s) of the right hand 3 radiographic views of the right tibia and fibula 3 radiographic views of the right ankle . COMPARISON: 02/20/2025 FINDINGS: Right hand: The alignment is normal. There is no acute fracture. Joint spaces are normal. No focal bone lesions or erosions. No radiodense foreign bodies. Right ankle and right tibia and fibula: There is no acute fracture or acute traumatic malalignment. Joint spaces are normal. No focal bone lesions. No ankle effusion. No radiodense foreign bodies. THIS IS AN ELECTRONICALLY VERIFIED FINAL REPORT 04/18/2025 6:53 PM - Electronically signed by Genesis Tamayo M.D. AT: AT Report ID: [id number] Reading Location: [id number] IMPRESSION: No acute osseous abnormality. us Delma Sethi APRN, SHIV IMG DIAGNOSTIC ORD ERABLES Final Result * XR HAND 2 VIEWS RIGHT (04/18/2025 6:18 PM CDT) Anatomical Region Laterality Modality UPPER EXTREMITY, hand Right Digital Ra diography 04/18/2025 6:53 PM CDT Impressions 04/18/2025 6:55 PM CDT IMPRESSION: No acute osseous abnormality. Narrative 04/18/2025 6:55 PM CDT EXAM DESCRIPTION: XR HAND 2 VIEWS RIGHT; XR ANKLE 3 OR MORE VIEWS RIGHT; XR TIBIA and FIBULA RIGHT REASON FOR STUDY: Patient states I tripped on air and fell onto her right side today. C/o right hand pain ; Patient states I tripped on air and fell onto her right side today. c/o right ankle pain ; Patient states I tripped on air and fell onto her right side today. c/o right lower leg pain TECHNIQUE: 2 radiographic view(s) of the right hand 3 radiographic views of the right tibia and fibula 3 radiographic views of the right ankle . COMPARISON: 02/20/2025 FINDINGS: Right hand: The alignment is normal. There is no acute fracture. Joint spaces are normal. No focal bone lesions or erosions. No radiodense foreign bodies. Right ankle and right tibia and fibula: There is no acute fracture or acute traumatic malalignment. Joint spaces are normal. No focal bone lesions. No ankle effusion. No radiodense foreign bodies. THIS IS AN ELECTRONICALLY VERIFIED FINAL REPORT 04/18/2025 6:53 PM - Electronically signed by Genesis Tamayo M.D. AT: AT Report ID: [id number] Reading Location: [id number] Procedure Note Genesis Tamayo MD - 04/18/2025 EXAM DESCRIPTION: XR HAND 2 VIEWS RIGHT; XR ANKLE 3 OR MORE VIEWS RIGHT; XR TIBIA and FIBULA RIGHT REASON FOR STUDY: Patient states I tripped on air and fell onto her right side today. C/o right hand pain ; Patient states I tripped on air and fell onto her right side today. c/o right ankle pain ; Patient states I tripped on air and fell onto her right side today. c/o right lower leg pain TECHNIQUE: 2 radiographic view(s) of the right hand 3 radiographic views of the right tibia and fibula 3 radiographic views of the right ankle . COMPARISON: 02/20/2025 FINDINGS: Right hand: The alignment is normal. There is no acute fracture. Joint spaces are normal. No focal bone lesions or erosions. No radiodense foreign bodies. Right ankle and right tibia and fibula: There is no acute fracture or acute traumatic malalignment. Joint spaces are normal. No focal bone lesions. No ankle effusion. No radiodense foreign bodies. THIS IS AN ELECTRONICALLY VERIFIED FINAL REPORT 04/18/2025 6:53 PM - Electronically signed by Genesis Tamayo M.D. AT: AT Report ID: [id number] Reading Location: [id number] IMPRESSION: No acute osseous abnormality. us Delma Sethi APRN, CNP IMG DIAGNOSTIC ORD ERABLES Final Result * XR CHEST SINGLE VIEW PORTABLE (03/20/2025 3:10 PM CDT) Anatomical Region Laterality Modality Chest N/A Computed Radiogr aphy 03/20/2025 3:22 PM CDT Impressions 03/20/2025 3:24 PM CDT IMPRESSION: No acute cardiopulmonary abnormality. Narrative 03/20/2025 3:24 PM CDT EXAM DESCRIPTION: XR CHEST SINGLE VIEW PORTABLE REASON FOR STUDY: pt c/o chest pain with tightness and pressure, SOB, and nausea x 2 hours PROCESSING TECHNOLOGIST. hx of POTS, asthma, seizures TECHNIQUE: 1 radiographic view(s) of the chest. COMPARISON: 12/12/2024 FINDINGS: LUNGS: No focal opacity, pleural effusion, or pneumothorax. HEART/MEDIASTINUM: Cardiac silhouette normal in size. Dual lead right chest cardiac pacer device. Mediastinal and hilar contours appear normal. LINES/TUBES: None. BONES: No acute osseous abnormality. THIS IS AN ELECTRONICALLY VERIFIED FINAL REPORT 03/20/2025 3:22 PM - Electronically signed by Ramos Norris M.D. KR: ISAEL Report ID: [id number] Reading Location: [id number] Procedure Note Ramos Norris MD - 03/20/2025 EXAM DESCRIPTION: XR CHEST SINGLE VIEW PORTABLE REASON FOR STUDY: pt c/o chest pain with tightness and pressure, SOB, and nausea x 2 hours PROCESSING TECHNOLOGIST. hx of POTS, asthma, seizures TECHNIQUE: 1 radiographic view(s) of the chest. COMPARISON: 12/12/2024 FINDINGS: LUNGS: No focal opacity, pleural effusion, or pneumothorax. HEART/MEDIASTINUM: Cardiac silhouette normal in size. Dual lead right chest cardiac pacer device. Mediastinal and hilar contours appear normal. LINES/TUBES: None. BONES: No acute osseous abnormality. THIS IS AN ELECTRONICALLY VERIFIED FINAL REPORT 03/20/2025 3:22 PM - Electronically signed by Ramos Norris M.D. KR: ISAEL Report ID: [id number] Reading Location: [place] [id number] IMPRESSION: No acute cardiopulmonary abnormality. Evita Varma MD IMG DIAGNOSTIC ORDERABLE S Final Result * Gold Top Tube (03/20/2025 3:04 PM CDT) Blood No Phlebotomy Charged / Unknown 03/20/2025 3:04 PM CDT 03/20/2025 3:16 PM CDT us Delma Sethi APRN, SENIOR ADMINISTRATIVE SUPPORT CHEMISTRY ORDERABL ES Final Result Performing Organization Address [facility] Co de Phone Number [facility] [place] [address] * Blue Top Tube (03/20/2025 3:04 PM CDT) Only the most recent of2 resultswithin the time period is included. Blood No Phlebotomy Charged / Unknown 03/20/2025 3:04 PM CDT 03/20/2025 3:16 PM CDT us Delma Sethi APRN, SENIOR ADMINISTRATIVE SUPPORT HEMATOLOGY ORDERAB LES Final Result Performing Organization Address City/[facility]/ZIP Co de Phone Number [facility] [place] [address] * XR WRIST 3 OR MORE VIEWS RIGHT (02/20/2025 5:27 PM CDT) Anatomical Region Laterality Modality UPPER EXTREMITY, wrist Right Digital R adiography 02/20/2025 7:04 PM CDT Impressions 02/20/2025 7:07 PM CDT IMPRESSION: No acute osseous abnormality. Narrative 02/20/2025 7:07 PM CDT EXAM DESCRIPTION: XR WRIST 3 OR MORE VIEWS RIGHT REASON FOR STUDY: Syncopal episode with fall and right wrist injury with pain. TECHNIQUE: 3 radiographic view(s) of the right wrist . COMPARISON: Right wrist radiograph 01/31/2024. FINDINGS: BONES/JOINTS: No acute fracture. No subluxation. No suspicious osseous lesions. Joint spaces maintained. SOFT TISSUES: No acute abnormality. THIS IS AN ELECTRONICALLY VERIFIED FINAL REPORT 02/20/2025 7:04 PM - Electronically signed by Sagar Sanderson M.D. PASCUAL: PASCUAL Report ID: [id number] Reading Location: [id number] Procedure Note Sagar Sanderson MD - 02/20/2025 EXAM DESCRIPTION: XR WRIST 3 OR MORE VIEWS RIGHT REASON FOR STUDY: Syncopal episode with fall and right wrist injury with pain. TECHNIQUE: 3 radiographic view(s) of the right wrist . COMPARISON: Right wrist radiograph 01/31/2024. FINDINGS: BONES/JOINTS: No acute fracture. No subluxation. No suspicious osseous lesions. Joint spaces maintained. SOFT TISSUES: No acute abnormality. THIS IS AN ELECTRONICALLY VERIFIED FINAL REPORT 02/20/2025 7:04 PM - Electronically signed by Sagar Sanderson M.D. PASCUAL: PASCUAL Report ID: [id number] Reading Location: [id number] IMPRESSION: No acute osseous abnormality. us Lon Shetty DO IMG DIAGNOSTIC ORDERABL ES Final Result * POCT Urine HCG () (02/20/2025 5:10 PM CDT) POC URINE Negative POC URINE CONTROL Cooking Chef Pass Urine 02/20/2025 5:10 PM CDT Lon Shetty DO POINT OF CARE TESTING ( MANUAL) Final Result from Last 3 Months Insurance MEDICAID [place] Advance Directives * Full Code (Latest Code [...] measures to stabilize the patient. Care Teams Truck Trailer Final Inspector Relationship Specialty Start Date End Date Provider, None [place] PCP - General 05/05/25 Isaias Whelan MD [address] [facility] [address] Consulting Physician Colon and Rectal Surgery 05/16/24
--- OUTSIDE RECORDS SUMMARY | 2025-05-06 23:44 | XMS_ITS | Encounter Summary ---
Author Organization [employer] Care Team Providers Care Business Management Professor Name Role Phone Isaias Whelan MD Unavailable Provider, None Primary Care Provider Unavailabl e Encounter Details Date Type Department Care Team (Latest Contact Info) Description 05/05/2025 Travel Social History Tobacco Use Types Packs/Day Years [...] as of this encounter Plan of Treatment Upcoming Encounters Date Type Department Care Team (Late st Contact Info) Description 05/07/2025 2:00 PM CDT [facility] [address] [place] [phone] Waylon Aragon MD [address] [place] [address] [address] [place] [address] Mariana Guerrero, PT [place] 05/12/2025 1:30 PM CDT [facility] [address] [place] [phone] Waylon Aragon MD [address] [facility] [address] [place] [address] Polo Edwards, PT [place] 05/15/2025 1:15 PM CDT [facility] [address] [facility] [place] [address] Waylon Aragon MD [address] [place] [address] [address] [place] [address] Mariana Guerrero, PT [place] 05/19/2025 1:30 PM CDT Physical Therapy [facility] [address] [facility] [place] [phone] Waylon Aragon MD [address] [place] [address] [address] [place] [address] Polo Edwards, PT [place] documented as of this encounter Visit Diagnoses Not on filedocumented in this encounter Care Teams Business Management Professor Relationship Specialty Start Date End Date Provider, None [place] PCP - General 05/05/25 Isaias Whelan MD #2 [facility] [address] [place] [address] Consulting Physician Colon and Rectal Surgery 05/16/24 documented as of this encounter
--- OUTSIDE RECORDS SUMMARY | 2025-05-06 23:44 | XMS_ITS | Encounter Summary ---
Author Organization [employer] Care Team Providers Care Buildings And Grounds Supervisor Name Role Phone Isaias Whelna MD Unavailable Provider, None Primary Care Provider Unavailabl e Encounter Details Date Type Department Care Team (Latest Contact Info) Description 05/06/2025 Travel Social History Tobacco Use Types Packs/Day [...] Description 05/07/2025 2:00 PM CDT [facility] [address] [place] [phone] Waylon Aragon MD [address] [place] [address] [address] [place] [address] Mariana Guerrero, PT [place] 05/12/2025 1:30 PM CDT [facility] [address] [place] [phone] Waylon Aragon MD [address] [facility] [address] [place] [address] Polo Edwards, PT [place] 05/15/2025 1:15 PM CDT [facility] [address] [facility] [place] [address] Waylon Aragon MD [address] [place] [address] [address] [place] [address] Mariana Guerrero, PT [place] 05/19/2025 1:30 PM CDT Physical Therapy [facility] at [facility] [address] [facility] [place] [address] Waylon Aragon MD [address] [place] [address] [address] [place] [address] Polo Edwards, PT [place] documented as of this encounter Visit Diagnoses Not on filedocumented in this encounter Care Teams Buildings And Grounds Supervisor Relationship Specialty Start Date End Date Provider, None [place] PCP - General 05/05/25 Isaias Whelan MD #2 [facility] [address] [place] [address] Consulting Physician Colon and Rectal Surgery 05/16/24 documented as of this encounter
[2025-05-06 23:48] VITALS: BP 128/92; PULSE 85; RESP 18; TEMP 36.7; O2SAT 98
--- NOTE | 2025-05-07 | ECG_ITS ---
Test Date: 2025-05-07 00:02:15 Measurements Intervals [place] Rate: 80 P: 37 VT: 132 QRS: -2 QRSD: 142 T: 3 QT: 402 QTc: 464 Interpretive Statements SINUS RHYTHM RIGHT BUNDLE BRANCH BLOCK ABNORMAL ECG Compared to ECG 02/19/2025 20:31:13 Sinus arrhythmia no longer present Electronically Signed On 05-07-2025 07:37:18 CDT by Paul Casey D.O.
[2025-05-07 00:04] LABS: Hematocrit 37.8 % (37.0-47.0); Hemoglobin 11.5 g/dL (12.0-15.0); Immature Granulocyte Percent A 0.1 % (0-0.5); Lymphocytes Absolute Auto 2.92 K/mm3 (0.9-3.2); Mean Corpuscular HGB Conc 30.4 g/dl (32-36); Mean Corpuscular Hemoglobin 27.6 pg (26-34); Mean Corpuscular Volume 90.9 fl (80-100); Nucleated Red Blood Cells Absolute Auto 0.000 K/mm3 (0.0-0.012); Nucleated Red Blood Cells Perc 0.0 % (0.0-0.2); Platelet Count Result 276 k/mm3 (150-375); Red Blood Count 4.16 M/mm3 (4.2-5.4); White Blood Count 8.1 K/mm3 (4.5-10.0)
[2025-05-07 00:12] LABS: Alanine Aminotransferase 23 U/L (6-35); Albumin Level 3.6 g/dL (3.5-5.1); Alkaline Phosphatase 87 U/L (38-126); Anion Gap 6 mmol/L (4-12); Aspartate Amino Transferase 26 U/L (14-36); Bilirubin,Total 0.1 mg/dL (0.2-1.3); Blood Urea Nitrogen 6 mg/dL (7-17); Calcium 8.5 mg/dL (8.4-10.2); Carbon Dioxide 24 mmol/L (22-30); Chloride 107 mmol/L (98-107); Estimated CRCL calculation 108 ml/min; Estimated Glomerular Filt Rate > 60; Glucose 134 mg/dL (65-110); Potassium 3.8 mmol/L (3.4-5.0); Sodium 137 mmol/L (137-145); Total Protein 6.8 g/dL (6.3-8.2)
[2025-05-07 00:37] LABS: EDINFLUASCREEN Positive (Negative); EDINFLUBSCREEN Positive (Negative)
[2025-05-07 00:49] LABS: Influenza A QL RT-PCR Negative (Negative); Influenza B QL RT-PCR Negative (Negative); RSV RNA, RT-PCR Negative (Negative); SARS-CoV-2 RNA PCR Negative (Negative)
--- NOTE | 2025-05-07 00:57 | ED.DIZZY ---
HPI - Dizziness General Chief Complaint: Dizziness Stated Complaint: cough, headache, CP, dizzy Time Seen by Provider: 05/06/25 23:53 History of Present Illness HPI Narrative: Patient is a 34-year-old female who presents to the emergency department this evening with multiple complaints. Patient states that she has been having pleuritic chest pain, cough, shortness of breath, chills which have been ongoing for the past 3-4 days. States that the cough is mildly productive. Patient states that her daughter was recently around sick people and is unsure if she picked something up. Patient has been taking [id number] Robitussin for the cough with minimal to no relief. Denies any additional symptoms or concerns at this time. Related Data Home Medications ?Medication ?Instructions ?Recorded ?Confirmed ?Last Taken ?Type bupropion HCl 100 mg tablet 300 mg PO DAILY 06/15/21 05/02/24 Unknown History budesonide-formoterol HFA 160 2 puff inhalation Q12H 07/11/22 05/02/24 Unknown History mcg-4.5 mcg/actuation aerosol inhaler (Symbicort) metoprolol succinate 25 mg 25 mg PO DAILY 07/11/22 05/02/24 Unknown History tablet,extended release 24 hr albuterol sulfate 90 mcg/actuation 2 puff inhalation QID PRN 01/18/23 05/02/24 Unknown History aerosol inhaler Shortness Of Breath Or Wheezing flecainide 100 mg tablet 100 mg PO Q12H 01/18/23 05/02/24 Unknown History magnesium oxide 400 mg PO BID 01/18/23 05/02/24 Unknown History buspirone 10 mg tablet 10 mg PO BID 05/02/24 05/02/24 Unknown History clobetasol 0.05 % scalp solution See Rx Instructions .Route .COMPLEX 05/02/24 05/02/24 Unknown History escitalopram oxalate 10 mg tablet 10 mg PO DAILY 05/02/24 05/02/24 Unknown History topiramate 50 mg tablet 50 mg PO DAILY 05/02/24 05/02/24 Unknown History Allergies Allergy/AdvReac Type Severity Reaction Status Date / Time adhesive tape Allergy Mild Rash Verified 05/02/24 11:21 lorazepam Allergy Mild Itching Verified 05/02/24 11:21 paroxetine Allergy Mild Rash Verified 05/02/24 11:21 carbamazepine Allergy Unknown Unknown Verified 05/02/24 11:21 ceftriaxone (From Rocephin) Allergy Unknown Unknown Verified 05/02/24 11:21 lacosamide Allergy Unknown Rash Verified 05/02/24 11:21 Review of Systems Review of Systems: All systems are reviewed and are negative unless stated otherwise in the HPI. [facility] Past Medical History Medical History LILI (obstructive sleep apnea) Postural orthostatic tachycardia syndrome Hemorrhoid UTI (urinary tract infection) H/O cardiac pacemaker Depression Sick sinus syndrome Seizure Anxiety Surgical History Surgical History H/O tubal ligation S/P cardiac pacemaker procedure Family History Family History Mother Family history non-contributory Social History Social History Smoking status: Never smoker Substance use: never Living arrangements: with family Gender identity (if verbalized by the patient): Female Sexual Orientation (if Verbalized by the Patient): Straight or Heterosexual Spiritual care concerns: No Exam Narrative: General: Alert, awake, afebrile, in no acute distress, active cough. HEENT: PERRL, no rhinorrhea, no post nasal drip, oropharynx clear. Neck: Trachea midline, no JVD, no lymphadenopathy. Cardiovascular: Regular rate and rhythm, no murmurs, rubs or gallops, no peripheral edema. Respiratory: Clear to auscultation bilaterally, no tachypnea, no wheezing, no rhonchi, no rubs, no respiratory distress. Abdomen: Soft, nontender, nondistended, no rebound, no guarding, no peritoneal signs. Musculoskeletal: No joint swelling or deformity, normal muscle tone. Skin: No rashes or petechia, no signs of infection. Psychiatric: Alert and oriented, normal behavior and judgment for situation. Neurological: Alert and oriented to person, place, and time. Follows all commands. No focal deficits, speech is clear and fluent. Course Vital Signs Vital signs: Vital Signs Temperature 98.0 F 05/06/25 23:48 Pulse Rate 85 05/06/25 23:48 Respiratory Rate 18 05/06/25 23:48 Blood Pressure 128/92 H 05/06/25 23:48 Pulse Oximetry 98 05/06/25 23:48 Oxygen Delivery Room Air 05/06/25 23:48 Temperature 98.0 F 05/06/25 23:48 Pulse Rate 85 05/06/25 23:48 Respiratory Rate 18 05/06/25 23:48 Blood Pressure 128/92 H 05/06/25 23:48 Pulse Oximetry 98 05/06/25 23:48 Oxygen Delivery Room Air 05/06/25 23:48 MDM - Dizziness MDM Narrative Medical decision making narrative: The patient was evaluated by myself in the emergency department. History is obtained from patient who is an independent historian and physical exam was performed. External medical records were reviewed at this time. IV was established and pertinent tests were ordered. EKG was obtained which revealed sinus rhythm rate of 80 beats per minute, no evidence of acute ischemia. EKG was independently interpreted by me and is currently pending official cardiology read. Laboratory results obtained revealing no acute process. Imaging studies obtained included CXR which was independently interpreted by me revealing no acute cardiopulmonary process, which is pending final radiology interpretation. Differential diagnosis considerations include URI, infectious process such as pneumonia, dehydration, electrolyte derangements. Comorbidities impacting this visit include none. I have evaluated and discussed social determinants of health with the patient that could potentially impact subsequent diagnosis and treatment plans. On repeat assessment of the patient, reevaluation revealed that the patient is doing well and is in no acute distress. Patient symptoms have improved since she arrived to our emergency department. Repeat vital signs were all reviewed and noted to be stable. Differential diagnosis and treatment plan were discussed with the patient at bedside. Patient agrees with discussion and after shared medical decision making agrees with discharge. All questions were answered to the patient's satisfaction. Patient will follow up with her PCP in 3-5 days. Script for this line prazosin to patient's pharmacy to use as needed for cough. Patient was provided with strict return precautions and instructed to return to the emergency department if any new or worsening symptoms develop. The patient was discharged in stable condition. Lab Data 05/06/25 23:55 05/06/25 23:55 Labs: Lab Results 05/06/25 05/07/25 05/07/25 Range/Units 23:55 00:05 00:08 WBC 8.1 (4.5-10.0) K/mm3 RBC 4.16 L (4.2-5.4) M/mm3 Hgb 11.5 L (12.0-15.0) g/dL Hct 37.8 (37.0-47.0) % MCV 90.9 (80-100) fl MCH 27.6 (26-34) pg MCHC 30.4 L (32-36) g/dl RDW 13.6 (11.5-14.5) % Plt Count 276 (150-375) k/mm3 MPV 10.1 (7.4-10.4) fl Immature Gran % (Auto) 0.1 (0-0.5) % Neut % (Auto) 50.7 (45.5-73.1) % Lymph % (Auto) 36.0 (18.3-44.2) % [place] % (Auto) 6.3 (2.6-8.5) % Eos % (Auto) 6.5 H (0-4.4) % Baso % (Auto) 0.4 (0.2-1.2) % Lymph # (Auto) 2.92 (0.9-3.2) K/mm3 [place] # (Auto) 0.5 (0.1-0.6) K/mm3 Eos # (Auto) 0.5 H (0-0.3) K/mm3 Baso # (Auto) 0.0 (0.0-0.1) K/mm3 Abs Immat Gran (auto) 0.01 (0.00-0.031) K/mm3 Absolute Neuts (auto) 4.1 (1.3-6.7) K/mm3 Absolute Nucleated RBC 0.000 (0.0-0.012) K/mm3 Nucleated RBC % 0.0 (0.0-0.2) % Sodium 137 (137-145) mmol/L Potassium 3.8 (3.4-5.0) mmol/L Chloride 107 (98-107) mmol/L Carbon Dioxide 24 (22-30) mmol/L Anion Gap 6 (4-12) mmol/L BUN 6 L D (7-17) mg/dL Creatinine 0.90 (0.7-1.0) mg/dL Estim Creat Clear Calc 108 ml/min Estimated GFR > 60 (59 - ) Glucose 134 H (65-110) mg/dL Calcium 8.5 (8.4-10.2) mg/dL Total Bilirubin 0.1 L (0.2-1.3) mg/dL AST 26 (14-36) U/L ALT 23 (6-35) U/L Alkaline Phosphatase 87 (38-126) U/L Total Protein 6.8 (6.3-8.2) g/dL Albumin 3.6 (3.5-5.1) g/dL Influenza A (RT-PCR) Negative (Negative) POC Influenza A Ag Positive (Negative) POC Influenza B Ag Positive (Negative) Influenza B (RT-PCR) Negative (Negative) RSV (RT-PCR) Negative (Negative) SARS-CoV-2 RNA (RT-PCR) Negative (Negative) Discharge Plan Discharge Clinical Impression: URI (upper respiratory infection) Patient Disposition: Home Condition: Improved Instructions: Antibiotic Form, Upper Respiratory Infection (DC) Additional Instructions: Please follow-up with your family doctor within the next 3-5 days. Return to emergency room if any new or worsening symptoms develop. Use the prescribed Tessalon Perles as needed for cough. Patient Language: Israeli Prescriptions: New benzonatate 200 mg capsule 200 mg PO TID PRN (Reason: cough) Qty: 14 0RF No Action metoprolol succinate 25 mg Tablet Extended Release 24 Hr 25 mg PO DAILY budesonide-formoterol [Symbicort] 160-4.5 mcg/actuation Hfa Aerosol Inhaler 2 puff INHALATION Q12H flecainide 100 mg Tablet 100 mg PO Q12H magnesium oxide 400 mg magnesium Tablet 400 mg PO BID albuterol sulfate 90 mcg/actuation Hfa Aerosol Inhaler 2 puff INHALATION QID PRN (Reason: Shortness Of Breath Or Wheezing) buspirone 10 mg tablet 10 mg PO BID clobetasol 0.05 % solution See Rx Instructions .ROUTE .COMPLEX Rx Instructions: see rx instructions escitalopram oxalate 10 mg tablet 10 mg PO DAILY topiramate 50 mg tablet 50 mg PO DAILY Proctofoam HC 1-1 % foam 1 applic RECTAL QID PRN (Reason: hemorrhoids) Qty: 10 0RF nitrofurantoin monohyd/m-cryst [Macrobid] 100 mg capsule 100 mg PO Q12H 5 Days Qty: 10 0RF Rx Instructions: must administer with a meal/food prednisone 50 mg tablet 50 mg PO DAILY 5 Days Qty: 5 0RF bupropion HCl 100 mg tablet 300 mg PO DAILY Follow-up/Referrals: UNKNOWN,DOCTOR [Primary Care Provider] - 3 Days Time of Disposition: 00:59
[2025-05-07 01:13] VITALS: BP 123/70; PULSE 86; RESP 20; O2SAT 97
== END 2025-05-07 01:16 | disposition home or self-care (01) ==
PROVIDERS: Emergency Provider Emergency Medicine
DX: J06.9 Acute upper respiratory infection, unspecified (principal); Z20.822 Contact with and (suspected) exposure to COVID-19; G47.33 Obstructive sleep apnea (adult) (pediatric); I49.5 Sick sinus syndrome; G90.A Postural orthostatic tachycardia syndrome [POTS]; F32.A Depression, unspecified; F41.9 Anxiety disorder, unspecified; Z95.0 Presence of cardiac pacemaker; Z87.440 Personal history of urinary (tract) infections; Z79.899 Other long term (current) drug therapy; Z79.51 Long term (current) use of inhaled steroids; I45.10 Unspecified right bundle-branch block
CPT/HCPCS: 36415; 71045; 80053; 85025; 87637; 87804; 93005; 99284

== ENCOUNTER 2025-07-15 08:32 | Emergency (ER) | payer OTHER, SELFPAY ==
[2025-07-15 08:36] VITALS: BP 130/60; PULSE 94; RESP 22; TEMP 37.3; O2SAT 97
--- OUTSIDE RECORDS SUMMARY | 2025-07-15 08:55 | XMS_ITS | Encounter Summary ---
Author Organization [facility] Address [address] [place] [address] Care Team Providers Care Gear Machine Operator General Name Role Phone Brenna Fox RN Unavailable [phone] Nely Castro MD Primary Care Provider [phone] Manoj Obregon MD Primary Care Provider [phone] Elvira Jain TEACHER VOCAL-AUTOMOTIVE GENERATOR REPAIRER Unavailable [phone] None, Physician Primary Care Provider Unavailabl e Cristine Harris MD Primary Care Provider [phone] Reason for Visit * Reason Onset Date Comments Patient Requested Call 11/21/2018 Encounter Details Date Type Department Care Team (Late st Contact Info) Description 11/21/2018 Telephone [facility] MATERNAL/ EVALUATION UNIT [facility]. [address] [place] [address] Rupa Humphrey RN Patient Requested Call Social History Tobacco Use Types Packs/Day Years Used Date Smoking Tobacco: Never Smokeless Tobacco: Never Alcohol Use Standard Drinks/Week Comments No 0 (1 standard drink = 0.6 oz pur e alcohol) Comments Yes Sex and Gender Information Value Date Recorded Sex Assigned at Female 01/27/2025 4:39 PM CDT Legal Sex Female 9:20 AM JAVA SYBASE DEVELOPER Gender Identity Not on file Sexual Orientation [...] Entry Date Author No 04/01/2015 1:48 PM CDT Wm Barrientos RN documented in this encounter Miscellaneous Notes * Telephone Encounter - Rupa Grijalva RN - 11/21/2018 8:33 AM CST Pt called with complaints of exhaustion, weakness, can't get off the couch. Pt reports not being able to eat [...] antibiotics for UTI yesterday my pee was orange...I didn't receive any fluids or IV yesterday. Pt was told the SVE yesterday was/70. D/w Dr. Locke, pt to come to [facility] if chest pain and vomiting persist. PO hydration encouraged.Discussed plan with pt, pt agreed to return to [facility] if vomiting persists or chest pain returns. SYBASE DEVELOPER documented in this encounter Plan of Treatment Upcoming Encounters Date Type Department Care Team (Late st Contact Info) Description 07/31/2025 3:00 PM JAVA SYBASE DEVELOPER Office Visit [facility] - Cardiology [address] [facility] [address] [place] [address] Ana Niño MD [address] [place] [phone] 08/05/2025 9:30 AM JAVA SYBASE DEVELOPER Office Visit [facility] - Dermatology [address] [facility], [place] [address] Sheryl Vazquez MD [address] [facility] 3L [place] [address] 09/22/2025 1:00 AM JAVA SYBASE DEVELOPER Clinical Support [facility] - Cardiology [address] [facility] [address] [place] [address] documented as of this encounter Visit Diagnoses Not on filedocumented in this encounter Care Teams Gear Machine Operator General Relationship Specialty Start Date End Date Nely Castro MD [address] [place] [phone] PCP - General 11/01/18 12/04/19 Manoj Obregon MD [address] [place] [address] PCP - General 12/05/19 12/25/24 Elvira Jain, TEACHER VOCAL-AUTOMOTIVE GENERATOR REPAIRER [address] [place] [phone] PCP - Attributed-Mc Medicaid [place]IL 05/18/21 02/28/23 None, Physician PCP - General 12/26/24 03/15/25 Cristine Harris MD [address] [place] [address] PCP - General Family Medicine 03/16/25 Brenna Fox, RN [address] [facility] [address] [place] [address] Beam Warper 03/30/15 documented as of this encounter
--- OUTSIDE RECORDS SUMMARY | 2025-07-15 08:55 | XMS_ITS | Encounter Summary ---
Author Organization [facility] Address [address] [place] [address] Care Team Providers Care Quantitative Consultant Name Role Phone Brenna Fox RN Unavailable [phone] Nely Castro MD Primary Care Provider [phone] Manoj Obregon MD Primary Care Provider [phone] Elvira Jain INDOOR LANDSCAPE ARCHITECT-STRESS TEST TECHNICIAN Unavailable [phone] None, Physician Primary Care Provider Unavailabl e Cristine Harris MD Primary Care Provider [phone] Reason for Visit * Reason Onset Date Comments Patient Requested Call 11/20/2018 Encounter Details Date Type Department Care Team (Late st Contact Info) Description 11/20/2018 Telephone [facility] MATERNAL/ EVALUATION UNIT [facility]. [address] [place] [address] Rupa Humphrey RN Patient Requested Call Social History Tobacco Use Types Packs/Day Years Used Date Smoking Tobacco: Never Smokeless Tobacco: Never Alcohol Use Standard Drinks/Week Comments No 0 (1 standard drink = 0.6 oz pur e alcohol) Comments Yes Sex and Gender Information Value Date Recorded Sex Assigned at Female 01/27/2025 4:39 PM CDT Legal Sex Female 9:20 AM CHEMICAL TESTER Gender Identity Not on file Sexual Orientation [...] ED immediately and has a ride there. ICAL TESTER documented in this encounter Plan of Treatment Upcoming Encounters Date Type Department Care Team (Late st Contact Info) Description 07/31/2025 3:00 PM CHEMICAL TESTER Office Visit [facility] - Cardiology [address] [facility] [place] [address] [place] [phone] Ana Niño MD [address] [place] [phone] 08/05/2025 9:30 AM CHEMICAL TESTER Office Visit [facility] - Dermatology [address] [facility], [place] [phone] Sheryl Vazquez MD [address] [facility] [address]L [place] [address] 09/22/2025 1:00 AM CHEMICAL TESTER Clinical Support [facility] - Cardiology [address] [place] [address] [place] [address] documented as of this encounter Visit Diagnoses Not on filedocumented in this encounter Care Teams Quantitative Consultant Relationship Specialty Start Date End Date Nely Castro MD [address] [place] [phone] PCP - General 11/01/18 12/04/19 Manoj Obregon MD [address] [place], [place] [id number] PCP - General 12/05/19 12/25/24 Elvira Jain, INDOOR LANDSCAPE ARCHITECT-STRESS TEST TECHNICIAN [address] [place] [phone] PCP - Attributed-Cm Medicaid [facility] 05/18/21 02/28/23 None, Physician PCP - General 12/26/24 03/15/25 Cristine Harris MD [address] [place] [address] PCP - General Family Medicine 03/16/25 Brenna Fox, RN [address] [facility] [address] [place] [address] Theater Technician 03/30/15 documented as of this encounter
--- OUTSIDE RECORDS SUMMARY | 2025-07-15 08:55 | XMS_ITS | Clinical Summary ---
Author Organization [facility] Address [address] [place] [address] Care Team Providers Care Dental Appliance Repairer Name Role Phone Sree Aviles MD Primary Care Provider [phone] Allergies Active Allergy Reactions Criticality Noted Date [...] atrial fibrillation 06/14/2023 SVT (supraventricular tachycardia) 06/08/2023 Anxiety 01/26/2020 Overview (12/01/2024): Last Assessment & [...] in: three months with PCP Cardiac condition complicating , antepa rtum 10/24/2018 Ventricular tachycardia, nonsustained 06/28/2018 Obstructive sleep apnea syndrome 11/02/2017 Overview [...] up in: six months Sick sinus syndrome 11/01/2017 Overview (12/01/2024): Last Assessment & Plan: Condition: stable Cardiology follows patient. Continue medications as prescribed and follow up with PCP/specialist as scheduled. Follow up in: six months Seizure disorder 01/09/2017 Overview (12/01/2024): Last Assessment & Plan: Condition: stable Condition is no longer managed with medication. Last seizure was in 2015. No bathing, swimming, operating dangerous machinery, climbing ladders without supervision No driving unless cleared by your health care provider. 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 Gender Identity Not on file Sexual Orientation Not on file Plan of Treatment Health Maintenance Due Date Last Done Comments Cervical Cancer Screening Pa p Smear (Age 30 to 64) Every 3 Years 1991 Annual Physical 1994 Hepatitis A Vaccines (2 of 2 - 2-dose series) 10/21/2006 04/20/2006 Hepatitis C 2009 HPV Vaccines (1 - 3-dose SCD M series) 2018 Cervical Cancer Screening Pa p with HPV Testing (Age 30 to 64) Every 5 Years 2021 Cervical Cancer Screening wi th HPV 2021 COVID-19 Vaccine (2024-2 6 season) 2025 Influenza Adult (#1) 2025 07/26/2022, 07/31/2018, 08/29/2016 DTaP, Tdap and Td Vaccines ( 2 - Td or Tdap) 10/09/2028 10/09/2018 Hepatitis B Vaccines Completed 03/25/1997, 10/22/1996, 08/27/1996 Meningococcal B Vaccine Aged Out No l [...] this topic Medical Devices Implanted Type Area Cullet Trucker Device Identifier Shelf Expiration Date Model / Serial / Lot Pacemaker-Medt Pacemaker Insurance [place] [employer] Care Teams Dental Appliance Repairer Relationship Specialty Start Date End Date Sree Aviles MD [address] [place] [address] PCP - General FAMILY PRACTICE 10/16/24
--- OUTSIDE RECORDS SUMMARY | 2025-07-15 08:55 | XMS_ITS | Encounter Summary ---
Author Organization [facility] Address [address] [place] [address] Phone Care Team Providers Care Offender Job Retention Specialist Name Role Phone Manoj Obregon MD Primary Care Provider [phone] Manoj Obregon MD Primary Care Provider [phone] Manoj Obregon MD Primary Care Provider [phone] Manoj Obregon MD Primary Care Provider Manoj Obregon MD Primary Care Provider [phone] Manoj Obregon MD Primary Care Provider [phone] Linda Santacruz MD Primary Care Provider Alberta Bernardo PT Unavailable [phone] Darlene Obregon MD Primary Care Provider Opal Jensen PT Unavailable Unavailable Delilah Yanez MD Unavailable [phone] Encounter Details Date Type Department Care Team (Late st Contact Info) Description 04/28/2015 Orders Only [facility] CLINCONV Provider, MD Gin [address] [place] [address] Social History Tobacco Use Types Packs/Day Years Used Date Smoking Tobacco: Never Alcohol Use Standard Drinks/Week Comments No 0 (1 standard drink = 0.6 oz pur e alcohol) Comments Unknown Sex and Gender Information Value Date Recorded Sex Assigned at Not on file 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 [place] [address] PCP - General 10/31/16 12/14/16 Manoj Obregon MD [address] [place] [facility] [place] [place] [address] PCP - General 10/29/16 10/30/16 Manoj Obregon MD [address] [place] [facility] [place] [place] [address] PCP - General 02/15/16 10/28/16 Manoj Obregon MD [address] [place] [facility] [place] [place] [address] PCP - General 12/24/15 02/14/16 Manoj Obregon MD [address] [place] [address] PCP - General 03/02/15 12/23/15 Linda Santacruz MD [address] [place] [address] PCP - General 09/23/18 07/23/19 [place] [address] [place] [address] PCP - General Internal Medicine 04/25/22 [place] [address] [place] [address] Physical Therapist Physical Therapy 01/18/22 Opal Jensen, PT Physical Therapist Physical Therapy 06/16/22 Delilah Yanez MD [address] [place] [address] Consulting Physician Cardiology 06/15/23 documented as of this encounter
--- OUTSIDE RECORDS SUMMARY | 2025-07-15 08:55 | XMS_ITS | Encounter Summary ---
Author Organization [facility] Address [address] [facility] [place] [address] Care Team Providers Care Fire Regulator Name Role Phone Brenna Fox RN Unavailable [phone] Manoj Obregon MD Primary Care Provider [phone] Elvira Jain APRN-GENERAL MERCHANDISE SALESPERSON Unavailable None, Physician Primary Care Provider UnavailCristine Rios MD Primary Care Provider [phone] Encounter Details Date Type Department Care Team (Late st Contact Info) Description 01/22/2020 Lab Requisition [facility] MICROBIOLOGY [address] [place] [address] Papa Drummond MD Cough Social History Tobacco Use Types Packs/Day Years Used Date Smoking Tobacco: Never Smokeless Tobacco: Never Alcohol Use Standard Drinks/Week Comments No 0 (1 standard drink = 0.6 oz pur e alcohol) Comments No Sex and Gender Information Value Date Recorded Sex Assigned at Female 01/27/2025 4:39 PM CDT Legal Sex Female 9:20 AM RESPIRATORY ASSISTANT Gender Identity Not on file Sexual Orientation Not on file documented as of this encounter Functional Status * Is person deaf or have serious hearing difficulty? Answer Date of Assessment Author No 12/05/2018 12:19 PM ROBINT Linda Melchor RN * Is person blind or have serious difficulty seeing? Answer Date of Assessment Author No 12/05/2018 12:19 PM ROBINT Linda Melchor RN * Does person have serious difficulty walking/climbing stairs? Answer Date of Assessment Author No 12/05/2018 12:19 PM CDT Linda Melchor RN * Does person have difficulty dressing/bathing? Answer Date of Assessment Author No 12/05/2018 12:19 PM ROBINT Linda Melchor RN * Does person have difficulty doing errands alone? Answer Date of Assessment Author No 12/05/2018 12:19 PM ROBINT Linda Melchor RN documented as of this encounter Mental Status * Does person have difficulty concentrating/remembering/making decisions? Answer Entry Date Author No 12/05/2018 12:19 PM Linda Bennett RN documented in this encounter Plan of Treatment Upcoming Encounters Date Type Department Care Team (Late st Contact Info) Description 07/31/2025 3:00 PM RESPIRATORY ASSISTANT [facility] [phone] Ana Niño MD [address] [place] [phone] 08/05/2025 9:30 AM RESPIRATORY ASSISTANT Office Visit [facility] - Dermatology [address] [place] [address], [place] [address] Sheryl Vazquez MD [address] [place] [address] 3 [place] [phone] 09/22/2025 1:00 AM RESPIRATORY ASSISTANT Clinical Support [facility] - Cardiology [address] [phone] documented as of this encounter Procedures Procedure Name Priority Date/Time Associated Diagnosis Comments SARS-COV-2 (COVID-19) IN [place] Routine 01/22/2020 1:08 PM CDT Cough documented in this encounter Results * SARS-COV-2 (COVID-19) IN HOUSE (01/22/2020 1:08 PM CDT) COVID-19 PCR Not detected Not detected, Invalid 01/23/2020 1:45 PM CDT [facility] Microbiology SPECIMEN FROM NASOPHARYNGEAL STRUCTURE / Unknown Collection / Unknown 01/22/2020 1:08 PM CDT 01/22/2020 5:00 PM CDT Narrative [facility] - 01/23/2020 1:45 PM CDT This Real Time RT-PCR assay was developed and its performance characteristics determined by [facility]. This test has been authorized [...] LAB - MICROBIOLOGY ORDERABL ES Final Result [facility] [address] [place] [phone] documented in this encounter Visit Diagnoses Diagnosis Cough documented in this encounter Care Teams Fire Regulator Relationship Specialty Start Date End Date Manoj Obregon MD [address] [place] [address] PCP - General 12/05/19 12/25/24 Elvira Jain, CRANE OPERATOR CAB-GENERAL MERCHANDISE SALESPERSON [address] [place] [address] PCP - Attributed-Cm Medicaid [place] 05/18/21 02/28/23 None, Physician PCP - General 12/26/24 03/15/25 Cristine Harris MD [address] [place] [id number] PCP - General Family Medicine 03/16/25 Brenna Fox RN [address] [facility] [address] [place] [address] Harness Cleaner 03/30/15 documented as of this encounter
--- OUTSIDE RECORDS SUMMARY | 2025-07-15 08:55 | XMS_ITS | Clinical Summary ---
Author Organization [facility] Address [address] [place] [address] Phone Care Team Providers Care Electric Milkers Installer Name Role Phone Isaias Whelan MD Unavailable Provider, None Primary Care Provider Unavailabl e Allergies Active Allergy Reactions Criticality Noted Date Comments Lorazepam Itching 08/21/2015 Carbamazepine Hallucinations 11/01/2019 Glucosamine Hives Medium 01/13/2025 Lacosamide Unknown 06/16/2017 Nitrofurantoin Rash 01/30/2025 Paroxetine [...] Tablet Take 10 mg by mouth daily. 5 Active cyclobenzaprine (FLEXERIL) 10 MG Tablet Take 1 Tablet by mouth 3 times daily as needed (back pain) for up to 14 days. 20 Tablet 5 06/16/20 25 Active Problems Problem Noted Date Diagnosed Date Syncope 12/12/2024 Encounters Date Type Department Care Team Description 06/22/2025 1:00 PM CDT [facility] [address] [place] [address] Cruz Muniz MD Other disturbances of skin sensation Discharge Disposition: Discharged to home or Selfcare 06/22/2025 Travel 06/03/2025 Transcribe Orders [facility] Central Scheduling 1 [facility] [place] [address] Cruz Muniz MD Other disturbances of skin sensation (Primary Dx) 06/02/2025 10:05 AM CDT - 06/02/2025 1:29 PM CDT Emergency [facility] Emergency 1 [facility] [place] [address] Eryn Ortiz MD Urinary tract infection without hematuria, site unspecified Discharge Disposition: Discharged to home or Selfcare 06/02/2025 Travel 05/25/2025 3:20 PM CDT - 05/25/2025 4:26 PM CDT Emergency [facility] Emergency 1 [place] [address] Albert Lang, PAC Syncope Discharge Disposition: Discharged to home or Selfcare 05/25/2025 Travel 05/25/2025 Transcribe Orders [facility] Central Scheduling 1 [place] [address] Cruz Muniz MD 05/12/2025 Documentation Only [facility] Rehab at [facility] [address] [place] [address] Polo Edwards, PT 05/12/2025 Travel 05/06/2025 8:36 AM CDT - 05/06/2025 10:32 AM CDT Emergency [facility] Emergency 1 [place] [address] Yovani Ascencio MD Syncope, unspecified syncope type Discharge Disposition: Discharged to home or Selfcare 05/06/2025 Travel 05/05/2025 3:03 PM CDT - 05/05/2025 5:48 PM CDT Emergency [facility] Emergency 1 [place] [address] Lon Shetty, Syncope Discharge Disposition: Discharged to home or Selfcare 05/05/2025 2:15 PM CDT Physical Therapy [facility] at [facility] [address] [place] [address] Waylon Aragon MD Kutchma, Joshua J, PT Discharge Disposition: Discharged to home or Selfcare 05/05/2025 Travel 04/28/2025 Telephone [facility] at [facility] [address] [place] [phone] Polo Edwards, PT Appointment (Same-day cancel) 04/23/2025 Telephone [facility] [address] [place] [phone] Mariana Guerrero, PT cancelled due to illines 04/21/2025 2:15 PM CDT Physical Therapy [facility] at [facility] [address] [place] [phone] Waylon Aragon MD Kutchma, Joshua J, PT Pain in right leg (Primary Dx); Hip weakness Discharge Disposition: Discharged to home or Selfcare 04/18/2025 5:21 PM CDT - 04/18/2025 7:39 PM CDT Emergency [facility] Emergency 1 [place] [address] Delma Sethi APRN, SHIV Pain of right hand Discharge Disposition: Discharged to home or Selfcare 04/18/2025 Travel 04/15/2025 2:30 PM CDT Physical Therapy [facility] at [facility] [address] [place] [address] Waylon Aragon MD Kutchma, Joshua J, PT Pain in right leg (Primary Dx); Hip weakness Discharge Disposition: Discharged to home or Selfcare 04/15/2025 Travel from Last 3 Months Family History [...] Sign Reading Time Taken Comments Blood Pressure 143/101 06/02/2025 1:27 PM CDT Pulse 75 06/02/2025 1:27 PM CDT Temperature 36.3 C (97.4 F) 06/02/2025 10:01 AM CDT Respiratory Rate 16 06/02/2025 1:27 PM CDT Oxygen Saturation 100% 06/02/2025 1:27 PM CDT Inhaled Oxygen Concentration - - Weight 140.6 kg (309 lb 14.1 oz) 2024 10:01 AM CDT Height 162.6 cm (5' 4) 06/02/2025 10:0 1 AM CDT Body Mass Index 53.19 06/02/2025 10:01 AM CDT Plan of Treatment Health Maintenance Due Date Last Done Comments Hepatitis C Virus (HCV) Screening 1991 Pap Smear 2012 Human Papillomavirus (HPV) Immunization (1 - 3-dose SCDM series) 2018 Cervical Cancer Screening (CCS) 2021 HPV/Cotest 2021 Influenza Immunization (#1) 2025 02/0 02/2024, 07/26/2022, 07/31/2018, Additional history exists SARS-COV-2 Immunization ( season) 2025 Respiratory Syncytial Virus (RSV) Immunization (Adult) (1 [...] Procedure Name Priority Date/Time Associated Diagnosis Comments EMG 1 EXTREMITY W/WO PARASPINAL RT Routine 06/22/2025 12:00 AM CDT Other disturbances of skin sensation XR LUMBAR SPINE 2 OR 3 VIEWS STAT 06/02/2025 10:55 AM CDT CBC WITH AUTO DIFFERENTIAL STAT 06/02/2025 10:23 AM CDT CMP (COMPREHENSIVE METABOLIC PANEL) STAT 06/02/2025 10:23 AM CDT COMPLETE BLOOD COUNT (CBC) WITH DIFF STAT 06/02/2025 10:23 AM CDT URINALYSIS REFLEX IF INDICATED BY ABNORMAL RESULTS STAT 06/02/2025 10:22 AM CDT POCT URINE HCG () STAT 06/02/2025 10:[address] HEAD OR BRAIN WO CONTRAST Stat with Interpretation 05/25/2025 2:18 PM CDT CBC WITH AUTO DIFFERENTIAL STAT 05/25/2025 2:08 PM CDT TROPONIN I, HIGH SENSITIVITY (HSTRP) STAT 05/25/2025 2:08 PM CDT CMP (COMPREHENSIVE METABOLIC PANEL) STAT 05/25/2025 2:08 PM CDT COMPLETE BLOOD COUNT (CBC) WITH DIFF STAT 05/25/2025 2:08 PM CDT EKG 12 LEAD STAT 05/25/2025 2:06 PM CDT EKG SCAN 05/25/2025 12:00 AM CDT EKG 12 LEAD STAT 05/06/2025 8:49 AM CDT EKG SCAN 05/06/2025 12:00 AM CDT CBC [...] VIEWS RIGHT STAT 04/18/2025 6:18 PM CDT from Last 3 Months Results * EMG 1 EXTREMITY W/WO PARASPINAL RT (06/22/2025 12:00 AM CDT) 06/22/2025 Narrative SCAN - 06/22/2025 12:00 AM CDT Ld Hurley MD 06/22/2025 8:30 PM Electromyogram Procedure Note Date of Procedure: 06/22/2025 Pre-operative Diagnosis: right lower extremity numbness, tingling and pain. Post-operative Diagnosis: Indications: Diagnostic Procedure Details Motor Nerve Conduction Studies: The right peroneal motor nerve shows normal distal motor latency, normal motor amplitude with stimulation at the ankle and fibular head, decreased motor amplitude proximally due to adipose tissue and normal conduction velocity. The right tibial motor nerve shows normal distal motor latency, decreased motor amplitude due to adipose tissue and normal conduction velocity. Sensory Nerve Conduction Studies: The right superficial peroneal sensory nerve shows normal sensory nerve peak latency and normal sensory amplitude. The right sural sensory nerve shows normal sensory nerve peak latency and normal sensory amplitude. The bilateral medial plantar and lateral plantar sensory nerve shows normal sensory nerve peak latency and normal sensory amplitude. F waves: F wave latency for the right peroneal nerve was normal. F wave latency for the right tibial nerve was normal. Summary Essentially normal study without evidence of compression neuropathy of right lower extremity. There was no change since last study on 01/11/2022. Clinical correlation is recommended. us Cruz Muniz MD NEUROLOGY ORDERABLES Fin al Result SCAN * XR LUMBAR SPINE 2 OR 3 VIEWS (06/02/2025 10:55 AM CDT) Anatomical Region Laterality Modality Spine, L-spine N/A Digital Radiogra phy 06/02/2025 10:5 5 AM CDT Narrative 06/02/2025 11:49 AM CDT DICTATING PHYSICIAN: Raymond Lane EXAM: XR LUMBAR SPINE 2 OR 3 VIEWS DATE: 06/02/2025 10:55 AM COMPARISON: October 17, 2024 CLINICAL HISTORY: Ordering clinician listed reason for examination right sided flank pain x 4 days after exercising, blood in urine x today. denies numbness/tingling in legs. REFERRING PROVIDER: ERYN GALE~[phone] BALJINDER FONTAINE FINDINGS: Lumbar spine three views. Straightened lumbar lordosis. Vertebral bodies have normal stature. No isthmic lysis or spondylolisthetic disease. Mild L5-S1 disc space thinning unchanged. No significant change from prior examination. Procedure Note Raymond Lane MD - 06/02/2025 DICTATING PHYSICIAN: Raymond Lane EXAM: XR LUMBAR SPINE 2 OR 3 VIEWS DATE: 06/02/2025 10:55 AM COMPARISON: October 17, 2024 CLINICAL HISTORY: Ordering clinician listed reason for examination rightsided flank pain x 4 days after exercising, blood in urine x today. deniesnumbness/tingling in legs. REFERRING PROVIDER: ERYN GALE~[phone] BALJINDER FONTAINE FINDINGS: Lumbar spine three views. Straightened lumbar lordosis.Vertebral bodies have normal stature. No isthmic lysis orspondylolisthetic disease. Mild L5-S1 disc space thinning unchanged. Nosignificant change from prior examination. us Eryn Ortiz MD IMG DIAGNOSTIC ORDERABLES Fin al Result * CBC with Auto Differential (06/02/2025 10:23 AM CDT) Only the most recent of3 resultswithin the time period is included. WBC 8.69 4.00 - 12.00 10(3)/mcL 06/02/2025 10:34 AM CDT [facility] RBC 4.26 3.80 - 5.30 10(6)/mcL 06/02/2025 10:34 AM CDT [facility] HEMOGLOBIN (HGB) 12.2 12.0 - 15.8 g/dL 06/02/2025 10:34 AM CDT [facility] HEMATOCRIT (HCT) 38.6 36.0 - 47.0 % 06/02/2025 10:34 AM CDT [facility] MCV 90.6 82.0 - 96.0 fL 06/02/2025 10:34 AM CDT [facility] MCH 28.6 26.0 - 34.0 pg 06/02/2025 10:34 AM CDT [facility] MCHC 31.6 31.0 - 36.0 g/dL 06/02/2025 10:34 AM CDT [facility] PLATELET COUNT 278 140 - 440 10(3)/mcL 06/02/2025 10:34 AM CDT [facility] RDW 13.6 11.8 - 15.5 % 06/02/2025 10:34 AM CDT [facility] MPV 10.2 9.7 - 12.4 fL 06/02/2025 10:34 AM CDT [facility] NEUTROPHILS 67.2 47.0 - 73.0 % 06/02/2025 10:34 AM CDT [facility] LYMPHOCYTES 25.5 18.0 - 42.0 % 06/02/2025 10:34 AM CDT [facility] MONOCYTES 4.6 4.0 - 12.0 % 06/02/2025 10:34 AM CDT [facility] EOSINOPHILS 2.1 0.0 - 5.0 % 06/02/2025 10:34 AM CDT [facility] BASOPHILS 0.3 0.0 - 1.0 % 06/02/2025 10:34 AM CDT [facility] IMMATURE GRANULOCYTE 0.3 0.0 - 0.4 % 06/02/2025 10:34 AM CDT [facility] ABSOLUTE NEUTROPHILS 5.83 1.60 - 7.70 10(3)/[facility] 06/02/2025 10:34 AM CDT [facility] ABSOLUTE LYMPHOCYTES 2.22 1.30 - 3.20 10(3)/[facility] 06/02/2025 10:34 AM CDT [facility] ABSOLUTE MONOCYTES 0.40 0.20 - 1.00 10(3)/[facility] 06/02/2025 10:34 AM CDT [facility] ABSOLUTE EOSINOPHIL 0.18 0.00 - 0.40 10(3)/[facility] 06/02/2025 10:34 AM CDT [facility] ABSOLUTE BASOPHILS 0.03 0.00 - 0.10 10(3)/[facility] 06/02/2025 10:34 AM CDT [facility] ABSOLUTE IMMATURE GRANULOCYTE 0.03 0.00 - 0.03 10 (3) [facility]. 06/02/2025 10:34 AM CDT [facility] NRBC PER 100 WBC 0 06/02/20 10:34 AM CDT [facility] Blood Venipuncture / Unknown 06/02/2025 10:23 AM CDT 06/02/2025 10:29 AM CDT us Eryn Ortiz MD HEMATOLOGY ORDERABLES Final R esult [facility] [address] [place] [address] * (ABNORMAL) Comprehensive Metabolic Panel (Cmp) [id number] (06/02/2025 10:23 AM CDT) Only the most recent of3 resultswithin the time period is included. SODIUM 140 136 - 145 mmol/L 06/02/2025 10:57 AM CDT [facility] POTASSIUM 4.3 3.5 - 5.1 mmol/L 06/02/2025 10:57 AM CDT [facility] CHLORIDE 106 98 - 107 mmol/L 06/02/2025 10:57 AM CDT [facility] CO2, VENOUS 26 22 - 30 mmol/L 06/02/2025 10:57 AM CDT [facility] ANION GAP 12.3 <18.0 mmol/L 06/02/2025 10:57 AM CDT [facility] GLUCOSE 90 70 - 99 mg/dL 06/02/2025 10:57 AM CDT [facility] BUN 8 5 - 18 mg/dL 06/02/2025 10:57 AM CDT [facility] CREATININE, BLOOD 0.74 0.60 - 1.00 mg/dL 06/02/2025 10:57 AM CDT [facility] BUN/CREATININE RATIO 11(L) 12 - 20 ratio 06/02/2025 10:57 AM CDT [facility] TOTAL PROTEIN 6.9 6.0 - 8.0 g/dL 06/02/2025 10:57 AM CDT [facility] ALBUMIN 3.6 3.5 - 5.0 g/dL 06/02/2025 10:57 AM CDT [facility] A/G RATIO 1.1 1.0 - 2.2 06/02/2025 10:57 AM CDT [facility] CALCIUM 8.5(L) 8.7 - 10.5 mg/dL 06/02/2025 10:57 AM CDT [facility] T BILI 0.3 0.2 - 1.2 mg/dL 06/02/2025 10:57 AM CDT [facility] SGOT (AST) 25 <43 U/L 06/02/2025 10:57 AM CDT [facility] SGPT (ALT) 13 <56 U/L 06/02/2025 10:57 AM CDT [facility] ALKALINE PHOSPHATASE 78 40 - 150 U/L 06/02/2025 10:57 AM CDT [facility] GFR, ESTIMATED >60 >=60 06/02/2025 10:57 AM CDT [facility] Comment: Creatinine Clearance is the preferred criteria for selecting drug dose adjustments in renally impaired patients. The GFR is provided as additional pertinent clinical information. GFR is reported in mL/min/1.73 sq m. Calculation based on the 2020 Chronic Kidney Disease Epidemiology Collaboration (CKD-EPI) equation refit without adjustment for race. GFR, EST. >60 >=60 025 10:57 AM [facility] Comment: Creatinine Clearance is the preferred criteria for selecting drug dose adjustments in renally impaired patients. The GFR is provided as additional pertinent clinical information. GFR is reported in mL/min/1.73 sq m. Calculation based on the 2009 Chronic Kidney Disease Epidemiology Collaboration (CKD-EPI). GFR, EST. NONAFRICAN >60 >=60 06/02/2025 10:57 AM [facility] Comment: Creatinine Clearance is the preferred criteria for selecting drug dose adjustments in renally impaired patients. The GFR is provided as additional pertinent clinical information. GFR is reported in mL/min/1.73 sq m. Calculation based on the 2009 Chronic Kidney Disease Epidemiology Collaboration (CKD-EPI). Blood Venipuncture / Unknown 06/02/2025 10:23 AM CDT 06/02/2025 10:29 AM CDT us Eryn Ortiz MD CHEMISTRY ORDERABLES Final Re sult [facility] [address] [place] [address] * (ABNORMAL) URINALYSIS REFLEX IF INDICATED BY ABNORMAL RESULTS (06/02/2025 10:22 AM CDT) SPECIFIC GRAVITY 1.015 1.003 - 1.030 06/02/2025 11:02 AM CDT [facility] URINE PH 8.0 5.0 - 9.0 06/02/2025 11:02 AM CDT [facility] WBC ESTERASE 100 /uL(A) Negative 06/02/2025 11:02 AM CDT [facility] NITRITE Negative Negative 06/02/2025 11:02 AM CDT [facility] PROTEIN, RANDOM URINE 30 mg/dL(A) Negative 06/02/2025 11:02 AM CDT [facility] URINE GLUCOSE, QUAL Negative Negative 06/02/2025 11:02 AM CDT [facility] URINE KETONES Negative Negative 06/02/2025 11:02 AM CDT [facility] UROBILINOGEN Normal Normal mg/dL 06/02/2025 11:02 AM CDT [facility] URINE BLOOD 250 /uL(A) Negative lolly/ul 06/02/2025 11:02 AM CDT [facility] URINALYSIS COLOR Yellow 06/02/20 25 11:02 AM CDT [facility] URINALYSIS CLARITY Slightly Cloudy 06/02/2025 11:02 AM CDT [facility] WBC (Urine) 0-5 Negative, 0-5 /hpf 06/02/2025 11:02 AM CDT [facility] URINE RBC'S 21-50(A) Negative, 0-2 /hpf 06/02/2025 11:02 AM CDT [facility] EPITHELIAL CELLS Moderate amount /lpf 06/02/2025 11:02 AM CDT [facility] BACTERIA, URINE Moderate(A) Negative /hpf 06/02/2025 11:02 AM CDT [facility] URINE MUCOUS Few 06/02/2025 11:02 AM CDT [facility] Urine URINE SPECIMEN OBTAINED BY CLEAN CATCH PROCEDURE / Unknown Non-Phlebotomy Collection / Unknown 06/02/2025 10:22 AM CDT 06/02/2025 10:22 AM CDT Eryn Ortiz MD URINE ORDERABLES Final Result [facility] [address] [place] [address] * POCT Urine HCG () (06/02/2025 10:20 AM CDT) POC URINE Negative POC URINE CONTROL Track Sweeper Pass Urine 06/02/2025 10:2 0 AM CDT Eryn Ortiz MD POINT OF CARE TESTING (MANUAL ) Final Result * CT HEAD OR BRAIN WO CONTRAST (05/25/2025 2:18 PM CDT) Anatomical Region Laterality Modality Head N/A Computed Tomogra phy 05/25/2025 2:18 PM CDT Impressions 05/25/2025 2:36 PM CDT IMPRESSION: 1. No evidence of an acute intracranial abnormality. 2. Partially empty sella turcica, of uncertain clinical significance. Narrative 05/25/2025 2:36 PM CDT EXAM: CT HEAD OR BRAIN WO CONTRAST 05/25/2025 2:18 PM HISTORY: Syncopal episode with a fall and injury to the right posterior head. TECHNIQUE: Noncontrast axial images of the head were performed with sagittal and coronal reformations. Dose reduction techniques were utilized. DLP = [id number] COMPARISON:CT head 12/12/2024 FINDINGS:The ventricles are midline and normal size. There is no acute parenchymal hemorrhage, edema, or mass effect. There are no extra-axial blood or fluid collections. Basal cisterns are normal in appearance and the inferior cerebellar tonsils are normally positioned. There is no acute fracture involving the bony calvarium or skull base. Mastoid air cells and paranasal sinuses are clear. Incidentally noted is a partially empty sella turcica with CSF dilatation and slight flattening of pituitary tissue. This is chronic and unchanged from prior exams, dating back to 2022. There are no other findings to suggest intracranial hypertension. Clinical correlation for related symptoms is needed.. Procedure Note Shalom Garrison MD - 05/25/2025 EXAM: CT HEAD OR BRAIN WO CONTRAST 05/25/2025 2:18 PM HISTORY: Syncopal episode with a fall and injury to the right posteriorhead. TECHNIQUE: Noncontrast axial images of the head were performed withsagittal and coronal reformations. Dose reduction techniques wereutilized. DLP = [id number] COMPARISON:CT head 12/12/2024 FINDINGS:The ventricles are midline and normal size. There is no acuteparenchymal hemorrhage, edema, or mass effect. There are no extra-axialblood or fluid collections. Basal cisterns are normal in appearance andthe inferior cerebellar tonsils are normally positioned. There is no acutefracture involving the bony calvarium or skull base. Mastoid air cells andparanasal sinuses are clear. Incidentally noted is a partially empty sella turcica with CSF dilatationand slight flattening of pituitary tissue. This is chronic and unchangedfrom prior exams, dating back to 2022. There are no other findings tosuggest intracranial hypertension. Clinical correlation for relatedsymptoms is needed.. IMPRESSION: 1. No evidence of an acute intracranial abnormality. 2. Partially empty sella turcica, of uncertain clinical significance. us Rakesh Rodriguez MD IMG CT ORDERABLES Final Re sult * TROPONIN I, HIGH SENSITIVITY (HSTRP) (05/25/2025 2:08 PM CDT) Only the most recent of2 resultswithin the time period is included. TROPONIN I, HIGH SENSITIVITY- [place] <2.7 <=14.0 ng/L 05/25/2025 2:40 PM CDT [facility] Comment: High-sensitivity troponin I results are reported in ng/L making the result appear to be 1,000 times higher than the contemporary troponin I value which is reported in ng/ml. Results from [place]. Blood Venipuncture / Unknown 05/25/2025 2:08 PM CDT 05/25/2025 2:12 PM CDT us Rakesh Rodriguez MD CHEMISTRY ORDERABLES Final Result [facility] [address] [place] [address] * EKG 12 LEAD (05/25/2025 2:06 PM CDT) Only the most recent of3 resultswithin the time period is included. [facility] Ventricular Rate 75 BPM EXTERNAL EKG Atrial Rate 75 BPM EXTERNAL EKG P-R Interval 130 ms EXTERNAL EKG QRS Duration 140 ms EXTERNAL EKG Q-T Duration 434 ms EXTERNAL EKG QTC CALCULATION 484 ms EXTERNAL EKG P [place] 41 degrees EXTERNAL EKG R [place] -2 degrees EXTERNAL EKG T [place] 10 degrees EXTERNAL EKG 05/25/2025 2:06 PM CDT Impressions EXTERNAL EKG - 05/26/2025 10:51 PM CDT Normal sinus rhythm Right bundle branch block Minimal voltage criteria for LVH, may be normal variant ( R in aVL ) Abnormal ECG When compared with ECG of 06-MAY-2025 08:49, Sinus rhythm has replaced Electronic atrial pacemaker QT has shortened Confirmed by Carly Zavala ([id number]) on 05/26/2025 10:50:59 PM Narrative Procedure Note Carly Zavala MD - 05/26/2025 IMPRESSION: Normal sinus rhythm Right bundle branch block Minimal voltage criteria for LVH, may be normal variant ( R in aVL ) Abnormal ECG When compared with ECG of 06-MAY-2025 08:49, Sinus rhythm has replaced Electronic atrial pacemaker QT has shortened Confirmed by Carly Zavala ([id number]) on 05/26/2025 10:50:59 PM us Rakesh Rodriguez MD IMG ECG ORDERABLES Final R esult Performing Organization Address City/[facility]/ZIP Co de Phone Number EXTERNAL EKG * EKG SCAN (05/25/2025 12:00 AM CDT) Only the most recent of3 resultswithin the time period is included. 05/25/2025 us Provider Scan IMG ECG ORDERABLES Final Result Performing Organization Address City/[facility]/ZIP Co de Phone Number RESULTING AGENCY * POCT Glucose (05/05/2025 3:12 PM CDT) Pathologist [facility] GLUCOSE,BEDSIDE POCT 84 70 - 99 mg/dL 05/05/2025 3:12 PM CDT [facility] Comment:Patient RN Performed Blood 05/05/2025 3:12 PM CDT 05/05/2025 3:12 PM CDT us None Provider POINT OF CARE TESTING Final Resu lt Performing Organization Address [facility] Co de Phone Number [facility] [address] [place] [address] * XR TIBIA & FIBULA RIGHT (04/18/2025 [...] Genesis Tamayo M.D. AT: AT Report ID: [id number] Reading Location: [id number] Procedure Note Genesis Tamayo MD - 04/18/2025 [...] Genesis Tamayo M.D. AT: AT Report ID: [id number] Reading Location: [id number] IMPRESSION: No acute osseous abnormality. Delma Sethi APRN, SHIV IMG DIAGNOSTIC ORD [...] Genesis Tamayo M.D. AT: AT Report ID: [id number] Reading Location: [id number] Procedure Note Genesis Tamayo MD - 04/18/2025 [...] Genesis Tamayo M.D. AT: AT Report ID: [id number] Reading Location: [id number] IMPRESSION: No acute osseous abnormality. Delma Sethi APRN, SHIV IMG DIAGNOSTIC ORD [...] Genesis Tamayo M.D. AT: AT Report ID: [id number] Reading Location: [id number] Procedure Note Genesis Tamayo MD - 04/18/2025 [...] Genesis Tamayo M.D. AT: AT Report ID: [id number] Reading Location: [place] [address] IMPRESSION: No acute osseous abnormality. Delma Sethi APRN, CERTIFIED MEDICAL CODING SPECIALIST IMG DIAGNOSTIC ORD ERABLES Final Result from Last 3 Months Insurance [place]ICAID [place] Advance Directives * Full Code (Latest Code [...] measures to stabilize the patient. Care Teams Electric Milkers Installer Relationship Specialty Start Date End Date Provider, None [place] PCP - General 05/05/25 Isaias Whelan MD [address] [place] [id number] Consulting Physician Colon and Rectal Surgery 05/16/24
--- OUTSIDE RECORDS SUMMARY | 2025-07-15 08:55 | XMS_ITS | Encounter Summary ---
Author Organization [facility] Address [address] [place] [address] Phone Care Team Providers Care Chief Enterprise Architect Name Role Phone Isaias Whelan MD Unavailable Provider, None Primary Care Provider Unavailabl e Encounter Details Date Type Department Care Team (Late st Contact Info) Description 05/25/2025 Transcribe Orders [facility] Central Scheduling 1 [place] [id number] Cruz Muniz MD [address] [place] [address] [address] [place] [address] Social History Tobacco Use Types Packs/Day Years [...] on file documented as of this encounter Visit Diagnoses Not on filedocumented in this encounter Care Teams Chief Enterprise Architect Relationship Specialty Start Date End Date Provider, None [place] PCP - General 05/05/25 Isaias Whelan MD #[address] [address] Consulting Physician Colon and Rectal Surgery 05/16/24 documented as of this encounter
--- OUTSIDE RECORDS SUMMARY | 2025-07-15 08:55 | XMS_ITS | Encounter Summary ---
Author Organization [facility] Address [address] [place] [address] Phone Care Team Providers Care Executive Administrator Name Role Phone Manoj Obregon MD Primary Care Provider [phone] Linda Santacruz MD Primary Care Provider Alberta Bernardo PT Unavailable Darlene Obregon MD Primary Care Provider Opal Jensen PT Unavailable Unavailable Delilah Yanez MD Unavailable Encounter Details Date Type Department Care Team (Late st Contact Info) Description 02/06/2017 Orders Only [facility] ProviderGin MD [address] [place] [address] Social History Tobacco Use Types Packs/Day Years Used Date Smoking Tobacco: Never Alcohol Use Standard Drinks/Week Comments No 0 (1 standard drink = 0.6 oz pur e alcohol) Comments Unknown Sex and Gender Information Value Date Recorded Sex Assigned at Not on file 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 Gender Identity Female 01/27/2023 11:59 AM CDT [...] on filedocumented in this encounter Care Teams Executive Administrator Relationship Specialty Start Date End Date Manoj Obregon MD [address] [place] [address] PCP - General 12/15/16 09/22/18 Linda Santacruz MD [address] [place] [address] PCP - General 09/23/18 07/23/19 [place] [address] [place] [address] PCP - General Internal Medicine 04/25/22 [place] [address] [place] [address] Physical Therapist Physical Therapy 01/18/22 Opal Jensen, PT Physical Therapist Physical Therapy 06/16/22 Delilah Yanez MD [address] [place] [place] [address] Consulting Physician Cardiology 06/15/23 documented as of this encounter
--- OUTSIDE RECORDS SUMMARY | 2025-07-15 08:55 | XMS_ITS | Encounter Summary ---
Author Organization [facility] Address [address] [place] [address] Phone Care Team Providers Care Contract Clerk Name Role Phone Manoj Obregon MD Primary Care Provider [phone] Manoj Obregon MD Primary Care Provider [phone] Linda Santacruz MD Primary Care Provider [phone] Alberta Bernardo PT Unavailable Darlene Obregon MD Primary Care Provider Opal Jensen PT Unavailable Unavailable Delilah Yanez MD Unavailable [phone] Encounter Details Date Type Department Care Team (Late st Contact Info) Description 12/05/2016 Orders Only [facility] Provider, MD Gin [address] [place] [address] Social History Tobacco Use Types Packs/Day Years Used Date Smoking Tobacco: Never Alcohol Use Standard Drinks/Week Comments No 0 (1 standard drink = 0.6 oz pur e alcohol) Comments Unknown Sex and Gender Information Value Date Recorded Sex Assigned at Not on file 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 us Historical Provider CV CARDIAC SERVICES PROCE DURES Final Result * CARDIOLOGY REPORT (12/05/2016) Anatomical Region Laterality Modality Other Narrative 12/05/2016 Ordered by an unspecified provider. us Historical Provider CV CARDIAC SERVICES PROCE DURES Final Result documented in this encounter Visit Diagnoses Not on filedocumented in this encounter Care Teams Contract Clerk Relationship Specialty Start Date End Date Manoj Obregon MD [address] [place], [place] [id number] PCP - General 12/15/16 09/22/18 Manoj Obregon MD [address] [place], [place] [address] PCP - General 10/31/16 12/14/16 Linda Santacruz MD [address] [place] [address] PCP - General 09/23/18 07/23/19 [place] [address] [place] [address] PCP - General Internal Medicine 04/25/22 [place] [address] [place] [address] Physical Therapist Physical Therapy 01/18/22 Opal Jensen, PT Physical Therapist Physical Therapy 06/16/22 Delilah Yanez MD [address] [place] [address] Consulting Physician Cardiology 06/15/23 documented as of this encounter
--- OUTSIDE RECORDS SUMMARY | 2025-07-15 08:56 | XMS_ITS | Encounter Summary ---
Author Organization [facility] Address [address] [place] [address] Phone Care Team Providers Care Visitor Use Assistant Name Role Phone Manoj Obregon MD Primary Care Provider [phone] Manoj Obregon MD Primary Care Provider [phone] Manoj Obregon MD Primary Care Provider [phone] Manoj Obregon MD Primary Care Provider [phone] Manoj Obrgeon MD Primary Care Provider [phone] Linda Santacruz MD Primary Care Provider [phone] Alberta Bernardo PT Unavailable [phone] Darlene Obregon MD Primary Care Provider Opal Jensen PT Unavailable Unavailable Delilah Yanez MD Unavailable [phone] Encounter Details Date Type Department Care Team (Late st Contact Info) Description 01/31/2016 Orders Only [facility] Provider, MD Gin [address] [place] [address] Social History Tobacco Use Types Packs/Day Years Used Date Smoking Tobacco: Never Alcohol Use Standard Drinks/Week Comments No 0 (1 standard drink = 0.6 oz pur e alcohol) Comments Unknown Sex and Gender Information Value Date Recorded Sex Assigned at Not on file 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 Gender Identity Female 01/27/2023 11:59 AM CDT [...] on filedocumented in this encounter Care Teams Visitor Use Assistant Relationship Specialty Start Date End Date Manoj Obregon MD [address] [place] [address] PCP - General 12/15/16 09/22/18 Manoj Obregon MD [address] [address] PCP - General 10/31/16 12/14/16 Manoj Obregon MD [address] [facility] [address] PCP - General 10/29/16 10/30/16 Manoj Obregon MD [address] [facility] [place], [place] [address] PCP - General 02/15/16 10/28/16 Manoj Obregon MD [address] [place] [address] PCP - General 12/24/15 02/14/16 Linda Santacruz MD [address] [place] [address] PCP - General 09/23/18 07/23/19 [place] [address] [place] [address] PCP - General Internal Medicine 04/25/22 [place] [address] [place] [address] Physical Therapist Physical Therapy 01/18/22 Opal Jensen, PT Physical Therapist Physical Therapy 06/16/22 Delilah Yanez MD [address] [place] [address] Consulting Physician Cardiology 06/15/23 documented as of this encounter
--- OUTSIDE RECORDS SUMMARY | 2025-07-15 08:56 | XMS_ITS | Encounter Summary ---
Author Organization [facility] Address [address] [place] [address] Phone Care Team Providers Care Counter Attendant Name Role Phone Manoj Obregon MD Primary Care Provider [phone] Manoj Obregon MD Primary Care Provider [phone] Manoj Obregon MD Primary Care Provider [phone] Manoj Obregon MD Primary Care Provider [phone] Manoj Obregon MD Primary Care Provider [phone] Manoj Obregon MD Primary Care Provider [phone] Linda Santacruz MD Primary Care Provider [phone] Alberta Bernardo PT Unavailable Darlene Obregon MD Primary Care Provider Opal Jensen PT Unavailable Unavailable Delilah Yanez MD Unavailable [phone] Encounter Details Date Type Department Care Team (Late st Contact Info) Description 07/26/2015 Orders Only [facility] Provider, MD Gin [address] [place] [address] Social History Tobacco Use Types Packs/Day Years Used Date Smoking Tobacco: Never Alcohol Use Standard Drinks/Week Comments No 0 (1 standard drink = 0.6 oz pur e alcohol) Comments Unknown Sex and Gender Information Value Date Recorded Sex Assigned at Not on file 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 Gender Identity Female 01/27/2023 11:59 AM CDT [...] on filedocumented in this encounter Care Teams Counter Attendant Relationship Specialty Start Date End Date Manoj Obregon MD [address] [place] [address] PCP - General 12/15/16 09/22/18 Manoj Obregon MD [address] [place] [address] PCP - General 10/31/16 12/14/16 Manoj Obregon MD [address] [place] [address] PCP - General 10/29/16 10/30/16 Manoj Obregon MD [address] [place] [address] PCP - General 02/15/16 10/28/16 Manoj Obregon MD [address] [place] [address] PCP - General 12/24/15 02/14/16 Manoj Obregon MD [address] [place] [address] PCP - General 03/02/15 12/23/15 Linda Santacruz MD [address] [place] [address] PCP - General 09/23/18 07/23/19 [place] [address] [place] [address] PCP - General Internal Medicine 04/25/22 [place] [address] [place] [address] Physical Therapist Physical Therapy 01/18/22 Opal Jensen, PT Physical Therapist Physical Therapy 06/16/22 Delilah Yanez MD [address] [place] [address] Consulting Physician Cardiology 06/15/23 documented as of this encounter
--- OUTSIDE RECORDS SUMMARY | 2025-07-15 08:56 | XMS_ITS | Encounter Summary ---
Author Organization [facility] Address [address] [place] [address] Phone Care Team Providers Care Floor Press Operator Name Role Phone Manoj Obregon MD Primary Care Provider [phone] Manoj Obregon MD Primary Care Provider [phone] Manoj Obregon MD Primary Care Provider [phone] Manoj Obregon MD Primary Care Provider [phone] Manoj Obregon MD Primary Care Provider [phone] Manoj Obregon MD Primary Care Provider [phone] Manoj Obregon MD Primary Care Provider [phone] Manoj Obregon MD Primary Care Provider [phone] Linda Santacruz MD Primary Care Provider [phone] Alberta Bernardo PT Unavailable [phone] Darlene Obregon MD Primary Care Provider Opal Jensen PT Unavailable Unavailable Delilah Yanez MD Unavailable [phone] Encounter Details Date Type Department Care Team (Late st Contact Info) Description 04/17/2014 Orders Only [facility] Provider, MD Gin [address] [place] [address] Social History Tobacco Use Types Packs/Day Years Used Date Smoking Tobacco: Never Assessed Comments Unknown Sex and Gender Information Value Date Recorded Sex Assigned at Not on file 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 Gender Identity Female 01/27/2023 11:59 AM CDT [...] on filedocumented in this encounter Care Teams Floor Press Operator Relationship Specialty Start Date End Date Manoj Obregon MD [address] [place] [address] PCP - General 12/15/16 09/22/18 Manoj Obregon MD [address] [place] [address] PCP - General 10/31/16 12/14/16 Manoj Obregon MD [address] [place] [address] PCP - General 10/29/16 10/30/16 Manoj Obregon MD [address] [place] [address] PCP - General 02/15/16 10/28/16 Manoj Obregon MD [address] [place] [address] PCP - General 12/24/15 02/14/16 Manoj Obregon MD [address] [place] [address] PCP - General 03/02/15 12/23/15 Manoj Obregon MD [address] [place], [place] [address] PCP - General 01/14/15 03/01/15 Manoj Obregon MD [address] [place] [address] PCP - General 01/24/12 01/13/15 Linda Santacruz MD [address] [place] [address] PCP - General 09/23/18 07/23/19 [place] [address] [place] [address] PCP - General Internal Medicine 04/25/22 [place] [address] [place] [address] Physical Therapist Physical Therapy 01/18/22 Opal Jensen, PT Physical Therapist Physical Therapy 06/16/22 Delilah Yanez MD [address] [place] [address] Consulting Physician Cardiology 06/15/23 documented as of this encounter
--- OUTSIDE RECORDS SUMMARY | 2025-07-15 08:56 | XMS_ITS | Encounter Summary ---
Author Organization [facility] Address [address] [place] [address] Phone Care Team Providers Care Pretzel Packer Name Role Phone Manoj Obregon MD Primary Care Provider [phone] Manoj Obregon MD Primary Care Provider [phone] Manoj Obregon MD Primary Care Provider [phone] Manoj Obregon MD Primary Care Provider [phone] Manoj Obregon MD Primary Care Provider [phone] Manoj Obregon MD Primary Care Provider [phone] Linda Santacruz MD Primary Care Provider [phone] Alberta Bernardo PT Unavailable [phone] Darlene Obregon MD Primary Care Provider Opal Jensen PT Unavailable Unavailable Delilah Yanez MD Unavailable [phone] Encounter Details Date Type Department Care Team (Late st Contact Info) Description 12/12/2015 Orders Only [facility] Provider, MD Gin [address] [place] [address] Social History Tobacco Use Types Packs/Day Years Used Date Smoking Tobacco: Never Alcohol Use Standard Drinks/Week Comments No 0 (1 standard drink = 0.6 oz pur e alcohol) Comments Unknown Sex and Gender Information Value Date Recorded Sex Assigned at Not on file 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 Gender Identity Female 01/27/2023 11:59 AM CDT [...] on filedocumented in this encounter Care Teams Pretzel Packer Relationship Specialty Start Date End Date Manoj Obregon MD [address] [place] [address] PCP - General 12/15/16 09/22/18 Manoj Obregon MD [address] [place] [address] PCP - General 10/31/16 12/14/16 Manoj Obregon MD [address] [place] [address] PCP - General 10/29/16 10/30/16 Manoj Obregon MD [address] [place] [address] PCP - General 02/15/16 10/28/16 Manoj Obregon MD [address] [place] [address] PCP - General 12/24/15 02/14/16 Manoj Obregon MD [address] [place] [address] PCP - General 03/02/15 12/23/15 Linda Santacruz MD [address] [place] [address] PCP - General 09/23/18 07/23/19 [place] [address] [place] [address] PCP - General Internal Medicine 04/25/22 [place] [address] [place] [address] Physical Therapist Physical Therapy 01/18/22 Opal Jensen, PT Physical Therapist Physical Therapy 06/16/22 Delilah Yanez MD [address] [place] [address] Consulting Physician Cardiology 06/15/23 documented as of this encounter
--- OUTSIDE RECORDS SUMMARY | 2025-07-15 08:56 | XMS_ITS | Encounter Summary ---
Author Organization [facility] Address [address] [place] [address] Phone Care Team Providers Care Deicer Tester Name Role Phone Manoj Obregon MD Primary Care Provider [phone] Manoj Obregon MD Primary Care Provider [phone] Manoj Obregon MD Primary Care Provider [phone] Manoj Obregon MD Primary Care Provider [phone] Linda Santacruz MD Primary Care Provider [phone] Alberta Bernardo PT Unavailable Darlene Obregon MD Primary Care Provider [phone] Opal Jensen PT Unavailable Unavailable Delilah Yanez MD Unavailable [phone] Encounter Details Date Type Department Care Team (Late st Contact Info) Description 09/03/2016 Orders Only [facility] Provider, MD Gin [address] [place] [address] Social History Tobacco Use Types Packs/Day Years Used Date Smoking Tobacco: Never Alcohol Use Standard Drinks/Week Comments No 0 (1 standard drink = 0.6 oz pur e alcohol) Comments Unknown Sex and Gender Information Value Date Recorded Sex Assigned at Not on file 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 us Historical Provider CV CARDIAC SERVICES PROCE DURES Final Result documented in this encounter Visit Diagnoses Not on filedocumented in this encounter Care Teams Deicer Tester Relationship Specialty Start Date End Date Manoj Obregon MD [address] [place] [address] PCP - General 12/15/16 09/22/18 Manoj Obregon MD [address] [place] [address] PCP - General 10/31/16 12/14/16 Manoj Obregon MD [address] [place] [address] PCP - General 10/29/16 10/30/16 Manoj Obregon MD [address] [place] [address] PCP - General 02/15/16 10/28/16 Linda Santacruz MD [address] [place] [address] PCP - General 09/23/18 07/23/19 [place] [address] [place] [address] PCP - General Internal Medicine 04/25/22 [place] [address] [place] [address] Physical Therapist Physical Therapy 01/18/22 Opal Jensen, PT Physical Therapist Physical Therapy 06/16/22 Delilah Yanez MD [address] [place] [address] Consulting Physician Cardiology 06/15/23 documented as of this encounter
--- OUTSIDE RECORDS SUMMARY | 2025-07-15 08:56 | XMS_ITS | Encounter Summary ---
Author Organization [facility] Address [address] [place] [address] Phone Care Team Providers Care Application Engineer Name Role Phone Manoj Obregon MD Primary Care Provider [phone] Manoj Obregon MD Primary Care Provider [phone] Manoj Obregon MD Primary Care Provider [phone] Manoj Obregon MD Primary Care Provider [phone] Manoj Obregon MD Primary Care Provider [phone] Manoj Obregon MD Primary Care Provider [phone] Manoj Obregon MD Primary Care Provider [phone] Manoj Obregon MD Primary Care Provider [phone] Linda Santacruz MD Primary Care Provider [phone] Alberta Bernardo PT Unavailable [phone] Darlene Obregon MD Primary Care Provider Opal Jensen PT Unavailable Unavailable Delilah Yanez MD Unavailable [phone] Encounter Details Date Type Department Care Team (Late st Contact Info) Description 08/11/2014 Orders Only [facility] Provider, MD Gin [address] [place] [address] Social History Tobacco Use Types Packs/Day Years Used Date Smoking Tobacco: Never Assessed Comments Unknown Sex and Gender Information Value Date Recorded Sex Assigned at Not on file 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 Gender Identity Female 01/27/2023 11:59 AM [...] on filedocumented in this encounter Care Teams Application Engineer Relationship Specialty Start Date End Date Manoj Obregon MD [address] [place] [address] PCP - General 12/15/16 09/22/18 Manoj Obregon MD [address] [place] [address] PCP - General 10/31/16 12/14/16 Manoj Obregon MD [address] [place] [address] PCP - General 10/29/16 10/30/16 Manoj Obregon MD [address] [place] [address] PCP - General 02/15/16 10/28/16 Manoj Obregon MD [address] [place] [address] PCP - General 12/24/15 02/14/16 Manoj Obregon MD [address] [place] [address] PCP - General 03/02/15 12/23/15 Manoj Obregon MD [address] [place], [place] [address] PCP - General 01/14/15 03/01/15 Manoj Obregon MD [address] [place] [address] PCP - General 01/24/12 01/13/15 Linda Santacruz MD [address] [place] [address] PCP - General 09/23/18 07/23/19 [place] [address] [place] [address] PCP - General Internal Medicine 04/25/22 [place] [address] [place] [address] Physical Therapist Physical Therapy 01/18/22 Opal Jensen, PT Physical Therapist Physical Therapy 06/16/22 Delilah Yanez MD [address] [place] [address] Consulting Physician Cardiology 06/15/23 documented as of this encounter
--- OUTSIDE RECORDS SUMMARY | 2025-07-15 08:56 | XMS_ITS | Encounter Summary ---
Author Organization [facility] Address [address] [place] [address] Phone Care Team Providers Care Lookback Coordinator Name Role Phone Manoj Obregon MD Primary Care Provider Linda Santacruz MD Primary Care Provider Alberta Bernardo PT Unavailable [phone] Darlene Obregon MD Primary Care Provider Opal Jensen PT Unavailable Unavailable Delilah Yanez MD Unavailable Encounter Details Date Type Department Care Team (Late st Contact Info) Description 08/07/2017 Orders Only [facility] Provider, MD Gin [address] [place] [address] Social History Tobacco Use Types Packs/Day Years Used Date Smoking Tobacco: Never Alcohol Use Standard Drinks/Week Comments No 0 (1 standard drink = 0.6 oz pur e alcohol) Comments Unknown Sex and Gender Information Value Date Recorded Sex Assigned at Not on file 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 Gender Identity Female 01/27/2023 11:59 AM CDT [...] on filedocumented in this encounter Care Teams Lookback Coordinator Relationship Specialty Start Date End Date Manoj Obregon MD [address] [place] [address] PCP - General 12/15/16 09/22/18 Linda Santacruz MD [address] [place] [address] PCP - General 09/23/18 07/23/19 [place] [address] [place] [address] PCP - General Internal Medicine 04/25/22 [place] [address] [place] [address] Physical Therapist Physical Therapy 01/18/22 Opal Jensen, PT Physical Therapist Physical Therapy 06/16/22 Delilah Yanez MD [address] [place] [address] Consulting Physician Cardiology 06/15/23 documented as of this encounter
--- OUTSIDE RECORDS SUMMARY | 2025-07-15 08:56 | XMS_ITS | Encounter Summary ---
Author Organization [facility] Address [address] [place] [address] Phone Care Team Providers Care Promotions Manager Name Role Phone Manoj Obregon MD Primary Care Provider Linda Santacruz MD Primary Care Provider Alberta Bernardo PT Unavailable Darlene Obregon MD Primary Care Provider Opal Jensen PT Unavailable Unavailable Delilah Yanez MD Unavailable Encounter Details Date Type Department Care Team (Late st Contact Info) Description 06/01/2017 Orders Only [facility] CLINCONV ProviderGin MD [address] [place] [address] Social History Tobacco Use Types Packs/Day Years Used Date Smoking Tobacco: Never Alcohol Use Standard Drinks/Week Comments No 0 (1 standard drink = 0.6 oz pur e alcohol) Comments Unknown Sex and Gender Information Value Date Recorded Sex Assigned at Not on file 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 Gender Identity Female 01/27/2023 11:59 AM [...] on filedocumented in this encounter Care Teams Promotions Manager Relationship Specialty Start Date End Date Manoj Obregon MD [address] [place] [address] PCP - General 12/15/16 09/22/18 Linda Santacruz MD [address] [place] [address] PCP - General 09/23/18 07/23/19 [place] [address] [place] [address] PCP - General Internal Medicine 04/25/22 [place] [address] [place] [address] Physical Therapist Physical Therapy 01/18/22 Opal Jensen, PT Physical Therapist Physical Therapy 06/16/22 Delilah Yanez MD [address] [place] [address] Consulting Physician Cardiology 06/15/23 documented as of this encounter
--- OUTSIDE RECORDS SUMMARY | 2025-07-15 08:56 | XMS_ITS | Clinical Summary ---
Author Organization [facility] Address [address] [place] [address] Care Team Providers Care Head Housekeeper Name Role Phone Brenna Fox RN Unavailable Cristine Harris MD Primary Care Provider [phone] Source Comments [facility],non-owned Affiliates and Associated Physician Practices is amultiple site organization consisting of ambulatory clinics and hospital sitesin [place], [place], [place] and [place]. This disclosure is being madepursuant to the Care Everywhere program and may not contain all information available regarding this patient. Last updated 18.[facility] Allergies Active Allergy Reactions Criticality Noted Date [...] by mouth daily before breakfast 5 Active Active Problems Patient Care Coordination No te Formatting of this note migh t be different from the original. Enrolled in [place] [employer] [facility] 01/23/2019 Size 1 and Size 4 given [facility] 07/2018 Problem Noted Date Diagnosed Date Pacemaker [...] Date Resolved Date Encounter for ultrasound 12/04/2018 Immunizations Immunization Administration Dates Next Due HEP [...] care, and heating? Not very hard 05/17/2024 [facility] [facility] Occup[facility] ional [facility] - Occupational Stress [...] place to sleep or slept in a group home (including now)? 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 Gender Identity Not on file Sexual Orientation Not on file Last Filed Vital Signs Vital Sign Reading Time Taken Comments Blood Pressure 133/83 03/29/2025 7:10 PM CDT Pulse 74 03/29/2025 7:10 PM CDT Temperature 36.8 C (98.3 F) 03/29/2025 1:11 PM CDT Respiratory Rate 10 03/29/2025 7:10 PM CDT Oxygen Saturation 97% 03/29/2025 7:10 PM CDT Inhaled Oxygen Concentration 21% 12/13/2024 8 :21 AM CDT Weight 140.2 kg (309 lb) 03/29/2025 1:11 PM CDT Height 162.6 cm (5' 4) 03/29/2025 1:11 PM CDT Body Mass Index 53.04 03/29/2025 1:11 PM CDT Plan of Treatment Upcoming Encounters Date Type Department Care Team (Late st Contact Info) Description 07/31/2025 3:00 PM HUMAN SERVICE COORDINATOR [facility] [address] Ana Niño MD [address] [place] [address] 08/05/2025 9:30 AM HUMAN SERVICE COORDINATOR Office Visit [facility] - Dermatology [address] [place] [address], [place] [address] Sheryl Vazquez MD [address] [place] [address] 3 [place] [address] 09/22/2025 1:00 AM HUMAN SERVICE COORDINATOR Clinical Support [facility] - Cardiology [address] [facility], [address] [address] Health Maintenance Due Date Last Done Comments HEPATITIS C SCREENING 07/19/2009 PNEUMOCOCCAL VACCINE (1 of 2 - PCV) 2010 PAP SMEAR 2012 HPV VACCINE (1 - 3-dose SCDM series) 2018 DEPRESSION SCREENING 09/17/2024 COVID-19 VACCINE ( season) 2025 INFLUENZA VACCINE (#1) 2025 , 07/26/2022, 07/31/2018, Additional history exists DTAP/TDAP/TD VACCINES [...] this topic Medical Devices Implanted Type Area Configuration Technician Device Identifier Shelf Expiration Date Model / Serial / Lot Pacemkr [place] [employer] Crd - [id number] Implanted:Qty: 1 on 12/17/2024 by Ana Niño MD at [facility] [employer] [id number] 04/30/2026 [id number] / [id number] / NA Env Defib 3.3x2.9in Aigisrx Icd Tyrx Lg - [id number] Implanted:Qty: 1 on 12/17/2024 by Ana Niño MD at [facility] Right: Chest [employer] [id number] 09/17/2025 [id number] / [id number] / [id number] Procedures Procedure Name Priority Date/Time Associated Diagnosis Comments RI PM/ICD REMOTE TECH SERV Routine 04/19/2025 2:51 PM CDT Sick sinus syndrome (HCC) Cardiac pacemaker RI PM DEVICE INTERROGATE REMOTE Routine 04/19/2025 2:51 PM CDT Sick sinus syndrome (HCC) Cardiac pacemaker HIV-1 HIV-2 ANTIBODY + HIV P24 AG PANEL Routine 11/27/2018 3:05 PM CDT POTS (postural orthostatic tachycardia syndrome) from Last 3 Months or Most Recently Relevant to Health Maintenance Results * RI PM DEVICE INTERROGATE REMOTE, RI PM/ICD REMOTE TECH SERV (04/19/2025 2:51 PM CDT) Narrative Matthew Hargrove MD - 04/19/2025 2:51 PM CDT Matthew Hargrove MD 04/19/2025 2:52 PM Dear Ryne Bloom, Olga reviewed the remote interrogation of your device. Your device's sensing and capture thresholds are appropriate and stable. Lead impedances for your device: Atrial lead: 399 ohms RV lead: 513 ohms You are currently paced: Atrial: 8.5 % Ventricle: 1.4 % During this most recent monitored period (03/11/2025 - 03/22/2025), you had no sustained arrhythmias. The estimated remaining battery life for your device is 14.6 years. Device function is normal, and no programming changes are required. Please call our offices if you have any further questions. Sincerely, Matthew Hargrove 04/19/2025 us Matthew Hargrove MD PROCEDURE/MINOR SURGICAL ORDERAB LES Final Result * HIV-1 HIV-2 ANTIBODY + HIV P24 AG PANEL (11/27/2018 3:05 PM CDT) HIV1/2 Ab + P24 Ag Non Reactive Non Reactive 11/27/2018 10:54 PM CDT [facility] Blood BLOOD SPECIMEN / Unknown Venipuncture / Unknown 11/27/2018 3:05 PM CDT 11/27/2018 3:24 PM CDT Narrative [facility] - 11/27/2018 10:54 PM CDT No Laboratory evidence of HIV infection. us Hattie Avila MD LAB - CHEMISTRY ORDERABLES Fin al Result [facility] [place] [address] from Last 3 Months or Most Recently Relevant to Health Maintenance Insurance Member Subscriber Plan / Payer (Ef fective for All Dates) Name:Ryne Bloom Relation to Subscriber:Self Name:RYNE BLOOM Payer ID:Not on file Group ID:Not on file Type:Medicaid [place] Address: [address] Member Subscriber Plan / Payer (Ef fective for All Dates) Name:Ryne Bloom Relation to Subscriber:Self Name:RYNE BLOOM Payer ID:Not on file Group ID:Not on file Type:Medicaid [place] Address: [address] OF [place] Member Subscriber Plan / Payer (Ef fective for All Dates) Name:Ryne Bloom Relation to Subscriber:Self Name:RYNE BLOOM Payer ID:Not on file Group ID:Not on file Type:Medicaid [place] Address: [address] [place] Member Subscriber Plan / Payer (Ef fective for All Dates) Name:Ryne Bloom Relation to Subscriber:Self Name:RYNE BLOOM Payer ID:Not on file Group ID:Not on file Type:[place]icaid [place] Address: [address] [place] Member Sub[place] Plan / Payer (Ef fective for All Dates) Name:Ryne Bloom E Relation to Subscriber:Self Name:RYNE BLOOM Payer ID:Not on file Group ID:Not on file Type:[place]icaid [place] Address: [address] [place] Member Subscriber Plan / Payer (Ef fective for All Dates) Name:Ryne Bloom Relation to Subscriber:Self Name:RYNE BLOOM Payer ID:Not on file Group ID:Not on file Type:Medicaid [place] Address: [address] Member Subscriber Plan / Payer (Ef fective for All Dates) Name:Ryne Bloom Relation to Subscriber:Self Name:RYNE BLOOM Payer ID:Not on file Group ID:Not on file Type:Medicaid [place] Address: [address] Member Subscriber Plan / Payer (Ef fective for All Dates) Name:Ryne Bloom Relation to Subscriber:Self Name:RYNE BLOOM Payer ID:Not on file Group ID:Not on file Type:Medicaid [place] Address: [address] Member Subscriber Plan / Payer (Ef fective for All Dates) Name:Ryne Bloom E Relation to Subscriber:Self Name:RYNE BLOOM Payer ID:Not on file Group ID:Not on file Type:Medicaid [place] Address: [address] OF [place] [facility] Advance Directives * Full Code (Latest Code Status on File) Date Activated Date Inactivated Comments 12/12/2024 6:00 PM 12/18/2024 5:06 PM * Full Code Date Activated Date Inactivated Comments 05/17/2024 1:08 AM 05/18/2024 1:59 PM * Full Code Date Activated Date Inactivated Comments 04/23/2024 8:42 PM 04/26/2024 12:43 PM * Full Code Date Activated Date Inactivated Comments 07/10/2023 8:05 PM 07/12/2023 3:12 PM * Full Code Date Activated Date Inactivated Comments 12/09/2018 10:38 PM 12/12/2018 12:59 PM Care Teams Head Housekeeper Relationship Specialty Start Date End Date Cristine Harris MD [address] [place] [address] PCP - General Family Medicine 03/16/25 Brenna Fox RN [address] [facility] [address] [place] [address] Dining Room Maid 03/30/15
--- OUTSIDE RECORDS SUMMARY | 2025-07-15 08:56 | XMS_ITS | Encounter Summary ---
Author Organization [facility] Address [address] [place] [address] Phone Care Team Providers Care Upward Bound Director Name Role Phone Manoj Obregon MD Primary Care Provider [phone] Manoj Obregon MD Primary Care Provider [phone] Manoj Obregon MD Primary Care Provider [phone] Manoj Obregon MD Primary Care Provider [phone] Manoj Obregon MD Primary Care Provider [phone] Manoj Obregon MD Primary Care Provider [phone] Manoj Obregon MD Primary Care Provider [phone] Manoj Obregon MD Primary Care Provider [phone] Linda Santacruz MD Primary Care Provider [phone] Alberta Bernardo PT Unavailable [phone] Darlene Obregon MD Primary Care Provider Opal Jensen PT Unavailable Unavailable Delilah Yanez MD Unavailable [phone] Encounter Details Date Type Department Care Team (Late st Contact Info) Description 08/10/2014 Orders Only [facility] CAR CLINCONV Provider, MD Gin [address] [place] [address] Social History Tobacco Use Types Packs/Day Years Used Date Smoking Tobacco: Never Assessed Comments Unknown Sex and Gender Information Value Date Recorded Sex Assigned at Not on file 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 Gender Identity Female 01/27/2023 11:59 AM [...] on filedocumented in this encounter Care Teams Upward Bound Director Relationship Specialty Start Date End Date Manoj Obregon MD [address] [place] [address] PCP - General 12/15/16 09/22/18 Manoj Obregon MD [address] [address] PCP - General 10/31/16 12/14/16 Manoj Obregon MD [address] [place] [address] PCP - General 10/29/16 10/30/16 Manoj Obregon MD [address] [place] [address] PCP - General 02/15/16 10/28/16 Manoj Obregon MD [address] [place] [address] PCP - General 12/24/15 02/14/16 Manoj Obregon MD [address] [place] [address] PCP - General 03/02/15 12/23/15 Manoj Obregon MD [address] [place], [place] [address] PCP - General 01/14/15 03/01/15 Manoj Obregon MD [address] [place] [address] PCP - General 01/24/12 01/13/15 Linda Santacruz MD [address] [address] PCP - General 09/23/18 07/23/19 [place] [address] [place] [address] PCP - General Internal Medicine 04/25/22 [place] [address] [place] [address] Physical Therapist Physical Therapy 01/18/22 Opal Jensen, PT Physical Therapist Physical Therapy 06/16/22 Delilah Yanez MD [address] [place] [address] Consulting Physician Cardiology 06/15/23 documented as of this encounter
--- OUTSIDE RECORDS SUMMARY | 2025-07-15 08:56 | XMS_ITS | Encounter Summary ---
Author Organization [facility] Address [address] [place] [address] Phone Care Team Providers Care Manager Managing Name Role Phone Manoj Obregon MD Primary Care Provider [phone] Manoj Obregon MD Primary Care Provider [phone] Manoj Obregon MD Primary Care Provider [phone] Manoj Obregon MD Primary Care Provider [phone] Manoj Obregon MD Primary Care Provider [phone] Manoj Obregon MD Primary Care Provider [phone] Linda Santacruz MD Primary Care Provider [phone] Alberta Bernardo PT Unavailable Darlene Obregon MD Primary Care Provider Opal Jensen PT Unavailable Unavailable Delilah Yanez MD Unavailable [phone] Encounter Details Date Type Department Care Team (Late st Contact Info) Description 11/10/2015 Orders Only [facility] CLINCONV Provider, MD Gin [address] [place] [address] Social History Tobacco Use Types Packs/Day Years Used Date Smoking Tobacco: Never Alcohol Use Standard Drinks/Week Comments No 0 (1 standard drink = 0.6 oz pur e alcohol) Comments Unknown Sex and Gender Information Value Date Recorded Sex Assigned at Not on file 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 Gender Identity Female 01/27/2023 11:59 AM [...] on filedocumented in this encounter Care Teams Manager Managing Relationship Specialty Start Date End Date Manoj Obregon MD [address] [place] [address] PCP - General 12/15/16 09/22/18 Manoj Obregon MD [address] [facility] [address] PCP - General 10/31/16 12/14/16 Manoj Obregon MD [address] [facility] [place] [address] PCP - General 10/29/16 10/30/16 Manoj Obregon MD [address] [facility] [place] [address] PCP - General 02/15/16 10/28/16 Manoj Obregon MD [address] [facility] [place] [address] PCP - General 12/24/15 02/14/16 Manoj Obregon MD [address] [place] [address] PCP - General 03/02/15 12/23/15 Linda Santacruz MD [address] [place] [address] PCP - General 09/23/18 07/23/19 [place] [address] [place] [address] PCP - General Internal Medicine 04/25/22 [place] [address] [place] [address] Physical Therapist Physical Therapy 01/18/22 Opal Jensen, PT Physical Therapist Physical Therapy 06/16/22 Delilah Yanez MD [address] [place] [address] Consulting Physician Cardiology 06/15/23 documented as of this encounter
--- OUTSIDE RECORDS SUMMARY | 2025-07-15 08:56 | XMS_ITS | Encounter Summary ---
Author Organization [facility] Address [address] [place] [address] Phone Care Team Providers Care Powerhouse Mechanic Helper Name Role Phone Manoj Obregon MD Primary Care Provider [phone] Manoj Obregon MD Primary Care Provider [phone] Manoj Obregon MD Primary Care Provider [phone] Manoj Obregon MD Primary Care Provider [phone] Manoj Obregon MD Primary Care Provider [phone] Manoj Obregon MD Primary Care Provider [phone] Manoj Obregon MD Primary Care Provider [phone] Manoj Obregon MD Primary Care Provider [phone] Linda Santacruz MD Primary Care Provider [phone] Alberta Bernardo PT Unavailable [phone] Darlene Obregon MD Primary Care Provider pOal Jensen PT Unavailable Unavailable Delilah Yanez MD Unavailable [phone] Encounter Details Date Type Department Care Team (Late st Contact Info) Description 04/10/2014 Orders Only [facility] CAR CLINCONV Provider, MD Gin [address] [place] [address] Social History Tobacco Use Types Packs/Day Years Used Date Smoking Tobacco: Never Assessed Comments Unknown Sex and Gender Information Value Date Recorded Sex Assigned at Not on file 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 Gender Identity Female 01/27/2023 11:59 AM CDT [...] on filedocumented in this encounter Care Teams Powerhouse Mechanic Helper Relationship Specialty Start Date End Date Manoj Obregon MD [address] [place] [address] PCP - General 12/15/16 09/22/18 Manoj Obregon MD [address] [place] [address] PCP - General 10/31/16 12/14/16 Manoj Obregon MD [address] [place] [address] PCP - General 10/29/16 10/30/16 Manoj Obregon MD [address] [place] [address] PCP - General 02/15/16 10/28/16 Manoj Obregon MD [address] [place] [address] PCP - General 12/24/15 02/14/16 Manoj Obregon MD [address] [place] [address] PCP - General 03/02/15 12/23/15 Manoj Obregon MD [address] [place], [place] [address] PCP - General 01/14/15 03/01/15 Manoj Obregon MD [address] [place] [address] PCP - General 01/24/12 01/13/15 Linda Santacruz MD [address] [place] [address] PCP - General 09/23/18 07/23/19 [place] [address] [place] [address] PCP - General Internal Medicine 04/25/22 [place] [address] [place] [address] Physical Therapist Physical Therapy 01/18/22 Opal Jensen, PT Physical Therapist Physical Therapy 06/16/22 Delilah Yanez MD [address] [place] [address] Consulting Physician Cardiology 06/15/23 documented as of this encounter
--- OUTSIDE RECORDS SUMMARY | 2025-07-15 08:56 | XMS_ITS | Encounter Summary ---
Author Organization [facility] Address [address] [place] [address] Phone Care Team Providers Care Bottle House Cleaners Supervisor Name Role Phone Manoj Obregon MD Primary Care Provider [phone] Manoj Obregon MD Primary Care Provider [phone] Manoj Obregon MD Primary Care Provider [phone] Manoj Obregon MD Primary Care Provider [phone] Manoj Obregon MD Primary Care Provider [phone] Manoj Obregon MD Primary Care Provider [phone] Manoj Obregon MD Primary Care Provider [phone] Manoj Obregon MD Primary Care Provider [phone] Linda Santacruz MD Primary Care Provider [phone] Alberta Bernardo PT Unavailable [phone] Darlene Obregon MD Primary Care Provider Opal Jensen PT Unavailable Unavailable Delilah Yanez MD Unavailable [phone] Encounter Details Date Type Department Care Team (Late st Contact Info) Description 08/19/2014 Orders Only [facility] CAR CLINCONV Provider, MD Gin [address] [place] [address] Social History Tobacco Use Types Packs/Day Years Used Date Smoking Tobacco: Never Assessed Comments Unknown Sex and Gender Information Value Date Recorded Sex Assigned at Not on file 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 Gender Identity Female 01/27/2023 11:59 AM CDT [...] on filedocumented in this encounter Care Teams Bottle House Cleaners Supervisor Relationship Specialty Start Date End Date Manoj Obregon MD [address] [place] [address] PCP - General 12/15/16 09/22/18 Manoj Obregon MD [address] [place] [address] PCP - General 10/31/16 12/14/16 Manoj Obregon MD [address] [place] [address] PCP - General 10/29/16 10/30/16 Manoj Obregon MD [address] [place] [address] PCP - General 02/15/16 10/28/16 Manoj Obregon MD [address] [place] [address] PCP - General 12/24/15 02/14/16 Manoj Obregon MD [address] [place] [address] PCP - General 03/02/15 12/23/15 Manoj Obregon MD [address] [place], [place] [address] PCP - General 01/14/15 03/01/15 Manoj Obregon MD [address] [place] [address] PCP - General 01/24/12 01/13/15 Linda Santacrzu MD [address] [place] [address] PCP - General 09/23/18 07/23/19 [place] [address] [place] [address] PCP - General Internal Medicine 04/25/22 [place] [address] [place] [address] Physical Therapist Physical Therapy 01/18/22 Opal Jensen, PT Physical Therapist Physical Therapy 06/16/22 Delilah Yanez MD [address] [place] [address] Consulting Physician Cardiology 06/15/23 documented as of this encounter
--- OUTSIDE RECORDS SUMMARY | 2025-07-15 08:56 | XMS_ITS | Encounter Summary ---
Author Organization [facility] Address [address] [place] [address] Phone Care Team Providers Care Gospel Worker Name Role Phone Manoj Obregon MD Primary Care Provider [phone] Linda Santacruz MD Primary Care Provider Alberta Bernardo PT Unavailable [phone] Darlene Obregon MD Primary Care Provider Opal Jensen PT Unavailable Unavailable Delilah Yanez MD Unavailable Encounter Details Date Type Department Care Team (Late st Contact Info) Description 12/04/2017 Orders Only [facility] CAR CLINCONV Provider, MD Gin [address] [place] [address] Social History Tobacco Use Types Packs/Day Years Used Date Smoking Tobacco: Never Smokeless Tobacco: Never Alcohol Use Standard Drinks/Week Comments No 0 (1 standard drink = 0.6 oz pur e alcohol) Comments No Sex and Gender Information Value Date Recorded Sex Assigned at Not on file 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 Gender Identity Female 01/27/2023 11:59 AM CDT [...] on filedocumented in this encounter Care Teams Gospel Worker Relationship Specialty Start Date End Date Manoj Obregon MD [address] [place] [address] PCP - General 12/15/16 09/22/18 Linda Santacruz MD [address] [place] [address] PCP - General 09/23/18 07/23/19 [place] [address] [place] [address] PCP - General Internal Medicine 04/25/22 [place] [address] [place] [address] Physical Therapist Physical Therapy 01/18/22 Opal Jensen, PT Physical Therapist Physical Therapy 06/16/22 Delilah Yanez MD [address] [place] [address] Consulting Physician Cardiology 06/15/23 documented as of this encounter
--- OUTSIDE RECORDS SUMMARY | 2025-07-15 08:56 | XMS_ITS | Encounter Summary ---
Author Organization [facility] Address [address] [place] [address] Phone Care Team Providers Care Junior Account Manager Name Role Phone Manoj Obregon MD Primary Care Provider [phone] Manoj Obregon MD Primary Care Provider [phone] Manoj Obregon MD Primary Care Provider [phone] Manoj Obregon MD Primary Care Provider [phone] Manoj Obregon MD Primary Care Provider [phone] Manoj Obregon MD Primary Care Provider Linda Santacruz MD Primary Care Provider [phone] Alberta Bernardo PT Unavailable Darlene Obregon MD Primary Care Provider Opal Jensen PT Unavailable Unavailable Delilah Yanez MD Unavailable [phone] Encounter Details Date Type Department Care Team (Late st Contact Info) Description 09/13/2015 Orders Only [facility] Provider, MD Gin [address] [place] [address] Social History Tobacco Use Types Packs/Day Years Used Date Smoking Tobacco: Never Alcohol Use Standard Drinks/Week Comments No 0 (1 standard drink = 0.6 oz pur e alcohol) Comments Unknown Sex and Gender Information Value Date Recorded Sex Assigned at Not on file 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 Gender Identity Female 01/27/2023 11:59 AM CDT [...] on filedocumented in this encounter Care Teams Junior Account Manager Relationship Specialty Start Date End Date Manoj Obregon MD [address] [place] [address] PCP - General 12/15/16 09/22/18 Manoj Obregon MD [address] [place] [address] PCP - General 10/31/16 12/14/16 Manoj Obregon MD [address] [place] [address] PCP - General 10/29/16 10/30/16 Manoj Obregon MD [address] [place] [address] PCP - General 02/15/16 10/28/16 Manoj Obregon MD [address] [place] [address] PCP - General 12/24/15 02/14/16 Manoj Obregon MD [address] [place] [address] PCP - General 03/02/15 12/23/15 Linda Santacruz MD [address] [place] [address] PCP - General 09/23/18 07/23/19 [place] [address] [place] [address] PCP - General Internal Medicine 04/25/22 [place] [address] [place] [address] Physical Therapist Physical Therapy 01/18/22 Opal Jensen, PT Physical Therapist Physical Therapy 06/16/22 Delilah Yanez MD [address] [place] [address] Consulting Physician Cardiology 06/15/23 documented as of this encounter
--- OUTSIDE RECORDS SUMMARY | 2025-07-15 08:56 | XMS_ITS | Encounter Summary ---
Author Organization [facility] Address [address] [place] [address] Phone Care Team Providers Care Mercury Washer Name Role Phone Manoj Obregon MD Primary Care Provider [phone] Manoj Obregon MD Primary Care Provider [phone] Manoj Obregon MD Primary Care Provider [phone] Manoj Obregon MD Primary Care Provider [phone] Manoj Obregon MD Primary Care Provider [phone] Manoj Obregon MD Primary Care Provider [phone] Manoj Obregon MD Primary Care Provider [phone] Linda Santacruz MD Primary Care Provider [phone] Alberta Bernardo PT Unavailable [phone] Darlene Obregon MD Primary Care Provider Opal Jensen PT Unavailable Unavailable Delilah Yanez MD Unavailable [phone] Encounter Details Date Type Department Care Team (Late st Contact Info) Description 01/25/2015 Orders Only [facility] Provider, MD Gin [facility] [place] [address] Social History Tobacco Use Types Packs/Day Years Used Date Smoking Tobacco: Never Alcohol Use Standard Drinks/Week Comments No 0 (1 standard drink = 0.6 oz pur e alcohol) Comments Unknown Sex and Gender Information Value Date Recorded Sex Assigned at Not on file 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 [facility] Provider CV CARDIAC SERVICES PROCE DURES Final Result * CARDIOLOGY REPORT (01/25/2015) Anatomical Region Laterality Modality Other Narrative 01/25/2015 Ordered by an unspecified provider. [facility] Provider CV CARDIAC SERVICES PROCE DURES Final Result * CARDIOLOGY REPORT (01/25/2015) Anatomical Region Laterality Modality Other Narrative 01/25/2015 Ordered by an unspecified provider. [facility] Provider CV CARDIAC SERVICES PROCE DURES Final Result documented in this encounter Visit Diagnoses Not on filedocumented in this encounter Care Teams Mercury Washer Relationship Specialty Start Date End Date Manoj Obregon MD [address] [place] [address] PCP - General 12/15/16 09/22/18 Manoj Obregon MD [address] [place] [address] PCP - General 10/31/16 12/14/16 Manoj Obregon MD [address] [place] [address] PCP - General 10/29/16 10/30/16 Manoj Obregon MD [address] [place] [address] PCP - General 02/15/16 10/28/16 Manoj Obregon MD [address] [place] [address] PCP - General 12/24/15 02/14/16 Manoj Obregon MD [address] [place] [address] PCP - General 03/02/15 12/23/15 Manoj Obregon MD [address] [place] [address] PCP - General 01/14/15 03/01/15 Linda Santacruz MD [address] [place] [address] PCP - General 09/23/18 07/23/19 [place] [address] [place] [address] PCP - General Internal Medicine 04/25/22 [place] [address] [place] [address] Physical Therapist Physical Therapy 01/18/22 Opal Jensen, PT Physical Therapist Physical Therapy 06/16/22 Delilah Yanez MD [address] [place] [address] Consulting Physician Cardiology 06/15/23 documented as of this encounter
--- OUTSIDE RECORDS SUMMARY | 2025-07-15 08:56 | XMS_ITS | Encounter Summary ---
Author Organization [facility] Address [address] [place] [address] Phone Care Team Providers Care General Road Supervisor Name Role Phone Manoj Obregon MD Primary Care Provider [phone] Manoj Obregon MD Primary Care Provider [phone] Manoj Obregon MD Primary Care Provider [phone] Manoj Obregon MD Primary Care Provider [phone] Manoj Obregon MD Primary Care Provider [phone] Manoj Obregon MD Primary Care Provider [phone] Manoj Obregon MD Primary Care Provider [phone] Manoj Obregon MD Primary Care Provider [phone] Linda Santacruz MD Primary Care Provider Alberta Bernardo PT Unavailable [phone] Darlene Obregon MD Primary Care Provider [phone] Opal Jensen PT Unavailable Unavailable Delilah Yanez MD Unavailable [phone] Encounter Details Date Type Department Care Team (Late st Contact Info) Description 11/04/2014 Orders Only [facility] Provider, MD Gin [address] [place] [address] Social History Tobacco Use Types Packs/Day Years Used Date Smoking Tobacco: Never Assessed Comments Unknown Sex and Gender Information Value Date Recorded Sex Assigned at Not on file 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 Gender Identity Female 01/27/2023 11:59 AM CDT [...] on filedocumented in this encounter Care Teams General Road Supervisor Relationship Specialty Start Date End Date Manoj Obregon MD [address] [place] [address] PCP - General 12/15/16 09/22/18 Manoj Obregon MD [address] [place] [address] PCP - General 10/31/16 12/14/16 Manoj Obregon MD [address] [place] [address] PCP - General 10/29/16 10/30/16 Manoj Obregon MD [address] [place] [address] PCP - General 02/15/16 10/28/16 Manoj Obregon MD [address] [place] [address] PCP - General 12/24/15 02/14/16 Manoj Obregon MD [address] [place] [address] PCP - General 03/02/15 12/23/15 Manoj Obregon MD [address] [place], [place] [address] PCP - General 01/14/15 03/01/15 Manoj Obregon MD [address] [place] [address] PCP - General 01/24/12 01/13/15 Linda Santacruz MD [address] [place] [address] PCP - General 09/23/18 07/23/19 [place] [address] [place] [address] PCP - General Internal Medicine 04/25/22 [place] [address] [place] [address] Physical Therapist Physical Therapy 01/18/22 Opal Jensen, PT Physical Therapist Physical Therapy 06/16/22 Delilah Yanez MD [address] [place] [address] Consulting Physician Cardiology 06/15/23 documented as of this encounter
--- OUTSIDE RECORDS SUMMARY | 2025-07-15 08:56 | XMS_ITS | Encounter Summary ---
Author Organization [facility] Address [address] [place] [address] Phone Care Team Providers Care Senior Account Manager Name Role Phone Manoj Obregon MD Primary Care Provider [phone] Manoj Obregon MD Primary Care Provider [phone] Manoj Obregon MD Primary Care Provider [phone] Manoj Obregon MD Primary Care Provider [phone] Manoj Obregon MD Primary Care Provider [phone] Manoj Obregon MD Primary Care Provider [phone] Manoj Obregon MD Primary Care Provider [phone] Manoj Obregon MD Primary Care Provider [phone] Linda Santacruz MD Primary Care Provider [phone] Alberta Bernardo PT Unavailable [phone] Darlene Obregon MD Primary Care Provider [phone] Opal Jensen PT Unavailable Unavailable Delilah Yanez MD Unavailable [phone] Encounter Details Date Type Department Care Team (Late st Contact Info) Description 05/05/2014 Orders Only [facility] Provider, MD Gin [address] [place] [address] Social History Tobacco Use Types Packs/Day Years Used Date Smoking Tobacco: Never Assessed Comments Unknown Sex and Gender Information Value Date Recorded Sex Assigned at Not on file 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 Gender Identity Female 01/27/2023 11:59 AM CDT [...] on filedocumented in this encounter Care Teams Senior Account Manager Relationship Specialty Start Date End Date Manoj Obregon MD [address] [place] [address] PCP - General 12/15/16 09/22/18 Manoj Obregon MD [address] [place] [address] PCP - General 10/31/16 12/14/16 Manoj Obregon MD [address] [place] [address] PCP - General 10/29/16 10/30/16 Manoj Obregon MD [address] [place] [address] PCP - General 02/15/16 10/28/16 Manoj Obregon MD [address] [place] [address] PCP - General 12/24/15 02/14/16 Manoj Obregon MD [address] [place] [address] PCP - General 03/02/15 12/23/15 Manoj Obregon MD [address] [place], [place] [address] PCP - General 01/14/15 03/01/15 Manoj Obregon MD [address] [place] [address] PCP - General 01/24/12 01/13/15 Linda Santacruz MD [address] [place] [address] PCP - General 09/23/18 07/23/19 [place] [address] [place] [address] PCP - General Internal Medicine 04/25/22 [place] [address] [place] [address] Physical Therapist Physical Therapy 01/18/22 Opal Jensen, PT Physical Therapist Physical Therapy 06/16/22 Delilah Yanez MD [address] [place] [address] Consulting Physician Cardiology 06/15/23 documented as of this encounter
--- OUTSIDE RECORDS SUMMARY | 2025-07-15 08:56 | XMS_ITS | Clinical Summary ---
Author Organization [facility] Address [address] [place] [address] Care Team Providers Care Caravan Park And Camping Ground Manager Name Role Phone Alberta Bernardo All PT Unavailable Darlene Obregon MD Primary Care Provider Opal Jensen PT Unavailable Unavailable Delilah Yanez MD Unavailable Allergies Active Allergy Reactions Criticality Noted Date Comments Adhesive Itching Medium 07/12/2023 Carbamazepine Hallucinations High 11/01/2019 Lacosamide Rash Medium 11/13/2015 Lorazepam Rash Medium 03/29/2015 Nitrofurantoin Rash Medium 01/30/2025 Paroxetine Itching,Rash Medium 03/29/2015 Ceftriaxone Urticaria Medium [...] a day 60 tablet 11 04/02/2024 Active rOPINIRole (REQUIP) 0.25 mg tabletIndicatio ns:Restless Legs Syndrome Take one tablet one hour before bedtime for one week, then 2 tablets before bedtime if pain is not controlled. 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 She is in understanding. 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 2010 - Labor, SVD. SINHA. 2. 2016 - IOL, SVD. [place]. Last Filed Vital Signs Vital Sign Reading Time Taken Comments Blood Pressure 101/69 03/19/2025 2:15 PM CDT Pulse 105 03/19/2025 2:15 PM CDT Temperature 36.7 C (98 F) 04/07/2024 10:30 AM CDT Respiratory Rate 18 03/19/2025 2:15 PM CDT Oxygen Saturation 96% 03/19/2025 2:15 PM CDT Inhaled Oxygen Concentration - - Weight 140.3 kg (309 lb 6.4 oz) 03/19/2025 2:15 PM CDT Height 162.6 cm (5' 4) 03/19/2025 2:15 PM CDT Body Mass Index 53.11 03/19/2025 2:15 PM CDT Plan of Treatment Health Maintenance Due Date Last Done Comments Depression Screening 1991 Varicella Vaccines (1 of 2 - 13+ 2-dose series) 2004 Regular Well Visit/Exam 18-64 2009 Pneumococcal vaccine <65 (1 of 2 - PCV) 2010 HPV Vaccines (1 - 3-dose SCD M series) 2018 Cervical Cancer Screening 05/24/2019 05/24/2018 Influenza Vaccine (#1) 2025 4, 07/26/2022, 07/31/2018, Additional history exists DTaP/Tdap/Td Vaccine (2 - Td or Tdap) 10/09/2028 10/09/2018 Hepatitis B Screening Completed 03/25/1997 , 10/22/1996, 08/27/1996 Hepatitis C Screening Completed 05/24/2018, 016 Procedures Procedure Name Priority Date/Time Associated Diagnosis Comments THINPREP EXTRUDER PAP (IMAGE GUIDED) LIQUID-BASED PREP Routine 05/24/2018 [...] SL Comment:Result canceled by t he ancillary CLINICAL INFORMATION: [facility] LMP [facility] Previous Pap NONE GIVEN [facility] Prev. Bx NONE GIVEN [facility] SOURCE: [facility] [place] Comment:Cervix, Endocervix Pap, specimen adequacy [facility] - [place] Comment: Satisfactory for evaluation. Endocervical/transformation zone component present. Pap, general categorization CANCELED [facility] - [facility] Comment:Result canceled by t he ancillary HPV interp [facility] - [place] Comment:Negative for intraep ithelial lesion or malignancy. Infection: CANCELED [facility] - [place] Comment:Result canceled by t he ancillary COMMENTS [facility] - [place] Comment: This Pap test has been evaluated with computer assisted technology. Wool Puller [facility] - Comment: XAVIER HOOD(ASCP) CT screening location: [place] [address] Administration NISHA [place] [address] Review enrollment representative CANCELED [facility] - [place] Comment:Result canceled by t he ancillary Pathologist CANCELED [facility] - [place] Comment:Result canceled by t he ancillary Comment [facility] - [place] Comment: [...] Comment Performing Organization Information: Site ID: Name: [facility] Address: [facility] Administration [place] [address] Director: Vanessa Lucas us Maricarmen Delaney MD LAB PATHOLOGY ORDERAB LES Final Result [facility] [place] * Hepatitis C antibody (05/24/2018 2:41 PM [...] Agency Comment Performing Organization Information: Site ID: ID Name: [facility] Address: [address] [place], [place] [address] [place] [id number] Director: Andrew James D.O., MPH us Maricarmen Delaney MD LAB MICROBIOLOGY - GE NERAL ORDERABLES Final Result Performing Organization Address City/[facility] Co de Phone Number [facility] - ADAN Strong from Last 3 Months or Most Recently Relevant to Health Maintenance Insurance [facility] Advance Directives For more information, please contact: [phone] * Full Code (Latest Code Status on File) Date Activated Date Inactivated Comments 2019 2:29 PM 2019 7:44 PM Care Teams Caravan Park And Camping Ground Manager Relationship Specialty [place] [address] [place] [address] PCP - General Internal Medicine 04/25/22 [place] [address] [place] [address] Physical Therapist Physical Therapy 01/18/22 Opal Jensen, PT Physical Therapist Physical Therapy 06/16/22 Delilah Yanez MD [address] [place] [address] Consulting Physician Cardiology 06/15/23
--- OUTSIDE RECORDS SUMMARY | 2025-07-15 08:56 | XMS_ITS | Encounter Summary ---
Author Organization [facility] Address [address] [place] [address] Phone Care Team Providers Care Residential Property Consultant Name Role Phone Manoj Obregon MD Primary Care Provider [phone] Linda Santacruz MD Primary Care Provider [phone] Alberta Bernardo PT Unavailable [phone] Darlene Obregon MD Primary Care Provider Opal Jensen PT Unavailable Unavailable Delilah Yanez MD Unavailable [phone] Encounter Details Date Type Department Care Team (Late st Contact Info) Description 12/15/2017 Orders Only [facility] Provider, MD Gin [address] [place] [address] Social History Tobacco Use Types Packs/Day Years Used Date Smoking Tobacco: Never Smokeless Tobacco: Never Alcohol Use Standard Drinks/Week Comments No 0 (1 standard drink = 0.6 oz pur e alcohol) Comments No Sex and Gender Information Value Date Recorded Sex Assigned at Not on file 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 Gender Identity Female 01/27/2023 11:59 AM CDT [...] on filedocumented in this encounter Care Teams Residential Property Consultant Relationship Specialty Start Date End Date Manoj Obregon MD [address] [place] [address] PCP - General 12/15/16 09/22/18 Linda Santacruz MD [address] [place] [address] PCP - General 09/23/18 07/23/19 [place] [address] [place] [address] PCP - General Internal Medicine 04/25/22 [place] [address] [place] [address] Physical Therapist Physical Therapy 01/18/22 Opal Jensen, PT Physical Therapist Physical Therapy 06/16/22 Delilah Yanez MD [address] [place] [address] Consulting Physician Cardiology 06/15/23 documented as of this encounter
--- OUTSIDE RECORDS SUMMARY | 2025-07-15 08:56 | XMS_ITS | Encounter Summary ---
Author Organization [facility] Address [address] [place] [address] Phone Care Team Providers Care Explosive Ordnance Disposal Manager Name Role Phone Manoj Obregon MD Primary Care Provider [phone] Manoj Obregon MD Primary Care Provider [phone] Manoj Obregon MD Primary Care Provider [phone] Manoj Obregon MD Primary Care Provider [phone] Linda Santacruz MD Primary Care Provider [phone] Alberta Bernardo PT Unavailable [phone] Darlene Obregon MD Primary Care Provider Opal Jensen PT Unavailable Unavailable Delilah Yanez MD Unavailable [phone] Encounter Details Date Type Department Care Team (Late st Contact Info) Description 05/16/2016 Orders Only [facility] Provider, MD Gin [address] [place] [address] Social History Tobacco Use Types Packs/Day Years Used Date Smoking Tobacco: Never Alcohol Use Standard Drinks/Week Comments No 0 (1 standard drink = 0.6 oz pur e alcohol) Comments Unknown Sex and Gender Information Value Date Recorded Sex Assigned at Not on file 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 Gender Identity Female 01/27/2023 11:59 AM [...] on filedocumented in this encounter Care Teams Explosive Ordnance Disposal Manager Relationship Specialty Start Date End Date Manoj Obregon MD [address] [place] [address] PCP - General 12/15/16 09/22/18 Manoj Obregon MD [address] [place] [address] PCP - General 10/31/16 12/14/16 Manoj Obregon MD [address] [place] [address] PCP - General 10/29/16 10/30/16 Manoj Obregon MD [address] [place] [address] PCP - General 02/15/16 10/28/16 Linda Santacruz MD [address] [place] [address] PCP - General 09/23/18 07/23/19 [place] [address] [place] [address] PCP - General Internal Medicine 04/25/22 [place] [address] [place] [address] Physical Therapist Physical Therapy 01/18/22 Opal Jensen, PT Physical Therapist Physical Therapy 06/16/22 Delilah Yanez MD [address] [place] [address] Consulting Physician Cardiology 06/15/23 documented as of this encounter
--- OUTSIDE RECORDS SUMMARY | 2025-07-15 08:57 | XMS_ITS | Encounter Summary ---
Author Organization [facility] Address [address] [place] [address] Phone Care Team Providers Care Oil Burner Installer Name Role Phone Manoj Obregon MD Primary Care Provider [phone] Manoj Obregon MD Primary Care Provider [phone] Manoj Obregon MD Primary Care Provider [phone] Manoj Obregon MD Primary Care Provider [phone] Linda Santacruz MD Primary Care Provider [phone] Alberta Bernardo PT Unavailable [phone] Darlene Obregon MD Primary Care Provider [phone] Opal Jensen PT Unavailable Unavailable Delilah Yanez MD Unavailable [phone] Encounter Details Date Type Department Care Team (Late st Contact Info) Description 03/30/2016 Orders Only [facility] Provider, MD Gin [address] [place] [id number] Social History Tobacco Use Types Packs/Day Years Used Date Smoking Tobacco: Never Alcohol Use Standard Drinks/Week Comments No 0 (1 standard drink = 0.6 oz pur e alcohol) Comments Unknown Sex and Gender Information Value Date Recorded Sex Assigned at Not on file 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 [facility] Provider CV CARDIAC SERVICES PROCE DURES Final Result * CARDIOLOGY REPORT (03/30/2016) Anatomical Region Laterality Modality Other Narrative 03/30/2016 Ordered by an unspecified provider. [facility] Provider CV CARDIAC SERVICES PROCE DURES Final Result * CARDIOLOGY REPORT (03/30/2016) Anatomical Region Laterality Modality Other Narrative 03/30/2016 Ordered by an unspecified provider. [facility] Provider CV CARDIAC SERVICES PROCE DURES Final Result * CARDIOLOGY REPORT (03/30/2016) Anatomical Region Laterality Modality Other Narrative 03/30/2016 Ordered by an unspecified provider. [facility] Provider CV CARDIAC SERVICES PROCE DURES Final Result documented in this encounter Visit Diagnoses Not on filedocumented in this encounter Care Teams Oil Burner Installer Relationship Specialty Start Date End Date Manoj Obregon MD [address] [place] [address] PCP - General 12/15/16 09/22/18 Manoj Obregon MD [address] [place] [address] PCP - General 10/31/16 12/14/16 Manoj Obregon MD [address] [place] [address] PCP - General 10/29/16 10/30/16 Manoj Obregon MD [address] [place] [address] PCP - General 02/15/16 10/28/16 Linda Santacruz MD [address] [place], [place] [id number] PCP - General 09/23/18 07/23/19 [place] [address] [place] [address] PCP - General Internal Medicine 04/25/22 [place] [address] [place] [address] Physical Therapist Physical Therapy 01/18/22 Opal Jensen, PT Physical Therapist Physical Therapy 06/16/22 Delilah Yanez MD [address] [place] [address] Consulting Physician Cardiology 06/15/23 documented as of this encounter
--- NOTE | 2025-07-15 09:17 | ED.URI ---
HPI - URI/Sore Throat General Chief Complaint: Upper Respiratory Infection Stated Complaint: Ear and Throat Pain Time Seen by Provider: 07/15/25 09:14 Source: patient and RN notes reviewed Mode of arrival: ambulatory Limitations: no limitations History of Present Illness HPI Narrative: 34-year-old female presents concern for sore throat, ear pain that started 2 days ago. She reports fever, sweats. She denies runny nose and stuffy nose. MD elicited complaint: sore throat Related Data Home Medications ?Medication ?Instructions ?Recorded ?Confirmed ?Last Taken ?Type bupropion HCl 100 mg tablet 300 mg PO DAILY 06/15/21 05/02/24 Unknown History budesonide-formoterol HFA 160 2 puff inhalation Q12H 07/11/22 05/02/24 Unknown History mcg-4.5 mcg/actuation aerosol inhaler (Symbicort) metoprolol succinate 25 mg 25 mg PO DAILY 07/11/22 05/02/24 Unknown History tablet,extended release 24 hr albuterol sulfate 90 mcg/actuation 2 puff inhalation QID PRN 01/18/23 05/02/24 Unknown History aerosol inhaler Shortness Of Breath Or Wheezing magnesium oxide 400 mg PO BID 01/18/23 05/02/24 Unknown History buspirone 10 mg tablet 10 mg PO BID 05/02/24 05/02/24 Unknown History clobetasol 0.05 % scalp solution See Rx Instructions .Route .COMPLEX 05/02/24 05/02/24 Unknown History topiramate 50 mg tablet 50 mg PO DAILY 05/02/24 05/02/24 Unknown History ketoconazole 2 % shampoo topical 07/15/25 Unknown History Allergies Allergy/AdvReac Type Severity Reaction Status Date / Time adhesive tape Allergy Mild Rash Verified 07/15/25 08:50 lorazepam Allergy Mild Itching Verified 07/15/25 08:50 paroxetine Allergy Mild Rash Verified 07/15/25 08:50 carbamazepine Allergy Unknown Unknown Verified 07/15/25 08:50 ceftriaxone (From Rocephin) Allergy Unknown Unknown Verified 07/15/25 08:50 lacosamide Allergy Unknown Rash Verified 07/15/25 08:50 Review of Systems Review of Systems: CONSTITUTIONAL: Reports malaise, chills, sweats, or fever. EYES: Denies visual changes, redness, or discharge. ENT: Denies rhinorrhea, congestion, sinus pain. Reports otalgia and sore throat. CARDIOVASCULAR: Denies chest pain, palpitations, or edema. RESPIRATORY: Denies cough. Denies dyspnea. GASTROINTESTINAL: Denies abdominal pain, nausea, vomiting, diarrhea SKIN: Denies rash or itching. MUSCULOSKELETAL: Denies myalgia. NEUROLOGIC: Denies headache. All systems reviewed & are unremarkable except as noted in HPI and below PMFSH Past Medical History Medical History LILI (obstructive sleep apnea) Postural orthostatic tachycardia syndrome Hemorrhoid UTI (urinary tract infection) H/O cardiac pacemaker Depression Sick sinus syndrome Seizure Anxiety Surgical History Surgical History (Reviewed 05/07/25 @ :00 by Radha Orourke MD) H/O tubal ligation S/P cardiac pacemaker procedure Family History Family History (Reviewed 05/07/25 @ :00 by Radha Orourke MD) Mother Family history non-contributory Social History Social History Smoking status: Never smoker Substance use: never Living arrangements: with family Gender identity (if verbalized by the patient): Female Sexual Orientation (if Verbalized by the Patient): Straight or Heterosexual Spiritual care concerns: No Comments At time of signature, agree with nursing past medical, surgical, social and family history. There is no relevant family history pertinent to the presenting complaint Exam Narrative: GENERAL: Well-appearing, well-nourished, and in no acute distress. HEAD: Normocephalic EYES: PERRLA, conjunctivae clear ENT: Nares clear. Mucous membranes moist. TM pearly bradley with dull light reflex bilaterally; no tragal tenderness. Oropharynx erythematous without lesions. Tonsils not enlarged and without exudate, no drooling, no hoarseness, no trismus, uvula midline. NECK: Supple. No lymphadenopathy CHEST: Clear to auscultation, breath sounds equal. No wheezing, rhonchi, rales, or stridor. No respiratory distress, speaks in full sentences. HEART: Regular rate and rhythm. No murmur heard. SKIN: Warm, clammy, no rash. NEURO: Alert and oriented x3. PSYCH: Normal mood and affect Course Course Emergency Course: Patient is aware of diagnosis, understands and agrees to treatment plan. Anticipatory guidance given. Patient agrees to follow-up as directed and is aware of reasons to seek care at the emergency department. Portions of this record may have been created with voice recognition software Level of Care: Express Care Visit Vital Signs Vital signs: Vital Signs Temperature 99.2 F 07/15/25 08:36 Pulse Rate 94 07/15/25 08:36 Respiratory Rate 22 H 07/15/25 08:36 Blood Pressure 130/60 07/15/25 08:36 Pulse Oximetry 97 07/15/25 08:36 Oxygen Delivery Room Air 07/15/25 08:36 Temperature 99.2 F 07/15/25 08:36 Pulse Rate 94 07/15/25 08:36 Respiratory Rate 22 H 07/15/25 08:36 Blood Pressure 130/60 07/15/25 08:36 Pulse Oximetry 97 07/15/25 08:36 Oxygen Delivery Room Air 07/15/25 08:36 Reviewed. MDM - URI/Sore Throat MDM Narrative Medical decision making narrative: Differential diagnosis considered: Grant virus, strep pharyngitis, allergic rhinitis, upper respiratory tract infection, sinusitis, rhinosinusitis, nasopharyngitis. viral pharyngitis, otitis media, otitis externa, pneumonia, bronchitis, viral cough syndrome, viral syndrome, and influenza. Exam findings show no acute concerns or changes; patient is non-toxic appearing and is in no distress. Patient is appropriate for outpatient treatment and follow-up. Lab Data Attestation: I reviewed the patient's lab results. Critical Care Time Critical Care Time Critical Care Time: No Discharge Plan Discharge Clinical Impression: Acute streptococcal pharyngitis Patient Disposition: Home Condition: Stable Instructions: Antibiotic Form, Strep Throat in Children (ED) Additional Instructions: -Take the medication as prescribed. Throw away the toothbrush after 24hours of antibiotic. -Eat and drink things that are easy to swallow, like tea or soup, or popsicles to suck on. -Oral rinses such as: Salt water gargles and/or may use topical anesthetic (eg. Chloraseptic spray) or lozenges to relieve dryness or throat pain). -Take Tylenol and ibuprofen as needed for pain and fever as directed. -Frequent hand washing or hand whipped topping finisher is one of the best ways to prevent spread of infection. -Follow up with primary care provider in 2-3 days if condition is not improving; or seek ER visit if you have trouble breathing, cannot drink enough fluids, have muffled voice, difficulty opening your mouth, or severe swelling. Patient Language: Argentine Prescriptions: New azithromycin [Zithromax Z-Bethel] 250 mg tablet See Rx Instructions .ROUTE .COMPLEX Qty: 6 0RF Rx Instructions: take 500 mg today (day 1), then 250 mg for 4 days (days 2-5) No Action metoprolol succinate 25 mg Tablet Extended Release 24 Hr 25 mg PO DAILY budesonide-formoterol [Symbicort] 160-4.5 mcg/actuation Hfa Aerosol Inhaler 2 puff INHALATION Q12H magnesium oxide 400 mg magnesium Tablet 400 mg PO BID albuterol sulfate 90 mcg/actuation Hfa Aerosol Inhaler 2 puff INHALATION QID PRN (Reason: Shortness Of Breath Or Wheezing) buspirone 10 mg tablet 10 mg PO BID clobetasol 0.05 % solution See Rx Instructions .ROUTE .COMPLEX Rx Instructions: see rx instructions topiramate 50 mg tablet 50 mg PO DAILY ketoconazole 2 % shampoo TOPICAL bupropion HCl 100 mg tablet 300 mg PO DAILY Follow-up/Referrals: UNKNOWN,DOCTOR [Primary Care Provider] Time of Disposition: 09:22
[2025-07-15 09:28] LABS: EDSTREPNEGPOS1 Positive (Negative)
== END 2025-07-15 09:25 | disposition home or self-care (01) ==
PROVIDERS: Emergency Provider Nurse Practitioner
DX: J02.0 Streptococcal pharyngitis (principal); G40.909 Epilepsy, unspecified, not intractable, without status epilepticus; F41.9 Anxiety disorder, unspecified; F32.A Depression, unspecified; Z95.0 Presence of cardiac pacemaker
CPT/HCPCS: 87880; 99213; G0463

== ENCOUNTER 2025-08-14 10:47 | Emergency (ER) | payer OTHER, SELFPAY ==
--- NOTE | 2025-08-14 10:49 | ED.URI ---
HPI - URI/Sore Throat General Chief Complaint: Upper Respiratory Infection Stated Complaint: Cold Symptoms Time Seen by Provider: 08/14/25 10:49 Source: patient Mode of arrival: ambulatory Limitations: no limitations History of Present Illness HPI Narrative: Lizeth is a 35-year-old female patient presenting to the clinic today with complaints of coughing, nausea, sinus pressure, sneezing, body aches, green nasal drainage, and chest congestion x2 weeks. She denies any fevers or chills. Has not taken any medications for her symptoms. Related Data Home Medications ?Medication ?Instructions ?Recorded ?Confirmed ?Last Taken ?Type bupropion HCl 100 mg tablet 300 mg PO DAILY 06/15/21 05/02/24 Unknown History budesonide-formoterol HFA 160 2 puff inhalation Q12H 07/11/22 05/02/24 Unknown History mcg-4.5 mcg/actuation aerosol inhaler (Symbicort) metoprolol succinate 25 mg 25 mg PO DAILY 07/11/22 05/02/24 Unknown History tablet,extended release 24 hr albuterol sulfate 90 mcg/actuation 2 puff inhalation QID PRN 01/18/23 05/02/24 Unknown History aerosol inhaler Shortness Of Breath Or Wheezing magnesium oxide 400 mg PO BID 01/18/23 05/02/24 Unknown History buspirone 10 mg tablet 10 mg PO BID 05/02/24 05/02/24 Unknown History clobetasol 0.05 % scalp solution See Rx Instructions .Route .COMPLEX 05/02/24 05/02/24 Unknown History topiramate 50 mg tablet 50 mg PO DAILY 05/02/24 05/02/24 Unknown History ketoconazole 2 % shampoo topical 07/15/25 Unknown History ropinirole 0.25 mg tablet mg 08/14/25 Unknown History Allergies Allergy/AdvReac Type Severity Reaction Status Date / Time adhesive tape Allergy Mild Rash Verified 08/14/25 11:05 lorazepam Allergy Mild Itching Verified 08/14/25 11:05 paroxetine Allergy Mild Rash Verified 08/14/25 11:05 carbamazepine Allergy Unknown Unknown Verified 08/14/25 11:05 ceftriaxone (From Rocephin) Allergy Unknown Unknown Verified 08/14/25 11:05 lacosamide Allergy Unknown Rash Verified 08/14/25 11:05 Review of Systems Review of Systems: Pertinent positives per HPI. Patient denies any fever, chills, rash, visual changes, dizziness, shortness of breath, chest pain, palpitations, vomiting, diarrhea, constipation, abdominal pain, or any urinary issues. [facility] Past Medical History Medical History LILI (obstructive sleep apnea) Postural orthostatic tachycardia syndrome Hemorrhoid UTI (urinary tract infection) H/O cardiac pacemaker Depression Sick sinus syndrome Seizure Anxiety Surgical History Surgical History H/O tubal ligation S/P cardiac pacemaker procedure Family History Family History Mother Family history non-contributory Social History Social History Smoking status: Never smoker Substance use: never Living arrangements: with family Gender identity (if verbalized by the patient): Female Sexual Orientation (if Verbalized by the Patient): Straight or Heterosexual Spiritual care concerns: No Comments At the time of my signature, I reviewed and agree with the nursing past medical, surgical, social, and family history. There is no relevant family history pertinent to the patient complaint. Exam Narrative: General: Well-developed, morbidly obese, in no apparent distress Head: Normocephalic, atraumatic Eyes: Pupils equally round and reactive to light bilaterally, EOM intact, sclera and conjunctive clear, no discharge, lids normal Ears: TMs intact and congested, ear canals clear, no drainage, grossly hearing normal. Nose: Nares patent, green nasal discharge, moderate inflammation, maxillary and frontal sinus tenderness. Mouth: Oral pharynx red without lesions or masses, good dentition, MMM. Postnasal drip Neck: Supple, trachea midline, no enlargement of anterior or posterior cervical nodes, no thyroid masses or goiter palpable. Cardio: Regular rate and rhythm, s1 and s2 normal, no murmur appreciated. Resp: Clear to auscultation bilaterally, no rhonchi, rales, wheezing or rubs Course Course Emergency Course: Portions of this record may have been created with voice recognition software. Level of Care: Express Care Visit Vital Signs Vital signs: Vital signs reviewed MDM - URI/Sore Throat MDM Narrative Medical decision making narrative: At the time of visit patient is resting comfortably on the exam table. Patient appears to be nontoxic. Complaints of coughing, sinus pressure, nausea, sneezing, body aches, green nasal drainage, and chest congestion x2 weeks. She denies any fevers or chills. Has not taken any medications for her symptoms. On exam patient has bilateral TMs intact and congested, green nasal drainage, moderate turbinate inflammation, oral pharynx red with postnasal drip, heart rate regular rate and rhythm, lung sounds are clear. Plan: I suspect patient has sinusitis. Prescription for doxycycline and prednisone was sent to the pharmacy. Supportive measures were discussed with the patient and they voiced understanding discharge instructions and agrees to treatment plan. Return precautions reviewed Differential Diagnosis Differential diagnosis: Likely upper respiratory infection, otitis media, sinusitis, viral infection, bronchitis, influenza, pharyngitis and other (COVID) Discharge Plan Discharge Clinical Impression: Sinusitis Qualifiers: Sinusitis location: maxillary Chronicity: acute Recurrence: non-recurrent Qualified Code(s): J01.00 - Acute maxillary sinusitis, unspecified Patient Disposition: Home Condition: Stable Instructions: Antibiotic Form, Sinusitis (ED) Additional Instructions: Take prescription medications only as prescribed-doxycycline and prednisone Increase fluids and stay well hydrated May take Tylenol or motrin as directed on bottle for pain/fever May use Flonase 1 spray in each nare daily May take OTC antihistamines such as Zyrtec or Claritin daily as directed on bottle May apply Vicks vapor rub to chest to open sinuses Sinus rinses for congestion Cepacol spray, cough drops, throat lozenges, warm tea with honey/lemon, gargle salt water to soothe throat BRAT diet for diarrhea Clear liquids x 24 hours then advance as tolerated for nausea/vomiting Go to the ED if you develop a worsening in your condition- high fever not controlled by Tylenol or Motrin, dehydration, weakness, lethargy, shortness of breath, or chest pain. Follow up with your PCP in 3-5 days if symptoms persist. Patient Language: Upper Sorbian Prescriptions: New doxycycline hyclate 100 mg tablet 100 mg PO DAILY 10 Days Qty: 10 0RF prednisone 20 mg tablet 40 mg PO DAILY 5 Days Qty: 10 0RF No Action metoprolol succinate 25 mg Tablet Extended Release 24 Hr 25 mg PO DAILY budesonide-formoterol [Symbicort] 160-4.5 mcg/actuation Hfa Aerosol Inhaler 2 puff INHALATION Q12H magnesium oxide 400 mg magnesium Tablet 400 mg PO BID albuterol sulfate 90 mcg/actuation Hfa Aerosol Inhaler 2 puff INHALATION QID PRN (Reason: Shortness Of Breath Or Wheezing) buspirone 10 mg tablet 10 mg PO BID clobetasol 0.05 % solution See Rx Instructions .ROUTE .COMPLEX Rx Instructions: see rx instructions topiramate 50 mg tablet 50 mg PO DAILY ketoconazole 2 % shampoo TOPICAL ropinirole 0.25 mg tablet bupropion HCl 100 mg tablet 300 mg PO DAILY Follow-up/Referrals: UNKNOWN,DOCTOR [Non-Staff] Time of Disposition: 11:07 Quality NIHSS Nursing Documentation ED NIHSS nursing documentation: reviewed/agree
[2025-08-14 10:59] VITALS: BP 103/65; PULSE 86; RESP 16; TEMP 36.8; O2SAT 99
== END 2025-08-14 11:13 | disposition home or self-care (01) ==
PROVIDERS: Emergency Provider Nurse Practitioner Family
DX: J01.00 Acute maxillary sinusitis, unspecified (principal); F41.9 Anxiety disorder, unspecified; F32.A Depression, unspecified
CPT/HCPCS: 99213; G0463